=== PATIENT | male | born 1950 | race Caucasian/White ===

== ENCOUNTER → 2018-08-26 13:45 | Outpatient (CLI) | payer MEDICARE, OTHER, SELFPAY ==
[2017-11-18 12:42] VITALS: BMI 28.5
[2018-08-26 14:16] LABS: Absolute Lymphocyte Count 2.31 X10^3/ul (0.83-4.51); Absolute Neutrophil Count 3.8 X10^3/uL (2.0-7.7); Basophil# 0.02 X10^3/uL; Basophil% 0.3 % (0-1); Eosinophil# 0.13 X10^3/uL; Eosinophils% 1.9 % (0-5); Hematocrit 46.5 % (40-54); Hemoglobin 15.9 g/dl (13.0-16.5); Lymphocyte # 2.31 X10^3/ul (4.0); Lymphocyte % 33.6 % (19-41); Mean Corp Hgb Conc 34.2 g/gl (32-36); Mean Corpuscular Hgb 31.2 pg (27.0-32.0); Mean Corpuscular Volume 91.4 fL (80-94); Mean Platelet Vol. 9.7 fl (6.2-12.0); Monocyte# 0.57 X10^3/uL; Monocyte% 8.3 % (0-10); Neutrophil # 3.84 X10^3/uL (2.7-7.7); Neutrophil % 55.8 % (47-70); Platelet Count 331 K/mm3 (150-450); RBC Distribution Width CV 12.5 % (11.6-14.6); RBC Distribution Width SD 41.2 fl (35.1-43.9); Red Blood Count 5.09 M/mm3 (4.6-6.2); White Blood Count 6.9 K/mm3 (4.4-11.0)
[2018-08-26 14:20] LABS: POSITIVE COUNT NO; POSITIVE DIFFERENTIAL NO; POSITIVE MORPHOLOGY NO
[2018-08-26 14:42] LABS: Vitamin D,25 Hydroxy 27.4 ng/mL (29.95-100.01)
[2018-08-26 14:49] LABS: ALB/GLOB Ratio 0.8 RATIO (0.9-2.4); AST(SGOT) 35 U/L (15-37); Alanine Aminotransfer ALT/SGPT 56 U/L (16-61); Albumin, Serum 3.7 g/dL (3.2-5.0); Alkaline Phosphatase 81 U/L (45-117); Anion Gap 10 (5-15); BUN 31 mg/dL (7-18); BUN/Creat Ratio 23.8 RATIO (10-20); Chloride 101 mmol/L (98-107); EST Glomerular Filtration Rate 59 mL/min (>60); Est Glom Filt Rate - Afr Amer 71 mL/min (>60); Globulin 4.4 g/dL (2.2-4.2); Glucose 219 mg/dL (74-106); Potassium 4.3 mmol/L (3.5-5.1); Protein, Total 8.1 g/dL (6.4-8.2); Sodium Level 136 mmol/L (136-145)
[2018-08-26 15:36] LABS: PSA,Total - Annual Screen 1.43 ng/mL (0.00-4.00)
== END ==
PROVIDERS: Family Provider Family Medicine Geriatric Medicine; PCP Family Medicine Geriatric Medicine; Visit Provider Family Medicine Geriatric Medicine
DX: E55.9 Vitamin D deficiency, unspecified (principal); E11.9 Type 2 diabetes mellitus without complications; I10 Essential (primary) hypertension
CPT/HCPCS: 36415; 80053; 82306; 84153; 84443; 85025; G0103

== ENCOUNTER → 2018-11-25 13:37 | Outpatient (CLI) | payer MEDICARE, OTHER, SELFPAY ==
[2017-11-18 12:42] VITALS: BMI 28.5
[2018-11-25 16:58] LABS: Absolute Lymphocyte Count 2.54 X10^3/ul (0.83-4.51); Absolute Neutrophil Count 4.8 X10^3/uL (2.0-7.7); Basophil# 0.02 X10^3/uL; Basophil% 0.2 % (0-1); Eosinophil# 0.14 X10^3/uL; Eosinophils% 1.7 % (0-5); Hemoglobin 15.7 g/dl (13.0-16.5); Lymphocyte # 2.54 X10^3/ul (4.0); Lymphocyte % 31.4 % (19-41); Mean Corp Hgb Conc 32.7 g/gl (32-36); Mean Corpuscular Hgb 30.8 pg (27.0-32.0); Mean Corpuscular Volume 94.1 fL (80-94); Mean Platelet Vol. 9.7 fl (6.2-12.0); Monocyte# 0.63 X10^3/uL; Monocyte% 7.8 % (0-10); Neutrophil # 4.76 X10^3/uL (2.7-7.7); Neutrophil % 58.8 % (47-70); Platelet Count 337 K/mm3 (150-450); RBC Distribution Width CV 13.1 % (11.6-14.6); White Blood Count 8.1 K/mm3 (4.4-11.0)
[2018-11-25 16:59] LABS: POSITIVE COUNT NO; POSITIVE DIFFERENTIAL NO; POSITIVE MORPHOLOGY NO
[2018-11-25 17:14] LABS: Vitamin D,25 Hydroxy 18.2 ng/mL (29.95-100.01)
[2018-11-25 17:22] LABS: ALB/GLOB Ratio 0.9 RATIO (0.9-2.4); AST(SGOT) 24 U/L (15-37); Alanine Aminotransfer ALT/SGPT 44 U/L (16-61); Alkaline Phosphatase 70 U/L (45-117); Anion Gap 10 (5-15); BUN 26 mg/dL (7-18); BUN/Creat Ratio 21.1 RATIO (10-20); Calcium,Total 9.6 mg/dL (8.5-10.1); Chloride 103 mmol/L (98-107); Creatinine, Serum 1.23 mg/dL (0.70-1.30); EST Glomerular Filtration Rate 63 mL/min (>60); Est Glom Filt Rate - Afr Amer 76 mL/min (>60); Globulin 4.4 g/dL (2.2-4.2); Glucose 95 mg/dL (74-106); Potassium 4.7 mmol/L (3.5-5.1); Protein, Total 8.4 g/dL (6.4-8.2); Sodium Level 138 mmol/L (136-145); Thyroid Stim Hormone (TSH) 1.05 uIU/mL (0.358-3.74)
== END ==
PROVIDERS: Family Provider Family Medicine Geriatric Medicine; PCP Family Medicine Geriatric Medicine; Visit Provider Family Medicine Geriatric Medicine
DX: E11.9 Type 2 diabetes mellitus without complications (principal); E55.9 Vitamin D deficiency, unspecified; I10 Essential (primary) hypertension
CPT/HCPCS: 36415; 80053; 82306; 84443; 85025

== ENCOUNTER → 2020-02-20 11:03 | Outpatient (CLI) | payer MEDICARE, OTHER, SELFPAY ==
[2017-11-18 12:42] VITALS: BMI 28.5
[2020-02-20 12:18] LABS: Basophil# 0.02 X10^3/uL; Basophil% 0.4 % (0-1); Eosinophil# 0.03 X10^3/uL; Eosinophils% 0.5 % (0-5); Hemoglobin 16.5 g/dL (13.0-16.5); Lymphocyte % 37.3 % (19-41); Mean Corp Hgb Conc 34.4 g/dL (32-36); Mean Corpuscular Hgb 31.1 pg (27.0-32.0); Mean Corpuscular Volume 90.4 fL (80-94); Mean Platelet Vol. 10.1 fl (6.2-12.0); Monocyte# 0.45 X10^3/uL; NRBC Flagged by Analyzer 0 % (0-5); Neutrophil # 3.03 X10^3/uL (2.7-7.7); Neutrophil % 53.8 % (47-70); Platelet Count 286 K/mm3 (150-450); RBC Distribution Width CV 12.3 % (11.6-14.6); RBC Distribution Width SD 40.6 fl (35.1-43.9); Red Blood Count 5.31 M/mm3 (4.6-6.2); White Blood Count 5.6 K/mm3 (4.4-11.0)
[2020-02-20 12:34] LABS: Vitamin D,25 Hydroxy 38.3 ng/mL
[2020-02-20 12:50] LABS: ALB/GLOB Ratio 0.9 RATIO (0.9-2.4); AST(SGOT) 17 U/L (15-37); Alanine Aminotransfer ALT/SGPT 33 U/L (16-61); Albumin, Serum 3.9 g/dL (3.2-5.0); Alkaline Phosphatase 93 U/L (45-117); Anion Gap 7 (5-15); BUN 21 mg/dL (7-18); BUN/Creat Ratio 20.4 RATIO (10-20); Calcium,Total 9.4 mg/dL (8.5-10.1); Chloride 104 mmol/L (98-107); Creatinine, Serum 1.03 mg/dL (0.70-1.30); EST Glomerular Filtration Rate 77 mL/min (>60); Est Glom Filt Rate - Afr Amer 93 mL/min (>60); Globulin 4.5 g/dL (2.2-4.2); Glucose 213 mg/dL (74-106); PSA,Total - Annual Screen 1.37 ng/mL (0.00-4.00); Potassium 3.9 mmol/L (3.5-5.1); Protein, Total 8.4 g/dL (6.4-8.2); Sodium Level 137 mmol/L (136-145); Thyroid Stim Hormone (TSH) 1.13 uIU/mL (0.358-3.74)
== END ==
PROVIDERS: PCP Family Medicine Geriatric Medicine; Visit Provider Family Medicine Geriatric Medicine
DX: E11.9 Type 2 diabetes mellitus without complications (principal); E55.9 Vitamin D deficiency, unspecified; I10 Essential (primary) hypertension; Z12.5 Encounter for screening for malignant neoplasm of prostate
CPT/HCPCS: 36415; 80053; 82306; 84153; 84443; 85025; G0103

== ENCOUNTER → 2020-05-21 10:23 | Outpatient (CLI) | payer MEDICARE, OTHER, SELFPAY ==
[2017-11-18 12:42] VITALS: BMI 28.5
[2020-05-21 11:12] LABS: Absolute Lymphocyte Count 1.63 X10^3/uL (0.83-4.51); Absolute Neutrophil Count 3.3 X10^3/uL (2.0-7.7); Basophil# 0.02 X10^3/uL; Basophil% 0.4 % (0-1); Eosinophil# 0.06 X10^3/uL; Eosinophils% 1.1 % (0-5); Hemoglobin 14.4 g/dL (13.0-16.5); Lymphocyte # 1.63 X10^3/ul (4.0); Lymphocyte % 29.8 % (19-41); Mean Corp Hgb Conc 32.7 g/dL (32-36); Mean Corpuscular Hgb 30.7 pg (27.0-32.0); Mean Corpuscular Volume 93.8 fL (80-94); Mean Platelet Vol. 9.4 fl (6.2-12.0); Monocyte# 0.42 X10^3/uL; Monocyte% 7.7 % (0-10); NRBC Flagged by Analyzer 0 % (0-5); Neutrophil # 3.33 X10^3/uL (2.7-7.7); Neutrophil % 60.8 % (47-70); Platelet Count 351 K/mm3 (150-450); RBC Distribution Width CV 13.5 % (11.6-14.6); Red Blood Count 4.69 M/mm3 (4.6-6.2); White Blood Count 5.5 K/mm3 (4.4-11.0)
[2020-05-21 11:38] LABS: ALB/GLOB Ratio 0.9 RATIO (0.9-2.4); AST(SGOT) 10 U/L (15-37); Alanine Aminotransfer ALT/SGPT 21 U/L (16-61); Albumin, Serum 3.8 g/dL (3.2-5.0); Alkaline Phosphatase 71 U/L (45-117); Anion Gap 8 (5-15); BUN 29 mg/dL (7-18); BUN/Creat Ratio 27.1 RATIO (10-20); Calcium,Total 9.2 mg/dL (8.5-10.1); Chloride 100 mmol/L (98-107); Creatinine, Serum 1.07 mg/dL (0.70-1.30); EST Glomerular Filtration Rate 73 mL/min (>60); Est Glom Filt Rate - Afr Amer 89 mL/min (>60); Globulin 4.1 g/dL (2.2-4.2); Glucose 165 mg/dL (74-106); Protein, Total 7.9 g/dL (6.4-8.2); Sodium Level 137 mmol/L (136-145); Thyroid Stim Hormone (TSH) 0.89 uIU/mL (0.358-3.74)
[2020-05-21 11:46] LABS: Vitamin D,25 Hydroxy 41.2 ng/mL
== END ==
PROVIDERS: PCP Family Medicine Geriatric Medicine; Visit Provider Family Medicine Geriatric Medicine
DX: E11.9 Type 2 diabetes mellitus without complications (principal); E55.9 Vitamin D deficiency, unspecified; I10 Essential (primary) hypertension
CPT/HCPCS: 36415; 80053; 82306; 84443; 85025

== ENCOUNTER → 2020-08-23 10:57 | Outpatient (CLI) | payer MEDICARE, OTHER, SELFPAY ==
[2017-11-18 12:42] VITALS: BMI 28.5
[2020-08-23 12:32] LABS: Absolute Lymphocyte Count 1.94 X10^3/uL (0.83-4.51); Absolute Neutrophil Count 3.8 X10^3/uL (2.0-7.7); Basophil# 0.02 X10^3/uL; Basophil% 0.3 % (0-1); Eosinophil# 0.09 X10^3/uL; Eosinophils% 1.4 % (0-5); Hematocrit 44.9 % (40-54); Hemoglobin 14.6 g/dL (13.0-16.5); Lymphocyte # 1.94 X10^3/ul (4.0); Lymphocyte % 30.2 % (19-41); Mean Corp Hgb Conc 32.5 g/dL (32-36); Mean Corpuscular Hgb 30.3 pg (27.0-32.0); Mean Corpuscular Volume 93.2 fL (80-94); Mean Platelet Vol. 9.2 fl (6.2-12.0); Monocyte# 0.55 X10^3/uL; Monocyte% 8.6 % (0-10); NRBC Flagged by Analyzer 0 % (0-5); Platelet Count 295 K/mm3 (150-450); RBC Distribution Width CV 11.9 % (11.6-14.6); RBC Distribution Width SD 41.2 fl (35.1-43.9); Red Blood Count 4.82 M/mm3 (4.6-6.2); White Blood Count 6.4 K/mm3 (4.4-11.0)
[2020-08-23 12:46] LABS: Vitamin D,25 Hydroxy 39.4 ng/mL
[2020-08-23 12:57] LABS: ALB/GLOB Ratio 0.8 RATIO (0.9-2.4); AST(SGOT) 21 U/L (15-37); Alanine Aminotransfer ALT/SGPT 38 U/L (16-61); Albumin, Serum 3.8 g/dL (3.2-5.0); Alkaline Phosphatase 83 U/L (45-117); Anion Gap 6 (5-15); BUN 35 mg/dL (7-18); BUN/Creat Ratio 30.7 RATIO (10-20); Calcium,Total 9.5 mg/dL (8.5-10.1); Chloride 105 mmol/L (98-107); Creatinine, Serum 1.14 mg/dL (0.70-1.30); EST Glomerular Filtration Rate 68 mL/min (>60); Est Glom Filt Rate - Afr Amer 82 mL/min (>60); Globulin 4.5 g/dL (2.2-4.2); Glucose 163 mg/dL (74-106); Potassium 4.3 mmol/L (3.5-5.1); Protein, Total 8.3 g/dL (6.4-8.2); Sodium Level 135 mmol/L (136-145); Thyroid Stim Hormone (TSH) 1.04 uIU/mL (0.358-3.74)
== END ==
PROVIDERS: PCP Family Medicine Geriatric Medicine; Visit Provider Family Medicine Geriatric Medicine
DX: E11.9 Type 2 diabetes mellitus without complications (principal); E55.9 Vitamin D deficiency, unspecified; I10 Essential (primary) hypertension
CPT/HCPCS: 36415; 80053; 82306; 84443; 85025

== ENCOUNTER → 2020-12-06 10:17 | Outpatient (CLI) | payer MEDICARE, OTHER, SELFPAY ==
[2017-11-18 12:42] VITALS: BMI 28.5
[2020-12-06 12:31] LABS: Absolute Lymphocyte Count 2.33 X10^3/uL (0.83-4.51); Absolute Neutrophil Count 3.7 X10^3/uL (2.0-7.7); Basophil# 0.03 X10^3/uL; Basophil% 0.5 % (0-1); Eosinophil# 0.15 X10^3/uL; Eosinophils% 2.3 % (0-5); Hematocrit 45.7 % (40-54); Lymphocyte # 2.33 X10^3/ul (4.0); Mean Corp Hgb Conc 32.8 g/dL (32-36); Mean Corpuscular Hgb 31.3 pg (27.0-32.0); Mean Corpuscular Volume 95.4 fL (80-94); Mean Platelet Vol. 9.6 fl (6.2-12.0); Monocyte# 0.46 X10^3/uL; Monocyte% 6.9 % (0-10); NRBC Flagged by Analyzer 0 % (0-5); Neutrophil # 3.67 X10^3/uL (2.7-7.7); Platelet Count 332 K/mm3 (150-450); RBC Distribution Width CV 12.5 % (11.6-14.6); RBC Distribution Width SD 43.8 fl (35.1-43.9); Red Blood Count 4.79 M/mm3 (4.6-6.2); White Blood Count 6.7 K/mm3 (4.4-11.0)
[2020-12-06 13:10] LABS: Vitamin D,25 Hydroxy 36.8 ng/mL
[2020-12-06 13:13] LABS: ALB/GLOB Ratio 0.9 RATIO (0.9-2.4); AST(SGOT) 14 U/L (15-37); Alanine Aminotransfer ALT/SGPT 32 U/L (16-61); Albumin, Serum 3.9 g/dL (3.2-5.0); Alkaline Phosphatase 69 U/L (45-117); Anion Gap 6 (5-15); BUN 33 mg/dL (7-18); Calcium,Total 9.4 mg/dL (8.5-10.1); Chloride 101 mmol/L (98-107); Creatinine, Serum 1.27 mg/dL (0.70-1.30); EST Glomerular Filtration Rate 60 mL/min (>60); Est Glom Filt Rate - Afr Amer 73 mL/min (>60); Globulin 4.2 g/dL (2.2-4.2); Glucose 296 mg/dL (74-106); Potassium 4.3 mmol/L (3.5-5.1); Protein, Total 8.1 g/dL (6.4-8.2); Sodium Level 135 mmol/L (136-145); Thyroid Stim Hormone (TSH) 1.04 uIU/mL (0.358-3.74)
== END ==
PROVIDERS: PCP Family Medicine Geriatric Medicine; Visit Provider Family Medicine Geriatric Medicine
DX: E11.9 Type 2 diabetes mellitus without complications (principal); E55.9 Vitamin D deficiency, unspecified; I10 Essential (primary) hypertension
CPT/HCPCS: 36415; 80053; 82306; 84443; 85025

== ENCOUNTER → 2021-03-25 13:46 | Outpatient (CLI) | payer MEDICARE, SELFPAY ==
[2017-11-18 12:42] VITALS: BMI 28.5
[2021-03-25 17:00] LABS: Absolute Lymphocyte Count 3.19 X10^3/uL (0.83-4.51); Absolute Neutrophil Count 5.4 X10^3/uL (2.0-7.7); Basophil# 0.05 X10^3/uL; Basophil% 0.5 % (0-1); Eosinophil# 0.12 X10^3/uL; Eosinophils% 1.3 % (0-5); Hematocrit 46.2 % (40-54); Hemoglobin 15.2 g/dL (13.0-16.5); Lymphocyte # 3.19 X10^3/ul (0.83-4.51); Lymphocyte % 33.3 % (19-41); Mean Corp Hgb Conc 32.9 g/dL (32-36); Mean Corpuscular Hgb 31.2 pg (27.0-32.0); Mean Corpuscular Volume 94.9 fL (80-94); Mean Platelet Vol. 9.6 fl (6.2-12.0); Monocyte# 0.74 X10^3/uL; Monocyte% 7.7 % (0-10); NRBC Flagged by Analyzer 0 % (0-5); Neutrophil # 5.43 X10^3/uL (2.7-7.7); Neutrophil % 56.7 % (47-70); Platelet Count 370 K/mm3 (150-450); RBC Distribution Width CV 12.7 % (11.6-14.6); RBC Distribution Width SD 44.3 fl (35.1-43.9); Red Blood Count 4.87 M/mm3 (4.6-6.2); White Blood Count 9.6 K/mm3 (4.4-11.0)
[2021-03-25 17:17] LABS: Vitamin D,25 Hydroxy 44.7 ng/mL
[2021-03-25 17:25] LABS: ALB/GLOB Ratio 0.9 RATIO (0.9-2.4); AST(SGOT) 18 U/L (15-37); Alanine Aminotransfer ALT/SGPT 26 U/L (16-61); Alkaline Phosphatase 76 U/L (45-117); Anion Gap 10 (5-15); BUN 32 mg/dL (7-18); BUN/Creat Ratio 27.6 RATIO (10-20); Calcium,Total 9.7 mg/dL (8.5-10.1); Chloride 104 mmol/L (98-107); Creatinine, Serum 1.16 mg/dL (0.70-1.30); EST Glomerular Filtration Rate 67 mL/min (>60); Est Glom Filt Rate - Afr Amer 80 mL/min (>60); Globulin 4.4 g/dL (2.2-4.2); Glucose 59 mg/dL (74-106); PSA,Total - Annual Screen 2.22 ng/mL (0.00-4.00); Potassium 4.2 mmol/L (3.5-5.1); Protein, Total 8.4 g/dL (6.4-8.2); Sodium Level 140 mmol/L (136-145); Thyroid Stim Hormone (TSH) 1.39 uIU/mL (0.358-3.74)
== END ==
PROVIDERS: PCP Family Medicine Geriatric Medicine; Visit Provider Family Medicine Geriatric Medicine
DX: I10 Essential (primary) hypertension (principal); E11.9 Type 2 diabetes mellitus without complications; E55.9 Vitamin D deficiency, unspecified; Z12.5 Encounter for screening for malignant neoplasm of prostate
CPT/HCPCS: 36415; 80053; 82306; 84153; 84443; 85025; G0103

== ENCOUNTER → 2021-07-18 15:38 | Outpatient (CLI) | payer MEDICARE, OTHER, SELFPAY ==
--- NOTE | 2021-07-18 16:03 | CT_ITS ---
STUDY: CT ABDOMEN AND PELVIS WITHOUT CONTRAST REASON FOR EXAM: Male, 70 years old. ABD PAIN RADIATION DOSAGE (If Supplied By Facility): CTDIvol = ( 14.32 ) mGy, DLP = ( 819.18 ) mGycm TECHNIQUE: Transaxial images were obtained from the dome of the diaphragm to the symphysis pubis without oral contrast, and without intravenous contrast. Sagittal and coronal images were reconstructed. Individualized dose optimization techniques were used for this CT. COMPARISON: November 28 2016 FINDINGS: There is minor subsegmental atelectasis or interstitial thickening at both lung bases.. The visualized portions of the heart are within normal limits. Normal liver. Normal gallbladder and extrahepatic biliary system. Normal spleen. Normal pancreas. Normal bilateral adrenal glands. No evidence for renal obstruction or mass. Nonspecific stranding in perinephric fat bilaterally. Normal visualized stomach. Mild nonspecific ileus with diffuse fecal retention in the colon.. Diverticular changes of the descending and sigmoid colon without evidence for acute diverticulitis.. No evidence for acute appendicitis.. Mild extrahepatic changes of the aorta without evidence for aneurysm. Normal inferior vena cava. Normal retroperitoneum. There is nonspecific thickening of the perez of the bladder of uncertain clinical significance. There are bilateral fat-containing inguinal hernias slightly larger on the left. Lumbar spine demonstrates moderate spondylosis CT/Abdomen/Pelvis without Cont IMPRESSION: Mild nonspecific ileus with diffuse fecal retention in the colon. Diverticular disease of colon without evidence for acute diverticulitis Other findings as above Electronically Signed: Chris Casarez MD at 16:57 EDT , Service support ,
[2021-07-18 17:38] LABS: Absolute Lymphocyte Count 1.82 X10^3/uL (0.83-4.51); Absolute Neutrophil Count 4.9 X10^3/uL (2.0-7.7); Basophil# 0.03 X10^3/uL; Basophil% 0.4 % (0-1); Eosinophils% 1.3 % (0-5); Hematocrit 45.1 % (40-54); Lymphocyte # 1.82 X10^3/ul (0.83-4.51); Lymphocyte % 24.1 % (19-41); Mean Corp Hgb Conc 33.3 g/dL (32-36); Mean Corpuscular Hgb 30.7 pg (27.0-32.0); Mean Corpuscular Volume 92.4 fL (80-94); Mean Platelet Vol. 9.5 fl (6.2-12.0); Monocyte# 0.64 X10^3/uL; Monocyte% 8.5 % (0-10); NRBC Flagged by Analyzer 0 % (0-5); Neutrophil # 4.94 X10^3/uL (2.7-7.7); Neutrophil % 65.3 % (47-70); Platelet Count 361 K/mm3 (150-450); RBC Distribution Width CV 12.6 % (11.6-14.6); RBC Distribution Width SD 42.6 fl (35.1-43.9); Red Blood Count 4.88 M/mm3 (4.6-6.2); White Blood Count 7.6 K/mm3 (4.4-11.0)
[2021-07-18 17:52] LABS: Anion Gap 7 (5-15); BUN 27 mg/dL (7-18); BUN/Creat Ratio 22.7 RATIO (10-20); Calcium,Total 9.9 mg/dL (8.5-10.1); Chloride 100 mmol/L (98-107); Creatinine, Serum 1.19 mg/dL (0.70-1.30); EST Glomerular Filtration Rate 65 mL/min (>60); Est Glom Filt Rate - Afr Amer 78 mL/min (>60); Glucose 225 mg/dL (74-106); Potassium 4.3 mmol/L (3.5-5.1); Sodium Level 135 mmol/L (136-145)
== END ==
PROVIDERS: PCP Family Medicine Geriatric Medicine; Referring Provider Family Medicine Geriatric Medicine; Visit Provider Family Medicine Geriatric Medicine
DX: R10.9 Unspecified abdominal pain (principal); N39.0 Urinary tract infection, site not specified
CPT/HCPCS: 36415; 74176; 80048; 85025; 87077; 87086; 87088; 87186

== ENCOUNTER → 2021-08-05 12:29 | Outpatient (CLI) | payer MEDICARE, OTHER, SELFPAY ==
--- NOTE | 2021-08-05 12:36 | RAD_ITS ---
STUDY: X-RAY - ABDOMEN/PELVIS REASON FOR EXAM: Male, 70 years old. FECAL IMPACTION TECHNIQUE: AP supine and upright views of the abdomen and pelvis. COMPARISON: None. FINDINGS: Normal visualized lung bases. There is an unremarkable bowel gas pattern. There is no demonstrated free abdominal air. The visualized liver, spleen and kidneys are grossly normal in size and morphology. Normal soft tissue structures. Normal visualized osseous structures. RAD/Abd Inc Decub and/or Erect IMPRESSION: Normal x-ray examination of the abdomen and pelvis. Electronically Signed: Miquel Strong MD at 8:11 EDT Tel , Service support ,
[2021-08-05 13:00] LABS: Absolute Lymphocyte Count 2.47 X10^3/uL (0.83-4.51); Absolute Neutrophil Count 7.5 X10^3/uL (2.0-7.7); Basophil# 0.04 X10^3/uL; Basophil% 0.4 % (0-1); Eosinophil# 0.28 X10^3/uL; Eosinophils% 2.5 % (0-5); Hematocrit 47.7 % (40-54); Hemoglobin 15.8 g/dL (13.0-16.5); Lymphocyte # 2.47 X10^3/ul (0.83-4.51); Lymphocyte % 22.1 % (19-41); Mean Corp Hgb Conc 33.1 g/dL (32-36); Mean Corpuscular Hgb 30.7 pg (27.0-32.0); Mean Corpuscular Volume 92.6 fL (80-94); Mean Platelet Vol. 8.9 fl (6.2-12.0); Monocyte# 0.81 X10^3/uL; Monocyte% 7.2 % (0-10); NRBC Flagged by Analyzer 0 % (0-5); Neutrophil # 7.54 X10^3/uL (2.7-7.7); Neutrophil % 67.4 % (47-70); Platelet Count 339 K/mm3 (150-450); RBC Distribution Width CV 12.6 % (11.6-14.6); RBC Distribution Width SD 43.2 fl (35.1-43.9); Red Blood Count 5.15 M/mm3 (4.6-6.2); White Blood Count 11.2 K/mm3 (4.4-11.0)
[2021-08-05 13:15] LABS: D-Dimer Quantitative (DVT/PE) 1.52 FEU/ug/m (0.27-0.49)
[2021-08-05 13:27] LABS: Anion Gap 5 (5-15); BUN 35 mg/dL (7-18); BUN/Creat Ratio 28.7 RATIO (10-20); Calcium,Total 10.2 mg/dL (8.5-10.1); Chloride 102 mmol/L (98-107); Creatinine, Serum 1.22 mg/dL (0.70-1.30); EST Glomerular Filtration Rate 63 mL/min (>60); Est Glom Filt Rate - Afr Amer 76 mL/min (>60); Glucose 113 mg/dL (74-106); Potassium 4.8 mmol/L (3.5-5.1); Sodium Level 136 mmol/L (136-145); Troponin-I HS 5 pg/mL (3.0-78.0)
[2021-08-06 11:00] LABS: Myoglobin, Serum 46 ng/mL (28-72)
== END ==
PROVIDERS: PCP Family Medicine Geriatric Medicine; Referring Provider Family Medicine Geriatric Medicine; Visit Provider Family Medicine Geriatric Medicine
DX: R07.9 Chest pain, unspecified (principal); K56.41 Fecal impaction
CPT/HCPCS: 36415; 74019; 80048; 83874; 84484; 85025; 85379

== ENCOUNTER → 2021-08-05 15:54 | Outpatient (CLI) | payer MEDICARE, OTHER, SELFPAY ==
--- NOTE | 2021-08-05 16:37 | CT_ITS ---
STUDY: CTA CHEST REASON FOR EXAM: Male, 70 years old. ABN COAGULATION PROFILE RADIATION DOSAGE (If Supplied By Facility): CTDIvol = ( 10.97 ) mGy, DLP = ( 464.79 ) mGycm TECHNIQUE: The examination was performed with the intravenous administration of IV 100mL Isovue-370. Post-processing of the angiographic images was performed, with multiplanar reformation and 3D reconstruction. Individualized dose optimization techniques were used for this CT. COMPARISON: None. FINDINGS: Normal enhancement of the main pulmonary artery and right and left pulmonary arteries. Normal enhancement of the bilateral peripheral pulmonary arteries. There is no demonstrated pulmonary embolism. Normal thoracic aorta and visualized great vessels. There is no demonstrated aortic dissection. Normal heart and pericardium. Normal mediastinum. Normal hilar regions. Normal visualized trachea and bronchi. The lungs are well expanded. Bilateral small granulomas. Normal pleura. Normal chest wall structures. Normal osseous structures. Normal visualized upper abdomen. CT/CTA Chest W/WO Contrast IMPRESSION: No demonstrated pulmonary embolism or arterial dissection. Electronically Signed: Colton Rain DO at 18:39 EDT Tel [phone], Service support ,
== END ==
PROVIDERS: PCP Family Medicine Geriatric Medicine; Referring Provider Family Medicine Geriatric Medicine; Visit Provider Family Medicine Geriatric Medicine
DX: R79.1 Abnormal coagulation profile (principal); R07.9 Chest pain, unspecified; K56.41 Fecal impaction
CPT/HCPCS: 36415; 71275; 74019; 80048; 83874; 84484; 85025; 85379; Q9967

== ENCOUNTER → 2021-08-06 15:20 | Outpatient (CLI) | payer MEDICARE, OTHER, SELFPAY ==
[2021-08-06 17:05] LABS: Absolute Lymphocyte Count 1.94 X10^3/uL (0.83-4.51); Absolute Neutrophil Count 7.4 X10^3/uL (2.0-7.7); Basophil# 0.04 X10^3/uL; Basophil% 0.4 % (0-1); Eosinophil# 0.26 X10^3/uL; Eosinophils% 2.5 % (0-5); Hematocrit 46.9 % (40-54); Hemoglobin 15.8 g/dL (13.0-16.5); Lymphocyte # 1.94 X10^3/ul (0.83-4.51); Lymphocyte % 18.6 % (19-41); Mean Corp Hgb Conc 33.7 g/dL (32-36); Mean Corpuscular Hgb 31.3 pg (27.0-32.0); Mean Corpuscular Volume 93.1 fL (80-94); Mean Platelet Vol. 9.4 fl (6.2-12.0); Monocyte# 0.74 X10^3/uL; Monocyte% 7.1 % (0-10); NRBC Flagged by Analyzer 0 % (0-5); Neutrophil # 7.39 X10^3/uL (2.7-7.7); Platelet Count 340 K/mm3 (150-450); RBC Distribution Width CV 12.7 % (11.6-14.6); RBC Distribution Width SD 43.6 fl (35.1-43.9); Red Blood Count 5.04 M/mm3 (4.6-6.2); White Blood Count 10.4 K/mm3 (4.4-11.0)
[2021-08-06 18:08] LABS: Anion Gap 8 (5-15); BUN 41 mg/dL (7-18); BUN/Creat Ratio 30.8 RATIO (10-20); CPK Total, Creatine Kinase 73 U/L (39-308); Calcium,Total 9.1 mg/dL (8.5-10.1); Chloride 101 mmol/L (98-107); Creatinine, Serum 1.33 mg/dL (0.70-1.30); EST Glomerular Filtration Rate 57 mL/min (>60); Est Glom Filt Rate - Afr Amer 69 mL/min (>60); Glucose 123 mg/dL (74-106); Potassium 4.2 mmol/L (3.5-5.1); Sodium Level 137 mmol/L (136-145); Troponin-I HS 6 pg/mL (3.0-78.0)
[2021-08-08 10:49] LABS: Myoglobin, Serum 64 ng/mL (28-72)
== END ==
PROVIDERS: PCP Family Medicine Geriatric Medicine; Referring Provider Family Medicine Geriatric Medicine; Visit Provider Family Medicine Geriatric Medicine
DX: R07.9 Chest pain, unspecified (principal)
CPT/HCPCS: 36415; 80048; 82550; 83874; 84484; 85025; 85379

== ENCOUNTER → 2021-08-13 13:17 | Outpatient (CLI) | payer MEDICARE, OTHER, SELFPAY ==
--- NOTE | 2021-08-13 13:45 | MRI_ITS ---
History: LBP Technique: T1 and T2 MR imaging of the lumbar spine performed without contrast enhancement in axial and sagittal planes. Findings: Alignment of the lumbar vertebral bodies is normal. No bone marrow edema. Multilevel disc space narrowing most notable at L4-5 where there is Modic type III endplate change. Conus medullaris and cauda equina are normal. Paraspinal soft tissues are normal. L1-2: No disc protrusion. Normal caliber spinal canal and neural foramina. L2-3: Diffuse disc bulging causing mild impression on the thecal sac. Intact neural foramina. L3-4: Mild disc bulging and facet arthropathy. Minor impression on the thecal sac. Mild narrowing of the neural foramina. L4-5: Central disc protrusion, ligamentous redundancy and facet arthropathy results in moderate spinal stenosis and moderate to severe neural foraminal stenosis. L5-S1: Mild disc bulging without significant impingement on the spinal canal. Facet arthropathy and disc bulging result in bilateral neural foraminal narrowing. MRI/Spine Lumbar (Routine) IMPRESSION: Moderate L4-5 spinal stenosis. Prominent neural foraminal narrowing at the L4-5 and L5-S1 levels. at 1427 Reported and signed by: Sahil Chen MD Electronically Signed: Sahil Chen MD at 14:26 EDT Tel , Service support ,
== END ==
PROVIDERS: PCP Family Medicine Geriatric Medicine; Visit Provider Family Medicine Geriatric Medicine
DX: M54.50 Low back pain, unspecified (principal)
CPT/HCPCS: 72148

== ENCOUNTER → 2021-08-15 06:37 | Outpatient (CLI) | payer MEDICARE, OTHER, SELFPAY ==
--- NOTE | 2021-08-16 13:47 | STRESSREP ---
Stress Test Report Date: 08/15/2021 Procedure: Exercise tolerance test/imaging study Indications: Chest pain Consent: Per the patient Procedure: The patient exercised on a Tobin protocol for 5 minutes and 59 seconds achieving a peak heart rate of 150 bpm (98% predicted maximal heart rate) with a peak blood pressure 168/90 mmHg and a peak MET capacity of 7 METs. The baseline ECG demonstrated normal sinus rhythm, possible prior anteroseptal AR. The peak exercise ECG demonstrated sinus tachycardia with upsloping ST depressions in the inferior and lateral leads. EKG during recovery revealed return of ST segments to baseline [There were no cardiac dysrhythmias pretest, during exercise, or recovery]. The functional capacity was considered average for age. Patient had 2/10 chest pressure at peak exercise which resolved during recovery. The examination was discontinued secondary to achieving target heart rate. Impression: 1. Technically adequate (percent predicted maximal heart rate greater than 85%) exercise tolerance test 2. Stress test is negative for exercise-induced EKG changes of ischemia 3. The test test is positive for exercise-induced chest pain 4. Functional capacity is average for age 5. Nuclear images pending Myocardial perfusion imaging study: Technique: The patient was injected with 12 mCi of technetium 99m Cardiolite and subsequently rest SPECT Cardiolite nuclear imaging was obtained in the horizontal long, vertical long, and short axis views. The patient exercised on a Tobin protocol. Please see above for details. The patient was injected with 34.1 mCi of technetium 99m Cardiolite and subsequently stress SPECT Cardiolite nuclear imaging was obtained in the horizontal long, vertical long, and short axis views. A gated Cardiolite study at peak stress was obtained. Interpretation: Rest and stress SPECT Cardiolite nuclear imaging status post realignment, normalization, and attenuation correction, demonstrates overall normal myocardial radioisotope uptake. The gated Cardiolite study demonstrates no significant regional wall motion abnormalities. The reported LVEF is 67%. Impression: 1. There is no evidence of significant ischemia or infarction. 2. The gated Cardiolite study reports an LVEF of 67%. This note was generated with [employer] software. It may contain incorrect words, spelling, and punctuation that were not noted in checking the note before signing.
== END ==
PROVIDERS: PCP Family Medicine Geriatric Medicine; Referring Provider Family Medicine Geriatric Medicine; Visit Provider Family Medicine Geriatric Medicine
DX: R06.02 Shortness of breath (principal); R07.9 Chest pain, unspecified
CPT/HCPCS: 78452; 93017; A9500; A4216

== ENCOUNTER 2021-09-02 09:18 | Day surgery (SDC) | payer MEDICARE, OTHER, SELFPAY ==
[2021-09-02] VITALS (7 sets, daily range): BP systolic 84–112; BP diastolic 61–72; PULSE 16–92; RESP 16; TEMP 36.4–36.8; O2SAT 93–97; BMI 28.0
--- NOTE | 2021-09-02 | COLBX_PTH ---
PATIENT: JOSE HATHAWAY LOC: EN U#:[id number] AGE/SX: 70/M ROOM: RE09/02/[address]: Dr. Robert Flores DO : 1950 BED: DIS: 09/02/2021 SPEC #: [id number] RECD: 09/02/21 14:58 STATUS: EVERARDO CHAVEZ #: [id number] LORRAINE: 09/02/21 00:[address]: Robert Flores DEPT: SURGICAL PATHOLOGY RECD BY: José Miguel Gill ENTERED: 09/03/21 09:14 SP TYPE: COLON BX OTHR DR: Dr. Adam Alex MD Tissues: Sigmoid colon biopsy Procedures: Surgery Specimen Level IV HEADER OPERATION: Colonoscopy (MAC) PRE-OP DIAGNOSIS: Screening TISSUE SUBMITTED: Sigmoid polyp biopsy MICROSCOPIC DIAGNOSIS Sigmoid colon polyp, biopsy: Fragments of tubular adenoma. AM:am 09/04/21 MICROSCOPIC DESCRIPTION Slides are reviewed. GROSS DESCRIPTION Received in fixative is one container labeled with the patient's name and designated biopsy sigmoid polyp. The specimen consists of multiple irregular fragments of light pitt soft tissue that in aggregate measure 1.2 x 0.3 x 0.1 cm. The specimen is totally submitted in one cassette. / SJ:misael 09/03/2021 TC:5 CPT: 64398
[2021-09-02] MEDS: Lactated Ringers 1,000 ML 15 ML IV (09:55)
[2021-09-02 10:06] LABS: Bedside Glucose 209 mg/dL (70-110)
--- NOTE | 2021-09-02 10:44 | HP.PCM_ITS ---
History and Physical Date of Admission: 09/02/21 Visit Reasons: BOWEL BLOCKAGE/DR [facility]AG[facility] REFERRAL Chief Complaint: Cough Allergies amoxicillin Allergy (Verified 08/08/21 13:47) Swelling nitroglycerin Allergy (Verified 08/08/21 13:47) SEVERE HYPOTENSION hydrocodone [From Vicodin] Adverse Reaction (Verified 08/08/21 13:47) Other Medications glimepiride 4 mg PO BID 11/28/16 [History Confirmed 08/08/21] lisinopril 20 mg PO DAILY 11/28/16 [History Confirmed 08/08/21] metformin 1,000 mg PO BIDCM 11/28/16 [History Confirmed 08/08/21] simvastatin 40 mg PO QHS 11/28/16 [History Confirmed 08/08/21] aspirin 325 mg tablet 325 mg PO QDAY 11/18/17 [History Confirmed 08/08/21] azithromycin 250 mg tablet 250 mg PO QDAY #6 tab 11/18/17 [Rx Confirmed 08/08/21] sodium,potassium,mag sulfates 17.5 gram-3.13 gram-1.6 gram oral soln 480 ml PO Q10-20M #354 ml 08/08/21 [Rx Confirmed 08/08/21] [facility] Medical History (Updated 08/08/21 @ 14:[address] Jones Friend, DO) Appendicitis Diabetes HTN (hypertension) Ileus radial shortening Surgical History H/O arthroscopic knee surgery H/O hernia repair History of carpal tunnel surgery History of knee replacement Social History Smoking Status: Never smoker alcohol intake: never HPI HPI Chief Complaint: Cough Details: JOSE HATHAWAY, is a 70 M who presents to the office today for abdominal pain. He has been having RLQ abdominal pain for the last 3-4 weeks. Negative for kidney stones. There is workup did find an ileus in his colon. He does have a history of diabetes mellitus and has been on Metformin grams twice a day. He was given Golytley prep performed with no effect. He was given magnesium citrate performed with no effect. Imaging repeated a KUB showed that the ileus was still present. He typically does not have difficulty with bowel movements. The couple week prior to onset of symptoms he had been having a little more difficulty with constipation. He had a colonoscopy approximately 8 months ago and there were no abnormalities found. He does not know if he has a history of diverticular disease. He said that he did not have any polyps that were found. He has no family history of colon cancer. He has no family history or personal history of any rheumatologic disease or inflammatory bowel disease. His weight has been stable. He has been having some back pain and is scheduled to get a ride. ROS Cardio Cardiology: Positive for chest pain at rest and shortness of breath Gastro GI: Positive for abdominal pain, bloating, change in bowel habits, constipation, diarrhea and heartburn Musc Musculoskeletal: Positive for back pain Exam Const General: cooperative and comfortable Nutritional Appearance: average body habitus and well nourished HENMT Head: normal to inspection Ears: hearing grossly normal bilaterally Nose: external nose normal Face and sinus: normal facial exam Mouth: oral mucosae normal Throat: posterior oropharynx normal Eyes General: appearance normal, both eyes and all related structures Neck Neck: normal visual inspection Chest Chest palpation & inspection: normal inspection of the chest and normal palpation of entire chest wall Resp Effort & Inspection: normal respiratory effort Auscultation: Bilateral: Clear to Auscultation Cardio Palpation: normal PMI Rate: regular rate Rhythm: regular rhythm GI Inspection: normal to inspection Auscultation: normal bowel sounds Percussion: normal to percussion Palpation: no hepatosplenomegaly Skin General: no rashes or lesions noted Neuro General: patient alert Extrem General: normal to inspection Psych Affect: normal affect Quality Reporting Tobacco Screening ([facility] 138) Smoking Status: Never smoker Assessment and Plan Assessment and Plan (1) Ileus: Status: Acute Plan - Dr. Jones Friend, DO: Ileus is a temporary lack of the normal muscle contractions of the intestines. Abdominal surgery and drugs that interfere with the intestine's movements are a common cause. Bloating, vomiting, constipation, cramps, and loss of appetite occur. Risk factor for this diagnosis would be diabetes mellitus, hypoalbuminemia in the setting of nephrotic syndrome, infiltrative disease, such as myeloma, amyloidosis, sarcoidosis or hemochromatosis. We will get a colonoscopy so we can evaluate his colon and perform biopsies. He may also need blood work. Plan Details Other Medications: New: sodium,potassium,mag sulfates 17.5-3.13-1.6 gram (Suprep Bowel Prep Kit) 480 mL PO Q10-20M 354 mL 0RF I have re-examined the patient. There are no clinical changes since date of exam.
--- NOTE | 2021-09-02 10:48 | OP.COLON_ITS ---
Patient Name: Darrel Sandoval Procedure Date: 09/02/2021 10:07 AM Date of : 1950 Age: 70 Procedure: Colonoscopy Indications: Screening for colorectal malignant neoplasm Providers: Robert Flores DO Medicines: See the Anesthesia note for documentation of the administered medications Patient Profile: Last Colonoscopy: 10 years ago. Complications: No immediate complications. Procedure: Pre-Anesthesia Assessment: - Prior to the procedure, a History and Physical was performed, and patient medications and allergies were reviewed. The patient is competent. The risks and benefits of the procedure and the sedation options and risks were discussed with the patient. All questions were answered and informed consent was obtained. Patient identification and proposed procedure were verified by the physician in the pre-procedure area. Mental Status Examination: alert and oriented. Airway Examination: normal oropharyngeal airway and neck mobility. Respiratory Examination: clear to auscultation. CV Examination: normal. Prophylactic Antibiotics: The patient does not require prophylactic antibiotics. Prior Anticoagulants: The patient has taken no previous anticoagulant or antiplatelet agents. After reviewing the risks and benefits, the patient was deemed in satisfactory condition to undergo the procedure. The anesthesia plan was to use moderate sedation / analgesia (conscious sedation). Immediately prior to administration of medications, the patient was re-assessed for adequacy to receive sedatives. The heart rate, respiratory rate, oxygen saturations, blood pressure, adequacy of pulmonary ventilation, and response to care were monitored throughout the procedure. The physical status of the patient was re-assessed after the procedure. After I obtained informed consent, the scope was passed under direct vision. Throughout the procedure, the patient's blood pressure, pulse, and oxygen saturations were monitored continuously. The pediatric colonoscope was introduced through the anus and advanced to the terminal ileum, with identification of the appendiceal orifice and IC valve. The terminal ileum, ileocecal valve, appendiceal orifice, and rectum were photographed. Moderate Sedation: Moderate (conscious) sedation was administered by the endoscopy nurse and supervised by the endoscopist. The patient's oxygen saturation, heart rate, blood pressure and response to care were monitored. Total physician intraservice time was 15 minutes. Scope In: 10:23:57 AM Scope Withdrawal Time 0 hours 11 minutes 3 seconds Scope Out: 10:41:09 AM Total Procedure Duration Time 0 hours 17 minutes 12 seconds Findings: The perianal and digital rectal examinations were normal. Multiple small and large-mouthed diverticula were found in the sigmoid colon, descending colon and splenic flexure. There was no evidence of diverticular bleeding. Two sessile polyps were found in the sigmoid colon. The polyps were 1 to 2 mm in size. These polyps were removed with a hot snare. Resection and retrieval were complete. Verification of patient identification for the specimen was done. Estimated blood loss was minimal. The terminal ileum appeared normal. Impression: - Moderate diverticulosis in the sigmoid colon, in the descending colon and at the splenic flexure. There was no evidence of diverticular bleeding. - Two 1 to 2 mm polyps in the sigmoid colon, removed with a hot snare. Resected and retrieved. - The examined portion of the ileum was normal. Recommendation: - Discharge patient to home. - Resume previous diet. - Continue present medications. - Await pathology results. - Repeat colonoscopy in 5 years for surveillance. - Return to GI office in 2 weeks. Procedure Code(s): --- Professional --- 01322, Colonoscopy, flexible; with removal of tumor(s), polyp(s), or other lesion(s) by snare technique G0500, Moderate sedation services provided by the same physician or other qualified health health care facility administrator performing a gastrointestinal endoscopic service that sedation supports, requiring the presence of an independent trained observer to assist in the monitoring of the patient's level of consciousness and physiological status; initial 15 minutes of intra-service time; patient age 5 years or older (additional time may be reported with 51402, as appropriate) Diagnosis Code(s): --- Professional --- Z12.11, Encounter for screening for malignant neoplasm of colon D12.5, Benign neoplasm of sigmoid colon K57.30, Diverticulosis of large intestine without perforation or abscess without bleeding CPT copyright 2017 [employer]. All rights reserved. The codes documented in this report are preliminary and upon hcc coders review may be revised to meet current compliance requirements. Robert Flores DO 09/02/2021 10:48:14 AM This report has been signed electronically. Number of Addenda: 1 Note Initiated On: 09/02/2021 10:07 AM Addendum Number: 1 Addendum Date: 06/13/2022 6:32:29 AM MAC was used instead of moderate sedation for this patient. Robert Flores DO 06/13/2022 6:32:37 AM This report has been signed electronically.
--- NOTE | 2021-09-02 10:49 | OP.CCLET_ITS ---
06/13/2022 Adam Alex MD [address] [place] [address] Re : [facility] Alex This procedure was performed on Thursday, September 02, 2021. My impressions and recommendations are as follows: Impressions : - Moderate diverticulosis in the sigmoid colon, in the descending colon and at the splenic flexure. There was no evidence of diverticular bleeding. - Two 1 to 2 mm polyps in the sigmoid colon, removed with a hot snare. Resected and retrieved. - The examined portion of the ileum was normal. Recommendations : - Discharge patient to home. - Resume previous diet. - Continue present medications. - Await pathology results. - Repeat colonoscopy in 5 years for surveillance. - Return to GI office in 2 weeks. My findings are described in the full procedure note, which is enclosed. If I can be of further assistance, please feel free to contact me at . Sincerely, Robert Flores, 09/02/2021 10:48:14 AM This report has been signed electronically.
== END 2021-09-02 12:37 ==
LOC: EN 09:20 → AC 09:20
PROVIDERS: PCP Family Medicine Geriatric Medicine; Referring Provider Family Medicine Geriatric Medicine; Visit Provider Internal Medicine Gastroenterology
PROC: 0DJD8ZZ Inspection of Lower Intestinal Tract, Via Natural or Artificial Opening Endoscopic (ICD-10-PCS; CPT 45378; principal; 2021-09-02 10:10)
DX: Z12.11 Encounter for screening for malignant neoplasm of colon (principal); D12.5 Benign neoplasm of sigmoid colon; K56.7 Ileus, unspecified; K57.30 Diverticulosis of large intestine without perforation or abscess without bleeding; E11.9 Type 2 diabetes mellitus without complications; I10 Essential (primary) hypertension
CPT/HCPCS: 45385; 82962; 88305; J7120; J2405

== ENCOUNTER → 2021-09-23 13:37 | Outpatient (CLI) | payer MEDICARE, OTHER, SELFPAY ==
[2021-09-23 18:39] LABS: Absolute Lymphocyte Count 2.42 X10^3/uL (0.83-4.51); Absolute Neutrophil Count 5.9 X10^3/uL (2.0-7.7); Basophil# 0.04 X10^3/uL; Basophil% 0.4 % (0-1); Eosinophils% 1.1 % (0-5); Hematocrit 42.3 % (40-54); Hemoglobin 14.3 g/dL (13.0-16.5); Lymphocyte # 2.42 X10^3/ul (0.83-4.51); Lymphocyte % 26.2 % (19-41); Mean Corp Hgb Conc 33.8 g/dL (32-36); Mean Corpuscular Hgb 31.7 pg (27.0-32.0); Mean Corpuscular Volume 93.8 fL (80-94); Mean Platelet Vol. 9.3 fl (6.2-12.0); Monocyte# 0.73 X10^3/uL; Monocyte% 7.9 % (0-10); NRBC Flagged by Analyzer 0 % (0-5); Neutrophil # 5.87 X10^3/uL (2.7-7.7); Neutrophil % 63.7 % (47-70); Platelet Count 398 K/mm3 (150-450); RBC Distribution Width CV 12.9 % (11.6-14.6); Red Blood Count 4.51 M/mm3 (4.6-6.2); White Blood Count 9.2 K/mm3 (4.4-11.0)
[2021-09-23 18:51] LABS: Vitamin D,25 Hydroxy 34.2 ng/mL
[2021-09-23 19:07] LABS: ALB/GLOB Ratio 0.7 RATIO (0.9-2.4); AST(SGOT) 19 U/L (15-37); Alanine Aminotransfer ALT/SGPT 41 U/L (16-61); Albumin, Serum 3.4 g/dL (3.2-5.0); Alkaline Phosphatase 80 U/L (45-117); Anion Gap 8 (5-15); BUN 32 mg/dL (7-18); BUN/Creat Ratio 27.4 RATIO (10-20); Calcium,Total 9.7 mg/dL (8.5-10.1); Chloride 105 mmol/L (98-107); Creatinine, Serum 1.17 mg/dL (0.70-1.30); EST Glomerular Filtration Rate 66 mL/min (>60); Est Glom Filt Rate - Afr Amer 80 mL/min (>60); Globulin 4.6 g/dL (2.2-4.2); Glucose 156 mg/dL (74-106); Potassium 4.6 mmol/L (3.5-5.1); Sodium Level 137 mmol/L (136-145); Thyroid Stim Hormone (TSH) 1.08 uIU/mL (0.358-3.74)
== END ==
PROVIDERS: PCP Family Medicine Geriatric Medicine; Visit Provider Family Medicine Geriatric Medicine
DX: E11.9 Type 2 diabetes mellitus without complications (principal); E55.9 Vitamin D deficiency, unspecified; I10 Essential (primary) hypertension
CPT/HCPCS: 36415; 80053; 82306; 84443; 85025

== ENCOUNTER 2021-10-02 14:51 | Emergency (ER) | payer MEDICARE, OTHER, SELFPAY ==
[2021-10-02 14:52] VITALS: BP 147/76; PULSE 100; RESP 12; TEMP 36.9; O2SAT 95; BMI 29.5
--- NOTE | 2021-10-02 15:02 | EKG12_ITS ---
Test Reason : CP Blood Pressure : / mmHG Vent. Rate : 101 BPM Atrial Rate : 101 BPM P-R Int : 166 ms QRS Dur : 084 ms QT Int : 338 ms P-R-T Axes : 055 015 031 degrees QTc Int : 438 ms Sinus tachycardia Low voltage QRS Borderline ECG Confirmed by DRU CHAVEZ MD ([id number]), primer expeditor and drier BAN JOVEL ([id number]) on 10/08/2021 9:26:14 AM Referred By: NATE Confirmed By:DRU CHAVEZ MD
--- NOTE | 2021-10-02 15:09 | EKG12_ITS ---
Test Reason : CP Blood Pressure : / mmHG Vent. Rate : 094 BPM Atrial Rate : 094 BPM P-R Int : 162 ms QRS Dur : 090 ms QT Int : 346 ms P-R-T Axes : 050 009 024 degrees QTc Int : 432 ms Normal sinus rhythm Normal ECG Confirmed by DRU CHAVEZ MD ([id number]), communications editor BAN JOVEL ([id number]) on 10/08/2021 9:24:37 AM Referred By: NATE Confirmed By:DRU CHAVEZ MD
--- NOTE | 2021-10-02 15:09 | ED.VIS.CHEST ---
HPI History of Present Illness Chief Complaint: Chest Pain Informant: patient Onset/Context/Timing Onset: Hours (3) Activity at onset: sudden Timing: Continuous Quality: Positive for Pressure Location: Left Parasternal Worsened By: Nothing Relieved By: Nothing Associated Symptoms: Positive for Lightheadedness and Palpitations; Negative for Nausea, Vomiting, Diaphoresis, Dyspnea, Cough, Fever and Acid Reflux Narrative Narrative: Patient presents with chest pain that began today. Patient states it began approximately 3 hours prior to arrival. Patient states it is a pressure type sensation. Patient states it is over the left parasternal area. Patient states nothing makes it better nothing makes it worse. Patient states he gets lightheaded whenever he bends forward. Patient also states he feels like his heart is racing at times. Patient denies any nausea or vomiting. Patient denies any diuresis or fevers. Patient denies any shortness of breath or cough. CVD Risk Factors: Positive for Hypertension, Diabetes and Hypercholesterolemia; Negative for Family History 1' </=55 and Smoking PE Risk Factors: Negative for Recent Travel/Surgery, Recent Immobilization, Prior DVT or PE, Cancer and OCP + Smoking + >/=35 [facility] Medical History Appendicitis Back pain Chest pain Constipated Diabetes Dizziness High cholesterol History of diverticulitis History of steroid therapy History of stress test HTN (hypertension) Ileus Kidney stones Leg cramps Leg cramps Non-smoker radial shortening Wears glasses Home Medications glimepiride 2 mg PO BID 11/28/16 [History Last Taken 11/28/16 08:00] lisinopril 20 mg PO DAILY 11/28/16 [History Last Taken 09/02/21] metformin 1,000 mg PO BIDCM 11/28/16 [History Last Taken 11/28/16 08:00] simvastatin 40 mg PO QHS 11/28/16 [History Last Taken 11/27/16] aspirin 325 mg tablet 325 mg PO QDAY 11/18/17 [History Last Taken Unknown] cholecalciferol (vitamin D3) [Vitamin D3] 25 mcg PO DAILY 08/13/21 [History Last Taken Unknown] multivitamin 1 tab PO DAILY 08/13/21 [History Last Taken Unknown] pioglitazone 30 mg PO DAILY 08/13/21 [History Last Taken Unknown] bisacodyl 5 mg tablet,delayed release 5 mg PO ONCE #8 tab 08/28/21 [Rx Last Taken Unknown] polyethylene glycol 3350 17 gram/dose oral powder 17 g PO DAILY #238 g 08/28/21 [Rx Last Taken Unknown] linaclotide 72 mcg capsule 72 mcg PO DAILY #30 cap 09/02/21 [Rx Last Taken Unknown] lactulose 20 gram/30 mL oral solution 20 g PO BID #1200 ml 09/18/21 [Rx Last Taken Unknown] magnesium oxide 400 mg (241.3 mg magnesium) tablet 400 mg PO DAILY #14 tab 09/18/21 [Rx Last Taken Unknown] mesalamine 1.2 gram tablet,delayed release 2.4 g PO DAILY 56 Days #112 tab 09/20/21 [Rx Last Taken Unknown] Allergy/AdvReac Type Severity Reaction Status Date / Time amoxicillin Allergy Swelling Verified 10/02/21 14:54 nitroglycerin Allergy SEVERE Verified 10/02/21 14:54 HYPOTENSION hydrocodone [From Vicodin] AdvReac Other Verified 10/02/21 14:54 Surgical History H/O arthroscopic knee surgery H/O hernia repair History of carpal tunnel surgery History of knee replacement Hx of appendectomy Social History Smoking Status: Never smoker alcohol intake: never ROS ROS ED Constitutional Constitutional ED: Denies chills or fever(s) Eyes Eyes: Denies blurry vision or change in vision ENT ENT ED: Denies rhinorrhea or sore throat Cardiovascular Cardiovascular: Reports chest pain and palpitations Respiratory/Chest Respiratory/Chest: Denies cough or dyspnea Gastrointestinal Gastrointestinal: Reports abdominal pain and diarrhea; Denies nausea or vomiting Genitourinary Genitourinary ED: Denies dysuria or hematuria Musculoskeletal Musculoskeletal: Denies back pain or neck pain Integumentary Denies abscess or rash Neurologic Neurologic: Denies headache(s) or weakness Allergic/Immunologic Allergic/Immunologic ED: Denies mouth swelling or urticaria EXAM Physical Exam Const Vital Signs: 10/02/21 14:52 10/02/21 14:55 10/02/21 15:12 Temperature 98.5 F Temperature Source Oral Pulse Rate 100 Respiratory Rate 12 Respiratory Effort Normal Non-Labored Blood Pressure 147/76 H Blood Pressure Mean 99 Pulse Ox 95 96 Oxygen Delivery Method Room Air Room Air 10/02/21 15:51 10/02/21 17:11 10/02/21 18:00 Temperature Temperature Source Pulse Rate 91 88 92 Respiratory Rate 15 18 18 Respiratory Effort Blood Pressure 127/74 H 127/74 H 124/68 H Blood Pressure Mean 91 91 86 Pulse Ox 97 97 98 Oxygen Delivery Method Room Air Room Air Room Air Positive well nourished and well developed General Appearance ED: well developed HEENT normocephalic and atraumatic Eyes PERRL and EOMs intact bilaterally Neck supple and no JVD Chest Wall palpation of chest normal Resp normal respiratory effort and clear to auscultation bilaterally Effort and Inspection: Negative for respiratory distress Cardio regular rate, regular rhythm and no murmurs GI normal to inspection, nondistended, normoactive bowel sounds, soft to palpation, non-tender and non-distended Extremity normal to inspection General Extremety ED: Negative for edema or tenderness General Extremity: Negative for edema Neuro oriented x3, CN's II-XII intact bilaterally and no sensory deficits noted Sensorium / Orientation: awake and alert Motor Exam: strength 5/5 throughout Psych mental status grossly normal Heart Score History: Slightly/Non-Suspicious ECG: Normal Age: >/= 65 years Risk Factors: >/= 3 Risk Factors or History of CAD Troponin: </= Normal Limit Score: 4 MDM MDM MDM Narrative Medical decision making narrative: Patient took aspirin at home. Patient is unable to take nitroglycerin. EKG was obtained. On my interpretation, it showed a normal sinus rhythm with a rate of 101. GA interval, QRS interval, and QTc intervals were all normal. Frederic was normal. There are no acute ST or T wave changes. CBC and basic metabolic profile were obtained and were essentially within normal limits. Creatinine was slightly elevated at 1.35. Initial high-sensitivity troponin was normal at 4. Patient had a episode where his chest pain increased. Because of this, repeat EKG was obtained. On my interpretation, there is a normal sinus rhythm with a rate of 94. There are no acute ST or T wave changes. This is unchanged compared to previous EKG. Portable chest x-ray was obtained. There is 1 view. On my interpretation, there is a questionable infiltrate in the lingular segment of the left upper lobe. There is no cardiomegaly. Bony thorax is normal. Radiologist also interpreted the x-ray and agrees. CTA of the chest was obtained. There is no evidence of pulmonary embolism. There is no acute cardiopulmonary process. This was interpreted by the radiologist and reviewed by myself. COVID-19 rapid antigen was obtained and was negative. Patient was still having some pain on reevaluation. Because of this, a delta troponin was obtained and was normal. Patient was given a GI cocktail. Patient states this improved his pain. Patient was instructed to follow-up with his primary care physician in 5 to 7 days. Patient understands and is agreeable with the plan. All questions were answered. Lab Data Attestation: I reviewed the patient's lab results. Labs: Laboratory Results - last 24 hr 10/02/21 10/02/21 10/02/21 15:03 15:03 18:05 WBC 9.0 RBC 4.49 L Hgb 14.2 Hct 41.9 MCV 93.3 MCH 31.6 MCHC 33.9 RDW Std Deviation 44.9 H RDW Coeff of Claudette 13.2 Plt Count 387 MPV 8.9 Immature Gran % (Auto) 0.300 Neut % (Auto) 76.1 H Lymph % (Auto) 12.9 L [place] % (Auto) 9.2 Eos % (Auto) 1.2 Baso % (Auto) 0.3 Absolute Neuts (auto) 6.9 Absolute Lymphs (auto) 1.16 Nucleated RBC % 0 Sodium 137 Potassium 4.3 Chloride 100 Carbon Dioxide 26.0 Anion Gap 11 BUN 34 H Creatinine 1.35 H Estim Creat Clear Calc 52.37 Est GFR (MDRD) Af Amer 67 Est GFR (MDRD) Non-Af 56 L BUN/Creatinine Ratio 25.2 H Glucose 223 H Calcium 9.3 Troponin I High Sens 4 7 Radiography Chest X-Ray - ED: 1 View, Read by ED Physician and Read by Radiologist Diagnostic Testing: Clinical Impression(s) from Imaging Studies Chest X-Ray 10/02/21 15:15 IMPRESSION: Mild increased markings are seen in the lingular segment of the left upper lobe. Electronically Signed: Angel Torres MD at 15:36 EST , Service support , Chest CTA 10/02/21 16:26 IMPRESSION: No demonstrated PE, or thoracic aortic aneurysm or dissection No acute pulmonary process No suspicious adenopathy Degenerative bony changes Electronically Signed: Nolberto Recinos MD at 17:12 EST , Service support , EKG Initial EKG: Attestation: I personally reviewed and interpreted this EKG as follows: Interpretation: No Acute Injury Pattern and Sinus Tachycardia (101) Follow-up EKG: Interpretation: Sinus Rhythm (94) and No Acute Injury Pattern Prior: Unchanged Discharge Plan Triage Chief Complaint: Chest Pain ED Provider: Adam Chen Dx/Rx/DC Orders Clinical Impression: Chest pain Instructions: ED Chest Pain, Uncertain Cause Prescriptions: No Action aspirin 325 mg tablet 325 mg PO QDAY RF: 0 magnesium oxide 400 mg (241.3 mg magnesium) tablet 400 mg PO DAILY Qty: 14 RF: 0 lactulose 20 gram/30 mL solution 20 g PO BID Qty: 1200 RF: 0 lisinopril 20 MG tablet 20 mg PO DAILY RF: 0 metformin 1,000 MG tablet 1,000 mg PO BIDCM RF: 0 glimepiride 4 MG tablet 2 mg PO BID RF: 0 simvastatin 40 MG tablet 40 mg PO QHS RF: 0 multivitamin Tablet 1 tab PO DAILY RF: 0 pioglitazone 30 mg tablet 30 mg PO DAILY RF: 0 cholecalciferol (vitamin D3) [Vitamin D3] 25 mcg (1,000 unit) Tablet 25 mcg PO DAILY RF: 0 bisacodyl 5 mg tablet,delayed release (DR/EC) 5 mg PO ONCE Qty: 8 RF: 0 polyethylene glycol 3350 [Miralax] 17 gram/dose powder 17 g PO DAILY Qty: 238 RF: 0 Linzess 72 mcg capsule 72 mcg PO DAILY Qty: 30 RF: 2 mesalamine 1.2 gram tablet,delayed release (DR/EC) 2.4 g PO DAILY 56 Days Qty: 112 RF: 0 Primary Care Provider: Adam Alex Chi Referrals: Adam Alex Chi, MD [Primary Care Provider] - 3-5 Days Disposition Disposition: Home, Self Care
[2021-10-02 15:12] VITALS: O2SAT 96
--- NOTE | 2021-10-02 15:15 | RAD_ITS ---
STUDY: X-RAY CHEST REASON FOR EXAM: Male, 70 years old. Chest pain TECHNIQUE: Single AP portable view of the chest. COMPARISON: Comparison is made with prior study dated 11/28/2016. FINDINGS: EKG electrodes are seen. Mild increased markings in the lingular segment of the left upper lobe. There is no demonstrated pleural abnormality. Normal size heart. Normal mediastinum and [place]. Normal visualized pulmonary arteries. Normal visualized aortic arch and descending thoracic aorta. There are diffuse degenerative changes of the visualized thoracic spine. Normal visualized ribs, clavicles, and shoulders. There is no demonstrated abnormality of the visualized soft tissue structures of the upper abdomen. RAD/Chest 1 View (Portable) IMPRESSION: Mild increased markings are seen in the lingular segment of the left upper lobe. Electronically Signed: Angel Torres MD at 15:36 EST , Service support ,
[2021-10-02 15:22] LABS: Absolute Lymphocyte Count 1.16 X10^3/uL (0.83-4.51); Absolute Neutrophil Count 6.9 X10^3/uL (2.0-7.7); Basophil# 0.03 X10^3/uL; Basophil% 0.3 % (0-1); Eosinophil# 0.11 X10^3/uL; Eosinophils% 1.2 % (0-5); Hematocrit 41.9 % (40-54); Hemoglobin 14.2 g/dL (13.0-16.5); Lymphocyte # 1.16 X10^3/ul (0.83-4.51); Lymphocyte % 12.9 % (19-41); Mean Corp Hgb Conc 33.9 g/dL (32-36); Mean Corpuscular Hgb 31.6 pg (27.0-32.0); Mean Corpuscular Volume 93.3 fL (80-94); Mean Platelet Vol. 8.9 fl (6.2-12.0); Monocyte# 0.83 X10^3/uL; Monocyte% 9.2 % (0-10); NRBC Flagged by Analyzer 0 % (0-5); Neutrophil # 6.85 X10^3/uL (2.7-7.7); Neutrophil % 76.1 % (47-70); Platelet Count 387 K/mm3 (150-450); RBC Distribution Width CV 13.2 % (11.6-14.6); RBC Distribution Width SD 44.9 fl (35.1-43.9); Red Blood Count 4.49 M/mm3 (4.6-6.2)
[2021-10-02 15:36] LABS: Anion Gap 11 (5-15); BUN 34 mg/dL (7-18); BUN/Creat Ratio 25.2 RATIO (10-20); Calcium,Total 9.3 mg/dL (8.5-10.1); Chloride 100 mmol/L (98-107); Creatinine, Serum 1.35 mg/dL (0.70-1.30); EST Glomerular Filtration Rate 56 mL/min (>60); Est Glom Filt Rate - Afr Amer 67 mL/min (>60); Estimated Creatinine Clearance 52.37 ml/min; Glucose 223 mg/dL (74-106); Potassium 4.3 mmol/L (3.5-5.1); Sodium Level 137 mmol/L (136-145); Troponin-I HS 4 pg/mL (3.0-78.0)
[2021-10-02 15:51] VITALS: BP 127/74; PULSE 91; RESP 15; O2SAT 97
--- NOTE | 2021-10-02 16:26 | CT_ITS ---
STUDY: CTA CHEST REASON FOR EXAM: Male, 70 years old. Chest pain and shortness of breath RADIATION DOSAGE (If Supplied By Facility): CTDIvol = ( 10.07 ) mGy, DLP = ( 461.18 ) mGycm TECHNIQUE: The examination was performed with the intravenous administration of IV 100mL [id number]-[id number]. Post-processing of the angiographic images was performed, with multiplanar reformation and 3D reconstruction. Individualized dose optimization techniques were used for this CT. COMPARISON: None. FINDINGS: Normal enhancement of the main pulmonary artery and right and left pulmonary arteries. Normal enhancement of the bilateral peripheral pulmonary arteries. There is no demonstrated pulmonary embolism. Normal thoracic aorta and visualized great vessels. There is no demonstrated aortic dissection. Normal heart and pericardium. Normal mediastinum. Normal hilar regions. Normal visualized trachea and bronchi. The lungs are well expanded. No acute pulmonary process, no suspicious noncalcified mass or nodule, there is dependent atelectasis in both lung bases. Nonspecific pleural thickening in both hemithoraces. Normal chest wall structures. There are degenerative changes of thoracic spine. Normal visualized upper abdomen. CT/CTA Chest W/WO Contrast IMPRESSION: No demonstrated PE, or thoracic aortic aneurysm or dissection No acute pulmonary process No suspicious adenopathy Degenerative bony changes Electronically Signed: Nolberto Recinos MD at 17:12 EST , Service support ,
[2021-10-02] MEDS: 0.9% Normal Saline 1,000 ML 1000 ML IV (16:38)
[2021-10-02 17:11] VITALS: BP 127/74; PULSE 88; RESP 18; O2SAT 97
[2021-10-02 18:00] VITALS: BP 124/68; PULSE 92; RESP 18; O2SAT 98
[2021-10-02] MEDS: Mag Hydrox/Al Hydrox/Simeth 30 ML UDC PO (18:02)
[2021-10-02 18:40] LABS: Troponin-I HS 7 pg/mL (3.0-78.0)
[2021-10-02 19:37] VITALS: BP 119/72; PULSE 89; PULSE 93; RESP 19; RESP 20; O2SAT 95
== END 2021-10-02 20:01 | disposition home or self-care (01) ==
PROVIDERS: Emergency Provider Emergency Medicine; PCP Family Medicine Geriatric Medicine
DX: R07.9 Chest pain, unspecified (principal); I10 Essential (primary) hypertension; E11.9 Type 2 diabetes mellitus without complications; E78.00 Pure hypercholesterolemia, unspecified; Z79.84 Long term (current) use of oral hypoglycemic drugs; Z79.82 Long term (current) use of aspirin; Z82.49 Family history of ischemic heart disease and other diseases of the circulatory system
CPT/HCPCS: 71045; 71275; 80048; 84484; 85025; 87426; 93005; 99285; J7030; Q9967; A4216

== ENCOUNTER 2022-01-02 16:42 | Outpatient (CLI) | payer MEDICARE, OTHER, SELFPAY ==
[2022-01-02 17:25] LABS: Absolute Lymphocyte Count 2.23 X10^3/uL (0.83-4.51); Absolute Neutrophil Count 4.3 X10^3/uL (2.0-7.7); Basophil# 0.03 X10^3/uL; Basophil% 0.4 % (0-1); Eosinophil# 0.13 X10^3/uL; Eosinophils% 1.8 % (0-5); Hemoglobin 13.7 g/dL (13.0-16.5); Lymphocyte # 2.23 X10^3/ul (0.83-4.51); Lymphocyte % 30.5 % (19-41); Mean Corp Hgb Conc 34.3 g/dL (32-36); Mean Corpuscular Volume 93.5 fL (80-94); Mean Platelet Vol. 9.3 fl (6.2-12.0); Monocyte# 0.61 X10^3/uL; Monocyte% 8.4 % (0-10); NRBC Flagged by Analyzer 0 % (0-5); Neutrophil # 4.28 X10^3/uL (2.7-7.7); Neutrophil % 58.6 % (47-70); Platelet Count 330 K/mm3 (150-450); RBC Distribution Width CV 12.4 % (11.6-14.6); RBC Distribution Width SD 42.8 fl (35.1-43.9); Red Blood Count 4.28 M/mm3 (4.6-6.2); White Blood Count 7.3 K/mm3 (4.4-11.0)
[2022-01-02 17:36] LABS: International Normalized Ratio 1.1; Partial Thromboplast Time 27.1 Seconds (24.1-36.2); Prothrombin Time (Protime)PT. 13.1 SECONDS (11.7-14.9)
[2022-01-02 18:12] LABS: Anion Gap 6 (5-15); BUN 32 mg/dL (7-18); BUN/Creat Ratio 27.6 RATIO (10-20); Calcium,Total 9.3 mg/dL (8.5-10.1); Chloride 105 mmol/L (98-107); Creatinine, Serum 1.16 mg/dL (0.70-1.30); EST Glomerular Filtration Rate 66 mL/min (>60); Est Glom Filt Rate - Afr Amer 80 mL/min (>60); Glucose 185 mg/dL (74-106); Potassium 4.3 mmol/L (3.5-5.1); Sodium Level 137 mmol/L (136-145)
== END 2022-01-02 23:59 | disposition home or self-care (01) ==
LOC: LAB 16:43
PROVIDERS: PCP Family Medicine Geriatric Medicine; Referring Provider Internal Medicine Cardiovascular Disease; Visit Provider Internal Medicine Cardiovascular Disease
DX: R07.9 Chest pain, unspecified (principal); I20.9 Angina pectoris, unspecified; I10 Essential (primary) hypertension; E78.2 Mixed hyperlipidemia; R00.2 Palpitations; R42 Dizziness and giddiness
CPT/HCPCS: 36415; 80048; 85025; 85610; 85730

== ENCOUNTER 2022-01-10 07:58 | Outpatient (CLI) | payer MEDICARE, OTHER, SELFPAY | END 2022-01-10 23:59 | disposition home or self-care (01) | LOC: PSN 08:00 | PROVIDERS: PCP Family Medicine Geriatric Medicine; Referring Provider Internal Medicine Cardiovascular Disease; Visit Provider Internal Medicine Cardiovascular Disease | DX: E78.2 Mixed hyperlipidemia (principal); I20.9 Angina pectoris, unspecified; R00.2 Palpitations; R42 Dizziness and giddiness; R07.9 Chest pain, unspecified | CPT/HCPCS: 93225; 93226 ==

== ENCOUNTER 2022-01-16 06:42 | Day surgery (SDC) | payer MEDICARE, OTHER, SELFPAY ==
--- NOTE | 2022-01-11 10:30 | PCM.HP.BLA ---
History and Physical Date of Admission: 01/16/22 [facility] [address] [facility] [address] [facility] [place] [address] [phone] OFFICE VISITDate of Service: 01/02/22 MR#:[id number]: JOSE HATHAWAYRep #:[id number] Provider:Dr. Sarmad Muñoz MDAge/Sex: 71/M Location:[facility] [place]:Signed HPI HPI History of Present Illness Surgical H&P: Yes Details: This is a 71-year-old white male who presents today for outpatient cardiovascular consultation based upon concerns of exertional chest discomfort concerning for stable exertional angina pectoris as well as palpitations. He states that he does have episodes which are becoming more and more prominent with exertion where he describes a chest discomfort/pressure sensation, as he holds a clenched fist over his sternal area, that is relieved with rest. He states he did have one episode where he became nauseated and diaphoretic. He notes his , a nurse, has told him that when this happens he has to sit and rest. When he is resting his symptoms dissipate. He does not appear to have this at rest. He has had no nocturnal symptoms. He denies orthopnea or PND or peripheral pitting edema. There has been no loss of consciousness. He states he does have episodes of palpitations and at times has felt dizzy. He has been undergoing noninvasive cardiac evaluation as well as being evaluated by gastroenterology. From a cardiac standpoint he had an ECG on 10-02-2021 at [facility]. He was noted to be in sinus rhythm with no acute changes. This was repeated today and he did have sinus rhythm with no acute ECG changes. He also had an exercise tolerance test/stress nuclear imaging study performed on 08-15-2021. At that time he exercised for 5 minutes and 59 seconds achieving 98% predicted maximal heart rate. There was a comment that he had upsloping ST segment depression in the inferior and lateral leads. He had 2 out of 10 chest discomfort at peak exercise which resolved in recovery. His myocardial perfusion study suggested no evidence of significant ischemia or infarction. He states he is also scheduled for an upper GI/endoscopy procedure in February of this year. It appears that through his PCP group he had lipid labs performed on 09-23-2021. At that time his total cholesterol was 162 with an LDL of 66 and an HDL of 48. His triglycerides were 235. Intake Vital Signs 01/02/22 11:37 Height 5 ft 9 in Weight: 200 lb 7 oz BMI 29.5 BP 120/62 Blood Pressure Location Lt brachial Position Sitting Respiration 18 Pulse 82 Pulse Source Auscultation Intake Visit Reasons: CP/REF. DR. FRIEND Data Sme Required: No Accompanied by: Self Allergies amoxicillin Allergy (Verified 01/02/22 11:37) Swelling nitroglycerin Allergy (Verified 01/02/22 11:37) SEVERE HYPOTENSION hydrocodone [From Vicodin] Adverse Reaction (Verified 01/02/22 11:37) Other Medications glimepiride 2 mg PO BID 11/28/16 [History Confirmed 01/02/22] lisinopril 20 mg PO DAILY 11/28/16 [History Confirmed 01/02/22] metformin 1,000 mg PO BIDCM 11/28/16 [History Confirmed 01/02/22] simvastatin 40 mg PO QHS 11/28/16 [History Confirmed 01/02/22] aspirin 325 mg tablet 325 mg PO QDAY 11/18/17 [History Confirmed 01/02/22] cholecalciferol (vitamin D3) [Vitamin D3] 25 mcg PO DAILY 08/13/21 [History Confirmed 01/02/22] multivitamin 1 tab PO DAILY 08/13/21 [History Confirmed 01/02/22] pioglitazone 30 mg PO DAILY 08/13/21 [History Confirmed 01/02/22] metoprolol tartrate 25 mg tablet 25 mg PO BID #60 tab 01/02/22 [Rx Confirmed 01/02/22] ranolazine 500 mg tablet,extended release,12 hr 500 mg PO BID #60 tab 01/02/22 [Rx Confirmed 01/02/22] [facility] Medical History (Updated 01/02/22 @ 12:[address] Sarmad Muñoz MD) Angina pectoris Appendicitis Back pain BPH (benign prostatic hyperplasia) Chest pain Constipated Diabetes Dizziness Essential hypertension GERD (gastroesophageal reflux disease) History of diverticulitis History of steroid therapy History of stress test Ileus Kidney stones Leg cramps Leg cramps Mixed hyperlipidemia Non-smoker radial shortening Type 2 diabetes mellitus Wears glasses Surgical History H/O arthroscopic knee surgery H/O hernia repair History of carpal tunnel surgery History of knee replacement History of transurethral resection of prostate Hx of appendectomy Family History Grandfather Heart disease Grandfather Heart disease Grandmother Heart disease Social History Smoking Status: Never smoker alcohol intake: never substance use type: does not use caffeine: Yes Type: carbonated beverages ROS Const Const: Positive for fatigue (no stamina); Negative for weakness, frequent falls, excessive sweating, weight gain or weight loss Eyes Eyes: Negative for transient loss of vision, blurry vision or change in vision ENT ENT: Negative for dizziness or balance problems Cardio Chest Pain: Yes Character: squeezing and other (pressure) Onset: exercise Location: mid sternal Relieving: rest Palpitations: Yes (mostly at night) feels like its: pounding Edema: None Muscle aches with walking: None Resp Respiratory: Positive for SOB with activity (new over the last few months), Cough (dry) and wheezing (occasional last month); Negative for SOB at rest GI GI: Negative vomiting or vomiting blood/hematemesis : Negative for hematuria Musc Musc: Positive for joint pain (bilat shoulders); Negative for muscle aches/ myalgia, muscle weakness or balance problems Skin Skin: Negative non-healing lesions or rash Neuro Neuro: Positive for lightheadedness (bending over); Negative for dizziness, orthostatic symptoms, frequent falls, weakness or blurry vision Colby Hematologic/Lymphatic: Negative for easy bleeding Endo Endo: Positive for fatigue (no stamina); Negative for excessive sweating Psych Psych: Negative for anxiety or depression Allergy Allergy/Immunology: Negative for hives and Negative for rash Cardiology Exam Const Appearance: cooperative, healthy appearing, comfortable, no acute distress, well developed and well groomed Nutritional Appearance: overweight Orientation: alert, awake and oriented x3 Head Head: normal to inspection, normocephalic and atraumatic Ears: hearing grossly normal bilaterally Nose: external nose normal Face and Sinus: face symmetric Eyes Eyelids: eyelids normal Conjunctivae: conjunctivae normal Pupils: PERRL EOM: EOM intact bilaterally Neck Neck: normal visual inspection and full ROM Carotids: normal carotid upstroke Chest Chest inspection: normal inspection of the chest, symmetric chest movement and normal respiratory effort Auscultation: Bilateral: Clear to Auscultation Cardio Palpation: normal PMI Rate: regular rate Rhythm: regular rhythm Heart sounds: S1 normal and S2 normal GI GI: normal to inspection, soft and bowel sounds present Neuro General: patient alert, patient awake, patient oriented x3 and moves all extremities Skin Skin: no rashes or lesions noted Extremities Pulses: Normal: Right Radial Pulse and Left Radial Pulse Supplemental Info Supplemental Information Stress Test Report Date: 08/15/2021 Procedure: Exercise tolerance test/imaging study Indications: Chest pain Consent: Per the patient Procedure: The patient exercised on a Tobin protocol for 5 minutes and 59 seconds achieving a peak heart rate of 150 bpm (98% predicted maximal heart rate) with a peak blood pressure 168/90 mmHg and a peak MET capacity of 7 METs. The baseline ECG demonstrated normal sinus rhythm, possible prior anteroseptal UT. The peak exercise ECG demonstrated sinus tachycardia with upsloping ST depressions in the inferior and lateral leads. EKG during recovery revealed return of ST segments to baseline [There were no cardiac dysrhythmias pretest, during exercise, or recovery]. The functional capacity was considered average for age. Patient had 2/10 chest pressure at peak exercise which resolved during recovery. The examination was discontinued secondary to achieving target heart rate. Impression: 1. Technically adequate (percent predicted maximal heart rate greater than 85%) exercise tolerance test 2. Stress test is negative for exercise-induced EKG changes of ischemia 3. The test test is positive for exercise-induced chest pain 4. Functional capacity is average for age 5. Nuclear images pending Myocardial perfusion imaging study: Technique: The patient was injected with 12 mCi of technetium 99m Cardiolite and subsequently rest SPECT Cardiolite nuclear imaging was obtained in the horizontal long, vertical long, and short axis views. The patient exercised on a Tobin protocol. Please see above for details. The patient was injected with 34.1 mCi of technetium 99m Cardiolite and subsequently stress SPECT Cardiolite nuclear imaging was obtained in the horizontal long, vertical long, and short axis views. A gated Cardiolite study at peak stress was obtained. Interpretation: Rest and stress SPECT Cardiolite nuclear imaging status post realignment, normalization, and attenuation correction, demonstrates overall normal myocardial radioisotope uptake. The gated Cardiolite study demonstrates no significant regional wall motion abnormalities. The reported LVEF is 67%. Impression: 1. There is no evidence of significant ischemia or infarction. 2. The gated Cardiolite study reports an LVEF of 67%. Labs: LDL Cholesterol 48 mg/dL (0-130) HDL Cholesterol 51 mg/dL (40-) Triglycerides 138 mg/dL (-199) VLDL Cholesterol 28 mg/dL (5-40) Diagnostics: Electrocardiogram Stress Test NM Stress Test Chest X-Ray Pulmonary: No Data to Display Assessment and Plan Assessment and Plan (1) Angina pectoris: Status: Acute Orders: Orders: Left Heart Cath/COR/LV Percut Today Basic Metabolic Profile (BMP) Today Partial Thromboplast Time Today Prothrombin Time w/INR Today Cardiac Holter Monitor, 24 Hrs Today Echo Complete Today CBC W/Diff, Automated Today Plan - Dr. Sarmad Muñoz MD: The patient describes symptoms concerning for stable exertional angina pectoris. However he states it is progressing over time which is concerning for worsening angina pectoris. At the present time he is going to continue medical therapy. This will include increasing his beta-george dose. Also an attempt would be made to add a nitrate to his regimen, however, he states that he did receive nitroglycerin sublingual once in the past in the emergency department and he had significant hypotension and went out . Thus as an alternative he will be placed on additional antianginal therapy with ranolazine/Ranexa at 500 mg p.o. twice daily taking into consideration that he is not on simvastatin/Zocor greater than 40 mg a day. This may, or may not depending upon his future findings, be temporary and/or warrant a future change in his statin therapy. He will also be asked to have further evaluation of his left ventricular wall motion and systolic function with a transthoracic echocardiogram. Based upon his ongoing issues it was felt reasonable that he be considered for further definitive evaluation with diagnostic cardiac catheterization. The procedure and risk were discussed with him. He was agreeable to this approach. (2) Palpitations: Status: Acute Orders: Orders: Left Heart Cath/COR/LV Percut Today Basic Metabolic Profile (BMP) Today Partial Thromboplast Time Today Prothrombin Time w/INR Today Cardiac Holter Monitor, 24 Hrs Today Echo Complete Today CBC W/Diff, Automated Today Plan - Dr. Sarmad Muñoz MD: He does have palpitations. He states he feels better on his beta-blockers. He will undergo a 24-hour Holter monitor to evaluate his average rate and rhythm. He will have an echocardiogram to evaluate his left ventricular wall motion and systolic function which would be important to know with respect any underlying cardiac ectopy, etc. (3) Dizziness: Status: Acute Orders: Orders: Left Heart Cath/COR/LV Percut Today Basic Metabolic Profile (BMP) Today Partial Thromboplast Time Today Prothrombin Time w/INR Today Cardiac Holter Monitor, 24 Hrs Today Echo Complete Today CBC W/Diff, Automated Today Plan - Dr. Sarmad Muñoz MD: His dizziness that he states he has had in the past is unclear whether it is truly related to a cardiovascular condition or not. He will proceed with his noninvasive and invasive valuation as noted. (4) Mixed hyperlipidemia: Status: Acute Orders: Orders: 12 Lead EKG performed by BMS Today Left Heart Cath/COR/LV Percut Today Basic Metabolic Profile (BMP) Today Partial Thromboplast Time Today Prothrombin Time w/INR Today Cardiac Holter Monitor, 24 Hrs Today Echo Complete Today CBC W/Diff, Automated Today Plan - Dr. Sarmad Muñoz MD: His lipid labs were reviewed. He will continue medical therapy. Again if he does need to stay on agents such as Ranexa for any prolonged period of time then he may need to be considered to be changed from simvastatin/Zocor to an alternative statin to avoid any potential concerning interactions. (5) Essential hypertension: Status: Acute Orders: Orders: 12 Lead EKG performed by BMS Today Left Heart Cath/COR/LV Percut Today Basic Metabolic Profile (BMP) Today Partial Thromboplast Time Today Prothrombin Time w/INR Today Cardiac Holter Monitor, 24 Hrs Today Echo Complete Today CBC W/Diff, Automated Today Plan - Dr. Sarmad Muñoz MD: His blood pressure appears to be reasonably well controlled. He will continue medical therapy. Plan Details Other Medications: New: ranolazine ER (Ranexa) 500 mg PO BID 60 tabs 3RF Changed: From: metoprolol tartrate 12.5 mg PO BID To: metoprolol tartrate 25 mg PO BID 60 tabs 3RF Other Orders: Orders: 12 Lead EKG performed by BMS Today R07.9 Left Heart Cath/COR/LV Percut Today R07.9 Basic Metabolic Profile (BMP) Today R07.9 Partial Thromboplast Time Today R07.9 Prothrombin Time w/INR Today R07.9 Cardiac Holter Monitor, 24 Hrs Today R07.9 Echo Complete Today R07.9 CBC W/Diff, Automated Today J40, R07.9 Additional Comments: Thank you for allowing me to participate in the care of your patient. Please don't hesitate to call if any issues arise. This note was generated using a voice recognition system and there may be incorrect words, spelling or punctuation that were not noted when reviewing the office note prior to saving. Follow Up: 3 Months (PFM ) COVID (Procedure Consent) Procedure Criteria Procedure Criteria: Yes Elective The surgeon/proceduralist and patient have discussed in detail the risk of exposure to and/or potential harm posed by the COVID-19 virus with having a surgery/procedure at this time versus the risk of delaying the surgery/procedure. It is not possible to know either the risk of delaying the surgery or procedure or chance of getting an infection with perfect accuracy, but a joint decision was made between the patient and the surgeon/proceduralist to proceed at this time with the scheduled surgery/procedure as indicated on the consent form. Coding Level of Care Code Off vis,new,level 5 Diagnoses Angina pectoris I20.9 Palpitations R00.2 Dizziness R42 Mixed hyperlipidemia E78.2 Essential hypertension I10 Coding Level of Care Code Off vis,new,level 5 Diagnoses Angina pectoris I20.9 Palpitations R00.2 Dizziness R42 Mixed hyperlipidemia E78.2 Essential hypertension I10 01/02/22 1234<Electronically signed by Sarmad Muñoz MD>Date Sarmad Muñoz MD Cosigner Signature:Date (if applicable) CC: Dr. Adam Alex MD; Robert Friend, DO ~ Assessment & Plan Addt'l Comments I have re-examined the patient. There are no clinical changes since date of exam
[2022-01-15 08:16] VITALS: BMI 29.5
--- NOTE | 2022-01-16 08:49 | CL.D_ITS ---
Patient Name: JOSE HATHAWAY Study Date: 01/16/2022 Performing: Sarmad Muñoz MD Ht: 68.89 inches 175 cm : 1950 Wt: 200.62 lbs 91 kg Age: 71 Gender: male BSA: 2.07 PROCEDURE(S) PERFORMED DC02-([id number])[facility] CLINICAL PROFILE AND INDICATIONS Indications: Worsening Angina, Suspected CAD Heart Failure: None Stress/Imaging Date: 08/15/2022tress Test with SPECT MPI: Indeterminant (abnormal ECG portion / negative myocardial perfusion portion) Angina Classification Anginal Classification w/in 2 Weeks: CCS III CAD Presentations: Other: worsening angina CONCLUSIONS [place] Multivessel CAD (non angiographically significant) RECOMMENDATIONS Risk factor modification Medical therapy DESCRIPTION OF PROCEDURE The patient arrived to the procedure lab. The risks and benefits of the procedure as well as a full d escription of our services here and current unavailability of surgical backup were fully explained to the patient and/or their significant other prior to the catheterization. The Timeout was completed, verifying the correct patient and procedure. The patient's procedural site was prepped and draped in the usual fashion. Local anesthetic was given subcutaneously to right radial region with Lidocaine 2% . Using a modified Seldinger technique, arterial access was obtained via the right radial artery, a 6 Fr sheath was inserted. Left Coronary Artery selective angiography was performed in multiple views u sing a 5 Fr. 4.0 [place] catheter. Right Coronary Artery selective angiography was then performed in mu ltiple views using a 5 Fr. 4.0 [place] catheter.The arterial sheath was pulled while aspirating and a T R Band was applied for hemostasis w/ 10ml air CORONARY ANGIOGRAPHY DOMINANCE: Left Dominant LEFT HEART ASSESSMENT Left Ventricular Ejection Fraction: Not assessed LEFT MAIN: Angiographically normal LEFT ANTERIOR DESCENDING ARTERY: PROX LAD: Mild calcification, Mild luminal irregularities DIAGONAL 1: Proximal - Mild luminal irregularities CIRCUMFLEX ARTERY: PROX CIRC: Mild luminal irregularities MID CIRC: Mild calcification, Mild luminal irregularities RIGHT CORONARY ARTERY: Angiographically normal COMPLICATIONS No Complications PROCEDURE MEDICATIONS Versed 1 mg IV Fentanyl 50 mcg IV Oxygen: 2 L/min via nasal cannula Benadryl 50 mg IV @ 01/16/2022 08:22:24 Heparin given IA 01/16/2022 08:03:40 Verapamil 2.5mg, 3000 units of Heparin given IA 01/16/2022 08:03:40 SUMMARY OF HEMODYNAMIC DATA Time AIR REST ECG 07:00:33 AO 116/58 (83) SA 08:05:39 Signed By Sarmad Muñoz MD On 01/16/2022 08:48:19 Sarmad Muñoz MD
== END 2022-01-16 23:59 | disposition home or self-care (01) ==
LOC: CLSP 06:43
PROVIDERS: PCP Family Medicine Geriatric Medicine; Visit Provider Internal Medicine Cardiovascular Disease
DX: I25.110 Atherosclerotic heart disease of native coronary artery with unstable angina pectoris (principal); R42 Dizziness and giddiness; E78.2 Mixed hyperlipidemia; R00.2 Palpitations; I10 Essential (primary) hypertension
CPT/HCPCS: 93458; 99152; 99153; J7040; C1769; C1894; Q9967

== ENCOUNTER 2022-01-20 13:08 | Outpatient (CLI) | payer MEDICARE, OTHER, SELFPAY ==
[2022-01-20 14:05] LABS: Anion Gap 3 (5-15); BUN 40 mg/dL (7-18); BUN/Creat Ratio 27.4 RATIO (10-20); Calcium,Total 9.6 mg/dL (8.5-10.1); Chloride 103 mmol/L (98-107); Creatinine, Serum 1.46 mg/dL (0.70-1.30); EST Glomerular Filtration Rate 51 mL/min (>60); Est Glom Filt Rate - Afr Amer 62 mL/min (>60); Glucose 140 mg/dL (74-106); Potassium 4.6 mmol/L (3.5-5.1); Sodium Level 136 mmol/L (136-145)
== END 2022-01-20 23:59 | disposition home or self-care (01) ==
LOC: LAB 13:10
PROVIDERS: PCP Family Medicine Geriatric Medicine; Referring Provider Internal Medicine Cardiovascular Disease; Visit Provider Internal Medicine Cardiovascular Disease
DX: R00.2 Palpitations (principal); I20.9 Angina pectoris, unspecified; I10 Essential (primary) hypertension; E78.2 Mixed hyperlipidemia
CPT/HCPCS: 36415; 80048

== ENCOUNTER 2022-01-24 07:43 | Outpatient (CLI) | payer MEDICARE, OTHER, SELFPAY ==
--- NOTE | 2022-01-24 07:52 | ECHOD_ITS ---
Reason For Study: Chest pain Procedure This was a 2D Doppler, Color Flow transthoracic echocardiogram. The exam was of adequate technical quality. Exam performed in department. Left Ventricle Normal LV size. Left ventricular systolic function is normal. The estimated ejection fraction is 55 %. Diastolic function is indeterminate. No regional wall motion abnormalities noted. Right Ventricle Normal RV size. Normal systolic function. Atria Normal left atrium. Normal right atrium. No doppler evidence for ASD. Mitral Valve There is no mitral annular calcification. Normal mitral valve. Trivial mitral valve insufficiency. Tricuspid Valve Normal tricuspid valve. Trivial tricuspid valve insufficiency. Unable to estimate RV systolic pressure due to insufficient tricuspid regurgitant envelope. Aortic Valve Trisinus/trileaflet aortic valve. Normal aortic valve. Trivial eccentric aortic valve insufficiency. Pulmonic Valve The pulmonic valve is not well visualized. Trivial pulmonic valve insufficiency. Great Vessels Normal sized aortic root. Pericardium/Pleural No pericardial effusion. MMode/2D Measurements & Calculations LVIDd: 4.3 cm IVSd: 1.2 cm Ao root diam: 3.0 cm LVIDs: 2.2 cm LVPWd: 0.94 cm RVDd: 3.3 cm FS: 48.5 % LAV(MOD-bp): 41.9 ml LVAd ap4: 27.4 cm2 LVAd ap2: 27.2 cm2 LAV(MOD-bp) Indexed: 20.3 ml/m2 LVLd ap4: 8.5 cm LVLd ap2: 8.4 cm LAV(MOD-sp2): 29.7 ml EDV(MOD-sp4): 74.0 ml EDV(MOD-sp2): 76.1 ml LAV(MOD-sp4): 53.4 ml EDV(sp4-el): 75.4 ml EDV(sp2-el): 75.0 ml LVAs ap4: 16.1 cm2 LVAs ap2: 15.8 cm2 LVLs ap4: 7.7 cm LVLs ap2: 7.5 cm ESV(MOD-sp4): 29.7 ml ESV(MOD-sp2): 28.7 ml ESV(sp4-el): 28.7 ml ESV(sp2-el): 28.3 ml EF(MOD-sp4): 59.9 % EF(MOD-sp2): 62.3 % EF(sp4-el): 62.0 % SV(MOD-sp4): 44.3 ml SV(MOD-sp2): 47.4 ml SV(sp4-el): 46.7 ml LA dimension(2D): 3.9 cm LA A4 area: 19.1 cm2 RA A4 area: 12.9 cm2 Doppler Measurements & Calculations MV E max carlos: 71.8 cm/sec Lat Peak E' Carlos: 8.9 cm/sec Med Peak E' Carlos: 6.3 cm/sec MV A max carlos: 82.0 cm/sec E/E' lat: 8.0 E/E' med: 11.4 MV E/A: 0.88 Ao V2 max: 118.1 cm/sec LV V1 max: 95.8 cm/sec PA V2 max: 82.9 cm/sec Ao max P.6 mmHg LV V1 max P.7 mmHg ECHO/Echo Complete Interpretation Summary Left ventricular systolic function is normal. The estimated ejection fraction is 55 %. Trivial mitral valve insufficiency. Trivial tricuspid valve insufficiency. Trivial eccentric aortic valve insufficiency. Trivial pulmonic valve insufficiency. Unable to estimate RV systolic pressure due to insufficient tricuspid regurgita nt envelope. Diastolic function is indeterminate. Ordering Physician: Sarmad Muñoz Referring Physician: Adam Alex Chi Performed By: Laura Underwood RDCS
== END 2022-01-24 23:59 | disposition home or self-care (01) ==
LOC: CVS 07:45
PROVIDERS: PCP Family Medicine Geriatric Medicine; Referring Provider Internal Medicine Cardiovascular Disease; Visit Provider Internal Medicine Cardiovascular Disease
DX: R07.9 Chest pain, unspecified (principal); I20.9 Angina pectoris, unspecified; I10 Essential (primary) hypertension; E78.2 Mixed hyperlipidemia; R00.2 Palpitations; R42 Dizziness and giddiness
CPT/HCPCS: 93306

== ENCOUNTER → 2022-01-30 | Outpatient (CLI) | payer MEDICARE, OTHER, SELFPAY ==
--- NOTE | 2022-01-30 13:32 | PFT ---
INTRODUCTION: The patient is a 71-year-old male that presents for pulmonary function studies secondary to a diagnosis of shortness of breath. Respiratory therapy reported good patient effort. Bronchodilators were used during testing. INTERPRETATION: Forced expiration spirometry demonstrates no evidence of a large airways obstructive ventilatory defect. There was no significant response to aerosolized bronchodilators. Spirograms are of fair quality and plateau gradually indicating slow emptying of the lungs. Body plethysmography was performed and reveals lung volumes to be within normal limits. Diffusing capacity by single breath CO is also within normal limits. IMPRESSION: Grossly normal pulmonary function studies.
== END | disposition home or self-care (01) ==
LOC: PSN 09:47
PROVIDERS: PCP Family Medicine Geriatric Medicine; Referring Provider Internal Medicine Critical Care Medicine; Visit Provider Internal Medicine Critical Care Medicine
DX: R06.02 Shortness of breath (principal)
CPT/HCPCS: 94060; 94726; 94729

== ENCOUNTER → 2022-02-06 | Outpatient (CLI) | payer MEDICARE, OTHER, SELFPAY ==
[2022-02-06 13:43] VITALS: PULSE 100; PULSE 101; PULSE 82; PULSE 83; PULSE 88; PULSE 92; PULSE 95; O2SAT 94; O2SAT 95; O2SAT 96; O2SAT 97; O2SAT 98
--- NOTE | 2022-02-07 05:44 | PCM.PSN.6M ---
PSN 6 Minute Walk Test 6 Minute Walk Test 6 Minute Walk Test: 6 Minute Walk Test PSN:6-Minute Walk Test Start: 02/06/22 13:42 Freq: Status: Active Protocol: RESP.6MINW Document 02/06/22 13:43 [facility] (Rec: 02/06/22 13:45 [facility] [id number]) 6 Minute Walk Test Date Performed 02/06/22 Time Performed 12:30 Height 5 ft 9 in Weight: 90.718 kg Weight in Pounds 200.[address]: French Buchanan Assistive device used: None Pre-test Oxygen Delivery Method Room Air Pulse Ox (%) 98 Pulse Rate (60-100 beats/min) 82 Dyspnea Milagro Scale (0-10) 1 1st minute Oxygen Delivery Method Room Air Pulse Ox (%) 94 Pulse Rate (60-100 beats/min) 82 Dyspnea Milagro Scale (0-10) 1 Number of Rests Taken 0 2nd minute Oxygen Delivery Method Room Air Pulse Ox (%) 95 Pulse Rate (60-100 beats/min) 88 Dyspnea Milagro Scale (0-10) 2 Number of Rests Taken 0 3rd minute Oxygen Delivery Method Room Air Pulse Ox (%) 97 Pulse Rate (60-100 beats/min) 92 Dyspnea Milagro Scale (0-10) 2 Number of Rests Taken 0 4th minute Oxygen Delivery Method Room Air Pulse Ox (%) 95 Pulse Rate (60-100 beats/min) 95 Dyspnea Milagro Scale (0-10) 2 Number of Rests Taken 0 5th minute Oxygen Delivery Method Room Air Pulse Ox (%) 95 Pulse Rate (60-100 beats/min) 100 Dyspnea Milagro Scale (0-10) 2 Number of Rests Taken 0 6th minute Oxygen Delivery Method Room Air Pulse Ox (%) 96 Pulse Rate (60-100 beats/min) 101 H Dyspnea Milagro Scale (0-10) 3 Number of Rests Taken 0 Reported Symptoms Increased Work of Breathing Post-test Oxygen Delivery Method Room Air Pulse Ox (%) 98 Pulse Rate (60-100 beats/min) 83 Dyspnea Milagro Scale (0-10) 1 Full Laps Walked 24 Partial Lap, Number of Tiles Walked 7 Total Distance Walked (ft) 1423 Interpretation Interpretation: The patient was able to ambulate 1423 feet over the course of 6 minutes on room air with no assistive devices or breaks. There was no significant desaturation or tachycardia during testing. These findings are consistent with a normal walking oximetry. Recommendations Recommendations: No supplemental oxygen significant with this time.
== END | disposition home or self-care (01) ==
LOC: PSN 12:25
PROVIDERS: PCP Family Medicine Geriatric Medicine; Referring Provider Internal Medicine Critical Care Medicine; Visit Provider Internal Medicine Critical Care Medicine
DX: R06.02 Shortness of breath (principal)
CPT/HCPCS: 94618

== ENCOUNTER 2022-02-26 06:14 | Day surgery (SDC) | payer MEDICARE, OTHER, SELFPAY ==
--- NOTE | 2022-02-26 | GASB_PTH ---
PATIENT: JOSE HATHAWAY LOC: EN U#:[id number] AGE/SX: 71/M ROOM: RE02/26/[address]: Dr. Robert Flores DO : 1950 BED: DIS: 02/26/2022 SPEC #: [id number] RECD: 02/26/22 12:58 STATUS: EVERARDO SCOTT #: [id number] LORRAINE: 02/26/22 00:[address]: Robert Flores DEPT: SURGICAL PATHOLOGY RECD BY: José Miguel Gill ENTERED: 02/26/22 12:58 SP TYPE: Gastric Bx OTHR DR: Dr. Adam Alex MD Tissues: A - Gastric mucous membrane B - Duodenum, NOS C - Esophageal mucous membrane Procedures: Special Stain Group II Surgery Specimen Level IV Alcian Blue/PAS (control) HEADER OPERATION: [place] ([facility] [place] with biopsies and dilatation PRE-OP DIAGNOSIS: Constipated, segmental colitis associated with diverticulosis, dysphagia TISSUE SUBMITTED: A ? Gastric body biopsy, B ? Duodenal biopsy, C ? Distal esophagus biopsy MICROSCOPIC DIAGNOSIS A. Gastric body, biopsy: Minimal chronic inflammation. B. Duodenum, biopsy: No pathologic change. C. Distal esophagus, biopsy: Gastroesophageal junction with mild chronic inflammation. No evidence of goblet cell metaplasia. See comment. AM:misael 02/27/2022 COMMENT A. The results of immunohistochemistry for Helicobacter pylori will be reported separately ([id number]). C. Alcian blue/PAS stain with matched control supports the above diagnosis. MICROSCOPIC DESCRIPTION Slides are reviewed. GROSS DESCRIPTION A - Received in fixative is one container labeled with the patient's name and designated gastric body biopsy. The specimen consists of multiple irregular fragments of light pitt soft tissue that in aggregate measure 0.8 x 0.5 x 0.1 cm. The specimen is totally submitted in one cassette. B - Received in fixative is one container labeled with the patient's name and designated duodenum biopsy. The specimen consists of two irregular fragments of light pitt soft tissue that in aggregate measure 0.8 x 0.3 x 0.1 cm. The specimen is totally submitted in one cassette. C - Received in fixative is one container labeled with the patient's name and designated distal esophagus biopsy. The specimen consists of two irregular fragments of light pitt soft tissue that in aggregate measure 0.8 x 0.3 x 0.1 cm. The specimen is totally submitted in one cassette. / SJ:rg 02/26/2022 TC:3 CPT: 66453 x3, 32006
[2022-02-26 06:43] VITALS: BP 123/68; PULSE 72; RESP 14; TEMP 36.5; O2SAT 94; BMI 30.2
[2022-02-26] MEDS: Lactated Ringers 1,000 ML 15 ML IV (06:47)
[2022-02-26 06:55] LABS: Bedside Glucose 112 mg/dL (74-106)
--- NOTE | 2022-02-26 07:10 | HP.PCM_ITS ---
History and Physical Date of Admission: 02/26/22 JOSE HATHAWAY, is a 71 M who presents to the office today for slow transit constipation associated with segmental colitis associated with diverticulosis. He had an ileus last year. Golytely and mag citrate then were ineffective. A colonoscopy approx 8 mos prior has been normal. No hx bowel disease. No constipation until just prior to ileus. He does have DM. Since finishing 10 weeks of mesalamine 2.4 g daily for SCAD (completed that approx 3 wks ago) his bowels have been the same. Having daily BM but does sometimes have to strain. He stopped lactulose since it was causing runny diarrhea. Attempted 290mcg Linzess prior to lactulose however this caused him to have liquid movement. Filling Linzess 72mcg would have been too expensive.Can have discomfort across lower abd when he needs a BM. Appetite still not back to normal. Weight has been stable. notes he burps more. No acid reflux but he notes chest discomfort when he lies down. Food not getting stuck but occas notes a bit of difficulty swallowing food, very minor. No prior EGD. No nausea or vomiting. Colonoscopy performed 09/02/21. Colonoscopy ? moderate diverticulosis in sigmoid colon, descending colon, splenic flexure without evidence of bleed. Two polyps removed from sigmoid colon. Biopsy - sigmoid colon polyp, tubular adenoma. ROS Const Constitutional: Positive for fatigue; No fever(s), headache(s), weight change, sleep problems, abnormal sleep pattern or change in appetite ENT ENT: No headache(s), difficulty swallowing, hoarseness or sore throat Resp Respiratory: Positive for cough and wheezing; No hemoptysis or shortness of breath Cardio Cardiology: Positive for dyspnea on exertion; No chest pain at rest or generalized swelling Gastro GI: Positive for abdominal pain, belching and constipation; No bloating, change in bowel habits, change in stool character, coffee ground emesis, cramping, diarrhea, heartburn, difficulty swallowing, feeling full early, excessive flatus, incontinent of stools, Vomiting blood/hematemesis, Blood in stool, loose stools, Black,tarry stools, nausea/dyspepsia, pain with swallowing or vomiting Musc Musculoskeletal: Positive for stiffness and Arthritis; No joint pain, back pain, joint swelling, numbness or tingling Skin Skin: No itchy eyes or rash Neuro Neurology: No behavioral changes, confusion, headache(s), numbness or tingling Psych Psychiatric: No abnormal sleep pattern, No anxiety, No behavioral changes, No change in appetite, No confusion and No depression Endo Endocrine: Positive for fatigue; No cold intolerance, heat intolerance, increased thirst/drinking or weight change Aller/Imm Allergy/Immunologic: Positive for wheezing; No food intolerance or itchy eyes Colby/Lymp Hematologic/Lymphatic: No easy bleeding, easy bruising or enlarged lymph nodes Exam Const General: cooperative, healthy appearing, no acute distress, well developed and well groomed Resp Effort & Inspection: normal respiratory effort GI Inspection: normal to inspection Palpation: soft and nontender Quality Reporting Tobacco Screening ([facility] 138) Smoking Status: Never smoker Assessment and Plan Assessment and Plan (1) Constipated: Status: Acute (2) Segmental colitis associated with diverticulosis: Status: Acute (3) Dysphagia: Status: Acute Plan: 71-year-old male with constipation, segmental colitis associated with diverticulosis, mild dysphagia and chest pain with lying down. This chest pain is different from what he has experienced in the past with exertion. Because of that pain plus mild dysphagia we will go ahead and get an EGD. He did well with 10 weeks of mesalamine for SCAD. Bowels he can try a fiber supplement or MiraLAX. Follow-up 2 weeks after EGD. I have re-examined the patient. There are no clinical changes since date of exam.
--- NOTE | 2022-02-26 07:15 | IMM_PTH ---
PATIENT: JOSE HATHAWAY LOC: EN U#:[id number] AGE/SX: 71/M ROOM: RE02/26/[address]: Dr. Robert Flores DO : 1950 BED: DIS: 02/26/2022 SPEC #: [id number] RECD: 02/26/22 12:42 STATUS: EVERARDO RENyasia #: [id number] LORRAINE: 02/26/22 07:[address]: Robert Flores DEPT: IMMUNOHISTOCHEMISTRY RECD BY: Mala Vega ENTERED: 02/26/22 12:43 SP TYPE: IMMUNO OTHR DR: Dr. Adam Alex MD Tissues: A - Stomach, NOS Procedures: H Pylori (initial) PHYSICIAN & INSTITUTION [place] [id number] SPECIMEN INFORMATION: Tissue Source: A ? Gastric body biopsy Clinical Info: Constipation, segmental colitis associated with diverticulosis, dysphagia Specimen Number: [id number] CPT code: 97631 METHODOLOGY: Deparaffinized sections of prefer/formalin-fixed tissue or PAP/DQ stained slides are incubated with monoclonal/polyclonal antibodies/oligonucleotide probes. Localization is made via biotin free immunoperoxidase method. Appropriate controls are performed and reacted as expected. Results on target cell population are indicated in the following table: RESULTS: ANTIBODY / CLONE RESULT Block A H Pylori (polyclonal) negative These tests were developed and their performance characteristics determined by [facility]. They may not have been cleared or approved by the U.S. Food and Drug Administration. The FDA has determined that such clearance or approval is not necessary. The above immunohistochemical/dualISH markers are ordered and reviewed by the Pathologist. INTERPRETATION: A. Gastric body, biopsy: Negative for Helicobacter pylori organisms. AM:misael 02/27/2022
[2022-02-26 07:35] VITALS: BP 123/68; BP 131/116; PULSE 75; RESP 14; TEMP 36.3; O2SAT 96
[2022-02-26 07:40] VITALS: BP 123/68; BP 141/127; PULSE 71; RESP 14; O2SAT 96
--- NOTE | 2022-02-26 07:41 | OP.EGD_ITS ---
Patient Name: Darrel Sandoval Procedure Date: 02/26/2022 7:12 AM Date of : 1950 Age: 71 Procedure: Upper GI endoscopy Indications: Epigastric abdominal pain, Functional Dyspepsia, Dysphagia Providers: Robert Flores DO Medicines: Monitored Anesthesia Care Patient Profile: This is a 71 year old male. Refer to note in patient chart for documentation of history and physical. Patient has symptoms. Complications: No immediate complications. Procedure: Pre-Anesthesia Assessment: - Prior to the procedure, a History and Physical was performed, and patient medications and allergies were reviewed. The risks and benefits of the procedure and the sedation options and risks were discussed with the patient. All questions were answered and informed consent was obtained. Patient identification and proposed procedure were verified by the physician in the pre-procedure area. Mental Status Examination: alert and oriented. Airway Examination: normal oropharyngeal airway and neck mobility. Respiratory Examination: clear to auscultation. CV Examination: normal. Prophylactic Antibiotics: The patient does not require prophylactic antibiotics. Prior Anticoagulants: The patient has taken no previous anticoagulant or antiplatelet agents. After reviewing the risks and benefits, the patient was deemed in satisfactory condition to undergo the procedure. The anesthesia plan was to use moderate sedation / analgesia (conscious sedation). Immediately prior to administration of medications, the patient was re-assessed for adequacy to receive sedatives. The heart rate, respiratory rate, oxygen saturations, blood pressure, adequacy of pulmonary ventilation, and response to care were monitored throughout the procedure. The physical status of the patient was re-assessed after the procedure. After obtaining informed consent, the endoscope was passed under direct vision. Throughout the procedure, the patient's blood pressure, pulse, and oxygen saturations were monitored continuously. The Endoscope was introduced through the mouth, and advanced to the second part of duodenum. The upper GI endoscopy was accomplished without difficulty. The patient tolerated the procedure well. Scope In: 7:21:39 AM Scope Out: 7:30:23 AM Total Procedure Duration Time 0 hours 8 minutes 44 seconds Findings: LA Grade B (one or more mucosal breaks greater than 5 mm, not extending between the tops of two mucosal folds) esophagitis with no bleeding was found 37 to 40 cm from the incisors. Biopsies were taken with a cold forceps for histology. Verification of patient identification for the specimen was done. Estimated blood loss was minimal. A moderate Schatzki ring was found in the lower third of the esophagus. A guidewire was placed and the scope was withdrawn. Dilation was performed with a Savary dilator with no resistance at 51 Fr. The dilation site was examined following endoscope reinsertion and showed moderate improvement in luminal narrowing. Estimated blood loss was minimal. Localized moderate inflammation characterized by congestion (edema), erosions and erythema was found in the gastric body. Biopsies were taken with a cold forceps for histology. Verification of patient identification for the specimen was done. Estimated blood loss was minimal. Localized mild inflammation characterized by erosions and erythema was found in the duodenal bulb. Biopsies were taken with a cold forceps for histology. Verification of patient identification for the specimen was done. Estimated blood loss was minimal. Impression: - LA Grade B reflux esophagitis. Rule out Haley's esophagus. Biopsied. - Moderate Schatzki ring. Dilated. - Gastritis. Biopsied. - Duodenitis. Biopsied. Recommendation: - Discharge patient to home. - Resume previous diet. - Continue present medications. - Await pathology results. Procedure Code(s): --- Professional --- 55297, Esophagogastroduodenoscopy, flexible, transoral; with insertion of guide wire followed by passage of dilator(s) through esophagus over guide wire 65702, 59, Esophagogastroduodenoscopy, flexible, transoral; with biopsy, single or multiple CPT copyright 2017 [employer]. All rights reserved. The codes documented in this report are preliminary and upon plant etiologist review may be revised to meet current compliance requirements. Robert Flores DO 02/26/2022 7:40:37 AM This report has been signed electronically. Number of Addenda: 1 Note Initiated On: 02/26/2022 7:12 AM Addendum Number: 1 Addendum Date: 07/11/2022 6:19:39 AM MAC was used as sedation for this procedure. Robert Flores DO 07/11/2022 6:19:43 AM This report has been signed electronically.
--- NOTE | 2022-02-26 07:42 | OP.CCLET_ITS ---
07/11/2022 dAam Alex MD [address] [place] [address] Re : Upper GI endoscopy procedure for [facility] Dear Dr. Alex This procedure was performed on Saturday, February 26, 2022. My impressions and recommendations are as follows: Impressions : - LA Grade B reflux esophagitis. Rule out Haley's esophagus. Biopsied. - Moderate Schatzki ring. Dilated. - Gastritis. Biopsied. - Duodenitis. Biopsied. Recommendations : - Discharge patient to home. - Resume previous diet. - Continue present medications. - Await pathology results. My findings are described in the full procedure note, which is enclosed. If I can be of further assistance, please feel free to contact me at . Sincerely, Robert Friend, 02/26/2022 7:40:37 AM This report has been signed electronically.
[2022-02-26 07:45] VITALS: BP 100/60; BP 123/68; PULSE 63; RESP 14; O2SAT 97
[2022-02-26 07:50] VITALS: BP 100/63; BP 123/68; PULSE 67; RESP 14; TEMP 36.2; O2SAT 95
[2022-02-26 08:06] VITALS: BP 123/68
== END 2022-02-26 08:20 | disposition home or self-care (01) ==
LOC: EN 06:15 → AC 06:16
PROVIDERS: PCP Family Medicine Geriatric Medicine; Referring Provider Family Medicine Geriatric Medicine; Visit Provider Internal Medicine Gastroenterology
PROC: 0DJ08ZZ Inspection of Upper Intestinal Tract, Via Natural or Artificial Opening Endoscopic (ICD-10-PCS; CPT 43235; principal; 2022-02-26 07:10)
DX: R13.10 Dysphagia, unspecified (principal); K21.00 Gastro-esophageal reflux disease with esophagitis, without bleeding; K59.00 Constipation, unspecified; K29.70 Gastritis, unspecified, without bleeding; K29.80 Duodenitis without bleeding; R07.9 Chest pain, unspecified; K57.30 Diverticulosis of large intestine without perforation or abscess without bleeding
CPT/HCPCS: 43248; 43239; 82962; 88305; 88313; 88342; J7120; C1769; J2405

== ENCOUNTER 2022-03-30 20:46 | Observation (INO) | payer MEDICARE, OTHER, SELFPAY ==
[2022-03-30 20:47] VITALS: BP 166/71; PULSE 74; RESP 13; TEMP 36.5; O2SAT 97; BMI 30.9
--- NOTE | 2022-03-30 21:04 | EKG12_ITS ---
Test Reason : DYSRHYTHMIA Blood Pressure : / mmHG Vent. Rate : 069 BPM Atrial Rate : 069 BPM P-R Int : 168 ms QRS Dur : 090 ms QT Int : 410 ms P-R-T Axes : 052 024 048 degrees QTc Int : 439 ms Normal sinus rhythm Normal ECG Confirmed by KATHY BULL, DRU ([id number]), food editor ANGE GARCIA ([id number]) on 03/31/2022 10:19:25 AM Referred By: DC Confirmed By:DRU CHAVEZ MD
--- NOTE | 2022-03-30 21:04 | CT_ITS ---
EXAM: CT HEAD WITHOUT INTRAVENOUS CONTRAST CLINICAL INDICATION: vertigo TECHNIQUE: Multiple axial images were obtained of the head without intravenous contrast. CTDIvol = ( 44.99 ) mGy, DLP = ( 846.73 ) mGycm This CT exam was performed using one or more of the following dose reduction techniques: automated exposure control, adjustment of the mA and/or kV according to patient size, and/or use of iterative reconstruction technique. This report was created using [employer] report generation technology. COMPARISON: None. FINDINGS: BRAIN AND EXTRA-AXIAL SPACES: Unremarkable. No intra- or extra-axial hemorrhage. No evidence of acute infarct. No intracranial mass or mass effect. There is preservation of the alvarado/white matter interface. Posterior fossa structures are unremarkable. Ventricles are appropriate for age. No hydrocephalus. Basal cisterns are patent. BONES/JOINTS: Unremarkable. No discrete lytic or blastic abnormalities. SINUSES: Air-fluid level within the right maxillary sinus on a background of mucosal thickening. MASTOID AIR CELLS: Unremarkable. Clear. ORBITS: Visualized globes, extraocular muscles, optic nerves and retrobulbar fat appear unremarkable. CT/Brain/Head without Contrast IMPRESSION: No acute intracranial pathology. Acute on chronic right maxillary sinusitis. Electronically Signed: Luis Duvall MD at 21:58 EDT ,
[2022-03-30] MEDS: Meclizine HCl 25 MG Tablet PO (21:16)
[2022-03-30] MEDS: 0.9% Normal Saline 1,000 ML 1000 ML IV (21:16)
[2022-03-30 21:27] VITALS: O2SAT 95
[2022-03-30 21:31] LABS: Absolute Lymphocyte Count 1.27 X10^3/uL (0.83-4.51); Absolute Neutrophil Count 4.4 X10^3/uL (2.0-7.7); Basophil# 0.05 X10^3/uL; Basophil% 0.8 % (0-1); Eosinophil# 0.18 X10^3/uL; Eosinophils% 2.7 % (0-5); Hematocrit 39.1 % (40-54); Hemoglobin 13.2 g/dL (13.0-16.5); Lymphocyte # 1.27 X10^3/ul (0.83-4.51); Lymphocyte % 19.3 % (19-41); Mean Corp Hgb Conc 33.8 g/dL (32-36); Mean Corpuscular Hgb 31.5 pg (27.0-32.0); Mean Corpuscular Volume 93.3 fL (80-94); Mean Platelet Vol. 9.3 fl (6.2-12.0); Monocyte# 0.63 X10^3/uL; Monocyte% 9.6 % (0-10); NRBC Flagged by Analyzer 0 % (0-5); Neutrophil # 4.43 X10^3/uL (2.7-7.7); Neutrophil % 67.1 % (47-70); Platelet Count 300 K/mm3 (150-450); RBC Distribution Width CV 12.4 % (11.6-14.6); RBC Distribution Width SD 42.5 fl (35.1-43.9); Red Blood Count 4.19 M/mm3 (4.6-6.2); White Blood Count 6.6 K/mm3 (4.4-11.0)
--- NOTE | 2022-03-30 21:34 | RAD_ITS ---
INDICATION: chest pain EXAMINATION: Frontal view of the chest COMPARISON: None. FINDINGS: Frontal view of the chest was obtained. The cardiac silhouette is not enlarged. Mild elevation of the right hemidiaphragm. Mild atelectasis in the lung bases bilaterally. No pneumothorax. No acute fracture identified. RAD/Chest 1 View (Portable) IMPRESSION: Mild bibasilar atelectasis. Electronically Signed: Jose Carlos Nayak MD at 22:53 EDT ,
[2022-03-30 21:58] LABS: Anion Gap 7 (5-15); BUN 31 mg/dL (7-18); BUN/Creat Ratio 21.7 RATIO (10-20); Calcium,Total 9.1 mg/dL (8.5-10.1); Chloride 106 mmol/L (98-107); Creatinine, Serum 1.43 mg/dL (0.70-1.30); EST Glomerular Filtration Rate 52 mL/min (>60); Est Glom Filt Rate - Afr Amer 63 mL/min (>60); Estimated Creatinine Clearance 48.75 ml/min; Glucose 238 mg/dL (74-106); Potassium 4.4 mmol/L (3.5-5.1); Sodium Level 138 mmol/L (136-145); Troponin-I HS (w/2H Reflex) < 3 pg/mL (3.0-78.0)
--- NOTE | 2022-03-30 23:16 | EDS_ITS ---
HPI History of Present Illness Chief Complaint: Chest Pain Informant: patient Onset/Context/Timing Onset: Today Current Severity: Mild Maximum Severity: Severe Worsened by: head movement Associated Symptoms Associated Symptoms: unsteady on his feet Narrative Narrative: [place] the beach [place] He was not on a boat. Around 6:15 PM, he had chest pain. The pain lasted for minutes. He also had vertigo. Everything was spinning. His gait was unsteady. It is worse with moving his head. No other neurologic symptoms. Nothing seems to make it better. Prior similar symptoms: No Recent Illness/Hospitalization: No [facility] Medical History Angina pectoris Appendicitis Back pain BPH (benign prostatic hyperplasia) Bruising Cardiology follow-up encounter Chest pain Constipated Diabetes Diverticulosis Dizziness Easy bruising Essential hypertension History of diverticulitis History of echocardiogram History of left heart catheterization (LHC) (~01/16/22) History of steroid therapy History of stress test Ileus Kidney stones Leg cramps Leg cramps Mixed hyperlipidemia Non-smoker radial shortening SOB (shortness of breath) on exertion Type 2 diabetes mellitus Wears glasses Home Medications glimepiride 4 mg tablet 2 mg PO BID 11/28/16 [History Last Taken 11/28/16 08:00] lisinopril 20 mg tablet 20 mg PO DAILY 11/28/16 [History Last Taken 02/26/22] metformin 1,000 mg tablet 1,000 mg PO BIDCM 11/28/16 [History Last Taken 01/15/22] simvastatin 40 mg tablet 40 mg PO QHS 11/28/16 [History Last Taken 11/27/16] aspirin 325 mg tablet 325 mg PO QDAY 11/18/17 [History Last Taken 01/16/22] cholecalciferol (vitamin D3) 25 mcg (1,000 unit) tablet (Vitamin D3) 25 mcg PO DAILY 08/13/21 [History Last Taken Unknown] multivitamin 1 tab PO DAILY 08/13/21 [History Last Taken Unknown] pioglitazone 30 mg tablet 30 mg PO DAILY blood sugar 08/13/21 [History Last Taken Unknown] metoprolol tartrate 25 mg tablet 25 mg PO BID #180 tabs 01/16/22 [Rx Last Taken 02/26/22] albuterol sulfate 90 mcg/actuation aerosol inhaler 2 puff inhalation Q4H PRN shortness of breath or wheezing #8.5 grams 01/20/22 [Rx Last Taken Unknown] sucralfate 1 gram tablet (Carafate) 1 g PO QAC #90 tabs 03/07/22 [Rx Last Taken Unknown] magnesium oxide 400 mg PO DAILY 03/30/22 [History Last Taken Unknown] mesalamine 1.2 gram tablet,delayed release 2.4 g PO DAILY 03/30/22 [History Last Taken Unknown] pantoprazole 40 mg tablet,delayed release (Protonix) 40 mg PO BID 03/30/22 [History Last Taken Unknown] polyethylene glycol 3350 17 gram oral powder packet (Miralax) 17 g PO DAILY PRN Constipation 03/30/22 [History Last Taken Unknown] Allergy/AdvReac Type Severity Reaction Status Date / Time amoxicillin Allergy Swelling Verified 03/26/22 08:01 nitroglycerin Allergy SEVERE Verified 03/26/22 08:01 HYPOTENSION hydrocodone [From Vicodin] AdvReac Other Verified 03/26/22 08:01 Family History Grandfather Heart disease Grandfather Heart disease Grandmother Heart disease Surgical History H/O arthroscopic knee surgery H/O hernia repair History of carpal tunnel surgery History of colonoscopy History of knee replacement History of surgery on arm History of transurethral resection of prostate Hx of appendectomy Social History Smoking Status: Never smoker alcohol intake: never substance use type: does not use caffeine: Yes Type: carbonated beverages ROS ROS ED Constitutional Constitutional ED: Denies chills or fever(s) Eyes Eyes: Denies blurry vision, change in vision or diplopia ENT ENT ED: Denies ear pain Cardiovascular Cardiovascular: Reports chest pain; Denies palpitations or racing heartbeat Respiratory/Chest Respiratory/Chest: Denies cough, dyspnea or dyspnea on exertion Gastrointestinal Gastrointestinal: Denies abdominal pain, nausea or vomiting Genitourinary Genitourinary ED: Denies dysuria Musculoskeletal Musculoskeletal: Denies arthralgias, back pain, myalgias or neck pain Integumentary Denies abscess Neurologic Neurologic: Denies headache(s), paresthesias or weakness Psychiatric Psychiatric: Denies anxiety Endocrine Endocrinology: Denies cold intolerance Allergic/Immunologic Allergic/Immunologic ED: Denies mouth swelling EXAM Physical Exam Const Vital Signs: 03/30/22 20:47 03/30/22 21:27 Temperature 97.7 F L Temperature Source Temporal Pulse Rate 74 Respiratory Rate 13 Blood Pressure 166/71 H Blood Pressure Mean 102 Pulse Ox 97 95 Oxygen Delivery Method Room Air Room Air Positive well nourished and well developed General Appearance ED: well developed HEENT Reports moist mucous membranes Negative for trauma Eyes EOMs intact bilaterally Eyes Narrative: No nystagmus Neck no lymphadenopathy Resp normal respiratory effort and clear to auscultation bilaterally Cardio regular rate and regular rhythm GI normal to inspection, nondistended, normoactive bowel sounds Extremity normal to inspection Neuro oriented x3, CN's II-XII intact bilaterally and no sensory deficits noted Neuro Narrative: Wide-based gait and unsteady Sensorium / Orientation: alert; Negative for orientation impaired Motor Exam: strength 5/5 throughout; Negative for general weakness or strength abnormal Psych mental status grossly normal MDM MDM MDM Narrative Medical decision making narrative: EKG was interpreted by me and showed sinus rhythm with no sign of ischemia or infarction. Patient was placed on the monitor. I do not believe this is ACS. He had a heart cath about 2 months ago. He only had about 10 minutes of chest pain. Chest x-ray was reviewed by the radiologist and myself and showed no acute abnormalities. His vertigo symptoms all sounded peripheral. He was treated with meclizine and had no improvement. I attempted to ambulate him and he was having an unsteady gait with a wide-based gait and I am concerned for ataxia. Even if this is all peripheral, I am concerned for a fall risk believe he could possibly benefit from physical therapy if available. I spoke with the hospitalist who will evaluate. Stroke was also considered, but his CT was unremarkable for anything acute. He did not have any other stroke symptoms or findings on exam. Hospitalist is consulted and patient is awaiting disposition at this time. Impression #1 vertigo Impression #2 ataxia Lab Data Attestation: I reviewed the patient's lab results. Labs: Laboratory Results - last 24 hr 03/30/22 03/30/22 21:16 21:16 WBC 6.6 RBC 4.19 L Hgb 13.2 Hct 39.1 L MCV 93.3 MCH 31.5 MCHC 33.8 RDW Std Deviation 42.5 RDW Coeff of Claudette 12.4 Plt Count 300 MPV 9.3 Immature Gran % (Auto) 0.500 Neut % (Auto) 67.1 Lymph % (Auto) 19.3 [place] % (Auto) 9.6 Eos % (Auto) 2.7 Baso % (Auto) 0.8 Absolute Neuts (auto) 4.4 Absolute Lymphs (auto) 1.27 Nucleated RBC % 0 Sodium 138 Potassium 4.4 Chloride 106 Carbon Dioxide 25.0 Anion Gap 7 BUN 31 H Creatinine 1.43 H Estim Creat Clear Calc 48.75 Est GFR (MDRD) Af Amer 63 Est GFR (MDRD) Non-Af 52 L BUN/Creatinine Ratio 21.7 H Glucose 238 H Calcium 9.1 Troponin I High Sens < 3 L Radiography Chest X-Ray - ED: Read by ED Physician and Read by Radiologist Diagnostic Testing: Clinical Impression(s) from Imaging Studies Brain CT 03/30/22 21:04 IMPRESSION: No acute intracranial pathology. Acute on chronic right maxillary sinusitis. Electronically Signed: Luis Duvall MD at 21:58 EDT , Chest X-Ray 03/30/22 21:34 IMPRESSION: Mild bibasilar atelectasis. Electronically Signed: Jose Carlos Nayak MD at 22:53 EDT , Discharge Plan Triage Chief Complaint: Chest Pain Other Complaint: Dizziness Nausea/Vomiting ED Provider: Reynaldo Schmitt Dx/Rx/DC Orders Prescriptions: No Action aspirin 325 mg tablet 325 mg PO QDAY albuterol sulfate 90 mcg/actuation HFA aerosol inhaler 2 puff inhalation Q4H PRN (Reason: shortness of breath or wheezing) Qty: 8.5 3RF Rx Instructions: administer with spacer lisinopril 20 MG tablet 20 mg PO DAILY Label Comments: BLOOD PRESSURE metformin 1,000 MG tablet 1,000 mg PO BIDCM Label Comments: DIABETES glimepiride 4 MG tablet 2 mg PO BID Label Comments: DIABETES simvastatin 40 MG tablet 40 mg PO QHS Label Comments: CHOLESTEROL LOWERING multivitamin Tablet 1 tab PO DAILY pioglitazone 30 mg tablet 30 mg PO DAILY cholecalciferol (vitamin D3) [Vitamin D3] 25 mcg (1,000 unit) Tablet 25 mcg PO DAILY polyethylene glycol 3350 [Miralax] 17 gram Powder In Packet 17 g PO DAILY PRN (Reason: Constipation) mesalamine 1.2 gram Tablet,Delayed Release (Dr/Ec) 2.4 g PO DAILY magnesium oxide 400 mg magnesium Tablet 400 mg PO DAILY pantoprazole [Protonix] 40 mg tablet,delayed release (DR/EC) 40 mg PO BID Rx Instructions: take two times a day for eight weeks then once a day metoprolol tartrate 25 mg tablet 25 mg PO BID Qty: 180 3RF sucralfate [Carafate] 1 gram tablet 1 g PO QAC Qty: 90 0RF Primary Care Provider: Adam Alex Chi Referrals: Adam Alex Chi, MD [Primary Care Provider] -
[2022-03-30 23:19] LABS: Reflex Troponin-HS? (from REC) Y
[2022-03-30] MEDS: LORazepam 2 MG/ML Syringe 0.5 MG IV (23:29)
[2022-03-30 23:50] VITALS: BP 135/72; PULSE 70; RESP 16; TEMP 36.7; O2SAT 97
[2022-03-30 23:50] LABS: Troponin-I HS 5 pg/mL (3.0-78.0)
--- NOTE | 2022-03-30 23:55 | HP.PCM.HOS_ITS ---
HPI - General General Date of Admission: 03/30/22 Date of Service: 03/30/22 Chief Complaint: dizziness HPI Narrative JOSE HATHAWAY, is a 71 M who presents with dizziness. Symptoms began around 1800. Worse with movement such as standing up and turning his head. Never had the symptoms before. Had a head CT in the emergency room that was unremarkable. Patient was still feeling dizzy upon standing up and hospitalist was contacted for admission. Patient did have some chest pain before all this the did resolve. Patient did receive meclizine in the emergency room which did not alleviate his symptoms. [facility] Medical History Angina pectoris Appendicitis Back pain BPH (benign prostatic hyperplasia) Bruising Cardiology follow-up encounter Chest pain Constipated Diabetes Diverticulosis Dizziness Easy bruising Essential hypertension History of diverticulitis History of echocardiogram History of left heart catheterization (LHC) (~01/16/22) History of steroid therapy History of stress test Ileus Kidney stones Leg cramps Leg cramps Mixed hyperlipidemia Non-smoker radial shortening SOB (shortness of breath) on exertion Type 2 diabetes mellitus Wears glasses Home Medications glimepiride 4 mg tablet 2 mg PO BID 11/28/16 [History Last Taken 11/28/16 08:00] lisinopril 20 mg tablet 20 mg PO DAILY 11/28/16 [History Last Taken 02/26/22] metformin 1,000 mg tablet 1,000 mg PO BIDCM 11/28/16 [History Last Taken 01/15/22] simvastatin 40 mg tablet 40 mg PO QHS 11/28/16 [History Last Taken 11/27/16] aspirin 325 mg tablet 325 mg PO QDAY 11/18/17 [History Last Taken 01/16/22] cholecalciferol (vitamin D3) 25 mcg (1,000 unit) tablet (Vitamin D3) 25 mcg PO DAILY 08/13/21 [History Last Taken Unknown] multivitamin 1 tab PO DAILY 08/13/21 [History Last Taken Unknown] pioglitazone 30 mg tablet 30 mg PO DAILY blood sugar 08/13/21 [History Last Taken Unknown] metoprolol tartrate 25 mg tablet 25 mg PO BID #180 tabs 01/16/22 [Rx Last Taken 02/26/22] albuterol sulfate 90 mcg/actuation aerosol inhaler 2 puff inhalation Q4H PRN shortness of breath or wheezing #8.5 grams 01/20/22 [Rx Last Taken Unknown] sucralfate 1 gram tablet (Carafate) 1 g PO QAC #90 tabs 03/07/22 [Rx Last Taken Unknown] magnesium oxide 400 mg PO DAILY 03/30/22 [History Last Taken Unknown] mesalamine 1.2 gram tablet,delayed release 2.4 g PO DAILY 03/30/22 [History Last Taken Unknown] pantoprazole 40 mg tablet,delayed release (Protonix) 40 mg PO BID 03/30/22 [History Last Taken Unknown] polyethylene glycol 3350 17 gram oral powder packet (Miralax) 17 g PO DAILY PRN Constipation 03/30/22 [History Last Taken Unknown] Allergy/AdvReac Type Severity Reaction Status Date / Time amoxicillin Allergy Swelling Verified 03/26/22 08:01 nitroglycerin Allergy SEVERE Verified 03/26/22 08:01 HYPOTENSION hydrocodone [From Vicodin] AdvReac Other Verified 03/26/22 08:01 Family History Grandfather Heart disease Grandfather Heart disease Grandmother Heart disease Surgical History H/O arthroscopic knee surgery H/O hernia repair History of carpal tunnel surgery History of colonoscopy History of knee replacement History of surgery on arm History of transurethral resection of prostate Hx of appendectomy Social History Smoking Status: Never smoker alcohol intake: never substance use type: does not use caffeine: Yes Type: carbonated beverages ROS ROS Narrative Nausea and vomiting. Chronic shortness of breath. All review of systems were negative except as mentioned above in the history of present illness and the oth er review of systems. Vital Signs Vital Signs Vital Signs: 03/30/22 20:47 03/30/22 21:27 03/30/22 23:50 Temperature 36.5 C L Temperature Source Temporal Pulse Rate 74 70 Respiratory Rate 13 16 Blood Pressure 166/71 H 135/72 H Blood Pressure Mean 102 93 Pulse Ox 97 95 97 Oxygen Delivery Method Room Air Room Air Room Air 03/30/22 23:50 Temperature 36.7 C Temperature Source Oral Pulse Rate 70 Respiratory Rate 16 Blood Pressure 135/72 H Blood Pressure Mean 93 Pulse Ox 97 Oxygen Delivery Method Room Air Weight Weight: 95 kg Body Mass Index (BMI) 30.9 Physical Exam Const alert, no apparent distress, average body habitus and healthy appearing General Appearance: cooperative HEENT normocephalic, head/scalp atraumatic and moist oral mucous membranes Eyes PERRL Eyes Narrative: Left-sided nystagmus that did fatigue Neck no lymphadenopathy Resp normal respiratory effort, no retractions, no use of accessory muscles and clear to auscultation bilaterally Cardio regular rate, regular rhythm, S1 normal heart sound and S2 normal heart sound GI normal to inspection, nondistended, normoactive bowel sounds, soft to palpation, non-tender and non-distended Extremity normal to inspection and full ROM Neuro oriented x3, CN's II-XII intact bilaterally, moves all extremities and no focal motor deficits Neuro Narrative: [place] performed bilaterally and showed no reproducible nystagmus. Patient was stood up at side of the bed and he remained stable but was symptomatic with his dizziness. Sensorium / Orientation: awake and alert Coordination / Balance: [id number] test normal and [id number] test normal Speech: speech normal Motor Exam: strength 5/5 throughout Psych affect normal Results Lab / Micro Data Attestation: I reviewed the patient's lab results. Result Diagrams: 03/30/22 21:16 03/30/22 21:16 Labs: Laboratory Results - last 24 hr 03/30/22 21:16: WBC 6.6, RBC 4.19 L, Hgb 13.2, Hct 39.1 L, MCV 93.3, MCH 31.5, MCHC 33.8, RDW Std Deviation 42.5, RDW Coeff of Claudette 12.4, Plt Count 300, MPV 9.3, Immature Gran % (Auto) 0.500, Neut % (Auto) 67.1, Lymph % (Auto) 19.3, [place] % (Auto) 9.6, Eos % (Auto) 2.7, Baso % (Auto) 0.8, Absolute Neuts (auto) 4.4, A bsolute Lymphs (auto) 1.27, Nucleated RBC % 0 03/30/22 21:16: Sodium 138, Potassium 4.4, Chloride 106, Carbon Dioxide 25.0, Anion Gap 7, BUN 31 H, Creatinine 1.43 H, Estim Creat Clear Calc 48.75, Est GFR (MDRD) Af Amer 63, Est GFR (MDRD) Non-Af 52 L, BUN/Creatinine Ratio 21.7 H, Glucose 238 H, Calcium 9.1, Troponin I High Sens < 3 L 03/30/22 23:30: Troponin I High Sens 5 EKG Initial EKG: Attestation: I personally reviewed and interpreted this EKG as follows: Prior EKG tracings: available for review EKG Rhythm Intrepretation: Sinus Rhythm Radiology Impression Brain CT 03/30/22 21:04 IMPRESSION: No acute intracranial pathology. Acute on chronic right maxillary sinusitis. Electronically Signed: Luis Duvall MD at 21:58 EDT , Chest X-Ray 03/30/22 21:34 IMPRESSION: Mild bibasilar atelectasis. Electronically Signed: Jose Carlos Nayak MD at 22:53 EDT , Assessment & Plan Assessment/Plan (1) Vertigo: PLAN: Clinically, I suspect that this is benign paroxysmal positional vertigo. Discussed with the patient and his family. Patient overall feels better but still unsteady on his feet. Did give patient option to stay or go home. He feels too unsteady to go home at this time. Meclizine as needed Physical therapy for vestibular therapy (2) Chest pain: PLAN: Atypical Noncardiac Patient underwent left heart catheterization in January of this year that was negative for any cardiac etiology of the chest pain. Patient does have esophagitis which could be contributing but could also be related with musculoskeletal or anxiety. PLAN: Plan VTE prophylaxis: Not indicated given observation status. Charges/Coding Visit Charges OBSV E&M: 82337 Initial observation care L2
[2022-03-31 00:24] VITALS: BP 147/68; PULSE 60; RESP 18; TEMP 36.6; O2SAT 95
[2022-03-31 00:26] VITALS: BMI 30.7
[2022-03-31 05:38] VITALS: BP 138/70; PULSE 67; RESP 18; TEMP 36.6; O2SAT 98
[2022-03-31 08:38] VITALS: BP 116/64; PULSE 66; RESP 18; TEMP 36.4; O2SAT 96
[2022-03-31 08:39] VITALS: BP 116/64; BP 136/73; BP 141/73; PULSE 66; PULSE 69; PULSE 74
[2022-03-31] MEDS: Pantoprazole Sodium 40 MG Tablet PO (08:59)
[2022-03-31] MEDS: Meclizine HCl 25 MG Tablet PO ×2 (08:59→15:23)
[2022-03-31] MEDS: Glimepiride 2 MG Tablet PO (08:59)
[2022-03-31] MEDS: metFORMIN HCl 1,000 MG Tablet 1000 MG PO (08:59)
[2022-03-31] MEDS: 0.9% Saline Lock 10 ML Syringe IV (09:00)
[2022-03-31] MEDS: 0.9% Normal Saline 1,000 ML 500 ML IV (09:00)
[2022-03-31] MEDS: 0.9% Normal Saline 1,000 ML 1 ML IV (09:02)
--- NOTE | 2022-03-31 09:25 | DCINST_ITS ---
Discharge Instructions Diet Discharge Diet: Carb Control Diet Activity Discharge Activity: Return to Normal Activity Dressing / Incision Call your doctor if you observe: Fever of 101 or Higher, Shortness of breath, Dizziness, Fainting spells, Swelling in the ankles, Chest pain and Increased palpitations (irregular heartbeat) Follow Up Care Test Results: Test results from this visit will be discussed in further detail at your follow- up appointment, if applicable. Discharge Plan Admission Admit Date/Time: 03/30/22 23:51 Attending Provider: Sebastian Keith Primary Care Provider: Adam Alex Chi Consulting Providers: Adam Lerma Discharge Orders/Prescriptions Prescriptions: Continued aspirin 325 mg tablet 325 mg PO QDAY albuterol sulfate 90 mcg/actuation HFA aerosol inhaler 2 puff inhalation Q4H PRN (Reason: shortness of breath or wheezing) Qty: 8.5 3RF Rx Instructions: administer with spacer lisinopril 20 MG tablet 20 mg PO DAILY Label Comments: BLOOD PRESSURE metformin 1,000 MG tablet 1,000 mg PO BIDCM Label Comments: DIABETES glimepiride 4 MG tablet 2 mg PO BID Label Comments: DIABETES simvastatin 40 MG tablet 40 mg PO QHS Label Comments: CHOLESTEROL LOWERING multivitamin Tablet 1 tab PO DAILY pioglitazone 30 mg tablet 30 mg PO DAILY cholecalciferol (vitamin D3) [Vitamin D3] 25 mcg (1,000 unit) Tablet 25 mcg PO DAILY polyethylene glycol 3350 [Miralax] 17 gram Powder In Packet 17 g PO DAILY PRN (Reason: Constipation) pantoprazole [Protonix] 40 mg tablet,delayed release (DR/EC) 40 mg PO BID Rx Instructions: take two times a day for eight weeks then once a day metoprolol tartrate 25 mg tablet 25 mg PO BID Qty: 180 3RF sucralfate [Carafate] 1 gram tablet 1 g PO QAC Qty: 90 0RF Referrals / Follow Up: Adam Alex Chi, MD [Primary Care Provider] - Within 1 Week Disposition Disposition (needs filled in before D/C Order can be placed): Home, Self Care
[2022-03-31 09:36] VITALS: PULSE 66
[2022-03-31] MEDS: Metoprolol Tartrate 25 MG Tablet PO (09:36)
[2022-03-31] MEDS: Lisinopril 20 MG Tablet PO (09:36)
[2022-03-31] MEDS: Pioglitazone Hydrochloride 30 MG Tablet PO (09:36)
[2022-03-31] MEDS: Aspirin 325 MG Tablet PO (09:36)
[2022-03-31] MEDS: Sucralfate 1 GM Tablet PO (11:01)
--- NOTE | 2022-03-31 12:24 | DS.PCM_ITS ---
Providers Date of Admission: 03/30/22 Primary Care Physician: Dr. Adam Alex MD Reason For Visit: VERTIGO Diagnosis Discharge Diagnosis (1) Vertigo: Status: Acute Code(s): R42 - Dizziness and giddiness (2) Chest pain: Status: Acute Code(s): R07.9 - Chest pain, unspecified Medications at Discharge Home Medications glimepiride 4 mg tablet 2 mg PO BID diabetes 11/28/16 lisinopril 20 mg tablet 20 mg PO DAILY hypertension 11/28/16 metformin 1,000 mg tablet 1,000 mg PO BIDCM diabetes 11/28/16 simvastatin 40 mg tablet 40 mg PO QHS cholesterol 11/28/16 aspirin 325 mg tablet 325 mg PO QDAY [facility] 11/18/17 cholecalciferol (vitamin D3) 25 mcg (1,000 unit) tablet (Vitamin D3) 25 mcg PO DAILY supplement 08/13/21 multivitamin 1 tab PO DAILY supplement 08/13/21 pioglitazone 30 mg tablet 30 mg PO DAILY blood sugar 08/13/21 metoprolol tartrate 25 mg tablet 25 mg PO BID #180 tabs 01/16/22 albuterol sulfate 90 mcg/actuation aerosol inhaler 2 puff inhalation Q4H PRN shortness of breath or wheezing #8.5 grams 01/20/22 sucralfate 1 gram tablet (Carafate) 1 g PO QAC #90 tabs 03/07/22 pantoprazole 40 mg tablet,delayed release (Protonix) 40 mg PO BID GERD 03/30/22 polyethylene glycol 3350 17 gram oral powder packet (Miralax) 17 g PO DAILY PRN Constipation 03/30/22 Hospital Course Operations None Procedures None Summary of Care Provided Minutes Spent on Discharge: 40 Hospital Course: Per HPI: JOSE HATHAWAY, is a 71 M who presents with dizziness.? Symptoms began around 1800.? Worse with movement such as standing up and turning his head.? Never had the symptoms before.? Had a head CT in the emergency room that was u nremarkable.? Patient was still feeling dizzy upon standing up and hospitalist was contacted for admission.? Patient did have some chest pain before all this the did resolve.? Patient did receive meclizine in the emergency room which did not alleviate his symptoms. Hospital Course: 1. Benign paroxysmal positional vertigo?71-year-old male recently back from [place] presented to the hospital with dizziness. He said it mostly occurred with change in position, he is feeling much better now that he has gotten several liters of fluid. He is able to ambulate much easier today and according to his this is much better than what it was yesterday. Chest pain is completely resolved and his troponins were unremarkable. I discussed with him the need to stay hydrated as he says that his urine has been fairly dark recently. I discussed with him and his the plan for possible discharge today, he expressed understanding of the risk benefits of going home and would like to go home today. Will need to follow-up with his PCP as an outpatient in 3 to 5 days. 2. Type 2 diabetes, hypertension, hyperlipidemia, GERD, are all chronic medical conditions which complicate his care. His home medications were continued where appropriate Physical Exam Const alert, oriented x3 and no apparent distress General Appearance: cooperative HEENT normocephalic and moist oral mucous membranes Eyes PERRL, EOMs intact bilaterally and conjunctivae normal Neck supple and no JVD Resp normal respiratory effort, no retractions, no use of accessory muscles and clear to auscultation bilaterally Auscultation: Negative for crackles, rales, rhonchi or wheezes Cardio regular rate, regular rhythm, S1 normal heart sound, S2 normal heart sound and no murmurs GI soft to palpation, non-tender and non-distended; Negative for hepatosplenomegaly Extremity no clubbing, cyanosis or edema Skin no rashes or lesions noted Neuro no focal motor deficits and no sensory deficits noted Psych affect normal Appearance: appropriate Weight / BMI Weight Weight: 208 lb 5.389 oz Body Mass Index (BMI) 30.7 ABG / Lab / Microbiology Data Result Diagrams: 03/30/22 21:16 03/30/22 21:16 Laboratory: Laboratory Results - last 24 hr 03/30/22 21:16: WBC 6.6, RBC 4.19 L, Hgb 13.2, Hct 39.1 L, MCV 93.3, MCH 31.5, MCHC 33.8, RDW Std Deviation 42.5, RDW Coeff of Claudette 12.4, Plt Count 300, MPV 9.3, Immature Gran % (Auto) 0.500, Neut % (Auto) 67.1, Lymph % (Auto) 19.3, [place] % (Auto) 9.6, Eos % (Auto) 2.7, Baso % (Auto) 0.8, Absolute Neuts (auto) 4.4, Absolute Lymphs (auto) 1.27, Nucleated RBC % 0 03/30/22 21:16: Sodium 138, Potassium 4.4, Chloride 106, Carbon Dioxide 25.0, Anion Gap 7, BUN 31 H, Creatinine 1.43 H, Estim Creat Clear Calc 48.75, Est GFR (MDRD) Af Amer 63, Est GFR (MDRD) Non-Af 52 L, BUN/Creatinine Ratio 21.7 H, Glucose 238 H, Calcium 9.1, Troponin I High Sens < 3 L 03/30/22 23:30: Troponin I High Sens 5 Radiography Diagnostic Testing: Radiology Impression Brain CT 03/30/22 21:04 IMPRESSION: No acute intracranial pathology. Acute on chronic right maxillary sinusitis. Electronically Signed: Luis Duvall MD at 21:58 EDT , Chest X-Ray 03/30/22 21:34 IMPRESSION: Mild bibasilar atelectasis. Electronically Signed: Jose Carlos Nayak MD at 22:53 EDT , D/C Instructions Discharge Diet: Carb Control Diet Call your doctor if you observe: Fever of 101 or Higher, Shortness of breath, Dizziness, Fainting spells, Swelling in the ankles, Chest pain and Increased palpitations (irregular heartbeat) Meaningful Use Info Meaningful Use Diagnoses (Choose all that apply): None applicable Discharge Plan Admission Admit Date/Time: 03/30/22 23:51 Attending Provider: Sebastian Keith Primary Care Provider: Adam Alex Chi Consulting Providers: Adam Lerma Discharge Orders/Prescriptions Prescriptions: Continued aspirin 325 mg tablet 325 mg PO QDAY albuterol sulfate 90 mcg/actuation HFA aerosol inhaler 2 puff inhalation Q4H PRN (Reason: shortness of breath or wheezing) Qty: 8.5 3RF Rx Instructions: administer with spacer lisinopril 20 MG tablet 20 mg PO DAILY Label Comments: BLOOD PRESSURE metformin 1,000 MG tablet 1,000 mg PO BIDCM Label Comments: DIABETES glimepiride 4 MG tablet 2 mg PO BID Label Comments: DIABETES simvastatin 40 MG tablet 40 mg PO QHS Label Comments: CHOLESTEROL LOWERING multivitamin Tablet 1 tab PO DAILY pioglitazone 30 mg tablet 30 mg PO DAILY cholecalciferol (vitamin D3) [Vitamin D3] 25 mcg (1,000 unit) Tablet 25 mcg PO DAILY polyethylene glycol 3350 [Miralax] 17 gram Powder In Packet 17 g PO DAILY PRN (Reason: Constipation) pantoprazole [Protonix] 40 mg tablet,delayed release (DR/EC) 40 mg PO BID Rx Instructions: take two times a day for eight weeks then once a day metoprolol tartrate 25 mg tablet 25 mg PO BID Qty: 180 3RF sucralfate [Carafate] 1 gram tablet 1 g PO QAC Qty: 90 0RF Referrals / Follow Up: Adam Alex Chi, MD [Primary Care Provider] - Within 1 Week Disposition Disposition (needs filled in before D/C Order can be placed): Home, Self Care Charges/Coding Visit Charges OBSV E&M: 38973 Observation care discharge
--- NOTE | 2022-03-31 13:33 | CHAPLAIN ---
Type of Pastoral Visit _x__ Initial Visit ___ Follow-up Visit ___ On-call Visit ___ General Patient Visit ___ Spiritual Assessment ___ Family Conference ___ Bereavement ___ Rapid Response ___ Code Blue ___ Other (describe below) Pastoral Care Referral From ___ Patient _x__ Family ___ Nurse ___ Physician ___ Admissions Advisor ___ Crib Attendant ___ Other (describe below) Sacrament/Intervention _x__ Active listening ___ Anointing ___ Anabaptism ___ Bereavement ___ Communion ___ Sonia exploration ___ _x__ Life review _x__ Prayer ___ Reconciliation ___ Sacrament of Sick ___ Supportive presence ___ Wedding ___ Other (describe below) Pastoral Comments patient and spouse in room; pt and spouse report the situation and health concern; pt has made improvements since yesterday already; pt expects to go home today; pt welcomes spiritual care, time for review, and prayer
[2022-03-31 13:46] VITALS: BP 126/60; PULSE 63; RESP 18; TEMP 36.7; O2SAT 98
--- NOTE | 2022-03-31 14:35 | CASEMGMT ---
Addendum entered by Savannah Rose 03/31/22 15:00: Provided pt with signed rx for verstibular therapy. Original Note: RENAE BECERRIL notified by therapist that pt would like script for vestibular therapy.RENAE BECERRIL in to pt room, he states he would like a script in case he gets home and feels it is necessary. He does not want RN JONE to set up at this time. He will do so if needed. Notified hospitalist.
--- NOTE | 2022-03-31 14:40 | PHA.DC.MR ---
Pharmacy Service has performed discharge medication reconciliation for this patient. The patient's discharge medication list was reviewed for discrepancies and discrepancies were resolved. Home Medications glimepiride 4 mg tablet 2 mg PO BID diabetes 11/28/16 lisinopril 20 mg tablet 20 mg PO DAILY hypertension 11/28/16 metformin 1,000 mg tablet 1,000 mg PO BIDCM diabetes 11/28/16 simvastatin 40 mg tablet 40 mg PO QHS cholesterol 11/28/16 aspirin 325 mg tablet 325 mg PO QDAY [facility] 11/18/17 cholecalciferol (vitamin D3) 25 mcg (1,000 unit) tablet (Vitamin D3) 25 mcg PO DAILY supplement 08/13/21 multivitamin 1 tab PO DAILY supplement 08/13/21 pioglitazone 30 mg tablet 30 mg PO DAILY blood sugar 08/13/21 metoprolol tartrate 25 mg tablet 25 mg PO BID #180 tabs 01/16/22 albuterol sulfate 90 mcg/actuation aerosol inhaler 2 puff inhalation Q4H PRN shortness of breath or wheezing #8.5 grams 01/20/22 sucralfate 1 gram tablet (Carafate) 1 g PO QAC #90 tabs 03/07/22 pantoprazole 40 mg tablet,delayed release (Protonix) 40 mg PO BID GERD 03/30/22 polyethylene glycol 3350 17 gram oral powder packet (Miralax) 17 g PO DAILY PRN Constipation 03/30/22
== END 2022-03-31 15:47 | disposition home or self-care (01) ==
LOC: ED 22:15 → MS3 23:40
PROVIDERS: Emergency Provider Emergency Medicine; PCP Family Medicine Geriatric Medicine; Visit Provider Family Medicine
DX: H81.10 Benign paroxysmal vertigo, unspecified ear (principal); E11.9 Type 2 diabetes mellitus without complications; R07.89 Other chest pain; I10 Essential (primary) hypertension; E78.2 Mixed hyperlipidemia; R26.81 Unsteadiness on feet; K21.9 Gastro-esophageal reflux disease without esophagitis; Z79.899 Other long term (current) drug therapy; Z79.84 Long term (current) use of oral hypoglycemic drugs; Z79.82 Long term (current) use of aspirin; N40.0 Benign prostatic hyperplasia without lower urinary tract symptoms
CPT/HCPCS: 70450; 71045; 80048; 84484; 85025; 93005; 96361; 96374; 97162; 99218; 99285; J7030; A4216; G0378

== ENCOUNTER → 2022-04-01 | Outpatient (CLI) | payer MEDICARE, OTHER, SELFPAY ==
[2022-04-01 12:48] LABS: Absolute Lymphocyte Count 1.94 X10^3/uL (0.83-4.51); Absolute Neutrophil Count 3.3 X10^3/uL (2.0-7.7); Basophil# 0.05 X10^3/uL; Basophil% 0.8 % (0-1); Eosinophil# 0.24 X10^3/uL; Hematocrit 40.4 % (40-54); Hemoglobin 13.4 g/dL (13.0-16.5); Lymphocyte # 1.94 X10^3/ul (0.83-4.51); Mean Corp Hgb Conc 33.2 g/dL (32-36); Mean Corpuscular Hgb 30.7 pg (27.0-32.0); Mean Corpuscular Volume 92.7 fL (80-94); Mean Platelet Vol. 9.6 fl (6.2-12.0); Monocyte# 0.47 X10^3/uL; Monocyte% 7.7 % (0-10); NRBC Flagged by Analyzer 0 % (0-5); Neutrophil # 3.33 X10^3/uL (2.7-7.7); Neutrophil % 54.8 % (47-70); Platelet Count 319 K/mm3 (150-450); RBC Distribution Width CV 12.6 % (11.6-14.6); RBC Distribution Width SD 42.8 fl (35.1-43.9); Red Blood Count 4.36 M/mm3 (4.6-6.2); White Blood Count 6.1 K/mm3 (4.4-11.0)
[2022-04-01 13:10] LABS: Vitamin D,25 Hydroxy 47.2 ng/mL
[2022-04-01 13:22] LABS: ALB/GLOB Ratio 0.9 RATIO (0.9-2.4); AST(SGOT) 17 U/L (15-37); Alanine Aminotransfer ALT/SGPT 32 U/L (16-61); Albumin, Serum 3.4 g/dL (3.2-5.0); Alkaline Phosphatase 63 U/L (45-117); Anion Gap 8 (5-15); BUN 21 mg/dL (7-18); BUN/Creat Ratio 18.3 RATIO (10-20); Calcium,Total 8.9 mg/dL (8.5-10.1); Chloride 104 mmol/L (98-107); Creatinine, Serum 1.15 mg/dL (0.70-1.30); EST Glomerular Filtration Rate 67 mL/min (>60); Est Glom Filt Rate - Afr Amer 81 mL/min (>60); Globulin 3.8 g/dL (2.2-4.2); Glucose 197 mg/dL (74-106); PSA,Total - Annual Screen 1.38 ng/mL (0.00-4.00); Potassium 4.1 mmol/L (3.5-5.1); Protein, Total 7.2 g/dL (6.4-8.2); Sodium Level 136 mmol/L (136-145); Thyroid Stim Hormone (TSH) 1.01 uIU/mL (0.358-3.74)
== END | disposition home or self-care (01) ==
LOC: POLAB3 11:39
PROVIDERS: PCP Family Medicine Geriatric Medicine; Visit Provider Family Medicine Geriatric Medicine
DX: I10 Essential (primary) hypertension (principal); E11.9 Type 2 diabetes mellitus without complications; E55.9 Vitamin D deficiency, unspecified; Z12.5 Encounter for screening for malignant neoplasm of prostate
CPT/HCPCS: 36415; 80053; 82306; 84153; 84443; 85025; G0103

== ENCOUNTER → 2022-05-15 | Outpatient (CLI) | payer MEDICARE, OTHER, SELFPAY ==
[2022-05-20 11:09] LABS: Alternaria tenuis 0.11 kU/L (Class 0/I); Ash, White 1.68 kU/L (Class III); Aspergillus fumigatus <0.10 kU/L (Class 0); Birch 1.66 kU/L (Class III); Black Walnut 1.58 kU/L (Class III); Cat Hair / Dander,Stand 0.12 kU/L (Class 0/I); Cedar, Mountain 1.33 kU/L (Class II); Cladosporium herbarum <0.10 kU/L (Class 0); Cockroach, American 1.12 kU/L (Class II); Cottonwood 1.54 kU/L (Class III); D farinae Mite 0.64 kU/L (Class II); D pteronyssinus 0.13 kU/L (Class 0/I); Dog Epithelia 0.46 kU/L (Class I); Elm, American White 1.46 kU/L (Class III); Immunoglobulin E 49 IU/mL (6-495); Maple/Box Elder 1.49 kU/L (Class III); Mulberry, White 1.37 kU/L (Class II); Oak, White 1.43 kU/L (Class III); Pecan 1.55 kU/L (Class III); Penicillium Notatum <0.10 kU/L (Class 0); Pigweed, Rough 1.46 kU/L (Class III); Ragweed, Short/Common 1.54 kU/L (Class III); Russian Thistle 1.18 kU/L (Class II); Sheep Sorrel 1.62 kU/L (Class III); Sycamore, American 1.51 kU/L (Class III)
[2022-05-20 16:41] LABS: Mouse Urine <0.10 kU/L (Class 0)
== END | disposition home or self-care (01) ==
LOC: PAVLAB 08:46
PROVIDERS: PCP Family Medicine Geriatric Medicine; Referring Provider Internal Medicine Critical Care Medicine; Visit Provider Internal Medicine Critical Care Medicine
DX: J30.9 Allergic rhinitis, unspecified (principal)
CPT/HCPCS: 36415; 82785; 86003

== ENCOUNTER 2023-04-24 21:32 | Emergency (ER) | payer MEDICARE, OTHER, SELFPAY ==
[2023-04-24 21:33] VITALS: BP 155/86; PULSE 96; RESP 18; TEMP 36.4; O2SAT 95; BMI 29.5
[2023-04-24] MEDS: Tetracaine 0.5% Ophthalmic Bottle 1 DRP EACH EYE (22:36)
[2023-04-24] MEDS: Fluorescein 1 MG STRIP 1 STRIP EACH EYE (22:36)
--- NOTE | 2023-04-24 22:51 | EDS_ITS ---
HPI History of Present Illness Chief Complaint: Eye Problem Informant: patient and spouse/S.O. Narrative Narrative: Patient is a 72-year-old male with past medical history GERD hypertension hyperlipidemia and type 2 diabetes. He wears glasses but denies any use of contact lenses. He states that this afternoon he was helping his daughter move and during this time folic something got in his eye. He states that he does not have change in vision and he denies any direct trauma to his eye or any recent high risk activities such as grinding metal or chipping wood or exposure to UV light. He states he tried to flush his eyes at home without symptom improvement and therefore comes in for evaluation. [facility] Medical History Angina pectoris Appendicitis Back pain BPH (benign prostatic hyperplasia) Bruising Cardiology follow-up encounter Chest pain Constipated Diabetes Diverticulosis Dizziness Easy bruising Essential hypertension History of diverticulitis History of echocardiogram History of steroid therapy History of stress test Ileus Kidney stones Leg cramps Leg cramps Mixed hyperlipidemia Non-smoker radial shortening SOB (shortness of breath) on exertion Type 2 diabetes mellitus Wears glasses Home Medications lisinopril 20 mg tablet 20 mg PO DAILY hypertension 11/28/16 [History Last Taken 03/30/22] metformin 1,000 mg tablet 1,000 mg PO BIDCM diabetes 11/28/16 [History Last Taken 03/30/22] simvastatin 40 mg tablet 40 mg PO QHS cholesterol 11/28/16 [History Last Taken 03/29/22] cholecalciferol (vitamin D3) 25 mcg (1,000 unit) tablet (Vitamin D3) 25 mcg PO DAILY supplement 08/13/21 [History Last Taken 03/30/22] multivitamin 1 tab PO DAILY supplement 08/13/21 [History Last Taken 03/30/22] metoprolol tartrate 25 mg tablet 25 mg PO BID #180 tabs 01/16/22 [Rx Last Taken 03/30/22] polyethylene glycol 3350 17 gram oral powder packet (Miralax) 17 g PO DAILY PRN Constipation 03/30/22 [History Last Taken Unknown] aspirin 81 mg tablet,delayed release (Adult Aspirin Regimen) 81 mg PO QDAY #90 tabs 04/03/22 [Rx Last Taken Unknown] glimepiride 2 mg tablet 2 mg PO BID 04/03/22 [History Last Taken Unknown] fluticasone propionate 50 mcg/actuation nasal spray,suspension (Flonase Allergy Relief) 2 spray intranasal QDAY #16 grams 05/15/22 [Rx Last Taken Unknown] pantoprazole 40 mg tablet,delayed release (Protonix) 40 mg PO QAM GERD #90 tabs 07/16/22 [Rx Last Taken Unknown] cetirizine 10 mg tablet (All Day Allergy (cetirizine)) 10 mg PO DAILY #30 tabs 12/23/22 [Rx Last Taken Unknown] albuterol sulfate 90 mcg/actuation aerosol inhaler 2 puff inhalation Q4H PRN shortness of breath or wheezing #8.5 grams 03/23/23 [Rx Last Taken Unknown] mometasone-formoterol HFA 200 mcg-5 mcg/actuation aerosol inhaler (Dulera) 2 puff inhalation BID #13 grams 03/23/23 [Rx Last Taken Unknown] ayjqkluc-gabazeslo-xueiwbfp 3.5 mg/mL-10,000 unit/mL-0.1% eye drops (Maxitrol) 2 drp EACH EYE 4X/DAY 7 days #5 mL 04/24/23 [Rx Last Taken Unknown] Allergy/AdvReac Type Severity Reaction Status Date / Time amoxicillin Allergy Swelling Verified 04/24/23 21:35 nitroglycerin Allergy SEVERE Verified 04/24/23 21:35 HYPOTENSION hydrocodone [From Vicodin] AdvReac Other Verified 04/24/23 21:35 Family History Grandfather Heart disease Grandfather Heart disease Grandmother Heart disease Surgical History H/O arthroscopic knee surgery H/O hernia repair History of carpal tunnel surgery History of colonoscopy History of knee replacement History of left heart catheterization (LHC) (~01/16/22) History of surgery on arm History of transurethral resection of prostate Hx of appendectomy Social History Smoking Status: Never smoker alcohol intake: never substance use type: does not use caffeine: Yes Type: carbonated beverages ROS ROS ED Constitutional Constitutional ED: Denies chills or fever(s) Eyes Eyes: Reports other Details: Positive eye redness and increased tearing as well as pain ; Denies change in vision ENT ENT ED: Denies rhinorrhea or sore throat Cardiovascular Cardiovascular: Denies chest pain Respiratory/Chest Respiratory/Chest: Denies cough or dyspnea Gastrointestinal Gastrointestinal: Denies abdominal pain, diarrhea, nausea or vomiting Genitourinary Genitourinary ED: Denies dysuria Musculoskeletal Musculoskeletal: Denies myalgias Integumentary Denies rash Neurologic Neurologic: Denies headache(s) Hematologic/Lymphatic Hematologic/Lymphatic: Denies easy bleeding or easy bruising EXAM Physical Exam Const Vital Signs: 04/24/23 21:33 Temperature 97.6 F L Temperature Source Temporal Pulse Rate 96 Respiratory Rate 18 Blood Pressure 155/86 H Blood Pressure Mean 109 Pulse Ox 95 Oxygen Delivery Method Room Air Positive well nourished and well developed General Appearance ED: well developed HEENT HEENT Narrative: Normocephalic atraumatic Eyes PERRL and EOMs intact bilaterally Eyes Narrative: There is scleral injection present bilaterally with increased tearing but no active discharge noted. Mild conjunctival fullness is noted bilaterally as well. Upper lid was everted there is no foreign body. Fluorescein exam reveals no uptake of dye going against a corneal abrasion. Negative Yaya sign. No pain on palpation along the temporal artery bilaterally Neck supple Resp normal respiratory effort and clear to auscultation bilaterally Cardio regular rate and regular rhythm Extremity normal to inspection Neuro oriented x3 and CN's II-XII intact bilaterally Sensorium / Orientation: alert Psych mental status grossly normal Skin no rashes or lesions noted Skin Narrative: No surrounding erythema or warmth or swelling to suggest periorbital cellulitis MDM MDM MDM Narrative Medical decision making narrative: Patient denied any recent trauma or high risk activity but had sensation of some things in his eyes. Despite this vision has not changed. Testing showed no retained foreign body underneath the upper eyelid or signs of corneal abrasion. Further history was elicited and patient did use a chemical spray for insects earlier in the day. Secondary to this the pH of both eyes was checked and is normal at a value of 7-8. At this time patient has scleral injection with increased tearing and normal pH. And no physical exam findings for retained foreign body or corneal abrasion. I do feel that his persistent eye irritation is related to chemical conjunctivitis but as he is not having any type of persistent burning or derangement to his pH he does not need emergent ophthalmology evaluation. As he has no pain along the temporal arteries I do not feel there is need for basic blood work to delineate any potential temporal arteritis. Patient will be placed on a steroidal antibiotic drop to reduce inflammation and prevent infection otherwise safe for discharge History & Record Review Discussion w/independent historian: Patient and Significant other Discharge Plan Triage Chief Complaint: Eye Problem ED Provider: Luis Lizarraga Dx/Rx/DC Orders Clinical Impression: Acute chemical conjunctivitis of both eyes, Type 2 diabetes mellitus, Essential hypertension Instructions: Conjunctivitis Caused by Irritation, ED Eye Exposure, Chemical Prescriptions: New neomycin-polymyxin B-dexameth [Maxitrol] 3.5mg/mL-10,000 unit/mL-0.1 % drops,suspension 2 drp EACH EYE 4X/DAY 7 Days Qty: 5 0RF No Action glimepiride 2 mg tablet 2 mg PO BID aspirin [Adult Aspirin Regimen] 81 mg tablet,delayed release (DR/EC) 81 mg PO QDAY Qty: 90 3RF fluticasone propionate [Flonase Allergy Relief] 50 mcg/actuation spray,suspension 2 spray intranasal QDAY Qty: 16 3RF Rx Instructions: administer into each nostril pantoprazole [Protonix] 40 mg tablet,delayed release (DR/EC) 40 mg PO QAM Qty: 90 3RF cetirizine [All Day Allergy (cetirizine)] 10 mg tablet 10 mg PO DAILY Qty: 30 3RF lisinopril 20 MG tablet 20 mg PO DAILY Patient Comments: BLOOD PRESSURE metformin 1,000 MG tablet 1,000 mg PO BIDCM Patient Comments: DIABETES simvastatin 40 MG tablet 40 mg PO QHS Patient Comments: CHOLESTEROL LOWERING multivitamin Tablet 1 tab PO DAILY cholecalciferol (vitamin D3) [Vitamin D3] 25 mcg (1,000 unit) Tablet 25 mcg PO DAILY polyethylene glycol 3350 [Miralax] 17 gram Powder In Packet 17 g PO DAILY PRN (Reason: Constipation) metoprolol tartrate 25 mg tablet 25 mg PO BID Qty: 180 3RF albuterol sulfate 90 mcg/actuation HFA aerosol inhaler 2 puff inhalation Q4H PRN (Reason: shortness of breath or wheezing) Qty: 8.5 3RF Rx Instructions: administer with spacer Dulera 200-5 mcg/actuation HFA aerosol inhaler 2 puff inhalation BID Qty: 13 11RF Primary Care Provider: Adam Alex Chi Referrals: Adam Alex Chi, MD [Primary Care Provider] - Disposition Disposition: Home, Self Care Discharge Date/Time: 04/24/23 23:45
== END 2023-04-24 23:45 | disposition home or self-care (01) ==
PROVIDERS: Emergency Provider Emergency Medicine; PCP Family Medicine Geriatric Medicine; Visit Provider Emergency Medicine
DX: H10.33 Unspecified acute conjunctivitis, bilateral (principal); E11.9 Type 2 diabetes mellitus without complications; I10 Essential (primary) hypertension; E78.2 Mixed hyperlipidemia; Z79.899 Other long term (current) drug therapy; Z79.84 Long term (current) use of oral hypoglycemic drugs; Z79.82 Long term (current) use of aspirin; K21.9 Gastro-esophageal reflux disease without esophagitis; Z96.659 Presence of unspecified artificial knee joint; Z90.49 Acquired absence of other specified parts of digestive tract
CPT/HCPCS: 99282

== ENCOUNTER → 2023-05-11 | Outpatient (CLI) | payer MEDICARE, OTHER, SELFPAY ==
[2023-05-11 12:26] LABS: Absolute Lymphocyte Count 1.71 X10^3/uL (0.83-4.51); Absolute Neutrophil Count 3.8 X10^3/uL (2.0-7.7); Basophil# 0.05 X10^3/uL; Basophil% 0.8 % (0-1); Eosinophil# 0.26 X10^3/uL; Eosinophils% 4.1 % (0-5); Hematocrit 43.1 % (40-54); Hemoglobin 14.1 g/dL (13.0-16.5); Lymphocyte # 1.71 X10^3/ul (0.83-4.51); Lymphocyte % 26.8 % (19-41); Mean Corp Hgb Conc 32.7 g/dL (32-36); Mean Corpuscular Hgb 31.5 pg (27.0-32.0); Mean Corpuscular Volume 96.2 fL (80-94); Mean Platelet Vol. 9.8 fl (6.2-12.0); Monocyte# 0.47 X10^3/uL; Monocyte% 7.4 % (0-10); NRBC Flagged by Analyzer 0 % (0-5); Neutrophil # 3.84 X10^3/uL (2.7-7.7); Neutrophil % 60.3 % (47-70); Platelet Count 365 K/mm3 (150-450); RBC Distribution Width CV 12.1 % (11.6-14.6); RBC Distribution Width SD 42.7 fl (35.1-43.9); Red Blood Count 4.48 M/mm3 (4.6-6.2); White Blood Count 6.4 K/mm3 (4.4-11.0)
[2023-05-11 13:39] LABS: ALB/GLOB Ratio 0.8 RATIO (0.9-2.4); AST(SGOT) 22 U/L (15-37); Alanine Aminotransfer ALT/SGPT 35 U/L (16-61); Albumin, Serum 3.4 g/dL (3.2-5.0); Alkaline Phosphatase 83 U/L (45-117); Anion Gap 7 (5-15); BUN 35 mg/dL (7-18); BUN/Creat Ratio 26.1 RATIO (10-20); Calcium,Total 9.2 mg/dL (8.5-10.1); Chloride 105 mmol/L (98-107); Cholesterol 144 mg/dL (200); Creatinine, Serum 1.34 mg/dL (0.70-1.30); EST Glomerular Filtration Rate 56 mL/min (>60); Est Glom Filt Rate - Afr Amer 68 mL/min (>60); Globulin 4.5 g/dL (2.2-4.2); Glucose 233 mg/dL (74-106); High Density Lipoprotein 48 mg/dL; PSA,Total - Annual Screen 1.54 ng/mL (0.00-4.00); Potassium 4.7 mmol/L (3.5-5.1); Protein, Total 7.9 g/dL (6.4-8.2); Sodium Level 137 mmol/L (136-145); Triglycerides 198 mg/dL; Very Low Density Lipoprotein 40 mg/dL (5-40)
[2023-05-11 13:41] LABS: Microalbumin,Random Urine 91.7 mg/L (NO RANGE EST.)
[2023-05-11 14:22] LABS: Hemoglobin A1c 8.5 % (3.8-5.6)
== END | disposition home or self-care (01) ==
LOC: BIMLAB 08:23
PROVIDERS: PCP Internal Medicine; Referring Provider Internal Medicine; Visit Provider Internal Medicine
DX: E11.9 Type 2 diabetes mellitus without complications (principal); I10 Essential (primary) hypertension; N40.0 Benign prostatic hyperplasia without lower urinary tract symptoms
CPT/HCPCS: 36415; 80053; 80061; 82043; 82570; 83036; 84153; 85025; G0103

== ENCOUNTER → 2023-12-03 | Outpatient (CLI) | payer MEDICARE, OTHER, SELFPAY ==
[2023-12-03 17:04] LABS: AST(SGOT) 17 U/L (15-37); Alanine Aminotransfer ALT/SGPT 23 U/L (16-61); Albumin, Serum 3.8 g/dL (3.2-5.0); Alkaline Phosphatase 67 U/L (45-117); Anion Gap 5 (5-15); BUN 42 mg/dL (7-18); BUN/Creat Ratio 35.3 RATIO (10-20); Calcium,Total 9.7 mg/dL (8.5-10.1); Chloride 104 mmol/L (98-107); Creatinine, Serum 1.19 mg/dL (0.70-1.30); EST Glomerular Filtration Rate 64 mL/min (>60); Est Glom Filt Rate - Afr Amer 78 mL/min (>60); Globulin 3.7 g/dL (2.2-4.2); Glucose 103 mg/dL (74-106); Potassium 4.4 mmol/L (3.5-5.1); Protein, Total 7.5 g/dL (6.4-8.2); Sodium Level 137 mmol/L (136-145)
[2023-12-03 17:22] LABS: Microalbumin,Random Urine 17.9 mg/L (NO RANGE EST.); Microalbumin:Creatinine Ratio 16.9 mg/g CRE (<30 mg/g CRE)
== END | disposition home or self-care (01) ==
LOC: BIMLAB 15:02
PROVIDERS: PCP Internal Medicine; Visit Provider Internal Medicine
DX: E11.69 Type 2 diabetes mellitus with other specified complication (principal); I10 Essential (primary) hypertension
CPT/HCPCS: 36415; 80053; 82043; 82570

== ENCOUNTER → 2024-06-10 | Outpatient (CLI) | payer MEDICARE, OTHER, SELFPAY ==
[2024-06-10 12:32] LABS: Absolute Lymphocyte Count 1.52 X10^3/uL (0.83-4.51); Absolute Neutrophil Count 2.4 X10^3/uL (2.0-7.7); Basophil# 0.04 X10^3/uL; Basophil% 0.9 % (0-1); Eosinophils% 2.3 % (0-5); Hematocrit 38.4 % (40-54); Hemoglobin 12.4 g/dL (13.0-16.5); Lymphocyte # 1.52 X10^3/ul (0.83-4.51); Lymphocyte % 34.2 % (19-41); Mean Corp Hgb Conc 32.3 g/dL (32-36); Mean Platelet Vol. 9.6 fl (6.2-12.0); Monocyte# 0.37 X10^3/uL; Monocyte% 8.3 % (0-10); NRBC Flagged by Analyzer 0 % (0-5); Neutrophil % 54.1 % (47-70); Platelet Count 340 K/mm3 (150-450); RBC Distribution Width CV 12.9 % (11.6-14.6); RBC Distribution Width SD 43.8 fl (35.1-43.9); Red Blood Count 4.13 M/mm3 (4.6-6.2); White Blood Count 4.4 K/mm3 (4.4-11.0)
[2024-06-10 12:56] LABS: ALB/GLOB Ratio 0.9 RATIO (0.9-2.4); AST(SGOT) 14 U/L (15-37); Alanine Aminotransfer ALT/SGPT 17 U/L (16-61); Albumin, Serum 3.6 g/dL (3.2-5.0); Alkaline Phosphatase 72 U/L (45-117); Anion Gap 5 (5-15); BUN 30 mg/dL (7-18); BUN/Creat Ratio 21.7 RATIO (10-20); Calcium,Total 9.6 mg/dL (8.5-10.1); Chloride 103 mmol/L (98-107); Cholesterol 130 mg/dL (200); Creatinine, Serum 1.38 mg/dL (0.70-1.30); EST Glomerular Filtration Rate 54 mL/min (>60); Est Glom Filt Rate - Afr Amer 65 mL/min (>60); Globulin 3.8 g/dL (2.2-4.2); Glucose 117 mg/dL (74-106); High Density Lipoprotein 69 mg/dL; PSA,Total - Annual Screen 1.14 ng/mL (0.00-4.00); Potassium 3.9 mmol/L (3.5-5.1); Protein, Total 7.4 g/dL (6.4-8.2); Sodium Level 136 mmol/L (136-145); Triglycerides 43 mg/dL; Very Low Density Lipoprotein 9 mg/dL (5-40)
[2024-06-10 15:16] LABS: Ferritin 68 ng/mL (26-388); Iron 92 ug/dL (65-175); Iron Binding Capacity,Total 298 ug/dL (250-450)
== END | disposition home or self-care (01) ==
LOC: BIMLAB 09:26
PROVIDERS: PCP Internal Medicine; Visit Provider Internal Medicine
DX: E11.69 Type 2 diabetes mellitus with other specified complication (principal); N40.0 Benign prostatic hyperplasia without lower urinary tract symptoms; D64.9 Anemia, unspecified; Z12.5 Encounter for screening for malignant neoplasm of prostate
CPT/HCPCS: 36415; 80053; 80061; 82728; 83540; 83550; 84153; 85025; G0103

== ENCOUNTER → 2024-06-28 | Outpatient (CLI) | payer MEDICARE, OTHER, SELFPAY ==
--- NOTE | 2024-06-28 12:12 | STRESSREP_ITS ---
Stress Test Report Date: 06/28/2024 Procedure: Exercise tolerance test/imaging study Indications: Chest pain Consent: Per the patient Procedure: The patient exercised on a Tobin protocol for 7 minutes achieving a peak heart rate of 141 bpm (94% predicted maximal heart rate) with a peak blood pressure 170/68 mmHg and a peak MET capacity of 10.1 METs. The baseline ECG demonstrated sinus rhythm. The peak exercise ECG demonstrated downsloping ST changes in inferior and lateral leads. There were no cardiac dysrhythmias pretest, during exercise, or recovery. The functional capacity was considered good. There was complaints of chest discomfort with exercise, resolved in recovery. The examination was discontinued secondary to target heart rate being achieved and chest discomfort. The patient was injected with 11.6 mCi of technetium 99m Cardiolite and subsequently rest SPECT Cardiolite nuclear imaging was obtained in the horizontal long, vertical long, and short axis views. Post-exercise, the patient was injected with 33.9 mCi of technetium 99m Cardiolite and subsequently stress SPECT Cardiolite nuclear imaging was obtained in the horizontal long, vertical long, and short axis views. A gated Cardiolite study at peak stress was obtained. Rest and stress SPECT Cardiolite nuclear imaging status post realignment demonstrates reversible perfusion defect of the inferior wall. There is end systolic thickening and brightening. The gated Cardiolite study demonstrates myocardial thickening and inward wall motion. The reported LVEF is 69%. Impression: 1. Technically adequate (percent predicted maximal heart rate greater than 85%) exercise tolerance test 2. Peak exercise ECG with ischemic ECG changes. The ECG changes correlated with onset of his chest tightness symptoms 3. There were no cardiac dysrhythmias pretest, during exercise, or recovery 4. Rest and stress SPECT Cardiolite nuclear imaging demonstrate reversible perfusion defect of the inferior wall suggestive of ischemia. 5. The gated Cardiolite study reports an LVEF of %. This note was generated with iHealthation software. It may contain incorrect words, spelling, and punctuation that were not noted in checking the note before signing.
== END | disposition home or self-care (01) ==
LOC: CVS 05:47
PROVIDERS: PCP Internal Medicine; Referring Provider Internal Medicine; Visit Provider Internal Medicine
DX: R07.9 Chest pain, unspecified (principal); I20.9 Angina pectoris, unspecified
CPT/HCPCS: 78452; 93017; A9500; A4216

== ENCOUNTER → 2024-06-29 | Outpatient (CLI) | payer MEDICARE, OTHER, SELFPAY ==
--- NOTE | 2024-06-29 10:38 | RAD_ITS ---
STUDY: X-RAY CHEST REASON FOR EXAM: Male, 73 years old. Chest pain. TECHNIQUE: Frontal and lateral views of the chest. COMPARISON: March 30, 2022 FINDINGS: Low volume inspiration. There is no demonstrated pleural abnormality. Stable borderline cardiomegaly. Normal mediastinum and [place]. Normal visualized pulmonary arteries. Normal visualized aortic arch and descending thoracic aorta. Mild thoracic dextroscoliosis with minimal spondylosis Normal visualized ribs, clavicles, and shoulders. No abnormality of the visualized soft tissue structures of the upper abdomen. RAD/Chest PA and Lateral IMPRESSION: Stable borderline cardiomegaly with no acute finding. Electronically Signed: Nelson Evans MD at 10:56 EDT ,
[2024-06-29 11:25] LABS: Absolute Lymphocyte Count 1.59 X10^3/uL (0.83-4.51); Absolute Neutrophil Count 3.2 X10^3/uL (2.0-7.7); Basophil# 0.02 X10^3/uL; Basophil% 0.4 % (0-1); Eosinophils% 1.9 % (0-5); Hemoglobin 11.9 g/dL (13.0-16.5); Lymphocyte # 1.59 X10^3/ul (0.83-4.51); Lymphocyte % 29.8 % (19-41); Mean Corp Hgb Conc 33.1 g/dL (32-36); Mean Corpuscular Hgb 31.1 pg (27.0-32.0); Mean Platelet Vol. 9.2 fl (6.2-12.0); Monocyte# 0.41 X10^3/uL; Monocyte% 7.7 % (0-10); NRBC Flagged by Analyzer 0 % (0-5); Neutrophil % 59.8 % (47-70); Platelet Count 318 K/mm3 (150-450); RBC Distribution Width CV 13.1 % (11.6-14.6); RBC Distribution Width SD 44.8 fl (35.1-43.9); Red Blood Count 3.83 M/mm3 (4.6-6.2); White Blood Count 5.3 K/mm3 (4.4-11.0)
[2024-06-29 11:32] LABS: International Normalized Ratio 1.1; Prothrombin Time (Protime)PT. 13.9 SECONDS (11.7-14.9)
[2024-06-29 11:51] LABS: Anion Gap 7 (5-15); BUN 30 mg/dL (7-18); BUN/Creat Ratio 23.3 RATIO (10-20); Calcium,Total 9.7 mg/dL (8.5-10.1); Chloride 104 mmol/L (98-107); Creatinine, Serum 1.29 mg/dL (0.70-1.30); EST Glomerular Filtration Rate 58 mL/min (>60); Est Glom Filt Rate - Afr Amer 71 mL/min (>60); Glucose 115 mg/dL (74-106); Potassium 4.4 mmol/L (3.5-5.1); Sodium Level 138 mmol/L (136-145)
== END | disposition home or self-care (01) ==
LOC: RAD 10:35
PROVIDERS: PCP Internal Medicine; Referring Provider Physician Assistant Medical; Visit Provider Physician Assistant Medical
DX: R94.39 Abnormal result of other cardiovascular function study (principal); I20.9 Angina pectoris, unspecified
CPT/HCPCS: 36415; 71046; 80048; 85025; 85610

== ENCOUNTER 2024-07-13 06:55 | Day surgery (SDC) | payer MEDICARE, OTHER, SELFPAY ==
[2024-07-12 08:13] VITALS: BMI 27.6
--- NOTE | 2024-07-15 10:11 | CL.D_ITS ---
Patient Name: JOSE HATHAWAY Study Date: 07/13/2024 Performing: Kelby Seth MD Ht: 69 inches 175.26 cm : 1950 Wt: 187.2 lbs 84.82 kg Age: 73 Gender: male BSA: 2.01 PROCEDURE(S) PERFORMED DC01-(20080)LHC/COR/LV CLINICAL PROFILE AND INDICATIONS Indications: Worsening Angina Heart Failure: None Stress/Imaging Date: 06/17/24 CAD Presentations: Stable angina. CONCLUSIONS Normal coronary arteries Normal LV size, wall motion,and systolic function RECOMMENDATIONS Medical therapy DESCRIPTION OF PROCEDURE The patient arrived to the procedure lab. The risks and benefits of the procedure as well as a full description of our services here and current unavailability of surgical backup were fully explained to the patient and/or their significant other prior to the catheterization. The Timeout was completed, verifying the correct patient and procedure. The patient's procedural site was prepped and draped in the usual fashion. Local anesthetic was given subcutaneously to right radial region with Lidocaine 2%. Using a modified Seldinger technique, arterial access was obtained via the right radial artery, a 6Fr sheath was inserted. Left Coronary Artery selective angiography was performed in multiple views using a 5 Fr. 4.0 Berks[place] catheter. Right Coronary Artery selective angiography was then performed in multiple views using a 5 Fr. 4.0 [place] catheter. Left Ventriculography was performed in MCC[place]OUGH projection using a 5 Fr. Pigtail catheter. LV to AO pullback pressures were then recorded.The arterial sheath was pulled and a TR Band was applied for hemostasis CORONARY ANGIOGRAPHY DOMINANCE: Left Dominant LEFT HEART ASSESSMENT Left Ventricular Ejection Fraction: by LV Gram 60 % Normal LV wall motion Normal Left Ventricular systolic function LEFT MAIN: Angiographically normal LEFT ANTERIOR DESCENDING ARTERY: Mild luminal irregularities CIRCUMFLEX ARTERY: Mild luminal irregularities RIGHT CORONARY ARTERY: No significant disease noted COMPLICATIONS No Complications PROCEDURE MEDICATIONS Versed 1 mg IV Fentanyl 50 mcg IV Benadryl 25 mg IV @ 07/13/2024 13:05:37 Heparin given IA 07/13/2024 12:51:58 Verapamil 2.5mg, 3000 units of Heparin given IA 07/13/2024 12:51:58 SUMMARY OF HEMODYNAMIC DATA Time AIR REST ECG 11:49:49 ECG 12:31:42 AO 159/80 (113) SA 12:55:34 LV 146/14, 25 12:59:40 LV 131/15, 19 12:59:48 LV 150/42, 0 13:00:12 LV 144/15, 25 13:00:20 LVp 140/14, 24 13:00:24 AOp 149/69 (102) 13:00:31 AIR REST 13:13:18 Signed By Kelby Seth MD On 07/15/2024 10:10:38 Signed By Kelby Seth MD On 07/13/2024 13:15:42 Kelby Seth MD
== END 2024-07-13 14:59 | disposition home or self-care (01) ==
PROVIDERS: PCP Internal Medicine; Referring Provider Internal Medicine Cardiovascular Disease; Visit Provider Internal Medicine Cardiovascular Disease
DX: I20.9 Angina pectoris, unspecified (principal); R94.39 Abnormal result of other cardiovascular function study; R07.9 Chest pain, unspecified; I10 Essential (primary) hypertension; E78.2 Mixed hyperlipidemia; Z82.49 Family history of ischemic heart disease and other diseases of the circulatory system
CPT/HCPCS: 93458; 99152; J7040; Q9967; C1769; C1894

== ENCOUNTER → 2024-08-18 | Outpatient (CLI) | payer MEDICARE, OTHER, SELFPAY | END | disposition home or self-care (01) | LOC: CVS 08-19 10:08 | PROVIDERS: PCP Internal Medicine; Referring Provider Nurse Practitioner Gerontology; Visit Provider Nurse Practitioner Gerontology | DX: R00.2 Palpitations (principal) ==

== ENCOUNTER → 2024-12-16 | Outpatient (CLI) | payer MEDICARE, OTHER, SELFPAY ==
[2024-12-16 11:44] LABS: Absolute Lymphocyte Count 1.84 X10^3/uL (0.83-4.51); Basophil# 0.05 X10^3/uL; Basophil% 0.7 % (0-1); Eosinophil# 0.41 X10^3/uL; Hematocrit 41.2 % (40-54); Hemoglobin 13.7 g/dL (13.0-16.5); Lymphocyte # 1.84 X10^3/ul (0.83-4.51); Lymphocyte % 26.8 % (19-41); Mean Corp Hgb Conc 33.3 g/dL (32-36); Mean Corpuscular Hgb 31.1 pg (27.0-32.0); Mean Corpuscular Volume 93.4 fL (80-94); Mean Platelet Vol. 9.3 fl (6.2-12.0); Monocyte# 0.53 X10^3/uL; Monocyte% 7.7 % (0-10); NRBC Flagged by Analyzer 0 % (0-5); Neutrophil # 4.01 X10^3/uL (2.7-7.7); Neutrophil % 58.5 % (47-70); Platelet Count 406 K/mm3 (150-450); RBC Distribution Width CV 12.9 % (11.6-14.6); RBC Distribution Width SD 44.2 fl (35.1-43.9); RET-HE 35.4 pg (30-35); Red Blood Count 4.41 M/mm3 (4.6-6.2); Reticulocyte Count 1.04 % (0.5-1.5); White Blood Count 6.9 K/mm3 (4.4-11.0)
[2024-12-16 12:12] LABS: Ferritin 124 ng/mL (37-417); Iron 92 ug/dL (65-175); LDH 135 U/L (87-241)
[2024-12-21 13:08] LABS: Alpha-1-Globulins 0.2 g/dL (0.0-0.4); Alpha-2-Globulins 0.8 g/dL (0.4-1.0); Endomysial Antibody IgA Negative (Negative); Gamma Globulin 1.6 g/dL (0.4-1.8); Immunoglobulin A 68 mg/dL (61-437); Immunoglobulin G 1748 mg/dL (603-1613); Immunoglobulin M 38 mg/dL (15-143); PROEL- TOTAL PROTEIN 7.6 g/dL (6.0-8.5); t-Transglutaminase IgA <2 U/mL (0-3)
== END | disposition home or self-care (01) ==
LOC: LAB 11:00
PROVIDERS: PCP Internal Medicine; Referring Provider Internal Medicine Gastroenterology; Visit Provider Internal Medicine Gastroenterology
DX: D64.9 Anemia, unspecified (principal)
CPT/HCPCS: 36415; 82728; 82784; 83516; 83540; 83615; 84165; 85025; 85045; 86255; 86334

== ENCOUNTER → 2024-12-29 | Outpatient (CLI) | payer MEDICARE, OTHER, SELFPAY ==
--- NOTE | 2024-12-29 08:30 | BD_ITS ---
PROCEDURE: DEXA BONE DENSITY STUDY 12/29/2024 REASON FOR EXAM: OSTEOPENIA M, age 74 y/o . Postmenopausal. TECHNIQUE: DXA scan of the lumbar spine and left hip, using make and model. REFERENCE LINKS: ISCD Adult Positions FINDINGS: Lumbar Spine (L1-L4): g/cm2 (1.280)/T-score (1.9)/Z-score (2.8) findings are suggestive of normal with a low fracture risk. Left Femur Total: g/cm2 (1.021)/T-score (-0.1)/Z-score (0.6) Left Femoral Neck: g/cm2 (0.804)/T-score (-0.9)/Z-score (0.3) Right Femur Total: g/cm2 (0.998)/T-score (-0.2)/Z-score (0.5) Right Femoral Neck: g/cm2 (0.814)/T-score (-0.9)/Z-score (0.4) BD/Dexa Bone Density Study IMPRESSION: The patient is considered normal as outlined below according to [employer] an[employer] (WHO) criteria with a low fracture risk. Reading Location: [place] [id number]
== END | disposition home or self-care (01) ==
LOC: OPBD 08:22
PROVIDERS: PCP Internal Medicine; Referring Provider Physician Assistant; Visit Provider Physician Assistant
DX: M85.88 Other specified disorders of bone density and structure, other site (principal)
CPT/HCPCS: 77080

== ENCOUNTER → 2025-02-09 | Outpatient (CLI) | payer MEDICARE, OTHER, SELFPAY ==
--- NOTE | 2025-02-09 09:15 | RAD_ITS ---
PROCEDURE: BONE SURVEY COMP(AXIAL APPEND) 02/09/2025 REASON FOR EXAM: MGUS FINDINGS: Skull: No lytic or blastic bone lesion. C-T-L Spine: No evidence of compression fracture. No lytic or blastic bone lesion. Degenerative disc disease. Ribs: Unremarkable. AP Pelvis: Unremarkable. AP Humeri: No lytic or blastic bone lesion. AP Femurs: No lytic or blastic bone lesion. RAD/Bone Survey Comp(Axial&Append) IMPRESSION: NEGATIVE BONE SURVEY. Reading Location: [id number]
== END | disposition home or self-care (01) ==
LOC: RAD 08:43
PROVIDERS: PCP Internal Medicine; Referring Provider Internal Medicine Medical Oncology; Visit Provider Internal Medicine Medical Oncology
DX: D47.2 Monoclonal gammopathy (principal)
CPT/HCPCS: 77075

== ENCOUNTER → 2025-03-20 | Outpatient (CLI) | payer MEDICARE, OTHER, SELFPAY ==
--- OUTSIDE RECORDS SUMMARY | 2025-03-20 07:25 | XMS RPT_ITS | CCD ---
Author Organization [facility] Care Team Providers Care Rug Dry Room Attendant Name Role Phone Dr. Adam Alex Chi Primary Care Provider Dr. Adam Alex Chi Referring Provider Friend, Dr. Jones Attending Provider [phone] Joe [employer] NURSE, [employer] NURSE-C Elaine Blank Attending Provider Dr. Sarmad Muñoz Attending Provider [phone] Sarmad Muñoz Other Provider Dr. Adam Alex Chi Primary Care Provider Dr. Adam Alex Chi Referring Provider Dr. Sarmad Muñoz Referring Provider Dr. French Buchanan Attending Provider Dr. French Buchanan Referring Provider Dr. French Buchanan Other Provider Dr. Tobin Castellon Attending Provider Blanche [employer] NURSE, [employer] NURSE-C Raysa Attending Provider FriendDr. Jones Attending Provider [phone] FriendDr. Jones Other Provider Dr. Reynaldo Schmitt Emergency Provider Dr. Adam Lerma Admit Provider Dr. Adam Lerma Attending Provider Dr. Adam Lerma Other Provider Dr. Sebastian Keith Attending Provider Dr. Sebastian Keith Other Provider Jason [employer] NURSE, [employer] NURSE-C Max Narayan Attending Provider Isai, Dr. Adam Loomis Primary Care Provider Isai, Dr. Adam Loomis Referring Provider Dr. Sarmad Muñoz Attending Provider Joe [employer] NURSE, [employer] NURSE-C Elaine Blank Attending Provider Isai, Dr. Adam Loomis Primary Care Provider Isai, Dr. Adam Loomis Referring Provider Dr. French Buchanan Attending Provider Dr. Timmy Floyd Attending Provider Mariel, Dr. Warner Primary Care Provider [phone] Mariel, Dr. Warner Attending Provider [phone] Mariel, Dr. Warner Referring Provider [phone] Isai, Dr. Adam Loomis Referring Provider Dr. Robert Flores Attending Provider [phone] Mariel BULL, Dr. Warner Primary Care Provider Mariel BULL, Dr. Warner Referring Provider [phone] Sarita Damian Attending Provider Quirino Hamlin Attending Provider Sean Armas Attending Provider Dorinda BULL, Dr. Lama Attending Provider [phone] Dr. Robert Flores DO Attending Provider Dr. Robert Flores DO Referring Provider Sean Armas Referring Provider Mariel BULL, Dr. Warner Attending Provider [phone] Dr. Miles Armendariz MD Attending Provider Dr. Miles Armendariz MD Referring Provider Mariel BULL, Dr. Warner Primary Care Provider Mariel BULL, Dr. Warner Referring Provider Brown [employer] NURSEStephon[employer]una Attending Provider [phone] Oleghe, Efewongbe Referring Unavailable Oleghe, Efewongbe Primary Care Unavailable Sarita Damian Attending Unavail able Oleghe, Efewongbe Referring Unavailable Oleghe, Efewongbe Primary Care Unavailable Quirino Jerez Attending Unavailable Oleghe, Efewongbe Primary Care Unavailable Oleghe, Efewongbe Referring Unavailable Luna Dasilva Attending Unavailable Oleghe, Efewongbe Referring Unavailable Sarita Damian Attending Unavail able Oleghe, Efewongbe Primary Care Unavailable Oleghe, Efewongbe Primary Care Unavailable Miles Armendariz Referring Unavailable Miles Armendariz Attending Unavailable Oleghe, Efewongbe Primary Care Unavailable Kathleen Grande NP Referring Unavailable Kathleen Grande NP Attending Unavailable Oleghe, Efewongbe Primary Care Unavailable Friend, Robert Attending Unavailable Friend, Robert Referring Unavailable Oleghe, Efewongbe Primary Care Unavailable Sean Armas Attending Unavailable Sean Armas Referring Unavailable Sarita Damian Attending Unavail able Sarita Damian Referring Unavail able Oleghe, Efewongbe Primary Care Unavailable Oleghe, Efewongbe Primary Care Unavailable Oleghe, Efewongbe Attending Unavailable Oleghe, Efewongbe Referring Unavailable Oleghe, Efewongbe Primary Care Unavailable Kathleen Grande NP Attending Unavailable Oleghe, Efewongbe Primary Care Unavailable Oleghe, Efewongbe Referring Unavailable Friend, Robert Attending Unavailable Oleghe, Efewongbe Primary Care Unavailable Ayad Sethril Attending Unavailable Kathleen Grande NP Referring Unavailable Oleghe, Efewongbe Primary Care Unavailable DorindaAyadKelby Attending Unavailable Dorinda, Hammond Referring Unavailable Oleghe, Efewongbe Referring Unavailable Oleghe, Efewongbe Consulting Unavailable Oleghe, Efewongbe Primary Care Unavailable Berny, Keiko Attending Unavailable Oleghe, Efewongbe Referring Unavailable Oleghe, Efewongbe Primary Care Unavailable Sean Armas Attending Unavailable Oleghe, Efewongbe Referring Unavailable Oleghe, Efewongbe Primary Care Unavailable Sean Armas Attending Unavailable Oleghe, Efewongbe Primary Care Unavailable Kelby Seth Attending Unavailable Oleghe, Efewongbe Primary Care Unavailable Oleghe, Efewongbe Referring Unavailable Oleghe, Efewongbe Attending Unavailable Oleghe, Efewongbe Referring Unavailable Oleghe, Efewongbe Primary Care Unavailable Era Mason Attending Unavailable Oleghe, Efewongbe Referring Unavailable Oleghe, Efewongbe Primary Care Unavailable Oleghe, Efewongbe Attending Unavailable Oleghe, Efewongbe Referring Unavailable Oleghe, Efewongbe Attending Unavailable Oleghe, Efewongbe Primary Care Unavailable Oleghe, Efewongbe Primary Care Unavailable Ra Shivanihsaan Referring Unavailable Miles Armendariz Attending Unavailable Allergies Allergy Classification Reported Allergen(s) Allergy Type Date of Onset Reaction(s) Facility (17 sources) Amoxicillin Drug Allergy 2 Swelling [facility] (17 sources) HYDROcodone Drug Allergy 2 Other [facility] (17 sources) Nitroglycerin Drug Allergy 2 SEVERE HYPOTENSION [facility] (1 source) Amoxicillin Drug Allergy 5 [facility] (1 source) HYDROcodone Drug Allergy 5 [facility] (1 source) Nitroglycerin Drug Allergy 5 [facility] Medications Current Medications Medication Drug Class(es) Dates Sig (Normalized) Sig (Original) amLODIPine 5 mg oral tablet (4 sources) Dihydropyridine Calcium Channel Rafy Start: 07-13-2024 take 1 tablet by mouth once daily Amlodipine 5 mg tablet Active 5 mg PO daily July 13, 2024 12:00am aspirin 81 mg delayed release oral tablet (20 sources) Platelet Aggregation Inhibitor, Nonsteroidal Anti-inflammatory Drug Start: 04-03-2022 take 1 tablet by mouth once daily Aspirin (Adult Aspirin Regimen) 81 mg tablet,delayed release (DR/EC) Active 81 mg PO daily April 03, 2022 12:00am Start: 11-18-2017 End: 04-03-2022 take 1 tablet by mouth once daily Aspirin 325 mg tablet Discontinued 325 mg PO daily November 18, 2017 1:00am April 03, 2022 11:35am Start: 11-28-2016 End: 12-20-2016 take 1 tablet by mouth once daily Aspirin 325 MG tablet Discontinued 325 mg PO DAILY@0800 November 28, 2016 1:00am December 20, 2016 12:24pm atorvastatin 40 mg oral tablet (7 sources) HMG-CoA Reductase Inhibitor Start: 11-29-2024 End: 01-02-2025 take 1 tablet by mouth once daily in the evening Atorvastatin 40 mg tablet Active 40 mg PO EVERY EVENING January 02, 2025 3:43pm cholecalciferol 0.025 mg oral tablet (17 sources) Vitamin D Start: 08-13-2021 take 1 tablet by mouth once daily Cholecalciferol (Vitamin D3) (Vitamin D3) 25 mcg (1,000 unit) Tablet Active 25 ug PO DAILY August 13, 2021 12:00am Compress.Melanie Pendleton,Reg,Lrg misc (4 sources) Start: 03-03-2024 Compress.James Pendletone,Reg,Lrg misc Active 0 .MEDSUPPLY 2 March 03, 2024 12:00am wear daily for venous insufficiency 20-30 mmHg 30 actuat fluticasone furoate 0.1 mg/actuat dry powder inhaler (13 sources) Corticosteroid Start: 12-02-2024 End: 03-13-2025 take 100 ug by inhalation once daily as needed Fluticasone Furoate (Arnuity Ellipta) 100 mcg/actuation blister with device Active 1 NMA INHALATION daily as needed March 13, 2025 1:42pm Start: 05-15-2022 End: 12-03-2023 take 50 ug nasal route once daily Fluticasone Propionate (Flonase Allergy Relief) 50 mcg/actuation spray,suspension Discontinued 2 NMA INTRANASAL daily May 15, 2022 12:00am December 03, 2023 3:10pm administer into each nostril Start: 05-15-2022 End: 12-03-2023 take 1 spray(s) nasal route once daily Fluticasone Propionate (Flonase Allergy Relief) 50 mcg/actuation spray,suspension Discontinued 2 SPRAY INTRANASAL daily May 14, 2022 11:00pm December 03, 2023 2:10pm administer into each nostril MDI spacer (4 sources) Start: 12-01-2024 MDI spacer Act phil 0 .Route .MEDSUPPLY 1 December 01, 2024 1:00am To be used with inhaler Multivitamin preparation (13 sources) Start: 08-13-2021 take 1 tablet by mouth once daily Multivitamin Active 1 TABLET PO DAILY August 13, 2021 8:19am Start: 08-13-2021 take 1 tablet by gracie th once daily Multivitamin Active 1 TABLET PO DAILY August 12, 2021 11:00pm Start: 08-13-2021 take 1 tablet by gracie th once daily Multivitamin Active 1 TABLET PO DAILY August 13, 2021 12:00am Multivitamin Tablet (4 sources) Start: 08-13-2021 Multivitamin T ablet Active 1 {tbl} PO DAILY August 13, 2021 12:00am Completed/Discontinued Medications Medication Drug Class(es) Dates Sig (Normalized) Sig (Original) [id number] 200 actuat albuterol 0.09 mg/actuat metered dose inhaler (20 sources) beta2-Adrenergic Agonist Start: 01-20-2022 take 1 puff(s) by inhalation every four hours Albuterol Sulfate Active 2 PUFF INHALATION Q4H 8.5 January 20, 2022 2:38pm administer with spacer Start: 01-20-2022 End: 12-03-2023 Albuterol Sulfate 90 mcg/act uation HFA aerosol inhaler Discontinued 2 NMA INHALATION Q4H as needed for shortness of breath or wheezing 8.5 March 23, 2023 10:22am December 03, 2023 3:10pm administer with spacer Start: 01-20-2022 End: 12-03-2023 take 1 puff(s) by inhalation every four hours Albuterol Sulfate Discontinued 2 PUFF INHALATION Q4H 8.5 March 23, 2023 9:22am December 03, 2023 2:10pm administer with spacer azithromycin 250 mg oral tablet (9 sources) Macrolide Antimicrobial Start: 11-21-2024 End: 12-01-2024 Azithromycin 250 mg tablet Discontinued 0 PO .COMPLEX 6 November 21, 2024 1:00am December 01, 2024 2:26pm For 250 mg dose pack: take 500 mg today (day 1), then 250 mg for 4 days (days 2-5) PO Start: 07-20-2023 End: 08-04-2023 take 2-5 tablets by mouth once daily Azithromycin 250 mg tablet Discontinued 0 PO .COMPLEX July 20, 2023 12:00am August 04, 2023 8:30am take 500 mg today (day 1), then 250 mg for 4 days (days 2-5) PO benzonatate 200 mg oral capsule (4 sources) Non-narcotic Antitussive Start: 11-21-2024 End: 12-21-2024 take 1 capsule by mouth three times daily as needed for cough Benzonatate 200 mg capsule Discontinued 200 mg PO THREE TIMES A DAY as needed for cough November 21, 2024 1:00am December 21, 2024 3:43pm bisacodyl 5 mg delayed release oral tablet (17 sources) Stimulant Laxative Start: 08-28-2021 End: 12-18-2021 take 1 tablet by mouth once Bisacodyl 5 mg tablet,delayed release (DR/EC) Discontinued 5 mg PO ONCE 8 August 28, 2021 1:00am December 18, 2021 10:46am take as directed for bowel prep Budesonide-Glycopy r-Formoterol (11 sources) Corticosteroid, beta2-Adrenergic Agonist Start: 06-10-2024 End: 08-09-2024 Budesonide-Glycopy r-Formoterol (Breztri Aerosphere) 160-9-4.8 mcg/actuation HFA aerosol inhaler Discontinued NMA INHALATION June 10, 2024 12:00am August 09, 2024 8:33am Start: 12-24-2022 End: 03-23-2023 Oivarfwqom-Rsvimqvu-Npvinclq ol (Breztri Aerosphere) 160-9-4.8 mcg/actuation HFA aerosol inhaler Discontinued 2 NMA INHALATION TWICE A DAY 10.7 December 24, 2022 12:00am March 23, 2023 10:23am Start: 12-24-2022 End: 03-23-2023 Dlpznvffhf-Qrhtcknx-Zaogjyyy ol (Breztri Aerosphere) 160-9-4.8 mcg/actuation HFA aerosol inhaler Discontinued 2 INH INHALATION TWICE A DAY 10.7 December 23, 2022 11:00pm March 23, 2023 9:23am Start: 12-24-2022 End: 03-23-2023 Eiuaghdcio-Mlojumee-Esuwekqe ol (Breztri Aerosphere) 160-9-4.8 mcg/actuation HFA aerosol inhaler Discontinued 2 INH INHALATION TWICE A DAY 10.7 December 24, 2022 12:00am March 23, 2023 10:23am cetirizine hydrochloride 10 mg oral tablet (20 sources) Histamine-1 Receptor Antagonist Start: 05-15-2022 End: 11-06-2023 take 1 tablet by mouth once daily Cetirizine (All Day Allergy (Cetirizine)) 10 mg tablet Discontinued 10 mg PO DAILY July 20, 2023 8:11am November 06, 2023 9:56am ciprofloxacin 500 mg oral tablet (17 sources) Quinolone Antimicrobial Start: 12-20-2016 End: 11-18-2017 take 1 tablet by mouth twice daily Ciprofloxacin Hcl 500 MG tablet Discontinued 500 mg PO TWICE A DAY 14 December 20, 2016 1:00am November 18, 2017 1:43pm dexamethasone 1 mg/ml / neomycin 3.5 mg/ml / polymyxin b [id number] unt/ml ophthalmic suspension (7 sources) Aminoglycoside Antibacterial, Polymyxin-class Antibacterial, Corticosteroid Start: 04-24-2023 End: 08-04-2023 Neomycin-Polymyxin B-Dexameth (Maxitrol) 3.5mg/mL-10,000 unit/mL-0.1 % drops,suspension Discontinued 2 NMA EACH EYE 4 TIMES DAILY 5 April 24, 2023 12:00am August 04, 2023 8:29am Start: 04-24-2023 End: 08-04-2023 Neomycin-Polymyxin B-Dexamet h (Maxitrol) 3.5mg/mL-10,000 unit/mL-0.1 % drops,suspension Discontinued 2 DRP EACH EYE 4 TIMES DAILY 5 April 23, 2023 11:00pm August 04, 2023 7:29am Fluticasone Propionate 110 mcg/actuation HFA aerosol inhaler (4 sources) Start: 12-01-2024 End: 12-02-2024 Fluticasone Propionate 110 mcg/actuation HFA aerosol inhaler Discontinued 2 NMA INHALATION TWICE A DAY December 01, 2024 1:00am December 02, 2024 10:00am administer with spacer: Rinse mouth after each use glimepiride 2 mg oral tablet (20 sources) Sulfonylurea Start: 05-11-2023 End: 01-02-2025 take 1 tablet by mouth once daily Glimepiride 2 mg tablet Discontinued 2 mg PO DAILY 30 November 29, 2024 11:38am January 02, 2025 3:43pm Start: 05-11-2023 End: 12-03-2023 take 4 mg by mouth once daily in the morning, then take 2 mg by mouth in the evening Glimepiride Discontinued 6 MG PO DAILY 270 90 May 12, 2023 10:50am December 03, 2023 2:10pm Take 4 mg in a.m. and 2 mg p.m. Start: 04-03-2022 End: 05-11-2023 take 1 tablet by mouth twice daily Glimepiride 2 mg tablet Discontinued 2 mg PO TWICE A DAY April 03, 2022 12:00am May 11, 2023 5:17pm Start: 11-28-2016 End: 04-03-2022 take 2 mg by mouth twice daily Glimepiride 4 MG tablet Discontinued 2 mg PO TWICE A DAY November 28, 2016 1:00am April 03, 2022 10:41am Start: 11-28-2016 End: 04-03-2022 take 2 mg by mouth twice daily Glimepiride Discontinue d 2 MG PO TWICE A DAY November 28, 2016 12:00am April 03, 2022 9:41am lactulose 667 mg/ml oral solution (17 sources) Osmotic Laxative Start: 09-18-2021 End: 12-18-2021 take 20 g by mouth twice daily for diarrhea Lactulose 20 gram/30 mL solution Discontinued 20 g PO TWICE A DAY 1199September 18, 2021 1:00am December 18, 2021 10:50am hold for diarrhea linaclotide 0.072 mg oral capsule (17 sources) Guanylate Cyclase-C Agonist Start: 09-02-2021 End: 12-18-2021 take 1 capsule by mouth once daily Linaclotide (Linzess) 72 mcg capsule Discontinued 72 ug PO DAILY September 02, 2021 1:00am December 18, 2021 10:46am lisinopril 20 mg oral tablet (20 sources) Angiotensin Converting Enzyme Inhibitor Start: 11-28-2016 End: 08-09-2024 take 1 tablet by mouth once daily Lisinopril 20 mg tablet Discontinued 20 mg PO DAILY April 26, 2024 10:37am August 09, 2024 8:51am magnesium oxide 400 mg oral tablet (17 sources) Start: 09-18-2021 End: 12-18-2021 take 1 tablet by mouth once daily Magnesium Oxide 400 mg (241.3 mg magnesium) tablet Discontinued 400 mg PO DAILY September 18, 2021 1:00am December 18, 2021 10:46am Sodium,Potassium,M ag Sulfates (20 sources) Start: 08-28-2021 End: 08-28-2021 Sodium,Potassium,M ag Sulfates (Suprep Bowel Prep Kit) 17.5-3.13-1.6 gram recon soln Discontinued 480 mL PO every 10 to 20 minutes 354 August 28, 2021 7:49am August 28, 2021 4:48pm Start: 08-28-2021 End: 08-28-2021 Sodium,Potassium,Mag Sulfate s (Suprep Bowel Prep Kit) 17.5-3.13-1.6 gram recon soln Discontinued 480 ML PO every 10 to 20 minutes 354 August 28, 2021 6:49am August 28, 2021 3:48pm Start: 08-28-2021 End: 08-28-2021 Sodium,Potassium,Mag Sulfate s (Suprep Bowel Prep Kit) 17.5-3.13-1.6 gram recon soln Discontinued 480 ML PO every 10 to 20 minutes 354 August 28, 2021 7:49am August 28, 2021 4:48pm Start: 08-08-2021 End: 08-28-2021 Sodium,Potassium,Mag Sulfate s (Suprep Bowel Prep Kit) 17.5-3.13-1.6 gram recon soln Discontinued 480 ML PO every 10 to 20 minutes 354 August 08, 2021 2:30pm August 28, 2021 7:50am Start: 08-08-2021 End: 08-28-2021 Sodium,Potassium,Mag Sulfate s (Suprep Bowel Prep Kit) 17.5-3.13-1.6 gram recon soln Discontinued 480 mL PO every 10 to 20 minutes 354 August 08, 2021 12:00am August 28, 2021 7:50am Start: 08-08-2021 End: 08-28-2021 Sodium,Potassium,Mag Sulfate s (Suprep Bowel Prep Kit) 17.5-3.13-1.6 gram recon soln Discontinued 480 ML PO every 10 to 20 minutes 354 August 07, 2021 11:00pm August 28, 2021 6:50am Start: 08-08-2021 End: 08-28-2021 Sodium,Potassium,Mag Sulfate s (Suprep Bowel Prep Kit) 17.5-3.13-1.6 gram recon soln Discontinued 480 ML PO every 10 to 20 minutes 354 August 08, 2021 12:00am August 28, 2021 7:50am mesalamine 1200 mg delayed release oral tablet (20 sources) Aminosalicylate Start: 09-18-2021 End: 11-15-2021 take 2 tablets by mouth once daily Mesalamine 1.2 gram tablet,delayed release (DR/EC) Discontinued 2.4 g PO DAILY 112 September 20, 2021 11:09am November 14, 2021 1:00am November 15, 2021 1:03am Start: 09-18-2021 End: 11-15-2021 take 2.4 g by mouth once daily Mesalamine Discontinued 2.4 GM PO DAILY 112 September 20, 2021 10:09am November 15, 2021 12:03am metFORMIN hydrochloride 1000 mg oral tablet (20 sources) Biguanide Start: 11-28-2016 End: 01-04-2025 take 1 tablet by mouth twice daily at mealtime Metformin 1,000 mg tablet Discontinued 1000 mg PO TWICE DAILY WITH MEALS 60 November 29, 2024 11:38am January 04, 2025 10:20am metoprolol tartrate 25 mg oral tablet (20 sources) beta-Adrenergic Rafy Start: 01-02-2022 End: 08-04-2023 take 1 tablet by mouth twice daily Metoprolol Tartrate 25 mg tablet Discontinued 25 mg PO TWICE A DAY 180 January 16, 2022 3:36pm August 04, 2023 8:29am Start: 12-16-2021 End: 01-02-2022 Metoprolol Tartrate 25 mg ta blet Discontinued 12.5 mg PO TWICE A DAY December 16, 2021 1:00am January 02, 2022 12:17pm Start: 12-16-2021 End: 01-02-2022 take 12.5 mg by mouth twice daily Metoprolol Tartrate Discontinued 12.5 MG PO TWICE A DAY December 16, 2021 12:00am January 02, 2022 11:17am Mometasone-Formoterol (Duler a) 200-5 mcg/actuation HFA aerosol inhaler (14 sources) Start: 03-23-2023 End: 08-04-2023 Mometasone-Formoterol (Duler a) 200-5 mcg/actuation HFA aerosol inhaler Discontinued 2 NMA INHALATION TWICE A DAY March 23, 2023 12:00am August 04, 2023 8:29am Start: 03-23-2023 End: 08-04-2023 take 1 puff(s) by inhalation twice daily Mometasone-Formoterol (Dulera) 200-5 mcg/actuation HFA aerosol inhaler Discontinued 2 PUFF INHALATION TWICE A DAY March 22, 2023 11:00pm August 04, 2023 7:29am Start: 03-23-2023 take 1 puff(s) by in halation twice daily Mometasone-Formoterol (Dulera) 200-5 mcg/actuation HFA aerosol inhaler Active 2 PUFF INHALATION TWICE A DAY March 23, 2023 12:00am Start: 12-23-2022 End: 12-24-2022 Mometasone-Formoterol (Duler a) 200-5 mcg/actuation HFA aerosol inhaler Discontinued 2 NMA INHALATION TWICE A DAY December 23, 2022 12:00am December 24, 2022 10:21am Start: 12-23-2022 End: 12-24-2022 take 1 puff(s) by inhalation twice daily Mometasone-Formoterol (Dulera) 200-5 mcg/actuation HFA aerosol inhaler Discontinued 2 PUFF INHALATION TWICE A DAY December 22, 2022 11:00pm December 24, 2022 9:21am Start: 12-23-2022 End: 12-24-2022 take 1 puff(s) by inhalation twice daily Mometasone-Formoterol (Dulera) 200-5 mcg/actuation HFA aerosol inhaler Discontinued 2 PUFF INHALATION TWICE A DAY December 23, 2022 12:00am December 24, 2022 10:21am montelukast 10 mg oral tablet (17 sources) Leukotriene Receptor Antagonist Start: 07-20-2023 End: 01-04-2025 take 1 tablet by mouth once daily in the evening Montelukast 10 mg tablet Discontinued 10 mg PO EVERY EVENING November 29, 2024 11:38am January 04, 2025 10:20am pantoprazole 40 mg delayed release oral tablet (20 sources) Proton Pump Inhibitor Start: 07-16-2022 End: 01-02-2025 take 1 tablet by mouth once daily in the morning Pantoprazole (Protonix) 40 mg tablet,delayed release (DR/EC) Discontinued 40 mg PO EVERY MORNING November 29, 2024 11:38am January 02, 2025 3:43pm Start: 03-05-2022 End: 07-16-2022 Pantoprazole (Protonix) 40 m g tablet,delayed release (DR/EC) Discontinued 40 mg PO TWICE A DAY March 30, 2022 10:42pm July 16, 2022 8:22am take two times a day for eight weeks then once a day pioglitazone 30 mg oral tablet (20 sources) Peroxisome Proliferator Receptor alpha Agonist, Peroxisome Proliferator Receptor gamma Agonist, Thiazolidinedione Start: 05-12-2023 End: 01-02-2025 take 1 tablet by mouth once daily Pioglitazone 30 mg tablet Discontinued 30 mg PO DAILY July 22, 2024 12:46pm January 02, 2025 3:43pm Start: 05-12-2023 End: 05-12-2023 Pioglitazone Discontinued MG PO May 11, 2023 11:00pm May 12, 2023 10:10am Start: 08-13-2021 End: 09-25-2022 take 1 tablet by mouth once daily Pioglitazone 30 mg tablet Discontinued 30 mg PO DAILY August 13, 2021 12:00am September 25, 2022 3:01pm polyethylene glycol 3350 15061 mg powder for oral solution (20 sources) Osmotic Laxative Start: 03-30-2022 End: 08-09-2024 Polyethylene Glycol 3350 (Miralax) 17 gram Powder In Packet Discontinued 17 g PO DAILY as needed for Constipation March 30, 2022 12:00am August 09, 2024 8:33am Start: 08-28-2021 End: 12-18-2021 Polyethylene Glycol 3350 (Mi ralax) 17 gram/dose powder Discontinued 17 g PO DAILY August 28, 2021 1:00am December 18, 2021 10:46am take as directed for bowel prep predniSONE 20 mg oral tablet (5 sources) Start: 07-20-2023 End: 08-04-2023 take 3 tablets by mouth once daily at mealtime Prednisone 20 mg tablet Discontinued 60 mg PO daily July 20, 2023 12:00am August 04, 2023 8:29am administer with food or milk Start: 07-20-2023 End: 08-04-2023 take 60 mg by mouth once daily at mealtime Prednisone Discontinued 60 MG PO daily July 19, 2023 11:00pm August 04, 2023 7:29am administer with food or milk 12 hr ranolazine 500 mg extended release oral tablet (17 sources) Anti-anginal Start: 01-02-2022 End: 01-16-2022 take 1 tablet by mouth twice daily Ranolazine (Ranexa) 500 mg tablet extended release 12 hr Discontinued 500 mg PO TWICE A DAY 60 January 02, 2022 12:00am January 16, 2022 9:13am 72 hr scopolamine 0.0139 mg/hr transdermal system (4 sources) Anticholinergic Start: 03-03-2024 End: 08-09-2024 Scopolamine Base 1 mg over 3 days patch 3 day Discontinued 1 NMA TD Every 3 Days as needed for motion sickness March 03, 2024 12:00am August 09, 2024 8:32am simvastatin 40 mg oral tablet (20 sources) HMG-CoA Reductase Inhibitor Start: 11-28-2016 End: 11-29-2024 take 1 tablet by mouth at bedtime Simvastatin 40 mg tablet Discontinued 40 mg PO AT BEDTIME June 30, 2024 4:28pm November 29, 2024 11:39am sucralfate 1000 mg oral tablet (20 sources) Aluminum Complex Start: 03-07-2022 End: 07-16-2022 take 1 tablet by mouth before mealtime Sucralfate (Carafate) 1 gram tablet Discontinued 1 g PO before meals March 07, 2022 12:00am July 16, 2022 8:22am Start: 03-05-2022 End: 03-07-2022 Sucralfate (Carafate) 100 mg /mL suspension Discontinued 10 mL PO before meals 999March 05, 2022 12:00am March 07, 2022 10:34am take three times a day, one hour before meals and two hours away from other medications for thirty days. 60 actuat tiotropium 0.22347 mg/actuat inhalation spray (5 sources) Anticholinergic Start: 07-20-2023 End: 07-20-2023 take 1.25 ug by inhalation once daily Tiotropium [place] (Spiriva Respimat) 1.25 mcg/actuation mist Discontinued 2 NMA INHALATION DAILY July 20, 2023 12:00am July 20, 2023 8:11am Start: 07-20-2023 End: 07-20-2023 take 1 puff(s) by inhalation once daily Tiotropium [place] (Spiriva Respimat) 1.25 mcg/actuation mist Discontinued 2 PUFF INHALATION DAILY July 19, 2023 11:00pm July 20, 2023 7:11am Problems Active Problems Problem Classification Problem Date Documented Da te Episodic/Chronic Abdominal pain (10 sources) Abdominal pain; Translations: [Unspecified abdominal pain] 12-03-2023 Episodic Asthma (16 sources) Allergic asthma; Translations: [Unspecified asthma, uncomplicated] 06-18-2022 Chronic Chronic obstructive pulmonary disease and bronchiectasis (20 sources) Bronchitis; Translations: [Bronchitis, not specified as acute or chronic] 11-18-2017 Episodic Conditions associated with dizziness or vertigo (20 sources) Dizziness; Translations: [Dizziness and giddiness] Episodic Coronary atherosclerosis and other heart disease (20 sources) Angina pectoris; Translations: [Angina pectoris, unspecified] Onset: Chronic Deficiency and other anemia (8 sources) Anemia; Translations: [Anemia, unspecified] 06-10-2024 Episodic Deficiency and other anemia (1 source) Anemia, unspecified; Translations: [Anemia, unspecified] Onset: 5 Episodic Diabetes mellitus with complications (1 source) Type 2 diabetes mellitus with other specified complication; Translations: [Type 2 diabetes mellitus with other specified complication] Onset: 5 Chronic Diabetes mellitus without complication (20 sources) Type 2 diabetes mellitus; Translations: [Type 2 diabetes mellitus without complications] 12-16-2021 Chronic Disorders of lipid metabolism (20 sources) Mixed hyperlipidemia; Translations: [Mixed hyperlipidemia] Onset: 4 Chronic Esophageal disorders (20 sources) Gastroesophageal reflux disease; Translations: [Gastro-esophageal reflux disease without esophagitis] Chronic Essential hypertension (20 sources) Essential hypertension; Translations: [Essential (primary) hypertension] Onset: 4 Chronic Inflammation; infection of eye (except that caused by tuberculosis or sexually transmitteddisease) (7 sources) Acute conjunctivitis of bilateral eyes caused by chemical substance; Translations: [Acute toxic conjunctivitis, bilateral] 04-24-2023 Episodic Intestinal obstruction without hernia (17 sources) Intestinal obstruction co-occurrent and due to decreased peristalsis; Translations: [Ileus, unspecified] 08-08-2021 Episodic Neoplasms of unspecified nature or uncertain behavior (11 sources) Monoclonal gammopathy (clinical); Translations: [Monoclonal gammopathy] Onset: 5 12-21-2024 Chronic Comment on above: M-spike 1.3, IgG Starkey bda light chain.Asymptomatic.Discussed abnormal serum proteins and evaluation.At this time he needs to repeat labs in a few months.Patient agreed. Other bone disease and musculoskeletal deformities (11 sources) Osteopenia; Translations: [Other specified disorders of bone density and structure, unspecified site] 12-21-2024 Episodic Other bone disease and musculoskeletal deformities (1 source) Other specified disorders of bone density and structure, unspecified site; Translations: [Other specified disorders of bone density and structure, unspecified site] Onset: 5 Episodic Other bone disease and musculoskeletal deformities (1 source) Other specified disorders of bone density and structure, other site; Translations: [Other specified disorders of bone density and structure, other site] Onset: 5 Episodic Other connective tissue disease (17 sources) Cramp in lower limb; Translations: [Cramp and spasm] 09-18-2021 Episodic Other connective tissue disease (2 sources) Cramp and spasm; Translations: [Cramp of limb] Episodic Other disorders of stomach and duodenum (5 sources) Delayed gastric emptying; Translations: [Functional dyspepsia] 11-03-2023 Episodic Other disorders of stomach and duodenum (1 source) Functional dyspepsia; Translations: [Dyspepsia and other specified disorders of function of stomach] 11-03-2023 Episodic Other gastrointestinal disorders (17 sources) Dysphagia; Translations: [Dysphagia, unspecified] 12-18-2021 Episodic Other gastrointestinal disorders (17 sources) History of diverticulitis; Translations: [Personal history of other diseases of the digestive system] 09-18-2021 Episodic Other gastrointestinal disorders (17 sources) Constipation; Translations: [Constipation, unspecified] 09-18-2021 Episodic Other gastrointestinal disorders (11 sources) Constipation, unspecified; Translations: [Constipation, unspecified] Episodic Other gastrointestinal disorders (9 sources) Dysphagia, unspecified; Translations: [Dysphagia, unspecified] Episodic Other gastrointestinal disorders (10 sources) Slow transit constipation; Translations: [Slow transit constipation] 07-16-2022 Episodic Other gastrointestinal disorders (4 sources) Slow transit constipation; Translations: [Slow transit constipation] Episodic Other lower respiratory disease (16 sources) Dyspnea on exertion; Translations: [Shortness of breath] 05-15-2022 Episodic Other lower respiratory disease (12 sources) Shortness of breath; Translations: [Shortness of breath] Episodic Other nutritional; endocrine; and metabolic disorders (5 sources) Obesity; Translations: [Obesity, unspecified] 08-28-2023 Chronic Other nutritional; endocrine; and metabolic disorders (1 source) Obesity, unspecified; Translations: [Obesity, unspecified] 08-28-2023 Chronic Regional enteritis and ulcerative colitis (20 sources) Colitis; Translations: [Crohn's disease of large intestine without complications] Chronic Residual codes; unclassified (4 sources) Bilateral lower limb edema; Translations: [Localized edema] 03-03-2024 Episodic Past or Other Problems Problem Classification Problem Date Documented Date Episodic/Chronic Acute bronchitis (13 sources) Acute bronchitis; Translations: [Acute bronchitis, unspecified] Onset: 12-01-2024 12-01-2024 Episodic Cardiac dysrhythmias (20 sources) Palpitations; Translations: [Palpitations] Onset: 09-21-2024 Episodic Nonspecific chest pain (20 sources) Chest pain; Translations: [Chest pain, unspecified] Onset: 07-20-2024 Episodic Other screening for suspected conditions (not mental disorders or infectious disease) (8 sources) Cardiovascular stress test abnormal; Translations: [Abnormal result of other cardiovascular function study] Onset: 09-21-2024 06-29-2024 Episodic Residual codes; unclassified (15 sources) History of cardiac catheterization; Translations: [Other specified postprocedural states] Onset: 01-10-2022 04-03-2022 Episodic Comment on above: LEFT MAIN: Angiograp hically normal; LEFT ANTERIOR DESCENDING ARTERY:PROX LAD: Mild calcification, Mild luminal irregularities; DIAGONAL 1: Proximal - Mild luminal irregularities; CIRCUMFLEX ARTERY:PROX CIRC: Mild luminal irregularitiesMID CIRC: Mild calcification, Mild luminal irregularities; RIGHT CORONARY ARTERY: Angiographically normal; per cardiac cath 01/16/22 Unclassified (8 sources) radial shortening 05-01-2022 Results Test Name Value Interpretation Reference Range Facility Internal Medicine Office Vis ito 03-13-2025 Internal Medicine Office Visit [facility] [address] [place] [address] [place] [address] OFFICE VISIT Date of Service: 03/13/25 MR#: [id number] Acct: [id number] Name: JOSE SANDOVAL Rep #: [id number] : 1950 Provider: TYSON cardenas Age/Sex: 74/M Location: [facility] [place] Status: Signed Intake Vital Signs 01/09/25 15:05 03/13/25 13:43 Height 5 ft 9 in 5 ft 9 in Weight: 190 lb 191 lb BMI 28.0 28.2 BP 120/66 Blood Pressure Location Lt brachial Position Sitting Respiration 18 Pulse 86 Pulse Source Monitor Temp 97.6 F L Temp Source Temporal Pulse Oximetry (%) 95 Oxygen Delivery Method room air Intake Visit Reasons: ACUTE-DEEP COUGH, Cough Element Burner Required: No Is patient in pain?: No Allergies amoxicillin Allergy (Verified 03/13/25 13:29) Swelling nitroglycerin Allergy (Verified 03/13/25 13:29) SEVERE HYPOTENSION hydrocodone (From Vicodin) Adverse Reaction (Verified 03/13/25 13:29) Other Medications ???Medication ???Instructions ???Recorded ???Confirmed ???Type cholecalciferol (vitamin D3) 25 25 mcg PO DAILY supplement 1 03/13/25 History mcg (1,000 unit) tablet (Vitamin D3) multivitamin 1 tab PO DAILY supplement 08/13/21 03/13/25 History aspirin 81 mg tablet,delayed 81 mg PO QDAY #90 tabs 04/03/22 Rx release (Adult Aspirin Regimen) cetirizine 10 mg tablet (All Day 10 mg PO DAILY #90 tabs 11/06/23 0 03/13/25 Rx Allergy (cetirizine)) compress.helder,amanda e,reg,lrg #2 ea 03/03/24 03/13/25 Rx amlodipine 5 mg tablet 5 mg PO QDAY #90 tabs 07/13/2412/06 Rx lisinopril 20 mg tablet 20 mg PO DAILY hypertension #90 03/13/25 Rx tabs MDI spacer #1 ea 12/01/24 03/13/25 Rx atorvastatin 40 mg tablet 40 mg PO QPM #90 tabs 01/02/2512/06 Rx glimepiride 2 mg tablet 2 mg PO DAILY 3 months #90 tabs 03/13/25 Rx pantoprazole 40 mg tablet,delayed 40 mg PO QAM GERD #90 tabs 03/13/25 Rx release (Protonix) pioglitazone 30 mg tablet 30 mg PO DAILY #90 tabs 01/02/25 0 03/13/25 Rx metformin 1,000 mg tablet 1,000 mg PO BIDCM diabetes #180 03/13/25 Rx tabs montelukast 10 mg tablet 10 mg PO QPM #90 tabs 01/04/2512/06 Rx fluticasone furoate 100 1 inh inhalation QDAY #30 ea 03/13 Rx mcg/actuation blister powder for inhalation (Arnuity Ellipta) Have you fallen in the past year?: No Nurse's Note: Pt states that 11/2024 he was having a lot of coughing, which would take his breath away pneumonia was ruled out dx'd w/ bronchitis finished atb and used rescue inhaler. Pt states sx's resolved . About 2 weeks ago he started coughing and it is deep, he is getting a lot of SOB and supine position makes it worse. Pt states he occasionally gets yellow phlegm. Denies rattling or chest congestion. Pt denies any body aches,fevers,chills,h eadache,sore throat, nasal congestion or drainage. Pt states he is unable to sleep due to the coughing. Has not been treating w/ anything otc, he still has rescue inhaler which sometimes helps. Pt coughs so hard he almost pukes. He states that he gets palptations when he is coughing so hard. Denies pain on inspiration. [facility] Medical History Acute bronchitis, unspecified Anemia Constipation Bilateral lower extremity edema Abdominal pain Obesity Health care maintenance Bruising Easy bruising Diverticulosis History of echocardiogram Cardiology follow-up encounter SOB (shortness of breath) on exertion Angina pectoris BPH (benign prostatic hyperplasia) Essential hypertension Mixed hyperlipidemia Type 2 diabetes mellitus Leg cramps Dizziness Wears glasses History of steroid therapy Kidney stones Back pain History of diverticulitis Non-smoker Leg cramps History of stress test Chest pain Ileus Appendicitis radial shortening Diabetes Surgical History History of surgery on arm History of colonoscopy History of left heart catheterization (LHC) ( 01/16/22) History of transurethral resection of prostate Hx of appendectomy H/O arthroscopic knee surgery H/O hernia repair History of carpal tunnel surgery History of knee replacement Family History Grandfather Heart disease Grandfather Heart disease Grandmother Heart disease Esophageal cancer Mother Multiple myeloma Social History Smoking Status: Never smoker alcohol intake: never substance use type: does not use caffeine: Yes Type: carbonated beverages HPI HPI Details: JOSE SANDOVAL, is a 74 M who presents to the office today for complaints (more content not included)... Normal [facility] Bone Survey Comp(Axial Appen d)on 02-09-2025 Bone Survey Comp(Axial Append) [facility] Imaging Services [address] [place] [address] Bone Survey Comp(Axial Append) MR#: [id number] Acct: [id number] Name: JOSE SANDOVAL Rep #: [id number] : 1950 M 74 From: Miquel Strong MD PCP: Dr. Timmy Floyd MD Status: REG CLI Study: Bone Survey Comp(Axial Append) Date of Exam: 0 02/09/25 Exam# [id number] Ordering Dr: Miles Armendariz MD PROCEDURE: BONE SURVEY COMP(AXIAL APPEND) 02/09/2025 REASON FOR EXAM: MGUS FINDINGS: Skull: No lytic or blastic bone lesion. C-T-L Spine: No evidence of compression fracture. No lytic or blastic bone lesion. Degenerative disc disease. Ribs: Unremarkable. AP Pelvis: Unremarkable. AP Humeri: No lytic or blastic bone lesion. AP Femurs: No lytic or blastic bone lesion. RAD/Bone Survey Comp(Axial Append) IMPRESSION: NEGATIVE BONE SURVEY. Reading Location: [facility] CC: Dr. Timmy Floyd MD; Dr. Miles Armendariz MD Architectural Draftsperson: Signed Normal [facility] Oncology Visit Reporton 12-12 Oncology Visit Report [facility] [address] [place] [address] OFFICE VISIT Date of Service: 01/09/25 1459 MR#: [id number] Acct: [id number] Name: JOSE SANDOVAL Rep #: [id number] : 1950 From: Miles Armendariz MD Age/Sex: 74/M [place] [facility] [place]: Signed HPI Subjective Date of Service 01/09/25 Chief Complaint Referred for abnormal serum protein. History of Present Illness 74-year-old man was found to have high Ig G level of 1748 on 12/16/2024, M spike was 1.3 IgG lambda light chain specificity, also had IgA. He is now referred for further evaluation and management. He denies weight loss, fever, night sweats or pain. [facility] Medical History (Updated 01/09/25 @ 17:[address] Miles Armendariz MD) Acute bronchitis, unspecified Anemia Constipation Bilateral lower extremity edema Abdominal pain Obesity Health care maintenance Bruising Easy bruising Diverticulosis History of echocardiogram Cardiology follow-up encounter SOB (shortness of breath) on exertion Angina pectoris BPH (benign prostatic hyperplasia) Essential hypertension Mixed hyperlipidemia Type 2 diabetes mellitus Leg cramps Dizziness Wears glasses History of steroid therapy Kidney stones Back pain History of diverticulitis Non-smoker Leg cramps History of stress test Chest pain Ileus Appendicitis radial shortening Diabetes Surgical History History of surgery on arm History of colonoscopy History of left heart catheterization (LHC) ( 01/16/22) History of transurethral resection of prostate Hx of appendectomy H/O arthroscopic knee surgery H/O hernia repair History of carpal tunnel surgery History of knee replacement Family History Grandfather Heart disease Grandfather Heart disease Grandmother Heart disease Esophageal cancer Mother Multiple myeloma Social History Smoking Status: Never smoker alcohol intake: never substance use type: does not use caffeine: Yes Type: carbonated beverages ROS Constitutional Constitutional: Reports systems reviewed and no addt'l complaints, except as documented Eyes Eyes: Reports systems reviewed and no addt'l complaints, except as documented ENT HEENT: Reports systems reviewed and no addt'l complaints, except as documented Cardiovascular Cardiovascular: Reports systems reviewed and no addt'l complaints, except as documented Respiratory/Chest Respiratory/Chest: Reports systems reviewed and no addt'l complaints, except as documented Gastrointestinal Gastrointestinal: Reports systems reviewed and no addt'l complaints, except as documented Genitourinary Genitourinary: Reports systems reviewed and no addt'l complaints, except as documented Musculoskeletal Musculoskeletal: Reports systems reviewed and no addt'l complaints, except as documented Integumentary Integumentary: Reports systems reviewed and no addt'l complaints, except as documented Neurologic Neurologic: Reports systems reviewed and no addt'l complaints, except as documented Psychiatric Psychiatric: Reports systems reviewed and no addt'l complaints, except as documented Endocrine Endocrinology: Reports systems reviewed and no addt'l complaints, except as documented Hematologic/Lymphatic Hematologic/Lymphatic : Reports systems reviewed and no addt'l complaints, except as documented Allergic/Immunologic Allergic/Immunologic: Reports systems reviewed and no addt'l complaints, except as documented Intake Vital Signs 12/21/24 15:44 01/02/25 15:17 01/09/25 15:03 01/09/25 15:04 01/09/25 15:05 Height 5 ft 9 in 5 ft 9 in 5 ft 9 in 5 ft 9 in 5 ft 9 in Weight: 86.183 kg 86.183 kg BMI 28.0 28.0 BP 109/65 Blood Pressure Location Lt brachial Position Sitting Respiration 18 Pulse 95 Pulse Source Monitor Temp 98.4 F Temperature Source Temporal Artery Pulse Oximetry (%) 94 Oxygen Delivery Method room air Intake Is patient in pain?: No Allergies amoxicillin Allergy (Verified 01/09/25 14:59) Swelling nitroglycerin Allergy (Verified 01/09/25 14:59) SEVERE HYPOTENSION hydrocodone (From Vicodin) Adverse Reaction (Verified 01/09/25 14:59) Other Medications ???Medication ???Instructions ???Recorded ???Confirmed ???Type cholecalciferol (vitamin D3) 25 25 mcg PO DAILY supplement 1 01/09/25 History mcg (1,000 unit) tablet (Vitamin D3) multivitamin 1 tab PO DAILY supplement 08/13/21 01/09/25 History aspirin 81 mg tablet,delayed 81 mg PO QDAY #90 tabs 04/03/22 Rx release (Adult Aspirin Regimen) cetirizine 10 mg tablet (All Day 10 mg PO DAILY #90 tabs 11/06/23 0 01/09/25 Rx Allergy (ce (more content not included)... Normal [facility] Internal Medicine Office Vis cris 01-02-2025 Internal Medicine Office Visit [facility] [address] [place] [address] [address] [place], [place] [address] OFFICE VISIT Date of Service: 01/02/25 MR#: [id number] Acct: [id number] Name: JOSE SANDOVAL Rep #: [id number] : 1950 Provider: Dr. Timmy welch MD Age/Sex: 74/M Location: [facility] [place] Status: Signed Intake Vital Signs 11/11/24 09:50 12/21/24 15:44 01/02/25 15:17 Height 5 ft 9 in 5 ft 9 in 5 ft 9 in Weight: 188 lb BMI 27.7 BP 118/60 Blood Pressure Location Lt brachial Position Sitting Respiration 14 Pulse 80 Pulse Source Monitor Temp 97.3 F L Temp Source Temporal Pulse Oximetry (%) 96 Oxygen Delivery Method room air Intake Visit Reasons: chk up Chief Complaint: fu chronic conditions Element Burner Required: No Is patient in pain?: No Allergies amoxicillin Allergy (Verified 01/02/25 15:07) Swelling nitroglycerin Allergy (Verified 01/02/25 15:07) SEVERE HYPOTENSION hydrocodone (From Vicodin) Adverse Reaction (Verified 01/02/25 15:07) Other Medications ???Medication ???Instructions ???Recorded ???Confirmed ???Type cholecalciferol (vitamin D3) 25 25 mcg PO DAILY supplement 1 01/02/25 History mcg (1,000 unit) tablet (Vitamin D3) multivitamin 1 tab PO DAILY supplement 08/13/21 01/02/25 History aspirin 81 mg tablet,delayed 81 mg PO QDAY #90 tabs 04/03/22 Rx release (Adult Aspirin Regimen) cetirizine 10 mg tablet (All Day 10 mg PO DAILY #90 tabs 11/06/23 0 01/02/25 Rx Allergy (cetirizine)) compress.helder,amanda e,reg,lrg #2 ea 03/03/24 01/02/25 Rx amlodipine 5 mg tablet 5 mg PO QDAY #90 tabs 07/13/24 Rx lisinopril 20 mg tablet 20 mg PO DAILY hypertension #90 01/02/25 Rx tabs metformin 1,000 mg tablet 1,000 mg PO BIDCM diabetes #60 tab s 11/29/24 01/02/25 Rx montelukast 10 mg tablet 10 mg PO QPM #30 tabs 11/29/24 Rx MDI spacer #1 ea 12/01/24 01/02/25 Rx fluticasone furoate 100 1 inh inhalation QDAY #30 ea 12/0201/02/25 Rx mcg/actuation blister powder for inhalation (Arnuity Ellipta) atorvastatin 40 mg tablet 40 mg PO QPM #90 tabs 01/02/25 Rx glimepiride 2 mg tablet 2 mg PO DAILY 3 months #90 tabs 01/02/25 Rx pantoprazole 40 mg tablet,delayed 40 mg PO QAM GERD #90 tabs 01/02/25 Rx release (Protonix) pioglitazone 30 mg tablet 30 mg PO DAILY #90 tabs 01/02/25 0 01/02/25 Rx Have you fallen in the past year?: No PFSH Medical History Acute bronchitis, unspecified Anemia Constipation Bilateral lower extremity edema Abdominal pain Obesity Health care maintenance Bruising Easy bruising Diverticulosis History of echocardiogram Cardiology follow-up encounter SOB (shortness of breath) on exertion Angina pectoris BPH (benign prostatic hyperplasia) Essential hypertension Mixed hyperlipidemia Type 2 diabetes mellitus Leg cramps Dizziness Wears glasses History of steroid therapy Kidney stones Back pain History of diverticulitis Non-smoker Leg cramps History of stress test Chest pain Ileus Appendicitis radial shortening Diabetes Surgical History History of surgery on arm History of colonoscopy History of left heart catheterization (LHC) ( 01/16/22) History of transurethral resection of prostate Hx of appendectomy H/O arthroscopic knee surgery H/O hernia repair History of carpal tunnel surgery History of knee replacement Family History Grandfather Heart disease Grandfather Heart disease Grandmother Heart disease Social History Smoking Status: Never smoker alcohol intake: never substance use type: does not use caffeine: Yes Type: carbonated beverages HPI HPI Chief Complaint: fu chronic conditions Details: JOSE AMSTUTZ, is a 74 M who presents to the office today for follow-up of his chronic conditions. No acute concerns at this time. Due to osteopenia on imaging he had a bone density scan which was reported as normal. No recent fractures. Stays active. States that he has been taking a vitamin D supplement. A1c today is at 6.7 up from 6.2. Currently on pioglitazone, metformin and glimepiride which he is taking as prescribed. No concerns for hypoglycemia. Other chronic medical conditions are stable. ROS Const Constitutional: No body ache, chills, excessive sweating, fatigue, fever(s), frequent falls, headache(s), snoring, weakness, sleep problems or change in appetite Eyes Eyes: No blurry vision, change in vision, floaters, visual disturbances, eye pain or Light sensitivity E (more content not included)... Normal [facility] - Hematology and Cell countsOrdered By: Timmy Floyd on 01-02-2025 HbA1c (Bld) [Mass fraction] 6.7 % High 4.2-6.3 [facility] Bone density reportOrdered B y: Angel Torres on 12-29-2024 Study report Skeletal system DXA [facility] Imaging Services [address] [place], [place] [id number] Dexa Bone Density Study MR#: [id number] Acct: [id number] Name: JOSE SANDOVAL Rep #: [id number] : 1950 M 74 From: Azam Torres MD PCP: Dr. Timmy Floyd MD Status: Lauryn LEZAMA CLI Study:Dexa Bone Density Study Date of Exam: 12/29/24 Exam# [id number] Ordering Dr: Nathanael Jackson PA PROCEDURE: DEXA BONE DENSITY STUDY 12/29/2024 REASON FOR EXAM: OSTEOPENIA M, age 74 y/o . Postmenopausal. TECHNIQUE: DXA scan of the lumbar spine and left hip, using make and model. REFERENCE LINKS: ISCD Adult Positions FINDINGS: Lumbar Spine (L1-L4): g/cm2 (1.280)/T-score (1.9)/Z-score (2.8) findings are suggestive of normal with a low fracture risk. Left Femur Total: g/cm2 (1.021)/T-score (-0.1)/Z-score (0.6) Left Femoral Neck: g/cm2 (0.804)/T-score (-0.9)/Z-score (0.3) Right Femur Total: g/cm2 (0.998)/T-score (-0.2)/Z-score (0.5) Right Femoral Neck: g/cm2 (0.814)/T-score (-0.9)/Z-score (0.4) BD/Dexa Bone Density Study IMPRESSION: The patient is considered normal as outlined below according to World [employer] (WHO) criteria with a low fracture risk. Reading Location: [place] [address] CC: Dr. Timmy Floyd MD; SUJATA Alvarenga ~ Architectural Draftsperson: Signed [facility] Dexa Bone Density Studyon Dexa Bone Density Study [facility] Imaging Services [address] [place] [id number] Dexa Bone Density Study MR#: [id number] Acct: [id number] Name: JOSE SANDOVAL Rep #: [id number] : 1950 M 74 From: Angel greene MD PCP: Dr. Timmy Floyd MD Status: REG CLI Study: Dexa Bone Density Study Date of Exam: 12/29/24 Exam# [id number] Ordering Dr: Sean Jackson PA PROCEDURE: DEXA BONE DENSITY STUDY 12/29/2024 REASON FOR EXAM: OSTEOPENIA M, age 74 y/o . Postmenopausal. TECHNIQUE: DXA scan of the lumbar spine and left hip, using make and model. REFERENCE LINKS: ISCD Adult Positions FINDINGS: Lumbar Spine (L1-L4): g/cm2 (1.280)/T-score (1.9)/Z-score (2.8) findings are suggestive of normal with a low fracture risk. Left Femur Total: g/cm2 (1.021)/T-score (-0.1)/Z-score (0.6) Left Femoral Neck: g/cm2 (0.804)/T-score (-0.9)/Z-score (0.3) Right Femur Total: g/cm2 (0.998)/T-score (-0.2)/Z-score (0.5) Right Femoral Neck: g/cm2 (0.814)/T-score (-0.9)/Z-score (0.4) BD/Dexa Bone Density Study IMPRESSION: The patient is considered normal as outlined below according to World [employer] (WHO) criteria with a low fracture risk. Reading Location: [place] [address] CC: Dr. Timmy Floyd MD; SUJATA Alvarenga Architectural Draftsperson: Signed Normal [facility] Celiac Disease Profileon ENDOMYSIAL IGA Negative Normal Negative [facility] Comment on above: Performed By: #### L 503.6150, L504.2610, L100.9950, L100.0100, L3410.2400, L3100.3425, L503.6550 ####[facility] [id number] [place], [place], [id number] tTG IGA <2 Normal 0-3 [facility] Comment on above: Result Comment: Nega tive 0 - 3 Weak Positive 4 - 10 Positive >10 Tissue Transglutaminase (tTG) has been identified as the endomysial antigen. Studies have demonstr- ated that endomysial IgA antibodies have over 99% specificity for gluten sensitive enteropathy. Performed By: #### L 503.6150, L504.2610, L100.9950, L100.0100, L3410.2400, L3100.3425, L503.6550 ####[facility] [address] [place], [place], [id number] PENNY + Protein Elect, Serumon 12-21-2024 Albumin [Mass/Vol] 4.0 g/dL Normal 2.9-4.4 [facility] Comment on above: Order Comment: N Performed By: #### L 503.6150, L504.2610, L100.9950, L100.0100, L3410.2400, L3100.3425, L503.6550 ####[facility] [address] [place], [address] Albumin/Globulin [Mass ratio] 1.2 {ratio} Normal 0.7-1.7 [facility] Comment on above: Order Comment: N Performed By: #### L 503.6150, L504.2610, L100.9950, L100.0100, L3410.2400, L3100.3425, L503.6550 ####[facility] [address] [place], [address] FPSZY-8-GKRU 0.2 g/dL Normal 0.0-0.4 [facility] Comment on above: Order Comment: N Performed By: #### L 503.6150, L504.2610, L100.9950, L100.0100, L3410.2400, L3100.3425, L503.6550 ####[facility] [address] [place], [address] FVLPG-8-VYIJ 0.8 g/dL Normal 0.4-1.0 [facility] Comment on above: Order Comment: N Performed By: #### L 503.6150, L504.2610, L100.9950, L100.0100, L3410.2400, L3100.3425, L503.6550 ####[facility] [address] [place], [address] BETA GLOBULIN 0.9 g/dL Normal 0.7-1.3 [facility] Comment on above: Order Comment: N Performed By: #### L 503.6150, L504.2610, L100.9950, L100.0100, L3410.2400, L3100.3425, L503.6550 ####[facility] [address] [place], [address] GAMMA GLOBULIN 1.6 g/dL Normal 0.4-1.8 [facility] Comment on above: Order Comment: N Performed By: #### L 503.6150, L504.2610, L100.9950, L100.0100, L3410.2400, L3100.3425, L503.6550 ####[facility] [address] [place], [address] Globulin (S) [Mass/Vol] 3.6 g/dL Normal 2.2-3.9 [facility] Comment on above: Order Comment: N Performed By: #### L 503.6150, L504.2610, L100.9950, L100.0100, L3410.2400, L3100.3425, L503.6550 ####[facility] [address] [place], [address] PENNY RESULT,S Comment Abnormal . [facility] Comment on above: Order Comment: N Result Comment: Immu nofixation shows IgG monoclonal protein with lambda light chain specificity. PENNY also shows an asymmetrical IgA suggestive of a monoclonal protein. Performed By: #### L 503.6150, L504.2610, L100.9950, L100.0100, L3410.2400, L3100.3425, L503.6550 ####[facility] [address] [place], [address] IMMUNOGLOB A QN 68 mg/dL Normal 61-437 [facility] Comment on above: Order Comment: N Performed By: #### L 503.6150, L504.2610, L100.9950, L100.0100, L3410.2400, L3100.3425, L503.6550 ####[facility] [address] [place], [place], [address] IMMUNOGLOB G QN 1748 mg/dL High 603-1613 [facility] Comment on above: Order Comment: N Performed By: #### L 503.6150, L504.2610, L100.9950, L100.0100, L3410.2400, L3100.3425, L503.6550 ####[facility] [address] [place], [place], [id number] IMMUNOGLOB M QN 38 mg/dL Normal 15-143 [facility] Comment on above: Order Comment: N Performed By: #### L 503.6150, L504.2610, L100.9950, L100.0100, L3410.2400, L3100.3425, L503.6550 ####[facility] [address] [place], [address] M-Rudolph 1.3 g/dL Abnormal Not Observed [facility] Comment on above: Order Comment: N Performed By: #### L 503.6150, L504.2610, L100.9950, L100.0100, L3410.2400, L3100.3425, L503.6550 ####[facility] [address] [place], [place], [id number] NOTE: Comment Normal . [facility] Comment on above: Order Comment: N Result Comment: Prot ein electrophoresis scan will follow via computer, mail, or internet marketing manager delivery. Performed at: [address] [id number] School Commissioner: Minh Maradiaga PhD, Phone: [phone] Performed By: #### L 503.6150, L504.2610, L100.9950, L100.0100, L3410.2400, L3100.3425, L503.6550 ####[facility] [address] [place], [address] Protein [Mass/Vol] 7.6 g/dL Normal 6.0-8.5 [facility] Comment on above: Order Comment: N Performed By: #### L 503.6150, L504.2610, L100.9950, L100.0100, L3410.2400, L3100.3425, L503.6550 ####[facility] [address] [place], [address] Internal Medicine Office Vis iton 12-21-2024 Internal Medicine Office Visit [facility] [address] [place] [address] [place] [address] OFFICE VISIT Date of Service: 12/21/24 MR#: [id number] Acct: [id number] Name: JOSE SANDOVAL Rep #: [id number] : 1950 Provider: SUJATA Alvarenga Age/Sex: 74/M Location: [facility] [place] Status: Signed Intake Vital Signs 12/01/24 14:15 12/21/24 15:44 Height 5 ft 9 in 5 ft 9 in Weight: 191 lb BMI 28.2 BP 124/78 H Blood Pressure Location Lt brachial Position Sitting Respiration 14 Pulse 84 Pulse Source Monitor Temp 98 F Temp Source Temporal Pulse Oximetry (%) 98 Oxygen Delivery Method room air Intake Visit Reasons: FU ON INHALER Element Burner Required: No Is patient in pain?: No Allergies amoxicillin Allergy (Verified 12/21/24 15:23) Swelling nitroglycerin Allergy (Verified 12/21/24 15:23) SEVERE HYPOTENSION hydrocodone (From Vicodin) Adverse Reaction (Verified 12/21/24 15:23) Other Medications ???Medication ???Instructions ???Recorded ???Confirmed ???Type cholecalciferol (vitamin D3) 25 25 mcg PO DAILY supplement 1 12/21/24 History mcg (1,000 unit) tablet (Vitamin D3) multivitamin 1 tab PO DAILY supplement 08/13/21 12/21/24 History aspirin 81 mg tablet,delayed 81 mg PO QDAY #90 tabs 04/03/22 Rx release (Adult Aspirin Regimen) cetirizine 10 mg tablet (All Day 10 mg PO DAILY #90 tabs 11/06/23 0 12/21/24 Rx Allergy (cetirizine)) compress.amanda pendleton,reg,lrg #2 ea 03/03/24 12/21/24 Rx amlodipine 5 mg tablet 5 mg PO QDAY #90 tabs 07/13/2410/05 Rx pioglitazone 30 mg tablet 30 mg PO DAILY #90 tabs 07/22/24 0 12/21/24 Rx lisinopril 20 mg tablet 20 mg PO DAILY hypertension #90 12/21/24 Rx tabs atorvastatin 40 mg tablet 40 mg PO QPM #30 tabs 11/29/2410/05 Rx glimepiride 2 mg tablet 2 mg PO DAILY 3 months #30 tabs 12/21/24 Rx metformin 1,000 mg tablet 1,000 mg PO BIDCM diabetes #60 tab s 11/29/24 12/21/24 Rx montelukast 10 mg tablet 10 mg PO QPM #30 tabs 11/29/2410/05 Rx pantoprazole 40 mg tablet,delayed 40 mg PO QAM GERD #30 tabs 12/21/24 Rx release (Protonix) MDI spacer #1 ea 12/01/24 12/21/24 Rx fluticasone furoate 100 1 inh inhalation QDAY #30 ea 12/0212/21/24 Rx mcg/actuation blister powder for inhalation (Arnuity Ellipta) Have you fallen in the past year?: No Nurse's Note: States he is feeling much better, no longer has a cough no wheezing or SOB. Finished atb's still using inhaler occasionally has missed a couple of days but has not seen a difference on if he takes it or not. [facility] Medical History Acute bronchitis, unspecified Anemia Constipation Bilateral lower extremity edema Abdominal pain Obesity Health care maintenance Bruising Easy bruising Diverticulosis History of echocardiogram Cardiology follow-up encounter SOB (shortness of breath) on exertion Angina pectoris BPH (benign prostatic hyperplasia) Essential hypertension Mixed hyperlipidemia Type 2 diabetes mellitus Leg cramps Dizziness Wears glasses History of steroid therapy Kidney stones Back pain History of diverticulitis Non-smoker Leg cramps History of stress test Chest pain Ileus Appendicitis radial shortening Diabetes Surgical History History of surgery on arm History of colonoscopy History of left heart catheterization (LHC) ( 01/16/22) History of transurethral resection of prostate Hx of appendectomy H/O arthroscopic knee surgery H/O hernia repair History of carpal tunnel surgery History of knee replacement Family History Grandfather Heart disease Grandfather Heart disease Grandmother Heart disease Social History Smoking Status: Never smoker alcohol intake: never substance use type: does not use caffeine: Yes Type: carbonated beverages HPI HPI Details: JOSE SANDOVAL, is a 74 M who presents to the office today for repeat check of his cough which she had been having for for approximately 2 months. Patient had a cough for about a month and then was seen at the [facility] and treated for bronchitis. He presented to our office with continued cough. At that time the chest showed some minor wheezes at the same time there was no fevers or signs of infection and therefore patient was given inhaler for possible reactive airway disease. Patient has been using the inhaler and states that this time he is feeling a whole lot better. He states that he is hardly coughing at all anymore and that it is pretty much gone at this point. He is not h (more content not included)... Normal [facility] Absolute lymphocyte countOrd ered By: Robert Flores on 12-16-2024 Lymphocytes Auto (Unsp spec) [#/Vol] 1.84 10*3/uL 0.83-4.51 [facility] Absolute neutrophil countOrd ered By: Robert Flores on 12-16-2024 Neutrophils (Bld) [#/Vol] 4.0 10*3/uL 2.0-7.7 [facility] Addendum DocumentOrdered By: Robert Flores on 12-16-2024 Serum Immunofixation Comments Comment . [facility] Comment on above: Protein electrophore sis scan will follow via computer,mail, or internet marketing manager delivery.Performed at: [address] [id number] Director: Minh Maradiaga PhD, Phone: [phone] Albumin Elph [Mass/Vol]Order ed By: Robert Flores on 12-16-2024 Albumin [Mass/Vol] 4.0 g/dL 2.9-4.4 [facility] Alpha 1 globulin Elph [Mass/ Vol]Ordered By: Robertadla Flores on 12-16-2024 Mbfcn-3-Ijsmmzmbj (PENNY) 0.2 g/dL 0.0-0.4 [facility] Jclpd-0-Evnentamw (PENNY) 0.8 g/dL 0.4-1.0 [facility] Automated lymphocyte count a s percentage of total leukocytesOrdered By: Robert Shivani on 12-16-2024 Lymphocytes/100 WBC Auto (Unsp spec) 26.8 % 19-41 [facility] Basophil percentageOrdered B y: Robertalda Flores on 12-16-2024 Basophils/100 WBC (Bld) 0.7 % 0-1 [facility] Beta globulin Elph [Mass/Vol ]Ordered By: Robertalda Flores on 12-16-2024 Beta-Globulins (PENNY) 0.9 g/dL 0.7-1.3 [facility] CBC W/Diff, Automatedon Absolute Lymph 1.84 X10 3/uL Normal 0.83-4.51 [facility] Comment on above: Performed By: #### L 503.6150, L504.2610, L100.9950, L100.0100, L3410.2400, L3100.3425, L503.6550 ####[facility] [address] [place], [address] Absolute Neut 4.0 X10 3/uL Normal 2.0-7.7 [facility] Comment on above: Performed By: #### L 503.6150, L504.2610, L100.9950, L100.0100, L3410.2400, L3100.3425, L503.6550 ####[facility] [address] [place], [address] Basophils/100 WBC (Bld) 0.7 % Normal 0-1 [facility] Comment on above: Performed By: #### L 503.6150, L504.2610, L100.9950, L100.0100, L3410.2400, L3100.3425, L503.6550 ####[facility] [address] [place], [address] Eosinophils/100 WBC (Bld) 6.0 % High 0-5 [facility] Comment on above: Performed By: #### L 503.6150, L504.2610, L100.9950, L100.0100, L3410.2400, L3100.3425, L503.6550 ####[facility] [address] [place], [address] Erythrocyte distribution width (RBC) [Ratio] 12.9 % Normal 11.6-14.6 [facility] Comment on above: Performed By: #### L 503.6150, L504.2610, L100.9950, L100.0100, L3410.2400, L3100.3425, L503.6550 ####[facility] [address] [place], [address] Hematocrit (Bld) [Volume fraction] 41.2 % Normal 40-54 [facility] Comment on above: Performed By: #### L 503.6150, L504.2610, L100.9950, L100.0100, L3410.2400, L3100.3425, L503.6550 ####[facility] [address] [place], [address] Hemoglobin (Bld) [Mass/Vol] 13.7 g/dL Normal 13.0-16.5 [facility] Comment on above: Performed By: #### L 503.6150, L504.2610, L100.9950, L100.0100, L3410.2400, L3100.3425, L503.6550 ####[facility] [address] [place], [address] IG% 0.300 Normal 0.0-0.9 [facility] Comment on above: Result Comment: IG% - Immature Granulocytes (promyelocytes, myelocytes and metamyelocytes) > 1% indicates that a LEFT SHIFT is Present. Performed By: #### L 503.6150, L504.2610, L100.9950, L100.0100, L3410.2400, L3100.3425, L503.6550 ####[facility] [address] [place], [address] Lymphocytes/100 WBC (Bld) 26.8 % Normal 19-41 [facility] Comment on above: Performed By: #### L 503.6150, L504.2610, L100.9950, L100.0100, L3410.2400, L3100.3425, L503.6550 ####[facility] [address] [place], [address] MCH (RBC) [Entitic mass] 31.1 pg Normal 27.0-32.0 [facility] Comment on above: Performed By: #### L 503.6150, L504.2610, L100.9950, L100.0100, L3410.2400, L3100.3425, L503.6550 ####[facility] [address] [place], [address] MCHC (RBC) [Mass/Vol] 33.3 g/dL Normal 32-[address] [facility] Comment on above: Performed By: #### L 503.6150, L504.2610, L100.9950, L100.0100, L3410.2400, L3100.3425, L503.6550 ####[facility] [address] [place], [address] MCV (RBC) [Entitic vol] 93.4 fL Normal 80-94 [facility] Comment on above: Performed By: #### L 503.6150, L504.2610, L100.9950, L100.0100, L3410.2400, L3100.3425, L503.6550 ####[facility] [address] [place], [address] Monocytes/100 WBC (Bld) 7.7 % Normal 0-10 [facility] Comment on above: Performed By: #### L 503.6150, L504.2610, L100.9950, L100.0100, L3410.2400, L3100.3425, L503.6550 ####[facility] [address] [place], [address] Neutrophils/100 WBC (Bld) 58.5 % Normal 47-70 [facility] Comment on above: Performed By: #### L 503.6150, L504.2610, L100.9950, L100.0100, L3410.2400, L3100.3425, L503.6550 ####[facility] [address] [place], [address] Nucleated RBC (Bld) [#/Vol] 0 10*3/uL Normal 0-5 [facility] Comment on above: Performed By: #### L 503.6150, L504.2610, L100.9950, L100.0100, L3410.2400, L3100.3425, L503.6550 ####[facility] [address] [place], [address] Platelet mean volume (Bld) [Entitic vol] 9.3 fL Normal 6.2-12.0 [facility] Comment on above: Performed By: #### L 503.6150, L504.2610, L100.9950, L100.0100, L3410.2400, L3100.3425, L503.6550 ####[facility] [address] [place], [address] Platelets (Bld) [#/Vol] 406 10*3/uL Normal 150-450 [facility] Comment on above: Performed By: #### L 503.6150, L504.2610, L100.9950, L100.0100, L3410.2400, L3100.3425, L503.6550 ####[facility] [address] [place], [address] RBC (Bld) [#/Vol] 4.41 10*6/uL Low 4.6-6.2 [facility] Comment on above: Performed By: #### L 503.6150, L504.2610, L100.9950, L100.0100, L3410.2400, L3100.3425, L503.6550 ####[facility] [address] [place], [address] RDW SD 44.2 fl High 35.1-43.9 [facility] Comment on above: Performed By: #### L 503.6150, L504.2610, L100.9950, L100.0100, L3410.2400, L3100.3425, L503.6550 ####[facility] [address] [place], [address] WBC (Bld) [#/Vol] 6.9 10*3/uL Normal 4.4-11.0 [facility] Comment on above: Performed By: #### L 503.6150, L504.2610, L100.9950, L100.0100, L3410.2400, L3100.3425, L503.6550 ####[facility] [address] [place], [address] Endomysial IgA antibody светлана Larkinered By: Robert Flores on 12-16-2024 Endomysial IgA Antibody Negative Negative [facility] Eosinophil percentageOrdered By: Robert Flores on 12-16-2024 Eosinophils/100 WBC (Bld) 6.0 % High 0-5 [facility] Erythrocyte distribution wid th ratioOrdered By: Robert Flores on 12-16-2024 Erythrocyte distribution width (RBC) [Ratio] 12.9 % 11.6-14.6 [facility] Erythrocyte distribution wid th standard deviationOrdered By: Robert Flores on 12-16-2024 Erythrocyte distribution width (RBC) [Entitic vol] 44.2 fL High 35.1-43.9 [facility] Erythrocyte distribution width (RBC) [Ratio] 44.2 fl High 35.1-43.9 [facility] Ferritinon 12-16-2024 Ferritin [Mass/Vol] 124 ng/mL Normal 37-417 [facility] Comment on above: Performed By: #### L 503.6150, L504.2610, L100.9950, L100.0100, L3410.2400, L3100.3425, L503.6550 ####[facility] [address] [place], [address] Gamma globulin Elph [Mass/Vo l]Ordered By: Robert Flores on 12-16-2024 Gamma Globulins (PENNY) 1.6 g/dL 0.4-1.[address] [facility] Gastroenterology Visit Repor ton 12-16-2024 Gastroenterology Visit Report [facility] [address] [place] [address] OFFICE VISIT Date of Service: 12/16/24 MR#: [id number] Acct: [id number] Name: JOSE SANDOVAL Rep #: [id number] : 1950 Provider: Robert Flores DO Age/Sex: 74/M Location: [facility] [place] Status: Signed Intake Vital Signs 06/10/24 08:57 12/01/24 14:15 Height 5 ft 9 in 5 ft 9 in Intake Visit Reasons: 6 M FU Allergies amoxicillin Allergy (Verified 12/01/24 13:23) Swelling nitroglycerin Allergy (Verified 12/01/24 13:23) SEVERE HYPOTENSION hydrocodone (From Vicodin) Adverse Reaction (Verified 12/01/24 13:23) Other Medications ???Medication ???Instructions ???Recorded ???Confirmed ???Type cholecalciferol (vitamin D3) 25 25 mcg PO DAILY supplement 1 12/16/24 History mcg (1,000 unit) tablet (Vitamin D3) multivitamin 1 tab PO DAILY supplement 08/13/21 12/16/24 History aspirin 81 mg tablet,delayed 81 mg PO QDAY #90 tabs 04/03/22 Rx release (Adult Aspirin Regimen) cetirizine 10 mg tablet (All Day 10 mg PO DAILY #90 tabs 11/06/23 0 12/16/24 Rx Allergy (cetirizine)) compress.amanda pendleton e,reg,lrg #2 ea 03/03/24 12/16/24 Rx amlodipine 5 mg tablet 5 mg PO QDAY #90 tabs 07/13/2405/05 Rx pioglitazone 30 mg tablet 30 mg PO DAILY #90 tabs 07/22/24 0 12/16/24 Rx lisinopril 20 mg tablet 20 mg PO DAILY hypertension #90 12/16/24 Rx tabs benzonatate 200 mg capsule 200 mg PO TID PRN cough #20 caps 0 11/21/24 12/16/24 Rx atorvastatin 40 mg tablet 40 mg PO QPM #30 tabs 11/29/2405/05 Rx glimepiride 2 mg tablet 2 mg PO DAILY 3 months #30 tabs 12/16/24 Rx metformin 1,000 mg tablet 1,000 mg PO BIDCM diabetes #60 tab s 11/29/24 12/16/24 Rx montelukast 10 mg tablet 10 mg PO QPM #30 tabs 11/29/2405/05 Rx pantoprazole 40 mg tablet,delayed 40 mg PO QAM GERD #30 tabs 12/16/24 Rx release (Protonix) MDI spacer #1 ea 12/01/24 12/16/24 Rx fluticasone furoate 100 1 inh inhalation QDAY #30 ea 12/0212/16/24 Rx mcg/actuation blister powder for inhalation (Arnuity Ellipta) Have you fallen in the past year?: No PFSH Medical History Acute bronchitis, unspecified Anemia Constipation Bilateral lower extremity edema Abdominal pain Obesity Health care maintenance Bruising Easy bruising Diverticulosis History of echocardiogram Cardiology follow-up encounter SOB (shortness of breath) on exertion Angina pectoris BPH (benign prostatic hyperplasia) Essential hypertension Mixed hyperlipidemia Type 2 diabetes mellitus Leg cramps Dizziness Wears glasses History of steroid therapy Kidney stones Back pain History of diverticulitis Non-smoker Leg cramps History of stress test Chest pain Ileus Appendicitis radial shortening Diabetes Surgical History History of surgery on arm History of colonoscopy History of left heart catheterization (LHC) ( 01/16/22) History of transurethral resection of prostate Hx of appendectomy H/O arthroscopic knee surgery H/O hernia repair History of carpal tunnel surgery History of knee replacement Family History Grandfather Heart disease Grandfather Heart disease Grandmother Heart disease Social History Smoking Status: Never smoker alcohol intake: never substance use type: does not use caffeine: Yes Type: carbonated beverages HPI HPI Details: JOSE SANDOVAL, is a 74 M who presents to the office today for follow up. Last office visit was on 03/26/2022; plan at that time was to treat gastritis and esophagitis with 1 month course of sucralfate, 2 months of twice daily dosing of pantoprazole 40 mg, then once daily pantoprazole. EGD had been performed due to atypical chest pain and dysphagia. No dysphagia since dilation of Schatzki ring. At his last visit we also discussed slow transit constipation and SCAD, recommended continued use of MiraLAX to treat the constipation as well as SCAD. He hasn't been using miralax regularly, and notes a recurrence of occas pain across lower abd that resolves with BM. This was what he had reported in the past when he didn't use Miralax. Hx of ileus. We treated SCAD with mesalamine. Denies nausea, vomiting, dysphagia, chest pain, early satiety, diarrhea, melena, hematochezia OV 9.6.24 Patient has been doing well. He has no heartburn symptoms at this time and continues taking pantoprazole daily. He is no longer having abdominal pain after losing some weight. He will have abdominal pain on occasional but is relieved with a bowel movement. He denies heartburn, (more content not included)... Normal [facility] Hematocrit Auto (Bld) [Volum e fraction]Ordered By: Robert Flores on 12-16-2024 Hematocrit (Bld) [Volume fraction] 41.2 % 40-54 [facility] Hemoglobin (Reticulocytes) [ Entitic mass]Ordered By: Robert Flores on 12-16-2024 Reticulocyte Hemoglobin Equivalent 35.4 pg High 30-35 [facility] Hemoglobin measurementOrdere d By: Robert Flores on 12-16-2024 Hemoglobin (Bld) [Mass/Vol] 13.7 g/dL 13.0-16.5 [facility] IgA [Mass/Vol]Ordered By: Ra katey Flores on 12-16-2024 Immunoglobulin A 68 mg/dL 61-437 [facility] IgG [Mass/Vol]Ordered By: Ra katey Flores on 12-16-2024 Immunoglobulin G 1748 mg/dL High 603-1613 [facility] Immature granulocytes/100 WB C Auto (Bld)Ordered By: Robert Flores on 12-16-2024 Immature granulocytes/100 WBC (Bld) 0.300 % 0.0-0.9 [facility] Comment on above: IG% - Immature Granu locytes (promyelocytes, myelocytes and metamyelocytes) > 1% indicates that a LEFT SHIFT is Present. Immature reticulocyte fracti onOrdered By: Robert Flores on 12-16-2024 Immature Reticulocyte Fraction 8.00 % 3.00-15.90 [facility] Immunoglobulin M measurement Ordered By: Robert Flores on 12-16-2024 Immunoglobulin M 38 mg/dL 15-143 [facility] Interpretation IEP [Interp]O rdered By: Robert Flores on 12-16-2024 Immunofixation Screen Comment High . [facility] Comment on above: Immunofixation shows IgG monoclonal protein with lambdalight chain specificity.PENNY also shows an asymmetrical IgA suggestive of a monoclonalprotein. Interpretation of serum or p lasma protein pattern by immunofixation (narrative resultOrdered By: Robert Flores on 12-16-2024 Protein Fractions Immunofixation Yony [Interp] 1.3 g/dL High Not Observed [facility] Ironon 12-16-2024 Iron [Mass/Vol] 92 ug/dL Normal 65-175 [facility] Comment on above: Performed By: #### L 503.6150, L504.2610, L100.9950, L100.0100, L3410.2400, L3100.3425, L503.6550 ####[facility] [address] [place], [address] Iron (Unsp spec) [Mass/Mass] Ordered By: Robert Flores on 12-16-2024 Iron [Mass/Vol] 92 ug/dL 65-175 [facility] Iron measurement (mass/mass) Ordered By: Robert Flores on 12-16-2024 Iron (Unsp spec) [Mass/Mass] 92 ug/dL 65-175 [facility] LDHon 12-16-2024 LDH 135 U/L Normal 87-241 [facility] Comment on above: Order Comment: 1 Performed By: #### L 503.6150, L504.2610, L100.9950, L100.0100, L3410.2400, L3100.3425, L503.6550 ####[facility] [address], [address] Lactate dehydrogenase (LDH) measurementOrdered By: Robert Flores on 12-16-2024 LDH [Catalytic activity/Vol] 135 U/L 87-241 [facility] Lymphocytes Auto (Unsp spec) [#/Vol]Ordered By: Robert Flores on 12-16-2024 Lymphocytes (Bld) [#/Vol] 1.84 10*3/uL 0.83-4.5 1 [facility] Lymphocytes/100 WBC Auto (Un sp spec)Ordered By: Robert Flores on 12-16-2024 Lymphocytes/100 WBC (Bld) 26.8 % 19-41 [facility] MCV (mean corpuscular volume ) determinationOrdered By: Robert Flores on 12-16-2024 MCV (RBC) [Entitic vol] 93.4 fL 80-94 [facility] Mean corpuscular hemoglobin (MCH) determinationOrdered By: Robert Flores on 12-16-2024 MCH (RBC) [Entitic mass] 31.1 pg 27.0-32.0 [facility] Mean corpuscular hemoglobin concentration (MCHC) determinationOrdered By: Robert Flores on 12-16-2024 MCHC (RBC) [Mass/Vol] 33.3 g/dL 32-[address] [facility] Mean platelet volume determi nationOrdered By: Robert Flores on 12-16-2024 Platelet mean volume (Bld) [Entitic vol] 9.3 fL 6.2-12.0 [facility] Monocyte percentageOrdered B y: Robert Flores on 12-16-2024 Monocytes/100 WBC (Bld) 7.7 % 0-10 [facility] Neutrophil percentageOrdered By: Robert Flores on 12-16-2024 Neutrophils/100 WBC (Bld) 58.5 % 47-70 [facility] No Panel InformationOrdered By: Robert Flores on 12-16-2024 Addendum Document Comment . [facility] Comment on above: Protein electrophore sis scan will follow via computer,mail, or internet marketing manager delivery.Performed at: [address] [id number] Director: Minh Maradiaga PhD, Phone: [phone] Nucleated red blood cell per centageOrdered By: Robert Flores on 12-16-2024 Nucleated RBC/100 WBC (Bld) [Ratio] 0 % 0-5 [facility] Platelet countOrdered By: Ra katey Flores on 12-16-2024 Platelets (Bld) [#/Vol] 406 10*3/uL 150-450 [facility] Protein Fractions Immunofixa tion Yony [Interp]Ordered By: Robert Flores on 12-16-2024 M-Rudolph (PENNY) 1.3 g/dL High Not Observed [facility] RBC Auto (Bld) [#/Vol]Ordere d By: Robert Flores on 12-16-2024 RBC (Bld) [#/Vol] 4.41 10*6/uL Low 4.6-6.2 [facility] Retic Panelon 12-16-2024 IM RET FRACTION 8.00 Normal 3.00-15.90 [facility] Comment on above: Performed By: #### L 503.6150, L504.2610, L100.9950, L100.0100, L3410.2400, L3100.3425, L503.6550 ####[facility] [address] [place], [place], [phone](912) RET-HE 35.4 pg High 30-35 [facility] Comment on above: Performed By: #### L 503.6150, L504.2610, L100.9950, L100.0100, L3410.2400, L3100.3425, L503.6550 ####[facility] [address] [place], [place], [phone]) Retic Count 1.04 Normal 0.5-1.5 [facility] Comment on above: Performed By: #### L 503.6150, L504.2610, L100.9950, L100.0100, L3410.2400, L3100.3425, L503.6550 ####[facility] [address] [place], [place], [id number] Reticulocyte hemoglobin equi valent (RET-He) measurementOrdered By: Robert Flores on 12-16-2024 Hemoglobin (Reticulocytes) [Entitic mass] 35.4 pg High 30-35 [facility] Reticulocytes Auto (Bld) [#/ Vol]Ordered By: Robert Flores on 12-16-2024 Reticulocyte Count 1.04 % 0.5-1.5 [facility] Reticulocytes/100 RBC (Bld) 1.04 % 0.5-1.5 [facility] Serum albumin/globulin ratio Ordered By: Robert Flores on 12-16-2024 Albumin/Globulin (PENNY) 1.2 0.7-1.7 [facility] Serum globulin measurement ( mass/volume)Ordered By: Robert Flores on 12-16-2024 Globulin (S) [Mass/Vol] 3.6 g/dL 2.2-3.9 [facility] Serum or plasma IgA measurem ent (mass/volume)Ordered By: Robert Flores on 12-16-2024 IgA [Mass/Vol] 68 mg/dL 61-437 [facility] Serum or plasma IgG measurem ent (mass/volume)Ordered By: Robert Flores on 12-16-2024 IgG [Mass/Vol] 1748 mg/dL High 603-1613 [facility] Serum or plasma alpha 1 glob ulin measurement by electrophoresis (mass/volume)Ordered By: Robert Flores on 12-16-2024 Alpha 1 globulin Elph [Mass/Vol] 0.2 g/dL 0.0-0.4 [facility] Alpha 1 globulin Elph [Mass/Vol] 0.8 g/dL 0.4-1.0 [facility] Serum or plasma beta globuli n measurement by electrophoresis (mass/volume)Ordered By: Robert Flores on 12-16-2024 Beta globulin Elph [Mass/Vol] 0.9 g/dL 0.7-1.3 [facility] Serum or plasma ferritin darrell surement (mass/volume)Ordered By: Robert Flores on 12-16-2024 Ferritin [Mass/Vol] 124 ng/mL 37-417 [facility] Serum or plasma gamma globul in measurement by electrophoresis (mass/volume)Ordered By: Robert Flores on 12-16-2024 Gamma globulin Elph [Mass/Vol] 1.6 g/dL 0.4-1.8 [facility] Serum or plasma immunoelectr ophoresis interpretation (nominal result)Ordered By: Robert Flores on 12-16-2024 Interpretation IEP [Interp] Comment High . [facility] Comment on above: Immunofixation shows IgG monoclonal protein with lambdalight chain specificity.PENNY also shows an asymmetrical IgA suggestive of a monoclonalprotein. Serum or plasma protein jhon urement (mass/volume)Ordered By: Robert Flores on 12-16-2024 Protein [Mass/Vol] 7.6 g/dL 6.0-8.5 [facility] Serum tissue transglutaminas e (tTG) IgA antibody assay (units/volume)Ordered By: Robert Flores on 12-16-2024 tTG IgA Qn (S) <2 U/mL 0-3 [facility] Comment on above: Negative 0 - 3 Weak Positive 4 - 10 Positive >10 Tissue Transglutaminase (tTG) has been identified as the endomysial antigen. Studies have demonstr- ated that endomysial IgA antibodies have over 99% specificity for gluten sensitive enteropathy. White blood cell (WBC) count Ordered By: Robert Flores on 12-16-2024 WBC (Bld) [#/Vol] 6.9 10*3/uL 4.4-11.0 [facility] tTG IgA Qn (S)Ordered By: Ra katey Flores on 12-16-2024 Tissue Transglutaminase IgA Ab <2 U/mL 0-3 [facility] Comment on above: Negative 0 - 3 Weak Positive 4 - 10 Positive >10 Tissue Transglutaminase (tTG) has been identified as the endomysial antigen. Studies have demonstr- ated that endomysial IgA antibodies have over 99% specificity for gluten sensitive enteropathy. Chest PA and Lateralon 12-01 Chest PA and Lateral [facility] Imaging Services [address] [place], [place] [id number] Chest PA and Lateral MR#: [id number] Acct: [id number] Name: JOSE SANDOVAL Rep #: [id number] : 1950 M 74 From: Troy Davila i, DO PCP: Dr. Timmy Floyd MD Status: DEP AMB Study: Chest PA and Lateral Date of Exam: 12/01/24 Exam# [id number] Ordering Dr: Sean Jackson PA PROCEDURE: PA and lateral chest radiographs, two views REASON FOR EXAM: Cough TECHNIQUE: PA and lateral chest radiographs were obtained. COMPARISON: 06/29/2024 FINDINGS: The cardiomediastinal silhouette is stable. Similar mild elevation right hemidiaphragm. Bones are osteopenic with degenerative changes in the spine. Some mild scarring or subsegmental atelectasis at the lung bases is similar. No focal airspace consolidation or pleural effusion. RAD/Chest PA and Lateral IMPRESSION: Similar mild scarring or subsegmental atelectasis at the lung bases. No focal pneumonia or sizable pleural effusion. If there are persistent symptoms or clinical concern, short-term follow-up CT evaluation may be considered. [facility] CC: Dr. Timmy Floyd MD; SUJATA Alvarenga Architectural Draftsperson: Signed Normal [facility] Internal Medicine Office Vis iton 12-01-2024 Internal Medicine Office Visit [facility] [place] [address] [place] [address] OFFICE VISIT Date of Service: 12/01/24 MR#: [id number] Acct: [id number] Name: JOSE SANDOVAL Rep #: [id number] : 1950 Provider: SUJATA Alvarenga Age/Sex: 74/M Location: [facility] Status: Signed Intake Vital Signs 11/11/24 09:50 12/01/24 13:28 Height 5 ft 9 in 5 ft 9 in Weight: 195 lb 197 lb BMI 28.8 29.0 BP 125/74 H 132/78 H Blood Pressure Location Lt brachial Lt brachial Position Sitting Sitting Respiration 18 16 Pulse 70 86 Pulse Source Monitor Monitor Temp 97.4 F L Temp Source Temporal Pulse Oximetry (%) 94 95 Oxygen Delivery Method room air Intake Visit Reasons: BRONCHITIS FU Chief Complaint: fu Element Burner Required: No Accompanied by: Self Is patient in pain?: No Allergies amoxicillin Allergy (Verified 12/01/24 13:23) Swelling nitroglycerin Allergy (Verified 12/01/24 13:23) SEVERE HYPOTENSION hydrocodone (From Vicodin) Adverse Reaction (Verified 12/01/24 13:23) Other Medications ???Medication ???Instructions ???Recorded ???Confirmed ???Type cholecalciferol (vitamin D3) 25 25 mcg PO DAILY supplement 1 12/01/24 History mcg (1,000 unit) tablet (Vitamin D3) multivitamin 1 tab PO DAILY supplement 08/13/21 12/01/24 History aspirin 81 mg tablet,delayed 81 mg PO QDAY #90 tabs 04/03/22 Rx release (Adult Aspirin Regimen) cetirizine 10 mg tablet (All Day 10 mg PO DAILY #90 tabs 11/06/23 0 12/01/24 Rx Allergy (cetirizine)) compress.helder,amanda e,reg,lrg #2 ea 03/03/24 12/01/24 Rx amlodipine 5 mg tablet 5 mg PO QDAY #90 tabs 07/13/24 Rx pioglitazone 30 mg tablet 30 mg PO DAILY #90 tabs 07/22/24 0 12/01/24 Rx lisinopril 20 mg tablet 20 mg PO DAILY hypertension #90 12/01/24 Rx tabs benzonatate 200 mg capsule 200 mg PO TID PRN cough #20 caps 0 11/21/24 12/01/24 Rx atorvastatin 40 mg tablet 40 mg PO QPM #30 tabs 11/29/24 Rx glimepiride 2 mg tablet 2 mg PO DAILY 3 months #30 tabs 12/01/24 Rx metformin 1,000 mg tablet 1,000 mg PO BIDCM diabetes #60 tab s 11/29/24 12/01/24 Rx montelukast 10 mg tablet 10 mg PO QPM #30 tabs 11/29/24 Rx pantoprazole 40 mg tablet,delayed 40 mg PO QAM GERD #30 tabs 12/01/24 Rx release (Protonix) MDI spacer #1 ea 12/01/24 12/01/24 Rx fluticasone propionate 110 2 puff inhalation BID #12 grams 12/01/24 Rx mcg/actuation HFA aerosol inhaler Have you fallen in the past year?: No Nurse's Note: patient is still coughing and has completed the antibiotic questions concerning need for cxr [facility] Medical History Acute bronchitis, unspecified Anemia Constipation Bilateral lower extremity edema Abdominal pain Obesity Health care maintenance Bruising Easy bruising Diverticulosis History of echocardiogram Cardiology follow-up encounter SOB (shortness of breath) on exertion Angina pectoris BPH (benign prostatic hyperplasia) Essential hypertension Mixed hyperlipidemia Type 2 diabetes mellitus Leg cramps Dizziness Wears glasses History of steroid therapy Kidney stones Back pain History of diverticulitis Non-smoker Leg cramps History of stress test Chest pain Ileus Appendicitis radial shortening Diabetes Surgical History History of surgery on arm History of colonoscopy History of left heart catheterization (LHC) ( 01/16/22) History of transurethral resection of prostate Hx of appendectomy H/O arthroscopic knee surgery H/O hernia repair History of carpal tunnel surgery History of knee replacement Family History Grandfather Heart disease Grandfather Heart disease Grandmother Heart disease Social History Smoking Status: Never smoker alcohol intake: never substance use type: does not use caffeine: Yes Type: carbonated beverages HPI HPI Chief Complaint: fu Details: JOSE SANDOVAL, is a 74 M who presents to the office today for f/u on his bronchitis. [facility] and placed on antibiotics. He initially presented due to a bad cough as well as some headache. He had been coughing at that point for an entire month. He states that the cough is worse in the evenings and and first thing AM. ROS Const Constitutional: No body ache, excessive sweating, fatigue, fever(s), frequent falls, headache(s), snoring, weakness, weight change, sleep problems or change in appetite Eyes Eyes: No blurry vision, change in vision, eye pain or Light sensitivity ENT ENT: No abnormal hearing, ear or mastoid palmira (more content not included)... Normal [facility] Urgent Care Visit Reporton 0 11-21-2024 Urgent Care Visit Report [facility] [address], [address] [place] [address] OFFICE VISIT Date of Service: 11/21/24 MR#: [id number] Acct: [id number] Name: JOSE SANDOVAL Rep #: [id number] : 1950 Provider: SUJATA Fernandez Age/Sex: 74/M Location: [facility] Status: Signed Intake Vital Signs 11/11/24 09:50 11/21/24 15:42 11/21/24 15:52 Height 5 ft 9 in Weight: 195 lb BMI 28.8 BP 125/74 H 130/78 H Blood Pressure Location Lt brachial Rt brachial Position Sitting Sitting Respiration 18 12 Pulse 70 93 Pulse Source Monitor NIBP Temp 98.2 F Temp Source Oral Pulse Oximetry (%) 94 94 98 Oxygen Delivery Method room air room air Comment after encouraging cough Intake Visit Reasons: COUGH X 1 MONTH Chief Complaint: cough x1 month Allergies amoxicillin Allergy (Verified 11/21/24 15:30) Swelling nitroglycerin Allergy (Verified 11/21/24 15:30) SEVERE HYPOTENSION hydrocodone (From Vicodin) Adverse Reaction (Verified 11/21/24 15:30) Other Medications ???Medication ???Instructions ???Recorded ???Confirmed ???Type cholecalciferol (vitamin D3) 25 25 mcg PO DAILY supplement 1 11/21/24 History mcg (1,000 unit) tablet (Vitamin D3) multivitamin 1 tab PO DAILY supplement 08/13/21 11/21/24 History aspirin 81 mg tablet,delayed 81 mg PO QDAY #90 tabs 04/03/22 Rx release (Adult Aspirin Regimen) cetirizine 10 mg tablet (All Day 10 mg PO DAILY #90 tabs 11/06/23 0 11/21/24 Rx Allergy (cetirizine)) montelukast 10 mg tablet 10 mg PO QPM #90 tabs 12/03/2308/05 Rx compress.helder,amanda e,reg,lrg #2 ea 03/03/24 11/21/24 Rx pantoprazole 40 mg tablet,delayed 40 mg PO QAM GERD #90 tabs 11/21/24 Rx release (Protonix) simvastatin 40 mg tablet 40 mg PO QHS cholesterol #90 tabs 06/30/24 11/21/24 Rx amlodipine 5 mg tablet 5 mg PO QDAY #90 tabs 07/13/2408/05 Rx pioglitazone 30 mg tablet 30 mg PO DAILY #90 tabs 07/22/24 0 11/21/24 Rx lisinopril 20 mg tablet 20 mg PO DAILY hypertension #90 11/21/24 Rx tabs glimepiride 2 mg tablet 2 mg PO DAILY 3 months #90 tabs 11/21/24 Rx metformin 1,000 mg tablet 1,000 mg PO BIDCM diabetes #180 11/21/24 Rx tabs azithromycin 250 mg tablet See Rx Instructions PO .COMPLEX #6 11/21/24 11/21/24 Rx tabs benzonatate 200 mg capsule 200 mg PO TID PRN cough #20 caps 0 11/21/24 11/21/24 Rx Have you fallen in the past year?: No Nurse's Note: patient here for cough for a month. [facility] Medical History (Updated 11/21/24 @ 16:31 by Quirino ERNST, PA) Acute bronchitis, unspecified Anemia Constipation Bilateral lower extremity edema Abdominal pain Obesity Health care maintenance Bruising Easy bruising Diverticulosis History of echocardiogram Cardiology follow-up encounter SOB (shortness of breath) on exertion Angina pectoris BPH (benign prostatic hyperplasia) Essential hypertension Mixed hyperlipidemia Type 2 diabetes mellitus Leg cramps Dizziness Wears glasses History of steroid therapy Kidney stones Back pain History of diverticulitis Non-smoker Leg cramps History of stress test Chest pain Ileus Appendicitis radial shortening Diabetes Surgical History History of surgery on arm History of colonoscopy History of left heart catheterization (LHC) ( 01/16/22) History of transurethral resection of prostate Hx of appendectomy H/O arthroscopic knee surgery H/O hernia repair History of carpal tunnel surgery History of knee replacement Family History Grandfather Heart disease Grandfather Heart disease Grandmother Heart disease Social History Smoking Status: Never smoker alcohol intake: never substance use type: does not use caffeine: Yes Type: carbonated beverages HPI HPI Chief Complaint: cough x1 month Details: JOSE SANDOVAL, is a 74 M who presents to the office today for initial evaluation approximately 1 month history of persistent cough which is intermittently moist and productive purulent, noting cough is worse when supine. No complaints of fever, chills, sweats, lightheadedness/dizzi ness, nausea/vomiting, or chest pressure with shortness of breath or dyspnea on exertion. Non-smoker. No ktkc-flg-zakkxga products taken to assist. No other associated symptoms and no other alleviating/aggravati ng factors. zpack benzon ROS Const Constitutional: No other (As above) Exam Const General: cooperative, healthy appearing and no acute distress Nutritional Appearance: average body habitus Orientation: alert an (more content not included)... Normal [facility] Cardiology Visit Reporton Cardiology Visit Report [facility] [address] [place], [place] [address]. [address] [place] [address] OFFICE VISIT Date of Service: 11/11/24 MR#: [id number] Acct: [id number] Name: JOSE SANDOVAL Rep #: [id number] : 1950 Provider: SUJATA Mcneil Age/Sex: 74/M Location: [facility] Status: Signed HPI HPI History of Present Illness Details: Jose Sandoval is a 74-year-old white male who presents today for outpatient cardiovascular follow- up visit. He initially established with us based upon concerns of exertional chest discomfort concerning for stable exertional angina pectoris as well as palpitations. Patient underwent a heart catheterization on 01/16/2022 that showed non-angiographically significant multivessel coronary artery disease. He underwent a stress test in June of this year, which was abnormal. He underwent a coronary catheterization on 07/15/2024 which demonstrated normal coronary arteries. From a cardiac standpoint, patient is doing well. He does not have any chest discomfort/heaviness/ tightness. His exercise tolerance is stable for his age. He does not have any worsening symptoms of shortness of breath. He denies any PND. He does not have any orthopnea. He does not have any symptoms of congestive heart failure. He does not have any palpitations that he is aware of. He does not have any lightheadedness or dizziness. He does not have any near-syncope or syncope. He does not have any lower extremity edema. He does not have any symptoms of claudication. Intake Vital Signs 08/09/24 08:30 11/11/24 09:50 Height 5 ft 9 in 5 ft 9 in Weight: 195 lb BMI 28.8 BP 125/74 H Blood Pressure Location Lt brachial Position Sitting Respiration 18 Pulse 70 Pulse Source Monitor Pulse Oximetry (%) 94 Intake Visit Reasons: 3 M FU Element Burner Required: No Is patient in pain?: No Allergies amoxicillin Allergy (Verified 12/01/24 13:23) Swelling nitroglycerin Allergy (Verified 12/01/24 13:23) SEVERE HYPOTENSION hydrocodone (From Vicodin) Adverse Reaction (Verified 12/01/24 13:23) Other Medications ???Medication ???Instructions ???Recorded ???Confirmed ???Type cholecalciferol (vitamin D3) 25 25 mcg PO DAILY supplement 1 12/01/24 History mcg (1,000 unit) tablet (Vitamin D3) multivitamin 1 tab PO DAILY supplement 08/13/21 12/01/24 History aspirin 81 mg tablet,delayed 81 mg PO QDAY #90 tabs 04/03/22 Rx release (Adult Aspirin Regimen) cetirizine 10 mg tablet (All Day 10 mg PO DAILY #90 tabs 11/06/23 0 12/01/24 Rx Allergy (cetirizine)) compress.helder,amanda e,reg,lrg #2 ea 03/03/24 12/01/24 Rx amlodipine 5 mg tablet 5 mg PO QDAY #90 tabs 07/13/24 Rx pioglitazone 30 mg tablet 30 mg PO DAILY #90 tabs 07/22/24 0 12/01/24 Rx lisinopril 20 mg tablet 20 mg PO DAILY hypertension #90 12/01/24 Rx tabs benzonatate 200 mg capsule 200 mg PO TID PRN cough #20 caps 0 11/21/24 12/01/24 Rx atorvastatin 40 mg tablet 40 mg PO QPM #30 tabs 11/29/24 Rx glimepiride 2 mg tablet 2 mg PO DAILY 3 months #30 tabs 12/01/24 Rx metformin 1,000 mg tablet 1,000 mg PO BIDCM diabetes #60 tab s 11/29/24 12/01/24 Rx montelukast 10 mg tablet 10 mg PO QPM #30 tabs 11/29/24 Rx pantoprazole 40 mg tablet,delayed 40 mg PO QAM GERD #30 tabs 12/01/24 Rx release (Protonix) MDI spacer #1 ea 12/01/24 12/01/24 Rx fluticasone furoate 100 1 inh inhalation QDAY #30 ea 12/02 Rx mcg/actuation blister powder for inhalation (Arnuity Ellipta) Have you fallen in the past year?: No PFSH Medical History Acute bronchitis, unspecified Anemia Constipation Bilateral lower extremity edema Abdominal pain Obesity Health care maintenance Bruising Easy bruising Diverticulosis History of echocardiogram Cardiology follow-up encounter SOB (shortness of breath) on exertion Angina pectoris BPH (benign prostatic hyperplasia) Essential hypertension Mixed hyperlipidemia Type 2 diabetes mellitus Leg cramps Dizziness Wears glasses History of steroid therapy Kidney stones Back pain History of diverticulitis Non-smoker Leg cramps History of stress test Chest pain Ileus Appendicitis radial shortening Diabetes Surgical History History of surgery on arm History of colonoscopy History of left heart catheterization (LHC) ( 01/16/22) History of transurethral resection of prostate Hx of appendectomy H/O arthroscopic knee surgery H/O hernia repair History of carpal tunnel surgery History of knee replacement Family History Grandfather Heart diseas (more content not included)... Normal [facility] Cardiology Visit Reporton Cardiology Visit Report [facility] [address] [place], [place] [address] OFFICE VISIT Date of Service: 08/09/24 MR#: [id number] Acct: [id number] Name: JOSE SANDOVAL Rep #: [id number] : 1950 Provider: TYSON Duval rts Age/Sex: 73/M Location: [facility] Status: Signed HPI [facility] History of Present Illness Details: Jose Sandoval is a 73-year-old white male who presents today for outpatient cardiovascular follow- up visit. He initially established with us based upon concerns of exertional chest discomfort concerning for stable exertional angina pectoris as well as palpitations. Patient underwent a heart catheterization on 01/16/2022 that showed non-angiographically significant multivessel coronary artery disease. He underwent a stress test in June of this year, which was abnormal. He underwent a coronary catheterization on 07/15/2024 which demonstrated normal coronary arteries. From a cardiac standpoint, the patient is doing well. He does acknowledge occasional palpitations-he describes this as a fluttering /racing sensation. He does get short of breath along with this. He denies chest pain, pressure or heaviness. He does have occasional SOB with exertion. He denies Orthopnea, and PND. He does not have bleeding issues; no blood in urine, stool or nosebleeds. He denies any decrease in energy level, myalgias, or claudication. He does not have edema, or sudden weight gain. He denies dizziness, lightheadedness, syncopal or near syncopal episodes, and headaches. He states that he was in [place] about one week ago, [place] on the [place], and he then was sitting on the beach afterwards and blacked out. Intake Vital Signs 06/10/24 08:57 07/13/24 11:45 08/09/24 08:30 Height 5 ft 9 in 5 ft 9 in 5 ft 9 in Weight: 189 lb BMI 27.8 BP 121/71 H Blood Pressure Location Lt brachial Position Sitting Respiration 18 Pulse 71 Pulse Source Monitor Pulse Oximetry (%) 97 Intake Visit Reasons: 1 Y FU/PREV PFM Element Burner Required: No Is patient in pain?: No Allergies amoxicillin Allergy (Verified 08/09/24 08:51) Swelling nitroglycerin Allergy (Verified 08/09/24 08:51) SEVERE HYPOTENSION hydrocodone (From Vicodin) Adverse Reaction (Verified 08/09/24 08:51) Other Medications ???Medication ???Instructions ???Recorded ???Confirmed ???Type cholecalciferol (vitamin D3) 25 25 mcg PO DAILY supplement 08/13/21 08/09/24 History mcg (1,000 unit) tablet (Vitamin D3) multivitamin 1 tab PO DAILY supplement 08/13/21 08/09/24 History aspirin 81 mg tablet,delayed 81 mg PO QDAY #90 tabs 04/03/22 08/09/24 Rx release (Adult Aspirin Regimen) cetirizine 10 mg tablet (All Day 10 mg PO DAILY #90 tabs 11/06/23 08/09/24 Rx Allergy (cetirizine)) montelukast 10 mg tablet 10 mg PO QPM #90 tabs 12/03/23 08/09/24 Rx compress.amanda pendleton e,reg,lrg #2 ea 03/03/24 08/09/24 Rx pantoprazole 40 mg tablet,delayed 40 mg PO QAM GERD #90 tabs 04/26/24 08/09/24 Rx release (Protonix) glimepiride 2 mg tablet 2 mg PO DAILY 3 months #90 tabs 05/23/24 08/09/24 Rx metformin 1,000 mg tablet 1,000 mg PO BIDCM diabetes #180 05/23/24 08/09/24 Rx tabs simvastatin 40 mg tablet 40 mg PO QHS cholesterol #90 tabs 06/30/24 08/09/24 Rx amlodipine 5 mg tablet 5 mg PO QDAY #90 tabs 07/13/24 08/09/24 Rx pioglitazone 30 mg tablet 30 mg PO DAILY #90 tabs 07/22/24 08/09/24 Rx lisinopril 20 mg tablet 20 mg PO DAILY hypertension #90 08/09/24 08/09/24 Rx tabs Have you fallen in the past year?: Yes [facility] Medical History (Reviewed 08/09/24 @ 09:40 by Kathleen Grande [employer], [employer] NURSE-C) Anemia Constipation Bilateral lower extremity edema Abdominal pain Obesity Health care maintenance Bruising Easy bruising Diverticulosis History of echocardiogram Cardiology follow-up encounter SOB (shortness of breath) on exertion Angina pectoris BPH (benign prostatic hyperplasia) Essential hypertension Mixed hyperlipidemia Type 2 diabetes mellitus Leg cramps Dizziness Wears glasses History of steroid therapy Kidney stones Back pain History of diverticulitis Non-smoker Leg cramps History of stress test Chest pain Ileus Appendicitis radial shortening Diabetes Surgical History History of surgery on arm History of colonoscopy History of left heart catheterization (LHC) ( 01/16/22) History of transurethral resection of prostate Hx of appendectomy H/O arthroscopic knee surgery H/O hernia repair History of carpal tunnel surgery History of knee replacement Family History (Reviewed 08/09/24 @ 09:40 by Kathleen Grande [employer]SE, [employer] NURSE-C) Grandfather Heart disease Grandfather Heart disease Grandmother Heart disease Social History ... Normal [facility] Cardiac Cath Diagnosticon Cardiac Cath Diagnostic [facility] Imaging Services [address] [place] [address] Cardiac Cath Diagnostic MR#: [id number] Acct: [id number] Name: JOSE SANDOVAL Rep #: [id number] : 1950 73 From: Kelby Seth MD PCP: Dr. Timmy Floyd MD Status:[facility] Patient Name: JOSE SANDOVAL [facility] Study Date: 07/13/2024 Performing: Kelby Seth MD Ht: 69 inches 175.26 cm : 1950 Wt: 187.2 lbs 84.82 kg Age: 73 Gender: male BSA: 2.01 PROCEDURE(S) PERFORMED DC01-(10784)LHC/COR/L V CLINICAL PROFILE AND INDICATIONS Indications: Worsening Angina Heart Failure: None Stress/Imaging Date: 06/17/24 CAD Presentations: Stable angina. CONCLUSIONS Normal coronary arteries Normal LV size, wall motion,and systolic function RECOMMENDATIONS Medical therapy DESCRIPTION OF PROCEDURE The patient arrived to the procedure lab. The risks and benefits of the procedure as well as a full description of our services here and current unavailability of surgical backup were fully explained to the patient and/or their significant other prior to the catheterization. The Timeout was completed, verifying the correct patient and procedure. The patient's procedural site was prepped and draped in the usual fashion. Local anesthetic was given subcutaneously to right radial region with Lidocaine 2%. Using a modified Seldinger technique, arterial access was obtained via the right radial artery, a 6Fr sheath was inserted. Left Coronary Artery selective angiography was performed in multiple views using a 5 Fr. 4.0 [place] catheter. Right Coronary Artery selective angiography was then performed in multiple views using a 5 Fr. 4.0 [place] catheter. Left Ventriculography was performed in MCCULLOUGH projection using a 5 Fr. Pigtail catheter. LV to AO pullback pressures were then recorded.The arterial sheath was pulled and a TR Band was applied for hemostasis CORONARY ANGIOGRAPHY DOMINANCE: Left Dominant LEFT HEART ASSESSMENT Left Ventricular Ejection Fraction: by LV Gram 60 % Normal LV wall motion Normal Left Ventricular systolic function LEFT MAIN: Angiographically normal LEFT ANTERIOR DESCENDING ARTERY: Mild luminal irregularities CIRCUMFLEX ARTERY: Mild luminal irregularities RIGHT CORONARY ARTERY: No significant disease noted COMPLICATIONS No Complications PROCEDURE MEDICATIONS Versed 1 mg IV Fentanyl 50 mcg IV Benadryl 25 mg IV @ 07/13/2024 13:05:37 Heparin given IA 07/13/2024 12:51:58 Verapamil 2.5mg, 3000 units of Heparin given IA 07/13/2024 12:51:58 SUMMARY OF HEMODYNAMIC DATA Time AIR REST ECG 11:49:49 ECG 12:31:42 AO 159/80 (113) SA 12:55:34 LV 146/14, 25 12:59:40 LV 131/15, 19 12:59:48 LV 150/42, 0 13:00:12 LV 144/15, 25 13:00:20 LVp 140/14, 24 13:00:24 AOp 149/69 (102) 13:00:31 AIR REST 13:13:18 Signed By Kelby Seth MD On 07/15/2024 10:10:38 Signed By Kelby Seth MD On 07/13/2024 13:15:42 Kelby Seth MD 07/15/24 1011 Date Kelby Youngignkatelyn Signature: Date (if indicated) CC: Dr. Kelby Seth MD; Dr. Timmy Floyd MD Date Dictated: 07/13/24 1243 Date Transcribed: 07/15/24 1010 Architectural Draftsperson: [place] Signed Normal [facility] Basic Metabolic Profile (BMP )on 06-29-2024 BUN/CRE 23.3 RATIO High 10-20 [facility] Comment on above: Performed By: #### L 500.2500, L100.0100, L300.3900 ####[facility] [address] [place], [address] CA,Total 9.7 mg/dL Normal 8.5-10.1 [facility] Comment on above: Performed By: #### L 500.2500, L100.0100, L300.3900 ####[facility] [address] [place], [address] Chloride [Moles/Vol] 104 mmol/L Normal 98-107 [facility] Comment on above: Performed By: #### L 500.2500, L100.0100, L300.3900 ####[facility] [address] [place], [address] CO2 [Moles/Vol] 27.0 mmol/L Normal 21.0-32.0 [facility] Comment on above: Performed By: #### L 500.2500, L100.0100, L300.3900 ####[facility] [address] [place], [address] Creatinine [Mass/Vol] 1.29 mg/dL Normal 0.70-1.[address] [facility] Comment on above: Result Comment: The validity of the calculated GFR GFRAA in patients over 70 years has not been determined. Clinical correlation is essential. Performed By: #### L 500.2500, L100.0100, L300.3900 ####[facility] [address] [place], [address] EST GFR - AA 71 mL/min Normal >60 [facility] Comment on above: Result Comment: Afri can Lao GFR Calc Performed By: #### L 500.2500, L100.0100, L300.3900 ####[facility] [address] [place], [address] GAP 7 Normal 5-15 [facility] Comment on above: Performed By: #### L 500.2500, L100.0100, L300.3900 ####[facility] [address] [place], [address] GFR/1.73 sq M.predicted among non-blacks MDRD (S/P/Bld) [Vol rate/Area] 58 mL/min/{1.73_m2} Low >60 [facility] Comment on above: Result Comment: Non- GFR Calc Performed By: #### L 500.2500, L100.0100, L300.3900 ####[facility] [address] [place], [address] Glucose [Mass/Vol] 115 mg/dL High 74-106 [facility] Comment on above: Result Comment: Fast ing Glucose result from 100 to 125 mg/dL suggests IMPAIRED HOMEOSTASIS per A.D.A. criteria. Performed By: #### L 500.2500, L100.0100, L300.3900 ####[facility] [address] [place], [address] Potassium [Moles/Vol] 4.4 mmol/L Normal 3.5-5.[address] [facility] Comment on above: Performed By: #### L 500.2500, L100.0100, L300.3900 ####[facility] [address] [place], [address] Sodium [Moles/Vol] 138 mmol/L Normal 136-145 [facility] Comment on above: Performed By: #### L 500.2500, L100.0100, L300.3900 ####[facility] [address] [place], [address] Urea nitrogen [Mass/Vol] 30 mg/dL High 7-18 [facility] Comment on above: Performed By: #### L 500.2500, L100.0100, L300.3900 ####[facility] [address] [place], [address] CBC W/Diff, Automatedon 06-12 Absolute Lymph 1.59 X10 3/uL Normal 0.83-4.51 [facility] Comment on above: Performed By: #### L 500.2500, L100.0100, L300.3900 ####[facility] [address] [place], [address] Absolute Neut 3.2 X10 3/uL Normal 2.0-7.7 [facility] Comment on above: Performed By: #### L 500.2500, L100.0100, L300.3900 ####[facility] [address] [place], [address] Basophils/100 WBC (Bld) 0.4 % Normal 0-1 [facility] Comment on above: Performed By: #### L 500.2500, L100.0100, L300.3900 ####[facility] [address] [place], [address] Eosinophils/100 WBC (Bld) 1.9 % Normal 0-5 [facility] Comment on above: Performed By: #### L 500.2500, L100.0100, L300.3900 ####[facility] [address] [place], [address] Erythrocyte distribution width (RBC) [Ratio] 13.1 % Normal 11.6-14.6 [facility] Comment on above: Performed By: #### L 500.2500, L100.0100, L300.3900 ####[facility] [address] [place], [address] Hematocrit (Bld) [Volume fraction] 36.0 % Low 40-54 [facility] Comment on above: Performed By: #### L 500.2500, L100.0100, L300.3900 ####[facility] [address] [place], [address] Hemoglobin (Bld) [Mass/Vol] 11.9 g/dL Low 13.0-16.5 [facility] Comment on above: Performed By: #### L 500.2500, L100.0100, L300.3900 ####[facility] [address] [place], [address] IG% 0.400 Normal 0.0-0.9 [facility] Comment on above: Result Comment: IG% - Immature Granulocytes (promyelocytes, myelocytes and metamyelocytes) > 1% indicates that a LEFT SHIFT is Present. Performed By: #### L 500.2500, L100.0100, L300.3900 ####[facility] [address] [place], [address] Lymphocytes/100 WBC (Bld) 29.8 % Normal 19-41 [facility] Comment on above: Performed By: #### L 500.2500, L100.0100, L300.3900 ####[facility] [address] [place], [address] MCH (RBC) [Entitic mass] 31.1 pg Normal 27.0-32.0 [facility] Comment on above: Performed By: #### L 500.2500, L100.0100, L300.3900 ####[facility] [address] [place], [address] MCHC (RBC) [Mass/Vol] 33.1 g/dL Normal 32-[address] [facility] Comment on above: Performed By: #### L 500.2500, L100.0100, L300.3900 ####[facility] [address] [place], [address] MCV (RBC) [Entitic vol] 94.0 fL Normal 80-94 [facility] Comment on above: Performed By: #### L 500.2500, L100.0100, L300.3900 ####[facility] [address] [place], [address] Monocytes/100 WBC (Bld) 7.7 % Normal 0-10 [facility] Comment on above: Performed By: #### L 500.2500, L100.0100, L300.3900 ####[facility] [address] [place], [address] Neutrophils/100 WBC (Bld) 59.8 % Normal 47-70 [facility] Comment on above: Performed By: #### L 500.2500, L100.0100, L300.3900 ####[facility] [address] [place], [address] Nucleated RBC (Bld) [#/Vol] 0 10*3/uL Normal 0-5 [facility] Comment on above: Performed By: #### L 500.2500, L100.0100, L300.3900 ####[facility] [address] [place], [address] Platelet mean volume (Bld) [Entitic vol] 9.2 fL Normal 6.2-12.0 [facility] Comment on above: Performed By: #### L 500.2500, L100.0100, L300.3900 ####[facility] [address] [place], [address] Platelets (Bld) [#/Vol] 318 10*3/uL Normal 150-450 [facility] Comment on above: Performed By: #### L 500.2500, L100.0100, L300.3900 ####[facility] [address] [place], [address] RBC (Bld) [#/Vol] 3.83 10*6/uL Low 4.6-6.2 [facility] Comment on above: Performed By: #### L 500.2500, L100.0100, L300.3900 ####[facility] [address] [place], [address] RDW SD 44.8 fl High 35.1-43.9 [facility] Comment on above: Performed By: #### L 500.2500, L100.0100, L300.3900 ####[facility] [address] [place], [address] WBC (Bld) [#/Vol] 5.3 10*3/uL Normal 4.4-11.0 [facility] Comment on above: Performed By: #### L 500.2500, L100.0100, L300.3900 ####[facility] [address] [place], [address] Cardiology Visit Reporton Cardiology Visit Report [facility] [address] [place] [address] OFFICE VISIT Date of Service: 06/29/24 MR#: [id number] Acct: [id number] Name: JOSE SANDOVAL Rep #: [id number] : 1950 Provider: SUJATA Mcneil Age/Sex: 73/M [place] [facility] [place]: [place]igned HPI HPI History of Present Illness Surgical H P: Yes Details: Jose Sandvoal is a 73-year-old white male who presents today for outpatient cardiovascular follow- up with concerns of an abnormal stress test that was ordered by his PCP. . He initially established with us based upon concerns of exertional chest discomfort concerning for stable exertional angina pectoris as well as palpitations. Patient underwent a heart catheterization on 01/16/2022 that showed non-angiographically significant multivessel coronary artery disease. Medical therapy was recommended. Pt notes that over the last few months he has noted chest tightness when he walks. He is more SOB only when he has the chest tightness. He does not have any palpitations. He does occasionally have positional dizziness. He does not have any edema. He does not have any claudication. Intake Vital Signs 06/10/24 08:57 06/29/24 09:50 Height 5 ft 9 in 5 ft 9 in Weight: 187 lb BMI 27.6 BP 136/78 H Blood Pressure Location Lt brachial Position Sitting Respiration 18 Pulse 56 L Pulse Source Monitor Pulse Oximetry (%) 98 Intake Visit Reasons: ABN STRESS (PER MARIEL)(SEE NOTES) Element Burner Required: No Is patient in pain?: No Allergies amoxicillin Allergy (Verified 06/29/24 09:52) Swelling nitroglycerin Allergy (Verified 06/29/24 09:52) SEVERE HYPOTENSION hydrocodone (From Vicodin) Adverse Reaction (Verified 06/29/24 09:52) Other Medications ???Medication ???Instructions ???Recorded ???Confirmed ???Type cholecalciferol (vitamin D3) 25 25 mcg PO DAILY supplement 08/13/21 06/17/24 History mcg (1,000 unit) tablet (Vitamin D3) multivitamin 1 tab PO DAILY supplement 08/13/21 06/17/24 History polyethylene glycol 3350 17 gram 17 g PO DAILY PRN Constipation 03/30/22 06/17/24 History oral powder packet (Miralax) aspirin 81 mg tablet,delayed 81 mg PO QDAY #90 tabs 04/03/22 06/29/24 Rx release (Adult Aspirin Regimen) cetirizine 10 mg tablet (All Day 10 mg PO DAILY #90 tabs 11/06/23 06/17/24 Rx Allergy (cetirizine)) montelukast 10 mg tablet 10 mg PO QPM #90 tabs 12/03/23 06/17/24 Rx simvastatin 40 mg tablet 40 mg PO QHS cholesterol #90 tabs 12/08/23 06/29/24 Rx compress.amanda pendleton e,reg,lrg #2 ea 03/03/24 06/17/24 Rx scopolamine base 1 mg over 3 days 1 patch transdermal Q3D PRN motion 03/03/24 06/17/24 Rx transdermal patch sickness #4 ea lisinopril 20 mg tablet 20 mg PO DAILY hypertension #90 04/26/24 06/29/24 Rx tabs pantoprazole 40 mg tablet,delayed 40 mg PO QAM GERD #90 tabs 04/26/24 06/29/24 Rx release (Protonix) pioglitazone 30 mg tablet 30 mg PO DAILY #90 tabs 04/26/24 06/17/24 Rx glimepiride 2 mg tablet 2 mg PO DAILY 3 months #90 tabs 05/23/24 06/29/24 Rx metformin 1,000 mg tablet 1,000 mg PO BIDCM diabetes #180 05/23/24 06/29/24 Rx tabs budesonide 160 mcg-glycopyr 9 inh inhalation 06/10/24 06/17/24 History mcg-formot 4.8 mcg/actuation HFA inhaler (Breztri [employer]) Have you fallen in the past year?: No Nurse's Note: no medication list, does not know names of all medications [facility] Medical History Anemia Constipation Bilateral lower extremity edema Abdominal pain Obesity Health care maintenance Bruising Easy bruising Diverticulosis History of echocardiogram Cardiology follow-up encounter SOB (shortness of breath) on exertion Angina pectoris BPH (benign prostatic hyperplasia) Essential hypertension Mixed hyperlipidemia Type 2 diabetes mellitus Leg cramps Dizziness Wears glasses History of steroid therapy Kidney stones Back pain History of diverticulitis Non-smoker Leg cramps History of stress test Chest pain Ileus Appendicitis radial shortening Diabetes Surgical History History of surgery on arm History of colonoscopy History of left heart catheterization (LHC) ( 01/16/22) History of transurethral resection of prostate Hx of appendectomy H/O arthroscopic knee surgery H/O hernia repair History of carpal tunnel surgery History of knee replacement Family History Grandfather Heart disease Grandfather Heart disease Grandmother Heart disease Social History Smoking Status: Never smoker alcohol intake: never substance use (more content not included)... Normal [facility] Chest PA and Lateralon 06-29 Chest PA and Lateral [facility] Imaging Services [address] [place], [place] [address] Chest PA and Lateral MR#: [id number] Acct: [id number] Name: JOSE SANDOVAL Rep #: [id number] : 1950 M 73 From: Nelson Evans MD PCP: Dr. Timmy Floyd MD Status: REG CLI Study: Chest PA and Lateral Date of Exam: 06/29/24 Exam# [id number] Ordering Dr: Sarita Murillo [place] [id number] STUDY: X-RAY CHEST REASON FOR EXAM: Male, 73 years old. Chest pain. TECHNIQUE: Frontal and lateral views of the chest. COMPARISON: March 30, 2022 FINDINGS: Low volume inspiration. There is no demonstrated pleural abnormality. Stable borderline cardiomegaly. Normal mediastinum and [place]. Normal visualized pulmonary arteries. Normal visualized aortic arch and descending thoracic aorta. Mild thoracic dextroscoliosis with minimal spondylosis Normal visualized ribs, clavicles, and shoulders. No abnormality of the visualized soft tissue structures of the upper abdomen. RAD/Chest PA and Lateral IMPRESSION: Stable borderline cardiomegaly with no acute finding. Electronically Signed: Nelson Evans MD at 10:56 EDT , CC: Dr. Timmy Floyd MD; SUJATA Masters Architectural Draftsperson: Signed Normal [facility] Prothrombin Time w/INRon INR Coag (PPP) [Relative time] 1.1 {INR} Normal [facility] Comment on above: Performed By: #### L 500.2500, L100.0100, L300.3900 ####[facility] [address] [place], [address] PT Coag (PPP) [Time] 13.9 s Normal 11.7-14.9 [facility] Comment on above: Performed By: #### L 500.2500, L100.0100, L300.3900 ####[facility] [address] [place], [address] Stress Reporton 06-28-2024 Stress Report [facility] [address] [place] [address] MR#: [id number] Acct: [id number] Name: JOSE SANDOVAL Rep #: [id number] : 1950 73 From: Keiko Arrieta MD Primary Care: Dr. Timmy Floyd MD Status: REG I Referring Dr: Timmy Floyd MD Sex: M C Stress Test Report Date: 06/28/2024 Procedure: Exercise tolerance test/imaging study Indications: Chest pain Consent: Per the patient Procedure: The patient exercised on a Tobin protocol for 7 minutes achieving a peak heart rate of 141 bpm (94% predicted maximal heart rate) with a peak blood pressure 170/68 mmHg and a peak MET capacity of 10.1 METs. The baseline ECG demonstrated sinus rhythm. The peak exercise ECG demonstrated downsloping ST changes in inferior and lateral leads. There were no cardiac dysrhythmias pretest, during exercise, or recovery. The functional capacity was considered good. There was complaints of chest discomfort with exercise, resolved in recovery. The examination was discontinued secondary to target heart rate being achieved and chest discomfort. The patient was injected with 11.6 mCi of technetium 99m Cardiolite and subsequently rest SPECT Cardiolite nuclear imaging was obtained in the horizontal long, vertical long, and short axis views. Post-exercise, the patient was injected with 33.9 mCi of technetium 99m Cardiolite and subsequently stress SPECT Cardiolite nuclear imaging was obtained in the horizontal long, vertical long, and short axis views. A gated Cardiolite study at peak stress was obtained. Rest and stress SPECT Cardiolite nuclear imaging status post realignment demonstrates reversible perfusion defect of the inferior wall. There is end systolic thickening and brightening. The gated Cardiolite study demonstrates myocardial thickening and inward wall motion. The reported LVEF is 69%. Impression: 1. Technically adequate (percent predicted maximal heart rate greater than 85%) exercise tolerance test 2. Peak exercise ECG with ischemic ECG changes. The ECG changes correlated with onset of his chest tightness symptoms 3. There were no cardiac dysrhythmias pretest, during exercise, or recovery 4. Rest and stress SPECT Cardiolite nuclear imaging demonstrate reversible perfusion defect of the inferior wall suggestive of ischemia. 5. The gated Cardiolite study reports an LVEF of %. This note was generated with [employer] software. It may contain incorrect words, spelling, and punctuation that were not noted in checking the note before signing. 06/28/24 1215 Date Keiko Arrieta MD CC: Dr. Timmy Floyd MD Date Dictated: 06/28/24 1212 Date Transcribed: 06/28/241211 Architectural Draftsperson: DAVID Signed Normal [facility] Gastroenterology Visit Repor ton 06-17-2024 Gastroenterology Visit Report [facility]astroenterology [address] [facility] [place] [address] OFFICE VISIT Date of Service: 06/17/24 MR#: [id number] Acct: [id number] Name: JOSE SANDOVAL Rep #: [id number] : 1950 Provider: SUJATA Tay Age/Sex: 73/M Location: [facility] [place] Status: Signed Intake Vital Signs 08/28/23 10:16 03/03/24 15:49 06/10/24 08:57 Height 5 ft 9 in 5 ft 9 in 5 ft 9 in Intake Visit Reasons: 6 MO FU Chief Complaint: 3 m f/u Allergies amoxicillin Allergy (Verified 06/10/24 08:51) Swelling nitroglycerin Allergy (Verified 06/10/24 08:51) SEVERE HYPOTENSION hydrocodone (From Vicodin) Adverse Reaction (Verified 06/10/24 08:51) Other Medications ???Medication ???Instructions ???Recorded ???Confirmed ???Type cholecalciferol (vitamin D3) 25 25 mcg PO DAILY supplement 08/13/21 06/17/24 History mcg (1,000 unit) tablet (Vitamin D3) multivitamin 1 tab PO DAILY supplement 08/13/21 06/17/24 History polyethylene glycol 3350 17 gram 17 g PO DAILY PRN Constipation 03/30/22 06/17/24 History oral powder packet (Miralax) aspirin 81 mg tablet,delayed 81 mg PO QDAY #90 tabs 04/03/22 06/17/24 Rx release (Adult Aspirin Regimen) cetirizine 10 mg tablet (All Day 10 mg PO DAILY #90 tabs 11/06/23 06/17/24 Rx Allergy (cetirizine)) montelukast 10 mg tablet 10 mg PO QPM #90 tabs 12/03/23 06/17/24 Rx simvastatin 40 mg tablet 40 mg PO QHS cholesterol #90 tabs 12/08/23 06/17/24 Rx compress.helder,amanda e,reg,lrg #2 ea 03/03/24 06/17/24 Rx scopolamine base 1 mg over 3 days 1 patch transdermal Q3D PRN motion 03/03/24 06/17/24 Rx transdermal patch sickness #4 ea lisinopril 20 mg tablet 20 mg PO DAILY hypertension #90 04/26/24 06/17/24 Rx tabs pantoprazole 40 mg tablet,delayed 40 mg PO QAM GERD #90 tabs 04/26/24 06/17/24 Rx release (Protonix) pioglitazone 30 mg tablet 30 mg PO DAILY #90 tabs 04/26/24 06/17/24 Rx glimepiride 2 mg tablet 2 mg PO DAILY 3 months #90 tabs 05/23/24 06/17/24 Rx metformin 1,000 mg tablet 1,000 mg PO BIDCM diabetes #180 05/23/24 06/17/24 Rx tabs budesonide 160 mcg-glycopyr 9 inh inhalation 06/10/24 06/17/24 History mcg-formot 4.8 mcg/actuation HFA inhaler ([employer]) Have you fallen in the past year?: No [facility] Medical History (Updated 06/10/24 @ 13:[address] Timmy Floyd MD) Anemia Constipation Bilateral lower extremity edema Abdominal pain Obesity Health care maintenance Bruising Easy bruising Diverticulosis History of echocardiogram Cardiology follow-up encounter SOB (shortness of breath) on exertion Angina pectoris BPH (benign prostatic hyperplasia) Essential hypertension Mixed hyperlipidemia Type 2 diabetes mellitus Leg cramps Dizziness Wears glasses History of steroid therapy Kidney stones Back pain History of diverticulitis Non-smoker Leg cramps History of stress test Chest pain Ileus Appendicitis radial shortening Diabetes Surgical History History of surgery on arm History of colonoscopy History of left heart catheterization (LHC) ( 01/16/22) History of transurethral resection of prostate Hx of appendectomy H/O arthroscopic knee surgery H/O hernia repair History of carpal tunnel surgery History of knee replacement Family History Grandfather Heart disease Grandfather Heart disease Grandmother Heart disease Social History Smoking Status: Never smoker alcohol intake: never substance use type: does not use caffeine: Yes Type: carbonated beverages HPI HPI Chief Complaint: 3 m f/u Details: JOSE SANDOVAL, is a 73 M who presents to the office today for f/u for GERD, constipation, SCAD Last office visit was on 03/26/2022; plan at that time was to treat gastritis and esophagitis with 1 month course of sucralfate, 2 months of twice daily dosing of pantoprazole 40 mg, then once daily pantoprazole. EGD had been performed due to atypical chest pain and dysphagia. No dysphagia since dilation of Schatzki ring. At his last visit we also discussed slow transit constipation and SCAD, recommended continued use of MiraLAX to treat the constipation as well as SCAD. He hasn't been using miralax regularly, and notes a recurrence of occas pain across lower abd that resolves with BM. This was what he had reported in the past when he didn't use Miralax. Hx of ileus. We treated SCAD with mesalamine. Denies nausea, vomiting, dysphagia, chest pain, early satiety, diarrhea, melena, hematochezia OV 9.6.24 Patient has been doing well. He has no heartburn symptoms at this time and continues taking pantoprazole daily. He is no longer having abdominal pain after losing some w (more content not included)... Normal [facility] CBC W/Diff, Automatedon 08-3 0-2023 Absolute Lymph 1.52 X10 3/uL Normal 0.83-4.51 [facility] Comment on above: Performed By: #### L 501.9910, L500.4100, L100.0100, L500.4050 #### [facility] [address] [place], [address] Absolute Neut 2.4 X10 3/uL Normal 2.0-7.7 [facility] Comment on above: Performed By: #### L 501.9910, L500.4100, L100.0100, L500.4050 #### [facility] [address] [place], [address] Basophils/100 WBC (Bld) 0.9 % Normal 0-1 [facility] Comment on above: Performed By: #### L 501.9910, L500.4100, L100.0100, L500.4050 #### [facility] [address] [place], [address] Eosinophils/100 WBC (Bld) 2.3 % Normal 0-5 [facility] Comment on above: Performed By: #### L 501.9910, L500.4100, L100.0100, L500.4050 #### [facility] [address] [place], [address] Erythrocyte distribution width (RBC) [Ratio] 12.9 % Normal 11.6-14.6 [facility] Comment on above: Performed By: #### L 501.9910, L500.4100, L100.0100, L500.4050 #### [facility] [address] [place], [address] Hematocrit (Bld) [Volume fraction] 38.4 % Low 40-54 [facility] Comment on above: Performed By: #### L 501.9910, L500.4100, L100.0100, L500.4050 #### [facility] [address] [place], [address] Hemoglobin (Bld) [Mass/Vol] 12.4 g/dL Low 13.0-16.5 [facility] Comment on above: Performed By: #### L 501.9910, L500.4100, L100.0100, L500.4050 #### [facility] [address] [place], [address] IG% 0.200 Normal 0.0-0.9 [facility] Comment on above: Result Comment: IG% - Immature Granulocytes (promyelocytes, myelocytes and metamyelocytes) > 1% indicates that a LEFT SHIFT is Present. Performed By: #### L 501.9910, L500.4100, L100.0100, L500.4050 #### [facility] [address] [place], [address] Lymphocytes/100 WBC (Bld) 34.2 % Normal 19-41 [facility] Comment on above: Performed By: #### L 501.9910, L500.4100, L100.0100, L500.4050 #### [facility] [address] [place], [address] MCH (RBC) [Entitic mass] 30.0 pg Normal 27.0-32.0 [facility] Comment on above: Performed By: #### L 501.9910, L500.4100, L100.0100, L500.4050 #### [facility] [address] [place], [address] MCHC (RBC) [Mass/Vol] 32.3 g/dL Normal 32-[address] [facility] Comment on above: Performed By: #### L 501.9910, L500.4100, L100.0100, L500.4050 #### [facility] [address] [place], [address] MCV (RBC) [Entitic vol] 93.0 fL Normal 80-94 [facility] Comment on above: Performed By: #### L 501.9910, L500.4100, L100.0100, L500.4050 #### [facility] [address] [place], [address] Monocytes/100 WBC (Bld) 8.3 % Normal 0-10 [facility] Comment on above: Performed By: #### L 501.9910, L500.4100, L100.0100, L500.4050 #### [facility] [address] [place], [address] Neutrophils/100 WBC (Bld) 54.1 % Normal 47-70 [facility] Comment on above: Performed By: #### L 501.9910, L500.4100, L100.0100, L500.4050 #### [facility] [address] [place], [address] Nucleated RBC (Bld) [#/Vol] 0 10*3/uL Normal 0-5 [facility] Comment on above: Performed By: #### L 501.9910, L500.4100, L100.0100, L500.4050 #### [facility] [address] [place], [address] Platelet mean volume (Bld) [Entitic vol] 9.6 fL Normal 6.2-12.0 [facility] Comment on above: Performed By: #### L 501.9910, L500.4100, L100.0100, L500.4050 #### [facility] [address] [place], [address] Platelets (Bld) [#/Vol] 340 10*3/uL Normal 150-450 [facility] Comment on above: Performed By: #### L 501.9910, L500.4100, L100.0100, L500.4050 #### [facility] [address] [place], [address] RBC (Bld) [#/Vol] 4.13 10*6/uL Low 4.6-6.2 [facility] Comment on above: Performed By: #### L 501.9910, L500.4100, L100.0100, L500.4050 #### [facility] [address] [place], [address] RDW SD 43.8 fl Normal 35.1-43.9 [facility] Comment on above: Performed By: #### L 501.9910, L500.4100, L100.0100, L500.4050 #### [facility] [address] [place], [address] WBC (Bld) [#/Vol] 4.4 10*3/uL Normal 4.4-11.0 [facility] Comment on above: Performed By: #### L 501.9910, L500.4100, L100.0100, L500.4050 #### [facility] [address] [place], [address] Comprehensive Metabolic Prof [facility] 06-10-2024 Albumin [Mass/Vol] 3.6 g/dL Normal 3.2-5.0 [facility] Comment on above: Performed By: #### L 501.9910, L500.4100, L100.0100, L500.4050 #### [facility] [address] [place], [address] Albumin/Globulin [Mass ratio] 0.9 {ratio} Normal 0.9-2.4 [facility] Comment on above: Performed By: #### L 501.9910, L500.4100, L100.0100, L500.4050 #### [facility] [address] [place], [address] ALK P 72 U/L Normal 45-117 [facility] Comment on above: Performed By: #### L 501.9910, L500.4100, L100.0100, L500.4050 #### [facility] [address] [place], [address] ALT [Catalytic activity/Vol] 17 U/L Normal 16-61 [facility] Comment on above: Performed By: #### L 501.9910, L500.4100, L100.0100, L500.4050 #### [facility] [address] [place], [address] AST [Catalytic activity/Vol] 14 U/L Low 15-37 [facility] Comment on above: Performed By: #### L 501.9910, L500.4100, L100.0100, L500.4050 #### [facility] [address] [place], [address] Bilirubin [Mass/Vol] 0.50 mg/dL Normal 0.20-1.00 [facility] Comment on above: Result Comment: For patients on eltrombopag therapy, use of Dimension [place] TBIL is not recommended. Performed By: #### L 501.9910, L500.4100, L100.0100, L500.4050 #### [facility] [address] [place], [address] BUN/CRE 21.7 RATIO High 10-20 [facility] Comment on above: Performed By: #### L 501.9910, L500.4100, L100.0100, L500.4050 #### [facility] [address] [place], [address] CA,Total 9.6 mg/dL Normal 8.5-10.1 [facility] Comment on above: Performed By: #### L 501.9910, L500.4100, L100.0100, L500.4050 #### [facility] [address] [place], [address] Chloride [Moles/Vol] 103 mmol/L Normal 98-107 [facility] Comment on above: Performed By: #### L 501.9910, L500.4100, L100.0100, L500.4050 #### [facility] [address] [place], [address] CO2 [Moles/Vol] 28.0 mmol/L Normal 21.0-32.0 [facility] Comment on above: Performed By: #### L 501.9910, L500.4100, L100.0100, L500.4050 #### [facility] [address] [place], [address] Creatinine [Mass/Vol] 1.38 mg/dL High 0.70-1.[address] [facility] Comment on above: Result Comment: The validity of the calculated GFR GFRAA in patients over 70 years has not been determined. Clinical correlation is essential. Performed By: #### L 501.9910, L500.4100, L100.0100, L500.4050 #### [facility] [address] [place], [address] EST GFR - AA 65 mL/min Normal >60 [facility] Comment on above: Result Comment: Afri can Lao GFR Calc Performed By: #### L 501.9910, L500.4100, L100.0100, L500.4050 #### [facility] [address] [place], [address] GAP 5 Normal 5-15 [facility] Comment on above: Performed By: #### L 501.9910, L500.4100, L100.0100, L500.4050 #### [facility] [address] [place], [address] GFR/1.73 sq M.predicted among non-blacks MDRD (S/P/Bld) [Vol rate/Area] 54 mL/min/{1.73_m2} Low >60 [facility] Comment on above: Result Comment: Non- GFR Calc Performed By: #### L 501.9910, L500.4100, L100.0100, L500.4050 #### [facility] [address] [place], [address] Globulin (S) [Mass/Vol] 3.8 g/dL Normal 2.2-4.2 [facility] Comment on above: Performed By: #### L 501.9910, L500.4100, L100.0100, L500.4050 #### [facility] [address] [place], [address] Glucose [Mass/Vol] 117 mg/dL High 74-106 [facility] Comment on above: Result Comment: Fast ing Glucose result from 100 to 125 mg/dL suggests IMPAIRED HOMEOSTASIS per A.D.A. criteria. Performed By: #### L 501.9910, L500.4100, L100.0100, L500.4050 #### [facility] [address] [place], [address] Potassium [Moles/Vol] 3.9 mmol/L Normal 3.5-5.[address] [facility] Comment on above: Performed By: #### L 501.9910, L500.4100, L100.0100, L500.4050 #### [facility] [address] [place], [address] Sodium [Moles/Vol] 136 mmol/L Normal 136-145 [facility] Comment on above: Performed By: #### L 501.9910, L500.4100, L100.0100, L500.4050 #### [facility] [address] [place], [address] T PROT 7.4 g/dL Normal 6.4-8.2 [facility] Comment on above: Performed By: #### L 501.9910, L500.4100, L100.0100, L500.4050 #### [facility] [address] [place], [address] Urea nitrogen [Mass/Vol] 30 mg/dL High 7-18 [facility] Comment on above: Performed By: #### L 501.9910, L500.4100, L100.0100, L500.4050 #### [facility] [address] [place], [address] Ferritinon 06-10-2024 Ferritin [Mass/Vol] 68 ng/mL Normal 26-388 [facility] Comment on above: Performed By: #### L 503.6550, L503.6150, L503.6075 ####[facility] [address] [place], [address] Internal Medicine Office Vis iton 06-10-2024 Internal Medicine Office Visit [facility] [address] [place], [place] [address] OFFICE VISIT Date of Service: 06/10/24 MR#: [id number] Acct: [id number] Name: JOSE SANDOVAL Rep #: [id number] : 1950 Provider: Dr. Timmy welch MD Age/Sex: 73/M Location: [facility] Status: Signed Intake Vital Signs 03/03/24 15:49 06/10/24 08:57 Height 5 ft 9 in 5 ft 9 in Weight: 182 lb 2 oz BMI 26.9 BP 118/66 Blood Pressure Location Lt brachial Position Sitting Respiration 16 Pulse 70 Pulse Source Monitor Temp 97.8 F Temp Source Temporal Pulse Oximetry (%) 98 Oxygen Delivery Method room air Intake Visit Reasons: 3 M FU Chief Complaint: 3 m f/u Element Burner Required: No Accompanied by: Self Is patient in pain?: No Allergies amoxicillin Allergy (Verified 06/10/24 08:51) Swelling nitroglycerin Allergy (Verified 06/10/24 08:51) SEVERE HYPOTENSION hydrocodone (From Vicodin) Adverse Reaction (Verified 06/10/24 08:51) Other Medications ???Medication ???Instructions ???Recorded ???Confirmed ???Type cholecalciferol (vitamin D3) 25 25 mcg PO DAILY supplement 08/13/21 06/10/24 History mcg (1,000 unit) tablet (Vitamin D3) multivitamin 1 tab PO DAILY supplement 08/13/21 06/10/24 History polyethylene glycol 3350 17 gram 17 g PO DAILY PRN Constipation 03/30/22 06/10/24 History oral powder packet (Miralax) aspirin 81 mg tablet,delayed 81 mg PO QDAY #90 tabs 04/03/22 06/10/24 Rx release (Adult Aspirin Regimen) cetirizine 10 mg tablet (All Day 10 mg PO DAILY #90 tabs 11/06/23 06/10/24 Rx Allergy (cetirizine)) montelukast 10 mg tablet 10 mg PO QPM #90 tabs 12/03/23 06/10/24 Rx simvastatin 40 mg tablet 40 mg PO QHS cholesterol #90 tabs 12/08/23 06/10/24 Rx compress.amanda pendleton e,reg,lrg #2 ea 03/03/24 06/10/24 Rx scopolamine base 1 mg over 3 days 1 patch transdermal Q3D PRN motion 03/03/24 06/10/24 Rx transdermal patch sickness #4 ea lisinopril 20 mg tablet 20 mg PO DAILY hypertension #90 04/26/24 06/10/24 Rx tabs pantoprazole 40 mg tablet,delayed 40 mg PO QAM GERD #90 tabs 04/26/24 06/10/24 Rx release (Protonix) pioglitazone 30 mg tablet 30 mg PO DAILY #90 tabs 04/26/24 06/10/24 Rx glimepiride 2 mg tablet 2 mg PO DAILY 3 months #90 tabs 05/23/24 06/10/24 Rx metformin 1,000 mg tablet 1,000 mg PO BIDCM diabetes #180 05/23/24 06/10/24 Rx tabs budesonide 160 mcg-glycopyr 9 inh inhalation 06/10/24 06/10/24 History mcg-formot 4.8 mcg/actuation HFA inhaler ([email or web address]) Have you fallen in the past year?: No PFSH Medical History Constipation Bilateral lower extremity edema Abdominal pain Obesity Health care maintenance Bruising Easy bruising Diverticulosis History of echocardiogram Cardiology follow-up encounter SOB (shortness of breath) on exertion Angina pectoris BPH (benign prostatic hyperplasia) Essential hypertension Mixed hyperlipidemia Type 2 diabetes mellitus Leg cramps Dizziness Wears glasses History of steroid therapy Kidney stones Back pain History of diverticulitis Non-smoker Leg cramps History of stress test Chest pain Ileus Appendicitis radial shortening Diabetes Surgical History History of surgery on arm History of colonoscopy History of left heart catheterization (LHC) ( 01/16/22) History of transurethral resection of prostate Hx of appendectomy H/O arthroscopic knee surgery H/O hernia repair History of carpal tunnel surgery History of knee replacement Family History Grandfather Heart disease Grandfather Heart disease Grandmother Heart disease Social History Smoking Status: Never smoker alcohol intake: never substance use type: does not use caffeine: Yes Type: carbonated beverages HPI HPI Chief Complaint: 3 m f/u Details: JOSE SANDOVAL, is a 73 M who presents to the office today for follow-up of his chronic medical conditions. Also has some concerns. He reports intermittent shortness of breath and chest tightness. Typically with significant exertion/activity. No concerns at rest. Had a stress test 2 years ago due to similar symptoms wh ich did not reveal any concerns for ischemia. History of diabetes mellitus type 2 and hypertension. A1c today is at 6.2 up slightly from 5.9. He states that he has been on vacation and not been as compliant with his diet. No concerns for hypoglycemia. Blood pressure is also stable at 118/66mmHg. No syncopal or near syncopal episodes. Other chronic medical conditions are stable. ROS Const Constitutional: No body ache, chills, excessive sweating, fatigue, feve (more content not included)... Normal [facility] Ironon 06-10-2024 Iron [Mass/Vol] 92 ug/dL Normal 65-175 [facility] Comment on above: Performed By: #### L 503.6550, L503.6150, L503.6075 ####[facility] [address] [place], [address] Iron Binding Capacity,Totalo n 06-10-2024 TIBC 298 ug/dL Normal 250-450 [facility] Comment on above: Performed By: #### L 503.6550, L503.6150, L503.6075 ####[facility] [address] [place], [address] Lipid Profileon 06-10-2024 Cholesterol [Mass/Vol] 130 mg/dL Normal 200 [facility] Comment on above: Result Comment: <200 mg/dL Desirable 200-240 mg/dL Borderline >240 mg/dL High Risk Performed By: #### L 501.9910, L500.4100, L100.0100, L500.4050 ####[facility] [address] [place], [address] Cholesterol in HDL [Mass/Vol] 69 mg/dL Normal [facility] Comment on above: Result Comment: The drugs N-Acetylcysteine and Metamizole may falsely depress this assay. Reference Range HDL <40 mg/dL Low HDL Cholesterol HDL >or= 60 mg/dL High HDL Cholesterol Performed By: #### L 501.9910, L500.4100, L100.0100, L500.4050 ####[facility] [address] [place], [address] Cholesterol in LDL [Mass/Vol] 52 mg/dL Normal 0-130 [facility] Comment on above: Performed By: #### L 501.9910, L500.4100, L100.0100, L500.4050 ####[facility] [address] [place], [address] Cholesterol in VLDL [Mass/Vol] 9 mg/dL Normal 5-40 [facility] Comment on above: Performed By: #### L 501.9910, L500.4100, L100.0100, L500.4050 ####[facility] [address] [place], [address] Triglyceride [Mass/Vol] 43 mg/dL Normal [facility] Comment on above: Result Comment: The drugs N-Acetylcysteine and Metamizole may falsely depress this assay. Serum Triglycerides Reference Interval Normal <150 mg/dL Borderline high 150 - 199 mg/dL High 200 - 499 mg/dL Very High > or = 500 mg/dL Performed By: #### L 501.9910, L500.4100, L100.0100, L500.4050 ####[facility] [address] [place], [address] PSA,Total - Annual Screenon 06-10-2024 PSA,TOT SCREEN 1.14 ng/mL Normal 0.00-4.00 [facility] Comment on above: Result Comment: This test was performed using the TPSA assay method for the [employer] chemistry system. Values obtained with different assay methods cannot be used interchangably. When changing PSA assays in the course of monitoring a patient, additional sequential testing should be carried out to confirm baseline values. Performed By: #### L 501.9910, L500.4100, L100.0100, L500.4050 ####[facility] [address] [place], [address] Basophil percentageOrdered B y: Timmy Floyd on 12-03-2023 Bilirubin [Mass/Vol] 0.70 mg/dL 0.20-1.00 [facility] Comment on above: For patients on eltr ombopag therapy, use of Dimension [place] TBIL is not recommended. Chloride [Moles/Vol] 104 mmol/L 98-107 [facility] Glucose [Mass/Vol] 103 mg/dL 74-106 [facility] Comment on above: Fasting Glucose resu lt from 100 to 125 mg/dL suggests IMPAIRED HOMEOSTASIS per A.D.A. criteria. Potassium [Moles/Vol] 4.4 mmol/L 3.5-5.[address] [facility] Protein [Mass/Vol] 7.5 g/dL 6.4-8.2 [facility] Sodium [Moles/Vol] 137 mmol/L 136-145 [facility] - Chemistry and C hemistry - challengeOrdered By: Timmy Floyd on 12-03-2023 Albumin/Globulin [Mass ratio] 1.0 {ratio} 0.9-2.4 [facility] ALP [Catalytic activity/Vol] 67 U/L 45-117 [facility] ALT [Catalytic activity/Vol] 23 U/L 16-61 [facility] CO2 [Moles/Vol] 28.0 mmol/L 21.0-32.0 [facility] Globulin (S) [Mass/Vol] 3.7 g/dL 2.2-4.2 [facility] Urea nitrogen/Creatinine [Mass ratio] 35.3 mg/mg 10-20 [facility] - Hematology and Cell countson 12-03-2023 HbA1c (Bld) [Mass fraction] 8.2 % 4.2-6.3 [facility] No Panel InformationOrdered By: Timmy Floyd on 12-03-2023 Estimated GFR (MDRD) Amer 78 mL/min >60 [facility] Comment on above: GFR Calc Estimated GFR (MDRD) Non-Af Amer 64 mL/min >60 [facility] Comment on above: Non- GFR Calc Urine Microalbumin/Creatinine Ratio 16.9 mg/g CRE <30 [facility] Serum or plasma calcium jhon urement (mass/volume)Ordered By: Timmy Floyd on 12-03-2023 Calcium [Mass/Vol] 9.7 mg/dL 8.5-10.1 [facility] Serum or plasma creatinine m easurement (mass/volume)Ordered By: Timmy Floyd on 12-03-2023 Creatinine [Mass/Vol] 1.19 mg/dL 0.70-1.[address] [facility] Comment on above: The validity of the calculated GFR & GFRAA in patients over 70 years has not been determined. Clinical correlation is essential. Serum or plasma urea nitroge n measurement (mass/volume)Ordered By: Timmy Floyd on 12-03-2023 Urea nitrogen [Mass/Vol] 42 mg/dL 7-18 [facility] Thin prep Papanicolaou smear with manual screeningOrdered By: Timmy Floyd on 12-03-2023 Thin prep Papanicolaou smear with manual screening 3.8 g/dL 3.2-5.0 [facility] Thin prep Papanicolaou smear with manual screening 17 U/L 15-37 [facility] Thin prep Papanicolaou smear with manual screening 5 5-15 [facility] Thin prep Papanicolaou smear with manual screening 17.9 mg/L NO RANGE EST. [facility] Urine creatinine measurement (mass/volume)Ordered By: Timmy Floyd on 12-03-2023 Creatinine (U) [Mass/Vol] 106.00 mg/dL NO RANGE EST. [facility] - Hematology and Cell countson 08-28-2023 HbA1c (Bld) [Mass fraction] 9.4 % 4.2-6.3 [facility] Absolute lymphocyte countOrd ered By: Timmy Floyd on 05-11-2023 Lymphocytes Auto (Unsp spec) [#/Vol] 1.71 10*3/uL 0.83-4.51 [facility] Basophil percentageOrdered B y: Timmy Floyd on 05-11-2023 Basophils/100 WBC (Bld) 0.8 % 0-1 [facility] Bilirubin [Mass/Vol] 0.30 mg/dL 0.20-1.00 [facility] Comment on above: For patients on eltr ombopag therapy, use of Dimension [place] TBIL is not recommended. Chloride [Moles/Vol] 105 mmol/L 98-107 [facility] Cholesterol [Mass/Vol] 144 mg/dL <200 [facility] Comment on above: <200 mg/dL Desirable 200-240 mg/dL Borderline >240 mg/dL High Risk Eosinophils/100 WBC (Bld) 4.1 % 0-5 [facility] Glucose [Mass/Vol] 233 mg/dL 74-106 [facility] Comment on above: Glucose result great er than or equal to 200 mg/dLsuggests DIABETES MELLITUS per A.D.A. criteria. Neutrophils (Bld) [#/Vol] 3.8 10*3/uL 2.0-7.7 [facility] [facility] Neut[facility]/100 WBC (Bld) 60.3 % 47-70 [facility] Potassium [Moles/Vol] 4.7 mmol/L 3.5-5.[address] [facility] Protein [Mass/Vol] 7.9 g/dL 6.4-8.2 [facility] Sodium [Moles/Vol] 137 mmol/L 136-145 [facility] Triglyceride [Mass/Vol] 198 mg/dL <199 [facility] Comment on above: The drugs N-Acetylcy steine and Metamizole may falsely depress this assay.Serum Triglycerides Reference Interval Normal <150 mg/dL Borderline high 150 - 199 mg/dL High 200 - 499 mg/dL Very High > or = 500 mg/dL WBC (Bld) [#/Vol] 6.4 10*3/uL 4.4-11.0 [facility] Blood erythrocytes count (nu mber/volume)Ordered By: Timmy Floyd on 05-11-2023 RBC (Bld) [#/Vol] 4.48 10*6/uL 4.6-6.2 [facility] Blood hemoglobin measurement (mass/volume)Ordered By: Timmy Floyd on 05-11-2023 Hemoglobin (Bld) [Mass/Vol] 14.1 g/dL 13.0-16.5 [facility] Blood lymphocytes/100 leukoc ytesOrdered By: Timmy Floyd on 05-11-2023 Lymphocytes/100 WBC (Bld) 26.8 % 19-41 [facility] Blood monocytes/100 leukocyt esOrdered By: Timmy Floyd on 05-11-2023 Monocytes/100 WBC (Bld) 7.4 % 0-10 [facility] Blood platelet mean volumeOr dered By: Timmy Floyd on 05-11-2023 Platelet mean volume (Bld) [Entitic vol] 9.8 fL 6.2-12.0 [facility] Determination of erythrocyte mean corpuscular volume (MCV)Ordered By: Timmy Floyd on 05-11-2023 MCV (RBC) [Entitic vol] 96.2 fL 80-94 [facility] Hematocrit Auto (Bld) [Volum e fraction][facility] 05-11-[facility]23 Hematocrit (Bld) [Volume fraction] 43.1 % 40-54 [facility] Laboratory - Chemistry and C hemistry - challengeOrdered By: [facility] Marionalfonso on 05-11-2023 ALP [Catalytic activity/Vol] 83 U/L 45-117 [facility] ALT [Catalytic activity/Vol] 35 U/L 16-61 [facility] CO2 [Moles/Vol] 25.0 mmol/L 21.0-32.0 [facility] Globulin (S) [Mass/Vol] 4.5 g/dL 2.2-4.2 [facility] Urea nitrogen/Creatinine [Mass ratio] 26.1 mg/mg 10-20 [facility] Laboratory - Hematology and Cell countsOrdered By: russellcaledoniarey Floyd on 05-11-2023 Erythrocyte distribution width (RBC) [Entitic vol] 42.7 fL 35.1-43.9 [facility] Erythrocyte distribution width (RBC) [Ratio] 12.1 % 11.6-14.6 [facility] Immature granulocytes/100 WBC (Bld) 0.600 % 0.0-0.9 [facility] Comment on above: IG% - Immature Granu locytes (promyelocytes, myelocytes and metamyelocytes) > 1% indicates that a LEFT SHIFT is Present. MCH (RBC) [Entitic mass] 31.5 pg 27.0-32.0 [facility] Nucleated RBC/100 WBC (Bld) [Ratio] 0 % 0-5 [facility] MCHC Auto (RBC) [Mass/Vol]Or dered By: Timmy Floyd on 05-11-2023 MCHC (RBC) [Mass/Vol] 32.7 g/dL 32-[address] [facility] No Panel InformationOrdered By: Timmy Floyd on 05-11-2023 Urine Microalbumin/Creatinine Ratio 70.0 mg/g CRE <30 [facility] Estimated GFR (MDRD) Amer 68 mL/min >60 [facility] Comment on above: GFR Calc Estimated GFR (MDRD) Non-Af Amer 56 mL/min >60 [facility] Comment on above: Non- GFR Calc Prostate Specific Antigen Screen 1.54 ng/mL 0.00-4.00 [facility] Comment on above: This test was perfor med using the TPSA assay method for [employer] Access chemistry system. Values obtained with differentassay methods cannot be used interchangably.When changing PSA assays in the course of monitoring apatient, additional sequential testing should be carriedout to confirm baseline values. Platelets bldOrdered By: Chevy Floyd on 05-11-2023 Platelets (Bld) [#/Vol] 365 10*3/uL 150-450 [facility] Serum or plasma albumin jhon urement (mass/volume)Ordered By: Timmy Floyd on 05-11-2023 Albumin [Mass/Vol] 3.4 g/dL 3.2-5.0 [facility] Serum or plasma albumin/glob ulin mass ratioOrdered By: Timmy Floyd on 05-11-2023 Albumin/Globulin [Mass ratio] 0.8 {ratio} 0.9-2.4 [facility] Serum or plasma calcium jhon urement (mass/volume)Ordered By: Timmy Floyd on 05-11-2023 Calcium [Mass/Vol] 9.2 mg/dL 8.5-10.1 [facility] Serum or plasma cholesterol in HDL measurement (mass/volume)Ordered By: Timmy Floyd on 05-11-2023 Cholesterol in HDL [Mass/Vol] 48 mg/dL >40 [facility] Comment on above: The drugs N-Acetylcy steine and Metamizole may falsely depress this assay. Reference Range HDL <40 mg/dL Low HDL Cholesterol HDL >or= 60 mg/dL High HDL Cholesterol Serum or plasma cholesterol in VLDL measurement (mass/volume)Ordered By: Timmy Floyd on 05-11-2023 Cholesterol in VLDL [Mass/Vol] 40 mg/dL 5-40 [facility] Serum or plasma creatinine m easurement (mass/volume)Ordered By: Timmy Floyd on 05-11-2023 Creatinine [Mass/Vol] 1.34 mg/dL 0.70-1.[address] [facility] Comment on above: The validity of the calculated GFR & GFRAA in patients over 70 years has not been determined. Clinical correlation is essential. Serum or plasma low density lipoprotein (LDL) cholesterol measurement (mass/volume)Or[facility] By: [facility] on 05-11-2023 Cholesterol in LDL [Mass/Vol] 56 mg/dL 0-130 [facility] Serum or plasma urea nitroge n measurement (mass/volume)Ordered By: sharon Floyd on 05-11-2023 Urea nitrogen [Mass/Vol] 35 mg/dL 7-18 [facility] Thin prep Papanicolaou smear with manual screeningOrdered By: russellcaledoniarey Floyd on 05-11-2023 Thin prep Papanicolaou smear with manual screening 91.7 mg/L NO RANGE EST. [facility] Thin prep Papanicolaou smear with manual screening 22 U/L 15-37 [facility] Thin prep Papanicolaou smear with manual screening 7 5-15 [facility] Urine creatinine measurement (mass/volume)Ordered By: Timmy Floyd on 05-11-2023 Creatinine (U) [Mass/Vol] 131.00 mg/dL NO RANGE EST. [facility] Whole blood hemoglobin A1c/t otal hemoglobin ratio (mass fraction)Ordered By: Geoffcaledoniarey Floyd on 05-11-2023 HbA1c (Bld) [Mass fraction] 8.5 % 3.8-5.6 [facility] Comment on above: Normal < 5.7 % Predi abetic 5.7 - 6.4 % Diabetic >or= 6.5 % Please note range changes. Absolute lymphocyte counton 04-01-2022 Lymphocytes Auto (Unsp spec) [#/Vol] 1.94 10*3/uL 0.83-4.51 [facility] Work Phone: Basophil percentageon 2021 Basophils/100 WBC (Bld) 0.8 % 0-1 [facility] Work Phone: Bilirubin [Mass/Vol] 0.30 mg/dL 0.20-1.00 [facility] Work Phone: Comment on above: For patients on eltr ombopag therapy, use of Dimension [place] TBIL is not recommended. Chloride [Moles/Vol] 104 mmol/L 98-107 [facility] Work Phone: Eosinophils/100 WBC (Bld) 4.0 % 0-5 [facility] Work Phone: Glucose [Mass/Vol] 197 mg/dL 74-106 [facility] Work Phone: Comment on above: Fasting Glucose resu lt greater than or equal to 126 mg/dL suggests DIABETES MELLITUS per A.D.A. criteria. Neutrophils (Bld) [#/Vol] 3.3 10*3/uL 2.0-7.7 [facility] Work Phone: Neutrophils/100 WBC (Bld) 54.8 % 47-70 [facility] Work Phone: Potassium [Moles/Vol] 4.1 mmol/L 3.5-5.[address] [facility] Work Phone: Protein [Mass/Vol] 7.2 g/dL 6.4-8.2 [facility] Work Phone: Sodium [Moles/Vol] 136 mmol/L 136-145 [facility] Work Phone: WBC (Bld) [#/Vol] 6.1 10*3/uL 4.4-11.0 [facility] Work Phone: Blood erythrocytes count (nu mber/volume)on 04-01-2022 RBC (Bld) [#/Vol] 4.36 10*6/uL 4.6-6.2 [facility] Work Phone: Blood hemoglobin measurement (mass/volume)on 04-01-2022 Hemoglobin (Bld) [Mass/Vol] 13.4 g/dL 13.0-16.5 [facility] Work Phone: Blood lymphocytes/100 leukoc yteson 04-01-2022 Lymphocytes/100 WBC (Bld) 32.0 % 19-41 [facility] Work Phone: Blood monocytes/100 leukocyt eson 04-01-2022 Monocytes/100 WBC (Bld) 7.7 % 0-10 [facility] Work Phone: Blood platelet mean volumeon 04-01-2022 Platelet mean volume (Bld) [Entitic vol] 9.6 fL 6.2-12.0 [facility] Work Phone: Determination of erythrocyte mean corpuscular volume (MCV)on 04-01-2022 MCV (RBC) [Entitic vol] 92.7 fL 80-94 [facility] Work Phone: Hematocrit Auto (Bld) [Volum e fraction]on 04-01-2022 Hematocrit (Bld) [Volume fraction] 40.4 % 40-54 [facility] Work Phone: Laboratory - Chemistry and C hemistry - challengeon 04-01-2022 ALP [Catalytic activity/Vol] 63 U/L 45-117 [facility] Work Phone: ALT [Catalytic activity/Vol] 32 U/L 16-61 [facility] Work Phone: [phone] CO2 [Moles/Vol] 24.0 mmol/L 21.0-32.0 [facility] Work Phone: Globulin (S) [Mass/Vol] 3.8 g/dL 2.2-4.2 [facility] Work Phone: Urea nitrogen/Creatinine [Mass ratio] 18.3 mg/mg 10-20 [facility] Work Phone: Laboratory - Hematology and Cell countson 04-01-2022 Erythrocyte distribution width (RBC) [Entitic vol] 42.8 fL 35.1-43.9 [facility] Work Phone: Erythrocyte distribution width (RBC) [Ratio] 12.6 % 11.6-14.6 [facility] Work Phone: [phone] Immature granulocytes/100 WBC (Bld) 0.700 % 0.0-0.9 [facility] Work Phone: [phone] Comment on above: IG% - Immature Granu locytes (promyelocytes, myelocytes and metamyelocytes) > 1% indicates that a LEFT SHIFT is Present. MCH (RBC) [Entitic mass] 30.7 pg 27.0-32.0 [facility] Work Phone: Nucleated RBC/100 WBC (Bld) [Ratio] 0 % 0-5 [facility] Work Phone: [phone] MCHC Auto (RBC) [Mass/Vol]on 04-01-2022 MCHC (RBC) [Mass/Vol] 33.2 g/dL 32-[address] [facility] Work Phone: No Panel Informationon 04-01 Estimated GFR (MDRD) Amer 81 mL/min >60 [facility] Work Phone: Comment on above: GFR Calc Estimated GFR (MDRD) Non-Af Amer 67 mL/min >60 [facility] Work Phone: Comment on above: Non- GFR Calc Prostate Specific Antigen Screen 1.38 ng/mL 0.00-4.00 [facility] Work Phone: [phone] Comment on above: This test was perfor med using the TPSA assay method for theTHERAVECTYSinsight surgical [facility] chemistry system. Values obtained with differentassay methods cannot be used interchangably.When changing PSA assays in the course of monitoring apatient, additional sequential testing should be carriedout to confirm baseline values. Thyroid Stimulating Hormone (TSH) 1.01 uIU/mL 0.358-3.74 [facility] Work Phone: [phone] Vitamin D 25-Hydroxy 47.2 ng/mL [facility] Work Phone: [phone] Comment on above: Vitamin D 25(OH) Sta tus Range Deficiency <20 ng/mL (50nmol/L) Insufficiency 20 - 30 ng/mL (50 - 75 nmol/L) Sufficiency 30 - 100 ng/mL (75 - 250 nmol/L) Toxicity >100 ng/mL (>250 nmol/L) Platelets bldon 04-01-2022 Platelets (Bld) [#/Vol] 319 10*3/uL 150-450 [facility] Work Phone: [phone] Serum or plasma albumin jhon urement (mass/volume)on 04-01-2022 Albumin [Mass/Vol] 3.4 g/dL 3.2-5.0 [facility] Work Phone: [phone] Serum or plasma albumin/glob ulin mass ratioon 04-01-2022 Albumin/Globulin [Mass ratio] 0.9 {ratio} 0.9-2.4 [facility] Work Phone: [phone] Serum or plasma calcium jhon urement (mass/volume)on 04-01-2022 Calcium [Mass/Vol] 8.9 mg/dL 8.5-10.1 [facility] Work Phone: Serum or plasma creatinine m easurement (mass/volume)on 04-01-2022 Creatinine [Mass/Vol] 1.15 mg/dL 0.70-1.[address] [facility] Work Phone: Comment on above: The validity of the calculated GFR & GFRAA in patients over 70 years has not been determined. Clinical correlation is essential. Serum or plasma urea nitroge n measurement (mass/volume)on 04-01-2022 Urea nitrogen [Mass/Vol] 21 mg/dL 7-18 [facility] Work Phone: [phone] Thin prep Papanicolaou smear with manual screeningon 04-01-2022 Thin prep Papanicolaou smear with manual screening 17 U/L 15-37 [facility] Work Phone: [phone] Thin prep Papanicolaou smear with manual screening 8 5-15 [facility] Work Phone: [phone] Absolute lymphocyte counton 03-30-2022 Lymphocytes Auto (Unsp spec) [#/Vol] 1.27 10*3/uL 0.83-4.51 [facility] Work Phone: Basophil percentageon 2021 Basophils/100 WBC (Bld) 0.8 % 0-1 [facility] Work Phone: Chloride [Moles/Vol] 106 mmol/L 98-107 [facility]: Eosinophils/100 WBC (Bld) 2.7 % 0-5 [facility] Work Phone: Glucose [Mass/Vol] 238 mg/dL 74-106 [facility] Work Phone: Comment on above: Glucose result great er than or equal to 200 mg/dLsuggests DIABETES MELLITUS per A.D.A. criteria. Neutrophils (Bld) [#/Vol] 4.4 10*3/uL 2.0-7.7 [facility] Work Phone: Neutrophils/100 WBC (Bld) 67.1 % 47-70 [facility] Work Phone: Potassium [Moles/Vol] 4.4 mmol/L 3.5-5.[address] [facility] Work Phone: Comment on above: Moderate Hemolysis, Result may be falsely increased. Sodium [Moles/Vol] 138 mmol/L 136-145 [facility] Work Phone: WBC (Bld) [#/Vol] 6.6 10*3/uL 4.4-11.0 [facility] Work Phone: Blood erythrocytes count (nu mber/volume)on 03-30-2022 RBC (Bld) [#/Vol] 4.19 10*6/uL 4.6-6.2 [facility] Work Phone: Blood hemoglobin measurement (mass/volume)on 03-30-2022 Hemoglobin (Bld) [Mass/Vol] 13.2 g/dL 13.0-16.5 [facility] Work Phone: Blood lymphocytes/100 leukoc yteson 03-30-2022 Lymphocytes/100 WBC (Bld) 19.3 % 19-41 [facility] Work Phone: Blood monocytes/100 leukocyt eson 03-30-2022 Monocytes/100 WBC (Bld) 9.6 % 0-10 [facility] Work Phone: Blood platelet mean volumeon 03-30-2022 Platelet mean volume (Bld) [Entitic vol] 9.3 fL 6.2-12.0 [facility] Work Phone: Determination of erythrocyte mean corpuscular volume (MCV)on 03-30-2022 MCV (RBC) [Entitic vol] 93.3 fL 80-94 [facility] Work Phone: Hematocrit Auto (Bld) [Volum e fraction]on 03-30-2022 Hematocrit (Bld) [Volume fraction] 39.1 % 40-54 [facility] Work Phone: Laboratory - Chemistry and C hemistry - challengeon 03-30-2022 CO2 [Moles/Vol] 25.0 mmol/L 21.0-32.0 [facility] Work Phone: Urea nitrogen/Creatinine [Mass ratio] 21.7 mg/mg 10-20 [facility] Work Phone: Laboratory - Hematology and Cell countson 03-30-2022 Erythrocyte distribution width (RBC) [Entitic vol] 42.5 fL 35.1-43.9 [facility] Work Phone: [phone] Erythrocyte distribution width (RBC) [Ratio] 12.4 % 11.6-14.6 [facility] Work Phone: Immature granulocytes/100 WBC (Bld) 0.500 % 0.0-0.9 [facility] Work Phone: Comment on above: IG% - Immature Granu locytes (promyelocytes, myelocytes and metamyelocytes) > 1% indicates that a LEFT SHIFT is Present. MCH (RBC) [Entitic mass] 31.5 pg 27.0-32.0 [facility] Work Phone: [phone] Nucleated RBC/100 WBC (Bld) [Ratio] 0 % 0-5 [facility] Work Phone: [phone] MCHC Auto (RBC) [Mass/Vol]on 03-30-2022 MCHC (RBC) [Mass/Vol] 33.8 g/dL 32-[address] [facility] Work Phone: No Panel Informationon 03-30 Troponin I High Sensitivity 5 pg/mL 3.0-78.0 [facility] Work Phone: Comment on above: Please Note: New Angela t Units and Gender Specific Reference Ranges. For more information see Policy Stat Procedure [place] High Sensitivity Troponin (TNIH) and attachments. Estimated Creatinine Clearance Calc 48.75 ml/min [facility] Work Phone: Estimated GFR (MDRD) Amer 63 mL/min >60 [facility] Work Phone: Comment on above: GFR Calc Estimated GFR (MDRD) Non-Af Amer 52 mL/min >60 [facility] Work Phone: Comment on above: Non- GFR Calc Platelets bldon 03-30-2022 Platelets (Bld) [#/Vol] 300 10*3/uL 150-450 [facility] Work Phone: [phone] Serum or plasma calcium jhon urement (mass/volume)on 03-30-2022 Calcium [Mass/Vol] 9.1 mg/dL 8.5-10.1 [facility] Work Phone: [phone] Serum or plasma creatinine m easurement (mass/volume)on 03-30-2022 Creatinine [Mass/Vol] 1.43 mg/dL 0.70-1.[address] [facility] Work Phone: Comment on above: The validity of the calculated GFR & GFRAA in patients over 70 years has not been determined. Clinical correlation is essential. Serum or plasma urea nitroge n measurement (mass/volume)on 03-30-2022 Urea nitrogen [Mass/Vol] 31 mg/dL 7-18 [facility] Work Phone: Thin prep Papanicolaou smear with manual screeningon 03-30-2022 Thin prep Papanicolaou smear with manual screening 7 5-15 [facility] Work Phone: Glucose Glucometer (BldC) [M ass/Vol]on 02-26-2022 Glucose [Mass/Vol] 112 mg/dL 74-106 [facility] Work Phone: Comment on above: MANAGEMENT OF PATIEN T CARE PER NURSING PROTOCOL Basophil percentageon 2021 Chloride [Moles/Vol] 103 mmol/L 98-107 [facility] Work Phone: Glucose [Mass/Vol] 140 mg/dL 74-106 [facility] Work Phone: Comment on above: Fasting Glucose resu lt greater than or equal to 126 mg/dL suggests DIABETES MELLITUS per A.D.A. criteria. Potassium [Moles/Vol] 4.6 mmol/L 3.5-5.[address] [facility] Work Phone: Sodium [Moles/Vol] 136 mmol/L 136-145 [facility] Work Phone: Laboratory - Chemistry and C hemistry - challengeon 01-20-2022 CO2 [Moles/Vol] 30.0 mmol/L 21.0-32.0 [facility] Work Phone: Urea nitrogen/Creatinine [Mass ratio] 27.4 mg/mg 10-20 [facility] Work Phone: No Panel Informationon 01-20 Estimated GFR (MDRD) Amer 62 mL/min >60 [facility] Work Phone: Comment on above: GFR Calc Estimated GFR (MDRD) Non-Af Amer 51 mL/min >60 [facility] Work Phone: Comment on above: Non- GFR Calc Serum or plasma calcium jhon urement (mass/volume)on 01-20-2022 Calcium [Mass/Vol] 9.6 mg/dL 8.5-10.1 [facility] Work Phone: Serum or plasma creatinine m easurement (mass/volume)on 01-20-2022 Creatinine [Mass/Vol] 1.46 mg/dL 0.70-1.[address] [facility] Work Phone: Comment on above: The validity of the calculated GFR & GFRAA in patients over 70 years has not been determined. Clinical correlation is essential. Serum or plasma urea nitroge n measurement (mass/volume)on 01-20-2022 Urea nitrogen [Mass/Vol] 40 mg/dL 7-18 [facility] Work Phone: Thin prep Papanicolaou smear with manual screeningon 01-20-2022 Thin prep Papanicolaou smear with manual screening 3 5-15 [facility] Work Phone: Absolute lymphocyte counton 01-02-2022 Lymphocytes Auto (Unsp spec) [#/Vol] 2.23 10*3/uL 0.83-4.51 [facility] Work Phone: Basophil percentageon 2021 Basophils/100 WBC (Bld) 0.4 % 0-1 [facility] Work Phone: Chloride [Moles/Vol] 105 mmol/L 98-107 [facility] Work Phone: Eosinophils/100 WBC (Bld) 1.8 % 0-5 [facility] Work Phone: Glucose [Mass/Vol] 185 mg/dL 74-106 [facility] Work Phone: Comment on above: Fasting Glucose resu lt greater than or equal to 126 mg/dL suggests DIABETES MELLITUS per A.D.A. criteria. Neutrophils (Bld) [#/Vol] 4.3 10*3/uL 2.0-7.7 [facility] Work Phone: Neutrophils/100 WBC (Bld) 58.6 % 47-70 [facility] Work Phone: Potassium [Moles/Vol] 4.3 mmol/L 3.5-5.[address] [facility] Work Phone: [phone] Sodium [Moles/Vol] 137 mmol/L 136-145 [facility] Work Phone: WBC (Bld) [#/Vol] 7.3 10*3/uL 4.4-11.0 [facility] Work Phone: Blood erythrocytes count (nu mber/volume)on 01-02-2022 RBC (Bld) [#/Vol] 4.28 10*6/uL 4.6-6.2 [facility] Work [facility]: Blood hemoglobin measurement (mass/volume)on 01-02-2022 Hemoglobin (Bld) [Mass/Vol] 13.7 g/dL 13.0-16.5 [facility] Work Phone: Blood lymphocytes/100 leukoc yteson 01-02-2022 Lymphocytes/100 WBC (Bld) 30.5 % 19-41 [facility] Work Phone: Blood monocytes/100 leukocyt eson 01-02-2022 Monocytes/100 WBC (Bld) 8.4 % 0-10 [facility] Work Phone: Blood platelet mean volumeon 01-02-2022 Platelet mean volume (Bld) [Entitic vol] 9.3 fL 6.2-12.0 [facility] Work Phone: Determination of erythrocyte mean corpuscular volume (MCV)on 01-02-2022 MCV (RBC) [Entitic vol] 93.5 fL 80-94 [facility] Work Phone: Hematocrit Auto (Bld) [Volum e fraction]on 01-02-2022 Hematocrit (Bld) [Volume fraction] 40.0 % 40-54 [facility] Work Phone: INR in Blood by Coagulation assayon 01-02-2022 INR Coag (Bld) [Relative time] 1.1 {INR} [facility] Work Phone: Laboratory - Chemistry and C hemistry - challengeon 01-02-2022 CO2 [Moles/Vol] 26.0 mmol/L 21.0-32.0 [facility] Work Phone: Urea nitrogen/Creatinine [Mass ratio] 27.6 mg/mg 10-20 [facility] Work Phone: Laboratory - Coagulationon 0 01-02-2022 aPTT Coag (Bld) [Time] 27.1 s 24.1-36.2 [facility] Work Phone: [phone] PT Coag (PPP) [Time] 13.1 s 11.7-14.[address] [facility] Work Phone: Laboratory - Hematology and Cell countson 01-02-2022 Erythrocyte distribution width (RBC) [Entitic vol] 42.8 fL 35.1-43.9 [facility] Work Phone: [phone] Erythrocyte distribution width (RBC) [Ratio] 12.4 % 11.6-14.6 [facility] Work Phone: Immature granulocytes/100 WBC (Bld) 0.300 % 0.0-0.9 [facility] Work Phone: [phone] Comment on above: IG% - Immature Granu locytes (promyelocytes, myelocytes and metamyelocytes) > 1% indicates that a LEFT SHIFT is Present. MCH (RBC) [Entitic mass] 32.0 pg 27.0-32.0 [facility] Work Phone: Nucleated RBC/100 WBC (Bld) [Ratio] 0 % 0-5 [facility] Work Phone: MCHC Auto (RBC) [Mass/Vol]on 01-02-2022 MCHC (RBC) [Mass/Vol] 34.3 g/dL 32-36 [facility] Work Phone: No Panel Informationon 01-02 Estimated GFR (MDRD) Amer 80 mL/min >60 [facility] Work Phone: Comment on above: GFR Calc Estimated GFR (MDRD) Non-Af Amer 66 mL/min >60 [facility] Work Phone: [phone] Comment on above: Non- GFR Calc Platelets bldon 01-02-2022 Platelets (Bld) [#/Vol] 330 10*3/uL 150-450 [facility] Work Phone: Serum or plasma calcium jhon urement (mass/volume)on 01-02-2022 Calcium [Mass/Vol] 9.3 mg/dL 8.5-10.1 [facility] Work Phone: [phone] Serum or plasma creatinine m easurement (mass/volume)on 01-02-2022 Creatinine [Mass/Vol] 1.16 mg/dL 0.70-1.[address] [facility] Work Phone: Comment on above: The validity of the calculated GFR & GFRAA in patients over 70 years has not been determined. Clinical correlation is essential. Serum or plasma urea nitroge n measurement (mass/volume)on 01-02-2022 Urea nitrogen [Mass/Vol] 32 mg/dL 7-18 [facility] Work Phone: Thin prep Papanicolaou smear with manual screeningon 01-02-2022 Thin prep Papanicolaou smear with manual screening 6 5-15 [facility] Work Phone: Absolute lymphocyte counton 10-02-2021 Lymphocytes Auto (Unsp spec) [#/Vol] 1.16 10*3/uL 0.83-4.51 [facility] Work Phone: Basophil percentageon 2020 Chloride [Moles/Vol] 100 mmol/L 98-107 [facility] Work Phone: Eosinophils/100 WBC (Bld) 1.2 % 0-5 [facility] Work Phone: Glucose [Mass/Vol] 223 mg/dL 74-106 [facility] Work Phone: Comment on above: Glucose result great er than or equal to 200 mg/dLsuggests DIABETES MELLITUS per A.D.A. criteria.Please note revised GLUCOSE reference range effective 2017. Neutrophils (Bld) [#/Vol] 6.9 10*3/uL 2.0-7.7 [facility] Work Phone: Potassium [Moles/Vol] 4.3 mmol/L 3.5-5.1 [facility] Work Phone: [phone] Sodium [Moles/Vol] 137 mmol/L 136-145 [facility] Work Phone: [phone] WBC (Bld) [#/Vol] 9.0 10*3/uL 4.4-11.0 [facility] Work Phone: [phone] Blood erythrocytes count (nu mber/volume)on 10-02-2021 RBC (Bld) [#/Vol] 4.49 10*6/uL 4.6-6.2 [facility] Work [facility]: Blood hemoglobin measurement (mass/volume)on 10-02-2021 Hemoglobin (Bld) [Mass/Vol] 14.2 g/dL 13.0-16.5 [facility] Work Phone: [phone] Blood lymphocytes/100 leukoc yteson 10-02-2021 Lymphocytes/100 WBC (Bld) 12.9 % 19-41 [facility] Work Phone: [phone] Blood monocytes/100 leukocyt eson 10-02-2021 Monocytes/100 WBC (Bld) 9.2 % 0-10 [facility] Work Phone: [phone] Blood platelet mean volumeon 10-02-2021 Platelet mean volume (Bld) [Entitic vol] 8.9 fL 6.2-12.0 [facility] Work Phone: [phone] Determination of erythrocyte mean corpuscular volume (MCV)on 10-02-2021 MCV (RBC) [Entitic vol] 93.3 fL 80-94 [facility] Work Phone: Hematocrit Auto (Bld) [Volum e fraction]on 10-02-2021 Hematocrit (Bld) [Volume fraction] 41.9 % 40-54 [facility] Work Phone: Laboratory - Chemistry and C hemistry - challengeon 10-02-2021 CO2 [Moles/Vol] 26.0 mmol/L 21.0-32.0 [facility] Work Phone: [phone] Urea nitrogen/Creatinine [Mass ratio] 25.2 mg/mg 10-20 [facility] Work Phone: [phone] Laboratory - Hematology and Cell countson 10-02-2021 Basophils/100 WBC (Unsp spec) 0.3 % 0-1 [facility] Work Phone: [phone] Erythrocyte distribution width (RBC) [Entitic vol] 44.9 fL 35.1-43.9 [facility] Work Phone: [phone] Erythrocyte distribution width (RBC) [Ratio] 13.2 % 11.6-14.6 [facility] Work Phone: [phone] Immature granulocytes/100 WBC (Bld) 0.300 % 0.0-0.9 [facility] Work Phone: [phone] Comment on above: IG% - Immature Granu locytes (promyelocytes, myelocytes and metamyelocytes) > 1% indicates that a LEFT SHIFT is Present. MCH (RBC) [Entitic mass] 31.6 pg 27.0-32.0 [facility] Work Phone: [phone] Neutrophils/100 WBC (Bld) 76.1 % 47-70 [facility] Work Phone: [phone] Nucleated RBC/100 WBC (Bld) [Ratio] 0 % 0-5 [facility] Work Phone: [phone] MCHC Auto (RBC) [Mass/Vol]on 10-02-2021 MCHC (RBC) [Mass/Vol] 33.9 g/dL 32-[address] [facility] Work Phone: [phone] Panel Informationon 10-02 Troponin I High Sensitivity 7 pg/mL 3.0-78.0 [facility] Work Phone: [phone] Comment on above: Please Note: New Angela t Units and Gender Specific Reference Ranges. For more information see Policy Stat Procedure [place] High Sensitivity Troponin (TNIH) and attachments. SARS-CoV-2 Antigen (Rapid) [facility] Work Phone: [phone] Estimated Creatinine Clearance Calc 52.37 ml/min [facility] Work Phone: Estimated GFR (MDRD) Amer 67 mL/min >60 [facility] Work Phone: Comment on above: GFR Calc Estimated GFR (MDRD) Non-Af Amer 56 mL/min >60 [facility] Work Phone: Comment on above: Non- GFR Calc Platelets bldon 10-02-2021 Platelets (Bld) [#/Vol] 387 10*3/uL 150-450 [facility] Work Phone: Serum or plasma calcium jhon urement (mass/volume)on 10-02-2021 Calcium [Mass/Vol] 9.3 mg/dL 8.5-10.1 [facility] Work Phone: Serum or plasma creatinine m easurement (mass/volume)on 10-02-2021 Creatinine [Mass/Vol] 1.35 mg/dL 0.70-1.[address] [facility] Work Phone: Comment on above: The validity of the calculated GFR & GFRAA in patients over 70 years has not been determined. Clinical correlation is essential. Serum or plasma urea nitroge n measurement (mass/volume)on 10-02-2021 Urea nitrogen [Mass/Vol] 34 mg/dL 7-18 [facility] Work Phone: Thin prep Papanicolaou smear with manual screeningon 10-02-2021 Thin prep Papanicolaou smear with manual screening 11 5-15 [facility] Work Phone: [phone] Absolute lymphocyte counton 09-23-2021 Lymphocytes Auto (Unsp spec) [#/Vol] 2.42 10*3/uL 0.83-4.51 [facility] Work Phone: Basophil percentageon 2020 Bilirubin [Mass/Vol] 0.30 mg/dL 0.20-1.00 [facility] Work Phone: Comment on above: For patients on eltr ombopag therapy, use of Dimension [place] TBIL is not recommended. Chloride [Moles/Vol] 105 mmol/L 98-107 [facility] Work Phone: Eosinophils/100 WBC (Bld) 1.1 % 0-5 [facility] Work Phone: Glucose [Mass/Vol] 156 mg/dL 74-106 [facility] Work Phone: Comment on above: Fasting Glucose resu lt greater than or equal to 126 mg/dL suggests DIABETES MELLITUS per A.D.A. criteria.Please note revised GLUCOSE reference range effective 2017. Neutrophils (Bld) [#/Vol] 5.9 10*3/uL 2.0-7.7 [facility] Work Phone: Potassium [Moles/Vol] 4.6 mmol/L 3.5-5.[address] [facility] Work Phone: Protein [Mass/Vol] 8.0 g/dL 6.4-8.2 [facility] Work Phone: Sodium [Moles/Vol] 137 mmol/L 136-145 [facility] Work Phone: WBC (Bld) [#/Vol] 9.2 10*3/uL 4.4-11.0 [facility] Work Phone: Blood erythrocytes count (nu mber/volume)on 09-23-2021 RBC (Bld) [#/Vol] 4.51 10*6/uL 4.6-6.2 [facility] Work Phone: Blood hemoglobin measurement (mass/volume)on 09-23-2021 Hemoglobin (Bld) [Mass/Vol] 14.3 g/dL 13.0-16.5 [facility] Work Phone: Blood lymphocytes/100 leukoc yteson 09-23-2021 Lymphocytes/100 WBC (Bld) 26.2 % 19-41 [facility] Work Phone: Blood monocytes/100 leukocyt eson 09-23-2021 Monocytes/100 WBC (Bld) 7.9 % 0-10 [facility] Work Phone: Blood platelet mean volumeon 09-23-2021 Platelet mean volume (Bld) [Entitic vol] 9.3 fL 6.2-12.0 [facility] Work Phone: Determination of erythrocyte mean corpuscular volume (MCV)on 09-23-2021 MCV (RBC) [Entitic vol] 93.8 fL 80-94 [facility] Work Phone: [phone] Hematocrit Auto (Bld) [Volum e fraction]on 09-23-2021 Hematocrit (Bld) [Volume fraction] 42.3 % 40-54 [facility] Work Phone: Laboratory - Chemistry and C hemistry - challengeon 09-23-2021 ALP [Catalytic activity/Vol] 80 U/L 45-117 [facility] Work Phone: [phone] ALT [Catalytic activity/Vol] 41 U/L 16-61 [facility] Work Phone: [phone] CO2 [Moles/Vol] 24.0 mmol/L 21.0-32.0 [facility] Work Phone: [phone] Globulin (S) [Mass/Vol] 4.6 g/dL 2.2-4.2 [facility] Work Phone: [phone] Urea nitrogen/Creatinine [Mass ratio] 27.4 mg/mg 10-20 [facility] Work Phone: [phone] Laboratory - Hematology and Cell countson 09-23-2021 Basophils/100 WBC (Unsp spec) 0.4 % 0-1 [facility] Work Phone: [phone] Erythrocyte distribution width (RBC) [Entitic vol] 44.0 fL 35.1-43.9 [facility] Work Phone: [phone] Erythrocyte distribution width (RBC) [Ratio] 12.9 % 11.6-14.6 [facility] Work Phone: [phone] Immature granulocytes/100 WBC (Bld) 0.700 % 0.0-0.9 [facility] Work Phone: [phone] Comment on above: IG% - Immature Granu locytes (promyelocytes, myelocytes and metamyelocytes) > 1% indicates that a LEFT SHIFT is Present. MCH (RBC) [Entitic mass] 31.7 pg 27.0-32.0 [facility] Work Phone: Neutrophils/100 WBC (Bld) 63.7 % 47-70 [facility] Work Phone: [phone] Nucleated RBC/100 WBC (Bld) [Ratio] 0 % 0-5 [facility] Work Phone: [phone] MCHC Auto (RBC) [Mass/Vol]on 09-23-2021 MCHC (RBC) [Mass/Vol] 33.8 g/dL 32-[address] [facility] Work Phone: No Panel Informationon 09-23 Estimated GFR (MDRD) Amer 80 mL/min >60 [facility] Work Phone: Comment on above: GFR Calc Estimated GFR (MDRD) Non-Af Amer 66 mL/min >60 [facility] Work Phone: Comment on above: Non- GFR Calc Thyroid Stimulating Hormone (TSH) 1.08 uIU/mL 0.358-3.74 [facility] Work Phone: Vitamin D 25-Hydroxy 34.2 ng/mL [facility] Work Phone: Comment on above: Vitamin D 25(OH) Sta tus Range Deficiency <20 ng/mL (50nmol/L) Insufficiency 20 - 30 ng/mL (50 - 75 nmol/L) Sufficiency 30 - 100 ng/mL (75 - 250 nmol/L) Toxicity >100 ng/mL (>250 nmol/L) Platelets bldon 09-23-2021 Platelets (Bld) [#/Vol] 398 10*3/uL 150-450 [facility] Work Phone: [phone] Serum or plasma albumin jhon urement (mass/volume)on 09-23-2021 Albumin [Mass/Vol] 3.4 g/dL 3.2-5.0 [facility] Work Phone: [phone] Serum or plasma albumin/glob ulin mass ratioon 09-23-2021 Albumin/Globulin [Mass ratio] 0.7 {ratio} 0.9-2.4 [facility] Work Phone: Serum or plasma calcium jhon urement (mass/volume)on 09-23-2021 Calcium [Mass/Vol] 9.7 mg/dL 8.5-10.1 [facility] Work Phone: Serum or plasma creatinine m easurement (mass/volume)on 09-23-2021 Creatinine [Mass/Vol] 1.17 mg/dL 0.70-1.[address] [facility] Work Phone: Comment on above: The validity of the calculated GFR & GFRAA in patients over 70 years has not been determined. Clinical correlation is essential. Serum or plasma urea nitroge n measurement (mass/volume)on 09-23-2021 Urea nitrogen [Mass/Vol] 32 mg/dL 7-18 [facility] Work Phone: Thin prep Papanicolaou smear with manual screeningon 09-23-2021 Thin prep Papanicolaou smear with manual screening 19 U/L 15-37 [facility] Work Phone: Thin prep Papanicolaou smear with manual screening 8 5-15 [facility] Work Phone: Vital Signs Date Time Vital Sign Value Performing Clinician Kenny segura 03-13-2025 13:43-0400 Body height 175.[address] Timmy Floyd MD Work Phone: [facility] 03-13-2025 13:43-0400 Body mass index (BMI) [Ratio] 28.2 kg/m2 Dr. Timmy Floyd MD Work Phone: [facility] 03-13-2025 13:43-0400 Body temperature 97.6 [degF] Dr. Timmy Folyd MD Work Phone: [facility] 03-13-2025 13:43-0400 Body weight 86.[address] Timmy Floyd MD Work Phone: [facility] 03-13-2025 13:43-0400 Diastolic blood pressure 66 mm[Hg] Dr. Timmy Floyd MD Work Phone: [facility] 03-13-2025 13:43-0400 Heart rate 86 /min Dr. Timmy Floyd MD Work Phone: [facility] 03-13-2025 13:43-0400 Respiratory rate 18 /min Dr. Timmy Floyd MD Work Phone: [facility] 03-13-2025 13:43-0400 SaO2% (BldA) [Mass fraction] 95 % Dr. Timmy Floyd MD Work Phone: [facility] 03-13-2025 13:43-0400 Systolic blood pressure 120 mm[Hg] Dr. Timmy Floyd MD Work Phone: [facility] 01-09-2025 15:05-0400 Body height 175.[address] Timmy Floyd MD Work Phone: [facility] 01-09-2025 15:05-0400 Body mass index (BMI) [Ratio] 28 kg/m2 Dr. Timmy Floyd MD Work Phone: [facility] 01-09-2025 15:05-0400 Body weight 86.[address] Timmy Floyd MD Work Phone: [facility] 01-09-2025 15:03-0400 Body temperature 98.4 [degF] Dr. Timmy Floyd MD Work Phone: [facility] 01-09-2025 15:03-0400 Diastolic blood pressure 65 mm[Hg] Dr. Timmy Floyd MD Work Phone: [facility] 01-09-2025 15:03-0400 Heart rate 95 /min Dr. Timmy Floyd MD Work Phone: [facility] 01-09-2025 15:03-0400 Respiratory rate 18 /min Dr. Timmy Floyd MD Work Phone: [facility] 01-09-2025 15:03-0400 SaO2% (BldA) [Mass fraction] 94 % Dr. Timmy Floyd MD Work Phone: [facility] 01-09-2025 15:03-0400 Systolic blood pressure 109 mm[Hg] Dr. Timmy Floyd MD Work Phone: [facility] 01-02-2025 15:17-0400 Body height 175.[address] Timmy Floyd MD Work Phone: [facility] 01-02-2025 15:17-0400 Body mass index (BMI) [Ratio] 27.7 kg/m2 Dr. Timmy Floyd MD Work Phone: [facility] 01-02-2025 15:17-0400 Body temperature 97.3 [degF] Dr. Timmy Floyd MD Work Phone: [facility] 01-02-2025 15:17-0400 Body weight 85.[address] Timmy Floyd MD Work Phone: [facility] 01-02-2025 15:17-0400 Diastolic blood pressure 60 mm[Hg] Dr. Timmy Floyd MD Work Phone: [facility] 01-02-2025 15:17-0400 Heart rate 80 /min Dr. Timmy Floyd MD Work Phone: [facility] 01-02-2025 15:17-0400 Respiratory rate 14 /min Dr. Timmy Floyd MD Work Phone: [facility] 01-02-2025 15:17-0400 SaO2% (BldA) [Mass fraction] 96 % Dr. Timmy Floyd MD Work Phone: [facility] 01-02-2025 15:17-0400 Systolic blood pressure 118 mm[Hg] Dr. Timmy Floyd MD Work Phone: [facility] 12-21-2024 15:44-0400 Body height 175.[address] Timmy Floyd MD Work Phone: [facility] 12-21-2024 15:44-0400 Body mass index (BMI) [Ratio] 28.2 kg/m2 Dr. Timmy Floyd MD Work Phone: [facility] 12-21-2024 15:44-0400 Body temperature 98 [degF] Dr. Timmy Floyd MD Work Phone: [facility] 12-21-2024 15:44-0400 Body weight 86.[address] Timmy Floyd MD Work Phone: [facility] 12-21-2024 15:44-0400 Diastolic blood pressure 78 mm[Hg] Dr. Timmy Floyd MD Work Phone: [facility] 12-21-2024 15:44-0400 Heart rate 84 /min Dr. Timmy Floyd MD Work Phone: [facility] 12-21-2024 15:44-0400 Respiratory rate 14 /min Dr. Timmy Floyd MD Work Phone: [facility] 12-21-2024 15:44-0400 SaO2% (BldA) [Mass fraction] 98 % Dr. Timmy Floyd MD Work Phone: [facility] 12-21-2024 15:44-0400 Systolic blood pressure 124 mm[Hg] Dr. Timmy Floyd MD Work Phone: [facility] 12-01-2024 13:28-0500 Body mass index (BMI) [Ratio] 29 kg/m2 Dr. Timmy Floyd MD Work Phone: [facility] 12-01-2024 13:28-0500 Body temperature 97.4 [degF] Dr. Timmy Floyd MD Work Phone: [facility] 12-01-2024 13:28-0500 Body weight 89.[address] Timmy Floyd MD Work Phone: [facility] 12-01-2024 13:28-0500 Diastolic blood pressure 78 mm[Hg] Dr. Timmy Floyd MD Work Phone: [facility] 12-01-2024 13:28-0500 Heart rate 86 /min Dr. Timmy Floyd MD Work Phone: [facility] 12-01-2024 13:28-0500 Respiratory rate 16 /min Dr. Timmy Floyd MD Work Phone: [facility] 12-01-2024 13:28-0500 SaO2% (BldA) [Mass fraction] 95 % Dr. Timmy Floyd MD Work Phone: [facility] 12-01-2024 13:28-0500 Systolic blood pressure 132 mm[Hg] Dr. Timmy Floyd MD Work Phone: [facility] 11-21-2024 15:52-0500 SaO2% (BldA) [Mass fraction] 98 % Dr. Timmy Floyd MD Work Phone: [facility] 11-21-2024 15:42-0500 Body temperature 98.2 [degF] Dr. Timmy Floyd MD Work Phone: [facility] 11-21-2024 15:42-0500 Diastolic blood pressure 78 mm[Hg] Dr. Timmy Floyd MD Work Phone: [facility] 11-21-2024 15:42-0500 Heart rate 93 /min Dr. Timmy Floyd MD Work Phone: [facility] 11-21-2024 15:42-0500 Respiratory rate 12 /min Dr. Timmy Floyd MD Work Phone: [facility] 11-21-2024 15:42-0500 Systolic blood pressure 130 mm[Hg] Dr. Timmy Floyd MD Work Phone: [facility] 11-11-2024 09:50-0500 Body mass index (BMI) [Ratio] 28.8 kg/m2 Dr. Timmy Floyd MD Work Phone: [facility] 11-11-2024 09:50-0500 Body weight 88.[address] Timmy Floyd MD Work Phone: [facility] 11-11-2024 09:50-0500 Diastolic blood pressure 74 mm[Hg] Dr. Timmy Floyd MD Work Phone: [facility] 11-11-2024 09:50-0500 Heart rate 70 /min Dr. Timmy Flody MD Work Phone: [facility] 11-11-2024 09:50-0500 Respiratory rate 18 /min Dr. Timmy Floyd MD Work Phone: [facility] 11-11-2024 09:50-0500 SaO2% (BldA) [Mass fraction] 94 % Dr. Timmy Floyd MD Work Phone: [facility] 11-11-2024 09:50-0500 Systolic blood pressure 125 mm[Hg] Dr. Timmy Floyd MD Work Phone: [facility] 12-03-2023 14:08-0500 Body height 175.[address] Timmy Floyd Work Phone: [facility] 12-03-2023 14:08-0500 Body mass index (BMI) [Ratio] 28 kg/m2 Dr. Timmy Floyd Work Phone: [facility] 12-03-2023 14:08-0500 Body temperature 97.2 [degF] Dr. Timmy Floyd Work Phone: [facility] 12-03-2023 14:08-0500 Body weight 86.[address] Timmy Floyd Work Phone: [facility] 12-03-2023 14:08-0500 Diastolic blood pressure 62 mm[Hg] Dr. Timmy Floyd Work Phone: [facility] 12-03-2023 14:08-0500 Heart rate 61 /min Dr. Timmy Floyd Work Phone: [facility] 12-03-2023 14:08-0500 Respiratory rate 16 /min Dr. Timmy Floyd Work Phone: [facility] 12-03-2023 14:08-0500 SaO2% (BldA) [Mass fraction] 95 % Dr. Timmy Floyd Work Phone: [facility] 12-03-2023 14:08-0500 Systolic blood pressure 120 mm[Hg] Dr. Timmy Floyd Work Phone: [facility] 08-28-2023 10:16-0500 Body mass index (BMI) [Ratio] 30.7 kg/m2 Dr. Timmy Floyd Work Phone: [facility] 08-28-2023 10:16-0500 Body temperature 97 [degF] Dr. Timmy Floyd Work Phone: [facility] 08-28-2023 10:16-0500 Body weight 94.[address] Timmy Floyd Work Phone: [facility] 08-28-2023 10:16-0500 Diastolic blood pressure 76 mm[Hg] Dr. Timmy Floyd Work Phone: [facility] 08-28-2023 10:16-0500 Heart rate 83 /min Dr. Timmy Floyd Work Phone: [facility] 08-28-2023 10:16-0500 Respiratory rate 16 /min Dr. Timmy Floyd Work Phone: [facility] 08-28-2023 10:16-0500 SaO2% (BldA) [Mass fraction] 96 % Dr. Timmy Floyd Work Phone: [facility] 08-28-2023 10:16-0500 Systolic blood pressure 122 mm[Hg] Dr. Timmy Floyd Work Phone: [facility] 05-11-2023 07:51-0400 Body height 175.[address] Adam Alex Work Phone: [facility] 05-11-2023 07:51-0400 Body mass index (BMI) [Ratio] 30 kg/m2 Dr. Adam Alex Work Phone: [facility] 05-11-2023 07:51-0400 Body temperature 97.3 [degF] Dr. Adam Alex Work Phone: [facility] 05-11-2023 07:51-0400 Body weight 92.[address] Adam Alex Work Phone: [facility] 05-11-2023 07:51-0400 Diastolic blood pressure 72 mm[Hg] Dr. Adam Alex Work Phone: [facility] 05-11-2023 07:51-0400 Heart rate 75 /min Dr. Adam Alex Work Phone: [facility] 05-11-2023 07:51-0400 Respiratory rate 18 /min Dr. Adam Alex Work Phone: [facility] 05-11-2023 07:51-0400 SaO2% (BldA) [Mass fraction] 95 % Dr. Adam Alex Work Phone: [facility] 05-11-2023 07:51-0400 Systolic blood pressure 124 mm[Hg] Dr. Adam Alex Work Phone: 4(847)896-909057 [place] [address] 04-24-2023 21:33-0400 Body height 175.[address] Adam Alex Work Phone: 6(981)785-755857 [place] [address] 04-24-2023 21:33-0400 Body mass index (BMI) [Ratio] 29.5 kg/m2 Dr. Adam Alex Work Phone: 5(418)767-723757 [place] [address] 04-24-2023 21:33-0400 Body temperature 97.6 [degF] Dr. Adam Alex Work Phone: 3(358)044-410694 [place] [address] 04-24-2023 21:33-0400 Body weight 90.[address] Adam Alex Work Phone: 4(887)490-321494 [place] [address] 04-24-2023 21:33-0400 Diastolic blood pressure 86 mm[Hg] Dr. Adam Alex Work Phone: 1(059)428-812594 [place] [address] 04-24-2023 21:33-0400 Heart rate 96 /min Dr. Adam Alex Work Phone: 4(749)045-159394 [place] [address] 04-24-2023 21:33-0400 Respiratory rate 18 /min Dr. Adam Alex Work Phone: 5(877)442-521994 [place] [address] 04-24-2023 21:33-0400 SaO2% (BldA) [Mass fraction] 95 % Dr. Adam Alex Work Phone: 2(438)264-651894 [place] [address] 04-24-2023 21:33-0400 Systolic blood pressure 155 mm[Hg] Dr. Adam Alex Work Phone: 4(768)311-665319 [address] 02-03-2023 06:45-0400 Body mass index (BMI) [Ratio] 30.1 kg/m2 Dr. Adam Alex Work Phone: 5(466)898-272157 [place] [address] 02-03-2023 06:45-0400 Body temperature 97.1 [degF] Dr. Adam Alex Work Phone: 8(573)368-627657 [place] [address] 02-03-2023 06:45-0400 Body weight 92.[address] Adam Alex Work Phone: 8(735)418-993557 [place] [address] 02-03-2023 06:45-0400 Diastolic blood pressure 68 mm[Hg] Dr. Adam Alex Work Phone: [facility] 02-03-2023 06:45-0400 Heart rate 77 /min Dr. Adam Alex Work Phone: [facility] 02-03-2023 06:45-0400 Respiratory rate 18 /min Dr. Adam Alex Work Phone: [facility] 02-03-2023 06:45-0400 SaO2% (BldA) [Mass fraction] 94 % Dr. Adam Alex Work Phone: [facility] 02-03-2023 06:45-0400 Systolic blood pressure 116 mm[Hg] Dr. Adam Alex Work Phone: [facility] 05-15-2022 08:15-0400 Body height 175.[address] Adam Alex Work Phone: [facility] Work Phone: 05-15-2022 08:15-0400 Body mass index (BMI) [Ratio] 28 kg/m2 Dr. Adam Alex Work Phone: [facility] Work Phone: 05-15-2022 08:15-0400 Body temperature 97.4 [degF] Dr. Adam Alex Work Phone: [facility] Work Phone: 05-15-2022 08:15-0400 Body weight 86.[address] Adam Alex Work Phone: [facility] Work Phone: 05-15-2022 08:15-0400 Diastolic blood pressure 71 mm[Hg] Dr. Adam Alex Work Phone: [facility] Work Phone: 05-15-2022 08:15-0400 Heart rate 89 /min Dr. Adam Alex Work Phone: [facility] Work Phone: 05-15-2022 08:15-0400 Respiratory rate 16 /min Dr. Adam Alex Work Phone: [facility] Work Phone: 05-15-2022 08:15-0400 SaO2% (BldA) [Mass fraction] 96 % Dr. Adam Alex Work Phone: [facility] Work Phone: 05-15-2022 08:15-0400 Systolic blood pressure 126 mm[Hg] Dr. Adam Alex Work Phone: [facility] Work Phone: 04-03-2022 10:34-0400 Body height 175.[address] Adam Alex Work Phone: [facility] Work Phone: 04-03-2022 10:34-0400 Body mass index (BMI) [Ratio] 30.4 kg/m2 Dr. Adam Alex Work Phone: [facility] Work Phone: 04-03-2022 10:34-0400 Body weight 93.[address] Adam Alex Work Phone: [facility] Work Phone: 04-03-2022 10:34-0400 Diastolic blood pressure 61 mm[Hg] Dr. Adam Alex Work Phone: [facility] Work Phone: 04-03-2022 10:34-0400 Heart rate 72 /min Dr. Adam Alex Work Phone: [facility] Work Phone: 04-03-2022 10:34-0400 Respiratory rate 16 /min Dr. Adam Alex Work Phone: [facility] Work Phone: 04-03-2022 10:34-0400 Systolic blood pressure 115 mm[Hg] Dr. Adam Alex Work Phone: [facility] Work Phone: 03-31-2022 13:46-0400 Body temperature 98.1 [degF] Dr. Adam Alex Work Phone: [facility] Work Phone: 03-31-2022 13:46-0400 Diastolic blood pressure 60 mm[Hg] Dr. Adam Alex Work Phone: [facility] Work Phone: 03-31-2022 13:46-0400 Heart rate 63 /min Dr. Adam Alex Work Phone: [facility] Work Phone: 03-31-2022 13:46-0400 Respiratory rate 18 /min Dr. Adam Alex Work Phone: [facility] Work Phone: 03-31-2022 13:46-0400 SaO2% (BldA) [Mass fraction] 98 % Dr. Aadm Alex Work Phone: [facility] Work Phone: 03-31-2022 13:46-0400 Systolic blood pressure 126 mm[Hg] Dr. Adam Alex Work Phone: [facility] Work Phone: 03-31-2022 00:26-0400 Body height 175.[address] Adam Alex Work Phone: [facility] Work Phone: 03-31-2022 00:26-0400 Body mass index (BMI) [Ratio] 30.7 kg/m2 Dr. Adam Alex Work Phone: [facility] Work Phone: 03-31-2022 00:26-0400 Body weight 94.[address] Adam Alex Work Phone: [facility] Work Phone: 03-26-2022 08:05-0400 Body mass index (BMI) [Ratio] 30.1 kg/m2 Dr. Adam Alex Work Phone: [facility] Work Phone: 03-26-2022 08:05-0400 Body weight 92.[address] Adam Alex Work Phone: [facility] Work Phone: 03-26-2022 08:05-0400 Diastolic blood pressure 71 mm[Hg] Dr. Adam Alex Work Phone: [facility] Work Phone: 03-26-2022 08:05-0400 Heart rate 74 /min Dr. Adam Alex Work Phone: [facility] Work Phone: 03-26-2022 08:05-0400 SaO2% (BldA) [Mass fraction] 95 % Dr. Adam Alex Work Phone: [facility] Work Phone: 03-26-2022 08:05-0400 Systolic blood pressure 117 mm[Hg] Dr. Adam Alex Work Phone: [facility] Work Phone: 02-26-2022 07:50-0400 Body temperature 97.1 [degF] Dr. Adam Alxe Work Phone: [facility] Work Phone: 02-26-2022 07:50-0400 Diastolic blood pressure 63 mm[Hg] Dr. Adam Alex Work Phone: [facility] Work Phone: 02-26-2022 07:50-0400 Heart rate 67 /min Dr. Adam Alex Work Phone: [facility] Work Phone: 02-26-2022 07:50-0400 Respiratory rate 14 /min Dr. Adam Alex Work Phone: [facility] Work Phone: 02-26-2022 07:50-0400 SaO2% (BldA) [Mass fraction] 95 % Dr. Adam Alex Work Phone: [facility] Work Phone: 02-26-2022 07:50-0400 Systolic blood pressure 100 mm[Hg] Dr. Adam Alex Work Phone: [facility] Work Phone: 02-26-2022 06:43-0400 Body height 175.[address] Adam Alex Work Phone: [facility] Work Phone: 02-26-2022 06:43-0400 Body mass index (BMI) [Ratio] 30.2 kg/m2 Dr. Adam Alex Work Phone: [facility] Work Phone: 02-26-2022 06:43-0400 Body weight 92.[address] Adam Alex Work Phone: [facility] Work Phone: 02-20-2022 14:18-0400 Body mass index (BMI) [Ratio] 30.2 kg/m2 Dr. Adam Alex Work Phone: [facility] Work Phone: 02-20-2022 14:18-0400 Body temperature 97.7 [degF] Dr. Adam Alex Work Phone: [facility] Work Phone: 02-20-2022 14:18-0400 Body weight 92.[address] Adam Alex Work Phone: [facility] Work Phone: 02-20-2022 14:18-0400 Diastolic blood pressure 74 mm[Hg] Dr. Adam Alex Work Phone: [facility] Work Phone: 02-20-2022 14:18-0400 Heart rate 77 /min Dr. Adam Alex Work Phone: [facility] Work Phone: 02-20-2022 14:18-0400 Respiratory rate 17 /min Dr. Adam Alex Work Phone: [facility] Work Phone: 02-20-2022 14:18-0400 SaO2% (BldA) [Mass fraction] 95 % Dr. Adam Alex Work Phone: [facility] Work Phone: 02-20-2022 14:18-0400 Systolic blood pressure 116 mm[Hg] Dr. Adam Alex Work Phone: [facility] Work Phone: 02-20-2022 14:18-0400 Body mass index (BMI) [Ratio] 30.2 kg/m2 Dr. Adam Alex Work Phone: [facility] Work Phone: 02-20-2022 14:18-0400 Body temperature 97.7 [degF] Dr. Adam Alex Work Phone: [facility] Work Phone: 02-20-2022 14:18-0400 Body weight 92.[address] Adam Alex Work Phone: [facility] Work Phone: 02-20-2022 14:18-0400 Diastolic blood pressure 74 mm[Hg] Dr. Adam Alex Work Phone: [facility] Work Phone: 02-20-2022 14:18-0400 Heart rate 77 /min Dr. Adam Alex Work Phone: [facility] Work Phone: 02-20-2022 14:18-0400 Respiratory rate 17 /min Dr. Adam Alex Work Phone: [facility] Work Phone: 02-20-2022 14:18-0400 SaO2% (BldA) [Mass fraction] 95 % Dr. Adam Alex Work Phone: [facility] Work Phone: 02-20-2022 14:18-0400 Systolic blood pressure 116 mm[Hg] Dr. Adam Alex Work Phone: [facility] Work Phone: 02-06-2022 13:43-0400 Body height 175.[address] Adam Alex Work Phone: [facility] Work Phone: 02-06-2022 13:43-0400 Body weight 90.[address] Adam Alex Work Phone: [facility] Work Phone: 02-06-2022 13:43-0400 Heart rate 82 /min Dr. Adam Alex Work Phone: [facility] Work Phone: 02-06-2022 13:43-0400 SaO2% (BldA) [Mass fraction] 98 % Dr. Adam Alex Work Phone: [facility] Work Phone: 01-20-2022 14:02-0400 Body mass index (BMI) [Ratio] 29.5 kg/m2 Dr. Adam Alex Work Phone: [facility] Work Phone: 01-20-2022 14:02-0400 Body temperature 98.9 [degF] Dr. Adam Alex Work Phone: [facility] Work Phone: 01-20-2022 14:02-0400 Body weight 90.[address] Adam Alex Work Phone: [facility] Work Phone: 01-20-2022 14:02-0400 Diastolic blood pressure 70 mm[Hg] Dr. Adam Alex Work Phone: [facility] Work Phone: 01-20-2022 14:02-0400 Heart rate 88 /min Dr. Adam Alex Work Phone: [facility] Work Phone: 01-20-2022 14:02-0400 Respiratory rate 17 /min Dr. Adam Alex Work Phone: [facility] Work Phone: 01-20-2022 14:02-0400 SaO2% (BldA) [Mass fraction] 95 % Dr. Adam Alex Work Phone: [facility] Work Phone: 01-20-2022 14:02-0400 Systolic blood pressure 106 mm[Hg] Dr. Adam Alex Work Phone: [facility] Work Phone: 01-20-2022 14:02-0400 Body height 175.[address] Adam Alex Work Phone: [facility] Work Phone: 01-20-2022 14:02-0400 Body mass index (BMI) [Ratio] 29.5 kg/m2 Dr. Adam Alex Work Phone: [facility] Work Phone: 01-20-2022 14:02-0400 Body temperature 98.9 [degF] Dr. Adam Alex Work Phone: [facility] Work Phone: 01-20-2022 14:02-0400 Body weight 90.[address] Adam Alex Work Phone: [facility] Work Phone: 01-20-2022 14:02-0400 Diastolic blood pressure 70 mm[Hg] Dr. Adam Alex Work Phone: [facility] Work Phone: 01-20-2022 14:02-0400 Heart rate 88 /min Dr. Adam Alex Work Phone: [facility] Work Phone: 01-20-2022 14:02-0400 Respiratory rate 17 /min Dr. Adam Alex Work Phone: [facility] Work Phone: 01-20-2022 14:02-0400 SaO2% (BldA) [Mass fraction] 95 % Dr. Adam Alex Work Phone: [facility] Work Phone: 01-20-2022 14:02-0400 Systolic blood pressure 106 mm[Hg] Dr. Adam Alex Work Phone: [facility] Work Phone: 01-16-2022 07:03-0400 Body height 175.[address] Adam Alex Work Phone: [facility] Work Phone: 01-16-2022 07:03-0400 Body weight 90.[address] Adam Alex Work Phone: [facility] Work Phone: 01-15-2022 08:16-0400 Body mass index (BMI) [Ratio] 29.5 kg/m2 Dr. Adam Alex Work Phone: [facility] Work Phone: 01-02-2022 11:37-0400 Body mass index (BMI) [Ratio] 29.5 kg/m2 Dr. Adam Alex Work Phone: [facility] Work Phone: 01-02-2022 11:37-0400 Body weight 90.[address] Adam Alex Work Phone: [facility] Work Phone: 01-02-2022 11:37-0400 Diastolic blood pressure 62 mm[Hg] Dr. Adam Alex Work Phone: [facility] Work Phone: 01-02-2022 11:37-0400 Heart rate 82 /min Dr. Adam Alex Work Phone: [facility] Work Phone: 01-02-2022 11:37-0400 Respiratory rate 18 /min Dr. Adam Alex Work Phone: [facility] Work Phone: 01-02-2022 11:37-0400 Systolic blood pressure 120 mm[Hg] Dr. Adam Alex Work Phone: [facility] Work Phone: 01-02-2022 11:37-0400 Body mass index (BMI) [Ratio] 29.5 kg/m2 Dr. Adam Alex Work Phone: [facility] Work Phone: 01-02-2022 11:37-0400 Body weight 90.[address] Adam Alex Work Phone: [facility] Work Phone: 01-02-2022 11:37-0400 Diastolic blood pressure 62 mm[Hg] Dr. Adam Alex Work Phone: [facility] Work Phone: 01-02-2022 11:37-0400 Heart rate 82 /min Dr. Adam Alex Work Phone: [facility] Work Phone: 01-02-2022 11:37-0400 Respiratory rate 18 /min Dr. Adam Alex Work Phone: [facility] Work Phone: 01-02-2022 11:37-0400 Systolic blood pressure 120 mm[Hg] Dr. Adam Alex Work Phone: [facility] Work Phone: 10-02-2021 18:37-0500 Diastolic blood pressure 72 mm[Hg] Dr. Adam Alex Work Phone: [facility] Work Phone: 10-02-2021 18:37-0500 Heart rate 93 /min Dr. Adam Alex Work Phone: [facility] Work Phone: 10-02-2021 18:37-0500 Respiratory rate 20 /min Dr. Adam Alex Work Phone: [facility] Work Phone: 10-02-2021 18:37-0500 SaO2% (BldA) [Mass fraction] 95 % Dr. Adam Alex Work Phone: [facility] Work Phone: 10-02-2021 18:37-0500 Systolic blood pressure 119 mm[Hg] Dr. Adam Alex Work Phone: [facility] Work Phone: 10-02-2021 13:52-0500 Body mass index (BMI) [Ratio] 29.5 kg/m2 Dr. Adam Alex Work Phone: [facility] Work Phone: 10-02-2021 13:52-0500 Body temperature 98.5 [degF] Dr. Adam Alex Work Phone: [facility] Work Phone: 10-02-2021 13:52-0500 Body weight 90.[address] Adam Alex Work Phone: [facility] Work Phone: Encounters Encounter Date Encounter Type Care Provider Facility Start: 03-13-2025 End: 03-13-2025 Patient encounter procedure Luna Dasilva [employer] -[facility] Work Phone: Start: 03-13-2025 End: 03-13-[address] Timmy Floyd MD Work Phone: [facility] Work Phone: Start: 02-09-2025 End: 02-09-[address] Timmy Floyd MD Work Phone: [facility] Work Phone: Start: 02-09-2025 End: 02-09-[address] Miles Armendariz MD -Radiology, [facility] Work Phone: Start: 02-09-2025 End: 02-09-2025 [facility]ulatory [facility] Start: 01-09-2025 End: 01-09-[address] Miles Armendariz MD -[facility] Work Phone: Start: 01-09-2025 End: 01-09-2025 ambulatory [facility] Facility:[facility] Start: 01-02-2025 End: 01-02-[address] Timmy Floyd MD -[facility] Work Phone: Start: 01-02-2025 End: 01-02-2025 [facility]ulatory [facility] Start: 12-29-2024 End: 12-29-[address] Timmy Floyd MD Work Phone: [facility] Work Phone: Start: 12-29-2024 End: 12-29-2024 Patient encounter procedure Sean ERNST -[facility] Work Phone: Start: 12-29-2024 End: 12-29-2024 ambulatory [facility] Facility:[facility] Start: 12-21-2024 End: 12-21-2024 Patient encounter procedure Sean ERNST -[facility] Work Phone: Start: 12-21-2024 End: 12-21-2024 ambulatory [facility] Facility:[facility] Start: 12-16-2024 End: 12-16-[address] Timmy Floyd MD Work Phone: [facility] Work Phone: Start: 12-16-2024 End: 12-16-2024 Patient encounter procedure Robert Flores DO -Laboratory Work Phone: Start: 12-16-2024 End: 12-16-2024 Patient encounter procedure Robert Flores DO -[facility] Work Phone: Start: 12-16-2024 End: 12-16-2024 ambulatory Efewongbe Oleghe Facility:[facility] Start: 12-16-2024 End: 12-16-2024 ambulatory Efewongbe Oleghe Facility:[facility] Start: 12-01-2024 End: 12-01-[address] Kelby Seth MD -[facility] Start: 12-01-2024 End: 12-01-2024 ambulatory Efewongbe Oleghe Facility:[facility] Start: 11-21-2024 End: 11-21-2024 Patient encounter procedure Quirino ERNST -[facility] Work Phone: Start: 11-21-2024 End: 11-21-2024 ambulatory Efewongbe Oleghe Facility:[facility] Start: 11-11-2024 End: 11-11-2024 Patient encounter procedure Sarita ERNST -[facility] Work Phone: Start: 11-11-2024 End: 11-11-2024 ambulatory Efewongbe Oleghe Facility:[facility] Start: 08-18-2024 ambulatory Efewongbe Oleghe Facili ty:[facility] Start: 08-18-2024 End: 08-18-2024 ambulatory Efewongbe Oleghe Facility:[facility] Start: 08-09-2024 End: 08-09-2024 ambulatory Efewongbe Oleghe Facility:[facility] Start: 07-13-2024 End: 07-13-2024 ambulatory Efewongbe Oleghe Facility:[facility] Start: 06-29-2024 End: 06-29-2024 ambulatory Efewongbe Oleghe Facility:[facility] Start: 06-28-2024 End: 06-29-2024 ambulatory Sarita ERNST Facility:[facility] Start: 06-28-2024 End: 06-28-2024 ambulatory Efewongbe Oleghe Facility:[facility] Start: 06-17-2024 End: 06-17-2024 ambulatory Efewongbe Oleghe Facility:[facility] Start: 06-10-2024 End: 06-10-2024 ambulatory Nadyarussellhuanrey Soloalfonso Facility:[facility] Start: 06-10-2024 End: 06-10-2024 ambulatory Timmy Floyd Facility:[facility] Start: 12-03-2023 End: 12-03-[address] Timmy Floyd Work Phone: [facility] Work Phone: Start: 12-03-2023 End: 12-03-[address] Timmy Floyd Work Phone: [facility] Start: 12-03-2023 End: 12-03-[address] Timmy Floyd Work Phone: [facility] Work Phone: Start: 11-03-2023 End: 11-03-[address] Timmy Floyd Work Phone: [facility] Work Phone: Start: 08-28-2023 End: 08-28-[address] Timmy Floyd Work Phone: [facility] Work Phone: Start: 05-11-[address] Adam Alex Work Phone: [facility] Start: 05-11-2023 End: 05-11-[address] Adam Alex Work Phone: [facility] Work Phone: Start: 05-11-2023 End: 05-11-2023 Encounter for general adult medical examination without abnormal findings Dr. Adam Alex Work Phone: [facility] Start: 05-11-2023 End: 05-11-[address] Adam Alex Work Phone: [facility] Work Phone: Start: 04-24-2023 End: 04-24-2023 Emergency department patient visit Dr. Adam Alex Work Phone: [facility]-Emergency Department Work Phone: Start: 02-03-2023 End: 02-03-[address] Adam Alex Work Phone: [facility]-P[facility] Work Phone: Start: 05-15-2022 End: 05-15-[address] [facility] Start: 04-03-2022 End: 04-03-[address] Adam Alex Work Phone: [facility] Start: 04-01-2022 End: 04-01-[address] Adam Alex Work Phone: [facility]-Laboratory, Phy Office 3rd Flr Start: 03-31-2022 Non-patient / Non-visit Dr. Adam Alex Work Phone: [facility] Start: 03-30-2022 Non-patient / Non-visit Dr. Adam Alex Work Phone: [facility] Start: 03-30-2022 End: 03-31-2022 Evaluation and management of inpatient Dr. Adam [facility] Start: 03-26-2022 End: 03-26-[address] Adam Alex Work Phone: [facility] Start: 02-26-2022 Non-patient / Non-visit Dr. Adam Alex Work Phone: [facility] Start: 02-26-2022 End: 02-26-2022 Admission to same day surgery center Dr. Adam Alex Work Phone: [facility]-Endoscopy Start: 02-20-2022 End: 02-20-[address] [facility] Start: 02-07-2022 Non-patient / Non-visit Dr. Adam Alex Work Phone: [facility] Start: 02-06-2022 End: 02-06-[address] [facility] Start: 01-30-2022 Non-patient / Non-visit Dr. Adam Alex Work Phone: [facility] Start: 01-30-2022 End: 01-30-[address] [facility] Start: 01-24-2022 Non-patient / Non-visit Dr. Adam Alex Work Phone: [facility] Start: 01-24-2022 End: 01-24-[address] Adam Alex Work Phone: [facility]-Cardiovascular Services Start: 01-20-2022 End: 01-20-[address] dAam Alex Work Phone: [facility]-Laboratory Start: 01-16-2022 End: 01-16-2022 Admission to same day surgery center Dr. Adam Alex Work Phone: [facility]-Garment Cutter/Special Procedures Start: 01-11-2022 Non-patient / Non-visit Dr. Adam Alex Work Phone: [facility] Start: 01-10-2022 End: 01-10-[address] [facility] Start: 01-10-2022 Non-patient / Non-visit Dr. Adam Alex Work Phone: [facility] Start: 01-02-2022 End: 01-02-[address] Adam Alex Work Phone: [facility]-Laboratory Start: 01-02-2022 End: 01-02-[address] Adam Alex Work Phone: [facility] Start: 12-18-2021 End: 12-18-[address] Adam Alex Work Phone: [facility] Gastroenter[facility] Start: 10-02-2021 End: 10-02-2021 Emergency department patient [facility]. Adam [facility] Start: 09-23-[address] [facility] 3[facility] Flr Start: 09-18-2021 End: 09-18-[address] Adam Alex Work Phone: [facility] G[facility] Procedures Date Procedure Procedure Detail Performing Clinician Start: 02-09-2025 Complete x-ray skeletal survey Dr. Nomi Floyd MD Work Phone: Start: 12-29-2024 Dual energy X-ray absorptiometry Dr. Chevy Floyd MD Work Phone: Start: 12-16-2024 Albumin/Globulin ratio Dr. Timmy Floyd MD Work Phone: Start: 12-16-2024 Endomysial antibody IgA level Dr. Gal Floyd MD Work Phone: Start: 12-16-[address] Nomi Floyd MD Work Phone: Start: 12-16-[address] Mary Lou Floyd MD Work Phone: Start: 12-01-2024 X-ray of chest, PA and lateral views Dr. Timmy Floyd MD Work Phone: Start: 03-30-2022 Plain chest X-ray Dr. Adam Alex Work Phone: Start: 03-30-2022 CT of head without contrast Dr. Adam Alex Work Phone: Start: 02-26-[address] Adam Alex Work Phone: Start: 10-02-2021 CT angiography of chest with contrast Dr. Adam Alex Work Phone: Start: 10-02-2021 Plain chest X-ray Dr. Adam Alex Work Phone: Start: 10-02-2021 SARS-CoV-2 Antigen (Rapid) Dr. Adam Alex Work Phone: Plan of Treatment Date Care Activity Detail Author Start: 05-15-2022 [facility] Work Phone: Start: 03-31-2022 Patient discharge [facility] Work Phone: Start: 03-31-2022 Following clinical pathway protocol [facility] Work Phone: Start: 03-31-2022 Assessment of risk of venous thromboembolism [facility] Work Phone: Start: 03-31-2022 Insertion of catheter into peripheral vein [facility] Work Phone: Start: 03-31-2022 Providing care according to standard [facility] Work Phone: Start: 03-31-2022 Provision of activity privileges [facility] Work Phone: Start: 03-31-2022 Referral to service [facility] Work Phone: Start: 03-31-2022 End: 03-31-2022 [facility] Work Phone: Start: 03-30-2022 Admission procedure [facility] Work Phone: Start: 02-26-2022 Egd insert guide wire dilator passage esophagus EGD GUIDE WIRE INSERTION [facility] Work Phone: Start: 02-26-2022 Egd transoral biopsy single/multiple EGD BIOPSY SINGLE/MULTIPLE [facility] Work Phone: Start: 02-26-2022 Patient discharge [facility] Work Phone: Start: 09-18-2021 Patient referral [facility] Work Phone: Alternaria alternata IgE Ab [Units/volume] in Serum [facility] Work Phone: Lao Cockroach I gE Ab [Units/volume] in Serum [facility] Work Phone: Lao house dust mite IgE Ab [Units/volume] in Serum [facility] Work Phone: Aspergillus fumigatus [facility] Work Phone: Basic metabolic 2008 panel with ionized calcium - Serum or Plasma [facility] Bermuda grass IgE Ab [Units/volume] in Serum [facility] Work Phone: Box elder [facility] Work Phone: C reactive protein [Mass/volume] in Serum or Plasma [facility] Cat dander [facility] Work Phone: Catheterization of l eft heart [facility] Work Phone: CBC W Auto Different ial panel - Blood [facility] Cladosporium herbaru m IgE Ab [Units/volume] in Serum [facility] Work Phone: Cobalamin (Vitamin B 12) [Mass/volume] in Serum or Plasma [facility] Common Ragweed IgE A b [Units/volume] in Serum [facility] Work Phone: Complement C3 [Mass/ volume] in Serum or Plasma [facility] Complement C4 [Mass/ volume] in Serum or Plasma [facility] Complement total hem olytic CH50 [Units/volume] in Serum or Plasma [facility] Comprehensive metabo lic 2000 panel - Serum or Plasma [facility] [place] [facility] Work Phone: Dog epithelium IgE A b [Units/volume] in Serum [facility] Work Phone: Erythrocyte sediment ation rate [facility] house dust mite IgE Ab [Units/volume] in Serum [facility] Work Phone: Immunoglobulin E measurement [facility] Work Phone: Immunoglobulin measurement [facility] Lactate dehydrogenas e measurement [facility] Mouse urine proteins [facility] Work Phone: Patient Education [facility] Work Phone: Patient referral [facility] Work Phone: Pecan or [place] Nut IgE Ab [Units/volume] in Serum [facility] Work Phone: Rough Pigweed IgE Ab [Units/volume] in Serum [facility] Work Phone: Serum immunofixation [facility] Sheep Brooker IgE Ab [Units/volume] in Serum [facility] Work Phone: Silver Birch IgE Ab [Units/volume] in Serum [facility] Work Phone: Sebastián IgE Ab [Units/volume] in Serum [facility] Work Phone: Tree pollen [facility] Work Phone: Urate [Mass/volume] in Serum or Plasma [facility] Vitamin D, 25-hydrox y measurement [facility] [place] [facility] Work Phone: White Mandeep IgE Ab [Units/volume] in Serum [facility] Work Phone: White Elm IgE Ab [Units/volume] in Serum [facility] Work Phone: White mulberry IgE A b [Units/volume] in Serum [facility] Work Phone: [facility] Immunizations Immunization Date Immunization Notes Care Provider Lupe garza 10-08-2021 Covid (Moderna) Dr. Adam Alex Work Phone: [facility] 02-09-2021 Covid (Moderna) Dr. Adam Alex Work Phone: [facility] 01-10-2021 Covid (Moderna) Dr. Adam Alex Work Phone: [facility] 07-14-[address] Adam Alex Work Phone: [facility] Payers Date Payer Category Payer Self-pay [id number] 2023 Medicare [id number] 2015 Unknown [id number] Unknown [facility] [id number] Unknown [id number] Unknown [id number] Unknown [id number] Unknown [id number] [id number] Unknown [id number] [id number] Unknown [id number] [id number]2 Unknown [id number] [id number]2 Unknown [id number] 2.16.840.1.980011.3.579.2.462 Unknown [id number] 2.840.1.225424.3.579.2.462 Unknown [id number] 2.16.840.1.857695.3.579.2.462 Unknown [id number] 2.16.840.1.663572.3.579.2.462 Unknown [id number] 2.16.840.1.709054.3.579.2.462 Unknown [id number] 2.16.840.1.871860.3.579.2.462 Unknown [id number] 2.16.840.1.337176.3.579.2.462 Unknown [id number] 2.16.840.1.265014.3.579.2.462 Unknown [id number] 2.16.840.1.340682.3.579.2.462 Unknown [id number] 2.16.840.1.922703.3.579.2.462 Unknown [id number] 2.16840.1.675172.3.579.2.462 Unknown [id number] 2.16840.1.206798.3.579.2.462 Unknown [id number] 2.16.840.1.460128.3.579.2.462 Unknown [id number] 2.16.840.1.785951.3.579.2.462 Unknown [id number] 2.16.840.1.879171.3.579.2.462 Unknown [id number] 2.16840.1.019113.3.579.2.462 Unknown [id number] Social History Date Type Detail Facility Start: 01-15-2022 End: 12-03-2023 Tobacco smoking status NHIS Unknown if ever smoked [facility] Start: 1950 Sex Assigned At Male W [facility] Start: 12-01-2024 Tobacco smoking stat us IAIS Never smoked tobacco (finding) [facility] Start: 12-29-2024 End: 01-06-2025 Sex Male (finding) [facility] Goals Date Patient Goal Desired Activity /State Functional Status Date Assessment Result Facility 03-31-2022 Functional status Activity Abili ty Unable to Assess [facility] Work Phone: Mental Status Date Assessment Result Facility 03-31-2022 Cognitive function Voice/Name [facility] Work Phone: 02-26-2022 Cognitive function Voice/Name [facility] Work Phone: 10-02-2021 Cognitive function Level Of Cons ciousness Awake;Alert;Appropriate [facility] Work Phone: Clinical Notes 11-11-2024 to 02-12-2025 Note Date & Type Note Facility 02-12-2025 Radiology Diagnostic study note [facility] Imaging Services [address] [place], [place] [id number] Bone Survey Comp(Axial&Append) MR#: [id number] Acct: [id number] Name: JOSE SANDOVAL Rep #: [id number] : 1950 M 74 From: López Strong MD PCP: Dr. Timmy Floyd MD Status: R EG CLI Study:Bone Survey Comp(Axial&Append) Date of Exam: 02/09/25 Exam# [id number] Ordering Dr: To Armendariz MD PROCEDURE: BONE SURVEY COMP(AXIAL APPEND) 02/09/2025 REASON FOR EXAM: MGUS FINDINGS: Skull: No lytic or blastic bone lesion. C-T-L Spine: No evidence of compression fracture. No lytic or blastic bone lesion. Degenerative disc disease. Ribs: Unremarkable. AP Pelvis: Unremarkable. AP Humeri: No lytic or blastic bone lesion. AP Femurs: No lytic or blastic bone lesion. RAD/Bone Survey Comp(Axial&Append) IMPRESSION: NEGATIVE BONE SURVEY. Reading Location: [id number] CC: Dr. Timmy Floyd MD; Dr. Miles Armendariz MD ~ Architectural Draftsperson: Signed [facility] 11-21-2024 Evaluation note Diagnosis Onset Date Resolution Acute bronchitis, unspecified acute November 21, 2 025 3:25pm Acute bronchitis, unspecified acute December 01, 025 1:23pm Abdominal pain acute December 16, 2024 9:56am Anemia acute December 16 9:56am GERD (gastroesophageal reflux disease) chronic December 16, 2024 9:56am Bronchitis acute December 21 3:24pm Osteopenia determined by x-ray December 21, 2024 3:24pm Gammopathy, monoclonal chronic [facility] 2024 3:24pm Osteopenia determined by x-ray acute January 02, 2025 3:04pm Essential hypertension chronic [facility] 2024 3:04pm Mixed hyperlipidemia chronic [facility] 2024 3:04pm Type 2 diabetes mellitus chronic January 02, 2025 3:04pm Gammopathy, monoclonal chronic [facility] 2024 2:52pm [facility] Work Phone: 1(290) 241-593201-31-2025 Evaluation note* Diagnosis Onset Date Resolution Status Admit Date Abnormal stress test acute [facility] 2024 9:46am Essential hypertension chronic Ja nuary 2024 9:46am Mixed hyperlipidemia chronic [facility] 2024 9:46am Acute bronchitis, unspecified acute November 21, 2024 3:25pm Acute bronchitis, unspecified acute December 01, 2024 1:23pm Abdominal pain acute December 16, 2024 9:56am Anemia acute December 16 9:56am GERD (gastroesophageal reflu x disease) chronic December 16, 2024 9:56am Bronchitis acute December 21 3:24pm Gammopathy, monoclonal acute [facility] 2024 3:24pm Osteopenia determined by x-ray acute December 21, 2024 3:24pm [facility] Work Phone: 1(124) 954-940401-31-2025 Evaluation note* Diagnosis Onset Date Resolution Status Admit Date Abnormal stress test acute [facility] vik 2024 9:46am Essential hypertension chronic Ja nuary 2024 9:46am Mixed hyperlipidemia chronic [facility] 2024 9:46am Acute bronchitis, unspecified acute November 21, 2024 3:25pm Acute bronchitis, unspecified acute December 01, 2024 1:23pm Abdominal pain acute December 16, 2024 9:56am Anemia acute December 16 9:56am GERD (gastroesophageal reflu x disease) chronic December 16, 2024 9:56am Bronchitis acute December 21 3:24pm Gammopathy, monoclonal acute [facility] 2024 3:24pm Osteopenia determined by x-ray acute December 21, 2024 3:24pm Osteopenia determined by x-ray acute January 02, 2025 3:04pm Essential hypertension chronic [facility] 2024 3:04pm Mixed hyperlipidemia chronic Enrique h 2024 3:04pm Type 2 diabetes mellitus chronic January 02, 2025 3:04pm [facility] Work Phone: 1(276) 301-749901-31-2025 Evaluation note* Diagnosis Onset Date Resolution Status Admit Date Abnormal stress test acute Garrison vik 2024 9:46am Essential hypertension chronic Ja nuary 2024 9:46am Mixed hyperlipidemia chronic [facility] vik 2024 9:46am Acute bronchitis, unspecified acute November 21, 2024 3:25pm Acute bronchitis, unspecified acute December 01, 2024 1:23pm Abdominal pain acute December 16, 2024 9:56am Anemia acute December 16 9:56am GERD (gastroesophageal reflu x disease) chronic December 16, 2024 9:56am Bronchitis acute December 21 3:24pm Osteopenia determined by x-ray acute December 21, 2024 3:24pm Gammopathy, monoclonal chronic [facility] 2024 3:24pm Osteopenia determined by x-ray acute January 02, 2025 3:04pm Essential hypertension chronic [facility] 2024 3:04pm Mixed hyperlipidemia chronic Enrique h 2024 3:04pm Type 2 diabetes mellitus chronic January 02, 2025 3:04pm Gammopathy, monoclonal chronic [facility] 2024 2:52pm [facility] Work Phone: Evaluation note* Diagnosis Onset Date Resolution Status Constipated acute Dizziness acute Leg cramps acute Constipated acute Dysphagia acute Segmental colitis associated with diverticulosis acute Angina pectoris acute Dizziness acute Essential hypertension acute Mixed hyperlipidemia acute Palpitations acute [facility] Work Phone: Evaluation note* Diagnosis Onset Date Resolution Status Constipated acute Dysphagia acute Segmental colitis associated with diverticulosis acute Angina pectoris acute Dizziness acute Essential hypertension acute Mixed hyperlipidemia acute Palpitations acute [facility] Work Phone: Evaluation note* Diagnosis Onset Date Resolution Status Constipated acute Dysphagia acute Segmental colitis associated with diverticulosis acute Angina pectoris acute Dizziness acute Essential hypertension acute Mixed hyperlipidemia acute Palpitations acute SOB (shortness of breath) on exertion acute [facility] Work Phone: Evaluation note* Diagnosis Onset Date Resolution Status Constipated acute Dysphagia acute Segmental colitis associated with diverticulosis acute Angina pectoris acute Dizziness acute Essential hypertension acute Mixed hyperlipidemia acute Palpitations acute SOB (shortness of breath) on exertion acute SOB (shortness of breath) on exertion acute [facility] Work Phone: Evaluation note* Diagnosis Onset Date Resolution Status Constipated acute Dysphagia acute Segmental colitis associated with diverticulosis acute Angina pectoris acute Dizziness acute Essential hypertension acute Mixed hyperlipidemia acute Palpitations acute SOB (shortness of breath) on exertion acute SOB (shortness of breath) on exertion acute GERD (gastroesophageal reflux disease) acute Segmental colitis associated with diverticulosis acute Slow transit constipation ac [place] Chest pain acute Vertigo acute [facility] Work Phone: Evaluation note* Diagnosis Onset Date Resolution Status Constipated acute Dysphagia acute Segmental colitis associated with diverticulosis acute Angina pectoris acute Essential hypertension acute Mixed hyperlipidemia acute Palpitations chronic Dizziness resolved SOB (shortness of breath) on exertion acute SOB (shortness of breath) on exertion acute GERD (gastroesophageal reflux disease) acute Segmental colitis associated with diverticulosis acute Slow transit constipation ac [place] Chest pain resolved Vertigo resolved Angina pectoris acute Essential hypertension acute Mixed hyperlipidemia acute Palpitations chronic Dizziness resolved [facility] Work Phone: Evaluation note* Diagnosis Onset Date Resolution Status SOB (shortness of breath) on exertion acute SOB (shortness of breath) on exertion acute GERD (gastroesophageal reflux disease) acute Segmental colitis associated with diverticulosis acute Slow transit constipation ac [place] Chest pain resolved Vertigo resolved Angina pectoris acute Essential hypertension acute Mixed hyperlipidemia acute Palpitations chronic Dizziness resolved SOB (shortness of breath) on exertion acute [facility] Work Phone: Evaluation note* Diagnosis Onset Date Resolution Status Asthma acute [facility] Work Phone: Evaluation note* Diagnosis Onset Date Resolution Status Asthma acute Health care maintenance acut e Essential hypertension chron ic Type 2 diabetes mellitus [facility] Work Phone: Evaluation note* Diagnosis Onset Date Resolution Status Essential hypertension chron ic GERD (gastroesophageal reflux disease) chronic Mixed hyperlipidemia chronic Obesity chronic Type 2 diabetes mellitus chr onic Delayed gastric emptying acu te GERD (gastroesophageal reflux disease) chronic Slow transit constipation ch ronic Abdominal pain acute Essential hypertension chron ic Type 2 diabetes mellitus [facility] Work Phone: Reason for referral (narrative)No reason for referral information availableWSamaritan North Health Center Work Phone: Chief Complaint and Reason for Visit Chief Complaint 2 WK FU AFTER SURGER Y CHEST PAIN FU CP/REF. DR. SHIVANI ZIEGLER HYPERTENSION Reason for Visit Constipated Dizziness Leg cramps Constipated Dysphagia Segmental colitis associated with diverticulosis Angina pectoris Dizziness Essential hypertension Mixed hyperlipidemia Palpitations Chief Complaint 2 WK FU AFTER SURGER Y CHEST PAIN FU CP/REF. DR. SHIVANI ZIEGLER HYPERTENSION CP CP Reason for Visit Constipated Dizziness Leg cramps Constipated Dysphagia Segmental colitis associated with diverticulosis Angina pectoris Dizziness Essential hypertension Mixed hyperlipidemia Palpitations Chief Complaint CHEST PAIN FU CP/REF. DR. SHIVANI ZIEGLER HYPERTENSION CP CP Reason for Visit Constipated Dysphagia Segmental colitis associated with diverticulosis Angina pectoris Dizziness Essential hypertension Mixed hyperlipidemia Palpitations Chief Complaint CHEST PAIN FU CP/REF. DR. SHIVANI ZIEGLER HYPERTENSION HYPERTENSION CP CP EORDER Shortness of breath CHEST PAIN Reason for Visit Constipated Dysphagia Segmental colitis associated with diverticulosis Angina pectoris Dizziness Essential hypertension Mixed hyperlipidemia Palpitations SOB (shortness of breath) on exertion Chief Complaint FU CP/REF. DR. SHIVANI ZIEGLER HYPERTENSION HYPERTENSION CP CP EORDER Shortness of breath CHEST PAIN SOB Shortness of breath SOB Shortness of breath Reason for Visit Constipated Dysphagia Segmental colitis associated with diverticulosis Angina pectoris Dizziness Essential hypertension Mixed hyperlipidemia Palpitations SOB (shortness of breath) on exertion Chief Complaint FU CP/REF. DR. FLORES E-ORDER HYPERTENSION HYPERTENSION CP CP EORDER Shortness of breath CHEST PAIN SOB Shortness of breath SOB Shortness of breath 1 M FU Reason for Visit Constipated Dysphagia Segmental colitis associated with diverticulosis Angina pectoris Dizziness Essential hypertension Mixed hyperlipidemia Palpitations SOB (shortness of breath) on exertion SOB (shortness of breath) on exertion Chief Complaint FU CP/REF. DR. FLORES E-ORDER HYPERTENSION HYPERTENSION CP CP EORDER Shortness of breath CHEST PAIN SOB Shortness of breath SOB Shortness of breath 1 M FU 2 WK FU VERTIGO Vertigo Vertigo Reason for Visit Constipated Dysphagia Segmental colitis associated with diverticulosis Angina pectoris Dizziness Essential hypertension Mixed hyperlipidemia Palpitations SOB (shortness of breath) on exertion SOB (shortness of breath) on exertion GERD (gastroesophageal reflux disease) Segmental colitis associated with diverticulosis Slow transit constipation Chest pain Vertigo Chief Complaint FU CP/REF. DR. FLORES E-ORDER HYPERTENSION HYPERTENSION CP CP EORDER Shortness of breath CHEST PAIN SOB Shortness of breath SOB Shortness of breath 1 M FU 2 WK FU VERTIGO Vertigo Vertigo 3 m fu Reason for Visit Constipated Dysphagia Segmental colitis associated with diverticulosis Angina pectoris Essential hypertension Mixed hyperlipidemia Palpitations Dizziness SOB (shortness of breath) on exertion SOB (shortness of breath) on exertion GERD (gastroesophageal reflux disease) Segmental colitis associated with diverticulosis Slow transit constipation Chest pain Vertigo Angina pectoris Essential hypertension Mixed hyperlipidemia Palpitations Dizziness Chief Complaint EORDER Shortness of breath CHEST PAIN SOB Shortness of breath SOB Shortness of breath 1 M FU 2 WK FU VERTIGO Vertigo Vertigo 3 m fu 3 M FU Reason for Visit SOB (shortness of br eath) on exertion SOB (shortness of breath) on exertion GERD (gastroesophageal reflux disease) Segmental colitis associated with diverticulosis Slow transit constipation Chest pain Vertigo Angina pectoris Essential hypertension Mixed hyperlipidemia Palpitations Dizziness SOB (shortness of breath) on exertion Chief Complaint 6-8 week fu eye problem Reason for Visit Asthma Chief Complaint 6-8 week fu eye problem [employer] [facility] - PPW SENT Reason for Visit Asthma Health care maintenance Essential hypertension Type 2 diabetes mellitus Chief Complaint 3 m fu 1 YR FU 3 M FU Reason for Visit Essential hypertensi on GERD (gastroesophageal reflux disease) Mixed hyperlipidemia Obesity Type 2 diabetes mellitus Delayed gastric emptying GERD (gastroesophageal reflux disease) Slow transit constipation Abdominal pain Essential hypertension Type 2 diabetes mellitus Chief Complaint Admit Date 3 M FU November 11, 2024 9 :46am COUGH X 1 MONTH November 21, 2024 3:25pm BRONCHITIS FU December 01, 2024 1:23pm XRAY December 01, 2024 2:16pm 6 M FU December 16, 2024 9:56 am INT LABS December 16, 2024 10:5 8am FU ON INHALER December 21, 2024 3:2 4pm osteopenia December 29, 2024 7:5 1am Reason for Visit Admit Date Abnormal stress test November 11, 2024 9:46am Essential hypertension November 11 9:46am Mixed hyperlipidemia November 11, 2024 9:46am Acute bronchitis, unspecified November 122024 3:25pm Acute bronchitis, unspecified November 132024 1:23pm Abdominal pain December 16, 2024 9:56 am Anemia December 16, 2024 9:56 am GERD (gastroesophageal reflux disease) [facility] 2024 9:56am Bronchitis December 21, 2024 3:2 4pm Gammopathy, monoclonal December 21, 2024 3:24pm Osteopenia determined by x-ray December 3:24pm Chief Complaint Admit Date 3 M FU November 11, 2024 9 :46am COUGH X 1 MONTH November 21, 2024 3:25pm BRONCHITIS FU December 01, 2024 1:23pm XRAY December 01, 2024 2:16pm 6 M FU December 16, 2024 9:56 am INT LABS December 16, 2024 10:5 8am FU ON INHALER December 21, 2024 3:2 4pm osteopenia December 29, 2024 7:5 1am chk up January 02, 2025 3:0 4pm Reason for Visit Admit Date Abnormal stress test November 11, 2024 9:46am Essential hypertension November 11 9:46am Mixed hyperlipidemia November 11, 2024 9:46am Acute bronchitis, unspecified November 122024 3:25pm Acute bronchitis, unspecified November 132024 1:23pm Abdominal pain December 16, 2024 9:56 am Anemia December 16, 2024 9:56 am GERD (gastroesophageal reflux disease) [facility] 2024 9:56am Bronchitis December 21, 2024 3:2 4pm Gammopathy, monoclonal December 21, 2024 3:24pm Osteopenia determined by x-ray December 3:24pm Osteopenia determined by x-ray December 3:04pm Essential hypertension January 02, 2025 3:04pm Mixed hyperlipidemia January 02, 2025 3: 04pm Type 2 diabetes mellitus January 02 3:04pm Chief Complaint Admit Date 3 M FU November 11, 2024 9 :46am COUGH X 1 MONTH November 21, 2024 3:25pm BRONCHITIS December 01, 2024 1:23pm XRAY December 01, 2024 2:16pm 6 M FU December 16, 2024 9:56 am INT LABS December 16, 2024 10:5 8am FU ON INHALER December 21, 2024 3:2 4pm osteopenia December 29, 2024 7:5 1am chk up January 02, 2025 3:0 4pm ELEVATED IGG, M-SPIKE January 09, 2025 2 :52pm 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, 2025 8:41am Reason for Visit Admit Date Abnormal stress test November 11, 2024 9:46am Essential hypertension November 11 9:46am Mixed hyperlipidemia November 11, 2024 9:46am Acute bronchitis, unspecified November 122024 3:25pm Acute bronchitis, unspecified November 132024 1:23pm Abdominal pain December 16, 2024 9:56 am Anemia December 16, 2024 9:56 am GERD (gastroesophageal reflux disease) 2024 9:56am Bronchitis December 21, 2024 3:2 4pm Osteopenia determined by x-ray December 3:24pm Gammopathy, monoclonal December 21, 2024 3:24pm Osteopenia determined by x-ray December 3:04pm Essential hypertension January 02, 2025 3:04pm Mixed hyperlipidemia January 02, 2025 3: 04pm Type 2 diabetes mellitus January 02 3:04pm Gammopathy, monoclonal January 09, 2025 2:52pm Chief Complaint Admit Date COUGH X 1 MONTH November 21, 2024 3:25pm BRONCHITIS FU December 01, 2024 1:23pm XRAY December 01, 2024 2:16pm 6 M FU December 16, 2024 9:56 am INT LABS December 16, 2024 10:5 8am FU ON INHALER December 21, 2024 3:2 4pm osteopenia December 29, 2024 7:5 1am chk up January 02, 2025 3:0 4pm ELEVATED IGG, M-SPIKE January 09, 2025 2 :52pm 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, 2025 8:41am ACUTE-DEEP COUGH March 13, 2025 1:25p m Reason for Visit Admit Date Acute bronchitis, unspecified November 122024 3:25pm Acute bronchitis, unspecified November 132024 1:23pm Abdominal pain December 16, 2024 9:56 am Anemia December 16, 2024 9:56 am GERD (gastroesophageal reflux disease) M 2024 9:56am Bronchitis December 21, 2024 3:2 4pm Osteopenia determined by x-ray December 3:24pm Gammopathy, monoclonal December 21, 2024 3:24pm Osteopenia determined by x-ray December 3:04pm Essential hypertension January 02, 2025 3:04pm Mixed hyperlipidemia January 02, 2025 3: 04pm Type 2 diabetes mellitus January 02 3:04pm Gammopathy, monoclonal January 09, 2025 2:52pm Family History No Family History Records Found Relationship Condition Age at Onset Recorded Date/T kinjal grandfather Cardiac disease Unknown grandmother Cardiac disease Unknown Relationship Condition Age at Onset Recorded Date/T kinjal grandfather Cardiac disease Unknown grandmother Cardiac disease Unknown Malignant neoplasm of esophagus Unknown mother Multiple myeloma Unknown Advance Directives No Advanced Directives Records Found Advance Directive Response Recorded Date/ Time Advance Directives No January 15 8:24am Living Will No January 15, 2022 8:24am Power of Telecommunications Line Mechanic No January 15 8:24am Advance Directive Response Recorded Date/ Time Advance Directives No January 16 7:03am Living Will No January 16, 2022 7:03am Power of Telecommunications Line Mechanic No January 16 7:03am Advance Directive Response Recorded Date/ Time Advance Directives No January 16 7:03am Living Will No February 25, 2022 1 0:26am Power of Telecommunications Line Mechanic No February 25, 2022 10:26am Advance Directives on File No January 16, 2022 7:03am Advance Directive Response Recorded Date/ Time Advance Directives on File No January 16, 2022 7:03am Advance Directives No January 16 7:03am Living Will Yes March 31, 2022 12:37am Power of Telecommunications Line Mechanic No March 31 12:37am Advance Directive Response Recorded Date/ Time Advance Directives No January 16 7:03am Living Will Yes March 31, 2022 12:37am Power of Telecommunications Line Mechanic No March 31 12:37am Advance Directive Response Recorded Date/ Time Advance Directives No January 16 7:03am Living Will No April 24, 2023 11:19pm Power of Telecommunications Line Mechanic No April 24 11:19pm Advance Directive Response Recorded Date/ Time Advance Directives No January 16 6:03am Living Will No April 24, 2023 10:19pm Power of Telecommunications Line Mechanic No April 24 10:19pm Advance Directive Response Recorded Date/ Time Living Will No April 24, 2023 11:19pm Do you have a Healthcare Power of Telecommunications Line Mechanic? No April 24, 2023 11:19pm Living Will Yes July 13 11:45am Do you have a Healthcare Power of Telecommunications Line Mechanic? Yes July 13, 2024 11:45am Advance Directives Yes November 3:15pm Advance Directive Response Recorded Date/ Time Living Will No April 24, 2023 11:19pm Do you have a Healthcare Power of Telecommunications Line Mechanic? No April 24, 2023 11:19pm Advance Directives Yes November 3:15pm Summary Purpose Additional Source Comments Goals (unrecognized section and content) Goals may be documented in a n alternate sectionGoals may be documented in an alternate sectionGoals may be documented in an alternate sectionGoals may be documented in an alternate sectionGoals may be documented in an alternate sectionGoals may be documented in an alternate sectionGoals may be documented in an alternate sectionGoals may be documented in an alternate sectionGoals may be documented in an alternate sectionGoals may be documented in an alternate sectionGoals may be documented in an alternate sectionGoals may be documented in an alternate sectionGoals may be documented in an alternate sectionGoals may be documented in an alternate section Care Teams (unrecognized sec tion and content) Team Status: Active Member Role Status Dates Dr. Adam Alex MD Family Provider Active Dr. Adam Alex MD Primary Care Provider Active Team Status: Inactive Member Role Status Dates Dr. Adam Alex MD Primary Care Provider, Referring Provider Active Dr. French Buchanan DO Attending Provider Active Team Status: Inactive Member Role Status Dates Dr. Adam Alex MD Primary Care Provider Active Dr. Luis Lizarraga DO Emergency Provider Active Team Status: Active Member Role Status Dates Dr. Adam Alex MD Family Provider Active Dr. Timmy Floyd MD Primary Care Provider Active Team Status: Inactive Member Role Status Dates Dr. Adam Alex MD Primary Care Provider, Referring Provider Active Dr. Timmy Floyd MD Attending Provider Active Team Status: Inactive Member Role Status Dates Dr. Adam Alex MD Primary Care Provider Active Dr. Luis Lizarraga DO Attending Provider, Emergency Pr ovider Active Team Status: Inactive Member Role Status Dates Dr. Timmy Floyd MD Primary Care P rovider, Attending Provider, Referring Provider Active Team Status: Inactive Member Role Status Dates Dr. Adam Alex MD Referring Provider Active Dr. Robert Flores DO Attending Provider Active Dr. Timmy Floyd MD Primary Care Provider Active Team Status: Inactive Member Role Status Dates Dr. Timmy Floyd MD Primary Care Provider, Atten ding Provider Active Team Status: Active Member Role Status Dates Dr. Timmy Floyd MD Primary Care Provider Active Team Status: Inactive Member Role Status Dates Dr. Timmy Floyd MD Primary Care Provider Active Start: November 11, 2024 End: November 11, 2024 Dr. Timmy Floyd MD Referring Provider Active Start: November 11, 2024 End: November 11, 2024 Sarita Murillo PA, PA Attending Provider Active Start: November 11, 2024 End: November 11, 2024 Team Status: Inactive Member Role Status Dates Dr. Timmy Floyd MD Primary Care Provider Active Start: November 21, 2024 End: November 21, 2024 Dr. Timmy Floyd MD Referring Provider Active Start: November 21, 2024 End: November 21, 2024 SUJATA Verduzco Attending Provider Active Start: November 21, 2024 End: November 21, 2024 Team Status: Inactive Member Role Status Dates Dr. Timmy Floyd MD Primary Care Provider Active Start: December 01, 2024 End: December 01, 2024 Dr. Timmy Floyd MD Referring Provider Active Start: December 01, 2024 End: December 01, 2024 SUJATA Majano Attending Provider Active St art: December 01, 2024 End: December 01, 2024 Team Status: Inactive Member Role Status Dates Dr. Timmy Floyd MD Primary Care Provider Active Start: December 01, 2024 End: December 01, 2024 Dr. Kelby Seth MD Attending Provider Active S tart: December 01, 2024 End: December 01, 2024 Team Status: Inactive Member Role Status Dates Dr. Timmy Floyd MD Primary Care Provider Active Start: December 16, 2024 End: December 16, 2024 Dr. Timmy Floyd MD Referring Provider Active Start: December 16, 2024 End: December 16, 2024 Dr. Robert Flores DO Attending Provider Active Start: December 16, 2024 End: December 16, 2024 Team Status: Inactive Member Role Status Dates Dr. Timmy Floyd MD Primary Care Provider Active Start: December 16, 2024 End: December 16, 2024 Dr. Robert Flores DO Attending Provider Active Start: December 16, 2024 End: December 16, 2024 Dr. Robert Flores DO Referring Provider Active Start: December 16, 2024 End: December 16, 2024 Team Status: Inactive Member Role Status Dates Dr. Timmy Floyd MD Primary Care Provider Active Start: December 21, 2024 End: December 21, 2024 Dr. Timmy Floyd MD Referring Provider Active Start: December 21, 2024 End: December 21, 2024 SUJATA Majano Attending Provider Active St art: December 21, 2024 End: December 21, 2024 Team Status: Active Member Role Status Dates Dr. Timmy Floyd MD Primary Care Provider Active Start: December 29, 2024 SUJATA Majano Attending Provider Active St art: December 29, 2024 SUJATA Majano Referring Provider Active St art: December 29, 2024 Team Status: Inactive Member Role Status Dates Dr. Timmy Floyd MD Primary Care Provider Active Start: December 29, 2024 End: December 29, 2024 SUJATA Majano Attending Provider Active St art: December 29, 2024 End: December 29, 2024 SUJATA Majano Referring Provider Active St art: December 29, 2024 End: December 29, 2024 Team Status: Inactive Member Role Status Dates Dr. Timmy Floyd MD Primary Care Provider Active Start: January 02, 2025 End: January 02, 2025 Dr. Timmy Floyd MD Attending Provider Active Start: January 02, 2025 End: January 02, 2025 Dr. Timmy Floyd MD Referring Provider Active Start: January 02, 2025 End: January 02, 2025 Team Status: Inactive Member Role Status Dates Dr. Timmy Floyd MD Primary Care Provider Active Start: January 09, 2025 End: January 09, 2025 Dr. Miles Armendariz MD Attending Provider Active S tart: January 09, 2025 End: January 09, 2025 Dr. Robert Flores DO Referring Provider Active Start: January 09, 2025 End: January 09, 2025 Team Status: Inactive Member Role Status Dates Dr. Timmy Floyd MD Primary Care Provider Active Start: February 09, 2025 End: February 09, 2025 Dr. Miles Armendariz MD Attending Provider Active S tart: February 09, 2025 End: February 09, 2025 Dr. Miles Armendariz MD Referring Provider Active S tart: February 09, 2025 End: February 09, 2025 Team Status: Inactive Member Role Status Dates Dr. Timmy Floyd MD Primary Care Provider Active Start: March 13, 2025 End: March 13, 2025 Dr. Timmy Floyd MD Referring Provider Active Start: March 13, 2025 End: March 13, 2025 TYSON John Attending Provider Active Start: March 13, 2025 End: March 13, 2025 (unrecognized sect ion and content) No Status Records Found INFORMATION SOURCE (unrecogn ized section and content) DATE CREATED AUTHOR 03/14/2025 [facility] FOR RECORDS PERTAINING TO PATIENTS WHO ARE OR HAVE BEEN ENROLLED IN A CHEMICAL DEPENDENCY/SUBSTANCEABUSE PROGRAM, SOME INFORMATION MAY BE OMITTED. This clinical summary was aggregated from multiple sources. Caution should be exercised in using it in the provision of clinical care. This summary normalizes information from multiple sources, and as a consequence, information in this document may materially change the coding, format and clinical context of patient data. In addition, data may be omitted in some cases. CLINICAL DECISIONS SHOULD BE BASED ON THE PRIMARY CLINICAL RECORDS. [employer] [facility]. provides no warranty or guarantee of the accuracy or completeness of information in this document.
[2025-03-20 08:21] LABS: Erythrocyte Sedimentation Rate 15 mm/hr (0-20)
[2025-03-20 08:22] LABS: Absolute Lymphocyte Count 2.69 X10^3/uL (0.83-4.51); Absolute Neutrophil Count 4.1 X10^3/uL (2.0-7.7); Basophil# 0.08 X10^3/uL; Basophil% 0.9 % (0-1); Eosinophil# 0.88 X10^3/uL; Eosinophils% 10.3 % (0-5); Hematocrit 37.6 % (40-54); Hemoglobin 12.7 g/dL (13.0-16.5); Lymphocyte # 2.69 X10^3/ul (0.83-4.51); Lymphocyte % 31.6 % (19-41); Mean Corp Hgb Conc 33.8 g/dL (32-36); Mean Corpuscular Hgb 31.4 pg (27.0-32.0); Mean Corpuscular Volume 93.1 fL (80-94); Mean Platelet Vol. 9.3 fl (6.2-12.0); Monocyte% 8.2 % (0-10); NRBC Flagged by Analyzer 0 % (0-5); Neutrophil # 4.13 X10^3/uL (2.7-7.7); Neutrophil % 48.5 % (47-70); Platelet Count 449 K/mm3 (150-450); RBC Distribution Width CV 12.8 % (11.6-14.6); RBC Distribution Width SD 43.7 fl (35.1-43.9); Red Blood Count 4.04 M/mm3 (4.6-6.2); White Blood Count 8.5 K/mm3 (4.4-11.0)
[2025-03-20 08:52] LABS: CRP 3.09 mg/L (0.0-3.0); EST Glomerular Filtration Rate 59 (>60)
[2025-03-20 09:09] LABS: ALB/GLOB Ratio 1.2 RATIO (0.9-2.4); AST(SGOT) 21 U/L (<=37); Alanine Aminotransfer ALT/SGPT 16 U/L (<=46); Albumin, Serum 4.2 g/dL (3.4-4.8); Alkaline Phosphatase 88 U/L (40-129); Anion Gap 13 (5-15); BUN 35 mg/dL (4-19); BUN/Creat Ratio 27.6 RATIO (10-20); Calcium,Total 9.8 mg/dL (7.6-11.0); Chloride 102 mmol/L (98-108); Creatinine, Serum 1.26 mg/dL (0.70-1.20); Globulin 3.5 g/dL (2.2-4.2); Glucose 157 mg/dL (70-99); Potassium 4.7 mmol/L (3.3-5.1); Protein, Total 7.8 g/dL (5.9-8.4); Sodium Level 138 mmol/L (133-145); Total Bilirubin 0.59 mg/dL (0.00-1.30); Vitamin B12 388 pg/mL (180-914)
[2025-03-20 09:36] LABS: LDH 152 U/L (87-241)
[2025-03-24 15:08] LABS: Albumin 3.6 g/dL (2.9-4.4); Alpha-1-Globulins 0.2 g/dL (0.0-0.4); Alpha-2-Globulins 0.9 g/dL (0.4-1.0); Complement C3 155 mg/dL (82-167); Complement CH50 > 60 U/mL (>41); Free Kappa Light Chains 18.5 mg/L (3.3-19.4); Free Lambda Light Chains 348.4 mg/L (5.7-26.3); Gamma Globulin 1.6 g/dL (0.4-1.8); Immunoglobulin A 69 mg/dL (61-437); Immunoglobulin G 1857 mg/dL (603-1613); Immunoglobulin M 36 mg/dL (15-143); PROEL- TOTAL PROTEIN 7.3 g/dL (6.0-8.5)
== END | disposition home or self-care (01) ==
LOC: LAB 07:21
PROVIDERS: PCP Internal Medicine; Referring Provider Internal Medicine Medical Oncology; Visit Provider Internal Medicine Medical Oncology
DX: D47.2 Monoclonal gammopathy (principal)
CPT/HCPCS: 36415; 80053; 82607; 82784; 83615; 83883; 84165; 84550; 85025; 85652; 86140; 86160; 86162; 86334

== ENCOUNTER → 2025-03-27 | Outpatient (CLI) | payer MEDICARE, OTHER, SELFPAY ==
[2025-03-27 14:30] LABS: CREATININE FINGERSTICK 1.2 mg/dL (0.70-1.30); EGFR FINGERSTICK > 60.0000 mL/min (>60)
--- NOTE | 2025-03-27 14:35 | CT_ITS ---
PROCEDURE: SOFT TISSUE NECK WITH CONTRAST 03/27/2025 REASON FOR EXAM: MGUS R/O LYMPHOMA TECHNIQUE: SOFT TISSUE NECK WITH CONTRAST CONTRAST: Isovue-300 VOLUME: 100 mL One or more dose reduction techniques were used (e.g., Automated exposure control, adjustment of the mA and/or kV according to patient size, use of iterative reconstruction technique). RADIATION DOSE SUMMARY: CTDlvol: 18.64 mGy DLP: 554.25 mGycm COMPARISON: None FINDINGS: Airway: Midline and patent. Salivary glands: Unremarkable. Lymph nodes: No cervical lymphadenopathy. Thyroid: Unremarkable. Vasculature: Carotid arteries and internal jugular veins are unremarkable. Orbits: Unremarkable at visualized levels. Paranasal sinuses and mastoids: Mild degree of mucosal thickening along the inferior aspect of the right maxillary sinus. Lung apices: Unremarkable Upper mediastinum: Unremarkable Bones: Multilevel degenerative changes of the spine. 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 Other: CT/Soft Tissue Neck WITH Contrast IMPRESSION: No acute abnormality is seen. Reading Location: [place] [id number]
--- NOTE | 2025-03-27 14:35 | CT_ITS ---
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 Coronal and Sagittal reconstruction series were provided. One or more dose reduction techniques were used (e.g., Automated exposure control, adjustment of the mA and/or kV according to patient size, use of iterative reconstruction technique. PATIENT PREPARATION: Per protocol ORAL CONTRAST TYPE: None. CONTRAST: Isovue 370 VOLUME: 100mL RADIATION DOSE SUMMARY: CTDlvol: 17.68 mGy DLP: 1003.52 mGycm COMPARISON: None FINDINGS: CT CHEST: Hardware: None Lymph nodes: No hilar or mediastinal lymphadenopathy is seen. Heart and Vasculature: Coronary artery calcifications are noted. Lungs and Airways: No pulmonary mass is seen. Mild increased markings at the lung bases suggestive of linear scarring and/or atelectasis. Pleura: No pleural effusion. Bones: Degenerative changes of the thoracic spine. CT ABDOMEN/PELVIS: Liver: Normal size. No mass. Gallbladder: Unremarkable Spleen: Normal size. Pancreas: Diffuse fatty atrophy. Adrenals: Unremarkable Kidneys: Normal renal sizes. No hydronephrosis. Bladder: Unremarkable. Prior TURP. Bowel: Colonic diverticulosis without diverticulitis. Appendix: Unremarkable Lymph nodes: Unremarkable. Vasculature: Mild diffuse atherosclerotic calcifications are noted. Peritoneum / Retroperitoneum: No retroperitoneal lymph nodes are seen. Bones: Degenerative changes of the spine. CT/CT Chest, Abd, Pel w/Contrast IMPRESSION: No evidence of mediastinal, hilar or retroperitoneal lymphadenopathy. Reading Location: [place] [id number]
--- OUTSIDE RECORDS SUMMARY | 2025-03-27 23:24 | XMS RPT_ITS | CCD ---
Author Organization [facility] Care Team Providers Care Human Performance Technologist Name Role Phone Dr. Adam Alex Chi Primary Care Provider Dr. Adam Alex Chi Referring Provider 1([facility])[phone] Robert Flores Attending Provider 1([facility])[phone] Joe EXECUTIVE SECRETARY SOCIAL WELFARE, EXECUTIVE SECRETARY SOCIAL WELFARE-C Elaine Blank Attending Provider Dr. Sarmad Muñoz Attending Provider 1([facility])[phone] Dr. Sarmad Muñoz Other Provider 1([facility])[phone] Adam Alex Chi Primary Care Provider Dr. Adam Alex Chi Referring Provider Dr. Sarmad Muñoz Referring Provider Dr. French Buchanan Attending Provider Dr. French Buchanan Referring Provider Dr. French Buchanan Other Provider Dr. Tobin Castellon Attending Provider 1([facility])[phone] Blanche EXECUTIVE SECRETARY SOCIAL WELFARE, EXECUTIVE SECRETARY SOCIAL WELFARE-C Raysa Attending Provider Dr. Robert Flores Attending Provider [phone] Jones Other Provider Dr. Reynaldo Schmitt Emergency Provider Dr. Adam Lerma Admit Provider Dr. Adam Lerma Attending Provider Dr. Adam Lerma Other Provider Dr. Sebastian Keith Attending Provider Dr. Sebastian Keith Other Provider Jason EXECUTIVE SECRETARY SOCIAL WELFARE, EXECUTIVE SECRETARY SOCIAL WELFARE-C Max Narayan Attending Provider Isai, Dr. Adam Loomis Primary Care Provider Isai, Dr. Adam Loomis Referring Provider Dr. Sarmad Muñoz Attending Provider Joe EXECUTIVE SECRETARY SOCIAL WELFARE, EXECUTIVE SECRETARY SOCIAL WELFARE-C Elaine Blank Attending Provider Isai, Dr. Adam Loomis Primary Care Provider Isai, Dr. Adam Loomis Referring Provider Dr. French Buchanan Attending Provider Mariel, Dr. Warner Attending Provider [phone] Mariel, Dr. Warner Primary Care Provider [phone] Dr. Timmy Floyd Attending Provider [phone] Mariel, Dr. Warner Referring Provider Isai, Dr. Adam Loomis Referring Provider Dr. Robert Flores Attending Provider [phone] Dr. Timmy Floyd MD Primary Care Provider Mariel BULL, Dr. Warner Referring Provider [phone] Sarita Damian Attending Provider [phone] Quirino Hamlin Attending Provider Sean Armas Attending Provider Dr. Kelby Seth MD Attending Provider [phone] Dr. Robert Flores DO Attending Provider Dr. Robert Flores DO Referring Provider Sean Armas Referring Provider Dr. Timmy Floyd MD Attending Provider [phone] Dr. Miles Armendariz MD Attending Provider Kala BULL, Dr. Aquino Referring Provider [phone] Mariel BULL, Dr. Warner Primary Care Provider Mraiel BULL, Dr. Warner Referring Provider [phone] Luna Nunez Attending Provider [phone] Mariel BULL, Dr. Warner Primary Care Provider Mariel BULL, Dr. Warner Referring Provider [phone] Oleghe, Efewongbe Primary Care Unavailable Oleghe, Efewongbe Referring Unavailable Quirino Hamlin Attending Unavailable Oleghe, Efewongbe Primary Care Unavailable Kathleen Grande NP Referring Unavailable Dorinda, [place] Attending Unavailable Oleghe, Efewongbe Primary Care Unavailable Oleghe, Efewongbe Referring Unavailable Sean Armas Attending Unavailable Oleghe, Efewongbe Primary Care Unavailable Dorinda, Kelby Attending Unavailable Oleghe, Efewongbe Primary Care Unavailable Sarita Damian Referring Unavail able Sarita Damian Attending Unavail able Dorinda, [place] Referring Unavailable Oleghe, Efewongbe Primary Care Unavailable Dorinda, Kelby Attending Unavailable Oleghe, Efewongbe Primary Care Unavailable Kathleen Grande NP Referring Unavailable Harjinder JAMES, Kathleen Attending Unavailable Oleghe, Efewongbe Consulting Unavailable Oleghe, Efewongbe Primary Care Unavailable Oleghe, Efewongbe Referring Unavailable Keiko Arrieta Attending Unavailable Oleghe, Efewongbe Primary Care Unavailable Oleghe, Efewongbe Referring Unavailable Oleghe, Efewongbe Attending Unavailable Era Mason Attending Unavailable Oleghe, Efewongbe Primary Care Unavailable Oleghe, Efewongbe Referring Unavailable Oleghe, Efewongbe Primary Care Unavailable Oleghe, Efewongbe Referring Unavailable Oleghe, Efewongbe Attending Unavailable Oleghe, Efewongbe Primary Care Unavailable Shivani, Robert Referring Unavailable Miles Armendariz Attending Unavailable Oleghe, Efewongbe Referring Unavailable Oleghe, Efewongbe Primary Care Unavailable Harjinder JAMES, Kathleen Attending Unavailable Oleghe, Efewongbe Primary Care Unavailable Oleghe, Efewongbe Referring Unavailable Luna Dasilva Attending Unavailable Oleghe, Efewongbe Primary Care Unavailable Friend, Robert Referring Unavailable Friend, Robert Attending Unavailable Oleghe, Efewongbe Primary Care Unavailable Oleghe, Efewongbe Attending Unavailable Oleghe, Efewongbe Primary Care Unavailable Oleghe, Efewongbe Referring Unavailable Oleghe, Efewongbe Attending Unavailable Miles Armendariz Referring Unavailable Oleghe, Efewongbe Primary Care Unavailable Miles Armendariz Attending Unavailable Oleghe, Efewongbe Primary Care Unavailable Oleghe, Efewongbe Referring Unavailable Miles Armendariz Attending Unavailable Oleghe, Efewongbe Primary Care Unavailable Sean Armas Referring Unavailable Sean Armas Attending Unavailable Oleghe, Efewongbe Primary Care Unavailable Miles Armendariz Referring Unavailable Miles Armendariz Attending Unavailable Oleghe, Efewongbe Primary Care Unavailable Oleghe, Efewongbe Referring Unavailable Sarita Damian Attending Unavail able Oleghe, Efewongbe Primary Care Unavailable Oleghe, Efewongbe Referring Unavailable Friend, Robert Attending Unavailable Oleghe, Efewongbe Primary Care Unavailable Oleghe, Efewongbe Referring Unavailable Sean Armas Attending Unavailable Oleghe, Efewongbe Primary Care Unavailable Oleghe, Efewongbe Referring Unavailable Sarita Damian Attending Unavail able Allergies Allergy Classification Reported Allergen(s) Allergy Type Date of Onset Reaction(s) Facility (19 sources) Amoxicillin Drug Allergy 2 Swelling [facility] (19 sources) HYDROcodone Drug Allergy 2 Other [facility] (19 sources) Nitroglycerin Drug Allergy 2 SEVERE HYPOTENSION [facility] (1 source) Amoxicillin Drug Allergy 5 [facility] Repository (1 source) HYDROcodone Drug Allergy 5 [facility] Rep[facility] (1 source) Nitroglycerin Drug Allergy 5 [facility] Medications Current Medications Medication Drug Class(es) Dates Sig (Normalized) Sig (Original) amLODIPine 5 mg oral tablet (6 sources) Dihydropyridine Calcium Channel Rafy Start: 07-13-2024 [...] 2016 12:24pm atorvastatin 40 mg oral tablet (11 sources) HMG-CoA Reductase Inhibitor Start: 11-29-2024 End: 01-02-2025 take 1 tablet by mouth once daily in the evening Atorvastatin 40 mg tablet Active 40 mg PO EVERY EVENING January 02, 2025 3:43pm cholecalciferol 0.025 mg oral tablet (19 sources) Vitamin D Start: 08-13-2021 take 1 tablet by mouth once daily Cholecalciferol (Vitamin D3) (Vitamin D3) 25 mcg (1,000 unit) Tablet Active 25 ug PO DAILY August 13, 2021 12:00am Compress.Amanda Pendleton e,Reg,Lrg misc (6 sources) Start: 03-03-2024 Compress.Melanie Pendleton,Reg,Lrg misc Active 0 .MEDSUPPLY March 03, 2024 12:00am wear daily for venous insufficiency 20-30 mmHg MDI spacer (6 sources) Start: 12-01-2024 MDI spacer Active 0 .Route .MEDSUPPLY December 01, 2024 1:00am To be used with inhaler Multivitamin preparation (13 sources) Start: 08-13-2021 take 1 tablet by mouth once daily Multivitamin Active 1 TABLET PO DAILY August 13, 2021 8:19am Start: 08-13-2021 take 1 tablet by gracie once daily Multivitamin Active 1 TABLET PO DAILY August 12, 2021 11:00pm Start: 08-13-2021 take 1 tablet by gracie th once daily Multivitamin Active 1 TABLET PO DAILY August 13, 2021 12:00am Multivitamin Tablet (6 sources) Start: 08-13-2021 Multivitamin T ablet Active 1 {tbl} PO DAILY August 13, 2021 12:00am Completed/Discontinued Medications Medication Drug Class(es) Dates Sig (Normalized) Sig (Original) [id number] 200 actuat albuterol 0.09 mg/actuat metered dose [...] with spacer azithromycin 250 mg oral tablet (13 sources) Macrolide Antimicrobial Start: 11-21-2024 End: 12-01-2024 Azithromycin 250 mg tablet Discontinued 0 PO .COMPLEX November 21, 2024 1:00am December 01, 2024 [...] 2-5) PO benzonatate 200 mg oral capsule (6 sources) Non-narcotic Antitussive Start: 11-21-2024 End: 12-21-2024 take 1 capsule by mouth three times daily as needed for cough Benzonatate 200 mg capsule Discontinued 200 mg PO THREE TIMES A DAY as needed for cough November 21, 2024 1:00am December 21, 2024 3:43pm bisacodyl 5 mg delayed release oral tablet (19 sources) Stimulant Laxative Start: 08-28-2021 End: 12-18-2021 take 1 tablet by mouth once Bisacodyl 5 mg tablet,delayed release (DR/EC) Discontinued 5 mg PO ONCE August 28, 2021 1:00am December 18, 2021 10:46am take as directed for bowel prep Budesonide-Glycopy r-Formoterol (15 sources) Corticosteroid, beta2-Adrenergic Agonist Start: 06-10-2024 End: 08-09-2024 Budesonide-Glycopy r-Formoterol (Breztri Aerosphere) 160-9-4.8 mcg/actuation HFA aerosol inhaler Discontinued NMA INHALATION June 10, 2024 12:00am August 09, 2024 8:33am Start: 12-24-2022 End: 03-23-2023 Ccccwkwlmk-Gjvponhj-Qhtdbmim ol (Breztri Aerosphere) 160-9-4.8 mcg/actuation HFA aerosol inhaler Discontinued 2 NMA INHALATION TWICE A DAY 10.7 December 24, 2022 12:00am March 23, 2023 10:23am Start: 12-24-2022 End: 03-23-2023 Svuetkbrqh-Lofpvnsl-Eauwmxod ol (Breztri Aerosphere) 160-9-4.8 mcg/actuation HFA aerosol inhaler Discontinued 2 INH INHALATION TWICE A DAY 10.7 December 23, 2022 11:00pm March 23, 2023 9:23am Start: 12-24-2022 End: 03-23-2023 Ugkxxrugjx-Oseawdvp-Wwqowyfb ol (Breztri Aerosphere) 160-9-4.8 mcg/actuation HFA aerosol [...] 2023 9:56am ciprofloxacin 500 mg oral tablet (19 sources) Quinolone Antimicrobial Start: 12-20-2016 End: 11-18-2017 take 1 tablet by mouth twice daily Ciprofloxacin Hcl 500 MG tablet Discontinued 500 mg PO TWICE A DAY December 20, 2016 1:00am November 18, 2017 1:43pm dexamethasone 1 mg/ml / neomycin 3.5 mg/ml / polymyxin b 67675 unt/ml ophthalmic suspension (9 sources) Aminoglycoside Antibacterial, Polymyxin-class Antibacterial, Corticosteroid Start: 04-24-2023 End: 08-04-2023 Neomycin-Polymyxin B-Dexameth (Maxitrol) 3.5mg/mL-10,000 unit/mL-0.1 % drops,suspension Discontinued 2 NMA EACH EYE 4 TIMES DAILY 5 April 24, 2023 12:00am August 04, 2023 8:29am Start: 04-24-2023 End: 08-04-2023 Neomycin-Polymyxin B-Dexamet h (Maxitrol) 3.5mg/mL-10,000 unit/mL-0.1 % drops,suspension Discontinued 2 DRP EACH EYE 4 TIMES DAILY 5 April 23, 2023 11:00pm August 04, 2023 7:29am 30 actuat fluticasone furoate 0.1 mg/actuat dry powder inhaler (20 sources) Corticosteroid Start: 12-02-2024 End: 03-13-2025 take 100 ug by inhalation once daily as needed Fluticasone Furoate (Arnuity Ellipta) 100 mcg/actuation blister with device Discontinued 1 NMA INHALATION daily as needed March 13, 2025 1:42pm March 13, 2025 2:06pm Start: 05-15-2022 End: 12-03-2023 take 50 ug [...] 03, 2023 2:10pm administer into each nostril Fluticasone Propionate 110 mcg/actuation HFA aerosol inhaler (6 sources) Start: 12-01-2024 End: 12-02-2024 Fluticasone Propionate [...] Glimepiride Discontinued 6 MG PO DAILY 270 May 12, 2023 10:50am December 03, 2023 [...] 2022 9:41am lactulose 667 mg/ml oral solution (19 sources) Osmotic Laxative Start: 09-18-2021 End: 12-18-2021 take 20 g by mouth twice daily for diarrhea Lactulose 20 gram/30 mL solution Discontinued 20 g PO TWICE A DAY 1200 September 18, 2021 1:00am December 18, 2021 10:50am hold for diarrhea linaclotide 0.072 mg oral capsule (19 sources) Guanylate Cyclase-C Agonist Start: 09-02-2021 End: [...] 8:51am magnesium oxide 400 mg oral tablet (19 sources) Start: 09-18-2021 End: 12-18-2021 take 1 [...] (Duler a) 200-5 mcg/actuation HFA aerosol inhaler (18 sources) Start: 03-23-2023 End: 08-04-2023 Mometasone-Formoterol (Duler [...] 2022 10:21am montelukast 10 mg oral tablet (20 sources) Leukotriene Receptor Antagonist Start: 07-20-2023 End: [...] September 25, 2022 3:01pm polyethylene glycol 3350 16577 mg powder for oral solution (20 sources) [...] bowel prep predniSONE 20 mg oral tablet (7 sources) Start: 07-20-2023 End: 08-04-2023 take 3 [...] ranolazine 500 mg extended release oral tablet (19 sources) Anti-anginal Start: 01-02-2022 End: 01-16-2022 take 1 tablet by mouth twice daily Ranolazine (Ranexa) 500 mg tablet extended release 12 hr Discontinued 500 mg PO TWICE A DAY 60 January 02, 2022 12:00am January 16, 2022 9:13am 72 hr scopolamine 0.0139 mg/hr transdermal system (6 sources) Anticholinergic Start: 03-03-2024 End: 08-09-2024 Scopolamine [...] medications for thirty days. 60 actuat tiotropium 0.17017 mg/actuat inhalation spray (7 sources) Anticholinergic Start: 07-20-2023 End: 07-20-2023 take 1.25 ug by inhalation once daily Tiotropium [place] (Spiriva Respimat) 1.25 mcg/actuation mist Discontinued 2 NMA INHALATION DAILY July 20, 2023 12:00am July 20, 2023 8:11am Start: 07-20-2023 End: 07-20-2023 take 1 puff(s) by inhalation once daily Tiotropium [place] (Spiriva Respimat) 1.25 mcg/actuation mist Discontinued 2 PUFF INHALATION DAILY July 19, 2023 11:00pm July 20, 2023 7:11am Problems Active Problems Problem Classification Problem Date Documented Da te Episodic/Chronic Abdominal pain (14 sources) Abdominal pain; Translations: [Unspecified abdominal pain] 12-03-2023 Episodic Asthma (20 sources) Allergic asthma; Translations: [Unspecified asthma, uncomplicated] 06-18-2022 Chronic Comment on above: Allergic Asthma Exac erbation Chronic obstructive pulmonary disease and bronchiectasis (20 sources) Bronchitis; Translations: [Bronchitis, not specified as acute or chronic] 11-18-2017 Episodic Conditions associated with dizziness or vertigo (20 sources) Dizziness; Translations: [Dizziness and giddiness] Episodic Coronary atherosclerosis and other heart disease (20 sources) Angina pectoris; Translations: [Angina pectoris, unspecified] Onset: 4 Chronic Deficiency and other anemia (12 sources) Anemia; Translations: [Anemia, unspecified] 06-10-2024 Episodic [...] Translations: [Essential (primary) hypertension] Onset: 4 Chronic Immunity disorders (1 source) Hypergammaglobulinemia , unspecified; Translations: [Hypergammaglobulinemi a, unspecified] Onset: 5 Chronic Inflammation; infection of eye (except that caused by tuberculosis or sexually transmitteddisease) (9 sources) Acute conjunctivitis of bilateral eyes caused by chemical substance; Translations: [Acute toxic conjunctivitis, bilateral] 04-24-2023 Episodic Intestinal obstruction without hernia (19 sources) Intestinal obstruction co-occurrent and due to decreased peristalsis; Translations: [Ileus, unspecified] 08-08-2021 Episodic Neoplasms of unspecified nature or uncertain behavior (18 sources) Monoclonal gammopathy (clinical); Translations: [Monoclonal gammopathy] Onset: 5 12-21-2024 Chronic Comment on above: M-spike 1.3, IgG Starkey bda light chain.Asymptomatic.Discussed abnormal serum proteins and evaluation.At this time he needs to repeat labs in a few months.Patient agreed. M-spike 1.3, IgG Starkey bda light chain.Asymptomatic.Skeletal survey on 02/09/2025 is negative.R/O Lymphoma. Other bone disease and musculoskeletal deformities (17 sources) Osteopenia; Translations: [Other specified disorders of [...] Onset: 5 Episodic Other connective tissue disease (19 sources) Cramp in lower limb; Translations: [Cramp and spasm] 09-18-2021 Episodic Other connective tissue disease (2 sources) Cramp and spasm; Translations: [Cramp of limb] Episodic Other disorders of stomach and duodenum (7 sources) Delayed gastric emptying; Translations: [Functional dyspepsia] 11-03-2023 Episodic Other disorders of stomach and duodenum (1 source) Functional dyspepsia; Translations: [Dyspepsia and other specified disorders of function of stomach] 11-03-2023 Episodic Other gastrointestinal disorders (19 sources) Dysphagia; Translations: [Dysphagia, unspecified] 12-18-2021 Episodic Other gastrointestinal disorders (19 sources) History of diverticulitis; Translations: [Personal history of other diseases of the digestive system] 09-18-2021 Episodic Other gastrointestinal disorders (19 sources) Constipation; Translations: [Constipation, unspecified] 09-18-2021 Episodic Other gastrointestinal disorders (11 sources) Constipation, unspecified; Translations: [Constipation, unspecified] Episodic Other gastrointestinal disorders (9 sources) Dysphagia, unspecified; Translations: [Dysphagia, unspecified] Episodic Other gastrointestinal disorders (12 sources) Slow transit constipation; Translations: [Slow transit constipation] 07-16-2022 Episodic Other gastrointestinal disorders (4 sources) Slow transit constipation; Translations: [Slow transit constipation] Episodic Other lower respiratory disease (18 sources) Dyspnea on exertion; Translations: [Shortness of breath] 05-15-2022 Episodic Other lower respiratory disease (12 sources) Shortness of breath; Translations: [Shortness of breath] Episodic Other nutritional; endocrine; and metabolic disorders (7 sources) Obesity; Translations: [Obesity, unspecified] 08-28-2023 Chronic Other nutritional; endocrine; and metabolic disorders (1 source) Obesity, unspecified; Translations: [Obesity, unspecified] 08-28-2023 Chronic Regional enteritis and ulcerative colitis (20 sources) Colitis; Translations: [Crohn's disease of large intestine without complications] Chronic Residual codes; unclassified (6 sources) Bilateral lower limb edema; Translations: [Localized edema] 03-03-2024 Episodic Past or Other Problems Problem Classification Problem Date Documented Date Episodic/Chronic Acute bronchitis (17 sources) Acute bronchitis; Translations: [Acute bronchitis, unspecified] Onset: 12-01-2024 12-01-2024 Episodic Cardiac dysrhythmias (20 sources) Palpitations; Translations: [Palpitations] Onset: 09-21-2024 Episodic Nonspecific chest pain (20 sources) Chest pain; Translations: [Chest pain, unspecified] Onset: 07-20-2024 Episodic Other screening for suspected conditions (not mental disorders or infectious disease) (10 sources) Cardiovascular stress test abnormal; Translations: [Abnormal result of other cardiovascular function study] Onset: 09-21-2024 06-29-2024 Episodic Residual codes; unclassified (17 sources) History of cardiac catheterization; Translations: [Other specified postprocedural states] Onset: 01-10-2022 04-03-2022 Episodic Comment on above: LEFT MAIN: Angiograp hically normal; LEFT ANTERIOR DESCENDING ARTERY:PROX LAD: Mild calcification, Mild luminal irregularities; DIAGONAL 1: Proximal - Mild luminal irregularities; CIRCUMFLEX ARTERY:PROX CIRC: Mild luminal irregularitiesMID CIRC: Mild calcification, Mild luminal irregularities; RIGHT CORONARY ARTERY: Angiographically normal; per cardiac cath 01/16/22 Unclassified (10 sources) radial shortening 05-01-2022 Results Test Name Value Interpretation Reference Range Facility Oncology Visit Reporton 03-12 Oncology Visit Report [facility] [place] [address] OFFICE VISIT Date of Service: 03/27/25 1142 MR#: [id number] Acct: [id number] Name: JOSE SANDOVAL Rep #: [id number] : 1950 From: Miles Armendariz MD Age/Sex: 74/M Location: [facility] Status: Signed HPI Subjective Date of Service 03/27/25 Chief Complaint F/u for abnormal serum protein. History of Present Illness 74-year-old man was found to have high Ig G level of 1748 on 12/16/2024, M spike was 1.3 IgG lambda light chain specificity, also had IgA. He was referred for further evaluation and management. Had blood work and skeletal survey. Comes for follow up. He denies weight loss, fever, night sweats or pain. [facility] Medical History Acute bronchitis, unspecified Anemia [...] complaints, except as documented Intake Vital Signs 01/09/25 15:05 03/13/25 13:43 03/27/25 11:45 Height 5 ft 9 in 5 ft 9 in 5 ft 9 in Weight: 86.778 kg BMI 28.2 BP 115/71 Blood Pressure Location Lt brachial Position Sitting Respiration 18 Pulse 90 Pulse Source Monitor Temp 98.9 F Temperature Source Temporal Artery Pulse Oximetry (%) 94 Oxygen Delivery Method room air Intake Accompanied by: Is patient in pain?: No Allergies amoxicillin Allergy (Verified 03/27/25 11:46) Swelling nitroglycerin Allergy (Verified 03/27/25 11:46) SEVERE HYPOTENSION hydrocodone (From Vicodin) Adverse Reaction (Verified 03/27/25 11:46) Other Medications ???Medication ???Instructions ???Recorded ???Confirmed ???Type cholecalciferol (vitamin D3) 25 25 mcg PO DAILY supplement 1 03/27/25 History mcg (1,000 unit) tablet (Vitamin D3) multivitamin 1 tab PO DAILY supplement 08/13/21 03/27/25 History aspirin 81 mg tablet,delayed 81 mg PO QDAY #90 tabs 04/03/22 Rx release (Adult Aspirin Regimen) cetirizine 10 mg tablet (All Day 10 mg PO DAILY #90 tabs 11/06/23 0 03/27/25 Rx Aller (more content not included)... Normal [facility] Complement C3on 03-24-2025 COMP C3 155 mg/dL Normal 82-167 [facility] Comment on above: Performed By: #### L 3100.5600, L3100.5700, L101.9900, L3100.5800, L3130.0010, L501.1400, L100.0100, L504.2610, L3100.3425 ####[facility] [address] [place], [place], [address] Complement C4on 03-24-2025 COMPLEMENT, C4 21 mg/dL Normal 12-38 [facility] Comment on above: Performed By: #### L 3100.5600, L3100.5700, L101.9900, L3100.5800, L3130.0010, L501.1400, L100.0100, L504.2610, L3100.3425 ####[facility] [address] [place], [place], [id number] Complement CH50on 03-24-2025 COMPLEMENT,CH50 > 60 Normal >41 [facility] Comment on above: Result Comment: Age Male Female 1 - 30 days Not Estab. Not Estab. 31 days - 6 months >32 >20 7 months - 17 years >39 >39 >17 years >41 >41 NOTE: The adult (>17 years) reference interval range is used to flag abnormals on this report. If the patient is 17 years old or younger, use the table above to determine out of range values. Performed at: - [facility] [id number] [place] Cableman: Minh Maradiaga PhD, Phone: [phone] Performed By: #### L 3100.5600, L3100.5700, L101.9900, L3100.5800, L3130.0010, L501.1400, L100.0100, L504.2610, L3100.3425 ####[facility] [address] [place], [place], [phone] PENNY + Protein Elect, Serumon 03-24-2025 Albumin [Mass/Vol] 3.6 g/dL Normal 2.9-4.4 [facility] Comment on above: Order Comment: Y Performed By: #### L 3100.5600, L3100.5700, L101.9900, L3100.5800, L3130.0010, L501.1400, L100.0100, L504.2610, L3100.3425 ####[facility] [address] [place], [place], [phone] Albumin/Globulin [Mass ratio] 1.0 {ratio} Normal 0.7-1.7 [facility] Comment on above: Order Comment: Y Performed By: #### L 3100.5600, L3100.5700, L101.9900, L3100.5800, L3130.0010, L501.1400, L100.0100, L504.2610, L3100.3425 ####[facility] [address] [place], [address] [id number]-9-BHAT 0.2 g/dL Normal 0.0-0.4 [facility] Comment on above: Order Comment: Y Performed By: #### L 3100.5600, L3100.5700, L101.9900, L3100.5800, L3130.0010, L501.1400, L100.0100, L504.2610, L3100.3425 ####[facility] [address] [place], [place], [phone] YKYOT-6-KAOV 0.9 g/dL Normal 0.4-1.0 [facility] Comment on above: Order Comment: Y Performed By: #### L 3100.5600, L3100.5700, L101.9900, L3100.5800, L3130.0010, L501.1400, L100.0100, L504.2610, L3100.3425 ####[facility] [address] [place], [place], [id number] BETA GLOBULIN 0.9 g/dL Normal 0.7-1.3 [facility] Comment on above: Order Comment: Y Performed By: #### L 3100.5600, L3100.5700, L101.9900, L3100.5800, L3130.0010, L501.1400, L100.0100, L504.2610, L3100.3425 ####[facility] [address] [place], [place], [phone] GAMMA GLOBULIN 1.6 g/dL Normal 0.4-1.8 [facility] Comment on above: Order Comment: Y Performed By: #### L 3100.5600, L3100.5700, L101.9900, L3100.5800, L3130.0010, L501.1400, L100.0100, L504.2610, L3100.3425 ####[facility] [address] [place], [place], [phone] Globulin (S) [Mass/Vol] 3.7 g/dL Normal 2.2-3.9 [facility] Comment on above: Order Comment: Y Performed By: #### L 3100.5600, L3100.5700, L101.9900, L3100.5800, L3130.0010, L501.1400, L100.0100, L504.2610, L3100.3425 ####[facility] [address] [place], [place], [phone] PENNY RESULT,S Comment Abnormal . [facility] Comment on above: Order Comment: Y Result Comment: Immu nofixation shows IgG monoclonal protein with lambda light chain specificity. IGA APPEARS ASYMMETRICAL Performed By: #### L 3100.5600, L3100.5700, L101.9900, L3100.5800, L3130.0010, L501.1400, L100.0100, L504.2610, L3100.3425 ####[facility] [address] [place], [place], [address] IMMUNOGLOB A QN 69 mg/dL Normal 61-437 [facility] Comment on above: Order Comment: Y Performed By: #### L 3100.5600, L3100.5700, L101.9900, L3100.5800, L3130.0010, L501.1400, L100.0100, L504.2610, L3100.3425 ####[facility] [address] [place], [place], [phone] IMMUNOGLOB G QN 1857 mg/dL High 603-1613 [facility] Comment on above: Order Comment: Y Performed By: #### L 3100.5600, L3100.5700, L101.9900, L3100.5800, L3130.0010, L501.1400, L100.0100, L504.2610, L3100.3425 ####[facility] [address] [place], [place], [phone] IMMUNOGLOB M QN 36 mg/dL Normal 15-143 [facility] Comment on above: Order Comment: Y Performed By: #### L 3100.5600, L3100.5700, L101.9900, L3100.5800, L3130.0010, L501.1400, L100.0100, L504.2610, L3100.3425 ####[facility] [address] [place], [place], [phone] M-Rudolph 1.3 g/dL Abnormal Not Observed [facility] Comment on above: Order Comment: Y Performed By: #### L 3100.5600, L3100.5700, L101.9900, L3100.5800, L3130.0010, L501.1400, L100.0100, L504.2610, L3100.3425 ####[facility] [address] [place], [place], [phone] NOTE: Comment Normal . [facility] Comment on above: Order Comment: Y Result Comment: Prot ein electrophoresis scan will follow via computer, mail, or wool hanker delivery. Performed By: #### L 3100.5600, L3100.5700, L101.9900, L3100.5800, L3130.0010, L501.1400, L100.0100, L504.2610, L3100.3425 ####[facility] [address] [place], [address] Protein [Mass/Vol] 7.3 g/dL Normal 6.0-8.5 [facility] Comment on above: Order Comment: Y Performed By: #### L 3100.5600, L3100.5700, L101.9900, L3100.5800, L3130.0010, L501.1400, L100.0100, L504.2610, L3100.3425 ####[facility] [address] [place], [address] [place] Lambda Light Chainson 03-24-2025 FR KAPPA LT CHN 18.5 mg/L Normal 3.3-19.4 [facility] Comment on above: Performed By: #### L 3100.5600, L3100.5700, L101.9900, L3100.5800, L3130.0010, L501.1400, L100.0100, L504.2610, L3100.3425 ####[facility] [address] [place], [address] FR LAMBDA LT CH 348.4 mg/L Abnormal 5.7-26.3 [facility] Comment on above: Performed By: #### L 3100.5600, L3100.5700, L101.9900, L3100.5800, L3130.0010, L501.1400, L100.0100, L504.2610, L3100.3425 ####[facility] [address] [place], [address] KAPPA/LAMBDA % 0.05 Abnormal 0.26-1.65 [facility] Comment on above: Performed By: #### L 3100.5600, L3100.5700, L101.9900, L3100.5800, L3130.0010, L501.1400, L100.0100, L504.2610, L3100.3425 ####[facility] [address] [place], [address] Absolute lymphocyte countOrd ered By: Miles Armendariz on 03-20-2025 Lymphocytes Auto (Unsp spec) [#/Vol] 2.69 10*3/uL 0.83-4.51 [facility] Absolute neutrophil countOrd ered By: Miles Armendariz on 03-20-2025 Neutrophils (Bld) [#/Vol] 4.1 10*3/uL 2.0-7.7 [facility] Albumin Elph [Mass/Vol]Order ed By: Miles Armendariz on 03-20-2025 Albumin [Mass/Vol] 3.6 g/dL 2.9-4.4 [facility] Anion gap in Serum or Plasma Ordered By: Miles Armendariz on 03-20-2025 Anion gap [Moles/Vol] 13 mmol/L 5-15 [facility] Automated lymphocyte count a s percentage of total leukocytesOrdered By: Miles Armendariz on 03-20-2025 Lymphocytes/100 WBC Auto (Unsp spec) 31.6 % 19-41 [facility] BUN/creatinine ratioOrdered By: Miles Armendariz on 03-20-2025 Urea nitrogen/Creatinine [Mass ratio] 27.6 mg/mg High 10-20 [facility] Comment on above: Previous reported re sult: 27.7 RATIOEdited by: STEPH on 03/20/25:0909 AMENDED REPORT 03/20/25 0909 BUN/CRE previously reported as: 27.7 H RATIO Basophil percentageOrdered B y: Miles Armendariz on 03-20-2025 Basophils/100 WBC (Bld) 0.9 % 0-1 [facility] Bilirubin, totalOrdered By: Miles Armendariz on 03-20-2025 Bilirubin [Mass/Vol] 0.59 mg/dL 0.00-1.30 [facility] Comment on above: Previous reported re sult: 0.56 mg/dLEdited by: STEPH on 03/20/25:0909 AMENDED REPORT 03/20/25908 T BILI previously reported as: 0.56 mg/dL CBC W/Diff, Automatedon 06-0 -2024 Absolute Lymph 2.69 X10 3/uL Normal 0.83-4.51 [facility] Comment on above: Performed By: #### L 3100.5600, L3100.5700, L101.9900, L3100.5800, L3130.0010, L501.1400, L100.0100, L504.2610, L3100.3425 ####[facility] [address] [place], [place], [phone] Absolute Neut 4.1 X10 3/uL Normal 2.0-7.7 [facility] Comment on above: Performed By: #### L 3100.5600, L3100.5700, L101.9900, L3100.5800, L3130.0010, L501.1400, L100.0100, L504.2610, L3100.3425 ####[facility] [address] [place], [address] Basophils/100 WBC (Bld) 0.9 % Normal 0-1 [facility] Comment on above: Performed By: #### L 3100.5600, L3100.5700, L101.9900, L3100.5800, L3130.0010, L501.1400, L100.0100, L504.2610, L3100.3425 ####[facility] [address] [place], [address] Eosinophils/100 WBC (Bld) 10.3 % High 0-5 [facility] Comment on above: Performed By: #### L 3100.5600, L3100.5700, L101.9900, L3100.5800, L3130.0010, L501.1400, L100.0100, L504.2610, L3100.3425 ####[facility] [address] [place], [address] Erythrocyte distribution width (RBC) [Ratio] 12.8 % Normal 11.6-14.6 [facility] Comment on above: Performed By: #### L 3100.5600, L3100.5700, L101.9900, L3100.5800, L3130.0010, L501.1400, L100.0100, L504.2610, L3100.3425 ####[facility] [address] [place], [place], [phone] Hematocrit (Bld) [Volume fraction] 37.6 % Low 40-54 [facility] Comment on above: Performed By: #### L 3100.5600, L3100.5700, L101.9900, L3100.5800, L3130.0010, L501.1400, L100.0100, L504.2610, L3100.3425 ####[facility] [address] [facility] [place], [address] Hemoglobin (Bld) [Mass/Vol] 12.7 g/dL Low 13.0-16.5 [facility] Comment on above: Performed By: #### L 3100.5600, L3100.5700, L101.9900, L3100.5800, L3130.0010, L501.1400, L100.0100, L504.2610, L3100.3425 ####[facility] [address] [place], [place], [phone] IG% 0.500 Normal 0.0-0.9 [facility] Comment on above: Result Comment: IG% - Immature Granulocytes (promyelocytes, myelocytes and metamyelocytes) > 1% indicates that a LEFT SHIFT is Present. Performed By: #### L 3100.5600, L3100.5700, L101.9900, L3100.5800, L3130.0010, L501.1400, L100.0100, L504.2610, L3100.3425 ####[facility] [address] [place], [address] Lymphocytes/100 WBC (Bld) 31.6 % Normal 19-41 [facility] Comment on above: Performed By: #### L 3100.5600, L3100.5700, L101.9900, L3100.5800, L3130.0010, L501.1400, L100.0100, L504.2610, L3100.3425 ####[facility] [address] [place], [address] MCH (RBC) [Entitic mass] 31.4 pg Normal 27.0-32.0 [facility] Comment on above: Performed By: #### L 3100.5600, L3100.5700, L101.9900, L3100.5800, L3130.0010, L501.1400, L100.0100, L504.2610, L3100.3425 ####[facility] [address] [place], [address] MCHC (RBC) [Mass/Vol] 33.8 g/dL Normal 32-36 [facility] Comment on above: Performed By: #### L 3100.5600, L3100.5700, L101.9900, L3100.5800, L3130.0010, L501.1400, L100.0100, L504.2610, L3100.3425 ####[facility] [address] [place], [address] MCV (RBC) [Entitic vol] 93.1 fL Normal 80-94 [facility] Comment on above: Performed By: #### L 3100.5600, L3100.5700, L101.9900, L3100.5800, L3130.0010, L501.1400, L100.0100, L504.2610, L3100.3425 ####[facility] [address] [place], [address] Monocytes/100 WBC (Bld) 8.2 % Normal 0-10 [facility] Comment on above: Performed By: #### L 3100.5600, L3100.5700, L101.9900, L3100.5800, L3130.0010, L501.1400, L100.0100, L504.2610, L3100.3425 ####[facility] [address] [place], [address] Neutrophils/100 WBC (Bld) 48.5 % Normal 47-70 [facility] Comment on above: Performed By: #### L 3100.5600, L3100.5700, L101.9900, L3100.5800, L3130.0010, L501.1400, L100.0100, L504.2610, L3100.3425 ####[facility] [address] [place], [place], [phone]) Nucleated RBC (Bld) [#/Vol] 0 10*3/uL Normal 0-5 [facility] Comment on above: Performed By: #### L 3100.5600, L3100.5700, L101.9900, L3100.5800, L3130.0010, L501.1400, L100.0100, L504.2610, L3100.3425 ####[facility] [address] [place], [place], [phone]) Platelet mean volume (Bld) [Entitic vol] 9.3 fL Normal 6.2-12.0 [facility] Comment on above: Performed By: #### L 3100.5600, L3100.5700, L101.9900, L3100.5800, L3130.0010, L501.1400, L100.0100, L504.2610, L3100.3425 ####[facility] [address] [place], [address] Platelets (Bld) [#/Vol] 449 10*3/uL Normal 150-450 [facility] Comment on above: Performed By: #### L 3100.5600, L3100.5700, L101.9900, L3100.5800, L3130.0010, L501.1400, L100.0100, L504.2610, L3100.3425 ####[facility] [address] [place], [place], [phone]) RBC (Bld) [#/Vol] 4.04 10*6/uL Low 4.6-6.2 [facility] Comment on above: Performed By: #### L 3100.5600, L3100.5700, L101.9900, L3100.5800, L3130.0010, L501.1400, L100.0100, L504.2610, L3100.3425 ####[facility] [address] [place], [place], [phone]) RDW SD 43.7 fl Normal 35.1-43.9 [facility] Comment on above: Performed By: #### L 3100.5600, L3100.5700, L101.9900, L3100.5800, L3130.0010, L501.1400, L100.0100, L504.2610, L3100.3425 ####[facility] [address] [place], [place], [phone](270) WBC (Bld) [#/Vol] 8.5 10*3/uL Normal 4.4-11.0 [facility] Comment on above: Performed By: #### L 3100.5600, L3100.5700, L101.9900, L3100.5800, L3130.0010, L501.1400, L100.0100, L504.2610, L3100.3425 ####[facility] [address] [place], [address] CRPon 03-20-2025 C-REACTIVE PROT 3.09 mg/L High 0.0-3.0 [facility] Comment on above: Performed By: #### L 500.4050, L503.0106, L501.6710 ####[facility] [address] [place], [address] Carbon dioxide, total [Moles /volume] in Central venous bloodOrdered By: Miles Armendariz on 03-20-2025 CO2 [Moles/Vol] 23.0 mmol/L 21.0-32.0 [facility] Comment on above: Previous reported re sult: 23.7 mmol/LEdited by: STEPH on 03/20/25:0909 AMENDED REPORT 03/20/25908 CO2 previously reported as: 23.7 mmol/L Chloride assayOrdered By: Maude Armendariz on 03-20-2025 Chloride [Moles/Vol] 102 mmol/L 98-108 [facility] Comprehensive Metabolic Prof ilon 03-20-2025 Albumin [Mass/Vol] 4.2 g/dL Normal 3.4-4.8 [facility] Comment on above: Result Comment: AMENDED REPORT 03/20/25908 ALB previously reported as: 4.3 g/dL Performed By: #### L 500.4050, L503.0106, L501.6710 ####[facility] [address] [place], [address] Albumin/Globulin [Mass ratio] 1.2 {ratio} Normal 0.9-2.4 [facility] Comment on above: Performed By: #### L 500.4050, L503.0106, L501.6710 ####[facility] [address] [place], [address] ALK PHOS 88 U/L Normal 40-129 [facility] Comment on above: Performed By: #### L 500.4050, L503.0106, L501.6710 ####[facility] [address] [place], [address] ALT [Catalytic activity/Vol] 16 U/L Normal <=46 [facility] Comment on above: Performed By: #### L 500.4050, L503.0106, L501.6710 ####[facility] [address] [place], [address] AST [Catalytic activity/Vol] 21 U/L Normal <=37 [facility] Comment on above: Result Comment: AMENDED REPORT 03/20/25908 AST previously reported as: 19 U/L Performed By: #### L 500.4050, L503.0106, L501.6710 ####[facility] [address] [place], [address] Bilirubin [Mass/Vol] 0.59 mg/dL Normal 0.00-1.30 [facility] Comment on above: Result Comment: AMENDED REPORT 03/20/25908 T BILI previously reported as: 0.56 mg/dL Performed By: #### L 500.4050, L503.0106, L501.6710 ####[facility] [address] [place], [address] BUN/CRE 27.6 RATIO High 10-20 [facility] Comment on above: Result Comment: AMENDED REPORT 03/20/25908 BUN/CRE previously reported as: 27.7 H RATIO Performed By: #### L 500.4050, L503.0106, L501.6710 ####[facility] [address] [place], [address] Calcium [Mass/Vol] 9.8 mg/dL Normal 7.6-11.0 [facility] Comment on above: Result Comment: AMENDED REPORT 03/20/25908 CA previously reported as: 9.7 mg/dL Performed By: #### L 500.4050, L503.0106, L501.6710 ####[facility] [address] [place], [address] Chloride [Moles/Vol] 102 mmol/L Normal 98-108 [facility] Comment on above: Performed By: #### L 500.4050, L503.0106, L501.6710 ####[facility] [address] [place], [address] CO2 [Moles/Vol] 23.0 mmol/L Normal 21.0-32.0 [facility] Comment on above: Result Comment: AMENDED REPORT 03/20/25908 CO2 previously reported as: 23.7 mmol/L Performed By: #### L 500.4050, L503.0106, L501.6710 ####[facility] [address] [place], [address] Creatinine [Mass/Vol] 1.26 mg/dL High 0.70-1.20 [facility] Comment on above: Result Comment: AMENDED REPORT 03/20/25908 CREAT,SERUM previously reported as: 1.29 H mg/dL Performed By: #### L 500.4050, L503.0106, L501.6710 ####[facility] [address] [place], [address] GAP 13 Normal 5-15 [facility] Comment on above: Performed By: #### L 500.4050, L503.0106, L501.6710 ####[facility] [address] [place], [address] Globulin (S) [Mass/Vol] 3.5 g/dL Normal 2.2-4.2 [facility] Comment on above: Result Comment: AMENDED REPORT 03/20/25908 GLOB previously reported as: 3.6 g/dL Performed By: #### L 500.4050, L503.0106, L501.6710 ####[facility] [address] [place], [address] Glucose [Mass/Vol] 157 mg/dL High 70-99 [facility] Comment on above: Result Comment: AMENDED REPORT 03/20/25908 GLU previously reported as: 161 H mg/dL Performed By: #### L 500.4050, L503.0106, L501.6710 ####[facility] [address] [place], [address] Potassium [Moles/Vol] 4.7 mmol/L Normal 3.3-5.1 [facility] Comment on above: Performed By: #### L 500.4050, L503.0106, L501.6710 ####[facility] [address] [place], [address] Sodium [Moles/Vol] 138 mmol/L Normal 133-145 [facility] Comment on above: Result Comment: AMENDED REPORT 03/20/25908 NA previously reported as: 137 mmol/L Performed By: #### L 500.4050, L503.0106, L501.6710 ####[facility] [address] [place], [address] T PROT 7.8 g/dL Normal 5.9-8.4 [facility] Comment on above: Result Comment: AMENDED REPORT 03/20/25908 T PROT previously reported as: 7.9 g/dL Performed By: #### L 500.4050, L503.0106, L501.6710 ####[facility] [address] [place], [address] Urea nitrogen [Mass/Vol] 35 mg/dL High 4-19 [facility] Comment on above: Result Comment: AMENDED REPORT 03/20/25908 BUN previously reported as: 36 H mg/dL Performed By: #### L 500.4050, L503.0106, L501.6710 ####[facility] [address] [place], [address] Eosinophil percentageOrdered By: Miles Armendariz on 03-20-2025 Eosinophils/100 WBC (Bld) 10.3 % High 0-5 [facility] Erythrocyte Sed Rateon 03-20 SED RATE 15 mm/hr Normal 0-20 [facility] Comment on above: Performed By: #### L 3100.5600, L3100.5700, L101.9900, L3100.5800, L3130.0010, L501.1400, L100.0100, L504.2610, L3100.3425 ####[facility] [address] [place], [address] Erythrocyte distribution wid th ratioOrdered By: Miles Armendariz on 03-20-2025 Erythrocyte distribution width (RBC) [Ratio] 12.8 % 11.6-14.6 [facility] Erythrocyte distribution wid th standard deviationOrdered By: [place] Kala on 03-20-2025 Erythrocyte distribution width (RBC) [Ratio] 43.7 fl 35.1-43.9 [facility] Erythrocyte sedimentation ra teOrdered By: Miles Armendariz on 03-20-2025 ESR (Bld) [Velocity] 15 mm/h 0-20 [facility] Glomerular filtration rate ( GFR) estimation/1.73 sq m using serum, plasma, or whole bOrdered By: Miles Armendariz on 03-20-2025 GFR/1.73 sq M.predicted among non-blacks MDRD (S/P/Bld) [Vol rate/Area] 59 mL/min/{1.73_m2} Low >60 [facility] Comment on above: mL/min/1.73m2 CKD-EP I Creatinine Equation (2020) Hematocrit Auto (Bld) [Volum e fraction]Ordered By: Miles Armendariz on 03-20-2025 Hematocrit (Bld) [Volume fraction] 37.6 % Low 40-54 [facility] Hemoglobin measurementOrdere d By: Miles Armendraiz on 03-20-2025 Hemoglobin (Bld) [Mass/Vol] 12.7 g/dL Low 13.0-16.5 [facility] Immature granulocytes/100 WB C Auto (Bld)Ordered By: Miles Armendariz on 06-09-2025 Immature granulocytes/100 WBC (Bld) 0.500 % 0.0-0.9 [facility] Comment on above: IG% - Immature Granu locytes (promyelocytes, myelocytes and metamyelocytes) > 1% indicates that a LEFT SHIFT is Present. Interpretation of serum or p lasma protein pattern by immunofixation (narrative resultOrdered By: Miles Armendariz on 03-20-2025 Protein Fractions Immunofixation Yony [Interp] 1.3 g/dL High Not Observed [facility] LDHon 03-20-2025 LDH 152 U/L Normal 87-241 [facility] Comment on above: Order Comment: 1 Performed By: #### L 3100.5600, L3100.5700, L101.9900, L3100.5800, L3130.0010, L501.1400, L100.0100, L504.2610, L3100.3425 ####[facility] [address] [place], [address] Laboratory - Chemistry and C hemistry - challengeOrdered By: Miles Armendariz on 03-20-2025 AST [Catalytic activity/Vol] 21 U/L <38 [facility] Comment on above: Previous reported re sult: 19 U/LEdited by: STEPH on 03/20/25:0909 AMENDED REPORT 03/20/25 0909 AST previously reported as: 19 U/L Lactate dehydrogenase (LDH) measurementOrdered By: Miles Armendariz on 03-20-2025 LDH [Catalytic activity/Vol] 152 U/L 87-241 [facility] MCV (mean corpuscular volume ) determinationOrdered By: Miles Armendariz on 03-20-2025 MCV (RBC) [Entitic vol] 93.1 fL 80-94 [facility] Mean corpuscular hemoglobin (MCH) determinationOrdered By: Miles Armendariz on 03-20-2025 MCH (RBC) [Entitic mass] 31.4 pg 27.0-32.0 [facility] Mean corpuscular hemoglobin concentration (MCHC) determinationOrdered By: Miles Armendariz on 03-20-2025 MCHC (RBC) [Mass/Vol] 33.8 g/dL 32-36 [facility] Mean platelet volume determi nationOrdered By: Miles Armendariz on 03-20-2025 Platelet mean volume (Bld) [Entitic vol] 9.3 fL 6.2-12.0 [facility] Monocyte percentageOrdered B y: Miles Armendariz on 03-20-2025 Monocytes/100 WBC (Bld) 8.2 % 0-10 [facility] Neutrophil percentageOrdered By: Miles Armendariz on 03-20-2025 Neutrophils/100 WBC (Bld) 48.5 % 47-70 [facility] No Panel InformationOrdered By: Miles Armendariz on 03-20-2025 Addendum Document Comment . [facility] Comment on above: Protein electrophore sis scan will follow via computer,mail, or wool hanker delivery. Nucleated red blood cell per centageOrdered By: Miles Armendariz on 03-20-2025 Nucleated RBC/100 WBC (Bld) [Ratio] 0 % 0-5 [facility] Platelet countOrdered By: Maude Armendariz on 03-20-2025 Platelets (Bld) [#/Vol] 449 10*3/uL 150-450 [facility] Potassium measurement (mass/ volume)Ordered By: Miles Armendariz on 03-20-2025 Potassium (Unsp spec) [Mass/Vol] 4.7 mmol/L 3.3-5.1 [facility] RBC Auto (Bld) [#/Vol]Ordere d By: Miles Armendariz on 03-20-2025 RBC (Bld) [#/Vol] 4.04 10*6/uL Low 4.6-6.2 [facility] Serum creatinine measurement (mass/volume)Ordered By: Miles Armendariz on 03-20-2025 Creatinine [Mass/Vol] 1.26 mg/dL High 0.70-1.20 [facility] Comment on above: Previous reported re sult: 1.29 mg/dLEdited by: STEPH on 03/20/25:908 AMENDED REPORT 03/20/25908 CREAT,SERUM previously reported as: 1.29 H mg/dL Serum globulin measurement ( mass/volume)Ordered By: Miles Armendariz on 03-20-2025 Globulin (S) [Mass/Vol] 3.7 g/dL 2.2-3.9 [facility] Serum glucose measurement (m ass/volume)Ordered By: Miles Armendariz on 03-20-2025 Glucose [Mass/Vol] 157 mg/dL High 70-99 [facility] Comment on above: Previous reported re sult: 161 mg/dLEdited by: Portal ProfesS on 03/20/25:0909 AMENDED REPORT 03/20/25908 GLU previously reported as: 161 H mg/dL Serum immunoglobulin kappa l ight chains/immunoglobulin lambda light chains mass ratioOrdered By: Miles Armendariz on 03-20-2025 Immunoglobulin light chains.kappa/Immunoglobul in light chains.lambda (S) [Mass ratio] 0.05 Low 0.26-1.65 [facility] Serum or plasma C reactive p rotein measurement (mass/volume)Ordered By: Miles Armendariz on 03-20-2025 CRP [Mass/Vol] 3.09 mg/L High 0.0-3.0 [facility] Serum or plasma IgA measurem ent (mass/volume)Ordered By: Miles Armendariz on 03-20-2025 IgA [Mass/Vol] 69 mg/dL 61-437 [facility] Serum or plasma IgG measurem ent (mass/volume)Ordered By: Miles Armendariz on 03-20-2025 IgG [Mass/Vol] 1857 mg/dL High 603-1613 [facility] Serum or plasma alanine delgado otransferase (ALT) measurementOrdered By: Miles Armendariz on 03-20-2025 ALT [Catalytic activity/Vol] 16 U/L <47 [facility] Serum or plasma albumin jhon urement (mass/volume)Ordered By: Miles Armendariz on 03-20-2025 Albumin [Mass/Vol] 4.2 g/dL 3.4-4.8 [facility] Comment on above: Previous reported re sult: 4.3 g/dLEdited by: Portal ProfesS on 03/20/25:0909 AMENDED REPORT 03/20/25908 ALB previously reported as: 4.3 g/dL Serum or plasma albumin/glob ulin mass ratioOrdered By: Miles Armendariz on 03-20-2025 Albumin/Globulin [Mass ratio] 1.2 {ratio} 0.9-2.4 [facility] Serum or plasma alkaline joe sphatase measurementOrdered By: Miles Aremndariz on 03-20-2025 ALP [Catalytic activity/Vol] 88 U/L 40-129 [facility] Serum or plasma alpha 1 glob ulin measurement by electrophoresis (mass/volume)Ordered By: Miles Armendariz on 03-20-2025 Alpha 1 globulin Elph [Mass/Vol] 0.2 g/dL 0.0-0.4 [facility] Alpha 1 globulin Elph [Mass/Vol] 0.9 g/dL 0.4-1.0 [facility] Serum or plasma beta globuli n measurement by electrophoresis (mass/volume)Ordered By: Miles Armendariz on 03-20-2025 Beta globulin Elph [Mass/Vol] 0.9 g/dL 0.7-1.3 [facility] Serum or plasma calcium jhon urement (mass/volume)Ordered By: Miles Armendariz on 03-20-2025 Calcium [Mass/Vol] 9.8 mg/dL 7.6-11.0 [facility] Comment on above: Previous reported re sult: 9.7 mg/dLEdited by: STEPH on 03/20/25:0909 AMENDED REPORT 03/20/25 0909 CA previously reported as: 9.7 mg/dL Serum or plasma complement C 4 measurement (mass/volume)Ordered By: Miles Armendariz on 03-20-2025 Complement C4 [Mass/Vol] 21 mg/dL 12-38 [facility] Serum or plasma gamma globul in measurement by electrophoresis (mass/volume)Ordered By: Miles Armendariz on 03-20-2025 Gamma globulin Elph [Mass/Vol] 1.6 g/dL 0.4-1.8 [facility] Serum or plasma immunoelectr ophoresis interpretation (nominal result)Ordered By: Miles Armendariz on 03-20-2025 Interpretation IEP [Interp] Comment High . [facility] Comment on above: Immunofixation shows IgG monoclonal protein with lambdalight chain specificity.IGA APPEARS ASYMMETRICAL Serum or plasma immunoglobul in kappa light chains measurement (mass/volume)Ordered By: Miles Armendariz on 03-20-2025 Immunoglobulin light chains.kappa [Mass/Vol] 18.5 mg/L 3.3-19.4 [facility] Serum or plasma protein jhon urement (mass/volume)Ordered By: Miles Armendariz on 03-20-2025 Protein [Mass/Vol] 7.3 g/dL 6.0-8.5 [facility] Serum or plasma urea nitroge n measurement (mass/volume)Ordered By: Miles Armendariz on 03-20-2025 Urea nitrogen [Mass/Vol] 35 mg/dL High 4-19 [facility] Comment on above: Previous reported re sult: 36 mg/dLEdited by: STEPH on 03/20/25:0909 AMENDED REPORT 03/20/25908 BUN previously reported as: 36 H mg/dL Serum or plasma uric acid me asurement (mass/volume)Ordered By: Miles Armendariz on 03-20-2025 Urate [Mass/Vol] 6.0 mg/dL 3.5-7.2 [facility] Comment on above: The drugs N-Acetylcy steine and Metamizole may falsely depress this assay. Sodium levelOrdered By: Robel Armendariz on 03-20-2025 Sodium [Moles/Vol] 138 mmol/L 133-145 [facility] Comment on above: Previous reported re sult: 137 mmol/LEdited by: STEPH on 03/20/25:0909 AMENDED REPORT 03/20/25908 NA previously reported as: 137 mmol/L Total proteinOrdered By: To Armendariz on 03-20-2025 Protein [Mass/Vol] 7.8 g/dL 5.9-8.4 [facility] Comment on above: Previous reported re sult: 7.9 g/dLEdited by: STEPH on 03/20/25:0909 AMENDED REPORT 03/20/25908 T PROT previously reported as: 7.9 g/dL Uric Acidon 03-20-2025 URIC 6.0 mg/dL Normal 3.5-7.2 [facility] Comment on above: Result Comment: The drugs N-Acetylcysteine and Metamizole may falsely depress this assay. Performed By: #### L 3100.5600, L3100.5700, L101.9900, L3100.5800, L3130.0010, L501.1400, L100.0100, L504.2610, L3100.3425 ####[facility] [address] [place], [address] Vitamin B12on 03-20-2025 Cobalamin (Vitamin B12) [Mass/Vol] 388 pg/mL Normal 180-914 [facility] Comment on above: Performed By: #### L 500.4050, L503.0106, L501.6710 ####[facility] [address] [place], [address] Vitamin B12 ser/plasOrdered By: Miles Armendariz on 03-20-2025 Cobalamin (Vitamin B12) [Mass/Vol] 388 pg/mL 180-914 [facility] White blood cell (WBC) count Ordered By: Miles Armendariz on 03-20-2025 WBC (Bld) [#/Vol] 8.5 10*3/uL 4.4-11.0 [facility] Internal Medicine Office Vis iton 03-13-2025 Internal Medicine Office Visit [facility] [address] [place] [address] [place] [address] OFFICE VISIT Date of Service: 03/13/25 MR#: [id number] Acct: [id number] Name: JOSE SANDOVAL Rep #: [id number] : 1950 Provider: TYSON cardenas Age/Sex: 74/M Location: [facility] Status: Signed Intake Vital Signs 01/09/25 15:05 [...] air Intake Visit Reasons: ACUTE-DEEP COUGH, Cough Manager Systems Required: No Is patient in pain?: No [...] coughing so hard. Denies pain on inspiration. [facility] Medical History Acute bronchitis, unspecified Anemia [...] for complaints (more content not included)... Normal [facility] Bone Survey Comp(Axial Appen d)on 02-09-2025 Bone Survey Comp(Axial Append) [facility] Imaging Services [address] [place] [address] Bone Survey Comp(Axial Append) MR#: [id number] Acct: [id number] Name: JOSE SANDOVAL Rep #: [id number] : 1950 M 74 From: Miquel Strong MD PCP: Dr. Timmy Floyd MD Status: REG CLI Study: Bone Survey Comp(Axial Append) Date of Exam: 0 02/09/25 Exam# [id number] Ordering Dr: Miles Armendariz MD PROCEDURE: BONE [...] Append) IMPRESSION: NEGATIVE BONE SURVEY. Reading Location: [facility] CC: Dr. Timmy Floyd MD; Dr. Miles Armendariz MD Firer Kiln: Signed Normal [facility] Oncology Visit Reporton 12-12 Oncology Visit Report [facility] [address] [place] [address] OFFICE VISIT Date of Service: 01/09/25 1459 MR#: [id number] Acct: [id number] Name: JOSE SANDOVAL Rep #: [id number] : 1950 From: Miles Armendariz MD Age/Sex: 74/M [place] [facility] [place]: Signed [...] weight loss, fever, night sweats or pain. [facility] Medical History (Updated 01/09/25 @ 17:10 [...] Allergy (ce (more content not included)... Normal [facility] Internal Medicine Office Vis cris 01-02-2025 Internal Medicine Office Visit [facility] [address] [place] [address] [place] [address] OFFICE VISIT Date of Service: 01/02/25 MR#: [id number] Acct: [id number] Name: JOSE SANDOVAL Rep #: [id number] : 1950 Provider: Dr. Timmy welch MD Age/Sex: 74/M Location: [facility] Status: Signed Intake Vital Signs 11/11/24 09:50 [...] chk up Chief Complaint: fu chronic conditions Manager Systems Required: No Is patient in pain?: No [...] tabs 11/06/23 0 01/02/25 Rx Allergy (cetirizine)) compress.amanda pendleton e,reg,lrg #2 ea 03/03/24 01/02/25 Rx amlodipine [...] Chief Complaint: fu chronic conditions Details: JOSE SANDOVAL, is a 74 M [...] sensitivity E (more content not included)... Normal [facility] Laboratory - Hematology and Cell countsOrdered By: Timmy Floyd on 01-02-2025 HbA1c (Bld) [Mass fraction] 6.7 % High 4.2-6.3 [facility] Bone density reportOrdered B y: Angel Torres on 12-29-2024 Study report Skeletal system DXA [facility] Imaging Services [address] [place], [place] [address] Dexa Bone Density Study MR#: [id number] Acct: [id number] Name: JOSE SANDOVAL Rep #: [id number] : 1950 M 74 From: Azam Torres MD PCP: Dr. Timmy Floyd MD Status: R EG CLI Study:Dexa Bone Density Study Date of Exam: 12/29/24 Exam# [id number] Ordering Dr: Nathanael Jackson PA PROCEDURE: DEXA [...] with a low fracture risk. Reading Location: [place] [address] CC: Dr. Timmy Floyd MD; SUJATA Alvarenga ~ Firer Kiln: Signed [facility] Dexa Bone Density Studyon Dexa Bone Density Study [facility] Imaging Services [address] [place], [place] [address] Dexa Bone Density Study MR#: [id number] Acct: [id number] Name: JOSE SANDOVAL Rep #: [id number] : 1950 74 From: Angel greene MD PCP: Dr. Timmy Floyd MD Status: REG CLI Study: Dexa Bone Density Study Date of Exam: 12/29/24 Exam# [id number] Ordering Dr: Sean Jackson PROCEDURE: DEXA BONE DENSITY STUDY 12/29/2024 REASON [...] with a low fracture risk. Reading Location: [place] [address] CC: Dr. Timmy Floyd MD; SUJATA Alvarenga Firer Kiln: Signed Normal [facility] Celiac Disease Profileon ENDOMYSIAL IGA Negative Normal Negative [facility] Comment on above: Performed By: #### L 503.6150, L504.2610, L100.9950, L100.0100, L3410.2400, L3100.3425, L503.6550 ####[facility] [address] [place], [address] tTG IGA <2 Normal 0-3 [facility] Comment on above: Result Comment: Nega tive 0 - 3 Weak Positive 4 - 10 Positive >10 Tissue Transglutaminase (tTG) has been identified as the endomysial antigen. Studies have demonstr- ated that endomysial IgA antibodies have over 99% specificity for gluten sensitive enteropathy. Performed By: #### L 503.6150, L504.2610, L100.9950, L100.0100, L3410.2400, L3100.3425, L503.6550 ####[facility] [address] [place], [address] PENNY + Protein Elect, Serumon 12-21-2024 Albumin [Mass/Vol] 4.0 g/dL Normal 2.9-4.4 [facility] Comment on above: Order Comment: N Performed By: #### L 503.6150, L504.2610, L100.9950, L100.0100, L3410.2400, L3100.3425, L503.6550 ####[facility] [address] [place], [address] Albumin/Globulin [Mass ratio] 1.2 {ratio} Normal 0.7-1.7 [facility] Comment on above: Order Comment: N Performed By: #### L 503.6150, L504.2610, L100.9950, L100.0100, L3410.2400, L3100.3425, L503.6550 ####[facility] [address] [place], [address] NUCYI-2-NNTE 0.2 g/dL Normal 0.0-0.4 [facility] Comment on above: Order Comment: N Performed By: #### L 503.6150, L504.2610, L100.9950, L100.0100, L3410.2400, L3100.3425, L503.6550 ####[facility] [address] [place], [address] ULQNH-1-HZWN 0.8 g/dL Normal 0.4-1.0 [facility] Comment on above: Order Comment: N Performed By: #### L 503.6150, L504.2610, L100.9950, L100.0100, L3410.2400, L3100.3425, L503.6550 ####[facility] [address] [place], [address] BETA GLOBULIN 0.9 g/dL Normal 0.7-1.3 [facility] Comment on above: Order Comment: N Performed By: #### L 503.6150, L504.2610, L100.9950, L100.0100, L3410.2400, L3100.3425, L503.6550 ####[facility] [address] [place], [address] GAMMA GLOBULIN 1.6 g/dL Normal 0.4-1.8 [facility] Comment on above: Order Comment: N Performed By: #### L 503.6150, L504.2610, L100.9950, L100.0100, L3410.2400, L3100.3425, L503.6550 ####[facility] [address] [place], [address] Globulin (S) [Mass/Vol] 3.6 g/dL Normal 2.2-3.9 [facility] Comment on above: Order Comment: N Performed By: #### L 503.6150, L504.2610, L100.9950, L100.0100, L3410.2400, L3100.3425, L503.6550 ####[facility] [address] [place], [address] PENNY RESULT,S Comment Abnormal . [facility] Comment on above: Order Comment: N Result Comment: Immu nofixation shows IgG monoclonal protein with lambda light chain specificity. PENNY also shows an asymmetrical IgA suggestive of a monoclonal protein. Performed By: #### L 503.6150, L504.2610, L100.9950, L100.0100, L3410.2400, L3100.3425, L503.6550 ####[facility] [address] [place], [address] IMMUNOGLOB A QN 68 mg/dL Normal 61-437 [facility] Comment on above: Order Comment: N Performed By: #### L 503.6150, L504.2610, L100.9950, L100.0100, L3410.2400, L3100.3425, L503.6550 ####[facility] [address] [place], [address] IMMUNOGLOB G QN 1748 mg/dL High 603-1613 [facility] Comment on above: Order Comment: N Performed By: #### L 503.6150, L504.2610, L100.9950, L100.0100, L3410.2400, L3100.3425, L503.6550 ####[facility] [address] [place], [place], [address] IMMUNOGLOB M QN 38 mg/dL Normal 15-143 [facility] Comment on above: Order Comment: N Performed By: #### L 503.6150, L504.2610, L100.9950, L100.0100, L3410.2400, L3100.3425, L503.6550 ####[facility] [address] [place], [place], [address] M-Rudolph 1.3 g/dL Abnormal Not Observed [facility] Comment on above: Order Comment: N Performed By: #### L 503.6150, L504.2610, L100.9950, L100.0100, L3410.2400, L3100.3425, L503.6550 ####[facility] [address] [place], [place], [address] NOTE: Comment Normal . [facility] Comment on above: Order Comment: N Result Comment: Prot ein electrophoresis scan will follow via computer, mail, or wool hanker delivery. Performed at: [address] [id number] [employer] Cableman: Minh Maradiaga PhD, Phone: [phone] Performed By: #### L 503.6150, L504.2610, L100.9950, L100.0100, L3410.2400, L3100.3425, L503.6550 ####[facility] [address] [place], [place], [address] Protein [Mass/Vol] 7.6 g/dL Normal 6.0-8.5 [facility] Comment on above: Order Comment: N Performed By: #### L 503.6150, L504.2610, L100.9950, L100.0100, L3410.2400, L3100.3425, L503.6550 ####[facility] [address] [place], [address] Internal Medicine Office Vis iton 12-21-2024 Internal Medicine Office Visit [facility] [address] [place] [address] OFFICE VISIT Date of Service: 12/21/24 MR#: [id number] Acct: [id number] Name: JOSE SANDOVAL Rep #: [id number] : 1950 Provider: SUJATA Alvarenga Age/Sex: 74/M Location: [facility] Status: Signed Intake Vital Signs 12/01/24 14:15 12/21/24 15:44 Height 5 ft 9 in 5 ft 9 in Weight: 191 lb BMI 28.2 BP 124/78 H Blood Pressure Location Lt brachial Position Sitting Respiration 14 Pulse 84 Pulse Source Monitor Temp 98 F Temp Source Temporal Pulse Oximetry (%) 98 Oxygen Delivery Method room air Intake Visit Reasons: FU ON INHALER Manager Systems Required: No Is patient in pain?: No [...] tabs 11/06/23 0 12/21/24 Rx Allergy (cetirizine)) compress.helder,amanda e,reg,lrg #2 ea 03/03/24 12/21/24 Rx amlodipine 5 [...] on if he takes it or not. [facility] Medical History Acute bronchitis, unspecified Anemia [...] not h (more content not included)... Normal [facility] Absolute lymphocyte countOrd ered By: Robert Flores on 12-16-2024 Lymphocytes Auto (Unsp spec) [#/Vol] 1.84 10*3/uL 0.83-4.51 [facility] Absolute neutrophil countOrd ered By: Robert Flores on 12-16-2024 Neutrophils (Bld) [#/Vol] 4.0 10*3/uL 2.0-7.7 [facility] Addendum DocumentOrdered By: Robert Flores on 12-16-2024 Serum Immunofixation Comments Comment . [facility] Comment on above: Protein electrophore sis scan will follow via computer,mail, or wool hanker delivery.Performed at: [facility] [address] [id number] Director: Minh Maradiaga PhD, Phone: [phone] Albumin Elph [Mass/Vol]Order ed By: Robert Flores on 12-16-2024 Albumin [Mass/Vol] 4.0 g/dL 2.9-4.4 [facility] Alpha 1 globulin Elph [Mass/ Vol]Ordered By: Robertalda Flores on 12-16-2024 Btngd-8-Bmaxsxsig (PENNY) 0.2 g/dL 0.0-0.4 [facility] Nmjxu-5-Pmqdzgmot (PENNY) 0.8 g/dL 0.4-1.0 [facility] Automated lymphocyte count a s percentage of total leukocytesOrdered By: Robertalda Flores on 12-16-2024 Lymphocytes/100 WBC Auto (Unsp spec) 26.8 % 19-41 [facility] Basophil percentageOrdered B y: Robertalda Flores on 12-16-2024 Basophils/100 WBC (Bld) 0.7 % 0-1 [facility] Beta globulin Elph [Mass/Vol ]Ordered By: Robertkathleen Flores on 12-16-2024 Beta-Globulins (PENNY) 0.9 g/dL 0.7-1.3 [facility] CBC W/Diff, Automatedon Absolute Lymph 1.84 X10 3/uL Normal 0.83-4.51 [facility] Comment on above: Performed By: #### L 503.6150, L504.2610, L100.9950, L100.0100, L3410.2400, L3100.3425, L503.6550 #### [facility] [address] [place], [address] Absolute Neut 4.0 X10 3/uL Normal 2.0-7.7 [facility] Comment on above: Performed By: #### L 503.6150, L504.2610, L100.9950, L100.0100, L3410.2400, L3100.3425, L503.6550 #### [facility] [address] [place], [address] Basophils/100 WBC (Bld) 0.7 % Normal 0-1 [facility] Comment on above: Performed By: #### L 503.6150, L504.2610, L100.9950, L100.0100, L3410.2400, L3100.3425, L503.6550 #### [facility] [address] [place], [address] Eosinophils/100 WBC (Bld) 6.0 % High 0-5 [facility] Comment on above: Performed By: #### L 503.6150, L504.2610, L100.9950, L100.0100, L3410.2400, L3100.3425, L503.6550 #### [facility] [address] [place], [address] Erythrocyte distribution width (RBC) [Ratio] 12.9 % Normal 11.6-14.6 [facility] Comment on above: Performed By: #### L 503.6150, L504.2610, L100.9950, L100.0100, L3410.2400, L3100.3425, L503.6550 #### [facility] [address] [place], [address] Hematocrit (Bld) [Volume fraction] 41.2 % Normal 40-54 [facility] Comment on above: Performed By: #### L 503.6150, L504.2610, L100.9950, L100.0100, L3410.2400, L3100.3425, L503.6550 #### [facility] [address] [place], [address] Hemoglobin (Bld) [Mass/Vol] 13.7 g/dL Normal 13.0-16.5 [facility] Comment on above: Performed By: #### L 503.6150, L504.2610, L100.9950, L100.0100, L3410.2400, L3100.3425, L503.6550 #### [facility] [address] [place], [address] IG% 0.300 Normal 0.0-0.9 [facility] Comment on above: Result Comment: IG% - Immature Granulocytes (promyelocytes, myelocytes and metamyelocytes) > 1% indicates that a LEFT SHIFT is Present. Performed By: #### L 503.6150, L504.2610, L100.9950, L100.0100, L3410.2400, L3100.3425, L503.6550 #### [facility] [address] [place], [address] Lymphocytes/100 WBC (Bld) 26.8 % Normal 19-41 [facility] Comment on above: Performed By: #### L 503.6150, L504.2610, L100.9950, L100.0100, L3410.2400, L3100.3425, L503.6550 #### [facility] [address] [place], [address] MCH (RBC) [Entitic mass] 31.1 pg Normal 27.0-32.0 [facility] Comment on above: Performed By: #### L 503.6150, L504.2610, L100.9950, L100.0100, L3410.2400, L3100.3425, L503.6550 #### [facility] [address] [place], [address] MCHC (RBC) [Mass/Vol] 33.3 g/dL Normal 32-36 [facility] Comment on above: Performed By: #### L 503.6150, L504.2610, L100.9950, L100.0100, L3410.2400, L3100.3425, L503.6550 #### [facility] [address] [place], [address] MCV (RBC) [Entitic vol] 93.4 fL Normal 80-94 [facility] Comment on above: Performed By: #### L 503.6150, L504.2610, L100.9950, L100.0100, L3410.2400, L3100.3425, L503.6550 #### [facility] [address] [place], [address] Monocytes/100 WBC (Bld) 7.7 % Normal 0-10 [facility] Comment on above: Performed By: #### L 503.6150, L504.2610, L100.9950, L100.0100, L3410.2400, L3100.3425, L503.6550 #### [facility] [address] [place], [address] Neutrophils/100 WBC (Bld) 58.5 % Normal 47-70 [facility] Comment on above: Performed By: #### L 503.6150, L504.2610, L100.9950, L100.0100, L3410.2400, L3100.3425, L503.6550 #### [facility] [address] [place], [address] Nucleated RBC (Bld) [#/Vol] 0 10*3/uL Normal 0-5 [facility] Comment on above: Performed By: #### L 503.6150, L504.2610, L100.9950, L100.0100, L3410.2400, L3100.3425, L503.6550 #### [facility] [address] [place], [address] Platelet mean volume (Bld) [Entitic vol] 9.3 fL Normal 6.2-12.0 [facility] Comment on above: Performed By: #### L 503.6150, L504.2610, L100.9950, L100.0100, L3410.2400, L3100.3425, L503.6550 #### [facility] [address] [place], [address] Platelets (Bld) [#/Vol] 406 10*3/uL Normal 150-450 [facility] Comment on above: Performed By: #### L 503.6150, L504.2610, L100.9950, L100.0100, L3410.2400, L3100.3425, L503.6550 #### [facility] [address] [place], [address] RBC (Bld) [#/Vol] 4.41 10*6/uL Low 4.6-6.2 [facility] Comment on above: Performed By: #### L 503.6150, L504.2610, L100.9950, L100.0100, L3410.2400, L3100.3425, L503.6550 #### [facility] [address] [place], [address] RDW SD 44.2 fl High 35.1-43.9 [facility] Comment on above: Performed By: #### L 503.6150, L504.2610, L100.9950, L100.0100, L3410.2400, L3100.3425, L503.6550 #### [facility] [address] [place], [address] WBC (Bld) [#/Vol] 6.9 10*3/uL Normal 4.4-11.0 [facility] Comment on above: Performed By: #### L 503.6150, L504.2610, L100.9950, L100.0100, L3410.2400, L3100.3425, L503.6550 #### [facility] [address] [place], [address] Endomysial IgA antibody assa yOrdered By: Robert Friend on 12-16-2024 Endomysial IgA Antibody Negative Negative [facility] Eosinophil percentageOrdered By: Robert Flores on 12-16-2024 Eosinophils/100 WBC (Bld) 6.0 % High 0-5 [facility] Erythrocyte distribution wid th ratioOrdered By: Robert Flores on 12-16-2024 Erythrocyte distribution width (RBC) [Ratio] 12.9 % 11.6-14.6 [facility] Erythrocyte distribution wid th standard deviationOrdered By: Robert Flores on 12-16-2024 Erythrocyte distribution width (RBC) [Entitic vol] 44.2 fL High 35.1-43.9 [facility] Erythrocyte distribution width (RBC) [Ratio] 44.2 fl High 35.1-43.9 [facility] Ferritinon 12-16-2024 Ferritin [Mass/Vol] 124 ng/mL Normal 37-417 [facility] Comment on above: Performed By: #### L 503.6150, L504.2610, L100.9950, L100.0100, L3410.2400, L3100.3425, L503.6550 #### [facility] [address] [place], [address] Gamma globulin Elph [Mass/Vo l]Ordered By: Robert Flores on 12-16-2024 Gamma Globulins (PENNY) 1.6 g/dL 0.4-1.8 [facility] Gastroenterology Visit Repor ton 12-16-2024 Gastroenterology Visit Report [facility] [address] [place] [address] OFFICE VISIT Date of Service: 12/16/24 MR#: [id number] Acct: [id number] Name: JOSE SANDOVAL Rep #: [id number] : 1950 Provider: Robert Flores DO Age/Sex: 74/M Location[facility] Status: Signed Intake Vital Signs 06/10/24 08:57 [...] tabs 11/06/23 0 12/16/24 Rx Allergy (cetirizine)) compress.helder,amanda e,reg,lrg #2 ea 03/03/24 12/16/24 Rx amlodipine [...] denies heartburn, (more content not included)... Normal [facility] Hematocrit Auto (Bld) [Volum e fraction]Ordered By: Robert Flores on 12-16-2024 Hematocrit (Bld) [Volume fraction] 41.2 % 40-54 [facility] Hemoglobin (Reticulocytes) [ Entitic mass]Ordered By: Robert Flores on 12-16-2024 Reticulocyte Hemoglobin Equivalent 35.4 pg High 30-35 [facility] Hemoglobin measurementOrdere d By: Robert Flores on 12-16-2024 Hemoglobin (Bld) [Mass/Vol] 13.7 g/dL 13.0-16.5 [facility] IgA [Mass/Vol]Ordered By: Ra katey Flores on 12-16-2024 Immunoglobulin A 68 mg/dL 61-437 [facility] IgG [Mass/Vol]Ordered By: Ra katey Flores on 12-16-2024 Immunoglobulin G 1748 mg/dL High 603-1613 [facility] Immature granulocytes/100 WB C Auto (Bld)Ordered By: Robert Flores on 12-16-2024 Immature granulocytes/100 WBC (Bld) 0.300 % 0.0-0.9 [facility] Comment on above: IG% - Immature Granu locytes (promyelocytes, myelocytes and metamyelocytes) > 1% indicates that a LEFT SHIFT is Present. Immature reticulocyte fracti onOrdered By: Robert Flores on 12-16-2024 Immature Reticulocyte Fraction 8.00 % 3.00-15.90 [facility] Immunoglobulin M measurement Ordered By: Robert Flores on 12-16-2024 Immunoglobulin M 38 mg/dL 15-143 [facility] Interpretation IEP [Interp]O rdered By: Robert Flores on 12-16-2024 Immunofixation Screen Comment High . [facility] Comment on above: Immunofixation shows IgG monoclonal protein with lambdalight chain specificity.PENNY also shows an asymmetrical IgA suggestive of a monoclonalprotein. Interpretation of serum or p lasma protein pattern by immunofixation (narrative resultOrdered By: Robert Flores on 12-16-2024 Protein Fractions Immunofixation Yony [Interp] 1.3 g/dL High Not Observed [facility] Ironon 12-16-2024 Iron [Mass/Vol] 92 ug/dL Normal 65-175 [facility] Comment on above: Performed By: #### L 503.6150, L504.2610, L100.9950, L100.0100, L3410.2400, L3100.3425, L503.6550 #### [facility] [address] [place], [address] (579) Iron (Unsp spec) [Mass/Mass] Ordered By: Robert Flores on 12-16-2024 Iron [Mass/Vol] 92 ug/dL 65-175 [facility] Iron measurement (mass/mass) Ordered By: Robert Flores on 12-16-2024 Iron (Unsp spec) [Mass/Mass] 92 ug/dL 65-175 [facility] LDHon 12-16-2024 LDH 135 U/L Normal 87-241 [facility] Comment on above: Order Comment: 1 Performed By: #### L 503.6150, L504.2610, L100.9950, L100.0100, L3410.2400, L3100.3425, L503.6550 ####[facility] [address] [place], [address] Lactate dehydrogenase (LDH) measurementOrdered By: Robert Flores on 12-16-2024 LDH [Catalytic activity/Vol] 135 U/L 87-241 [facility] Lymphocytes Auto (Unsp spec) [#/Vol]Ordered By: Robert Flores on 12-16-2024 Lymphocytes (Bld) [#/Vol] 1.84 10*3/uL 0.83-4.5 1 [facility] Lymphocytes/100 WBC Auto (Un sp spec)Ordered By: Robert Flores on 12-16-2024 Lymphocytes/100 WBC (Bld) 26.8 % 19-41 [facility] MCV (mean corpuscular volume ) determinationOrdered By: Robert Flores on 12-16-2024 MCV (RBC) [Entitic vol] 93.4 fL 80-94 [facility] Mean corpuscular hemoglobin (MCH) determinationOrdered By: Robert Flores on 12-16-2024 MCH (RBC) [Entitic mass] 31.1 pg 27.0-32.0 [facility] Mean corpuscular hemoglobin concentration (MCHC) determinationOrdered By: Robert Flores on 12-16-2024 MCHC (RBC) [Mass/Vol] 33.3 g/dL 32-36 [facility] Mean platelet volume determi nationOrdered By: Robert Flores on 12-16-2024 Platelet mean volume (Bld) [Entitic vol] 9.3 fL 6.2-12.0 [facility] Monocyte percentageOrdered B y: Robert Flores on 12-16-2024 Monocytes/100 WBC (Bld) 7.7 % 0-10 [facility] Neutrophil percentageOrdered By: Robert Flores on 12-16-2024 Neutrophils/100 WBC (Bld) 58.5 % 47-70 [facility] No Panel InformationOrdered By: Robert Flores on 12-16-2024 Addendum Document Comment . [facility] Comment on above: Protein electrophore sis scan will follow via computer,mail, or wool hanker delivery.Performed at: [address] [id number] Director: Minh Maradiaga PhD, Phone: [phone] Nucleated red blood cell per centageOrdered By: Robert Flores on 12-16-2024 Nucleated RBC/100 WBC (Bld) [Ratio] 0 % 0-5 [facility] Platelet countOrdered By: Ra katey Flores on 12-16-2024 Platelets (Bld) [#/Vol] 406 10*3/uL 150-450 [facility] Protein Fractions Immunofixa tion Yony [Interp]Ordered By: Robert Flores on 12-16-2024 M-Rudolph (PENNY) 1.3 g/dL High Not Observed [facility] RBC Auto (Bld) [#/Vol]Ordere d By: Robert Flores on 12-16-2024 RBC (Bld) [#/Vol] 4.41 10*6/uL Low 4.6-6.2 [facility] Retic Panelon 12-16-2024 IM RET FRACTION 8.00 Normal 3.00-15.90 [facility] Comment on above: Performed By: #### L 503.6150, L504.2610, L100.9950, L100.0100, L3410.2400, L3100.3425, L503.6550 #### [facility] [address] [place], [place], [id number] (341) RET-HE 35.4 pg High 30-35 [facility] Comment on above: Performed By: #### L 503.6150, L504.2610, L100.9950, L100.0100, L3410.2400, L3100.3425, L503.6550 #### [facility] [address] [place], [place], [id number] Retic Count 1.04 Normal 0.5-1.5 [facility] Comment on above: Performed By: #### L 503.6150, L504.2610, L100.9950, L100.0100, L3410.2400, L3100.3425, L503.6550 #### [facility] [address] [place], [place], [id number] Reticulocyte hemoglobin equi valent (RET-He) measurementOrdered By: Robert Flores on 12-16-2024 Hemoglobin (Reticulocytes) [Entitic mass] 35.4 pg High 30-35 [facility] Reticulocytes Auto (Bld) [#/ Vol]Ordered By: Robert Flores on 12-16-2024 Reticulocyte Count 1.04 % 0.5-1.5 [facility] Reticulocytes/100 RBC (Bld) 1.04 % 0.5-1.5 [facility] Serum albumin/globulin ratio Ordered By: Robert Flores on 12-16-2024 Albumin/Globulin (PENNY) 1.2 0.7-1.7 [facility] Serum globulin measurement ( mass/volume)Ordered By: Robert Flores on 12-16-2024 Globulin (S) [Mass/Vol] 3.6 g/dL 2.2-3.9 [facility] Serum or plasma IgA measurem ent (mass/volume)Ordered By: Robert Flores on 12-16-2024 IgA [Mass/Vol] 68 mg/dL 61-437 [facility] Serum or plasma IgG measurem ent (mass/volume)Ordered By: Robert Flores on 12-16-2024 IgG [Mass/Vol] 1748 mg/dL High 603-1613 [facility] Serum or plasma alpha 1 glob ulin measurement by electrophoresis (mass/volume)Ordered By: Robert Flores on 12-16-2024 Alpha 1 globulin Elph [Mass/Vol] 0.2 g/dL 0.0-0.4 [facility] Alpha 1 globulin Elph [Mass/Vol] 0.8 g/dL 0.4-1.0 [facility] Serum or plasma beta globuli n measurement by electrophoresis (mass/volume)Ordered By: Robert Flores on 12-16-2024 Beta globulin Elph [Mass/Vol] 0.9 g/dL 0.7-1.3 [facility] Serum or plasma ferritin darrell surement (mass/volume)Ordered By: Robert Flores on 12-16-2024 Ferritin [Mass/Vol] 124 ng/mL 37-417 [facility] Serum or plasma gamma globul in measurement by electrophoresis (mass/volume)Ordered By: Robert Flores on 12-16-2024 Gamma globulin Elph [Mass/Vol] 1.6 g/dL 0.4-1.8 [facility] Serum or plasma immunoelectr ophoresis interpretation (nominal result)Ordered By: Robert Flores on 12-16-2024 Interpretation IEP [Interp] Comment High . [facility] Comment on above: Immunofixation shows IgG monoclonal protein with lambdalight chain specificity.PENNY also shows an asymmetrical IgA suggestive of a monoclonalprotein. Serum or plasma protein jhon urement (mass/volume)Ordered By: Robert Flores on 12-16-2024 Protein [Mass/Vol] 7.6 g/dL 6.0-8.5 [facility] Serum tissue transglutaminas e (tTG) IgA antibody assay (units/volume)Ordered By: Robertkathleen Flores on 12-16-2024 tTG IgA Qn (S) <2 U/mL 0-3 [facility] Comment on above: Negative 0 - 3 Weak Positive 4 - 10 Positive >10 Tissue Transglutaminase (tTG) has been identified as the endomysial antigen. Studies have demonstr- ated that endomysial IgA antibodies have over 99% specificity for gluten sensitive enteropathy. White blood cell (WBC) count Ordered By: Robert Flores on 12-16-2024 WBC (Bld) [#/Vol] 6.9 10*3/uL 4.4-11.0 [facility] tTG IgA Qn (S)Ordered By: Ra katey Flores on 12-16-2024 Tissue Transglutaminase IgA Ab <2 U/mL 0-3 [facility] Comment on above: Negative 0 - 3 Weak Positive 4 - 10 Positive >10 Tissue Transglutaminase (tTG) has been identified as the endomysial antigen. Studies have demonstr- ated that endomysial IgA antibodies have over 99% specificity for gluten sensitive enteropathy. Chest PA and Lateralon 12-01 Chest PA and Lateral [facility] Imaging Services [address] [place], [place] [address] Chest PA and Lateral MR#: [id number] Acct: [id number] Name: JOSE SANDOVAL Rep #: [id number] : 1950 M 74 From: Troy Davila i DO PCP: Dr. Timmy Floyd MD Status: DEP AMB Study: Chest PA and Lateral Date of Exam: 12/01/24 Exam# [id number] Ordering Dr: Sean Jackson PROCEDURE: PA and lateral chest radiographs, two [...] CT evaluation may be considered. Reading Location: [facility] CC: Dr. Timmy Floyd MD; SUJATA Alvarenga Firer Kiln: Signed Normal [facility] Internal Medicine Office Vis itoalda 12-01-2024 Internal Medicine Office Visit [facility] [address] [place] [address] [place] [address] OFFICE VISIT Date of Service: 12/01/24 MR#: [id number] Acct: [id number] Name: JOSE SANDOVAL Rep #: [id number] : 1950 Provider: SUJATA Alvarenga Age/Sex: 74/M Location: [facility] Status: Signed Intake Vital Signs 11/11/24 09:50 [...] Visit Reasons: BRONCHITIS FU Chief Complaint: fu Manager Systems Required: No Accompanied by: Self Is patient [...] the antibiotic questions concerning need for cxr [facility] Medical History Acute bronchitis, unspecified Anemia [...] mastoid palmira (more content not included)... Normal [facility] Urgent Care Visit Reporton 0 11-21-2024 Urgent Care Visit Report [facility] [address], [address] [place] [address] OFFICE VISIT Date of Service: 11/21/24 MR#: [id number] Acct: [id number] Name: JOSE SANDOVAL Rep #: [id number] : 1950 Provider: SUJATA Fernandez Age/Sex: 74/M Location: [facility] Status: Signed Intake Vital Signs 11/11/24 09:50 [...] mg PO QPM #90 tabs 12/03/2308/05 Rx compress.amanda pendleton e,reg,lrg #2 ea 03/03/24 11/21/24 Rx pantoprazole [...] patient here for cough for a month. [facility] Medical History (Updated 11/21/24 @ 16:31 [...] breath or dyspnea on exertion. Non-smoker. No geoz-vvk-hetbnla products taken to assist. No other associated symptoms and no other alleviating/aggravati ng factors. zpack benzon ROS Const Constitutional: No other (As above) Exam Const General: cooperative, healthy appearing and no acute distress Nutritional Appearance: average body habitus Orientation: alert an (more content not included)... Normal [facility] Cardiology Visit Reporton Cardiology Visit Report [facility] [address] [place] [address] OFFICE VISIT Date of Service: 11/11/24 MR#: [id number] Acct: [id number] Name: JOSE SANDOVAL Rep #: [id number] : 1950 Provider: SUJATA Mcneil Age/Sex: 74/M Location: [facility] Status: Signed HPI HPI History of Present [...] 94 Intake Visit Reasons: 3 M FU Manager Systems Required: No Is patient in pain?: No [...] Heart diseas (more content not included)... Normal [facility] Cardiology Visit Reporton Cardiology Visit Report [facility] [address] [place] [address] OFFICE VISIT Date of Service: 08/09/24 MR#: [id number] Acct: [id number] Name: JOSE SANDOVAL Rep #: [id number] : 1950 Provider: TYSON gilmore Age/Sex: 73/M Location: [facility] Status: Signed [facility] History of Present Illness Details: Jose Sandoval [...] Intake Visit Reasons: 1 Y FU/PREV PFM Manager Systems Required: No Is patient in pain?: No [...] you fallen in the past year?: [facility] History (Reviewed 08/09/24 @ 09:40 by Kathleen Grande [employer], [employer]-C) Anemia Constipation Bilateral lower extremity edema Abdominal [...] Grandmother Heart disease Social History ... Normal [facility] Cardiac Cath Diagnosticon Cardiac Cath Diagnostic [facility] Imaging Services [address] [place] [address] Cardiac Cath Diagnostic MR#: [id number] Acct: [id number] Name: JOSE SANDOVAL Rep #: [id number] : 1950 73 From: Kelby Seth MD PCP: Dr. Timmy Floyd MD Status:DEP [facility] Patient Name: JOSE SANDOVAL Study Date: 07/13/2024 Performing: Kelby Seth MD Ht: 69 inches 175.26 cm : 1950 Wt: 187.2 lbs 84.82 kg Age: 73 Gender: male BSA: 2.01 PROCEDURE(S) PERFORMED DC01-(41553)LHC/COR/L V CLINICAL PROFILE AND INDICATIONS Indications: Worsening [...] multiple views using a 5 Fr. 4.0 [place] catheter. Right Coronary Artery selective angiography was then performed in multiple views using a 5 Fr. 4.0 [place] catheter. Left Ventriculography was performed in [place] [...] Kelby Seth MD 07/15/24 1011 Date Kelby Rasheed Signature: Date (if indicated) CC: Dr. Kelby Seth MD; Dr. Timmy Floyd MD Date Dictated: 07/13/24 1243 Date Transcribed: 07/15/24 1010 Firer Kiln: CO Signed Normal [facility] Basic Metabolic Profile (BMP )on 06-29-2024 BUN/CRE 23.3 RATIO High 10-20 [facility] Comment on above: Performed By: #### L 100.0100, L500.2500, L300.3900 ####[facility] [address] [place], [address] CA,Total 9.7 mg/dL Normal 8.5-10.1 [facility] Comment on above: Performed By: #### L 100.0100, L500.2500, L300.3900 ####[facility] [address] [place], [address] Chloride [Moles/Vol] 104 mmol/L Normal 98-107 [facility] Comment on above: Performed By: #### L 100.0100, L500.2500, L300.3900 ####[facility] [address] [place], [address] CO2 [Moles/Vol] 27.0 mmol/L Normal 21.0-32.0 [facility] Comment on above: Performed By: #### L 100.0100, L500.2500, L300.3900 ####[facility] [address] [place], [address] Creatinine [Mass/Vol] 1.29 mg/dL Normal 0.70-1.30 [facility] Comment on above: Result Comment: The validity of the calculated GFR GFRAA in patients over 70 years has not been determined. Clinical correlation is essential. Performed By: #### L 100.0100, L500.2500, L300.3900 ####[facility] [address] [place], [address] EST GFR - AA 71 mL/min Normal >60 [facility] Comment on above: Result Comment: Afri can Citizen Of [place] GFR Calc Performed By: #### L 100.0100, L500.2500, L300.3900 ####[facility] [address] [place], [address] GAP 7 Normal 5-15 [facility] Comment on above: Performed By: #### L 100.0100, L500.2500, L300.3900 ####[facility] [address] [place], [address] GFR/1.73 sq M.predicted among non-blacks MDRD (S/P/Bld) [Vol rate/Area] 58 mL/min/{1.73_m2} Low >60 [facility] Comment on above: Result Comment: Non- GFR Calc Performed By: #### L 100.0100, L500.2500, L300.3900 ####[facility] [address] [place], [address] Glucose [Mass/Vol] 115 mg/dL High 74-106 [facility] Comment on above: Result Comment: Fast ing Glucose result from 100 to 125 mg/dL suggests IMPAIRED HOMEOSTASIS per A.D.A. criteria. Performed By: #### L 100.0100, L500.2500, L300.3900 ####[facility] [address] [place], [address] Potassium [Moles/Vol] 4.4 mmol/L Normal 3.5-5.1 [facility] Comment on above: Performed By: #### L 100.0100, L500.2500, L300.3900 ####[facility] [address] [place], [address] Sodium [Moles/Vol] 138 mmol/L Normal 136-145 [facility] Comment on above: Performed By: #### L 100.0100, L500.2500, L300.3900 ####[facility] [address] [place], [address] Urea nitrogen [Mass/Vol] 30 mg/dL High 7-18 [facility] Comment on above: Performed By: #### L 100.0100, L500.2500, L300.3900 ####[facility] [address] [place], [address] CBC W/Diff, Automatedon 06-12 Absolute Lymph 1.59 X10 3/uL Normal 0.83-4.51 [facility] Comment on above: Performed By: #### L 100.0100, L500.2500, L300.3900 ####[facility] [address] [place], [address] Absolute Neut 3.2 X10 3/uL Normal 2.0-7.7 [facility] Comment on above: Performed By: #### L 100.0100, L500.2500, L300.3900 ####[facility] [address] [place], [address] Basophils/100 WBC (Bld) 0.4 % Normal 0-1 [facility] Comment on above: Performed By: #### L 100.0100, L500.2500, L300.3900 ####[facility] [address] [place], [address] Eosinophils/100 WBC (Bld) 1.9 % Normal 0-5 [facility] Comment on above: Performed By: #### L 100.0100, L500.2500, L300.3900 ####[facility] [address] [place], [address] Erythrocyte distribution width (RBC) [Ratio] 13.1 % Normal 11.6-14.6 [facility] Comment on above: Performed By: #### L 100.0100, L500.2500, L300.3900 ####[facility] [address] [place], [address] Hematocrit (Bld) [Volume fraction] 36.0 % Low 40-54 [facility] Comment on above: Performed By: #### L 100.0100, L500.2500, L300.3900 ####[facility] [address] [place], [address] Hemoglobin (Bld) [Mass/Vol] 11.9 g/dL Low 13.0-16.5 [facility] Comment on above: Performed By: #### L 100.0100, L500.2500, L300.3900 ####[facility] [address] [place], [address] IG% 0.400 Normal 0.0-0.9 [facility] Comment on above: Result Comment: IG% - Immature Granulocytes (promyelocytes, myelocytes and metamyelocytes) > 1% indicates that a LEFT SHIFT is Present. Performed By: #### L 100.0100, L500.2500, L300.3900 ####[facility] [address] [place], [address] Lymphocytes/100 WBC (Bld) 29.8 % Normal 19-41 [facility] [facility] Comment on above: Performed By: #### L 100.0100, L500.2500, L300.3900 ####[facility] [address] [place], [address] MCH (RBC) [Entitic mass] 31.1 pg Normal 27.0-32.0 [facility] Comment on above: Performed By: #### L 100.0100, L500.2500, L300.3900 ####[facility] [address] [place], [address] MCHC (RBC) [Mass/Vol] 33.1 g/dL Normal 32-36 [facility] Comment on above: Performed By: #### L 100.0100, L500.2500, L300.3900 ####[facility] [address] [place], [address] MCV (RBC) [Entitic vol] 94.0 fL Normal 80-94 [facility] Comment on above: Performed By: #### L 100.0100, L500.2500, L300.3900 ####[facility] [address] [place], [address] Monocytes/100 WBC (Bld) 7.7 % Normal 0-10 [facility] Comment on above: Performed By: #### L 100.0100, L500.2500, L300.3900 ####[facility] [address] [place], [address] Neutrophils/100 WBC (Bld) 59.8 % Normal 47-70 [facility] Comment on above: Performed By: #### L 100.0100, L500.2500, L300.3900 ####[facility] [address] [place], [address] Nucleated RBC (Bld) [#/Vol] 0 10*3/uL Normal 0-5 [facility] Comment on above: Performed By: #### L 100.0100, L500.2500, L300.3900 ####[facility] [address] [place], [address] Platelet mean volume (Bld) [Entitic vol] 9.2 fL Normal 6.2-12.0 [facility] Comment on above: Performed By: #### L 100.0100, L500.2500, L300.3900 ####[facility] [address] [place], [address] Platelets (Bld) [#/Vol] 318 10*3/uL Normal 150-450 [facility] Comment on above: Performed By: #### L 100.0100, L500.2500, L300.3900 ####[facility] [address] [place], [address] RBC (Bld) [#/Vol] 3.83 10*6/uL Low 4.6-6.2 [facility] Comment on above: Performed By: #### L 100.0100, L500.2500, L300.3900 ####[facility] [address] [place], [address] RDW SD 44.8 fl High 35.1-43.9 [facility] Comment on above: Performed By: #### L 100.0100, L500.2500, L300.3900 ####[facility] [address] [place], [address] WBC (Bld) [#/Vol] 5.3 10*3/uL Normal 4.4-11.0 [facility] Comment on above: Performed By: #### L 100.0100, L500.2500, L300.3900 ####[facility] [address] [place], [address] Cardiology Visit Reporton Cardiology Visit Report [facility] [address] [place] [address] OFFICE VISIT Date of Service: 06/29/24 MR#: [id number] Acct: [id number] Name: JOSE SANDOVAL Rep #: [id number] : 1950 Provider: SUJATA Mcneil Age/Sex: 73/M Location: [facility] [place] Status: Signed HPI [facility] History of Present Illness Surgical H P: Yes Details: Jose Sandoval is a 73-year-old white [...] Visit Reasons: ABN STRESS (PER MARIEL)(SEE NOTES) Manager Systems Required: No Is patient in pain?: No [...] QHS cholesterol #90 tabs 12/08/23 06/29/24 Rx compress.helder,amanda e,reg,lrg #2 ea 03/03/24 06/17/24 [...] 06/17/24 History mcg-formot 4.8 mcg/actuation HFA inhaler ([employer]) Have you fallen in the past year?: No Nurse's Note: no medication list, does not know names of all medications [facility] Medical History Anemia Constipation Bilateral lower [...] substance use (more content not included)... Normal [facility] Chest PA and Lateralon 06-29 Chest PA and Lateral [facility] Imaging Services [address] [place] [address] Chest PA and Lateral MR#: [id number] Acct: [id number] Name: JOSE SANDOVAL Rep #: [id number] : 1950 M 73 From: Nelson Evans MD PCP: Dr. Timmy Floyd MD Status: REG CLI Study: Chest PA and Lateral Date of Exam: 06/29/24 Exam# [id number] Ordering Dr: Sarita Murillo [place] [id number] STUDY: X-RAY CHEST REASON FOR EXAM: Male, [...] CC: Dr. Timmy Floyd MD; SUJATA Masters Firer Kiln: Signed Normal [facility] Prothrombin Time w/INRon INR Coag (PPP) [Relative time] 1.1 {INR} Normal [facility] Comment on above: Performed By: #### L 100.0100, L500.2500, L300.3900 ####[facility] [address] [place], [address] PT Coag (PPP) [Time] 13.9 s Normal 11.7-14.9 [facility] Comment on above: Performed By: #### L 100.0100, L500.2500, L300.3900 ####[facility] [address] [place], [address] Stress Reporton 06-28-2024 Stress Report [facility] Cardiovascular Services [address] [place] [address] MR#: [id number] Acct: [id number] Name: JOSE SANDOVAL Rep #: [id number] : 1950 73 From: Keiko Arrieta MD Primary Care: Dr. Timmy Floyd MD Status: REG CLI Referring Dr: Timmy Floyd MD Sex: M [...] of %. This note was generated with Paradineation software. It may contain incorrect words, spelling, and punctuation that were not noted in checking the note before signing. 06/28/24 1215 Date Keiko Arrieta MD CC: Dr. Timmy Floyd MD Date Dictated: 06/28/24 1212 Date Transcribed: 06/28/241211 Firer Kiln: DAVID Signed Normal [facility] Gastroenterology Visit Repor ton 06-17-2024 Gastroenterology Visit Report [facility] [address] [facility] [place] [address] OFFICE VISIT Date of Service: 06/17/24 MR#: [id number] Acct: [id number] Name: JOSE SANDOVAL Rep #: [id number] : 1950 Provider: SUJATA Tay Age/Sex: 73/M Location: [facility] [place] Status: Signed Intake Vital Signs 08/28/23 10:16 [...] you fallen in the past year?: No [facility] Medical History (Updated 06/10/24 @ 13:24 [...] some w (more content not included)... Normal [facility] CBC W/Diff, Automatedon - 0-2023 Absolute Lymph 1.52 X10 3/uL Normal 0.83-4.51 [facility] Comment on above: Performed By: #### L 501.9910, L500.4100, L100.0100, L500.4050 ####[facility] [address] [place], [address] Absolute Neut 2.4 X10 3/uL Normal 2.0-7.7 [facility] Comment on above: Performed By: #### L 501.9910, L500.4100, L100.0100, L500.4050 ####[facility] [address] [place], [address] Basophils/100 WBC (Bld) 0.9 % Normal 0-1 [facility] Comment on above: Performed By: #### L 501.9910, L500.4100, L100.0100, L500.4050 ####[facility] [address] [place], [address] Eosinophils/100 WBC (Bld) 2.3 % Normal 0-5 [facility] Comment on above: Performed By: #### L 501.9910, L500.4100, L100.0100, L500.4050 ####[facility] [address] [place], [address] Erythrocyte distribution width (RBC) [Ratio] 12.9 % Normal 11.6-14.6 [facility] Comment on above: Performed By: #### L 501.9910, L500.4100, L100.0100, L500.4050 ####[facility] [address] [place], [address] Hematocrit (Bld) [Volume fraction] 38.4 % Low 40-54 [facility] Comment on above: Performed By: #### L 501.9910, L500.4100, L100.0100, L500.4050 ####[facility] [address] [place], [address] Hemoglobin (Bld) [Mass/Vol] 12.4 g/dL Low 13.0-16.5 [facility] Comment on above: Performed By: #### L 501.9910, L500.4100, L100.0100, L500.4050 ####[facility] [address] [place], [address] IG% 0.200 Normal 0.0-0.9 [facility] Comment on above: Result Comment: IG% - Immature Granulocytes (promyelocytes, myelocytes and metamyelocytes) > 1% indicates that a LEFT SHIFT is Present. Performed By: #### L 501.9910, L500.4100, L100.0100, L500.4050 ####[facility] [address] [place], [address] Lymphocytes/100 WBC (Bld) 34.2 % Normal 19-41 [facility] Comment on above: Performed By: #### L 501.9910, L500.4100, L100.0100, L500.4050 ####[facility] [address] [place], [address] MCH (RBC) [Entitic mass] 30.0 pg Normal 27.0-32.0 [facility] Comment on above: Performed By: #### L 501.9910, L500.4100, L100.0100, L500.4050 ####[facility] [address] [place], [address] MCHC (RBC) [Mass/Vol] 32.3 g/dL Normal 32-36 [facility] Comment on above: Performed By: #### L 501.9910, L500.4100, L100.0100, L500.4050 ####[facility] [address] [place], [address] MCV (RBC) [Entitic vol] 93.0 fL Normal 80-94 [facility] Comment on above: Performed By: #### L 501.9910, L500.4100, L100.0100, L500.4050 ####[facility] [address] [place], [address] Monocytes/100 WBC (Bld) 8.3 % Normal 0-10 [facility] Comment on above: Performed By: #### L 501.9910, L500.4100, L100.0100, L500.4050 ####[facility] [address] [place], [address] Neutrophils/100 WBC (Bld) 54.1 % Normal 47-70 [facility] Comment on above: Performed By: #### L 501.9910, L500.4100, L100.0100, L500.4050 ####[facility] [address] [place], [address] Nucleated RBC (Bld) [#/Vol] 0 10*3/uL Normal 0-5 [facility] Comment on above: Performed By: #### L 501.9910, L500.4100, L100.0100, L500.4050 ####[facility] [address] [place], [address] Platelet mean volume (Bld) [Entitic vol] 9.6 fL Normal 6.2-12.0 [facility] Comment on above: Performed By: #### L 501.9910, L500.4100, L100.0100, L500.4050 ####[facility] [address] [place], [address] Platelets (Bld) [#/Vol] 340 10*3/uL Normal 150-450 [facility] Comment on above: Performed By: #### L 501.9910, L500.4100, L100.0100, L500.4050 ####[facility] [address] [place], [address] RBC (Bld) [#/Vol] 4.13 10*6/uL Low 4.6-6.2 [facility] Comment on above: Performed By: #### L 501.9910, L500.4100, L100.0100, L500.4050 ####[facility] [address] [place], [address] RDW SD 43.8 fl Normal 35.1-43.9 [facility] Comment on above: Performed By: #### L 501.9910, L500.4100, L100.0100, L500.4050 ####[facility] [address] [place], [address] WBC (Bld) [#/Vol] 4.4 10*3/uL Normal 4.4-11.0 [facility] Comment on above: Performed By: #### L 501.9910, L500.4100, L100.0100, L500.4050 ####[facility] [address] [place], [address] Comprehensive Metabolic Prof [facility] 06-10-2024 Albumin [Mass/Vol] 3.6 g/dL Normal 3.2-5.0 [facility] Comment on above: Performed By: #### L 501.9910, L500.4100, L100.0100, L500.4050 ####[facility] [address] [place], [address] Albumin/Globulin [Mass ratio] 0.9 {ratio} Normal 0.9-2.4 [facility] Comment on above: Performed By: #### L 501.9910, L500.4100, L100.0100, L500.4050 ####[facility] [address] [place], [address] ALK P 72 U/L Normal 45-117 [facility] Comment on above: Performed By: #### L 501.9910, L500.4100, L100.0100, L500.4050 ####[facility] [address] [place], [address] ALT [Catalytic activity/Vol] 17 U/L Normal 16-61 [facility] Comment on above: Performed By: #### L 501.9910, L500.4100, L100.0100, L500.4050 ####[facility] [address] [place], [address] AST [Catalytic activity/Vol] 14 U/L Low 15-37 [facility] Comment on above: Performed By: #### L 501.9910, L500.4100, L100.0100, L500.4050 ####[facility] [address] [place], [address] Bilirubin [Mass/Vol] 0.50 mg/dL Normal 0.20-1.00 [facility] Comment on above: Result Comment: For patients on eltrombopag therapy, use of Dimension [place] TBIL is not recommended. Performed By: #### L 501.9910, L500.4100, L100.0100, L500.4050 ####[facility] [address] [place], [address] BUN/CRE 21.7 RATIO High 10-20 [facility] Comment on above: Performed By: #### L 501.9910, L500.4100, L100.0100, L500.4050 ####[facility] [address] [place], [address] CA,Total 9.6 mg/dL Normal 8.5-10.1 [facility] Comment on above: Performed By: #### L 501.9910, L500.4100, L100.0100, L500.4050 ####[facility] [address] [place], [address] Chloride [Moles/Vol] 103 mmol/L Normal 98-107 [facility] Comment on above: Performed By: #### L 501.9910, L500.4100, L100.0100, L500.4050 ####[facility] [address] [place], [address] CO2 [Moles/Vol] 28.0 mmol/L Normal 21.0-32.0 [facility] Comment on above: Performed By: #### L 501.9910, L500.4100, L100.0100, L500.4050 ####[facility] [address] [place], [address] Creatinine [Mass/Vol] 1.38 mg/dL High 0.70-1.30 [facility] Comment on above: Result Comment: The validity of the calculated GFR GFRAA in patients over 70 years has not been determined. Clinical correlation is essential. Performed By: #### L 501.9910, L500.4100, L100.0100, L500.4050 ####[facility] [address] [place], [address] EST GFR - AA 65 mL/min Normal >60 [facility] Comment on above: Result Comment: Afri can Citizen [place] GFR Calc Performed By: #### L 501.9910, L500.4100, L100.0100, L500.4050 ####[facility] [address] [place], [address] GAP 5 Normal 5-15 [facility] Comment on above: Performed By: #### L 501.9910, L500.4100, L100.0100, L500.4050 ####[facility] [address] [place], [address] GFR/1.73 sq M.predicted among non-blacks MDRD (S/P/Bld) [Vol rate/Area] 54 mL/min/{1.73_m2} Low >60 [facility] Comment on above: Result Comment: Non- GFR Calc Performed By: #### L 501.9910, L500.4100, L100.0100, L500.4050 ####[facility] [address] [place], [address] Globulin (S) [Mass/Vol] 3.8 g/dL Normal 2.2-4.2 [facility] Comment on above: Performed By: #### L 501.9910, L500.4100, L100.0100, L500.4050 ####[facility] [address] [place], [address] Glucose [Mass/Vol] 117 mg/dL High 74-106 [facility] Comment on above: Result Comment: Fast ing Glucose result from 100 to 125 mg/dL suggests IMPAIRED HOMEOSTASIS per A.D.A. criteria. Performed By: #### L 501.9910, L500.4100, L100.0100, L500.4050 ####[facility] [address] [place], [address] Potassium [Moles/Vol] 3.9 mmol/L Normal 3.5-5.1 [facility] Comment on above: Performed By: #### L 501.9910, L500.4100, L100.0100, L500.4050 ####[facility] [address] [place], [address] Sodium [Moles/Vol] 136 mmol/L Normal 136-145 [facility] Comment on above: Performed By: #### L 501.9910, L500.4100, L100.0100, L500.4050 ####[facility] [address] [place], [address] T PROT 7.4 g/dL Normal 6.4-8.2 [facility] Comment on above: Performed By: #### L 501.9910, L500.4100, L100.0100, L500.4050 ####[facility] [address] [place], [address] Urea nitrogen [Mass/Vol] 30 mg/dL High 7-18 [facility] Comment on above: Performed By: #### L 501.9910, L500.4100, L100.0100, L500.4050 ####[facility] [address] [place], [address] Ferritinon 06-10-2024 Ferritin [Mass/Vol] 68 ng/mL Normal 26-388 [facility] Comment on above: Performed By: #### L 503.6075, L503.6550, L503.6150 ####[facility] [address] [place], [address] Internal Medicine Office Vis itoalda 06-10-2024 Internal Medicine Office Visit [facility] [address] [place], [place] [address] OFFICE VISIT Date of Service: 06/10/24 MR#: [id number] Acct: [id number] Name: JOSE SANDOVAL Rep #: [id number] : 1950 Provider: Dr. Timmy welch MD Age/Sex: 73/M Location: [facility] Status: Signed Intake Vital Signs 03/03/24 15:49 [...] M FU Chief Complaint: 3 m f/u Manager Systems Required: No Accompanied by: Self Is patient [...] QHS cholesterol #90 tabs 12/08/23 06/10/24 Rx compress.helder,amanda e,reg,lrg #2 ea 03/03/24 06/10/24 Rx scopolamine [...] 06/10/24 History mcg-formot 4.8 mcg/actuation HFA inhaler ([employer]) Have you fallen in the past year?: [...] fatigue, feve (more content not included)... Normal [facility] Ironon 06-10-2024 Iron [Mass/Vol] 92 ug/dL Normal 65-175 [facility] Comment on above: Performed By: #### L 503.6075, L503.6550, L503.6150 ####[facility] [address] [place], [address] Iron Binding Capacity,Totalo n 06-10-2024 TIBC 298 ug/dL Normal 250-450 [facility] Comment on above: Performed By: #### L 503.6075, L503.6550, L503.6150 ####[facility] [address] [place], [address] Lipid Profileon 06-10-2024 Cholesterol [Mass/Vol] 130 mg/dL Normal 200 [facility] Comment on above: Result Comment: <200 mg/dL Desirable 200-240 mg/dL Borderline >240 mg/dL High Risk Performed By: #### L 501.9910, L500.4100, L100.0100, L500.4050 ####[facility] [address] [place], [address] Cholesterol in HDL [Mass/Vol] 69 mg/dL Normal [facility] Comment on above: Result Comment: The drugs N-Acetylcysteine and Metamizole may falsely depress this assay. Reference Range HDL <40 mg/dL Low HDL Cholesterol HDL >or= 60 mg/dL High HDL Cholesterol Performed By: #### L 501.9910, L500.4100, L100.0100, L500.4050 ####[facility] [address] [place], [address] Cholesterol in LDL [Mass/Vol] 52 mg/dL Normal 0-130 [facility] Comment on above: Performed By: #### L 501.9910, L500.4100, L100.0100, L500.4050 ####[facility] [address] [place], [address] Cholesterol in VLDL [Mass/Vol] 9 mg/dL Normal 5-40 [facility] Comment on above: Performed By: #### L 501.9910, L500.4100, L100.0100, L500.4050 ####[facility] [address] [place], [address] Triglyceride [Mass/Vol] 43 mg/dL Normal [facility] Comment on above: Result Comment: The drugs N-Acetylcysteine and Metamizole may falsely depress this assay. Serum Triglycerides Reference Interval Normal <150 mg/dL Borderline high 150 - 199 mg/dL High 200 - 499 mg/dL Very High > or = 500 mg/dL Performed By: #### L 501.9910, L500.4100, L100.0100, L500.4050 ####[facility] [address] [place], [address] PSA,Total - Annual Screenon 06-10-2024 PSA,TOT SCREEN 1.14 ng/mL Normal 0.00-4.00 [facility] Comment on above: Result Comment: This test was performed using the TPSA assay method for the [employer] chemistry system. Values obtained with different assay methods cannot be used interchangably. When changing PSA assays in the course of monitoring a patient, additional sequential testing should be carried out to confirm baseline values. Performed By: #### L 501.9910, L500.4100, L100.0100, L500.4050 ####[facility] [address] [place], [address] Basophil percentageOrdered B y: Timmy Floyd on 12-03-2023 Bilirubin [Mass/Vol] 0.70 mg/dL 0.20-1.00 [facility] Comment on above: For patients on eltr ombopag therapy, use of Dimension [place] TBIL is not recommended. Chloride [Moles/Vol] 104 mmol/L 98-107 [facility] Glucose [Mass/Vol] 103 mg/dL 74-106 [facility] Comment on above: Fasting Glucose resu lt from 100 to 125 mg/dL suggests IMPAIRED HOMEOSTASIS per A.D.A. criteria. Potassium [Moles/Vol] 4.4 mmol/L 3.5-5.1 [facility] Protein [Mass/Vol] 7.5 g/dL 6.4-8.2 [facility] Sodium [Moles/Vol] 137 mmol/L 136-145 [facility] Laboratory - Chemistry and C hemistry - challengeOrdered By: Timmy Floyd on 12-03-2023 Albumin/Globulin [Mass ratio] 1.0 {ratio} 0.9-2.4 [facility] ALP [Catalytic activity/Vol] 67 U/L 45-117 [facility] ALT [Catalytic activity/Vol] 23 U/L 16-61 [facility] CO2 [Moles/Vol] 28.0 mmol/L 21.0-32.0 [facility] Globulin (S) [Mass/Vol] 3.7 g/dL 2.2-4.2 [facility] Urea nitrogen/Creatinine [Mass ratio] 35.3 mg/mg 10-20 [facility] Laboratory - Hematology and Cell countson 12-03-2023 HbA1c (Bld) [Mass fraction] 8.2 % 4.2-6.3 [facility] No Panel InformationOrdered By: Timmy Floyd on 12-03-2023 Estimated GFR (MDRD) Amer 78 mL/min >60 [facility] Comment on above: GFR Calc Estimated GFR (MDRD) Non-Af Amer 64 mL/min >60 [facility] Comment on above: Non- GFR Calc Urine Microalbumin/Creatinine Ratio 16.9 mg/g CRE <30 [facility] Serum or plasma calcium jhon urement (mass/volume)Ordered By: Timmy Floyd on 12-03-2023 Calcium [Mass/Vol] 9.7 mg/dL 8.5-10.1 [facility] Serum or plasma creatinine m easurement (mass/volume)Ordered By: Timmy Floyd on 12-03-2023 Creatinine [Mass/Vol] 1.19 mg/dL 0.70-1.30 [facility] Comment on above: The validity of the calculated GFR & GFRAA in patients over 70 years has not been determined. Clinical correlation is essential. Serum or plasma urea nitroge n measurement (mass/volume)Ordered By: Timmy Floyd on 12-03-2023 Urea nitrogen [Mass/Vol] 42 mg/dL 7-18 [facility] Thin prep Papanicolaou smear with manual screeningOrdered By: Timmy Floyd on 12-03-2023 Thin prep Papanicolaou smear with manual screening 3.8 g/dL 3.2-5.0 [facility] Thin prep Papanicolaou smear with manual screening 17 U/L 15-37 [facility] Thin prep Papanicolaou smear with manual screening 5 5-15 [facility] Thin prep Papanicolaou smear with manual screening 17.9 mg/L NO RANGE EST. [facility] Urine creatinine measurement (mass/volume)Ordered By: Timmy Floyd on 12-03-2023 Creatinine (U) [Mass/Vol] 106.00 mg/dL NO RANGE EST. [facility] Laboratory - Hematology and Cell countson 08-28-2023 HbA1c (Bld) [Mass fraction] 9.4 % 4.2-6.3 [facility] Absolute lymphocyte countOrd ered By: Timmy Floyd on 05-11-2023 Lymphocytes Auto (Unsp spec) [#/Vol] 1.71 10*3/uL 0.83-4.51 [facility] Basophil percentageOrdered B y: Timmy Floyd on 05-11-2023 Basophils/100 WBC (Bld) 0.8 % 0-1 [facility] Bilirubin [Mass/Vol] 0.30 mg/dL 0.20-1.00 [facility] Comment on above: For patients on eltr ombopag therapy, use of Dimension [place] TBIL is not recommended. Chloride [Moles/Vol] 105 mmol/L 98-107 [facility] Cholesterol [Mass/Vol] 144 mg/dL <200 [facility] Comment on above: <200 mg/dL Desirable 200-240 mg/dL Borderline >240 mg/dL High Risk Eosinophils/100 WBC (Bld) 4.1 % 0-5 [facility] Glucose [Mass/Vol] 233 mg/dL 74-106 [facility] Comment on above: Glucose result great er than or equal to 200 mg/dLsuggests DIABETES MELLITUS per A.D.A. criteria. Neutrophils (Bld) [#/Vol] 3.8 10*3/uL 2.0-7.7 [facility] Neutrophils/100 WBC (Bld) 60.3 % 47-70 [facility] Potassium [Moles/Vol] 4.7 mmol/L 3.5-5.1 [facility] Protein [Mass/Vol] 7.9 g/dL 6.4-8.2 [facility] Sodium [Moles/Vol] 137 mmol/L 136-145 [facility] Triglyceride [Mass/Vol] 198 mg/dL <199 [facility] Comment on above: The drugs N-Acetylcy steine and Metamizole may falsely depress this assay.Serum Triglycerides Reference Interval Normal <150 mg/dL Borderline high 150 - 199 mg/dL High 200 - 499 mg/dL Very High > or = 500 mg/dL WBC (Bld) [#/Vol] 6.4 10*3/uL 4.4-11.0 [facility] Blood erythrocytes count (nu mber/volume)Ordered By: Timmy Floyd on 05-11-2023 RBC (Bld) [#/Vol] 4.48 10*6/uL 4.6-6.2 [facility] Blood hemoglobin measurement (mass/volume)Ordered By: Timmy Floyd on 05-11-2023 Hemoglobin (Bld) [Mass/Vol] 14.1 g/dL 13.0-16.5 [facility] Blood lymphocytes/100 leukoc ytesOrdered By: Timmy Floyd on 05-11-2023 Lymphocytes/100 WBC (Bld) 26.8 % 19-41 [facility] Blood monocytes/100 leukocyt esOrdered By: Timmy Floyd on 05-11-2023 Monocytes/100 WBC (Bld) 7.4 % 0-10 [facility] Blood platelet mean volumeOr dered By: Timmy Floyd on 05-11-2023 Platelet mean volume (Bld) [Entitic vol] 9.8 fL 6.2-12.0 [facility] Determination of erythrocyte mean corpuscular volume (MCV)Ordered By: Timmy Floyd on 05-11-2023 MCV (RBC) [Entitic vol] 96.2 fL 80-94 [facility] Hematocrit Auto (Bld) [Volum e fraction]Ordered By: [facility] Donialfonso on 05-11-2023 Hematocrit (Bld) [Volume fraction] 43.1 % 40-54 [facility] Laboratory - Chemistry and C hemistry - challengeOrdered By: [facility] on 05-11-2023 ALP [Catalytic activity/Vol] 83 U/L 45-117 [facility] ALT [Catalytic activity/Vol] 35 U/L 16-61 [facility] CO2 [Moles/Vol] 25.0 mmol/L 21.0-32.0 [facility] Globulin (S) [Mass/Vol] 4.5 g/dL 2.2-4.2 [facility] Urea nitrogen/Creatinine [Mass ratio] 26.1 mg/mg 10-20 [facility] Laboratory - Hematology and Cell countsOrdered By: [facility] Marionalfonso on 05-11-2023 Erythrocyte distribution width (RBC) [Entitic vol] 42.7 fL 35.1-43.9 [facility] Erythrocyte distribution width (RBC) [Ratio] 12.1 % 11.6-14.6 [facility] Immature granulocytes/100 WBC (Bld) 0.600 % 0.0-0.9 [facility] Comment on above: IG% - Immature Granu locytes (promyelocytes, myelocytes and metamyelocytes) > 1% indicates that a LEFT SHIFT is Present. MCH (RBC) [Entitic mass] 31.5 pg 27.0-32.0 [facility] Nucleated RBC/100 WBC (Bld) [Ratio] 0 % 0-5 [facility] MCHC Auto (RBC) [Mass/Vol]Or dered By: [facility] Floyd on 05-11-2023 MCHC (RBC) [Mass/Vol] 32.7 g/dL 32-36 [facility] No Panel InformationOrdered By: Timmy Floyd on 05-11-2023 Urine Microalbumin/Creatinine Ratio 70.0 mg/g CRE <30 [facility] Estimated GFR (MDRD) Amer 68 mL/min >60 [facility] Comment on above: GFR Calc Estimated GFR (MDRD) Non-Af Amer 56 mL/min >60 [facility] Comment on above: Non- GFR Calc Prostate Specific Antigen Screen 1.54 ng/mL 0.00-4.00 [facility] Comment on above: This test was perfor med using the TPSA assay method for [email or web address] chemistry system. Values obtained with differentassay methods cannot be used interchangably.When changing PSA assays in the course of monitoring apatient, additional sequential testing should be carriedout to confirm baseline values. Platelets bldOrdered By: Chevy Floyd on 05-11-2023 Platelets (Bld) [#/Vol] 365 10*3/uL 150-450 [facility] Serum or plasma albumin jhon urement (mass/volume)Ordered By: Timmy Floyd on 05-11-2023 Albumin [Mass/Vol] 3.4 g/dL 3.2-5.0 [facility] Serum or plasma albumin/glob ulin mass ratioOrdered By: Timmy Floyd on 05-11-2023 Albumin/Globulin [Mass ratio] 0.8 {ratio} 0.9-2.4 [facility] Serum or plasma calcium jhon urement (mass/volume)Ordered By: Timmy Floyd on 05-11-2023 Calcium [Mass/Vol] 9.2 mg/dL 8.5-10.1 [facility] Serum or plasma cholesterol in HDL measurement (mass/volume)Ordered By: Timmy Floyd on 05-11-2023 Cholesterol in HDL [Mass/Vol] 48 mg/dL >40 [facility] Comment on above: The drugs N-Acetylcy steine and Metamizole may falsely depress this assay. Reference Range HDL <40 mg/dL Low HDL Cholesterol HDL >or= 60 mg/dL High HDL Cholesterol Serum or plasma cholesterol in VLDL measurement (mass/volume)Ordered By: Timmy Floyd on 05-11-2023 Cholesterol in VLDL [Mass/Vol] 40 mg/dL 5-40 [facility] Serum or plasma creatinine m easurement (mass/volume)Ordered By: Timmy Floyd on 05-11-2023 Creatinine [Mass/Vol] 1.34 mg/dL 0.70-1.30 [facility] Comment on above: The validity of the calculated GFR & GFRAA in patients over 70 years has not been determined. Clinical correlation is essential. Serum or plasma low density lipoprotein (LDL) cholesterol measurement (mass/volume)Ordered By: sharon Floyd on 05-11-2023 Cholesterol in LDL [Mass/Vol] 56 mg/dL 0-130 [facility] Serum or plasma urea nitroge n measurement (mass/volume)Ordered By: Timmy Floyd on 05-11-2023 Urea nitrogen [Mass/Vol] 35 mg/dL 7-18 [facility] Thin prep Papanicolaou smear with manual screeningOrdered By: Timmy Floyd on 05-11-2023 Thin prep Papanicolaou smear with manual screening 91.7 mg/L NO RANGE EST. [facility] Thin prep Papanicolaou smear with manual screening 22 U/L 15-37 [facility] Thin prep Papanicolaou smear with manual screening 7 5-15 [facility] Urine creatinine measurement (mass/volume)Ordered By: Timmy Floyd on 05-11-2023 Creatinine (U) [Mass/Vol] 131.00 mg/dL NO RANGE EST. [facility] Whole blood hemoglobin A1c/t otal hemoglobin ratio (mass fraction)Ordered By: Timmy Floyd on 05-11-2023 HbA1c (Bld) [Mass fraction] 8.5 % 3.8-5.6 [facility] Comment on above: Normal < 5.7 % Predi abetic 5.7 - 6.4 % Diabetic >or= 6.5 % Please note range changes. Absolute lymphocyte counton 04-01-2022 Lymphocytes Auto (Unsp spec) [#/Vol] 1.94 10*3/uL 0.83-4.51 [facility] Work Phone: Basophil percentageon 2021 Basophils/100 WBC (Bld) 0.8 % 0-1 [facility] Work Phone: Bilirubin [Mass/Vol] 0.30 mg/dL 0.20-1.00 [facility] Work Phone: Comment on above: For patients on eltr ombopag therapy, use of Dimension [place] TBIL is not recommended. Chloride [Moles/Vol] 104 mmol/L 98-107 [facility] Work Phone: Eosinophils/100 WBC (Bld) 4.0 % 0-5 [facility] Work Phone: Glucose [Mass/Vol] 197 mg/dL 74-106 [facility] Work Phone: Comment on above: Fasting Glucose resu lt greater than or equal to 126 mg/dL suggests DIABETES MELLITUS per A.D.A. criteria. Neutrophils (Bld) [#/Vol] 3.3 10*3/uL 2.0-7.7 [facility] Work Phone: Neutrophils/100 WBC (Bld) 54.8 % 47-70 [facility] Work Phone: [phone] Potassium [Moles/Vol] 4.1 mmol/L 3.5-5.1 [facility] Work Phone: [phone] Protein [Mass/Vol] 7.2 g/dL 6.4-8.2 [facility] Work Phone: [phone] Sodium [Moles/Vol] 136 mmol/L 136-145 [facility] Work Phone: [phone] WBC (Bld) [#/Vol] 6.1 10*3/uL 4.4-11.0 [facility] Work Phone: [phone] Blood erythrocytes count (nu mber/volume)on 04-01-2022 RBC (Bld) [#/Vol] 4.36 10*6/uL 4.6-6.2 [facility] Work Phone: [phone] Blood hemoglobin measurement (mass/volume)on 04-01-2022 Hemoglobin (Bld) [Mass/Vol] 13.4 g/dL 13.0-16.5 [facility] Work Phone: Blood lymphocytes/100 leukoc yteson 04-01-2022 Lymphocytes/100 WBC (Bld) 32.0 % 19-41 [facility] Work Phone: Blood monocytes/100 leukocyt eson 04-01-2022 Monocytes/100 WBC (Bld) 7.7 % 0-10 [facility] Work Phone: Blood platelet mean volumeon 04-01-2022 Platelet mean volume (Bld) [Entitic vol] 9.6 fL 6.2-12.0 [facility] Work Phone: Determination of erythrocyte mean corpuscular volume (MCV)on 04-01-2022 MCV (RBC) [Entitic vol] 92.7 fL 80-94 [facility] Work Phone: Hematocrit Auto (Bld) [Volum e fraction]on 04-01-2022 Hematocrit (Bld) [Volume fraction] 40.4 % 40-54 [facility] Work Phone: [phone] Laboratory - Chemistry and C hemistry - challengeon 04-01-2022 ALP [Catalytic activity/Vol] 63 U/L 45-117 [facility] Work Phone: ALT [Catalytic activity/Vol] 32 U/L 16-61 [facility] Work Phone: CO2 [Moles/Vol] 24.0 mmol/L 21.0-32.0 [facility] Work Phone: Globulin (S) [Mass/Vol] 3.8 g/dL 2.2-4.2 [facility] Work Phone: Urea nitrogen/Creatinine [Mass ratio] 18.3 mg/mg 10-20 [facility] Work Phone: Laboratory - Hematology and Cell countson 04-01-2022 Erythrocyte distribution width (RBC) [Entitic vol] 42.8 fL 35.1-43.9 [facility]: [phone] Erythrocyte distribution width (RBC) [Ratio] 12.6 % 11.6-14.6 [facility] Work Phone: [phone] Immature granulocytes/100 WBC (Bld) 0.700 % 0.0-0.9 [facility] Work Phone: [phone] Comment on above: IG% - Immature Granu locytes (promyelocytes, myelocytes and metamyelocytes) > 1% indicates that a LEFT SHIFT is Present. MCH (RBC) [Entitic mass] 30.7 pg 27.0-32.0 [facility] Work Phone: Nucleated RBC/100 WBC (Bld) [Ratio] 0 % 0-5 [facility] Work Phone: [phone] MCHC Auto (RBC) [Mass/Vol]on 04-01-2022 MCHC (RBC) [Mass/Vol] 33.2 g/dL 32-36 [facility] Work Phone: No Panel Informationon 04-01 Estimated GFR (MDRD) Amer 81 mL/min >60 [facility] Work Phone: [phone] Comment on above: GFR Calc Estimated GFR (MDRD) Non-Af Amer 67 mL/min >60 [facility] Work Phone: [phone] Comment on above: Non- GFR Calc Prostate Specific Antigen Screen 1.38 ng/mL 0.00-4.00 [facility] Work Phone: [phone] Comment on above: This test was perfor med using the TPSA assay method for [facility]. Values obtained with differentassay methods cannot be used interchangably.When changing PSA assays in the course of monitoring apatient, additional sequential testing should be carriedout to confirm baseline values. Thyroid Stimulating Hormone (TSH) 1.01 uIU/mL 0.358-3.74 [facility] Work Phone: [phone] Vitamin D 25-Hydroxy 47.2 ng/mL [facility] Work Phone: [phone] Comment on above: Vitamin D 25(OH) Sta tus Range Deficiency <20 ng/mL (50nmol/L) Insufficiency 20 - 30 ng/mL (50 - 75 nmol/L) Sufficiency 30 - 100 ng/mL (75 - 250 nmol/L) Toxicity >100 ng/mL (>250 nmol/L) Platelets bldon 04-01-2022 Platelets (Bld) [#/Vol] 319 10*3/uL 150-450 [facility] Work Phone: Serum or plasma albumin jhon urement (mass/volume)on 04-01-2022 Albumin [Mass/Vol] 3.4 g/dL 3.2-5.0 [facility] Work Phone: Serum or plasma albumin/glob ulin mass ratioon 04-01-2022 Albumin/Globulin [Mass ratio] 0.9 {ratio} 0.9-2.4 [facility] Work Phone: Serum or plasma calcium jhon urement (mass/volume)on 04-01-2022 Calcium [Mass/Vol] 8.9 mg/dL 8.5-10.1 [facility] Work Phone: Serum or plasma creatinine m easurement (mass/volume)on 04-01-2022 Creatinine [Mass/Vol] 1.15 mg/dL 0.70-1.30 [facility] Work Phone: Comment on above: The validity of the calculated GFR & GFRAA in patients over 70 years has not been determined. Clinical correlation is essential. Serum or plasma urea nitroge n measurement (mass/volume)on 04-01-2022 Urea nitrogen [Mass/Vol] 21 mg/dL 7-18 [facility] Work Phone: Thin prep Papanicolaou smear with manual screeningon 04-01-2022 Thin prep Papanicolaou smear with manual screening 17 U/L 15-37 [facility] Work Phone: Thin prep Papanicolaou smear with manual screening 8 5-15 [facility] Work Phone: Absolute lymphocyte counton 03-30-2022 Lymphocytes Auto (Unsp spec) [#/Vol] 1.27 10*3/uL 0.83-4.51 [facility] Work Phone: Basophil percentageon 2021 Basophils/100 WBC (Bld) 0.8 % 0-1 [facility] Work Phone: Chloride [Moles/Vol] 106 mmol/L 98-[address] [facility] Work Phone: Eosinophils/100 WBC (Bld) 2.7 % 0-5 [facility] Work Phone: Glucose [Mass/Vol] 238 mg/dL 74-106 [facility] Work Phone: Comment on above: Glucose result great er than or equal to 200 mg/dLsuggests DIABETES MELLITUS per A.D.A. criteria. Neutrophils (Bld) [#/Vol] 4.4 10*3/uL 2.0-7.7 [facility] Work Phone: Neutrophils/100 WBC (Bld) 67.1 % 47-70 [facility] Work Phone: Potassium [Moles/Vol] 4.4 mmol/L 3.5-5.1 [facility] Work Phone: Comment on above: Moderate Hemolysis, Result may be falsely increased. Sodium [Moles/Vol] 138 mmol/L 136-145 [facility] Work Phone: WBC (Bld) [#/Vol] 6.6 10*3/uL 4.4-11.0 [facility] Work Phone: Blood erythrocytes count (nu mber/volume)on 03-30-2022 RBC (Bld) [#/Vol] 4.19 10*6/uL 4.6-6.2 [facility] Work Phone: Blood hemoglobin measurement (mass/volume)on 03-30-2022 Hemoglobin (Bld) [Mass/Vol] 13.2 g/dL 13.0-16.5 [facility] Work Phone: Blood lymphocytes/100 leukoc yteson 03-30-2022 Lymphocytes/100 WBC (Bld) 19.3 % 19-41 [facility] Work Phone: Blood monocytes/100 leukocyt eson 03-30-2022 Monocytes/100 WBC (Bld) 9.6 % 0-10 [facility] Work Phone: Blood platelet mean volumeon 03-30-2022 Platelet mean volume (Bld) [Entitic vol] 9.3 fL 6.2-12.0 [facility] Work Phone: Determination of erythrocyte mean corpuscular volume (MCV)on 03-30-2022 MCV (RBC) [Entitic vol] 93.3 fL 80-94 [facility] Work Phone: Hematocrit Auto (Bld) [Volum e fraction]on 03-30-2022 Hematocrit (Bld) [Volume fraction] 39.1 % 40-54 [facility] Work Phone: Laboratory - Chemistry and C hemistry - challengeon 03-30-2022 CO2 [Moles/Vol] 25.0 mmol/L 21.0-32.0 [facility] Work Phone: Urea nitrogen/Creatinine [Mass ratio] 21.7 mg/mg 10-20 [facility] Work Phone: Laboratory - Hematology and Cell countson 03-30-2022 Erythrocyte distribution width (RBC) [Entitic vol] 42.5 fL 35.1-43.9 [facility] Work Phone: [phone] Erythrocyte distribution width (RBC) [Ratio] 12.4 % 11.6-14.6 [facility] Work Phone: [phone] Immature granulocytes/100 WBC (Bld) 0.500 % 0.0-0.9 [facility] Work Phone: Comment on above: IG% - Immature Granu locytes (promyelocytes, myelocytes and metamyelocytes) > 1% indicates that a LEFT SHIFT is Present. MCH (RBC) [Entitic mass] 31.5 pg 27.0-32.0 [facility] Work Phone: Nucleated RBC/100 WBC (Bld) [Ratio] 0 % 0-5 [facility] Work Phone: MCHC Auto (RBC) [Mass/Vol]on 03-30-2022 MCHC (RBC) [Mass/Vol] 33.8 g/dL 32-36 [facility] Work Phone: No Panel Informationon 03-30 Troponin I High Sensitivity 5 pg/mL 3.0-78.0 [facility] Work Phone: Comment on above: Please Note: New Angela t Units and Gender Specific Reference Ranges. For more information see Policy Stat Procedure [place] High Sensitivity Troponin (TNIH) and attachments. Estimated Creatinine Clearance Calc 48.75 ml/min [facility] Work Phone: Estimated GFR (MDRD) Amer 63 mL/min >60 [facility] Work Phone: Comment on above: GFR Calc Estimated GFR (MDRD) Non-Af Amer 52 mL/min >60 [facility] Work Phone: Comment on above: Non- GFR Calc Platelets bldon 03-30-2022 Platelets (Bld) [#/Vol] 300 10*3/uL 150-450 [facility] Work Phone: Serum or plasma calcium jhon urement (mass/volume)on 03-30-2022 Calcium [Mass/Vol] 9.1 mg/dL 8.5-10.1 [facility] Work Phone: Serum or plasma creatinine m easurement (mass/volume)on 03-30-2022 Creatinine [Mass/Vol] 1.43 mg/dL 0.70-1.30 [facility] Work Phone: Comment on above: The validity of the calculated GFR & GFRAA in patients over 70 years has not been determined. Clinical correlation is essential. Serum or plasma urea nitroge n measurement (mass/volume)on 03-30-2022 Urea nitrogen [Mass/Vol] 31 mg/dL 7-18 [facility] Work Phone: [phone] Thin prep Papanicolaou smear with manual screeningon 06-19-2022 Thin prep Papanicolaou smear with manual screening 7 5-15 [facility] Work Phone: Glucose Glucometer (BldC) [M ass/Vol]on 02-26-2022 Glucose [Mass/Vol] 112 mg/dL 74-106 [facility] Work Phone: Comment on above: MANAGEMENT OF PATIEN T CARE PER NURSING PROTOCOL Basophil percentageon 2021 Chloride [Moles/Vol] 103 mmol/L 98-107 [facility] Work Phone: Glucose [Mass/Vol] 140 mg/dL 74-106 [facility] Work Phone: Comment on above: Fasting Glucose resu lt greater than or equal to 126 mg/dL suggests DIABETES MELLITUS per A.D.A. criteria. Potassium [Moles/Vol] 4.6 mmol/L 3.5-5.1 [facility] Work Phone: Sodium [Moles/Vol] 136 mmol/L 136-145 [facility] Work Phone: Laboratory - Chemistry and C hemistry - challengeon 01-20-2022 CO2 [Moles/Vol] 30.0 mmol/L 21.0-32.0 [facility] Work Phone: Urea nitrogen/Creatinine [Mass ratio] 27.4 mg/mg 10-20 [facility] Work Phone: No Panel Informationon 01-20 Estimated GFR (MDRD) Amer 62 mL/min >60 [facility] Work Phone: Comment on above: GFR Calc Estimated GFR (MDRD) Non-Af Amer 51 mL/min >60 [facility] Work Phone: Comment on above: Non- GFR Calc Serum or plasma calcium jhon urement (mass/volume)on 01-20-2022 Calcium [Mass/Vol] 9.6 mg/dL 8.5-10.1 [facility] Work Phone: [phone] Serum or plasma creatinine m easurement (mass/volume)on 01-20-2022 Creatinine [Mass/Vol] 1.46 mg/dL 0.70-1.30 [facility] Work Phone: Comment on above: The validity of the calculated GFR & GFRAA in patients over 70 years has not been determined. Clinical correlation is essential. Serum or plasma urea nitroge n measurement (mass/volume)on 01-20-2022 Urea nitrogen [Mass/Vol] 40 mg/dL 7-18 [facility] Work Phone: Thin prep Papanicolaou smear with manual screeningon 01-20-2022 Thin prep Papanicolaou smear with manual screening 3 5-15 [facility] Work Phone: Absolute lymphocyte counton 01-02-2022 Lymphocytes Auto (Unsp spec) [#/Vol] 2.23 10*3/uL 0.83-4.51 [facility] Work Phone: Basophil percentageon 2021 Basophils/100 WBC (Bld) 0.4 % 0-1 [facility] Work Phone: Chloride [Moles/Vol] 105 mmol/L 98-107 [facility] Work Phone: Eosinophils/100 WBC (Bld) 1.8 % 0-5 [facility] Work Phone: Glucose [Mass/Vol] 185 mg/dL 74-106 [facility] Work Phone: Comment on above: Fasting Glucose resu lt greater than or equal to 126 mg/dL suggests DIABETES MELLITUS per A.D.A. criteria. Neutrophils (Bld) [#/Vol] 4.3 10*3/uL 2.0-7.7 [facility] Work Phone: Neutrophils/100 WBC (Bld) 58.6 % 47-70 [facility] Work Phone: Potassium [Moles/Vol] 4.3 mmol/L 3.5-5.1 [facility] Work Phone: Sodium [Moles/Vol] 137 mmol/L 136-145 [facility] Work Phone: WBC (Bld) [#/Vol] 7.3 10*3/uL 4.4-11.0 [facility] Work Phone: Blood erythrocytes count (nu mber/volume)on 01-02-2022 RBC (Bld) [#/Vol] 4.28 10*6/uL 4.6-6.2 [facility]: Blood hemoglobin measurement (mass/volume)on 01-02-2022 Hemoglobin (Bld) [Mass/Vol] 13.7 g/dL 13.0-16.5 [facility] Work Phone: Blood lymphocytes/100 leukoc yteson 01-02-2022 Lymphocytes/100 WBC (Bld) 30.5 % 19-41 [facility] Work Phone: Blood monocytes/100 leukocyt eson 01-02-2022 Monocytes/100 WBC (Bld) 8.4 % 0-10 [facility] Work Phone: Blood platelet mean volumeon 01-02-2022 Platelet mean volume (Bld) [Entitic vol] 9.3 fL 6.2-12.0 [facility] Work Phone: Determination of erythrocyte mean corpuscular volume (MCV)on 01-02-2022 MCV (RBC) [Entitic vol] 93.5 fL 80-94 [facility] Work Phone: Hematocrit Auto (Bld) [Volum e fraction]on 01-02-2022 Hematocrit (Bld) [Volume fraction] 40.0 % 40-54 [facility] Work Phone: INR in Blood by Coagulation assayon 01-02-2022 INR Coag (Bld) [Relative time] 1.1 {INR} [facility] Work Phone: Laboratory - Chemistry and C hemistry - challengeon 01-02-2022 CO2 [Moles/Vol] 26.0 mmol/L 21.0-32.0 [facility] Work Phone: Urea nitrogen/Creatinine [Mass ratio] 27.6 mg/mg 10-20 [facility] Work Phone: Laboratory - Coagulationon 0 01-02-2022 aPTT Coag (Bld) [Time] 27.1 s 24.1-36.[address] [facility] Work Phone: PT Coag (PPP) [Time] 13.1 s 11.7-14.[address] [facility] Work Phone: [phone] Laboratory - Hematology and Cell countson 01-02-2022 Erythrocyte distribution width (RBC) [Entitic vol] 42.8 fL 35.1-43.[address] [facility] Work Phone: [phone] Erythrocyte distribution width (RBC) [Ratio] 12.4 % 11.6-14.6 [facility] Work Phone: [phone] Immature granulocytes/100 WBC (Bld) 0.300 % 0.0-0.9 [facility] Work Phone: [phone] Comment on above: IG% - Immature Granu locytes (promyelocytes, myelocytes and metamyelocytes) > 1% indicates that a LEFT SHIFT is Present. MCH (RBC) [Entitic mass] 32.0 pg 27.0-32.0 [facility] Work Phone: Nucleated RBC/100 WBC (Bld) [Ratio] 0 % 0-5 [facility] Work Phone: [phone] MCHC Auto (RBC) [Mass/Vol]on 01-02-2022 MCHC (RBC) [Mass/Vol] 34.3 g/dL 32-36 [facility] Work Phone: No Panel Informationon 01-02 Estimated GFR (MDRD) Amer 80 mL/min >60 [facility] Work Phone: Comment on above: GFR Calc Estimated GFR (MDRD) Non-Af Amer 66 mL/min >60 [facility] Work Phone: Comment on above: Non- GFR Calc Platelets bldon 01-02-2022 Platelets (Bld) [#/Vol] 330 10*3/uL 150-450 [facility] Work Phone: Serum or plasma calcium jhon urement (mass/volume)on 01-02-2022 Calcium [Mass/Vol] 9.3 mg/dL 8.5-10.1 [facility] Work Phone: Serum or plasma creatinine m easurement (mass/volume)on 01-02-2022 Creatinine [Mass/Vol] 1.16 mg/dL 0.70-1.30 [facility] Work Phone: Comment on above: The validity of the calculated GFR & GFRAA in patients over 70 years has not been determined. Clinical correlation is essential. Serum or plasma urea nitroge n measurement (mass/volume)on 01-02-2022 Urea nitrogen [Mass/Vol] 32 mg/dL 7-18 [facility] Work Phone: Thin prep Papanicolaou smear with manual screeningon 01-02-2022 Thin prep Papanicolaou smear with manual screening 6 5-15 [facility] Work Phone: Absolute lymphocyte counton 10-02-2021 Lymphocytes Auto (Unsp spec) [#/Vol] 1.16 10*3/uL 0.83-4.51 [facility] Work Phone: Basophil percentageon 2020 Chloride [Moles/Vol] 100 mmol/L 98-107 [facility] Work Phone: Eosinophils/100 WBC (Bld) 1.2 % 0-5 [facility] Work Phone: Glucose [Mass/Vol] 223 mg/dL 74-106 [facility] Work Phone: Comment on above: Glucose result great er than or equal to 200 mg/dLsuggests DIABETES MELLITUS per A.D.A. criteria.Please note revised GLUCOSE reference range effective 2017. Neutrophils (Bld) [#/Vol] 6.9 10*3/uL 2.0-7.7 [facility] Work Phone: Potassium [Moles/Vol] 4.3 mmol/L 3.5-5.1 [facility] Work Phone: Sodium [Moles/Vol] 137 mmol/L 136-145 [facility] Work Phone: WBC (Bld) [#/Vol] 9.0 10*3/uL 4.4-11.0 [facility] Work Phone: Blood erythrocytes count (nu mber/volume)on 10-02-2021 RBC (Bld) [#/Vol] 4.49 10*6/uL 4.6[facility] Blood hemoglobin measurement (mass/volume)on 10-02-2021 Hemoglobin (Bld) [Mass/Vol] 14.2 g/dL 13.0-16.5 [facility] Work Phone: Blood lymphocytes/100 leukoc yteson 10-02-2021 Lymphocytes/100 WBC (Bld) 12.9 % 19-41 [facility] Work Phone: [phone] Blood monocytes/100 leukocyt eson 10-02-2021 Monocytes/100 WBC (Bld) 9.2 % 0-10 [facility] Work Phone: Blood platelet mean volumeon 10-02-2021 Platelet mean volume (Bld) [Entitic vol] 8.9 fL 6.2-12.0 [facility] Work Phone: Determination of erythrocyte mean corpuscular volume (MCV)on 10-02-2021 MCV (RBC) [Entitic vol] 93.3 fL 80-94 [facility] Work Phone: Hematocrit Auto (Bld) [Volum e fraction]on 10-02-2021 Hematocrit (Bld) [Volume fraction] 41.9 % 40-54 [facility] Work Phone: Laboratory - Chemistry and C hemistry - challengeon 10-02-2021 CO2 [Moles/Vol] 26.0 mmol/L 21.0-32.0 [facility] Work Phone: Urea nitrogen/Creatinine [Mass ratio] 25.2 mg/mg 10-20 [facility] Work Phone: Laboratory - Hematology and Cell countson 10-02-2021 Basophils/100 WBC (Unsp spec) 0.3 % 0-1 [facility] Work Phone: [phone] Erythrocyte distribution width (RBC) [Entitic vol] 44.9 fL 35.1-43.9 [facility] Work Phone: [phone] Erythrocyte distribution width (RBC) [Ratio] 13.2 % 11.6-14.6 [facility] Work Phone: [phone] Immature granulocytes/100 WBC (Bld) 0.300 % 0.0-0.9 [facility] Work Phone: [phone] Comment on above: IG% - Immature Granu locytes (promyelocytes, myelocytes and metamyelocytes) > 1% indicates that a LEFT SHIFT is Present. MCH (RBC) [Entitic mass] 31.6 pg 27.0-32.0 [facility] Work Phone: [phone] Neutrophils/100 WBC (Bld) 76.1 % 47-70 [facility] Work Phone: [phone] Nucleated RBC/100 WBC (Bld) [Ratio] 0 % 0-5 [facility] Work Phone: [phone] MCHC Auto (RBC) [Mass/Vol]on 10-02-2021 MCHC (RBC) [Mass/Vol] 33.9 g/dL 32-36 [facility]: [phone] Panel Informationon 10-02 Troponin I High Sensitivity 7 pg/mL 3.0-78.0 [facility] Work Phone: [phone] Comment on above: Please Note: New Angela t Units and Gender Specific Reference Ranges. For more information see Policy Stat Procedure [place] High Sensitivity Troponin (TNIH) and attachments. SARS-CoV-2 Antigen (Rapid) [facility] Work Phone: [phone] Estimated Creatinine Clearance Calc 52.37 ml/min [facility] Work Phone: [phone] Estimated GFR (MDRD) Amer 67 mL/min >60 [facility] Work Phone: Comment on above: GFR Calc Estimated GFR (MDRD) Non-Af Amer 56 mL/min >60 [facility] Work Phone: Comment on above: Non- GFR Calc Platelets bldon 10-02-2021 Platelets (Bld) [#/Vol] 387 10*3/uL 150-450 [facility] Work Phone: Serum or plasma calcium jhon urement (mass/volume)on 10-02-2021 Calcium [Mass/Vol] 9.3 mg/dL 8.5-10.1 [facility] Work Phone: Serum or plasma creatinine m easurement (mass/volume)on 10-02-2021 Creatinine [Mass/Vol] 1.35 mg/dL 0.70-1.30 [facility] Work Phone: Comment on above: The validity of the calculated GFR & GFRAA in patients over 70 years has not been determined. Clinical correlation is essential. Serum or plasma urea nitroge n measurement (mass/volume)on 10-02-2021 Urea nitrogen [Mass/Vol] 34 mg/dL 7-18 [facility] Work Phone: Thin prep Papanicolaou smear with manual screeningon 10-02-2021 Thin prep Papanicolaou smear with manual screening 11 5-15 [facility] Work Phone: Absolute lymphocyte counton 09-23-2021 Lymphocytes Auto (Unsp spec) [#/Vol] 2.42 10*3/uL 0.83-4.51 [facility] Work Phone: Basophil percentageon 2020 Bilirubin [Mass/Vol] 0.30 mg/dL 0.20-1.00 [facility] Work Phone: Comment on above: For patients on eltr ombopag therapy, use of Dimension [place] TBIL is not recommended. Chloride [Moles/Vol] 105 mmol/L 98-107 [facility] Work Phone: Eosinophils/100 WBC (Bld) 1.1 % 0-5 [facility] Work Phone: Glucose [Mass/Vol] 156 mg/dL 74-106 [facility] Work Phone: Comment on above: Fasting Glucose resu lt greater than or equal to 126 mg/dL suggests DIABETES MELLITUS per A.D.A. criteria.Please note revised GLUCOSE reference range effective 2017. Neutrophils (Bld) [#/Vol] 5.9 10*3/uL 2.0-7.7 [facility] Work Phone: Potassium [Moles/Vol] 4.6 mmol/L 3.5-5.1 [facility] Work Phone: Protein [Mass/Vol] 8.0 g/dL 6.4-8.2 [facility] Work Phone: Sodium [Moles/Vol] 137 mmol/L 136-145 [facility] Work Phone: WBC (Bld) [#/Vol] 9.2 10*3/uL 4.4-11.0 [facility] Work Phone: Blood erythrocytes count (nu mber/volume)on 09-23-2021 RBC (Bld) [#/Vol] 4.51 10*6/uL 4.6-6.2 [facility] Work Phone: Blood hemoglobin measurement (mass/volume)on 09-23-2021 Hemoglobin (Bld) [Mass/Vol] 14.3 g/dL 13.0-16.5 [facility] Work Phone: Blood lymphocytes/100 leukoc yteson 09-23-2021 Lymphocytes/100 WBC (Bld) 26.2 % 19-41 [facility] Work Phone: Blood monocytes/100 leukocyt eson 09-23-2021 Monocytes/100 WBC (Bld) 7.9 % 0-10 [facility] Work Phone: Blood platelet mean volumeon 09-23-2021 Platelet mean volume (Bld) [Entitic vol] 9.3 fL 6.2-12.0 [facility] Work Phone: [phone] Determination of erythrocyte mean corpuscular volume (MCV)on 09-23-2021 MCV (RBC) [Entitic vol] 93.8 fL 80-94 [facility] Work Phone: [phone] Hematocrit Auto (Bld) [Volum e fraction]on 09-23-2021 Hematocrit (Bld) [Volume fraction] 42.3 % 40-54 [facility] Work Phone: [phone] Laboratory - Chemistry and C hemistry - challengeon 09-23-2021 ALP [Catalytic activity/Vol] 80 U/L 45-117 [facility] Work Phone: [phone] ALT [Catalytic activity/Vol] 41 U/L 16-61 [facility] Work Phone: [phone] CO2 [Moles/Vol] 24.0 mmol/L 21.0-32.0 [facility] Work Phone: [phone] Globulin (S) [Mass/Vol] 4.6 g/dL 2.2-4.2 [facility] Work Phone: [phone] Urea nitrogen/Creatinine [Mass ratio] 27.4 mg/mg 10-20 [facility] Work Phone: [phone] Laboratory - Hematology and Cell countson 09-23-2021 Basophils/100 WBC (Unsp spec) 0.4 % 0-1 [facility] Work Phone: [phone] Erythrocyte distribution width (RBC) [Entitic vol] 44.0 fL 35.1-43.9 [facility]: [phone] Erythrocyte distribution width (RBC) [Ratio] 12.9 % 11.6-14.6 [facility] Work Phone: [phone] Immature granulocytes/100 WBC (Bld) 0.700 % 0.0-0.9 [facility] Work Phone: [phone] Comment on above: IG% - Immature Granu locytes (promyelocytes, myelocytes and metamyelocytes) > 1% indicates that a LEFT SHIFT is Present. MCH (RBC) [Entitic mass] 31.7 pg 27.0-32.0 [facility] Work Phone: Neutrophils/100 WBC (Bld) 63.7 % 47-70 [facility] Work Phone: Nucleated RBC/100 WBC (Bld) [Ratio] 0 % 0-5 [facility] Work Phone: MCHC Auto (RBC) [Mass/Vol]on 09-23-2021 MCHC (RBC) [Mass/Vol] 33.8 g/dL 32-36 [facility] Work Phone: No Panel Informationon 09-23 Estimated GFR (MDRD) Amer 80 mL/min >60 [facility] Work Phone: Comment on above: GFR Calc Estimated GFR (MDRD) Non-Af Amer 66 mL/min >60 [facility] Work Phone: Comment on above: Non- GFR Calc Thyroid Stimulating Hormone (TSH) 1.08 uIU/mL 0.358-3.74 [facility] Work Phone: Vitamin D 25-Hydroxy 34.2 ng/mL [facility] Work Phone: Comment on above: Vitamin D 25(OH) Sta tus Range Deficiency <20 ng/mL (50nmol/L) Insufficiency 20 - 30 ng/mL (50 - 75 nmol/L) Sufficiency 30 - 100 ng/mL (75 - 250 nmol/L) Toxicity >100 ng/mL (>250 nmol/L) Platelets bldon 09-23-2021 Platelets (Bld) [#/Vol] 398 10*3/uL 150-450 [facility] Work Phone: Serum or plasma albumin jhon urement (mass/volume)on 09-23-2021 Albumin [Mass/Vol] 3.4 g/dL 3.2-5.0 [facility] Work Phone: Serum or plasma albumin/glob ulin mass ratioon 09-23-2021 Albumin/Globulin [Mass ratio] 0.7 {ratio} 0.9-2.4 [facility] Work Phone: Serum or plasma calcium jhon urement (mass/volume)on 09-23-2021 Calcium [Mass/Vol] 9.7 mg/dL 8.5-10.1 [facility] Work Phone: Serum or plasma creatinine m easurement (mass/volume)on 09-23-2021 Creatinine [Mass/Vol] 1.17 mg/dL 0.70-1.30 [facility] Work Phone: Comment on above: The validity of the calculated GFR & GFRAA in patients over 70 years has not been determined. Clinical correlation is essential. Serum or plasma urea nitroge n measurement (mass/volume)on 09-23-2021 Urea nitrogen [Mass/Vol] 32 mg/dL 7-18 [facility] Work Phone: Thin prep Papanicolaou smear with manual screeningon 09-23-2021 Thin prep Papanicolaou smear with manual screening 19 U/L 15-37 [facility] Work Phone: Thin prep Papanicolaou smear with manual screening 8 5-15 [facility] Work Phone: Vital Signs Date Time Vital Sign Value Performing Clinician Kenny segura 03-27-2025 11:45-0400 Body height 175.[address] Timmy Floyd MD Work Phone: [facility] 03-27-2025 11:45-0400 Body mass index (BMI) [Ratio] 28.2 kg/m2 Dr. Timmy Floyd MD Work Phone: [facility] 03-27-2025 11:45-0400 Body temperature 98.9 [degF] Dr. Timmy Floyd MD Work Phone: [facility] 03-27-2025 11:45-0400 Body weight 86.[address] Timmy Floyd MD Work Phone: [facility] 03-27-2025 11:45-0400 Diastolic blood pressure 71 mm[Hg] Dr. Timmy Floyd MD Work Phone: [facility] 03-27-2025 11:45-0400 Heart rate 90 /min Dr. Timmy Floyd MD Work Phone: [facility] 03-27-2025 11:45-0400 Respiratory rate 18 /min Dr. Timmy Floyd MD Work Phone: [facility] 03-27-2025 11:45-0400 SaO2% (BldA) [Mass fraction] 94 % Dr. Timmy Floyd MD Work Phone: [facility] 03-27-2025 11:45-0400 Systolic blood pressure 115 mm[Hg] Dr. Timmy Floyd MD Work Phone: [facility] 03-13-2025 13:43-0400 Body height 175.[address] Timmy Floyd MD Work Phone: [facility] 03-13-2025 13:43-0400 Body mass index (BMI) [Ratio] 28.2 kg/m2 Dr. Timmy Floyd MD Work Phone: [facility] 03-13-2025 13:43-0400 Body temperature 97.6 [degF] Dr. Timmy Floyd MD Work Phone: [facility] 03-13-2025 13:43-0400 Body weight 86.[address] Timmy Floyd MD Work Phone: [facility] 03-13-2025 13:43-0400 Diastolic blood pressure 66 mm[Hg] Dr. Timmy Floyd MD Work Phone: [facility] 03-13-2025 13:43-0400 Heart rate 86 /min Dr. Timmy Floyd MD Work Phone: [facility] 03-13-2025 13:43-0400 Respiratory rate 18 /min Dr. Timmy Floyd MD Work Phone: [facility] 03-13-2025 13:43-0400 SaO2% (BldA) [Mass fraction] 95 % Dr. Timmy Floyd MD Work Phone: [facility] 03-13-2025 13:43-0400 Systolic blood pressure 120 mm[Hg] Dr. Timmy Floyd MD Work Phone: [facility] 01-09-2025 15:05-0400 Body height 175.[address] Timmy Floyd MD Work Phone: [facility] 01-09-2025 15:05-0400 Body mass index (BMI) [Ratio] 28 kg/m2 Dr. Timmy Floyd MD Work Phone: [facility] 01-09-2025 15:05-0400 Body weight 86.[address] Timmy Floyd MD Work Phone: [facility] 01-09-2025 15:03-0400 Body temperature 98.4 [degF] Dr. Timmy Floyd MD Work Phone: [facility] 01-09-2025 15:03-0400 Diastolic blood pressure 65 mm[Hg] Dr. Timmy Floyd MD Work Phone: [facility] 01-09-2025 15:03-0400 Heart rate 95 /min Dr. Timmy Floyd MD Work Phone: [facility] 01-09-2025 15:03-0400 Respiratory rate 18 /min Dr. Timmy Floyd MD Work Phone: [facility] 01-09-2025 15:03-0400 SaO2% (BldA) [Mass fraction] 94 % Dr. Timmy Floyd MD Work Phone: [facility] 01-09-2025 15:03-0400 Systolic blood pressure 109 mm[Hg] Dr. Tmimy Floyd MD Work Phone: [facility] 01-02-2025 15:17-0400 Body height 175.[address] Timmy Floyd MD Work Phone: [facility] 01-02-2025 15:17-0400 Body mass index (BMI) [Ratio] 27.7 kg/m2 Dr. Timmy Floyd MD Work Phone: [facility] 01-02-2025 15:17-0400 Body temperature 97.3 [degF] Dr. Timmy Floyd MD Work Phone: [facility] 01-02-2025 15:17-0400 Body weight 85.[address] Timmy Floyd MD Work Phone: [facility] 01-02-2025 15:17-0400 Diastolic blood pressure 60 mm[Hg] Dr. Timmy Floyd MD Work Phone: [facility] 01-02-2025 15:17-0400 Heart rate 80 /min Dr. Timmy Floyd MD Work Phone: [facility] 01-02-2025 15:17-0400 Respiratory rate 14 /min Dr. Timmy Floyd MD Work Phone: [facility] 01-02-2025 15:17-0400 SaO2% (BldA) [Mass fraction] 96 % Dr. Timmy Floyd MD Work Phone: [facility] 01-02-2025 15:17-0400 Systolic blood pressure 118 mm[Hg] Dr. Timmy Floyd MD Work Phone: [facility] 12-21-2024 15:44-0400 Body height 175.[address] Timmy Floyd MD Work Phone: [facility] 12-21-2024 15:44-0400 Body mass index (BMI) [Ratio] 28.2 kg/m2 Dr. Timmy Floyd MD Work Phone: [facility] 12-21-2024 15:44-0400 Body temperature 98 [degF] Dr. Timmy Floyd MD Work Phone: [facility] 12-21-2024 15:44-0400 Body weight 86.[address] Timmy Floyd MD Work Phone: [facility] 12-21-2024 15:44-0400 Diastolic blood pressure 78 mm[Hg] Dr. Timmy Floyd MD Work Phone: [facility] 12-21-2024 15:44-0400 Heart rate 84 /min Dr. Timmy Floyd MD Work Phone: [facility] 12-21-2024 15:44-0400 Respiratory rate 14 /min Dr. Timmy Floyd MD Work Phone: [facility] 12-21-2024 15:44-0400 SaO2% (BldA) [Mass fraction] 98 % Dr. Timmy Floyd MD Work Phone: [facility] 12-21-2024 15:44-0400 Systolic blood pressure 124 mm[Hg] Dr. Timmy Floyd MD Work Phone: [facility] 12-01-2024 13:28-0500 Body mass index (BMI) [Ratio] 29 kg/m2 Dr. Timmy Floyd MD Work Phone: [facility] 12-01-2024 13:28-0500 Body temperature 97.4 [degF] Dr. Timmy Floyd MD Work Phone: [facility] 12-01-2024 13:28-0500 Body weight 89.[address] Timmy Floyd MD Work Phone: [facility] 12-01-2024 13:28-0500 Diastolic blood pressure 78 mm[Hg] Dr. Timmy Floyd MD Work Phone: [facility] 12-01-2024 13:28-0500 Heart rate 86 /min Dr. Timmy Floyd MD Work Phone: [facility] 12-01-2024 13:28-0500 Respiratory rate 16 /min Dr. Timmy Floyd MD Work Phone: [facility] 12-01-2024 13:28-0500 SaO2% (BldA) [Mass fraction] 95 % Dr. Timmy Floyd MD Work Phone: [facility] 12-01-2024 13:28-0500 Systolic blood pressure 132 mm[Hg] Dr. Timmy Floyd MD Work Phone: [facility] 11-21-2024 15:52-0500 SaO2% (BldA) [Mass fraction] 98 % Dr. Timmy Floyd MD Work Phone: [facility] 11-21-2024 15:42-0500 Body temperature 98.2 [degF] Dr. Timmy Floyd MD Work Phone: [facility] 11-21-2024 15:42-0500 Diastolic blood pressure 78 mm[Hg] Dr. Timmy Floyd MD Work Phone: [facility] 11-21-2024 15:42-0500 Heart rate 93 /min Dr. Timmy Floyd MD Work Phone: [facility] 11-21-2024 15:42-0500 Respiratory rate 12 /min Dr. Timmy Floyd MD Work Phone: [facility] 11-21-2024 15:42-0500 Systolic blood pressure 130 mm[Hg] Dr. Timmy Floyd MD Work Phone: [facility] 11-11-2024 09:50-0500 Body mass index (BMI) [Ratio] 28.8 kg/m2 Dr. Timmy Floyd MD Work Phone: [facility] 11-11-2024 09:50-0500 Body weight 88.[address] Timmy Floyd MD Work Phone: [facility] 11-11-2024 09:50-0500 Diastolic blood pressure 74 mm[Hg] Dr. Timmy Floyd MD Work Phone: [facility] 11-11-2024 09:50-0500 Heart rate 70 /min Dr. Timmy Floyd MD Work Phone: [facility] 11-11-2024 09:50-0500 Respiratory rate 18 /min Dr. Timmy Floyd MD Work Phone: [facility] 11-11-2024 09:50-0500 SaO2% (BldA) [Mass fraction] 94 % Dr. Timmy Floyd MD Work Phone: [facility] 11-11-2024 09:50-0500 Systolic blood pressure 125 mm[Hg] Dr. Timmy Floyd MD Work Phone: [facility] 12-03-2023 14:08-0500 Body height 175.[address] Timmy Floyd Work Phone: [facility] 12-03-2023 14:08-0500 Body mass index (BMI) [Ratio] 28 kg/m2 Dr. Timmy Floyd Work Phone: [facility] 12-03-2023 14:08-0500 Body temperature 97.2 [degF] Dr. Timmy Floyd Work Phone: [facility] 12-03-2023 14:08-0500 Body weight 86.[address] Timmy Floyd Work Phone: [facility] 12-03-2023 14:08-0500 Diastolic blood pressure 62 mm[Hg] Dr. Timmy Floyd Work Phone: [facility] 12-03-2023 14:08-0500 Heart rate 61 /min Dr. Timmy Floyd Work Phone: [facility] 12-03-2023 14:08-0500 Respiratory rate 16 /min Dr. Timmy Floyd Work Phone: [facility] 12-03-2023 14:08-0500 SaO2% (BldA) [Mass fraction] 95 % Dr. Timmy Floyd Work Phone: [facility] 12-03-2023 14:08-0500 Systolic blood pressure 120 mm[Hg] Dr. Timmy Floyd Work Phone: [facility] 08-28-2023 10:16-0500 Body mass index (BMI) [Ratio] 30.7 kg/m2 Dr. Timmy Floyd Work Phone: [facility] 08-28-2023 10:16-0500 Body temperature 97 [degF] Dr. Timmy Floyd Work Phone: [facility] 08-28-2023 10:16-0500 Body weight 94.[address] Timmy Floyd Work Phone: [facility] 08-28-2023 10:16-0500 Diastolic blood pressure 76 mm[Hg] Dr. Timmy Floyd Work Phone: [facility] 08-28-2023 10:16-0500 Heart rate 83 /min Dr. Timmy Floyd Work Phone: [facility] 08-28-2023 10:16-0500 Respiratory rate 16 /min Dr. Timmy Floyd Work Phone: [facility] 08-28-2023 10:16-0500 SaO2% (BldA) [Mass fraction] 96 % Dr. Timmy Floyd Work Phone: [facility] 08-28-2023 10:16-0500 Systolic blood pressure 122 mm[Hg] Dr. Timmy Floyd Work Phone: [facility] 05-11-2023 07:51-0400 Body height 175.[address] Adam Alex Work Phone: [facility] 05-11-2023 07:51-0400 Body mass index (BMI) [Ratio] 30 kg/m2 Dr. Adam Alex Work Phone: [facility] 05-11-2023 07:51-0400 Body temperature 97.3 [degF] Dr. Adam Alex Work Phone: [facility] 05-11-2023 07:51-0400 Body weight 92.[address] Adam Alex Work Phone: [facility] 05-11-2023 07:51-0400 Diastolic blood pressure 72 mm[Hg] Dr. Adam Alex Work Phone: [facility] 05-11-2023 07:51-0400 Heart rate 75 /min Dr. Adam Alex Work Phone: [facility] 05-11-2023 07:51-0400 Respiratory rate 18 /min Dr. Adam Alex Work Phone: [facility] 05-11-2023 07:51-0400 SaO2% (BldA) [Mass fraction] 95 % Dr. Adam Alex Work Phone: [facility] 05-11-2023 07:51-0400 Systolic blood pressure 124 mm[Hg] Dr. Adam Alex Work Phone: [facility] 04-24-2023 21:33-0400 Body height 175.[address] Adam Alex Work Phone: [facility] 04-24-2023 21:33-0400 Body mass index (BMI) [Ratio] 29.5 kg/m2 Dr. Adam Alex Work Phone: [facility] 04-24-2023 21:33-0400 Body temperature 97.6 [degF] Dr. Adam Alex Work Phone: [facility] 04-24-2023 21:33-0400 Body weight 90.[address] Adam Alex Work Phone: [facility] 04-24-2023 21:33-0400 Diastolic blood pressure 86 mm[Hg] Dr. Adam Alex Work Phone: [facility] 04-24-2023 21:33-0400 Heart rate 96 /min Dr. Adam Alex Work Phone: [facility] 04-24-2023 21:33-0400 Respiratory rate 18 /min Dr. Adam Alex Work Phone: [facility] 04-24-2023 21:33-0400 SaO2% (BldA) [Mass fraction] 95 % Dr. Adam Alex Work Phone: [facility] 04-24-2023 21:33-0400 Systolic blood pressure 155 mm[Hg] Dr. Adam Alex Work Phone: [facility] 02-03-2023 06:45-0400 Body mass index (BMI) [Ratio] 30.1 kg/m2 Dr. Adam Alex Work Phone: [facility] 02-03-2023 06:45-0400 Body temperature 97.1 [degF] Dr. Adam Alex Work Phone: [facility] 02-03-2023 06:45-0400 Body weight 92.[address] Adam Alex Work Phone: [facility] 02-03-2023 06:45-0400 Diastolic blood pressure 68 mm[Hg] Dr. Adam Alex Work Phone: [facility] 02-03-2023 06:45-0400 Heart rate 77 /min Dr. Adam Alex Work Phone: [facility] 02-03-2023 06:45-0400 Respiratory rate 18 /min Dr. Adam Alex Work Phone: [facility] 02-03-2023 06:45-0400 SaO2% (BldA) [Mass fraction] 94 % Dr. Adam Alex Work Phone: [facility] 02-03-2023 06:45-0400 Systolic blood pressure 116 mm[Hg] Dr. Adam Alex Work Phone: [facility] 05-15-2022 08:15-0400 Body height 175.[address] Adam Alex Work Phone: [facility] Work Phone: 05-15-2022 08:15-0400 Body mass index (BMI) [Ratio] 28 kg/m2 Dr. Adam Alex Work Phone: [facility] Work Phone: 05-15-2022 08:15-0400 Body temperature 97.4 [degF] Dr. Adam Alex Work Phone: [facility] Work Phone: 05-15-2022 08:15-0400 Body weight 86.[address] Adam Alex Work Phone: [facility] Work Phone: 05-15-2022 08:15-0400 Diastolic blood pressure 71 mm[Hg] Dr. Adam Alex Work Phone: [facility] Work Phone: 05-15-2022 08:15-0400 Heart rate 89 /min Dr. Adam Alex Work Phone: [facility] Work Phone: 05-15-2022 08:15-0400 Respiratory rate 16 /min Dr. Adam Alex Work Phone: [facility] Work Phone: 05-15-2022 08:15-0400 SaO2% (BldA) [Mass fraction] 96 % Dr. Adam Alex Work Phone: [facility] Work Phone: 05-15-2022 08:15-0400 Systolic blood pressure 126 mm[Hg] Dr. Adam Alex Work Phone: [facility] Work Phone: 04-03-2022 10:34-0400 Body height 175.[address] Adam Alex Work Phone: [facility] Work Phone: 04-03-2022 10:34-0400 Body mass index (BMI) [Ratio] 30.4 kg/m2 Dr. Adam Alex Work Phone: [facility] Work Phone: 04-03-2022 10:34-0400 Body weight 93.[address] Adam Alex Work Phone: [facility] Work Phone: 04-03-2022 10:34-0400 Diastolic blood pressure 61 mm[Hg] Dr. Adam Alex Work Phone: [facility] Work Phone: 04-03-2022 10:34-0400 Heart rate 72 /min Dr. Adam Alex Work Phone: [facility] Work Phone: 04-03-2022 10:34-0400 Respiratory rate 16 /min Dr. Adam Alex Work Phone: [facility] Work Phone: 04-03-2022 10:34-0400 Systolic blood pressure 115 mm[Hg] Dr. Adam Alex Work Phone: [facility] Work Phone: 03-31-2022 13:46-0400 Body temperature 98.1 [degF] Dr. Adam Alex Work Phone: [facility] Work Phone: 03-31-2022 13:46-0400 Diastolic blood pressure 60 mm[Hg] Dr. Adam Alex Work Phone: [facility] Work Phone: 03-31-2022 13:46-0400 Heart rate 63 /min Dr. Adam Alex Work Phone: [facility] Work Phone: 03-31-2022 13:46-0400 Respiratory rate 18 /min Dr. Adam Alex Work Phone: [facility] Work Phone: 03-31-2022 13:46-0400 SaO2% (BldA) [Mass fraction] 98 % Dr. Adam Alex Work Phone: [facility] Work Phone: 03-31-2022 13:46-0400 Systolic blood pressure 126 mm[Hg] Dr. Adam Alex Work Phone: [facility] Work Phone: 03-31-2022 00:26-0400 Body height 175.[address] Adam Alex Work Phone: [facility] Work Phone: 03-31-2022 00:26-0400 Body mass index (BMI) [Ratio] 30.7 kg/m2 Dr. Adam Alex Work Phone: [facility] Work Phone: 03-31-2022 00:26-0400 Body weight 94.[address] Adam Alex Work Phone: [facility] Work Phone: 03-26-2022 08:05-0400 Body mass index (BMI) [Ratio] 30.1 kg/m2 Dr. Adam Alex Work Phone: [facility] Work Phone: 03-26-2022 08:05-0400 Body weight 92.[address] Adam Alex Work Phone: [facility] Work Phone: 03-26-2022 08:05-0400 Diastolic blood pressure 71 mm[Hg] Dr. Adam Alex Work Phone: [facility] Work Phone: 03-26-2022 08:05-0400 Heart rate 74 /min Dr. Adam Alex Work Phone: [facility] Work Phone: 03-26-2022 08:05-0400 SaO2% (BldA) [Mass fraction] 95 % Dr. Adam Alex Work Phone: [facility] Work Phone: 03-26-2022 08:05-0400 Systolic blood pressure 117 mm[Hg] Dr. Adam Alex Work Phone: [facility] Work Phone: 02-26-2022 07:50-0400 Body temperature 97.1 [degF] Dr. Adam Alex Work Phone: [facility] Work Phone: 02-26-2022 07:50-0400 Diastolic blood pressure 63 mm[Hg] Dr. Adam Alex Work Phone: [facility] Work Phone: 02-26-2022 07:50-0400 Heart rate 67 /min Dr. Adam Alex Work Phone: [facility] Work Phone: 02-26-2022 07:50-0400 Respiratory rate 14 /min Dr. Adam Alex Work Phone: [facility] Work Phone: 02-26-2022 07:50-0400 SaO2% (BldA) [Mass fraction] 95 % Dr. Adam Alex Work Phone: [facility] Work Phone: 02-26-2022 07:50-0400 Systolic blood pressure 100 mm[Hg] Dr. Adam Alex Work Phone: [facility] Work Phone: 02-26-2022 06:43-0400 Body height 175.[address] Adam Alex Work Phone: [facility] Work Phone: 02-26-2022 06:43-0400 Body mass index (BMI) [Ratio] 30.2 kg/m2 Dr. Adam Alex Work Phone: [facility] Work Phone: 02-26-2022 06:43-0400 Body weight 92.[address] Adam Alex Work Phone: [facility] Work Phone: 02-20-2022 14:18-0400 Body mass index (BMI) [Ratio] 30.2 kg/m2 Dr. Adam Alex Work Phone: [facility] Work Phone: 02-20-2022 14:18-0400 Body temperature 97.7 [degF] Dr. Adam Alex Work Phone: [facility] Work Phone: 02-20-2022 14:18-0400 Body weight 92.[address] Adam Alex Work Phone: [facility] Work Phone: 02-20-2022 14:18-0400 Diastolic blood pressure 74 mm[Hg] Dr. Adam Alex Work Phone: [facility] Work Phone: 02-20-2022 14:18-0400 Heart rate 77 /min Dr. Adam Alex Work Phone: [facility] Work Phone: 02-20-2022 14:18-0400 Respiratory rate 17 /min Dr. Adam Alex Work Phone: [facility] Work Phone: 02-20-2022 14:18-0400 SaO2% (BldA) [Mass fraction] 95 % Dr. Adam Alex Work Phone: [facility] Work Phone: 02-20-2022 14:18-0400 Systolic blood pressure 116 mm[Hg] Dr. Adam Alex Work Phone: [facility] Work Phone: 02-20-2022 14:18-0400 Body mass index (BMI) [Ratio] 30.2 kg/m2 Dr. Adam Alex Work Phone: [facility] Work Phone: 02-20-2022 14:18-0400 Body temperature 97.7 [degF] Dr. Adam Alex Work Phone: [facility] Work Phone: 02-20-2022 14:18-0400 Body weight 92.[address] Adam Alex Work Phone: [facility] Work Phone: 02-20-2022 14:18-0400 Diastolic blood pressure 74 mm[Hg] Dr. Adam Alex Work Phone: [facility] Work Phone: 02-20-2022 14:18-0400 Heart rate 77 /min Dr. Adam Alex Work Phone: [facility] Work Phone: 02-20-2022 14:18-0400 Respiratory rate 17 /min Dr. Adam Alex Work Phone: [facility] Work Phone: 02-20-2022 14:18-0400 SaO2% (BldA) [Mass fraction] 95 % Dr. Adam Alex Work Phone: [facility] Work Phone: 02-20-2022 14:18-0400 Systolic blood pressure 116 mm[Hg] Dr. Adam Alex Work Phone: [facility] Work Phone: 02-06-2022 13:43-0400 Body height 175.[address] Adam Alex Work Phone: [facility] Work Phone: 02-06-2022 13:43-0400 Body weight 90.[address] Adam Alex Work Phone: [facility] Work Phone: 02-06-2022 13:43-0400 Heart rate 82 /min Dr. Adam Alex Work Phone: [facility] Work Phone: 02-06-2022 13:43-0400 SaO2% (BldA) [Mass fraction] 98 % Dr. Adam Alex Work Phone: [facility] Work Phone: 01-20-2022 14:02-0400 Body mass index (BMI) [Ratio] 29.5 kg/m2 Dr. Adam Alex Work Phone: [facility] Work Phone: 01-20-2022 14:02-0400 Body temperature 98.9 [degF] Dr. Adam Alex Work Phone: [facility] Work Phone: 01-20-2022 14:02-0400 Body weight 90.[address] Adam Alex Work Phone: [facility] Work Phone: 01-20-2022 14:02-0400 Diastolic blood pressure 70 mm[Hg] Dr. Adam Alex Work Phone: [facility] Work Phone: 01-20-2022 14:02-0400 Heart rate 88 /min Dr. Adam Alex Work Phone: [facility] Work Phone: 01-20-2022 14:02-0400 Respiratory rate 17 /min Dr. Adam Alex Work Phone: [facility] Work Phone: 01-20-2022 14:02-0400 SaO2% (BldA) [Mass fraction] 95 % Dr. Adam Alex Work Phone: [facility] Work Phone: 01-20-2022 14:02-0400 Systolic blood pressure 106 mm[Hg] Dr. Adam Alex Work Phone: [facility] Work Phone: 01-20-2022 14:02-0400 Body height 175.[address] Adam Alex Work Phone: [facility] Work Phone: 01-20-2022 14:02-0400 Body mass index (BMI) [Ratio] 29.5 kg/m2 Dr. Adam Alex Work Phone: [facility] Work Phone: 01-20-2022 14:02-0400 Body temperature 98.9 [degF] Dr. Adam Alex Work Phone: [facility] Work Phone: 01-20-2022 14:02-0400 Body weight 90.[address] Adam Alex Work Phone: [facility] Work Phone: 01-20-2022 14:02-0400 Diastolic blood pressure 70 mm[Hg] Dr. Adam Alex Work Phone: [facility] Work Phone: 01-20-2022 14:02-0400 Heart rate 88 /min Dr. Adam Alex Work Phone: [facility] Work Phone: 01-20-2022 14:02-0400 Respiratory rate 17 /min Dr. Adam Alex Work Phone: [facility] Work Phone: 01-20-2022 14:02-0400 SaO2% (BldA) [Mass fraction] 95 % Dr. Adam Alex Work Phone: [facility] Work Phone: 01-20-2022 14:02-0400 Systolic blood pressure 106 mm[Hg] Dr. Adam Alex Work Phone: [facility] Work Phone: 01-16-2022 07:03-0400 Body height 175.[address] Adam Alex Work Phone: [facility] Work Phone: 01-16-2022 07:03-0400 Body weight 90.[address] Adam Alex Work Phone: [facility] Work Phone: 01-15-2022 08:16-0400 Body mass index (BMI) [Ratio] 29.5 kg/m2 Dr. Adam Alex Work Phone: [facility] Work Phone: 01-02-2022 11:37-0400 Body mass index (BMI) [Ratio] 29.5 kg/m2 Dr. Adam Alex Work Phone: [facility] Work Phone: 01-02-2022 11:37-0400 Body weight 90.[address] Adam Alex Work Phone: [facility] Work Phone: 01-02-2022 11:37-0400 Diastolic blood pressure 62 mm[Hg] Dr. Adam Alex Work Phone: [facility] Work Phone: 01-02-2022 11:37-0400 Heart rate 82 /min Dr. Adam Alex Work Phone: [facility] Work Phone: 01-02-2022 11:37-0400 Respiratory rate 18 /min Dr. Adam Alex Work Phone: [facility] Work Phone: 01-02-2022 11:37-0400 Systolic blood pressure 120 mm[Hg] Dr. Adam Alex Work Phone: [facility] Work Phone: 01-02-2022 11:37-0400 Body mass index (BMI) [Ratio] 29.5 kg/m2 Dr. Adam Alex Work Phone: [facility] Work Phone: 01-02-2022 11:37-0400 Body weight 90.[address] Adam Alex Work Phone: [facility] Work Phone: 01-02-2022 11:37-0400 Diastolic blood pressure 62 mm[Hg] Dr. Adam Alex Work Phone: [facility] Work Phone: 01-02-2022 11:37-0400 Heart rate 82 /min Dr. Adam Alex Work Phone: [facility] Work Phone: 01-02-2022 11:37-0400 Respiratory rate 18 /min Dr. Adam Alex Work Phone: [facility] Work Phone: 01-02-2022 11:37-0400 Systolic blood pressure 120 mm[Hg] Dr. Adam Alex Work Phone: [facility] Work Phone: 10-02-2021 18:37-0500 Diastolic blood pressure 72 mm[Hg] Dr. Adam Alex Work Phone: [facility] Work Phone: 10-02-2021 18:37-0500 Heart rate 93 /min Dr. Adam Alex Work Phone: [facility] Work Phone: 10-02-2021 18:37-0500 Respiratory rate 20 /min Dr. Adam Alex Work Phone: [facility] Work Phone: 10-02-2021 18:37-0500 SaO2% (BldA) [Mass fraction] 95 % Dr. Adam Alex Work Phone: [facility] Work Phone: 10-02-2021 18:37-0500 Systolic blood pressure 119 mm[Hg] Dr. Adam Alex Work Phone: [facility] Work Phone: 10-02-2021 13:52-0500 Body mass index (BMI) [Ratio] 29.5 kg/m2 Dr. Adam Alex Work Phone: [facility] Work Phone: 10-02-2021 13:52-0500 Body temperature 98.5 [degF] Dr. Adam Alex Work Phone: [facility] Work Phone: 10-02-2021 13:52-0500 Body weight 90.[address] Adam Alex Work Phone: [facility] Work Phone: Encounters Encounter Date Encounter Type Care Provider Facility Start: 03-27-2025 End: 03-27-[address] Miles Armendariz MD -[facility] Work Phone: Start: 03-27-2025 End: 03-27-[address] Timmy Floyd MD Work Phone: [facility] Work Phone: Start: 03-20-2025 End: 03-20-[address] Timmy Floyd MD Work Phone: [facility] Work Phone: Start: 03-20-2025 End: 03-20-[address] Miles Armendariz MD -Laboratory Work Phone: Start: 03-20-2025 End: 03-20-2025 ambulatory Timmy Floyd Facility:[facility] Start: 03-13-2025 End: 03-13-2025 Patient encounter procedure Luna MEHTA -[facility] Work Phone: Start: 03-13-2025 End: 03-13-[address] Timmy Floyd MD Work Phone: [facility] Work Phone: Start: 02-09-2025 End: 02-09-[address] Timmy Floyd MD Work Phone: [facility] Work Phone: Start: 02-09-2025 End: 02-09-[address] Miles Armendariz MD -Radiology, [facility] Work Phone: Start: 02-09-2025 End: 02-09-2025 ambulatory Miles Armendariz Facility:[facility] Start: 01-09-2025 End: 01-09-[address] Miles Armendariz MD -[facility] Work Phone: Start: 01-09-2025 End: 01-09-2025 ambulatory Timmy Floyd Facility:[facility] Start: 01-02-2025 End: 01-02-[address] Timmy Floyd MD -[facility] Work Phone: Start: 01-02-2025 End: 01-02-2025 ambulatory Timmy Floyd Facility:[facility] Start: 12-29-2024 End: 12-29-[address] Timmy Floyd MD Work Phone: [facility] Work Phone: Start: 12-29-2024 End: 12-29-2024 Patient encounter procedure Sean ERNST -[facility] Work Phone: Start: 12-29-2024 End: 12-29-2024 ambulatory Timmy Floyd Facility:[facility] Start: 12-21-2024 End: 12-21-2024 Patient encounter procedure Sean ERNST -[facility] Work Phone: Start: 12-21-2024 End: 12-21-2024 ambulatory Timmy Floyd Facility:[facility] Start: 12-16-2024 End: 12-16-[address] Timmy Floyd MD Work Phone: [facility] Work Phone: Start: 12-16-2024 End: 12-16-2024 Patient encounter procedure Robert Flores DO -Laboratory Work Phone: Start: 12-16-2024 End: 12-16-2024 Patient encounter procedure Robert Flores DO -[facility] Work Phone: Start: 12-16-2024 End: 12-16-2024 ambulatory Efewongbe Oleghe Facility:[facility] Start: 12-16-2024 End: 12-16-2024 [facility] Start: 12-01-2024 End: 12-01-[address] Kelby Seth MD -[facility] Start: 12-01-2024 End: 12-01-2024 ambulatory Efewongbe Oleghe Facility:[facility] Start: 11-21-2024 End: 11-21-2024 Patient encounter procedure Quirino Jerez PA -[facility] Work Phone: Start: 11-21-2024 End: 11-21-2024 ambulatory Efewongbe Oleghe Facility:[facility] Start: 11-11-2024 End: 11-11-2024 Patient encounter procedure Sarita Murillo PA -[facility] Work Phone: Start: 11-11-2024 End: 11-11-2024 ambulatory Efewongbe Oleghe Facility:[facility] Start: 08-18-2024 ambulatory Efewongbe Oleghe Facili ty:[facility] Start: 08-18-2024 End: 08-18-2024 [facility] Start: 08-09-2024 End: 08-09-2024 ambulatory Efewongbe Oleghe Facility:[facility] Start: 07-13-2024 End: 07-13-2024 ambulatory Kelby Seth Facility:[facility] Start: 06-29-2024 End: 06-29-2024 ambulatory Efewongbe Oleghe Facility:[facility] Start: 06-28-2024 End: 06-29-2024 ambulatory [facility] Facility:[facility] Start: 06-28-2024 End: 06-28-2024 ambulatory [facility] Facility:[facility] Start: 06-17-2024 End: 06-17-2024 ambulatory Era Beatrizov Facility:[facility] Start: 06-10-2024 End: 06-10-2024 [facility] Start: 06-10-2024 End: 06-10-2024 ambulatory [facility] Facility:[facility] Start: 12-03-2023 End: 12-03-[address] Timmy Floyd Work Phone: [facility] Work Phone: Start: 12-03-2023 End: 12-03-[address] Timmy Floyd Work Phone: [facility] [place] Start: 12-03-2023 End: 12-03-[address] Timmy Floyd Work Phone: [facility] Work Phone: Start: 11-03-2023 End: 11-03-[address] Timmy Floyd Work Phone: [facility] Work Phone: Start: 08-28-2023 End: 08-28-[address] Timmy Floyd Work Phone: [facility] Work Phone: Start: 05-11-[address] Adam Alex Work Phone: [facility] Start: 05-11-2023 End: 05-11-[address] Adam Alex Work Phone: [facility] Work Phone: Start: 05-11-2023 End: 05-11-2023 Encounter for general adult medical examination without abnormal findings Dr. Adam Alex Work Phone: [facility] Start: 05-11-2023 End: 05-11-[address] Adam Alex Work Phone: [facility] Work Phone: Start: 04-24-2023 End: 04-24-2023 Emergency department patient visit Dr. Adam Alex Work Phone: [facility]-Emergency Department Work Phone: Start: 02-03-2023 End: 02-03-[address] [facility] Work Phone: Start: 05-15-2022 End: 05-15-[address] [facility] Start: 04-03-2022 End: 04-03-[address] Adam Alex Work Phone: [facility] Start: 04-01-2022 End: 04-01-[address] Adam Alex Work Phone: [facility]-Laboratory, Phy Office 3rd Cor Start: 03-31-2022 Non-patient / Non-visit Dr. Adam Alex Work Phone: [facility] Inpatient Physicians Start: 03-30-2022 Non-patient / Non-visit Dr. Adam Alex Work Phone: [facility] Inpatient Physicians Start: 03-30-2022 End: 03-31-2022 Evaluation and management of inpatient Dr. Adam Alex Work Phone: [facility]-Medical Surgical 3 Start: 03-26-2022 End: 03-26-[address] Adam Alex Work Phone: [facility] Gastroenterology Start: 02-26-2022 Non-patient / Non-visit Dr. Adam Alex Work Phone: [facility]I Start: 02-26-2022 End: 02-26-2022 Admission to same day surgery center Dr. Adam Alex Work Phone: [facility]-Endoscopy Start: 02-20-2022 End: 02-20-[address] [facility] Start: 02-07-2022 Non-patient / Non-visit Dr. Adam Alex Work Phone: [facility]W Start: 02-06-2022 End: 02-06-[address] [facility] Start: 01-30-2022 Non-patient / Non-visit Dr. Adam Alex Work Phone: [facility] Start: 01-30-2022 End: 01-30-[address] Adam Alex Work Phone: [facility]-Pulmonary Services/Neurology Start: 01-24-2022 Non-patient / Non-visit Dr. Adam Alex Work Phone: [facility] Start: 01-24-2022 End: 01-24-[address] Adam Alex Work Phone: [facility]-Cardiovascular Services Start: 01-20-2022 End: 01-20-[address] Adam Alex Work Phone: [facility]-Laboratory Start: 01-16-2022 End: 01-16-2022 Admission to same day surgery center Dr. 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 Adam Alex Work Phone: [facility] Start: 01-10-2022 End: 01-10-[address] Adam Alex Work Phone: [facility]-Pulmonary Services/Neurology Start: 01-10-2022 Non-patient / Non-visit Dr. Adam Alex Work Phone: [facility] Start: 01-02-2022 End: 01-02-[address] Adam Alex Work Phone: [facility]-Laboratory Start: 01-02-2022 End: 01-02-[address] Adam Alex Work Phone: [facility] Heart Group Start: 12-18-2021 End: 12-18-[address] Adam Alex Work Phone: [facility] Gastroenterology Start: 10-02-2021 End: 10-02-2021 Emergency department patient visit Dr. Adam Alex Work Phone: [facility]-Emergency Department Start: 09-23-[address] Adam Alex Work Phone: [facility]-Laboratory, Phy Office 3rd Flr Start: 09-18-2021 End: 09-18-[address] Adam Alex Work Phone: [facility] Gastroenterology Procedures Date Procedure Procedure Detail Performing Clinician Start: 03-20-2025 Albumin/Globulin ratio Dr. Timmy Floyd MD Work Phone: Start: 03-20-2025 C>3< complement assay Dr. Timmy Floyd MD Work Phone: Start: 03-20-2025 Hemolytic complement CH50 level Dr. Geoff Floyd MD Work Phone: Comment on above: Age Male Female 1 - 30 days Not Estab. N ot Estab. 31 days - 6 months >32 >20 7 months - 17 years >39 >39 >17 years >41 >41 NOTE: The adult (>17 years) reference interval range is used to flag abnormals on this report. If the patient is 17 years old or younger, use the table above to determine out of range values.Performed at: [address] [id number] Director: Minh Maradiaga PhD, Phone: [phone] Start: 03-20-[address] measurement [address] Mary Lou Floyd MD Work Phone: Start: 03-20-2025 Urine lambda light chain measurement Dr. Timmy Floyd MD Work Phone: Start: 02-09-2025 Complete x-ray skeletal survey Dr. [...] Date Care Activity Detail Author Start: 05-15-2022 [facility] Work Phone: Start: 03-31-2022 Patient discharge [facility] Work Phone: Start: 03-31-2022 Following clinical pathway protocol [facility] Work Phone: Start: 03-31-2022 Assessment of risk of venous thromboembolism [facility] Work Phone: Start: 03-31-2022 Insertion of catheter into peripheral vein [facility] Work Phone: Start: 03-31-2022 Providing care according to standard [facility] Work Phone: Start: 03-31-2022 Provision of activity privileges [facility] Work Phone: Start: 03-31-2022 Referral to service [facility] Work Phone: Start: 03-31-2022 End: 03-31-2022 [facility] Work Phone: Start: 03-30-2022 Admission procedure [facility] Work Phone: Start: 02-26-2022 Egd insert guide wire dilator passage esophagus EGD GUIDE WIRE INSERTION [facility] Work Phone: Start: 02-26-2022 Egd transoral biopsy single/multiple EGD BIOPSY SINGLE/MULTIPLE [facility] Work Phone: Start: 02-26-2022 Patient discharge [facility] Work Phone: Start: 09-18-2021 Patient referral [facility] Work Phone: Alternaria alternata IgE Ab [Units/volume] in Serum [facility] Work Phone: Citizen Of [place] Cockroach I gE Ab [Units/volume] in Serum [facility] Work Phone: Citizen Of [place] house dust mite IgE Ab [Units/volume] in Serum [facility] Work Phone: Aspergillus fumigatus [facility] Work Phone: Basic metabolic 2008 panel with ionized calcium - Serum or Plasma [facility] Bermuda grass IgE Ab [Units/volume] in Serum [facility] Work Phone: Box elder [facility] Work Phone: C reactive protein [Mass/volume] in Serum or Plasma [facility] Cat dander [facility] Work Phone: Catheterization of l eft heart [facility] Work Phone: CBC W Auto Different ial panel - Blood [facility] Cladosporium herbaru m IgE Ab [Units/volume] in Serum [facility] Work Phone: Cobalamin (Vitamin B 12) [Mass/volume] in Serum or Plasma [facility] Common Ragweed IgE A b [Units/volume] in Serum [facility] Work Phone: Complement C3 [Mass/ volume] in Serum or Plasma [facility] Complement C4 [Mass/ volume] in Serum or Plasma [facility] Complement total hem olytic CH50 [Units/volume] in Serum or Plasma [facility] Comprehensive metabo lic 2000 panel - Serum or Plasma [facility] Hollywood [facility] Work Phone: CT Abdomen and Pelvi s W contrast IV [facility] CT Neck W contrast IV [facility] Dog epithelium IgE A b [Units/volume] in Serum [facility] Work Phone: Erythrocyte sediment ation rate [facility] house dust mite IgE Ab [Units/volume] in Serum [facility] Work Phone: Immunoglobulin E measurement [facility] Work Phone: Immunoglobulin measurement [facility] Lactate dehydrogenas e measurement [facility] Mouse urine proteins [facility] Work Phone: Patient Education [facility] Work Phone: Patient referral [facility] Work Phone: Pecan or [place] Nut IgE Ab [Units/volume] in Serum [facility] Work Phone: Rough Pigweed IgE Ab [Units/volume] in Serum [facility] Work Phone: Serum immunofixation [facility] Sheep [place] IgE Ab [Units/volume] in Serum [facility] Work Phone: Silver Birch IgE Ab [Units/volume] in Serum [facility] Work Phone: Sebastián IgE Ab [Units/volume] in Serum [facility] Work Phone: Tree pollen [facility] Work Phone: Urate [Mass/volume] in Serum or Plasma [facility] Vitamin D, 25-hydrox y measurement [facility] Abell [facility] Work Phone: White Mandeep IgE Ab [Units/volume] in Serum [facility] Work Phone: White Elm IgE Ab [Units/volume] in Serum [facility] Work Phone: White mulberry IgE A b [Units/volume] in Serum [facility] Work Phone: [facility] Immunizations Immunization Date Immunization Notes Care Provider [facility] 10-08-2021 Covid (Moderna) Dr. Adam Alex Work Phone: [facility] 02-09-2021 Covid (Moderna) Dr. Adam Alex Work Phone: [facility] 01-10-2021 Covid (Moderna) Dr. Adam Alex Work Phone: [facility] 07-14-[address] Adam Alex Work Phone: [facility] Payers Date Payer Category Payer Self-pay [id number] 2023 Medicare [id number] 2015 Unknown [id number] Unknown [facility] [id number] Unknown [id number] [id number] Unknown [id number] 2.16.840.1.812544.3.579.2.462 Unknown [id number] 2.16.840.1.666925.3.579.2.462 Unknown [id number] 2.16.840.1.696240.3.579.2.462 Unknown [id number] 2.16.840.1.909951.3.579.2.462 Unknown [id number] 2.16.840.1.757412.3.579.2.462 Unknown [id number] 2.16.840.1.604325.3.579.2.462 Unknown [id number] 2.16.840.1.018032.3.579.2.462 Unknown [id number] 2.16.840.1.161665.3.579.2.462 Unknown [id number] 2.16.840.1.611017.3.579.2.462 Unknown [id number] 2.16.840.1.339380.3.579.2.462 Unknown [id number] 2.16.840.1.500828.3.579.2.462 Unknown [id number] 2.16.840.1.379921.3.579.2.462 Unknown [id number] 2.16.840.1.867772.3.579.2.462 Unknown [id number] 2.16.840.1.636056.3.579.2.462 Unknown [id number] 2.16.840.1.526056.3.579.2.462 Unknown [id number] 2.16.840.1.781229.3.579.2.462 Unknown [id number] 2.16.840.1.182882.3.579.2.462 Unknown [id number] 2.16.840.1.929869.3.579.2.462 Unknown [id number] 2.16.840.1.120215.3.579.2.462 Unknown [id number] 2.16.840.1.943820.3.579.2.462 Unknown [id number] 2.16.840.1.116758.3.579.2.462 Unknown [id number] 2.16.840.1.406009.3.579.2.462 Unknown [id number] 2.16.840.1.629606.3.579.2.462 Unknown [id number] 2.16.840.1.190079.3.579.2.462 Unknown [id number] 2.16840.1.727654.3.579.2.462 Social History Date Type Detail Facility Start: 01-15-2022 End: 12-03-2023 Tobacco smoking status NHIS Unknown if ever smoked [facility] Start: 1950 Sex Assigned At Male [facility] Start: 12-01-2024 [facility] Start: 12-29-2024 End: 01-06-2025 Sex Male (finding) [facility] Goals Date Patient Goal Desired Activity /State Functional Status Date Assessment Result Facility 03-31-2022 Functional status Activity Abili ty Unable to Assess [facility] Work Phone: Mental Status Date Assessment Result Facility 03-31-2022 Cognitive function Voice/Name [facility] Work Phone: 02-26-2022 Cognitive function Voice/Name [facility] Work Phone: 10-02-2021 Cognitive function Level Of Cons ciousness Awake;Alert;Appropriate [facility] Work Phone: Clinical Notes 11-11-2024 to 02-12-2025 Note Date & Type Note Facility 02-12-2025 Radiology Diagnostic study note [facility] Imaging Services [address] [place], [place] [id number] Bone Survey Comp(Axial&Append) MR#: [id number] Acct: [id number] Name: JOSE SANDOVAL Rep #: [id number] : 1950 M 74 From: López Strong MD PCP: Dr. Timmy Floyd MD Status: R EG CLI Study:Bone Survey Comp(Axial&Append) Date of Exam: 02/09/25 Exam# [id number] Ordering Dr: To Armendariz MD PROCEDURE: BONE [...] Comp(Axial&Append) IMPRESSION: NEGATIVE BONE SURVEY. Reading Location: [id number] CC: Dr. Timmy Floyd MD; Dr. Miles Armendariz MD ~ Firer [place]: Signed [facility] 12-01-2024 Evaluation note Diagnosis Onset Date Resolution Acute bronchitis, unspecified acute December 01, 2 025 1:23pm Abdominal pain acute December 16, 2024 9:56am Anemia acute December 16 9:56am GERD (gastroesophageal reflux disease) chronic December 16, 2024 9:56am Bronchitis acute December 21 3:24pm Osteopenia determined by x-ray acute December 21, 2024 3:24pm Gammopathy, monoclonal chronic [facility] 2024 3:24pm Osteopenia determined by x-ray acute January 02, 2025 3:04pm Essential hypertension chronic [facility] 2024 3:04pm Mixed hyperlipidemia chronic Enrique h 2024 3:04pm Type 2 diabetes mellitus chronic January 02, 2025 3:04pm Gammopathy, monoclonal chronic [facility] 2024 2:52pm Asthma acute March 13, 2025 1:25pm [facility] Work Phone: 1(409) 536-826002-20-2025 Evaluation note* Diagnosis Onset Date Resolution Status Admit Date Acute bronchitis, unspecified acute December 01, 2024 1:23pm Abdominal pain acute December 16, 2024 9:56am Anemia acute December 16 9:56am GERD (gastroesophageal reflu x disease) chronic December 16, 2024 9:56am Bronchitis acute December 21 3:24pm Osteopenia determined by x-ray December 21, 2024 3:24pm Gammopathy, monoclonal chronic [facility] 2024 3:24pm Osteopenia determined by x-ray acute January 02, 2025 3:04pm Essential hypertension chronic [facility] 2024 3:04pm Mixed hyperlipidemia chronic Enrique h 2024 3:04pm Type 2 diabetes mellitus chronic January 02, 2025 3:04pm Gammopathy, monoclonal chronic [facility] 2024 2:52pm Asthma acute March 13, 2025 1:25pm Gammopathy, monoclonal chronic Ju ks 2024 11:24am [facility] Work Phone: 1(902) 799-866102-10-2025 Evaluation note* Diagnosis Onset Date Resolution Status Admit Date Acute bronchitis, unspecified acute November 21, 2024 3:25pm Acute bronchitis, unspecified acute December 01, 2024 1:23pm Abdominal pain acute December 16, 2024 9:56am Anemia acute December 16 9:56am GERD (gastroesophageal reflu x disease) chronic December 16, 2024 9:56am Bronchitis acute December 21 3:24pm Osteopenia determined by x-ray acute December 21, 2024 3:24pm Gammopathy, monoclonal chronic [facility] 2024 3:24pm Osteopenia determined by x-ray acute January 02, 2025 3:04pm Essential hypertension chronic [facility] 2024 3:04pm Mixed hyperlipidemia chronic Enrique 2024 3:04pm Type 2 diabetes mellitus chronic January 02, 2025 3:04pm Gammopathy, monoclonal chronic [facility] 2024 2:52pm [facility] Work Phone: 1(349) 532-996501-31-2025 Evaluation note* Diagnosis Onset Date Resolution Status Admit Date Abnormal stress test acute Garrison vik 2024 9:46am Essential hypertension chronic Ja ary 2024 9:46am Mixed hyperlipidemia chronic Garrison vik 2024 9:46am Acute bronchitis, unspecified acute November 21, 2024 3:25pm Acute bronchitis, unspecified acute December 01, 2024 1:23pm Abdominal pain acute December 16, 2024 9:56am Anemia acute December 16 9:56am GERD (gastroesophageal reflu x disease) chronic December 16, 2024 9:56am Bronchitis acute December 21 3:24pm Gammopathy, monoclonal acute [facility] 2024 3:24pm Osteopenia determined by x-ray December 21, 2024 3:24pm [facility] Work Phone: 1(810) 849-416701-31-2025 Evaluation note* Diagnosis Onset Date Resolution Status [...] December 21 3:24pm Gammopathy, monoclonal acute Ma rch 2024 3:24pm Osteopenia determined by x-ray acute December 21, 2024 3:24pm Osteopenia determined by x-ray acute January 02, 2025 3:04pm Essential hypertension chronic [facility] 2024 3:04pm Mixed hyperlipidemia chronic Enrique h 2024 3:04pm Type 2 diabetes mellitus chronic January 02, 2025 3:04pm [facility] Work Phone: 1(614) 886-761001-31-2025 Evaluation note* Diagnosis Onset Date Resolution Status [...] 21, 2024 3:24pm Gammopathy, monoclonal chronic [facility] 2024 3:24pm Osteopenia determined by x-ray acute January 02, 2025 3:04pm Essential hypertension chronic [facility] 2024 3:04pm Mixed hyperlipidemia chronic Enrique h 2024 3:04pm Type 2 diabetes mellitus chronic January 02, 2025 3:04pm Gammopathy, monoclonal chronic [facility] 2024 2:52pm [facility] Work Phone: Evaluation note* Diagnosis Onset Date Resolution Status Constipated acute Dizziness acute Leg cramps acute Constipated acute Dysphagia acute Segmental colitis associated with diverticulosis acute Angina pectoris acute Dizziness acute Essential hypertension acute Mixed hyperlipidemia acute Palpitations acute [facility] Work Phone: Evaluation note* Diagnosis Onset Date Resolution Status Constipated acute Dysphagia acute Segmental colitis associated with diverticulosis acute Angina pectoris acute Dizziness acute Essential hypertension acute Mixed hyperlipidemia acute Palpitations acute [facility] Work Phone: Evaluation note* Diagnosis Onset Date Resolution Status Constipated acute Dysphagia acute Segmental colitis associated with diverticulosis acute Angina pectoris acute Dizziness acute Essential hypertension acute Mixed hyperlipidemia acute Palpitations acute SOB (shortness of breath) on exertion acute [facility] Work Phone: Evaluation note* Diagnosis Onset Date Resolution Status Constipated acute Dysphagia acute Segmental colitis associated with diverticulosis acute Angina pectoris acute Dizziness acute Essential hypertension acute Mixed hyperlipidemia acute Palpitations acute SOB (shortness of breath) on exertion acute SOB (shortness of breath) on exertion acute [facility] Work Phone: Evaluation note* Diagnosis Onset Date Resolution Status Constipated acute Dysphagia acute Segmental colitis associated with diverticulosis acute Angina pectoris acute Dizziness acute Essential hypertension acute Mixed hyperlipidemia acute Palpitations acute SOB (shortness of breath) on exertion acute SOB (shortness of breath) on exertion acute GERD (gastroesophageal reflux disease) acute Segmental colitis associated with diverticulosis acute Slow transit constipation ac minto Chest pain acute Vertigo acute [facility] Work Phone: Evaluation note* Diagnosis Onset Date Resolution Status Constipated acute Dysphagia acute Segmental colitis associated with diverticulosis acute Angina pectoris acute Essential hypertension acute Mixed hyperlipidemia acute Palpitations chronic Dizziness resolved SOB (shortness of breath) on exertion acute SOB (shortness of breath) on exertion acute GERD (gastroesophageal reflux disease) acute Segmental colitis associated with diverticulosis acute Slow transit constipation ac minto Chest pain resolved Vertigo resolved Angina pectoris acute Essential hypertension acute Mixed hyperlipidemia acute Palpitations chronic Dizziness resolved [facility] Work Phone: Evaluation note* Diagnosis Onset Date Resolution Status SOB (shortness of breath) on exertion acute SOB (shortness of breath) on exertion acute GERD (gastroesophageal reflux disease) acute Segmental colitis associated with diverticulosis acute Slow transit constipation ac minto Chest pain resolved Vertigo resolved Angina pectoris acute Essential hypertension acute Mixed hyperlipidemia acute Palpitations chronic Dizziness resolved SOB (shortness of breath) on exertion acute [facility] Work Phone: Evaluation note* Diagnosis Onset Date Resolution Status Asthma acute [facility] Work Phone: Evaluation note* Diagnosis Onset Date Resolution Status Asthma acute Health care maintenance acut e Essential hypertension chron ic Type 2 diabetes mellitus chr onic [facility] Work Phone: Evaluation note* Diagnosis Onset Date Resolution Status Essential hypertension chron ic GERD (gastroesophageal reflux disease) chronic Mixed hyperlipidemia chronic Obesity chronic Type 2 diabetes mellitus chr onic Delayed gastric emptying acu te GERD (gastroesophageal reflux disease) chronic Slow transit constipation ch ronic Abdominal pain acute Essential hypertension chron ic Type 2 diabetes mellitus chr [facility]ic [facility] Work Phone: Reason for referral (narrative)No reason for referral information availableWRiverside [facility] Hospital Work Phone: Chief Complaint and Reason for [...] Chief Complaint 6-8 week fu eye problem [employer]. 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 21, 2024 3:24pm Osteopenia determined by x-ray December 3:04pm Essential hypertension January 02, 2025 3:04pm Mixed hyperlipidemia January 02, 2025 3: 04pm Type 2 diabetes mellitus January 02 3:04pm Gammopathy, monoclonal January 09, 2025 2:52pm Chief Complaint Admit Date BRONCHITIS FU December 01, 2024 1:23pm XRAY [...] ACUTE-DEEP COUGH March 13, 2025 1:25p m E ORDERS March 20, 2025 7:19a m Reason for Visit Admit Date Acute bronchitis, unspecified November 132024 1:23pm Abdominal pain December 16, 2024 9:56 am Anemia December 16, 2024 9:56 am GERD (gastroesophageal reflux disease) [facility] 2024 9:56am Bronchitis December 21, 2024 3:2 4pm Osteopenia determined by x-ray December 3:24pm Gammopathy, monoclonal December 21, 2024 3:24pm Osteopenia determined by x-ray December 3:04pm Essential hypertension January 02, 2025 3:04pm Mixed hyperlipidemia January 02, 2025 3: 04pm Type 2 diabetes mellitus January 02 3:04pm Gammopathy, monoclonal January 09, 2025 2:52pm Asthma March 13, 2025 1:25p m Chief Complaint Admit Date BRONCHITIS FU December 01, 2024 1:23pm XRAY [...] ACUTE-DEEP COUGH March 13, 2025 1:25p m E ORDERS March 20, 2025 7:19a m 12WKS LABS PRIOR March 27, 2025 11:2 4am Reason for Visit Admit Date Acute bronchitis, unspecified November 132024 1:23pm Abdominal [...] 3:04pm Gammopathy, monoclonal January 09, 2025 2:52pm Asthma March 13, 2025 1:25p m Gammopathy, monoclonal March 27, 2025 1 1:24am Family History No Family History Records Found [...] No January 15, 2022 8:24am Power of Raw Material Planner No January 15 8:24am Advance Directive Response Recorded Date/ Time Advance Directives No January 16 7:03am Living Will No January 16, 2022 7:03am Power of Raw Material Planner No January 16 7:03am Advance Directive Response Recorded Date/ Time Advance Directives No January 16 7:03am Living Will No February 25, 2022 1 0:26am Power of Raw Material Planner No February 25, 2022 10:26am Advance Directives on File No January 16, 2022 7:03am Advance Directive Response Recorded Date/ Time Advance Directives on File No January 16, 2022 7:03am Advance Directives No January 16 7:03am Living Will Yes March 31, 2022 12:37am Power of Raw Material Planner No March 31 12:37am Advance Directive Response Recorded Date/ Time Advance Directives No January 16 7:03am Living Will Yes March 31, 2022 12:37am Power of Raw Material Planner No March 31 12:37am Advance Directive Response Recorded Date/ Time Advance Directives No January 16 7:03am Living Will No April 24, 2023 11:19pm Power of Raw Material Planner No April 24 11:19pm Advance Directive Response Recorded Date/ Time Advance Directives No January 16 6:03am Living Will No April 24, 2023 10:19pm Power of Raw Material Planner No April 24 10:19pm Advance Directive Response Recorded Date/ Time Living Will No April 24, 2023 11:19pm Do you have a Healthcare Power of Raw Material Planner? No April 24, 2023 11:19pm Living Will Yes July 13 11:45am Do you have a Healthcare Power of Raw Material Planner? Yes July 13, 2024 11:45am Advance Directives Yes November 3:15pm Advance Directive Response Recorded Date/ Time Living Will No April 24, 2023 11:19pm Do you have a Healthcare Power of Raw Material Planner? No April 24, 2023 11:19pm Advance Directives [...] Dr. Timmy Floyd MD Primary Care P leonard, Attending Provider, Referring Provider Active Team Status: [...] November 21, 2024 End: November 21, 2024 Quirino Jerez PA, PA Attending Provider Active Start: November 21, 2024 End: November 21, 2024 Team Status: Inactive Member Role Status Dates Dr. Timmy Floyd MD Primary Care Provider Active Start: December 01, 2024 End: December 01, 2024 Dr. Timmy Floyd MD Referring Provider Active Start: December 01, 2024 End: December 01, 2024 Sean ERNST PA Attending Provider Active St art: December 01, [...] December 21, 2024 End: December 21, 2024 Sean ERNST PA Attending Provider Active St art: December 21, 2024 End: December 21, 2024 Team Status: Active Member Role Status Dates Dr. Timmy Floyd MD Primary Care Provider Active Start: December 29, 2024 Sean ERNST PA Attending Provider Active St art: December 29, 2024 Sean ERNST PA Referring Provider Active St art: December 29, 2024 Team Status: Inactive Member Role Status Dates Dr. Timmy Floyd MD Primary Care Provider Active Start: December 29, 2024 End: December 29, 2024 Sean ERNST PA Attending Provider Active St art: December 29, 2024 End: December 29, 2024 Sean ERNST PA Referring Provider Active St art: December 29, [...] March 13, 2025 End: March 13, 2025 Team Status: Inactive Member Role Status Dates Dr. Timmy Floyd MD Primary Care Provider Active Start: March 20, 2025 End: March 20, 2025 Dr. Miles Armendariz MD Attending Provider Active S tart: March 20, 2025 End: March 20, 2025 Dr. Miles Armendariz MD Referring Provider Active S tart: March 20, 2025 End: March 20, 2025 Team Status: Inactive Member Role Status Dates Dr. Timmy Floyd MD Primary Care Provider Active Start: March 27, 2025 End: March 27, 2025 Dr. Timmy Floyd MD Referring Provider Active Start: March 27, 2025 End: March 27, 2025 Dr. Miles Armendariz MD Attending Provider Active S tart: March 27, 2025 End: March 27, 2025 (unrecognized sect ion and content) No Status Records Found INFORMATION SOURCE (unrecogn ized section and content) DATE CREATED AUTHOR 03/27/2025 [facility] FOR RECORDS PERTAINING TO PATIENTS WHO [...] BE BASED ON THE PRIMARY CLINICAL RECORDS. [employer] provides no warranty or guarantee of the accuracy or completeness of information in this document.
== END | disposition home or self-care (01) ==
LOC: CT 13:43
PROVIDERS: PCP Internal Medicine; Referring Provider Internal Medicine Medical Oncology; Visit Provider Internal Medicine Medical Oncology
DX: D47.2 Monoclonal gammopathy (principal)
CPT/HCPCS: 70491; 71260; 74177; Q9967

== ENCOUNTER → 2025-04-21 | Outpatient (CLI) | payer MEDICARE, OTHER, SELFPAY ==
[2025-04-21 11:44] LABS: Anion Gap 10 (5-15); BUN 34 mg/dL (4-19); BUN/Creat Ratio 27.7 RATIO (10-20); Calcium,Total 9.8 mg/dL (7.6-11.0); Carbon Dioxide 23.7 mmol/L (21.0-32.0); Chloride 103 mmol/L (98-108); Glucose 128 mg/dL (70-99); Potassium 4.7 mmol/L (3.3-5.1); Vitamin D,25 Hydroxy 54.3 ng/mL (30-100)
== END | disposition home or self-care (01) ==
LOC: LAB 08:56
PROVIDERS: PCP Internal Medicine; Referring Provider Internal Medicine; Visit Provider Internal Medicine
DX: M85.80 Other specified disorders of bone density and structure, unspecified site (principal); I10 Essential (primary) hypertension
CPT/HCPCS: 36415; 80048; 82306

== ENCOUNTER → 2025-04-27 | Outpatient (CLI) | payer MEDICARE, OTHER, SELFPAY ==
--- NOTE | 2025-04-27 09:49 | US_ITS ---
PROCEDURE: ABD LIMITED W/ ELASTOGRAPHY REASON FOR EXAM: MGUS COMPARISON: None. TECHNIQUE: Right upper quadrant abdominal ultrasound. [facility] ElastQ Imaging shear wave elastography for non-invasive assessment of liver tissue stiffness. [employer] EPIQ Elite. FINDINGS: LIVER: Size: Hepatomegaly. Length: 18 cm Echotexture: Diffusely echogenic suggesting fatty infiltration Contour: Normal Lesions: None identified Elastography: EQI Med: 10.1 kPa EQI Med Carlos: 1.83 m/s IQR/Med: 17.5 %* GALLBLADDER: Normal COMMON BILE DUCT: Normal measuring 4 mm . PANCREAS: Normal Visualized portions of the right kidney are unremarkable. No right upper quadrant ascites. US/ABD Limited w/ Elastography IMPRESSION: MODERATE TO SEVERE HEPATIC FIBROSIS Hepatomegaly. Diffuse fatty infiltration of the liver. Reference Values: SRU <1.37 m/s (5.7kPa): No to mild fibrosis 1.37 m/s - 2.2 m/s: Moderate to severe fibrosis >2.2 m/s (15kPa): Significant fibrosis / cirrhosis METAVIR Score F2 or higher: 1.34 m/s (5.7kPa) F3 or higher: 1.55 m/s (7.3kPa) F4: 1.80 m/s (10kPa) * If the IQR/Med is >30%, the variance in the measurements is a large and the a ccuracy of the measurement may be in question. Reading Location: [place] [id number]
--- OUTSIDE RECORDS SUMMARY | 2025-04-27 18:25 | XMS RPT_ITS | CCD ---
Author Organization [facility] Care Team Providers Care Rn Sane Name Role Phone Dr. Adam Alex Chi Primary Care Provider Dr. Adam Alex Chi Referring Provider Friend, Dr. Jones Attending Provider [phone] Joe ECOLOGICAL TECHNICAL OFFICER, ECOLOGICAL TECHNICAL OFFICER-C Elaine Blank Attending Provider Dr. Sarmad Muñoz Attending Provider [phone] Sarmad Muñoz Other Provider Dr. Adam Alex Chi Primary Care Provider Dr. Adam Alex Chi Referring Provider Dr. Sarmad Muñoz Referring Provider Dr. French Buchanan Attending Provider Dr. French Buchanan Referring Provider Dr. French Buchanan Other Provider Dr. Tobin Castellon Attending Provider Blanche ECOLOGICAL TECHNICAL OFFICER, ECOLOGICAL TECHNICAL OFFICER-C Raysa Attending Provider FriendDr. Jones Attending Provider [phone] Robert Flores Other Provider Dr. Reynaldo Schmitt Emergency Provider Dr. Adam Lerma Admit Provider Dr. Adam Lerma Attending Provider Dr. Adam Lerma Other Provider Dr. Sebastian Keith Attending Provider Dr. Sebastian Keith Other Provider Jason ECOLOGICAL TECHNICAL OFFICER, ECOLOGICAL TECHNICAL OFFICER-C Max Narayan Attending Provider Isai, Dr. Adam Loomis Primary Care Provider Isai, Dr. Adam Loomis Referring Provider Dr. Sarmad Muñoz Attending Provider Joe ECOLOGICAL TECHNICAL OFFICER, ECOLOGICAL TECHNICAL OFFICER-C Elaine Blank Attending Provider Isai, Dr. Adam [...] Provider Kala BULL, Dr. Aquino Referring Provider Mariel BULL, Dr. Warner Primary Care Provider Mariel BULL, Dr. Warner Referring Provider [phone] Brown ECOLOGICAL TECHNICAL OFFICER-CLuna Attending Provider [phone] Mariel BULL, Dr. Warner Primary Care Provider Mariel BULL, Dr. Warner Referring Provider [phone] Mariel BULL, Dr. Warner Primary Care Provider Sean Armas Attending Provider [phone] Mariel BULL, Dr. Warner Referring Provider [phone] Shivani JOHNOSN, Dr. Jones Referring Provider Oleghe, Efewongbe Attending Unavailable Oleghe, Efewongbe Referring Unavailable Oleghe, Efewongbe Primary Care Unavailable Sean Arams Attending Unavailable Sean Armas Referring Unavailable Oleghe, Efewongbe Primary Care Unavailable Miles Armendariz Attending Unavailable Miles Armendariz Referring Unavailable Oleghe, Efewongbe Primary Care Unavailable Robert Flores Attending Unavailable Robert Flores Referring Unavailable Oleghe, Efewongbe Primary Care Unavailable Oleghe, Efewongbe Attending Unavailable Oleghe, Efewongbe Primary Care Unavailable Dorinda, [place] Attending Unavailable Dorinda Kelby Referring Unavailable Oleghe, Efewongbe Primary Care Unavailable Oleghe, Efewongbe Referring Unavailable Oleghe, Efewongbe Attending Unavailable Donighe, Efewongbe Primary Care Unavailable Miles Armendariz Attending Unavailable Miles Armendariz Referring Unavailable Oleghe, Efewongbe Primary Care Unavailable Oleghe, Efewongbe Referring Unavailable Oleghe, Efewongbe Primary Care Unavailable Sean Armas Attending Unavailable Oleghe, Efewongbe Referring Unavailable Miles Armendariz Attending Unavailable Oleghe, Efewongbe Primary Care Unavailable Robert Flores Attending Unavailable Oleghe, Efewongbe Primary Care Unavailable Oleghe, Efewongbe Referring Unavailable Kathleen Grande NP Attending Unavailable Oleghe, Efewongbe Referring Unavailable Oleghe, Efewongbe Primary Care Unavailable Oleghe, Efewongbe Referring Unavailable Oleghe, Efewongbe Primary Care Unavailable Sarita Damian Attending Unavail able Oleghe, Efewongbe Referring Unavailable Oleghe, Efewongbe Primary Care Unavailable Quirino Hamlin Attending Unavailable Oleghe, Efewongbe Referring Unavailable Oleghe, Efewongbe Primary Care Unavailable Sean Armas Attending Unavailable Kelby Seth Attending Unavailable Oleghe, Efewongbe Primary Care Unavailable Oleghe, Efewongbe Referring Unavailable Sarita Damian Attending Unavail able Oleghe, Efewongbe Primary Care Unavailable Sarita Damian Attending Unavail able Sarita Damian Referring Unavail able Oleghe, Efewongbe Primary Care Unavailable Oleghe, Efewongbe Referring Unavailable Miles Armendariz Attending Unavailable Oleghe, Efewongbe Primary Care Unavailable Keiko Arrieta Attending Unavailable Oleghe, Efewongbe Consulting Unavailable Oleghe, Efewongbe Referring Unavailable Oleghe, Efewongbe Primary Care Unavailable Kathleen Grande NP Referring Unavailable Kelby Seth Attending Unavailable Oleghe, Efewongbe Primary Care Unavailable Miles Armendariz Attending Unavailable Miles Armendariz Referring Unavailable Oleghe, Efewongbe Primary Care Unavailable Era Mason Attending Unavailable Oleghe, Efewongbe Referring Unavailable Oleghe, Efewongbe Primary Care Unavailable Kathleen Grande NP Referring Unavailable Oleghe, Efewongbe Primary Care Unavailable Kathleen Grande NP Attending Unavailable Oleghe, Efewongbe Referring Unavailable Oleghe, Efewongbe Attending Unavailable Oleghe, Efewongbe Primary Care Unavailable Oleghe, Efewongbe Referring Unavailable Oleghe, Efewongbe Attending Unavailable Oleghe, Efewongbe Primary Care Unavailable Robert Flores Referring Unavailable Miles Armendariz Attending Unavailable Oleghe, Efewongbe Primary Care Unavailable Oleghe, Efewongbe Referring Unavailable Oleghe, Efewongbe Primary Care Unavailable Luna Dasilva Attending Unavailable Allergies Allergy Classification Reported Allergen(s) Allergy Type Date of Onset Reaction(s) Facility (20 sources) Amoxicillin Drug Allergy 2 Swelling [facility] (20 sources) HYDROcodone Drug Allergy 2 Other [facility] (20 sources) Nitroglycerin Drug Allergy 2 SEVERE HYPOTENSION [facility] (1 source) Amoxicillin Drug Allergy 5 [facility] (1 source) HYDROcodone Drug Allergy 5 [facility] (1 source) Nitroglycerin Drug Allergy 5 [facility] Medications Current Medications Medication Drug Class(es) Dates Sig (Normalized) Sig (Original) [id number] 200 actuat albuterol 0.09 mg/actuat metered dose inhaler (20 sources) beta2-Adrenergic Agonist Start: 04-03-2025 Albuterol Sulfate (Ventolin Hfa) 90 mcg/actuation HFA aerosol inhaler Active 2 NMA INHALATION EVERY 4-6 HOURS as needed for shortness of breath or wheezing 6.7 3 April 03, 2025 12:00am Acute bronchitis Acute bronchitis, unspecified Start: 01-20-2022 take 1 puff(s) by in halation every four hours Albuterol Sulfate Active 2 PUFF INHALATION Q4H 8.5 January 20, 2022 2:38pm administer with spacer Start: 01-20-2022 End: 12-03-2023 Albuterol Sulfate 90 mcg/act uation HFA aerosol inhaler Discontinued 2 NMA INHALATION Q4H as needed for shortness of breath or wheezing 8.5 3 March 23, 2023 10:22am December 03, 2023 3:10pm administer with spacer Start: 01-20-2022 End: 12-03-2023 take 1 puff(s) by inhalation every four hours Albuterol Sulfate Discontinued 2 PUFF INHALATION Q4H 8.5 March 23, 2023 9:22am December 03, 2023 2:10pm administer with spacer amLODIPine 5 mg oral tablet (9 sources) Dihydropyridine Calcium Channel Rafy Start: 07-13-2024 take 1 tablet by mouth once daily Amlodipine 5 mg tablet Active 5 mg PO daily 90 3 July 13, 2024 12:00am aspirin 81 mg delayed release oral tablet (20 sources) Platelet Aggregation Inhibitor, Nonsteroidal Anti-inflammatory Drug Start: 04-03-2022 take 1 tablet by mouth once daily Aspirin (Adult Aspirin Regimen) 81 mg tablet,delayed release (DR/EC) Active 81 mg PO daily 90 3 April 03, 2022 12:00am Start: 11-18-2017 End: 04-03-2022 take 1 tablet by mouth once daily Aspirin 325 mg tablet Discontinued 325 mg PO daily November 18, 2017 1:00am April 03, 2022 11:35am heart Flamsred Start: 11-28-2016 End: 12-20-2016 take 1 tablet by mouth once daily Aspirin 325 MG tablet Discontinued 325 mg PO DAILY@0800 November 28, 2016 1:00am December 20, 2016 12:24pm atorvastatin 40 mg oral tablet (18 sources) HMG-CoA Reductase Inhibitor Start: 11-29-2024 End: 04-27-2025 take 1 tablet by mouth once daily in the evening Atorvastatin 40 mg tablet Active 40 mg PO EVERY EVENING 90 April 27, 2025 3:18pm cholecalciferol 0.025 mg oral tablet (20 sources) Vitamin D Start: 08-13-2021 take 1 tablet by mouth once daily Cholecalciferol (Vitamin D3) (Vitamin D3) 25 mcg (1,000 unit) Tablet Active 25 ug PO DAILY August 13, 2021 12:00am supplement Compress.Stocking,Kne e,Reg,Lrg misc (9 sources) Start: 03-03-2024 Compress.Stocking,Kn ee,Reg,Lrg misc Active 0 .MEDSUPPLY 2 1 March 03, 2024 12:00am Venous insufficiency (chronic) (peripheral) wear daily for venous insufficiency 20-30 mmHg Start: 03-03-2024 Compress.Stock ing,Knee,Reg,Lrg misc Active 0 .MEDSUPPLY 2 March 03, 2024 12:00am wear daily for venous insufficiency 20-30 mmHg MDI spacer (9 sources) Start: 12-01-2024 MDI spacer Act phil 0 .Route .MEDSUPPLY 1 0 December 01, 2024 1:00am Acute bronchitis Acute bronchitis, unspecified To be used with inhaler Start: 12-01-2024 MDI spacer Act phil 0 .Route .MEDSUPPLY 1 December 01, 2024 1:00am To be used with inhaler metFORMIN hydrochloride 1000 mg oral tablet (20 sources) Biguanide Start: 11-28-2016 End: 04-27-2025 take 1 tablet by mouth twice daily at mealtime Metformin 1,000 mg tablet Active 1000 mg PO TWICE DAILY WITH MEALS 180 April 27, 2025 3:18pm diabetes montelukast 10 mg oral tablet (20 sources) Leukotriene Receptor Antagonist Start: 07-20-2023 End: 04-27-2025 take 1 tablet by mouth once daily in the evening Montelukast 10 mg tablet Active 10 mg PO EVERY EVENING 90 April 27, 2025 3:18pm Asthma Unspecified asthma, uncomplicated Multivitamin preparation (13 sources) Start: 08-13-2021 take [...] DAILY August 13, 2021 12:00am Multivitamin Tablet (9 sources) Start: 08-13-2021 Multivitamin T ablet Active 1 {tbl} PO DAILY August 13, 2021 12:00am supplement Start: 08-13-2021 Multivitamin T ablet Active 1 {tbl} PO DAILY August 13, 2021 12:00am Completed/Discontinued Medications Medication Drug Class(es) Dates Sig (Normalized) Sig (Original) azithromycin 250 mg oral tablet (20 sources) Macrolide Antimicrobial Start: 03-30-2025 End: 04-24-2025 Azithromycin 250 mg tablet Discontinued 0 PO .COMPLEX 6 0 March 30, 2025 8:15am April 24, 2025 10:10am Acute bronchitis Acute bronchitis, unspecified For 250 mg dose pack: take 500 mg today (day 1), then 250 mg for 4 days (days 2-5) PO Start: 11-21-2024 End: 12-01-2024 Azithromycin 250 mg tablet Discontinued 0 PO .COMPLEX 6 0 November 21, 2024 1:00am December 01, 2024 2:26pm For 250 mg dose pack: take 500 mg today (day 1), then 250 mg for 4 days (days 2-5) PO Start: 07-20-2023 End: 08-04-2023 take 2-5 tablets by mouth once daily Azithromycin 250 mg tablet Discontinued 0 PO .COMPLEX 6 0 July 20, 2023 12:00am August 04, 2023 8:30am Asthma Unspecified asthma, uncomplicated take 500 mg today (day 1), then 250 mg for 4 days (days 2-5) PO benzonatate 200 mg oral capsule (9 sources) Non-narcotic Antitussive Start: 11-21-2024 End: 12-21-2024 take 1 capsule by mouth three times daily as needed for cough Benzonatate 200 mg capsule Discontinued 200 mg PO THREE TIMES A DAY as needed for cough 20 0 November 21, 2024 1:00am December 21, 2024 3:43pm bisacodyl 5 mg delayed release oral tablet (20 sources) Stimulant Laxative Start: 08-28-2021 End: 12-18-2021 take 1 tablet by mouth once Bisacodyl 5 mg tablet,delayed release (DR/EC) Discontinued 5 mg PO ONCE 8 0 August 28, 2021 1:00am December 18, 2021 10:46am take as directed for bowel prep Budesonide-Glycopy r-Formoterol (20 sources) Corticosteroid, beta2-Adrenergic Agonist Start: 06-10-2024 End: 08-09-2024 Budesonide-Glycopy r-Formoterol (Breztri Aerosphere) 160-9-4.8 mcg/actuation HFA aerosol inhaler Discontinued NMA INHALATION June 10, 2024 12:00am August 09, 2024 8:33am Start: 12-24-2022 End: 03-23-2023 Lbgcqrzytk-Nxbytwew-Dnmdzefo ol (Breztri Aerosphere) 160-9-4.8 mcg/actuation HFA aerosol inhaler Discontinued 2 NMA INHALATION TWICE A DAY 10.7 6 December 24, 2022 12:00am March 23, 2023 10:23am Start: 12-24-2022 End: 03-23-2023 Haftpdpnen-Msdnhtcy-Cnafrlvs ol (Breztri Aerosphere) 160-9-4.8 mcg/actuation HFA aerosol inhaler Discontinued 2 NMA INHALATION TWICE A DAY 10.7 December 24, 2022 12:00am March 23, 2023 10:23am Start: 12-24-2022 End: 03-23-2023 Qxjcwvawsc-Shwrjmgu-Ojdqgkoi ol (Breztri Aerosphere) 160-9-4.8 mcg/actuation HFA aerosol inhaler Discontinued 2 INH INHALATION TWICE A DAY 10.7 December 23, 2022 11:00pm March 23, 2023 9:23am Start: 12-24-2022 End: 03-23-2023 Bhycsckbez-Vaynjnas-Uatoijyi ol (Breztri Aerosphere) 160-9-4.8 mcg/actuation HFA aerosol inhaler Discontinued 2 INH INHALATION TWICE A DAY 10.7 December 24, 2022 12:00am March 23, 2023 10:23am cetirizine hydrochloride 10 mg oral tablet (20 sources) Histamine-1 Receptor Antagonist Start: 05-15-2022 End: 11-06-2023 take 1 tablet by mouth once daily Cetirizine (All Day Allergy (Cetirizine)) 10 mg tablet Discontinued 10 mg PO DAILY 30 3 July 20, 2023 8:11am November 06, 2023 9:56am Asthma Unspecified asthma, uncomplicated ciprofloxacin 500 mg oral tablet (20 sources) Quinolone Antimicrobial Start: 12-20-2016 End: 11-18-2017 take 1 tablet by mouth twice daily Ciprofloxacin Hcl 500 MG tablet Discontinued 500 mg PO TWICE A DAY 14 0 December 20, 2016 1:00am November 18, 2017 1:43pm dexamethasone 1 mg/ml / neomycin 3.5 mg/ml / polymyxin b 37967 unt/ml ophthalmic suspension (12 sources) Aminoglycoside Antibacterial, Polymyxin-class Antibacterial, Corticosteroid Start: 04-24-2023 End: 08-04-2023 Neomycin-Polymyxin B-Dexameth (Maxitrol) 3.5mg/mL-10,000 unit/mL-0.1 % drops,suspension Discontinued 2 NMA EACH EYE 4 TIMES DAILY 5 7 0 April 24, 2023 12:00am August 04, 2023 8:29am Start: 04-24-2023 End: 08-04-2023 Neomycin-Polymyxin B-Dexamet h (Maxitrol) 3.5mg/mL-10,000 unit/mL-0.1 % drops,suspension Discontinued 2 DRP EACH EYE 4 TIMES DAILY 5 7 April 23, 2023 11:00pm August 04, 2023 [...] mcg/actuation spray,suspension Discontinued 2 NMA INTRANASAL daily 25 12May 15, 2022 12:00am December 03, 2023 3:10pm administer into each nostril Start: 05-15-2022 End: 12-03-2023 take 1 spray(s) nasal route once daily Fluticasone Propionate (Flonase Allergy Relief) 50 mcg/actuation spray,suspension Discontinued 2 SPRAY INTRANASAL daily May 14, 2022 11:00pm December 03, 2023 2:10pm administer into each nostril Fluticasone Propionate 110 mcg/actuation HFA aerosol inhaler (9 sources) Start: 12-01-2024 End: 12-02-2024 Fluticasone Propionate 110 mcg/actuation HFA aerosol inhaler Discontinued 2 NMA INHALATION TWICE A DAY 12 December 01, 2024 1:00am December 02, 2024 10:00am administer with spacer: Rinse mouth after each use Start: 12-01-2024 End: 12-02-2024 Fluticasone Propionate 110 m cg/actuation HFA aerosol inhaler Discontinued 2 NMA INHALATION TWICE A DAY December 01, 2024 1:00am December 02, 2024 10:00am administer with spacer: Rinse mouth after each use glimepiride 2 mg oral tablet (20 sources) Sulfonylurea Start: 05-11-2023 End: 04-27-2025 take 1 tablet by mouth once daily Glimepiride 2 mg tablet Discontinued 2 mg PO DAILY 30 90 0 November 29, 2024 11:38am January 02, 2025 [...] 28, 2016 1:00am April 03, 2022 10:41am diabetes Start: 11-28-2016 End: 04-03-2022 take 2 mg by mouth twice daily Glimepiride Discontinue d 2 MG PO TWICE A DAY November 28, 2016 12:00am April 03, 2022 9:41am lactulose 667 mg/ml oral solution (20 sources) Osmotic Laxative Start: 09-18-2021 End: 12-18-2021 take 20 g by mouth twice daily for diarrhea Lactulose 20 gram/30 mL solution Discontinued 20 g PO TWICE A DAY 1200 0 September 18, 2021 1:00am December 18, 2021 10:50am hold for diarrhea linaclotide 0.072 mg oral capsule (20 sources) Guanylate Cyclase-C Agonist Start: 09-02-2021 End: 12-18-2021 take 1 capsule by mouth once daily Linaclotide (Linzess) 72 mcg capsule Discontinued 72 ug PO DAILY 30 2 September 02, 2021 1:00am December 18, 2021 10:46am lisinopril 20 mg oral tablet (20 sources) Angiotensin Converting Enzyme Inhibitor Start: 11-28-2016 End: 08-09-2024 take 1 tablet by mouth once daily Lisinopril 20 mg tablet Discontinued 20 mg PO DAILY 90 0 April 26, 2024 10:37am August 09, 2024 8:51am hypertension magnesium oxide 400 mg oral tablet (20 sources) Start: 09-18-2021 End: 12-18-2021 take 1 tablet by mouth once daily Magnesium Oxide 400 mg (241.3 mg magnesium) tablet Discontinued 400 mg PO DAILY 14 0 September 18, 2021 1:00am December 18, 2021 10:46am Sodium,Potassium,M ag Sulfates (20 sources) Start: 08-28-2021 End: 08-28-2021 Sodium,Potassium,M ag Sulfates (Suprep Bowel Prep Kit) 17.5-3.13-1.6 gram recon soln Discontinued 480 mL PO every 10 to 20 minutes 354 0 August 28, 2021 7:49am August 28, 2021 [...] PO every 10 to 20 minutes 354 0 August 08, 2021 12:00am August 28, 2021 [...] (DR/EC) Discontinued 2.4 g PO DAILY 112 56 0 September 20, 2021 11:09am November 14, 2021 1:00am November 15, 2021 1:03am Start: 09-18-2021 End: 11-15-2021 take 2.4 g by mouth once daily Mesalamine Discontinued 2.4 GM PO DAILY 112 56 September 20, 2021 10:09am November 15, 2021 12:03am metoprolol tartrate 25 mg oral tablet (20 sources) beta-Adrenergic Rafy Start: 01-02-2022 End: 08-04-2023 take 1 tablet by mouth twice daily Metoprolol Tartrate 25 mg tablet Discontinued 25 mg PO TWICE A DAY 180 3 January 16, 2022 3:36pm August 04, 2023 [...] (Duler a) 200-5 mcg/actuation HFA aerosol inhaler (20 sources) Start: 03-23-2023 End: 08-04-2023 Mometasone-Formoterol (Duler a) 200-5 mcg/actuation HFA aerosol inhaler Discontinued 2 NMA INHALATION TWICE A DAY 13 March 23, 2023 12:00am August 04, 2023 8:29am Start: 03-23-2023 End: 08-04-2023 Mometasone-Formoterol (Duler a) [...] Discontinued 2 NMA INHALATION TWICE A DAY 24 03December 23, 2022 12:00am December 24, 2022 10:21am Start: 12-23-2022 End: 12-24-2022 Mometasone-Formoterol (Duler a) [...] 23, 2022 12:00am December 24, 2022 10:21am pantoprazole 40 mg delayed release oral tablet (20 sources) Proton Pump Inhibitor Start: 07-16-2022 End: 04-27-2025 take 1 tablet by mouth once daily in the morning Pantoprazole (Protonix) 40 mg tablet,delayed release (DR/EC) Discontinued 40 mg PO EVERY MORNING 30 0 November 29, 2024 11:38am January 02, 2025 3:43pm GERD Start: 03-05-2022 End: 07-16-2022 Pantoprazole (Protonix) 40 m g tablet,delayed release (DR/EC) Discontinued 40 mg PO TWICE A DAY March 30, 2022 10:42pm July 16, 2022 8:22am GERD take two times a day for eight weeks then once a day pioglitazone 30 mg oral tablet (20 sources) Peroxisome Proliferator Receptor alpha Agonist, Peroxisome Proliferator Receptor gamma Agonist, Thiazolidinedione Start: 05-12-2023 End: 04-27-2025 take 1 tablet by mouth once daily [...] 13, 2021 12:00am September 25, 2022 3:01pm blood sugar polyethylene glycol 3350 72024 mg powder for oral solution (20 sources) Osmotic Laxative Start: 03-30-2022 End: 08-09-2024 Polyethylene Glycol 3350 (Miralax) 17 gram Powder In Packet Discontinued 17 g PO DAILY as needed for Constipation March 30, 2022 12:00am August 09, 2024 8:33am Start: 08-28-2021 End: 12-18-2021 Polyethylene Glycol 3350 (Mi ralax) 17 gram/dose powder Discontinued 17 g PO DAILY 238 August 28, 2021 1:00am December 18, 2021 10:46am take as directed for bowel prep predniSONE 20 mg oral tablet (10 sources) Start: 07-20-2023 End: 08-04-2023 take 3 tablets by mouth once daily at mealtime Prednisone 20 mg tablet Discontinued 60 mg PO daily 15 July 20, 2023 12:00am August 04, 2023 8:29am Asthma Unspecified asthma, uncomplicated administer with food or milk Start: 07-20-2023 End: 08-04-2023 take 60 mg by mouth once daily at mealtime Prednisone Discontinued 60 MG PO daily July 19, 2023 11:00pm August 04, 2023 7:29am administer with food or milk 12 hr ranolazine 500 mg extended release oral tablet (20 sources) Anti-anginal Start: 01-02-2022 End: 01-16-2022 take 1 tablet by mouth twice daily Ranolazine (Ranexa) 500 mg tablet extended release 12 hr Discontinued 500 mg PO TWICE A DAY 60 January 02, 2022 12:00am January 16, 2022 9:13am 72 hr scopolamine 0.0139 mg/hr transdermal system (9 sources) Anticholinergic Start: 03-03-2024 End: 08-09-2024 Scopolamine Base 1 mg over 3 days patch 3 day Discontinued 1 NMA TD Every 3 Days as needed for motion sickness 4 March 03, 2024 12:00am August 09, 2024 8:32am simvastatin 40 mg oral tablet (20 sources) HMG-CoA Reductase Inhibitor Start: 11-28-2016 End: 11-29-2024 take 1 tablet by mouth at bedtime Simvastatin 40 mg tablet Discontinued 40 mg PO AT BEDTIME 90 1 June 30, 2024 4:28pm November 29, 2024 11:39am cholesterol sucralfate 1000 mg oral tablet (20 sources) Aluminum Complex Start: 03-07-2022 End: 07-16-2022 take 1 tablet by mouth before mealtime Sucralfate (Carafate) 1 gram tablet Discontinued 1 g PO before meals 90 0 March 07, 2022 12:00am July 16, 2022 8:22am Start: 03-05-2022 End: 03-07-2022 Sucralfate (Carafate) 100 mg /mL suspension Discontinued 10 mL PO before meals 1000 0 March 05, 2022 12:00am March 07, 2022 10:34am take three times a day, one hour before meals and two hours away from other medications for thirty days. 60 actuat tiotropium 0.47114 mg/actuat inhalation spray (10 sources) Anticholinergic Start: 07-20-2023 End: 07-20-2023 take 1.25 ug by inhalation once daily Tiotropium Dubois (Spiriva Respimat) 1.25 mcg/actuation mist Discontinued 2 NMA INHALATION DAILY 01 15July 20, 2023 12:00am July 20, 2023 8:11am Asthma Unspecified asthma, uncomplicated Start: 07-20-2023 End: 07-20-2023 take 1 puff(s) by inhalation once daily Tiotropium Dubois (Spiriva Respimat) 1.25 mcg/actuation mist Discontinued 2 PUFF INHALATION DAILY July 19, 2023 11:00pm July 20, 2023 7:11am Problems Active Problems Problem Classification Problem Date Documented Da te Episodic/Chronic Abdominal pain (18 sources) Abdominal pain; Translations: [Unspecified abdominal pain] 12-03-2023 Episodic Acute bronchitis (20 sources) Acute bronchitis; Translations: [Acute bronchitis, unspecified] Onset: 12-01-2024 Episodic Asthma (20 sources) Allergic asthma; Translations: [Unspecified asthma, uncomplicated] 06-18-2022 Chronic Comment on above: Allergic Asthma Exac erbation Cardiac dysrhythmias (20 sources) Palpitations; Translations: [Palpitations] Onset: 4 Episodic Chronic obstructive pulmonary disease and bronchiectasis (20 sources) Bronchitis; Translations: [Bronchitis, not specified as acute or chronic] 11-18-2017 Episodic Conditions associated with dizziness or vertigo (20 sources) Dizziness; Translations: [Dizziness and giddiness] Episodic Coronary atherosclerosis and other heart disease (20 sources) Angina pectoris; Translations: [Angina pectoris, unspecified] Onset: 4 Chronic Deficiency and other anemia (16 sources) Anemia; Translations: [Anemia, unspecified] 06-10-2024 Episodic Diabetes mellitus with complications (1 source) [...] Translations: [Hypergammaglobulinemi a, unspecified] Onset: 5 Chronic Immunizations and screening for infectious disease (5 sources) Increased immunoglobulin; Translations: [Other specified abnormal immunological findings in serum] Onset: 5 04-24-2025 Episodic Comment on above: R/O Liver disease Inflammation; infection of eye (except that caused by tuberculosis or sexually transmitteddisease) (12 sources) Acute conjunctivitis of bilateral eyes caused by chemical substance; Translations: [Acute toxic conjunctivitis, bilateral] 04-24-2023 Episodic Intestinal obstruction without hernia (20 sources) Intestinal obstruction co-occurrent and due to decreased peristalsis; Translations: [Ileus, unspecified] 08-08-2021 Episodic Neoplasms of unspecified nature or uncertain behavior (20 sources) Monoclonal gammopathy (clinical); Translations: [Monoclonal gammopathy] Onset: 5 12-21-2024 Chronic Comment on above: M-spike 1.3, IgG Starkey bda light chain.Asymptomatic.Discussed abnormal serum proteins and evaluation.At this time he needs to repeat labs in a few months.Patient agreed. M-spike 1.3, IgG Starkey bda light chain.Asymptomatic.Skeletal survey on 02/09/2025 is negative.R/O Lymphoma. M-spike 1.3, IgG Starkey bda light chain.Asymptomatic.Skeletal survey on 02/09/[address] n/c/a/p on 03/27/2025 reviewed, no evidence of adenopathy. M-spike 1.3, IgG Starkey bda light chain.Asymptomatic.Skeletal survey on 02/09/[address] n/c/a/p on 03/27/2025 reviewed, no evidence of adenopathy or Malignancy. Nonspecific chest pain (20 sources) Chest pain; Translations: [Chest pain, unspecified] Onset: Episodic Other bone disease and musculoskeletal deformities (20 sources) Osteopenia; Translations: [Other specified disorders of bone density and structure, unspecified site] 12-21-2024 Episodic Other connective tissue disease (20 sources) Cramp in lower limb; Translations: [Cramp and spasm] 09-18-2021 Episodic Other connective tissue disease (2 sources) Cramp and spasm; Translations: [Cramp of limb] Episodic Other disorders of stomach and duodenum (10 sources) Delayed gastric emptying; Translations: [Functional dyspepsia] 11-03-2023 Episodic Other disorders of stomach and duodenum (1 source) Functional dyspepsia; Translations: [Dyspepsia and other specified disorders of function of stomach] 11-03-2023 Episodic Other gastrointestinal disorders (20 sources) Dysphagia; Translations: [Dysphagia, unspecified] 12-18-2021 Episodic Other gastrointestinal disorders (20 sources) History of diverticulitis; Translations: [Personal history of other diseases of the digestive system] 09-18-2021 Episodic Other gastrointestinal disorders (20 sources) Constipation; Translations: [Constipation, unspecified] 09-18-2021 Episodic Other gastrointestinal disorders (11 sources) Constipation, unspecified; Translations: [Constipation, unspecified] Episodic Other gastrointestinal disorders (9 sources) Dysphagia, unspecified; Translations: [Dysphagia, unspecified] Episodic Other gastrointestinal disorders (15 sources) Slow transit constipation; Translations: [Slow transit constipation] 07-16-2022 Episodic Other gastrointestinal disorders (4 sources) Slow transit constipation; Translations: [Slow transit constipation] Episodic Other lower respiratory disease (20 sources) Dyspnea on exertion; Translations: [Shortness of breath] 05-15-2022 Episodic Other lower respiratory disease (12 sources) Shortness of breath; Translations: [Shortness of breath] Episodic Other nutritional; endocrine; and metabolic disorders (10 sources) Obesity; Translations: [Obesity, unspecified] 08-28-2023 Chronic Other nutritional; endocrine; and metabolic disorders (1 source) Obesity, unspecified; Translations: [Obesity, unspecified] 08-28-2023 Chronic Other screening for suspected conditions (not mental disorders or infectious disease) (13 sources) Cardiovascular stress test abnormal; Translations: [Abnormal result of other cardiovascular function study] Onset: 4 06-29-2024 Episodic Regional enteritis and ulcerative colitis (20 sources) Colitis; Translations: [Crohn's disease of large intestine without complications] Chronic Residual codes; unclassified (9 sources) Bilateral lower limb edema; Translations: [Localized edema] 03-03-2024 Episodic Past or Other Problems Problem Classification Problem Date Documented Date Episodic/Chronic Deficiency and other anemia (1 source) Anemia, unspecified; Translations: [Anemia, unspecified] Onset: 5 Episodic Other bone disease and [...] and structure, other site] Onset: 5 Episodic Residual codes; unclassified (20 sources) History of cardiac catheterization; Translations: [Other specified postprocedural states] Onset: 2 04-03-2022 Episodic Comment on above: LEFT MAIN: Angiograp hically normal; LEFT ANTERIOR DESCENDING ARTERY:PROX LAD: Mild calcification, Mild luminal irregularities; DIAGONAL 1: Proximal - Mild luminal irregularities; CIRCUMFLEX ARTERY:PROX CIRC: Mild luminal irregularitiesMID CIRC: Mild calcification, Mild luminal irregularities; RIGHT CORONARY ARTERY: Angiographically normal; per cardiac cath 01/16/22 Unclassified (13 sources) radial shortening 05-01-2022 Results Test Name Value Interpretation Reference Range Facility Oncology Visit Reporton 04-11 Oncology Visit Report [facility] [place] [address] OFFICE VISIT Date of Service: 04/24/25 1003 MR#: [id number] Acct: [id number] Name: JOSE SANDOVAL Rep #: [id number] : 1950 From: Miles Armendariz MD Age/Sex: 74/M Location: [facility] [place] [place] Status: Signed HPI Subjective Date of Service 04/24/25 Chief Complaint F/u for High IgG level. History of Present Illness 74-year-old man was found to have high Ig G level of 1748 on 12/16/2024, M spike was 1.3 IgG lambda light chain specificity, also had IgA. He was referred for further evaluation and management. Skeletal survey on 02/09/[address] n/c/a/p done and comes for follow up. He denies weight loss, fever, night sweats or pain. [facility] Medical History Acute bronchitis, unspecified Anemia Constipation [...] not use caffeine: Yes Type: carbonated beverages Intake Vital Signs 03/27/25 11:45 04/24/25 10:04 Height 5 ft 9 in 5 ft 9 in Weight: 86.778 kg 85.729 kg BMI 28.2 27.8 BP 115/71 115/69 Blood Pressure Location Lt brachial Lt brachial Position Sitting Sitting Respiration 18 16 Pulse 90 69 Pulse Source Monitor Monitor Temp 98.9 F 98.2 F Temperature Source Temporal Artery Temporal Artery Pulse Oximetry (%) 94 96 Oxygen Delivery Method room air room air Intake Is patient in pain?: No Allergies amoxicillin Allergy (Verified 04/24/25 10:09) Swelling nitroglycerin Allergy (Verified 04/24/25 10:09) SEVERE HYPOTENSION hydrocodone (From Vicodin) Adverse Reaction (Verified 04/24/25 10:09) Other Medications ???Medication ???Instructions ???Recorded ???Confirmed ???Type [...] DAILY #90 tabs 11/06/23 0 03/27/25 Rx Allergy (cetirizine)) compress.helder,amanda e,reg,lrg #2 ea 03/03/24 03/27/25 Rx amlodipine 5 mg tablet 5 mg PO QDAY #90 tabs 07/13/24 Rx lisinopril 20 mg tablet 20 mg PO DAILY hypertension #90 03/27/25 Rx tabs MDI spacer #1 ea 12/01/24 03/27/25 Rx atorvastatin 40 mg tablet 40 mg PO QPM #90 tabs 01/02/25 Rx glimepiride 2 mg tablet 2 mg PO DAILY 3 months #90 tabs 03/27/25 Rx pantoprazole 40 mg tablet,delayed 40 mg PO QAM GERD #90 tabs 03/27/25 Rx release (Protonix) pioglitazone 30 mg tablet 30 mg PO DAILY #90 tabs 01/02/25 0 03/27/25 Rx metformin 1,000 mg tablet 1,000 mg PO BIDCM diabetes #180 03/27/25 Rx tabs fluticasone furoate 100 1 inh inhalation QDAY #30 ea 03/1303/27/25 Rx mcg/actuation blister powder for inhalation (Arnuity Ellipta) albuterol sulfate 90 mcg/actuation 2 puff inhalation Q4-6H PRN 03/13 01/03 Rx aerosol inhaler (Ventolin HFA) shortness of breath or wheezing #6.7 grams montelukast 10 mg tablet 10 mg PO QPM #90 tabs 04/17/25 Rx Have you fallen in the past year?: No Central Venous Access Central Venous Access: No 03/27/[address]/Soft Tissue Neck WITH Contrast IMPRESSION: No acute abnormality is seen. CT/CT Chest, Abd, Pel w/Contrast IMPRE (more content not included)... Normal [facility] Anion gap in Serum or Plasma Ordered By: Timmy Floyd on 04-21-2025 Anion gap [Moles/Vol] 10 mmol/L 5-15 [facility] BUN/creatinine ratioOrdered By: Timmy Floyd on 04-21-2025 Urea nitrogen/Creatinine [Mass ratio] 27.7 mg/mg High - [facility] Basic Metabolic Profile (BMP )on 04-21-2025 BUN/CRE 27.7 RATIO High 07-31 [facility] Comment on above: Performed By: #### L 506.1001, L500.2500 ####[facility] [address] [place], [address] Calcium [Mass/Vol] 9.8 mg/dL Normal 7.6-11.0 [facility] Comment on above: Performed By: #### L 506.1001, L500.2500 ####[facility] [address] [place], [address] Chloride [Moles/Vol] 103 mmol/L Normal 98-108 [facility] Comment on above: Performed By: #### L 506.1001, L500.2500 ####[facility] [address] [place], [address] CO2 [Moles/Vol] 23.7 mmol/L Normal 21.0-32.0 [facility] Comment on above: Performed By: #### L 506.1001, L500.2500 ####[facility] [address] [place], [address] Creatinine [Mass/Vol] 1.24 mg/dL High 0.70-1.20 [facility] Comment on above: Performed By: #### L 506.1001, L500.2500 ####[facility] [address] [place], [address] GAP 10 Normal 5-15 [facility] Comment on above: Performed By: #### L 506.1001, L500.2500 ####[facility] [address] [place], [address] GFR/1.73 sq M.predicted among non-blacks MDRD (S/P/Bld) [Vol rate/Area] 62 mL/min/{1.73_m2} Normal >60 [facility] Comment on above: Result Comment: mL/m in/1.73m2 CKD-EPI Creatinine Equation (2020) Performed By: #### L 506.1001, L500.2500 ####[facility] [address] [place], [address] Glucose [Mass/Vol] 128 mg/dL High 70-99 [facility] Comment on above: Performed By: #### L 506.1001, L500.2500 ####[facility] [address] [place], [address] Potassium [Moles/Vol] 4.7 mmol/L Normal 3.3-5.1 [facility] Comment on above: Performed By: #### L 506.1001, L500.2500 ####[facility] [address] [place], [address] Sodium [Moles/Vol] 136 mmol/L Normal 133-145 [facility] Comment on above: Performed By: #### L 506.1001, L500.2500 ####[facility] [address] [place], [address] Urea nitrogen [Mass/Vol] 34 mg/dL High 4-19 [facility] Comment on above: Performed By: #### L 506.1001, L500.2500 ####[facility] [address] [place], [address] Carbon dioxide, total [Moles /volume] in Central venous bloodOrdered By: Timmy Floyd on 04-21-2025 CO2 [Moles/Vol] 23.7 mmol/L 21.0-32.0 [facility] Chloride assayOrdered By: Nadya Floyd on 04-21-2025 Chloride [Moles/Vol] 103 mmol/L 98-108 [facility] Glomerular filtration rate ( GFR) estimation/1.73 sq m using serum, plasma, or whole bOrdered By: Timmy Floyd on 04-21-2025 GFR/1.73 sq M.predicted among non-blacks MDRD (S/P/Bld) [Vol rate/Area] 62 mL/min/{1.73_m2} >60 [facility] Comment on above: mL/min/1.73m2 CKD-EP I Creatinine Equation (2020) Potassium measurement (mass/ volume)Ordered By: Timmy Floyd on 04-21-2025 Potassium (Unsp spec) [Mass/Vol] 4.7 mmol/L 3.3-5.1 [facility] Serum creatinine measurement (mass/volume)Ordered By: Timmy Marionmacalfonso on 04-21-2025 Creatinine [Mass/Vol] 1.24 mg/dL High 0.70-1.20 [facility] Serum glucose measurement (m ass/volume)Ordered By: Timmy Marionmacalfonso on 04-21-2025 Glucose [Mass/Vol] 128 mg/dL High 70-99 [facility] Serum or plasma calcium jhon urement (mass/volume)Ordered By: russellhuanrey Marionmacalfonso on 04-21-2025 Calcium [Mass/Vol] 9.8 mg/dL 7.6-11.0 [facility] Serum or plasma urea nitroge n measurement (mass/volume)Ordered By: Nadyarussellhuanrey Marionmacalfonso on 04-21-2025 Urea nitrogen [Mass/Vol] 34 mg/dL High 4-19 [facility] Sodium levelOrdered By: Nadyarussell claudette Donimacalfonso on 04-21-2025 Sodium [Moles/Vol] 136 mmol/L 133-145 [facility] Vitamin D,25 Hydroxyon 04-21 Vitamin D 25-OH 54.3 ng/mL Normal 30-100 [facility] Comment on above: Result Comment: Yolande min D Status Deficiency: <20 ng/mL (50nmol/L) Insufficiency: 20-30 ng/mL (50-75 nmol/L) Sufficiency: 30-100 ng/mL (75-250 nmol/L) Toxicity: >100 ng/mL (>250 nmol/L) Performed By: #### L 506.1001, L500.2500 ####[facility] [address] [place], [place], [address] CREATININE FINGERSTICKon Creatinine [Mass/Vol] 1.2 mg/dL Normal 0.70-1.30 [facility] Comment on above: Performed By: #### L 9100.0200 #### [facility] [address] [place], [address] EGFR WB > 60.0000 Normal >60 [facility] Comment on above: Performed By: #### L 9100.0200 #### [facility] [address] [place], [place], [address] CT Chest, Abd, Pel w/Contras ton 03-27-2025 CT Chest, Abd, Pel w/Contrast [facility] [address] [place] [address] CT Chest, Abd, Pel w/Contrast MR#: [id number] Acct: [id number] Name: JOSE SANDOVAL Rep #: [id number] : 1950 M 74 From: Angel greene MD PCP: Dr. 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 Coronal and Sagittal reconstruction series were provided. One or more dose reduction techniques were used (e.g., Automated exposure control, adjustment of the mA and/or kV according to patient size, use of iterative reconstruction technique. PATIENT PREPARATION: Per protocol ORAL CONTRAST TYPE: None. CONTRAST: Isovue 370 VOLUME: 100mL RADIATION DOSE SUMMARY: CTDlvol: 17.68 mGy DLP: 1003.52 mGycm COMPARISON: None FINDINGS: CT CHEST: Hardware: None Lymph nodes: No hilar or mediastinal lymphadenopathy is seen. Heart and Vasculature: Coronary artery calcifications are noted. Lungs and Airways: No pulmonary mass is seen. Mild increased markings at the lung bases suggestive of linear scarring and/or atelectasis. Pleura: No pleural effusion. Bones: Degenerative changes of the thoracic spine. CT ABDOMEN/PELVIS: Liver: Normal size. No mass. Gallbladder: Unremarkable Spleen: Normal size. Pancreas: Diffuse fatty atrophy. Adrenals: Unremarkable Kidneys: Normal renal sizes. No hydronephrosis. Bladder: Unremarkable. Prior TURP. Bowel: Colonic diverticulosis without diverticulitis. Appendix: Unremarkable Lymph nodes: Unremarkable. Vasculature: Mild diffuse atherosclerotic calcifications are noted. Peritoneum / Retroperitoneum: No retroperitoneal lymph nodes are seen. Bones: Degenerative changes of the spine. CT/CT Chest, Abd, Pel w/Contrast IMPRESSION: No evidence of mediastinal, hilar or retroperitoneal lymphadenopathy. Reading Location: [place] [address] CC: Dr. Timmy Floyd MD; Dr. Miles Armendariz MD Garage Mechanic: Signed Normal [facility] Creatinine measurement at dsideOrdered By: Miles Armendariz on 03-27-2025 Creatinine [Mass/Vol] 1.2 mg/dL 0.70-1.30 [facility] EGFROrdered By: Miles Armendariz on 03-27-2025 GFR/1.73 sq M.predicted among non-blacks MDRD (S/P/Bld) [Vol rate/Area] mL/min/{1.73_m2} >60 [facility] Oncology Visit Reporton 03-12 Oncology Visit Report [facility] [place] [facility] [address] [place] [address] OFFICE VISIT Date of Service: 03/27/25 1142 MR#: [id number] Acct: [id number] Name: JOSE SANDOVAL Rep #: [id number] : 1950 From: Miles Armendariz MD Age/Sex: 74/M Location: [facility] [place] [place] Status: Signed HPI Subjective Date of Service [...] weight loss, fever, night sweats or pain. [facility] Medical History Acute bronchitis, unspecified Anemia Constipation [...] Rx Aller (more content not included)... Normal [facility] Soft Tissue Neck WITH Contra ston 03-27-2025 Soft Tissue Neck WITH Contrast [facility] [address] [place] [address] Soft Tissue Neck WITH Contrast MR#: [id number] Acct: [id number] Name: JOSE SANDOVAL Rep #: [id number] : 1950 M 74 From: Angel greene MD PCP: Dr. Timmy Floyd MD Status: REG CLI Study: Soft Tissue Neck WITH Contrast Date of Exam: 0 03/27/25 Exam# [id number] Ordering Dr: Miles Armendariz MD PROCEDURE: SOFT TISSUE NECK WITH CONTRAST 03/27/2025 REASON FOR EXAM: MGUS R/O LYMPHOMA TECHNIQUE: SOFT TISSUE NECK WITH CONTRAST CONTRAST: Isovue-300 VOLUME: 100 mL One or more dose reduction techniques were used (e.g., Automated exposure control, adjustment of the mA and/or kV according to patient size, use of iterative reconstruction technique). RADIATION DOSE SUMMARY: CTDlvol: 18.64 mGy DLP: 554.25 mGycm COMPARISON: None FINDINGS: Airway: Midline and patent. Salivary glands: Unremarkable. Lymph nodes: No cervical lymphadenopathy. Thyroid: Unremarkable. Vasculature: Carotid arteries and internal jugular veins are unremarkable. Orbits: Unremarkable at visualized levels. Paranasal sinuses and mastoids: Mild degree of mucosal thickening along the inferior aspect of the right maxillary sinus. Lung apices: Unremarkable Upper mediastinum: Unremarkable Bones: Multilevel degenerative changes of the spine. 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 Other: CT/Soft Tissue Neck WITH Contrast IMPRESSION: No acute abnormality is seen. Reading Location: [place] [address] CC: Dr. Timmy Floyd MD; Dr. Miles Armendariz MD Garage Mechanic: Signed Normal [facility] Complement C3on 03-24-2025 COMP C3 155 mg/dL Normal 82-167 [facility] Comment on above: Performed By: #### L 3100.5600, L3100.5700, L101.9900, L3100.5800, L3130.0010, L501.1400, L100.0100, L504.2610, L3100.3425 ####[facility] [address] [place], [place], [id number] Complement C4on 03-24-2025 COMPLEMENT, C4 21 mg/dL Normal 12-38 [facility] Comment on above: Performed By: #### L 3100.5600, L3100.5700, L101.9900, L3100.5800, L3130.0010, L501.1400, L100.0100, L504.2610, L3100.3425 ####[facility] [address] [place], [place], [id number] Complement CH50on 03-24-2025 COMPLEMENT,CH50 > 60 Normal >41 [facility] Comment on above: Result Comment: Age [...] determine out of range values. Performed at: [facility] [address] [id number] Signs Cleaner: Minh Maradiaga PhD, Phone: [phone] Performed By: #### L 3100.5600, L3100.5700, L101.9900, L3100.5800, L3130.0010, L501.1400, L100.0100, L504.2610, L3100.3425 ####[facility] [address] [place], [address] PENNY + Protein Elect, Serumon 03-24-2025 Albumin [Mass/Vol] 3.6 g/dL Normal 2.9-4.4 [facility] Comment on above: Order Comment: Y Performed By: #### L 3100.5600, L3100.5700, L101.9900, L3100.5800, L3130.0010, L501.1400, L100.0100, L504.2610, L3100.3425 ####[facility] [address] [place], [place], [id number] Albumin/Globulin [Mass ratio] 1.0 {ratio} Normal 0.7-1.7 [facility] Comment on above: Order Comment: Y Performed By: #### L 3100.5600, L3100.5700, L101.9900, L3100.5800, L3130.0010, L501.1400, L100.0100, L504.2610, L3100.3425 ####[facility] [address] [place], [address] UDPMH-6-ANCF 0.2 g/dL Normal 0.0-0.4 [facility] Comment on above: Order Comment: Y Performed By: #### L 3100.5600, L3100.5700, L101.9900, L3100.5800, L3130.0010, L501.1400, L100.0100, L504.2610, L3100.3425 ####[facility] [address] [place], [place], [phone](273) RDNNF-0-JSTQ 0.9 g/dL Normal 0.4-1.0 [facility] Comment on above: Order Comment: Y Performed By: #### L 3100.5600, L3100.5700, L101.9900, L3100.5800, L3130.0010, L501.1400, L100.0100, L504.2610, L3100.3425 ####[facility] [address] [place], [place], [phone]) BETA GLOBULIN 0.9 g/dL Normal 0.7-1.3 [facility] Comment on above: Order Comment: Y Performed By: #### L 3100.5600, L3100.5700, L101.9900, L3100.5800, L3130.0010, L501.1400, L100.0100, L504.2610, L3100.3425 ####[facility] [address] [place], [place], [phone](030) GAMMA GLOBULIN 1.6 g/dL Normal 0.4-1.8 [facility] Comment on above: Order Comment: Y Performed By: #### L 3100.5600, L3100.5700, L101.9900, L3100.5800, L3130.0010, L501.1400, L100.0100, L504.2610, L3100.3425 ####[facility] [address] [place], [place], [phone](024) Globulin (S) [Mass/Vol] 3.7 g/dL Normal 2.2-3.[address] [facility] Comment on above: Order Comment: Y Performed By: #### L 3100.5600, L3100.5700, L101.9900, L3100.5800, L3130.0010, L501.1400, L100.0100, L504.2610, L3100.3425 ####[facility] [address] [place], [address] PENNY RESULT,S Comment Abnormal . [facility] Comment on above: Order Comment: Y Result Comment: Immu nofixation shows IgG monoclonal protein with lambda light chain specificity. IGA APPEARS ASYMMETRICAL Performed By: #### L 3100.5600, L3100.5700, L101.9900, L3100.5800, L3130.0010, L501.1400, L100.0100, L504.2610, L3100.3425 ####[facility] [address] [place], [address] IMMUNOGLOB A QN 69 mg/dL Normal 61-437 [facility] Comment on above: Order Comment: Y Performed By: #### L 3100.5600, L3100.5700, L101.9900, L3100.5800, L3130.0010, L501.1400, L100.0100, L504.2610, L3100.3425 ####[facility] [address] [place], [address] IMMUNOGLOB G QN 1857 mg/dL High 603-1613 [facility] Comment on above: Order Comment: Y Performed By: #### L 3100.5600, L3100.5700, L101.9900, L3100.5800, L3130.0010, L501.1400, L100.0100, L504.2610, L3100.3425 ####[facility] [address] [place], [address] IMMUNOGLOB M QN 36 mg/dL Normal 15-143 [facility] Comment on above: Order Comment: Y Performed By: #### L 3100.5600, L3100.5700, L101.9900, L3100.5800, L3130.0010, L501.1400, L100.0100, L504.2610, L3100.3425 ####[facility] [address] [place], [address] M-Rudolph 1.3 g/dL Abnormal Not Observed [facility] Comment on above: Order Comment: Y Performed By: #### L 3100.5600, L3100.5700, L101.9900, L3100.5800, L3130.0010, L501.1400, L100.0100, L504.2610, L3100.3425 ####[facility] [address] [place], [address] NOTE: Comment Normal . [facility] Comment on above: Order Comment: Y Result Comment: Prot ein electrophoresis scan will follow via computer, mail, or [facility] recreation [facility] delivery. Performed By: #### L 3100.5600, L3100.5700, L101.9900, L3100.5800, L3130.0010, L501.1400, L100.0100, L504.2610, L3100.3425 ####[facility] [address] [place], [address] Protein [Mass/Vol] 7.3 g/dL Normal 6.0-8.5 [facility] Comment on above: Order Comment: Y Performed By: #### L 3100.5600, L3100.5700, L101.9900, L3100.5800, L3130.0010, L501.1400, L100.0100, L504.2610, L3100.3425 ####[facility] [address] [place], [address] [place] Lambda Light Chainson 03-24-2025 FR KAPPA LT CHN 18.5 mg/L Normal 3.3-19.4 [facility] Comment on above: Performed By: #### L 3100.5600, L3100.5700, L101.9900, L3100.5800, L3130.0010, L501.1400, L100.0100, L504.2610, L3100.3425 ####[facility] [address] [place], [place], [id number] FR LAMBDA LT CH 348.4 mg/L Abnormal 5.7-26.3 [facility] Comment on above: Performed By: #### L 3100.5600, L3100.5700, L101.9900, L3100.5800, L3130.0010, L501.1400, L100.0100, L504.2610, L3100.3425 ####[facility] [address] [place], [place], [id number] KAPPA/LAMBDA % 0.05 Abnormal 0.26-1.65 [facility] Comment on above: Performed By: #### L 3100.5600, L3100.5700, L101.9900, L3100.5800, L3130.0010, L501.1400, L100.0100, L504.2610, L3100.3425 ####[facility] [address] [place], [place], [phone] Absolute lymphocyte countOrd ered By: Miles Armendariz on 03-20-2025 Lymphocytes Auto (Unsp spec) [#/Vol] 2.69 10*3/uL 0.83-4.51 [facility] Absolute neutrophil countOrd ered By: Miles Armendariz on 03-20-2025 Neutrophils (Bld) [#/Vol] 4.1 10*3/uL 2.0-7.7 [facility] Albumin Elph [Mass/Vol]Order ed By: Miles Armendariz on 03-20-2025 Albumin [Mass/Vol] 3.6 g/dL 2.9-4.4 [facility] Anion gap in Serum or Plasma Ordered By: Miles Armendariz on 03-20-2025 Anion gap [Moles/Vol] 13 mmol/L 5-15 [facility] Automated lymphocyte count a s percentage of total leukocytesOrdered By: Miles Armendariz on 03-20-2025 Lymphocytes/100 WBC Auto (Unsp spec) 31.6 % 19-41 [facility] BUN/creatinine ratioOrdered By: Miles Kala on 03-20-2025 Urea nitrogen/Creatinine [Mass ratio] 27.6 mg/mg High 10-20 [facility] Comment on above: Previous reported re sult: 27.7 RATIOEdited by: AUTOINS on 03/20/25:0909 AMENDED REPORT 03/20/25908 BUN/CRE previously reported as: 27.7 H RATIO Basophil percentageOrdered B y: Miles Tillmanjamie on 03-20-2025 Basophils/100 WBC (Bld) 0.9 % 0-[address] [facility] Bilirubin, totalOrdered By: Miles Kala on 03-20-2025 Bilirubin [Mass/Vol] 0.59 mg/dL 0.00-1.30 [facility] Comment on above: Previous reported re sult: 0.56 mg/dLEdited by: AUTOINS on 03/20/25:0909 AMENDED REPORT 03/20/25908 T BILI previously reported as: 0.56 mg/dL CBC W/Diff, Automatedon Absolute Lymph 2.69 X10 3/uL Normal 0.83-4.51 [facility] Comment on above: Performed By: #### L 3100.5600, L3100.5700, L101.9900, L3100.5800, L3130.0010, L501.1400, L100.0100, L504.2610, L3100.3425 ####[facility] [address] [place], [place], [id number] Absolute Neut 4.1 X10 3/uL Normal 2.0-7.7 [facility] Comment on above: Performed By: #### L 3100.5600, L3100.5700, L101.9900, L3100.5800, L3130.0010, L501.1400, L100.0100, L504.2610, L3100.3425 ####[facility] [address] [place], [phone] Basophils/100 WBC (Bld) 0.9 % Normal 0-[address] [facility] Comment on above: Performed By: #### L 3100.5600, L3100.5700, L101.9900, L3100.5800, L3130.0010, L501.1400, L100.0100, L504.2610, L3100.3425 ####[facility] [address] [place], [phone] Eosinophils/100 WBC (Bld) 10.3 % High 0-5 [facility] Comment on above: Performed By: #### L 3100.5600, L3100.5700, L101.9900, L3100.5800, L3130.0010, L501.1400, L100.0100, L504.2610, L3100.3425 ####[facility] [address] [place], [phone] Erythrocyte distribution width (RBC) [Ratio] 12.8 % Normal 11.6-14.6 [facility] Comment on above: Performed By: #### L 3100.5600, L3100.5700, L101.9900, L3100.5800, L3130.0010, L501.1400, L100.0100, L504.2610, L3100.3425 ####[facility] [address] [place], [phone]) Hematocrit (Bld) [Volume fraction] 37.6 % Low 40-54 [facility] Comment on above: Performed By: #### L 3100.5600, L3100.5700, L101.9900, L3100.5800, L3130.0010, L501.1400, L100.0100, L504.2610, L3100.3425 ####[facility] [address] [place], [phone]) Hemoglobin (Bld) [Mass/Vol] 12.7 g/dL Low 13.0-16.5 [facility] Comment on above: Performed By: #### L 3100.5600, L3100.5700, L101.9900, L3100.5800, L3130.0010, L501.1400, L100.0100, L504.2610, L3100.3425 ####[facility] [address] [place], [address] IG% 0.500 Normal 0.0-0.9 [facility] Comment on above: Result Comment: IG% - Immature Granulocytes (promyelocytes, myelocytes and metamyelocytes) > 1% indicates that a LEFT SHIFT is Present. Performed By: #### L 3100.5600, L3100.5700, L101.9900, L3100.5800, L3130.0010, L501.1400, L100.0100, L504.2610, L3100.3425 ####[facility] [address] [place], [address] Lymphocytes/100 WBC (Bld) 31.6 % Normal 19-41 [facility] Comment on above: Performed By: #### L 3100.5600, L3100.5700, L101.9900, L3100.5800, L3130.0010, L501.1400, L100.0100, L504.2610, L3100.3425 ####[facility] [address] [place], [address] MCH (RBC) [Entitic mass] 31.4 pg Normal 27.0-32.0 [facility] Comment on above: Performed By: #### L 3100.5600, L3100.5700, L101.9900, L3100.5800, L3130.0010, L501.1400, L100.0100, L504.2610, L3100.3425 ####[facility] [address] [place], [address] MCHC (RBC) [Mass/Vol] 33.8 g/dL Normal 32-36 [facility] Comment on above: Performed By: #### L 3100.5600, L3100.5700, L101.9900, L3100.5800, L3130.0010, L501.1400, L100.0100, L504.2610, L3100.3425 ####[facility] [address] [place], [address] MCV (RBC) [Entitic vol] 93.1 fL Normal 80-[address] [facility] Comment on above: Performed By: #### L 3100.5600, L3100.5700, L101.9900, L3100.5800, L3130.0010, L501.1400, L100.0100, L504.2610, L3100.3425 ####[facility] [address] [place], [address] Monocytes/100 WBC (Bld) 8.2 % Normal 0-10 [facility] Comment on above: Performed By: #### L 3100.5600, L3100.5700, L101.9900, L3100.5800, L3130.0010, L501.1400, L100.0100, L504.2610, L3100.3425 ####[facility] [address] [place], [address] Neutrophils/100 WBC (Bld) 48.5 % Normal 47-70 [facility] Comment on above: Performed By: #### L 3100.5600, L3100.5700, L101.9900, L3100.5800, L3130.0010, L501.1400, L100.0100, L504.2610, L3100.3425 ####[facility] [address] [place], [address] Nucleated RBC (Bld) [#/Vol] 0 10*3/uL Normal 0-5 [facility] Comment on above: Performed By: #### L 3100.5600, L3100.5700, L101.9900, L3100.5800, L3130.0010, L501.1400, L100.0100, L504.2610, L3100.3425 ####[facility] [address] [place], [address] Platelet mean volume (Bld) [Entitic vol] 9.3 fL Normal 6.2-12.0 [facility] Comment on above: Performed By: #### L 3100.5600, L3100.5700, L101.9900, L3100.5800, L3130.0010, L501.1400, L100.0100, L504.2610, L3100.3425 ####[facility] [address] [place], [address] Platelets (Bld) [#/Vol] 449 10*3/uL Normal 150-450 [facility] Comment on above: Performed By: #### L 3100.5600, L3100.5700, L101.9900, L3100.5800, L3130.0010, L501.1400, L100.0100, L504.2610, L3100.3425 ####[facility] [address] [place], [address] RBC (Bld) [#/Vol] 4.04 10*6/uL Low 4.6-6.2 [facility] Comment on above: Performed By: #### L 3100.5600, L3100.5700, L101.9900, L3100.5800, L3130.0010, L501.1400, L100.0100, L504.2610, L3100.3425 ####[facility] [address] [place], [address](412) RDW SD 43.7 fl Normal 35.1-43.9 [facility] Comment on above: Performed By: #### L 3100.5600, L3100.5700, L101.9900, L3100.5800, L3130.0010, L501.1400, L100.0100, L504.2610, L3100.3425 ####[facility] [address] [place], [place], [phone] WBC (Bld) [#/Vol] 8.5 10*3/uL Normal 4.4-11.0 [facility] Comment on above: Performed By: #### L 3100.5600, L3100.5700, L101.9900, L3100.5800, L3130.0010, L501.1400, L100.0100, L504.2610, L3100.3425 ####[facility] [address] [place], [place], [phone] CRPon 03-20-2025 C-REACTIVE PROT 3.09 mg/L High 0.0-3.0 [facility] Comment on above: Performed By: #### L 500.4050, L503.0106, L501.6710 #### [facility] [address] [facility] [place], [place], [address] Carbon dioxide, total [Moles /volume] in Central venous bloodOrdered By: Miles Armendariz on 03-20-2025 CO2 [Moles/Vol] 23.0 mmol/L 21.0-32.0 [facility] Comment on above: Previous reported re sult: 23.7 mmol/LEdited by: STEPH on 03/20/25:09 AMENDED REPORT 03/20/25908 CO2 previously reported as: 23.7 mmol/L Chloride assayOrdered By: Maude Armendariz on 03-20-2025 Chloride [Moles/Vol] 102 mmol/L 98-108 [facility] Comprehensive Metabolic Prof ilon 03-20-2025 Albumin [Mass/Vol] 4.2 g/dL Normal 3.4-4.8 [facility] Comment on above: Result Comment: AMENDED REPORT 03/20/25908 ALB previously reported as: 4.3 g/dL Performed By: #### L 500.4050, L503.0106, L501.6710 #### [facility] [address] [place], [address] Albumin/Globulin [Mass ratio] 1.2 {ratio} Normal 0.9-2.4 [facility] Comment on above: Performed By: #### L 500.4050, L503.0106, L501.6710 #### [facility] [address] [place], [address] ALK PHOS 88 U/L Normal 40-129 [facility] Comment on above: Performed By: #### L 500.4050, L503.0106, L501.6710 #### [facility] [address] [place], [address] ALT [Catalytic activity/Vol] 16 U/L Normal <=46 [facility] Comment on above: Performed By: #### L 500.4050, L503.0106, L501.6710 #### [facility] [address] [place], [address] AST [Catalytic activity/Vol] 21 U/L Normal <=37 [facility] Comment on above: Result Comment: AMENDED REPORT 03/20/25908 AST previously reported as: 19 U/L Performed By: #### L 500.4050, L503.0106, L501.6710 #### [facility] [address] [place], [address] Bilirubin [Mass/Vol] 0.59 mg/dL Normal 0.00-1.30 [facility] Comment on above: Result Comment: AMENDED REPORT 03/20/25908 T BILI previously reported as: 0.56 mg/dL Performed By: #### L 500.4050, L503.0106, L501.6710 #### [facility] [address] [place], [address] BUN/CRE 27.6 RATIO High 10-20 [facility] Comment on above: Result Comment: AMENDED REPORT 03/20/25908 BUN/CRE previously reported as: 27.7 H RATIO Performed By: #### L 500.4050, L503.0106, L501.6710 #### [facility] [address] [place], [address] Calcium [Mass/Vol] 9.8 mg/dL Normal 7.6-11.0 [facility] Comment on above: Result Comment: AMENDED REPORT 03/20/25908 CA previously reported as: 9.7 mg/dL Performed By: #### L 500.4050, L503.0106, L501.6710 #### [facility] [address] [place], [address] Chloride [Moles/Vol] 102 mmol/L Normal 98-108 [facility] Comment on above: Performed By: #### L 500.4050, L503.0106, L501.6710 #### [facility] [address] [place], [address] CO2 [Moles/Vol] 23.0 mmol/L Normal 21.0-32.0 [facility] Comment on above: Result Comment: AMENDED REPORT 03/20/25908 CO2 previously reported as: 23.7 mmol/L Performed By: #### L 500.4050, L503.0106, L501.6710 #### [facility] [address] [place], [address] Creatinine [Mass/Vol] 1.26 mg/dL High 0.70-1.20 [facility] Comment on above: Result Comment: AMENDED REPORT 03/20/25908 CREAT,SERUM previously reported as: 1.29 H mg/dL Performed By: #### L 500.4050, L503.0106, L501.6710 #### [facility] [address] [place], [address] GAP 13 Normal 5-15 [facility] Comment on above: Performed By: #### L 500.4050, L503.0106, L501.6710 #### [facility] [address] [place], [address] Globulin (S) [Mass/Vol] 3.5 g/dL Normal 2.2-4.2 [facility] Comment on above: Result Comment: AMENDED REPORT 03/20/25908 GLOB previously reported as: 3.6 g/dL Performed By: #### L 500.4050, L503.0106, L501.6710 #### [facility] [address] [place], [address] Glucose [Mass/Vol] 157 mg/dL High 70-99 [facility] Comment on above: Result Comment: AMENDED REPORT 03/20/25908 GLU previously reported as: 161 H mg/dL Performed By: #### L 500.4050, L503.0106, L501.6710 #### [facility] [address] [place], [address] Potassium [Moles/Vol] 4.7 mmol/L Normal 3.3-5.1 [facility] Comment on above: Performed By: #### L 500.4050, L503.0106, L501.6710 #### [facility] [address] [place], [address] Sodium [Moles/Vol] 138 mmol/L Normal 133-145 [facility] Comment on above: Result Comment: AMENDED REPORT 03/20/25908 NA previously reported as: 137 mmol/L Performed By: #### L 500.4050, L503.0106, L501.6710 #### [facility] [address] [place], [address] T PROT 7.8 g/dL Normal 5.9-8.4 [facility] Comment on above: Result Comment: AMENDED REPORT 03/20/25908 T PROT previously reported as: 7.9 g/dL Performed By: #### L 500.4050, L503.0106, L501.6710 #### [facility] [address] [place], [place], [address] Urea nitrogen [Mass/Vol] 35 mg/dL High 4-19 [facility] Comment on above: Result Comment: AMENDED REPORT 03/20/25908 BUN previously reported as: 36 H mg/dL Performed By: #### L 500.4050, L503.0106, L501.6710 #### [facility] [address] [place], [address] Eosinophil percentageOrdered By: Miles Armendariz on 03-20-2025 Eosinophils/100 WBC (Bld) 10.3 % High 0-5 [facility] Erythrocyte Sed Rateon 03-20 SED RATE 15 mm/hr Normal 0-20 [facility] Comment on above: Performed By: #### L 3100.5600, L3100.5700, L101.9900, L3100.5800, L3130.0010, L501.1400, L100.0100, L504.2610, L3100.3425 ####[facility] [address] [place], [place], [address] Erythrocyte distribution wid th ratioOrdered By: Miles Armendariz on 03-20-2025 Erythrocyte distribution width (RBC) [Ratio] 12.8 % 11.6-14.6 [facility] Erythrocyte distribution wid th standard deviationOrdered By: Miles Armendariz on 03-20-2025 Erythrocyte distribution width (RBC) [Ratio] 43.7 fl 35.1-43.9 [facility] Erythrocyte sedimentation ra teOrdered By: Miles Armendariz on 03-20-2025 ESR (Bld) [Velocity] 15 mm/h 0-20 [facility] Glomerular filtration rate ( GFR) estimation/1.73 sq m using serum, plasma, or whole bOrdered By: Miles Armendariz on 03-20-2025 GFR/1.73 sq M.predicted among non-blacks MDRD (S/P/Bld) [Vol rate/Area] 59 mL/min/{1.73_m2} Low >60 [facility] Comment on above: mL/min/1.73m2 CKD-EP I Creatinine Equation (2020) Hematocrit Auto (Bld) [Volum e fraction]Ordered By: Miles Armendariz on 03-20-2025 Hematocrit (Bld) [Volume fraction] 37.6 % Low 40-54 [facility] Hemoglobin measurementOrdere d By: Miles Armendariz on 03-20-2025 Hemoglobin (Bld) [Mass/Vol] 12.7 g/dL Low 13.0-16.5 [facility] Immature granulocytes/100 WB C Auto (Bld)Ordered By: Miles Armendariz on 03-20-2025 Immature granulocytes/100 WBC (Bld) 0.500 % 0.0-0.9 [facility] Comment on above: IG% - Immature Granu locytes (promyelocytes, myelocytes and metamyelocytes) > 1% indicates that a LEFT SHIFT is Present. Interpretation of serum or p lasma protein pattern by immunofixation (narrative resultOrdered By: Miles Armendariz on 03-20-2025 Protein Fractions Immunofixation Yony [Interp] 1.3 g/dL High Not Observed [facility] LDHon 03-20-2025 LDH 152 U/L Normal 87-241 [facility] Comment on above: Order Comment: 1 Performed By: #### L 3100.5600, L3100.5700, L101.9900, L3100.5800, L3130.0010, L501.1400, L100.0100, L504.2610, L3100.3425 ####[facility] [address] [place], [place], [id number] Laboratory - Chemistry and C hemistry - challengeOrdered By: Miles Armendariz on 03-20-2025 AST [Catalytic activity/Vol] 21 U/L <38 [facility] Comment on above: Previous reported re sult: 19 U/LEdited by: STEPH on 03/20/25:0909 AMENDED REPORT 03/20/25908 AST previously reported as: 19 U/L Lactate dehydrogenase (LDH) measurementOrdered By: Miles Armendariz on 03-20-2025 LDH [Catalytic activity/Vol] 152 U/L 87-241 [facility] MCV (mean corpuscular volume ) determinationOrdered By: Miles Armendariz on 03-20-2025 MCV (RBC) [Entitic vol] 93.1 fL 80-[address] [facility] Mean corpuscular hemoglobin (MCH) determinationOrdered By: Miles Armendariz on 03-20-2025 MCH (RBC) [Entitic mass] 31.4 pg 27.0-32.0 [facility] Mean corpuscular hemoglobin concentration (MCHC) determinationOrdered By: Miles Armendariz on 03-20-2025 MCHC (RBC) [Mass/Vol] 33.8 g/dL 32-36 [facility] Mean platelet volume determi nationOrdered By: Miles Armendariz on 03-20-2025 Platelet mean volume (Bld) [Entitic vol] 9.3 fL 6.2-12.0 [facility] Monocyte percentageOrdered B y: Miles Armendariz on 03-20-2025 Monocytes/100 WBC (Bld) 8.2 % 0-[address] [facility] Neutrophil percentageOrdered By: Miles Armendariz on 03-20-2025 Neutrophils/100 WBC (Bld) 48.5 % 47-70 [facility] No Panel InformationOrdered By: Miles Armendariz on 03-20-2025 Addendum Document Comment . [facility] Comment on above: Protein electrophore sis scan will follow via computer,mail, or [facility] delivery. Nucleated red blood cell per centageOrdered By: Miles Armendariz on 03-20-2025 Nucleated RBC/100 WBC (Bld) [Ratio] 0 % 0-5 [facility] Platelet countOrdered By: Maude Armendariz on 03-20-2025 Platelets (Bld) [#/Vol] 449 10*3/uL 150-450 [facility] Potassium measurement (mass/ volume)Ordered By: Miles Armendariz on 03-20-2025 Potassium (Unsp spec) [Mass/Vol] 4.7 mmol/L 3.3-5.1 [facility] RBC Auto (Bld) [#/Vol]Ordere d By: Miles Armendariz on 03-20-2025 RBC (Bld) [#/Vol] 4.04 10*6/uL Low 4.6-6.2 [facility] Serum creatinine measurement (mass/volume)Ordered By: Miles Armendariz on 03-20-2025 Creatinine [Mass/Vol] 1.26 mg/dL High 0.70-1.20 [facility] Comment on above: Previous reported re sult: 1.29 mg/dLEdited by: Serene OncologyS on 03/20/25:0909 AMENDED REPORT 03/20/25908 CREAT,SERUM previously reported as: 1.29 H mg/dL Serum globulin measurement ( mass/volume)Ordered By: Miles Armendariz on 03-20-2025 Globulin (S) [Mass/Vol] 3.7 g/dL 2.2-3.9 [facility] Serum glucose measurement (m ass/volume)Ordered By: Miles Armendariz on 03-20-2025 Glucose [Mass/Vol] 157 mg/dL High 70-99 [facility] Comment on above: Previous reported re sult: 161 mg/dLEdited by: Serene OncologyAndreina on 03/20/25:0909 AMENDED REPORT 03/20/25908 GLU previously reported as: 161 H mg/dL Serum immunoglobulin kappa l ight chains/immunoglobulin lambda light chains mass ratioOrdered By: Miles Armendariz on 03-20-2025 Immunoglobulin light chains.kappa/Immunoglobul in light chains.lambda (S) [Mass ratio] 0.05 Low 0.26-1.65 [facility] Serum or plasma C reactive p rotein measurement (mass/volume)Ordered By: Miles Armendariz on 03-20-2025 CRP [Mass/Vol] 3.09 mg/L High 0.0-3.0 [facility] Serum or plasma IgA measurem ent (mass/volume)Ordered By: Miles Armendariz on 03-20-2025 IgA [Mass/Vol] 69 mg/dL 61-437 [facility] Serum or plasma IgG measurem ent (mass/volume)Ordered By: Miles Armendariz on 03-20-2025 IgG [Mass/Vol] 1857 mg/dL High 603-1613 [facility] Serum or plasma alanine delgado otransferase (ALT) measurementOrdered By: Miles Armendariz on 03-20-2025 ALT [Catalytic activity/Vol] 16 U/L <47 [facility] Serum or plasma albumin jhon urement (mass/volume)Ordered By: Miles Armendariz on 03-20-2025 Albumin [Mass/Vol] 4.2 g/dL 3.4-4.8 [facility] Comment on above: Previous reported re sult: 4.3 g/dLEdited by: AUTOINS on 03/20/25:0909 AMENDED REPORT 03/20/25908 ALB previously reported as: 4.3 g/dL Serum or plasma albumin/glob ulin mass ratioOrdered By: Miles Armendariz on 03-20-2025 Albumin/Globulin [Mass ratio] 1.2 {ratio} 0.9-2.4 [facility] Serum or plasma alkaline joe sphatase measurementOrdered By: Miles Armendariz on 03-20-2025 ALP [Catalytic activity/Vol] 88 U/L 40-129 [facility] Serum or plasma alpha 1 glob ulin measurement by electrophoresis (mass/volume)Ordered By: Miles Armendariz on 03-20-2025 Alpha 1 globulin Elph [Mass/Vol] 0.2 g/dL 0.0-0.4 [facility] Alpha 1 globulin Elph [Mass/Vol] 0.9 g/dL 0.4-1.0 [facility] Serum or plasma beta globuli n measurement by electrophoresis (mass/volume)Ordered By: Miles Armendariz on 03-20-2025 Beta globulin Elph [Mass/Vol] 0.9 g/dL 0.7-1.3 [facility] Serum or plasma calcium jhon urement (mass/volume)Ordered By: Miles Armendariz on 03-20-2025 Calcium [Mass/Vol] 9.8 mg/dL 7.6-11.0 [facility] Comment on above: Previous reported re sult: 9.7 mg/dLEdited by: AUTOINS on 03/20/25:0909 AMENDED REPORT 03/20/25908 CA previously reported as: 9.7 mg/dL Serum or plasma complement C 4 measurement (mass/volume)Ordered By: Miles Armendariz on 03-20-2025 Complement C4 [Mass/Vol] 21 mg/dL 12-38 [facility] Serum or plasma gamma globul in measurement by electrophoresis (mass/volume)Ordered By: Miles Armendariz on 03-20-2025 Gamma globulin Elph [Mass/Vol] 1.6 g/dL 0.4-1.8 [facility] Serum or plasma immunoelectr ophoresis interpretation (nominal result)Ordered By: Miles Armendariz on 03-20-2025 Interpretation IEP [Interp] Comment High . [facility] Comment on above: Immunofixation shows IgG monoclonal protein with lambdalight chain specificity.IGA APPEARS ASYMMETRICAL Serum or plasma immunoglobul in kappa light chains measurement (mass/volume)Ordered By: Miles Armendariz on 03-20-2025 Immunoglobulin light chains.kappa [Mass/Vol] 18.5 mg/L 3.3-19.4 [facility] Serum or plasma protein jhon urement (mass/volume)Ordered By: Miles Armendariz on 03-20-2025 Protein [Mass/Vol] 7.3 g/dL 6.0-8.5 [facility] Serum or plasma urea nitroge n measurement (mass/volume)Ordered By: Miles Armendariz on 03-20-2025 Urea nitrogen [Mass/Vol] 35 mg/dL High 4-19 [facility] Comment on above: Previous reported re sult: 36 mg/dLEdited by: STEPH on 03/20/25:908 AMENDED REPORT 03/20/25908 BUN previously reported as: 36 H mg/dL Serum or plasma uric acid me asurement (mass/volume)Ordered By: Miles Armendariz on 03-20-2025 Urate [Mass/Vol] 6.0 mg/dL 3.5-7.2 [facility] Comment on above: The drugs N-Acetylcy steine and Metamizole may falsely depress this assay. Sodium levelOrdered By: Robel Armendariz on 03-20-2025 Sodium [Moles/Vol] 138 mmol/L 133-145 [facility] Comment on above: Previous reported re sult: 137 mmol/LEdited by: STEPH on 03/20/25:0909 AMENDED REPORT 03/20/25908 NA previously reported as: 137 mmol/L Total proteinOrdered By: To Armendariz on 03-20-2025 Protein [Mass/Vol] 7.8 g/dL 5.9-8.4 [facility] Comment on above: Previous reported re sult: 7.9 g/dLEdited by: STEPH on 03/20/25:0909 AMENDED REPORT 03/20/25908 T PROT previously reported as: 7.9 g/dL Uric Acidon 03-20-2025 URIC 6.0 mg/dL Normal 3.5-7.2 [facility] Comment on above: Result Comment: The drugs N-Acetylcysteine and Metamizole may falsely depress this assay. Performed By: #### L 3100.5600, L3100.5700, L101.9900, L3100.5800, L3130.0010, L501.1400, L100.0100, L504.2610, L3100.3425 ####[facility] [address] [place], [address] Vitamin B12on 03-20-2025 Cobalamin (Vitamin B12) [Mass/Vol] 388 pg/mL Normal 180-914 [facility] Comment on above: Performed By: #### L 500.4050, L503.0106, L501.6710 #### [facility] [address] [place], [address] Vitamin B12 ser/plasOrdered By: Miles Armendariz on 03-20-2025 Cobalamin (Vitamin B12) [Mass/Vol] 388 pg/mL 180-914 [facility] White blood cell (WBC) count Ordered By: Miles Armendariz on 03-20-2025 WBC (Bld) [#/Vol] 8.5 10*3/uL 4.4-11.0 [facility] Internal Medicine Office Vis cris 03-13-2025 Internal Medicine Office Visit [facility] [address] [place] [address] [address] [place], [place] [id number] OFFICE VISIT Date of Service: 03/13/25 MR#: [id number] Acct: [id number] Name: JOSE SANDOVAL Rep #: [id number] : 1950 Provider: TYSON cardenas Age/Sex: 74/M Location: [facility] [place], [place] Status: Signed Intake Vital Signs 01/09/25 15:05 [...] air Intake Visit Reasons: ACUTE-DEEP COUGH, 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 Denies pain on inspiration. [facility] Medical History Acute bronchitis, unspecified Anemia Constipation [...] for complaints (more content not included)... Normal [facility] Bone Survey Comp(Axial Appen d)on 02-09-2025 Bone Survey Comp(Axial Append) [facility] Imaging Services [address] [place] [address] Bone Survey Comp(Axial Append) MR#: [id number] Acct: [id number] Name: JOSE SANDOVAL Rep #: [id number] : 1950 M 74 From: Miquel Strong MD PCP: Dr. Timmy Floyd MD Status: REG CLI Study: Bone Survey Comp(Axial Append) Date of Exam: 0 02/09/25 Exam# [id number] Ordering Dr: Miles Armendariz MD PROCEDURE: BONE [...] Append) IMPRESSION: NEGATIVE BONE SURVEY. Reading Location: [facility] CC: Dr. Timmy Floyd MD; Dr. Miles Armendariz MD Garage Mechanic: Signed Normal [facility] Oncology Visit Reporton 12-12 Oncology Visit Report [facility] [place] [address] OFFICE VISIT Date of Service: 01/09/25 1459 MR#: [id number] Acct: [id number] Name: JOSE SANDOVAL Rep #: [id number] : 1950 From: Miles Armendariz MD Age/Sex: 74/M Location: [facility] [place] [place] Status: Signed HPI Subjective Date of Service 01/09/25 Chief Complaint Referred for abnormal serum protein. History of Present Illness 74-year-old man was found to have high Ig G level of 1748 on 12/16/2024, M spike was 1.3 IgG lambda light chain specificity, also had IgA. He is now referred for further evaluation and management. He denies weight loss, fever, night sweats or pain. [facility] Medical History (Updated 01/09/25 @ 17:10 by [...] Allergy (ce (more content not included)... Normal [facility] Internal Medicine Office Vis itoalda 01-02-2025 Internal Medicine Office Visit [facility] [address] [place] [address] OFFICE VISIT Date of Service: 01/02/25 MR#: [id number] Acct: [id number] Name: JOSE SANDOVAL Rep #: [id number] : 1950 Provider: Dr. 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 Normal [facility] Laboratory - Hematology and Cell countsOrdered By: Timmy Floyd on 01-02-2025 HbA1c (Bld) [Mass fraction] 6.7 % High 4.2-6.3 [facility] Bone density reportOrdered B y: Angel Torres on 12-29-2024 Study report Skeletal system DXA [facility] Imaging Services [address] [place] [address] Dexa Bone Density Study MR#: [id number] Acct: [id number] Name: JOSE SANDOVAL Rep #: [id number] : 1950 M 74 From: Azam Torres MD PCP: Dr. Timmy Floyd MD Status: R EG CLI Study:Dexa Bone Density Study Date of Exam: 12/29/24 Exam# [id number] Ordering Dr: Nathanael Jackson PA PROCEDURE: DEXA [...] with a low fracture risk. Reading Location: [facility] CC: Dr. Timmy Floyd MD; SUJATA Alvarenga ~ Garage Mechanic: Signed [facility] Dexa Bone Density Studyon Dexa Bone Density Study [facility] Imaging Services [address] [place] [address] 792201 Dexa Bone Density Study MR#: [id number] Acct: [id number] Name: JOSE SANDOVAL Rep #: [id number] : 1950 M 74 From: Angel greene MD PCP: Dr. Timmy Floyd MD Status: REG CLI Study: Dexa Bone Density Study Date of Exam: 12/29/24 Exam# [id number] Ordering Dr: Sean Jackson PROCEDURE: DEXA BONE [...] with a low fracture risk. Reading Location: [facility] CC: Dr. Timmy Floyd MD; SUJATA Alvarenga Garage Mechanic: Signed Normal [facility] Celiac Disease Profileon ENDOMYSIAL IGA Negative Normal Negative [facility] Comment on above: Performed By: #### L 503.6150, L504.2610, L100.9950, L100.0100, L3410.2400, L3100.3425, L503.6550 ####[facility] [address] [place], [place], [id number] tTG IGA <2 Normal 0-3 [facility] Comment on above: Result Comment: Nega tive 0 - 3 Weak Positive 4 - 10 Positive >10 Tissue Transglutaminase (tTG) has been identified as the endomysial antigen. Studies have demonstr- ated that endomysial IgA antibodies have over 99% specificity for gluten sensitive enteropathy. Performed By: #### L 503.6150, L504.2610, L100.9950, L100.0100, L3410.2400, L3100.3425, L503.6550 ####[facility] [address] [place], [address] PENNY + Protein Elect, Serumon 12-21-2024 Albumin [Mass/Vol] 4.0 g/dL Normal 2.9-4.4 [facility] Comment on above: Order Comment: N Performed By: #### L 503.6150, L504.2610, L100.9950, L100.0100, L3410.2400, L3100.3425, L503.6550 ####[facility] [address] [place], [address] Albumin/Globulin [Mass ratio] 1.2 {ratio} Normal 0.7-1.7 [facility] Comment on above: Order Comment: N Performed By: #### L 503.6150, L504.2610, L100.9950, L100.0100, L3410.2400, L3100.3425, L503.6550 ####[facility] [address] [place], [place], [id number] VKJKF-6-DMBM 0.2 g/dL Normal 0.0-0.4 [facility] Comment on above: Order Comment: N Performed By: #### L 503.6150, L504.2610, L100.9950, L100.0100, L3410.2400, L3100.3425, L503.6550 ####[facility] [address] [place], [address] KUYBF-7-IGOD 0.8 g/dL Normal 0.4-1.0 [facility] Comment on above: Order Comment: N Performed By: #### L 503.6150, L504.2610, L100.9950, L100.0100, L3410.2400, L3100.3425, L503.6550 ####[facility] [address] [place], [address] BETA GLOBULIN 0.9 g/dL Normal 0.7-1.3 [facility] Comment on above: Order Comment: N Performed By: #### L 503.6150, L504.2610, L100.9950, L100.0100, L3410.2400, L3100.3425, L503.6550 ####[facility] [address] [place], [address] GAMMA GLOBULIN 1.6 g/dL Normal 0.4-1.8 [facility] Comment on above: Order Comment: N Performed By: #### L 503.6150, L504.2610, L100.9950, L100.0100, L3410.2400, L3100.3425, L503.6550 ####[facility] [address] [place], [address] Globulin (S) [Mass/Vol] 3.6 g/dL Normal 2.2-3.9 [facility] Comment on above: Order Comment: N Performed By: #### L 503.6150, L504.2610, L100.9950, L100.0100, L3410.2400, L3100.3425, L503.6550 ####[facility] [address] [place], [address] PENNY RESULT,S Comment Abnormal . [facility] Comment on above: Order Comment: N Result Comment: Immu nofixation shows IgG monoclonal protein with lambda light chain specificity. PENNY also shows an asymmetrical IgA suggestive of a monoclonal protein. Performed By: #### L 503.6150, L504.2610, L100.9950, L100.0100, L3410.2400, L3100.3425, L503.6550 ####[facility] [address] [place], [address] IMMUNOGLOB A QN 68 mg/dL Normal 61-437 [facility] Comment on above: Order Comment: N Performed By: #### L 503.6150, L504.2610, L100.9950, L100.0100, L3410.2400, L3100.3425, L503.6550 ####[facility] [address] [place], [address] IMMUNOGLOB G QN 1748 mg/dL High 603-1613 [facility] Comment on above: Order Comment: N Performed By: #### L 503.6150, L504.2610, L100.9950, L100.0100, L3410.2400, L3100.3425, L503.6550 ####[facility] [address] [place], [address] IMMUNOGLOB M QN 38 mg/dL Normal 15-143 [facility] Comment on above: Order Comment: N Performed By: #### L 503.6150, L504.2610, L100.9950, L100.0100, L3410.2400, L3100.3425, L503.6550 ####[facility] [address] [place], [address] M-Rudolph 1.3 g/dL Abnormal Not Observed [facility] Comment on above: Order Comment: N Performed By: #### L 503.6150, L504.2610, L100.9950, L100.0100, L3410.2400, L3100.3425, L503.6550 ####[facility] [address] [place], [place], [address] NOTE: Comment Normal . [facility] Comment on above: Order Comment: N Result Comment: Prot ein electrophoresis scan will follow via computer, mail, or director recreation center delivery. Performed at: [address] [id number] Signs Cleaner: Minh Maradiaga PhD, Phone: [phone] Performed By: #### L 503.6150, L504.2610, L100.9950, L100.0100, L3410.2400, L3100.3425, L503.6550 ####[facility] [address] [place], [place], [id number] Protein [Mass/Vol] 7.6 g/dL Normal 6.0-8.5 [facility] Comment on above: Order Comment: N Performed By: #### L 503.6150, L504.2610, L100.9950, L100.0100, L3410.2400, L3100.3425, L503.6550 ####[facility] [address] [place], [place], [address] Internal Medicine Office Vis itoalda 12-21-2024 Internal Medicine Office Visit [facility] [place] [address] [place] [address] OFFICE VISIT Date of Service: 12/21/24 MR#: [id number] Acct: [id number] Name: JOSE SANDOVAL Rep #: [id number] : 1950 Provider: SUJATA Alvarenga Age/Sex: 74/M Location: [facility] [place] [place] Status: Signed Intake Vital Signs 12/01/24 14:15 12/21/24 15:44 Height 5 ft 9 in 5 ft 9 in Weight: 191 lb BMI 28.2 BP 124/78 H Blood Pressure Location Lt brachial Position Sitting Respiration 14 Pulse 84 Pulse Source Monitor Temp 98 F Temp Source Temporal Pulse Oximetry (%) 98 Oxygen Delivery Method room air Intake Visit Reasons: FU ON INHALER Fruit Farmer Required: No Is patient in pain?: No [...] on if he takes it or not. [facility] Medical History Acute bronchitis, unspecified Anemia Constipation [...] not h (more content not included)... Normal [facility] Absolute lymphocyte countOrd ered By: Robert Flores on 12-16-2024 Lymphocytes Auto (Unsp spec) [#/Vol] 1.84 10*3/uL 0.83-4.51 [facility] Absolute neutrophil countOrd ered By: Robert Flores on 12-16-2024 Neutrophils (Bld) [#/Vol] 4.0 10*3/uL 2.0-7.7 [facility] Addendum DocumentOrdered By: Robert Flores on 12-16-2024 Serum Immunofixation Comments Comment . [facility] Comment on above: Protein electrophore sis scan will follow via computer,mail, or director recreation center delivery.Performed at: [facility] [address] [id number] Director: Minh Maradiaga PhD, Phone: [phone] Albumin Elph [Mass/Vol]Order ed By: Robert Flores on 12-16-2024 Albumin [Mass/Vol] 4.0 g/dL 2.9-4.4 [facility] Alpha 1 globulin Elph [Mass/ Vol]Ordered By: Robert Flores on 12-16-2024 Pzktw-7-Ndfvoairu (PENNY) 0.2 g/dL 0.0-0.[address] [facility] Mfvsm-1-Jthnxoiga (PENNY) 0.8 g/dL 0.4-1.[address] [facility] Automated lymphocyte count a s percentage of total leukocytesOrdered By: Robert Flores on 12-16-2024 Lymphocytes/100 WBC Auto (Unsp spec) 26.8 % 19-41 [facility] Basophil percentageOrdered B y: Robert Flores on 12-16-2024 Basophils/100 WBC (Bld) 0.7 % 0-[address] [facility] Beta globulin Elph [Mass/Vol ]Ordered By: Robert Flores on 12-16-2024 Beta-Globulins (PENNY) 0.9 g/dL 0.7-1.3 [facility] CBC W/Diff, Automatedon Absolute Lymph 1.84 X10 3/uL Normal 0.83-4.51 [facility] Comment on above: Performed By: #### L 503.6150, L504.2610, L100.9950, L100.0100, L3410.2400, L3100.3425, L503.6550 #### [facility] [address] [place], [address] Absolute Neut 4.0 X10 3/uL Normal 2.0-7.7 [facility] Comment on above: Performed By: #### L 503.6150, L504.2610, L100.9950, L100.0100, L3410.2400, L3100.3425, L503.6550 #### [facility] [address] [place], [address] Basophils/100 WBC (Bld) 0.7 % Normal 0-[address] [facility] Comment on above: Performed By: #### L 503.6150, L504.2610, L100.9950, L100.0100, L3410.2400, L3100.3425, L503.6550 #### [facility] [address] [place], [address] Eosinophils/100 WBC (Bld) 6.0 % High 0-5 [facility] Comment on above: Performed By: #### L 503.6150, L504.2610, L100.9950, L100.0100, L3410.2400, L3100.3425, L503.6550 #### [facility] [address] [place], [address] Erythrocyte distribution width (RBC) [Ratio] 12.9 % Normal 11.6-14.6 [facility] Comment on above: Performed By: #### L 503.6150, L504.2610, L100.9950, L100.0100, L3410.2400, L3100.3425, L503.6550 #### [facility] [address] [place], [address] Hematocrit (Bld) [Volume fraction] 41.2 % Normal 40-54 [facility] Comment on above: Performed By: #### L 503.6150, L504.2610, L100.9950, L100.0100, L3410.2400, L3100.3425, L503.6550 #### [facility] [address] [place], [address] Hemoglobin (Bld) [Mass/Vol] 13.7 g/dL Normal 13.0-16.5 [facility] Comment on above: Performed By: #### L 503.6150, L504.2610, L100.9950, L100.0100, L3410.2400, L3100.3425, L503.6550 #### [facility] [address] [place], [address] IG% 0.300 Normal 0.0-0.9 [facility] Comment on above: Result Comment: IG% - Immature Granulocytes (promyelocytes, myelocytes and metamyelocytes) > 1% indicates that a LEFT SHIFT is Present. Performed By: #### L 503.6150, L504.2610, L100.9950, L100.0100, L3410.2400, L3100.3425, L503.6550 #### [facility] [address] [place], [address] Lymphocytes/100 WBC (Bld) 26.8 % Normal 19-41 [facility] Comment on above: Performed By: #### L 503.6150, L504.2610, L100.9950, L100.0100, L3410.2400, L3100.3425, L503.6550 #### [facility] [address] [place], [address] MCH (RBC) [Entitic mass] 31.1 pg Normal 27.0-32.0 [facility] Comment on above: Performed By: #### L 503.6150, L504.2610, L100.9950, L100.0100, L3410.2400, L3100.3425, L503.6550 #### [facility] [address] [place], [address] MCHC (RBC) [Mass/Vol] 33.3 g/dL Normal 32-36 [facility] Comment on above: Performed By: #### L 503.6150, L504.2610, L100.9950, L100.0100, L3410.2400, L3100.3425, L503.6550 #### [facility] [address] [place], [address] MCV (RBC) [Entitic vol] 93.4 fL Normal 80-[address] [facility] Comment on above: Performed By: #### L 503.6150, L504.2610, L100.9950, L100.0100, L3410.2400, L3100.3425, L503.6550 #### [facility] [address] [place], [address] Monocytes/100 WBC (Bld) 7.7 % Normal 0-10 [facility] Comment on above: Performed By: #### L 503.6150, L504.2610, L100.9950, L100.0100, L3410.2400, L3100.3425, L503.6550 #### [facility] [address] [place], [address] Neutrophils/100 WBC (Bld) 58.5 % Normal 47-70 [facility] Comment on above: Performed By: #### L 503.6150, L504.2610, L100.9950, L100.0100, L3410.2400, L3100.3425, L503.6550 #### [facility] [address] [place], [address] Nucleated RBC (Bld) [#/Vol] 0 10*3/uL Normal 0-5 [facility] Comment on above: Performed By: #### L 503.6150, L504.2610, L100.9950, L100.0100, L3410.2400, L3100.3425, L503.6550 #### [facility] [address] [place], [address] Platelet mean volume (Bld) [Entitic vol] 9.3 fL Normal 6.2-12.0 [facility] Comment on above: Performed By: #### L 503.6150, L504.2610, L100.9950, L100.0100, L3410.2400, L3100.3425, L503.6550 #### [facility] [address] [place], [address] Platelets (Bld) [#/Vol] 406 10*3/uL Normal 150-450 [facility] Comment on above: Performed By: #### L 503.6150, L504.2610, L100.9950, L100.0100, L3410.2400, L3100.3425, L503.6550 #### [facility] [address] [place], [address] RBC (Bld) [#/Vol] 4.41 10*6/uL Low 4.6-6.2 [facility] Comment on above: Performed By: #### L 503.6150, L504.2610, L100.9950, L100.0100, L3410.2400, L3100.3425, L503.6550 #### [facility] [address] [place], [address] RDW SD 44.2 fl High 35.1-43.9 [facility] Comment on above: Performed By: #### L 503.6150, L504.2610, L100.9950, L100.0100, L3410.2400, L3100.3425, L503.6550 #### [facility] [address] [place], [address] WBC (Bld) [#/Vol] 6.9 10*3/uL Normal 4.4-11.0 [facility] Comment on above: Performed By: #### L 503.6150, L504.2610, L100.9950, L100.0100, L3410.2400, L3100.3425, L503.6550 #### [facility] [address] [place], [address] (121) Endomysial IgA antibody assa yOrdered By: Robert Flores on 12-16-2024 Endomysial IgA Antibody Negative Negative [facility] Eosinophil percentageOrdered By: Robert Flores on 12-16-2024 Eosinophils/100 WBC (Bld) 6.0 % High 0-5 [facility] Erythrocyte distribution wid th ratioOrdered By: Robert Flores on 12-16-2024 Erythrocyte distribution width (RBC) [Ratio] 12.9 % 11.6-14.6 [facility] Erythrocyte distribution wid th standard deviationOrdered By: Robert Flores on 12-16-2024 Erythrocyte distribution width (RBC) [Entitic vol] 44.2 fL High 35.1-43.9 [facility] Erythrocyte distribution width (RBC) [Ratio] 44.2 fl High 35.1-43.9 [facility] Ferritinon 12-16-2024 Ferritin [Mass/Vol] 124 ng/mL Normal 37-417 [facility] Comment on above: Performed By: #### L 503.6150, L504.2610, L100.9950, L100.0100, L3410.2400, L3100.3425, L503.6550 ####[facility] [address] [place], [address] Gamma globulin Elph [Mass/Vo l]Ordered By: Robert Flores on 03-07-2025 Gamma Globulins (PENNY) 1.6 g/dL 0.4-1.8 [facility] Gastroenterology Visit Repor ton 12-16-2024 Gastroenterology Visit Report [facility] [address] [place] [address] OFFICE VISIT Date of Service: 12/16/24 MR#: [id number] Acct: [id number] Name: JOSE SANDOVAL Rep #: [id number] : 1950 Provider: Robert Flores DO Age/Sex: 74/M Location: [facility] Status: Signed Intake Vital Signs 06/10/24 08:57 [...] denies heartburn, (more content not included)... Normal [facility] Hematocrit Auto (Bld) [Volum e fraction]Ordered By: Robert Flores on 12-16-2024 Hematocrit (Bld) [Volume fraction] 41.2 % 40-54 [facility] Hemoglobin (Reticulocytes) [ Entitic mass]Ordered By: Robert Flores on 12-16-2024 Reticulocyte Hemoglobin Equivalent 35.4 pg High 30-35 [facility] Hemoglobin measurementOrdere d By: Robert Flores on 12-16-2024 Hemoglobin (Bld) [Mass/Vol] 13.7 g/dL 13.0-16.5 [facility] IgA [Mass/Vol]Ordered By: Ra katey Flores on 12-16-2024 Immunoglobulin A 68 mg/dL 61-437 [facility] IgG [Mass/Vol]Ordered By: Ra katey Flores on 12-16-2024 Immunoglobulin G 1748 mg/dL High 603-1613 [facility] Immature granulocytes/100 WB C Auto (Bld)Ordered By: Robert Flores on 12-16-2024 Immature granulocytes/100 WBC (Bld) 0.300 % 0.0-0.9 [facility] Comment on above: IG% - Immature Granu locytes (promyelocytes, myelocytes and metamyelocytes) > 1% indicates that a LEFT SHIFT is Present. Immature reticulocyte fracti onOrdered By: Robert Flores on 12-16-2024 Immature Reticulocyte Fraction 8.00 % 3.00-15.90 [facility] Immunoglobulin M measurement Ordered By: Robert Flores on 12-16-2024 Immunoglobulin M 38 mg/dL 15-143 [facility] Interpretation IEP [Interp]O rdered By: Robert Flores on 12-16-2024 Immunofixation Screen Comment High . [facility] Comment on above: Immunofixation shows IgG monoclonal protein with lambdalight chain specificity.PENNY also shows an asymmetrical IgA suggestive of a monoclonalprotein. Interpretation of serum or p lasma protein pattern by immunofixation (narrative resultOrdered By: Robert Flores on 12-16-2024 Protein Fractions Immunofixation Yony [Interp] 1.3 g/dL High Not Observed [facility] Ironon 12-16-2024 Iron [Mass/Vol] 92 ug/dL Normal 65-175 [facility] Comment on above: Performed By: #### L 503.6150, L504.2610, L100.9950, L100.0100, L3410.2400, L3100.3425, L503.6550 ####[facility] [address] [place], [place], [id number] Iron (Unsp spec) [Mass/Mass] Ordered By: Robert Flores on 12-16-2024 Iron [Mass/Vol] 92 ug/dL 65-175 [facility] Iron measurement (mass/mass) Ordered By: Robert Flores on 12-16-2024 Iron (Unsp spec) [Mass/Mass] 92 ug/dL 65-175 [facility] LDHon 12-16-2024 LDH 135 U/L Normal 87-241 [facility] Comment on above: Order Comment: 1 Performed By: #### L 503.6150, L504.2610, L100.9950, L100.0100, L3410.2400, L3100.3425, L503.6550 ####[facility] [address] [place], [address] Lactate dehydrogenase (LDH) measurementOrdered By: Robert Flores on 12-16-2024 LDH [Catalytic activity/Vol] 135 U/L 87-241 [facility] Lymphocytes Auto (Unsp spec) [#/Vol]Ordered By: Robert Flores on 12-16-2024 Lymphocytes (Bld) [#/Vol] 1.84 10*3/uL 0.83-4.5 1 [facility] Lymphocytes/100 WBC Auto (Un sp spec)Ordered By: Robert Flores on 12-16-2024 Lymphocytes/100 WBC (Bld) 26.8 % 19-41 [facility] MCV (mean corpuscular volume ) determinationOrdered By: Robert Flores on 12-16-2024 MCV (RBC) [Entitic vol] 93.4 fL 80-[address] [facility] Mean corpuscular hemoglobin (MCH) determinationOrdered By: Robertkathleen Flores on 12-16-2024 MCH (RBC) [Entitic mass] 31.1 pg 27.0-32.0 [facility] Mean corpuscular hemoglobin concentration (MCHC) determinationOrdered By: Robert Flores on 12-16-2024 MCHC (RBC) [Mass/Vol] 33.3 g/dL 32-36 [facility] Mean platelet volume determi nationOrdered By: Robert Flores on 12-16-2024 Platelet mean volume (Bld) [Entitic vol] 9.3 fL 6.2-12.0 [facility] Monocyte percentageOrdered B y: Robert Flores on 12-16-2024 Monocytes/100 WBC (Bld) 7.7 % 0-[address] [facility] Neutrophil percentageOrdered By: Robert Flores on 12-16-2024 Neutrophils/100 WBC (Bld) 58.5 % 47-70 [facility] No Panel InformationOrdered By: Robert Flores on 12-16-2024 Addendum Document Comment . [facility] Comment on above: Protein electrophore sis scan will follow via computer,mail, or director recreation center delivery.Performed at: [facility] [address] [id number] Director: Minh Maradiaga PhD, Phone: [phone] Nucleated red blood cell per centageOrdered By: Robert Flores on 12-16-2024 Nucleated RBC/100 WBC (Bld) [Ratio] 0 % 0-5 [facility] Platelet countOrdered By: Ra katey Flores on 12-16-2024 Platelets (Bld) [#/Vol] 406 10*3/uL 150-450 [facility] Protein Fractions Immunofixa tion Yony [Interp]Ordered By: Robert Flores on 12-16-2024 M-Rudolph (PENNY) 1.3 g/dL High Not Observed [facility] RBC Auto (Bld) [#/Vol]Ordere d By: Robert Flores on 12-16-2024 RBC (Bld) [#/Vol] 4.41 10*6/uL Low 4.6-6.2 [facility] Retic Panelon 12-16-2024 IM RET FRACTION 8.00 Normal 3.00-15.90 [facility] Comment on above: Performed By: #### L 503.6150, L504.2610, L100.9950, L100.0100, L3410.2400, L3100.3425, L503.6550 #### [facility] [address] [place], [address] RET-HE 35.4 pg High 30-35 [facility] Comment on above: Performed By: #### L 503.6150, L504.2610, L100.9950, L100.0100, L3410.2400, L3100.3425, L503.6550 #### [facility] [address] [place], [address] Retic Count 1.04 Normal 0.5-1.5 [facility] Comment on above: Performed By: #### L 503.6150, L504.2610, L100.9950, L100.0100, L3410.2400, L3100.3425, L503.6550 #### [facility] [address] [place], [address] Reticulocyte hemoglobin equi valent (RET-He) measurementOrdered By: Robert Flores on 12-16-2024 Hemoglobin (Reticulocytes) [Entitic mass] 35.4 pg High 30-35 [facility] Reticulocytes Auto (Bld) [#/ Vol]Ordered By: Robert Flores on 12-16-2024 Reticulocyte Count 1.04 % 0.5-1.5 [facility] Reticulocytes/100 RBC (Bld) 1.04 % 0.5-1.5 [facility] Serum albumin/globulin ratio Ordered By: Robert Flores on 12-16-2024 Albumin/Globulin (PENNY) 1.2 0.7-1.7 [facility] Serum globulin measurement ( mass/volume)Ordered By: Robert Flores on 12-16-2024 Globulin (S) [Mass/Vol] 3.6 g/dL 2.2-3.[address] [facility] Serum or plasma IgA measurem ent (mass/volume)Ordered By: Robert Flores on 12-16-2024 IgA [Mass/Vol] 68 mg/dL 61-437 [facility] Serum or plasma IgG measurem ent (mass/volume)Ordered By: Robert Flores on 12-16-2024 IgG [Mass/Vol] 1748 mg/dL High 603-1613 [facility] Serum or plasma alpha 1 glob ulin measurement by electrophoresis (mass/volume)Ordered By: Robert Flores on 12-16-2024 Alpha 1 globulin Elph [Mass/Vol] 0.2 g/dL 0.0-0.4 [facility] Alpha 1 globulin Elph [Mass/Vol] 0.8 g/dL 0.4-1.0 [facility] Serum or plasma beta globuli n measurement by electrophoresis (mass/volume)Ordered By: Robert Flores on 12-16-2024 Beta globulin Elph [Mass/Vol] 0.9 g/dL 0.7-1.3 [facility] Serum or plasma ferritin darrell surement (mass/volume)Ordered By: Robert Flores on 12-16-2024 Ferritin [Mass/Vol] 124 ng/mL 37-417 [facility] Serum or plasma gamma globul in measurement by electrophoresis (mass/volume)Ordered By: Robert Flores on 12-16-2024 Gamma globulin Elph [Mass/Vol] 1.6 g/dL 0.4-1.8 [facility] Serum or plasma immunoelectr ophoresis interpretation (nominal result)Ordered By: Robert Flores on 12-16-2024 Interpretation IEP [Interp] Comment High . [facility] Comment on above: Immunofixation shows IgG monoclonal protein with lambdalight chain specificity.PENNY also shows an asymmetrical IgA suggestive of a monoclonalprotein. Serum or plasma protein jhon urement (mass/volume)Ordered By: Robert Flores on 12-16-2024 Protein [Mass/Vol] 7.6 g/dL 6.0-8.5 [facility] Serum tissue transglutaminas e (tTG) IgA antibody assay (units/volume)Ordered By: Robert Flores on 12-16-2024 tTG IgA Qn (S) <2 U/mL 0-3 [facility] Comment on above: Negative 0 - 3 Weak Positive 4 - 10 Positive >10 Tissue Transglutaminase (tTG) has been identified as the endomysial antigen. Studies have demonstr- ated that endomysial IgA antibodies have over 99% specificity for gluten sensitive enteropathy. White blood cell (WBC) count Ordered By: Robert Flores on 12-16-2024 WBC (Bld) [#/Vol] 6.9 10*3/uL 4.4-11.0 [facility] tTG IgA Qn (S)Ordered By: Ra katey Flores on 12-16-2024 Tissue Transglutaminase IgA Ab <2 U/mL 0-3 [facility] Comment on above: Negative 0 - 3 Weak Positive 4 - 10 Positive >10 Tissue Transglutaminase (tTG) has been identified as the endomysial antigen. Studies have demonstr- ated that endomysial IgA antibodies have over 99% specificity for gluten sensitive enteropathy. Chest PA and Lateralon 12-01 Chest PA and Lateral [facility] [address] [place] [address] Chest PA and Lateral MR#: [id number] Acct: [id number] Name: JOSE SANDOVAL Rep #: [id number] : 1950 M 74 From: Troy Davila i DO PCP: Dr. Timmy Floyd MD Status: DEP AMB Study: Chest PA and Lateral Date of Exam: 12/01/24 Exam# [id number] Ordering Dr: Sean Jackson PROCEDURE: PA and [...] CT evaluation may be considered. [facility]: Dr. Timmy Floyd MD; SUJATA Alvarenga Garage Mechanic: Signed Normal [facility] Internal Medicine Office Vis iton 12-01-2024 Internal Medicine Office Visit [facility] [address] [place] [address] OFFICE VISIT Date of Service: 12/01/24 MR#: [id number] Acct: [id number] Name: JOSE SANDOVAL Rep #: [id number] : 1950 Provider: SUJATA Alvarenga Age/Sex: 74/M Location: [facility] [place] [place] Status: Signed Intake Vital Signs 11/11/24 09:50 [...] Visit Reasons: BRONCHITIS FU Chief Complaint: fu Fruit Farmer Required: No Accompanied by: Self Is patient [...] the antibiotic questions concerning need for cxr [facility] Medical History Acute bronchitis, unspecified Anemia Constipation [...] mastoid palmira (more content not included)... Normal [facility] Urgent Care Visit Reporton 0 11-21-2024 Urgent Care Visit Report [facility] [address], [address] [place] [address] OFFICE VISIT Date of Service: 11/21/24 MR#: [id number] Acct: [id number] Name: JOSE SANDOVAL Rep #: [id number] : 1950 Provider: SUJATA Fernandez Age/Sex: 74/M Location: [facility] [place] [place] Status: Signed Intake Vital Signs 11/11/24 09:50 [...] patient here for cough for a month. [facility] Medical History (Updated 11/21/24 @ 16:31 by [...] breath or dyspnea on exertion. Non-smoker. No eady-ald-dmrqzbb products taken to assist. No other associated symptoms and no other alleviating/aggravati ng factors. zpack benzon ROS Const Constitutional: No other (As above) Exam Const General: cooperative, healthy appearing and no acute distress Nutritional Appearance: average body habitus Orientation: alert an (more content not included)... Normal [facility] Cardiology Visit Reporton Cardiology Visit Report [facility] [address] [place] [address] OFFICE VISIT Date of Service: 11/11/24 MR#: [id number] Acct: [id number] Name: JOSE SANDOVAL Rep #: [id number] : 1950 Provider: SUJATA Mcneil Age/Sex: 74/M Location: [facility] [place] [place] Status: Signed HPI HPI History of [...] 94 Intake Visit Reasons: 3 M FU Fruit Farmer Required: No Is patient in pain?: No [...] tabs 11/06/23 0 12/01/24 Rx Allergy (cetirizine)) compress.stocking,amanad e,reg,lrg #2 ea 03/03/24 12/01/24 Rx amlodipine [...] Heart diseas (more content not included)... Normal [facility] Cardiology Visit Reporton Cardiology Visit Report [facility] [address] [place] [address] OFFICE VISIT Date of Service: 08/09/24 MR#: [id number] Acct: [id number] Name: JOSE SANDOVAL Rep #: [id number] : 1950 Provider: TYSON gilmore Age/Sex: 73/M Location: [facility] Status: Signed [facility] History of Present Illness Details: Jose [...] Intake Visit Reasons: 1 Y FU/PREV PFM Fruit Farmer Required: No Is patient in pain?: No [...] tablet 20 mg PO DAILY hypertension #90 10/29/24 10/29/24 Rx tabs Have you fallen in the past year?: Yes PFSH Medical History (Reviewed 08/09/24 @ 09:40 by Kathleen Grande ECOLOGICAL TECHNICAL OFFICER, ECOLOGICAL TECHNICAL OFFICER-C) Anemia Constipation Bilateral lower extremity edema Abdominal [...] Ileus Appendicitis radial shortening Diabetes Surgical History (Reviewed 08/09/24 @ 09:40 by Kathleen Grande ECOLOGICAL TECHNICAL OFFICER, ECOLOGICAL TECHNICAL OFFICER-C) History of surgery on arm History of colonoscopy History of left heart catheterization (LHC) ( 01/16/22) History of transurethral resection of prostate Hx of appendectomy H/O arthroscopic knee surgery H/O hernia repair History of carpal tunnel surgery History of knee replacement Family History (Reviewed 08/09/24 @ 09:40 by Kathleen Grande ECOLOGICAL TECHNICAL OFFICER, ECOLOGICAL TECHNICAL OFFICER-C) Grandfather Heart disease Grandfather Heart disease Grandmother Heart disease Social History ... Normal [facility] Cardiac Cath Diagnosticon Cardiac Cath Diagnostic [facility] [address] [place] [address] Cardiac Cath Diagnostic MR#: [id number] Acct: [id number] Name: JOSE SANDOVAL Rep #: [id number] : 1950 73 From: Kelby Seth MD PCP: Dr. Timmy Floyd MD Status:DEP [facility] Patient Name: JOSE SANDOVAL Study Date: 07/13/2024 Performing: Kelby Seth MD Ht: 69 inches 175.26 cm : 1950 Wt: 187.2 lbs 84.82 kg Age: 73 Gender: male BSA: 2.01 PROCEDURE(S) PERFORMED DC01-(21656)LHC/COR/L V CLINICAL PROFILE AND INDICATIONS Indications: Worsening [...] multiple views using a 5 Fr. 4.0 [place] catheter. Right Coronary Artery selective angiography was then performed in multiple views using a 5 Fr. 4.0 [place] catheter. Left Ventriculography was performed in [place] [...] Kelby Seth MD 07/15/24 1011 Date Kelby Seth MD Cosigner Signature: Date (if indicated) CC: Dr. Kelby Seth MD; Dr. Timmy Floyd MD Date Dictated: 07/13/24 1243 Date Transcribed: 07/15/24 1010 Garage Mechanic: [place] Signed Normal [facility] Basic Metabolic Profile (BMP )on 06-29-2024 BUN/CRE 23.3 RATIO High 10-20 [facility] Comment on above: Performed By: #### L 100.0100, L500.2500, L300.3900 ####[facility] [address] [place], [address] CA,Total 9.7 mg/dL Normal 8.5-10.1 [facility] Comment on above: Performed By: #### L 100.0100, L500.2500, L300.3900 ####[facility] [address] [place], [address] Chloride [Moles/Vol] 104 mmol/L Normal 98-107 [facility] Comment on above: Performed By: #### L 100.0100, L500.2500, L300.3900 ####[facility] [address] [place], [address] CO2 [Moles/Vol] 27.0 mmol/L Normal 21.0-32.0 [facility] Comment on above: Performed By: #### L 100.0100, L500.2500, L300.3900 ####[facility] [address] [place], [address] Creatinine [Mass/Vol] 1.29 mg/dL Normal 0.70-1.30 [facility] Comment on above: Result Comment: The validity of the calculated GFR GFRAA in patients over 70 years has not been determined. Clinical correlation is essential. Performed By: #### L 100.0100, L500.2500, L300.3900 ####[facility] [address] [place], [address] EST GFR - AA 71 mL/min Normal >60 [facility] Comment on above: Result Comment: Afri can Indonesian GFR Calc Performed By: #### L 100.0100, L500.2500, L300.3900 ####[facility] [address] [place], [address] GAP 7 Normal 5-15 [facility] Comment on above: Performed By: #### L 100.0100, L500.2500, L300.3900 ####[facility] [address] [place], [address] GFR/1.73 sq M.predicted among non-blacks MDRD (S/P/Bld) [Vol rate/Area] 58 mL/min/{1.73_m2} Low >60 [facility] Comment on above: Result Comment: Non- GFR Calc Performed By: #### L 100.0100, L500.2500, L300.3900 ####[facility] [address] [place], [address] Glucose [Mass/Vol] 115 mg/dL High 74-106 [facility] Comment on above: Result Comment: Fast ing Glucose result from 100 to 125 mg/dL suggests IMPAIRED HOMEOSTASIS per A.D.A. criteria. Performed By: #### L 100.0100, L500.2500, L300.3900 ####[facility] [address] [place], [address] Potassium [Moles/Vol] 4.4 mmol/L Normal 3.5-5.1 [facility] Comment on above: Performed By: #### L 100.0100, L500.2500, L300.3900 ####[facility] [address] [place], [address] Sodium [Moles/Vol] 138 mmol/L Normal 136-145 [facility] Comment on above: Performed By: #### L 100.0100, L500.2500, L300.3900 ####[facility] [address] [place], [address] Urea nitrogen [Mass/Vol] 30 mg/dL High 7-18 [facility] Comment on above: Performed By: #### L 100.0100, L500.2500, L300.3900 ####[facility] [address] [place], [address] CBC W/Diff, Automatedon 06-12 Absolute Lymph 1.59 X10 3/uL Normal 0.83-4.51 [facility] Comment on above: Performed By: #### L 100.0100, L500.2500, L300.3900 ####[facility] [address] [place], [address] Absolute Neut 3.2 X10 3/uL Normal 2.0-7.7 [facility] Comment on above: Performed By: #### L 100.0100, L500.2500, L300.3900 ####[facility] [address] [place], [address] Basophils/100 WBC (Bld) 0.4 % Normal 0-[address] [facility] Comment on above: Performed By: #### L 100.0100, L500.2500, L300.3900 ####[facility] [address] [place], [address] Eosinophils/100 WBC (Bld) 1.9 % Normal 0-5 [facility] Comment on above: Performed By: #### L 100.0100, L500.2500, L300.3900 ####[facility] [address] [place], [address] Erythrocyte distribution width (RBC) [Ratio] 13.1 % Normal 11.6-14.6 [facility] Comment on above: Performed By: #### L 100.0100, L500.2500, L300.3900 ####[facility] [address] [place], [address] Hematocrit (Bld) [Volume fraction] 36.0 % Low 40-54 [facility] Comment on above: Performed By: #### L 100.0100, L500.2500, L300.3900 ####[facility] [address] [place], [address] Hemoglobin (Bld) [Mass/Vol] 11.9 g/dL Low 13.0-16.5 [facility] Comment on above: Performed By: #### L 100.0100, L500.2500, L300.3900 ####[facility] [address] [place], [address] IG% 0.400 Normal 0.0-0.9 [facility] Comment on above: Result Comment: IG% - Immature Granulocytes (promyelocytes, myelocytes and metamyelocytes) > 1% indicates that a LEFT SHIFT is Present. Performed By: #### L 100.0100, L500.2500, L300.3900 ####[facility] [address] [place], [address] Lymphocytes/100 WBC (Bld) 29.8 % Normal 19-41 [facility] Comment on above: Performed By: #### L 100.0100, L500.2500, L300.3900 ####[facility] [address] [place], [address] MCH (RBC) [Entitic mass] 31.1 pg Normal 27.0-32.0 [facility] Comment on above: Performed By: #### L 100.0100, L500.2500, L300.3900 ####[facility] [address] [place], [address] MCHC (RBC) [Mass/Vol] 33.1 g/dL Normal 32-36 [facility] Comment on above: Performed By: #### L 100.0100, L500.2500, L300.3900 ####[facility] [address] [place], [address] MCV (RBC) [Entitic vol] 94.0 fL Normal 80-94 [facility] Comment on above: Performed By: #### L 100.0100, L500.2500, L300.3900 ####[facility] [address] [place], [address] Monocytes/100 WBC (Bld) 7.7 % Normal 0-10 [facility] Comment on above: Performed By: #### L 100.0100, L500.2500, L300.3900 ####[facility] [address] [place], [address] Neutrophils/100 WBC (Bld) 59.8 % Normal 47-70 [facility] Comment on above: Performed By: #### L 100.0100, L500.2500, L300.3900 ####[facility] [address] [place], [address] Nucleated RBC (Bld) [#/Vol] 0 10*3/uL Normal 0-5 [facility] Comment on above: Performed By: #### L 100.0100, L500.2500, L300.3900 ####[facility] [address] [place], [address] Platelet mean volume (Bld) [Entitic vol] 9.2 fL Normal 6.2-12.0 [facility] Comment on above: Performed By: #### L 100.0100, L500.2500, L300.3900 ####[facility] [address] [place], [address] Platelets (Bld) [#/Vol] 318 10*3/uL Normal 150-450 [facility] Comment on above: Performed By: #### L 100.0100, L500.2500, L300.3900 ####[facility] [address] [place], [address] RBC (Bld) [#/Vol] 3.83 10*6/uL Low 4.6-6.2 [facility] Comment on above: Performed By: #### L 100.0100, L500.2500, L300.3900 ####[facility] [address] [place], [address] RDW SD 44.8 fl High 35.1-43.9 [facility] Comment on above: Performed By: #### L 100.0100, L500.2500, L300.3900 ####[facility] [address] [place], [address] WBC (Bld) [#/Vol] 5.3 10*3/uL Normal 4.4-11.0 [facility] Comment on above: Performed By: #### L 100.0100, L500.2500, L300.3900 ####[facility] [address] [place], [address] Cardiology Visit Reporton Cardiology Visit Report [facility] 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 Normal [facility] Chest PA and Lateralon 06-29 Chest PA and Lateral [facility] [address] [place] [address] Chest PA and Lateral MR#: [id number] Acct: [id number] Name: JOSE SANDOVAL Rep #: [id number] : 1950 M 73 From: Nelson Evans MD PCP: Dr. Timmy Floyd MD Status: REG CLI Study: Chest PA and Lateral Date of Exam: 06/29/24 Exam# [id number] Ordering Dr: Sarita Murillo [place] [id number] STUDY: X-RAY CHEST REASON FOR EXAM: Male, [...] Signed: Nelson Evans MD at 10:56 EDT Reading Location ID and State: [facility] / [place] , Service support , CC: Dr. 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, [address] PT Coag (PPP) [Time] 13.9 s Normal 11.7-14.9 [facility] Comment on above: Performed By: #### L 100.0100, L500.2500, L300.3900 ####[facility] [address] [facility] [place], [address] Stress Reporton 06-28-2024 Stress Report [facility] [address] [place] [address] MR#: [id number] Acct: [id number] Name: JOSE SANDOVAL Rep #: [id number] : 1950 73 From: Keiko Arrieta MD [...] of %. This note was generated with Emitlessation software. It may contain incorrect words, spelling, and punctuation that were not noted in checking the note before signing. 06/28/24 1215 Date Keiko Arrieta MD CC: Dr. Timmy Floyd MD Date Dictated: 06/28/24 1212 Date Transcribed: 06/28/241211 Garage Mechanic: DAVID Signed Normal [facility] Gastroenterology Visit Repor ton 06-17-2024 Gastroenterology Visit Report [facility] [address] [place] [address] OFFICE VISIT Date of Service: 06/17/24 MR#: [id number] Acct: [id number] Name: JOSE SANDOVAL Rep #: [id number] : 1950 Provider: SUJATA Tay Age/Sex: 73/M Location: [facility] Status: Signed Intake Vital Signs 08/28/23 10:16 [...] QHS cholesterol #90 tabs 12/08/23 06/17/24 Rx compress.amanda pendleton e,reg,lrg #2 ea 03/03/24 [...] 06/17/24 History mcg-formot 4.8 mcg/actuation HFA inhaler ([email or web address]) Have you fallen in the past year?: No PFSH Medical History (Updated 06/10/24 @ 13:24 by [...] some w (more content not included)... Normal [facility] CBC W/Diff, Automatedon 08-3 0-2023 Absolute Lymph 1.52 X10 3/uL Normal 0.83-4.51 [facility] Comment on above: Performed By: #### L 100.0100, L501.9910, L500.4100, L500.4050 ####[facility] [address] [place], [address] Absolute Neut 2.4 X10 3/uL Normal 2.0-7.7 [facility] Comment on above: Performed By: #### L 100.0100, L501.9910, L500.4100, L500.4050 ####[facility] [address] [place], [address] Basophils/100 WBC (Bld) 0.9 % Normal 0-[address] [facility] Comment on above: Performed By: #### L 100.0100, L501.9910, L500.4100, L500.4050 ####[facility] [address] [place], [address] Eosinophils/100 WBC (Bld) 2.3 % Normal 0-5 [facility] Comment on above: Performed By: #### L 100.0100, L501.9910, L500.4100, L500.4050 ####[facility] [address] [place], [address] Erythrocyte distribution width (RBC) [Ratio] 12.9 % Normal 11.6-14.6 [facility] Comment on above: Performed By: #### L 100.0100, L501.9910, L500.4100, L500.4050 ####[facility] [address] [place], [address] Hematocrit (Bld) [Volume fraction] 38.4 % Low 40-54 [facility] Comment on above: Performed By: #### L 100.0100, L501.9910, L500.4100, L500.4050 ####[facility] [address] [place], [address] Hemoglobin (Bld) [Mass/Vol] 12.4 g/dL Low 13.0-16.5 [facility] Comment on above: Performed By: #### L 100.0100, L501.9910, L500.4100, L500.4050 ####[facility] [address] [place], [address] IG% 0.200 Normal 0.0-0.9 [facility] Comment on above: Result Comment: IG% - Immature Granulocytes (promyelocytes, myelocytes and metamyelocytes) > 1% indicates that a LEFT SHIFT is Present. Performed By: #### L 100.0100, L501.9910, L500.4100, L500.4050 ####[facility] [address] [place], [address] Lymphocytes/100 WBC (Bld) 34.2 % Normal 19-41 [facility] Comment on above: Performed By: #### L 100.0100, L501.9910, L500.4100, L500.4050 ####[facility] [address] [place], [address] MCH (RBC) [Entitic mass] 30.0 pg Normal 27.0-32.0 [facility] Comment on above: Performed By: #### L 100.0100, L501.9910, L500.4100, L500.4050 ####[facility] [address] [place], [address] MCHC (RBC) [Mass/Vol] 32.3 g/dL Normal 32-36 [facility] Comment on above: Performed By: #### L 100.0100, L501.9910, L500.4100, L500.4050 ####[facility] [address] [place], [address] MCV (RBC) [Entitic vol] 93.0 fL Normal 80-94 [facility] Comment on above: Performed By: #### L 100.0100, L501.9910, L500.4100, L500.4050 ####[facility] [address] [place], [address] Monocytes/100 WBC (Bld) 8.3 % Normal 0-10 [facility] Comment on above: Performed By: #### L 100.0100, L501.9910, L500.4100, L500.4050 ####[facility] [address] [place], [address] Neutrophils/100 WBC (Bld) 54.1 % Normal 47-70 [facility] Comment on above: Performed By: #### L 100.0100, L501.9910, L500.4100, L500.4050 ####[facility] [address] [place], [address] Nucleated RBC (Bld) [#/Vol] 0 10*3/uL Normal 0-5 [facility] Comment on above: Performed By: #### L 100.0100, L501.9910, L500.4100, L500.4050 ####[facility] [address] [place], [address] Platelet mean volume (Bld) [Entitic vol] 9.6 fL Normal 6.2-12.0 [facility] Comment on above: Performed By: #### L 100.0100, L501.9910, L500.4100, L500.4050 ####[facility] [address] [place], [address] Platelets (Bld) [#/Vol] 340 10*3/uL Normal 150-450 [facility] Comment on above: Performed By: #### L 100.0100, L501.9910, L500.4100, L500.4050 ####[facility] [address] [place], [address] RBC (Bld) [#/Vol] 4.13 10*6/uL Low 4.6-6.2 [facility] Comment on above: Performed By: #### L 100.0100, L501.9910, L500.4100, L500.4050 ####[facility] [address] [place], [address] RDW SD 43.8 fl Normal 35.1-43.9 [facility] Comment on above: Performed By: #### L 100.0100, L501.9910, L500.4100, L500.4050 ####[facility] [address] [place], [address] WBC (Bld) [#/Vol] 4.4 10*3/uL Normal 4.4-11.0 [facility] Comment on above: Performed By: #### L 100.0100, L501.9910, L500.4100, L500.4050 ####[facility] [address] [place], [address] Comprehensive Metabolic Prof ilon 06-10-2024 Albumin [Mass/Vol] 3.6 g/dL Normal 3.2-5.0 [facility] Comment on above: Performed By: #### L 100.0100, L501.9910, L500.4100, L500.4050 ####[facility] [address] [place], [address] Albumin/Globulin [Mass ratio] 0.9 {ratio} Normal 0.9-2.4 [facility] Comment on above: Performed By: #### L 100.0100, L501.9910, L500.4100, L500.4050 ####[facility] [address] [place], [address] ALK P 72 U/L Normal 45-117 [facility] Comment on above: Performed By: #### L 100.0100, L501.9910, L500.4100, L500.4050 ####[facility] [address] [place], [address] ALT [Catalytic activity/Vol] 17 U/L Normal 16-61 [facility] Comment on above: Performed By: #### L 100.0100, L501.9910, L500.4100, L500.4050 ####[facility] [address] [place], [address] AST [Catalytic activity/Vol] 14 U/L Low 15-37 [facility] Comment on above: Performed By: #### L 100.0100, L501.9910, L500.4100, L500.4050 ####[facility] [address] [place], [address] Bilirubin [Mass/Vol] 0.50 mg/dL Normal 0.20-1.00 [facility] Comment on above: Result Comment: For patients on eltrombopag therapy, use of Dimension [place] TBIL is not recommended. Performed By: #### L 100.0100, L501.9910, L500.4100, L500.4050 ####[facility] [address] [place], [address] BUN/CRE 21.7 RATIO High 10-20 [facility] Comment on above: Performed By: #### L 100.0100, L501.9910, L500.4100, L500.4050 ####[facility] [address] [place], [address] CA,Total 9.6 mg/dL Normal 8.5-10.1 [facility] Comment on above: Performed By: #### L 100.0100, L501.9910, L500.4100, L500.4050 ####[facility] [address] [place], [address] Chloride [Moles/Vol] 103 mmol/L Normal 98-107 [facility] Comment on above: Performed By: #### L 100.0100, L501.9910, L500.4100, L500.4050 ####[facility] [address] [place], [address] CO2 [Moles/Vol] 28.0 mmol/L Normal 21.0-32.0 [facility] Comment on above: Performed By: #### L 100.0100, L501.9910, L500.4100, L500.4050 ####[facility] [address] [place], [address] Creatinine [Mass/Vol] 1.38 mg/dL High 0.70-1.30 [facility] Comment on above: Result Comment: The validity of the calculated GFR GFRAA in patients over 70 years has not been determined. Clinical correlation is essential. Performed By: #### L 100.0100, L501.9910, L500.4100, L500.4050 ####[facility] [address] [place], [address] EST GFR - AA 65 mL/min Normal >60 [facility] Comment on above: Result Comment: Afri can Indonesian GFR Calc Performed By: #### L 100.0100, L501.9910, L500.4100, L500.4050 ####[facility] [address] [place], [address] GAP 5 Normal 5-15 [facility] Comment on above: Performed By: #### L 100.0100, L501.9910, L500.4100, L500.4050 ####[facility] [address] [place], [address] GFR/1.73 sq M.predicted among non-blacks MDRD (S/P/Bld) [Vol rate/Area] 54 mL/min/{1.73_m2} Low >60 [facility] Comment on above: Result Comment: Non- GFR Calc Performed By: #### L 100.0100, L501.9910, L500.4100, L500.4050 ####[facility] [address] [place], [address] Globulin (S) [Mass/Vol] 3.8 g/dL Normal 2.2-4.2 [facility] Comment on above: Performed By: #### L 100.0100, L501.9910, L500.4100, L500.4050 ####[facility] [address] [place], [address] Glucose [Mass/Vol] 117 mg/dL High 74-106 [facility] Comment on above: Result Comment: Fast ing Glucose result from 100 to 125 mg/dL suggests IMPAIRED HOMEOSTASIS per A.D.A. criteria. Performed By: #### L 100.0100, L501.9910, L500.4100, L500.4050 ####[facility] [address] [place], [address] Potassium [Moles/Vol] 3.9 mmol/L Normal 3.5-5.1 [facility] Comment on above: Performed By: #### L 100.0100, L501.9910, L500.4100, L500.4050 ####[facility] [address] [place], [address] Sodium [Moles/Vol] 136 mmol/L Normal 136-145 [facility] Comment on above: Performed By: #### L 100.0100, L501.9910, L500.4100, L500.4050 ####[facility] [address] [place], [address] T PROT 7.4 g/dL Normal 6.4-8.2 [facility] Comment on above: Performed By: #### L 100.0100, L501.9910, L500.4100, L500.4050 ####[facility] [address] [place], [address] Urea nitrogen [Mass/Vol] 30 mg/dL High 7-18 [facility] Comment on above: Performed By: #### L 100.0100, L501.9910, L500.4100, L500.4050 ####[facility] [address] [place], [address] Ferritinon 06-10-2024 Ferritin [Mass/Vol] 68 ng/mL Normal 26-388 [facility] Comment on above: Performed By: #### L 503.6550, L503.6075, L503.6150 ####[facility] [address] [place], [address] Internal Medicine Office Vis cris 06-10-2024 Internal Medicine Office Visit [facility] [address] [place], [place] [address] OFFICE VISIT Date of Service: 06/10/24 MR#: [id number] Acct: [id number] Name: JOSE SANDOVAL Rep #: [id number] : 1950 Provider: Dr. 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 Normal [facility] Ironon 06-10-2024 Iron [Mass/Vol] 92 ug/dL Normal 65-175 [facility] Comment on above: Performed By: #### L 503.6550, L503.6075, L503.6150 ####[facility] [address] [place], [address] Iron Binding Capacity,Totalo n 06-10-2024 TIBC 298 ug/dL Normal 250-450 [facility] Comment on above: Performed By: #### L 503.6550, L503.6075, L503.6150 ####[facility] [address] [place], [address] Lipid Profileon 06-10-2024 Cholesterol [Mass/Vol] 130 mg/dL Normal 200 [facility] Comment on above: Result Comment: <200 mg/dL Desirable 200-240 mg/dL Borderline >240 mg/dL High Risk Performed By: #### L 100.0100, L501.9910, L500.4100, L500.4050 ####[facility] [address] [place], [address] Cholesterol in HDL [Mass/Vol] 69 mg/dL Normal [facility] Comment on above: Result Comment: The drugs N-Acetylcysteine and Metamizole may falsely depress this assay. Reference Range HDL <40 mg/dL Low HDL Cholesterol HDL >or= 60 mg/dL High HDL Cholesterol Performed By: #### L 100.0100, L501.9910, L500.4100, L500.4050 ####[facility] [address] [place], [address] Cholesterol in LDL [Mass/Vol] 52 mg/dL Normal 0-130 [facility] Comment on above: Performed By: #### L 100.0100, L501.9910, L500.4100, L500.4050 ####[facility] [address] [place], [address] Cholesterol in VLDL [Mass/Vol] 9 mg/dL Normal 5-40 [facility] Comment on above: Performed By: #### L 100.0100, L501.9910, L500.4100, L500.4050 ####[facility] [address] [place], [address] Triglyceride [Mass/Vol] 43 mg/dL Normal [facility] Comment on above: Result Comment: The drugs N-Acetylcysteine and Metamizole may falsely depress this assay. Serum Triglycerides Reference Interval Normal <150 mg/dL Borderline high 150 - 199 mg/dL High 200 - 499 mg/dL Very High > or = 500 mg/dL Performed By: #### L 100.0100, L501.9910, L500.4100, L500.4050 ####[facility] [address] [place], [address] PSA,Total - Annual Screenon 06-10-2024 PSA,TOT SCREEN 1.14 ng/mL Normal 0.00-4.00 [facility] Comment on above: Result Comment: This test was performed using the TPSA assay method for the [employer] chemistry system. Values obtained with different assay methods cannot be used interchangably. When changing PSA assays in the course of monitoring a patient, additional sequential testing should be carried out to confirm baseline values. Performed By: #### L 100.0100, L501.9910, L500.4100, L500.4050 ####[facility] [address] [place], [address] Basophil percentageOrdered B y: Timmy Floyd on 12-03-2023 Bilirubin [Mass/Vol] 0.70 mg/dL 0.20-1.00 [facility] Comment on above: For patients on eltr ombopag therapy, use of Dimension [place] TBIL is not recommended. Chloride [Moles/Vol] 104 mmol/L 98-107 [facility] Glucose [Mass/Vol] 103 mg/dL 74-106 [facility] Comment on above: Fasting Glucose resu lt from 100 to 125 mg/dL suggests IMPAIRED HOMEOSTASIS per A.D.A. criteria. Potassium [Moles/Vol] 4.4 mmol/L 3.5-5.1 [facility] Protein [Mass/Vol] 7.5 g/dL 6.4-8.2 [facility] Sodium [Moles/Vol] 137 mmol/L 136-145 [facility] Laboratory - Chemistry and C hemistry - challengeOrdered By: Timmy Floyd on 12-03-2023 Albumin/Globulin [Mass ratio] 1.0 {ratio} 0.9-2.4 [facility] ALP [Catalytic activity/Vol] 67 U/L 45-117 [facility] ALT [Catalytic activity/Vol] 23 U/L 16-61 [facility] CO2 [Moles/Vol] 28.0 mmol/L 21.0-32.0 [facility] Globulin (S) [Mass/Vol] 3.7 g/dL 2.2-4.2 [facility] Urea nitrogen/Creatinine [Mass ratio] 35.3 mg/mg 10-20 [facility] Laboratory - Hematology and Cell countson 12-03-2023 HbA1c (Bld) [Mass fraction] 8.2 % 4.2-6.3 [facility] No Panel InformationOrdered By: Timmy Floyd on 12-03-2023 Estimated GFR (MDRD) Amer 78 mL/min >60 [facility] Comment on above: GFR Calc Estimated GFR (MDRD) Non-Af Amer 64 mL/min >60 [facility] Comment on above: Non- GFR Calc Urine Microalbumin/Creatinine Ratio 16.9 mg/g CRE <30 [facility] Serum or plasma calcium jhon urement (mass/volume)Ordered By: Timmy Floyd on 12-03-2023 Calcium [Mass/Vol] 9.7 mg/dL 8.5-10.1 [facility] Serum or plasma creatinine m easurement (mass/volume)Ordered By: Timmy Floyd on 12-03-2023 Creatinine [Mass/Vol] 1.19 mg/dL 0.70-1.30 [facility] Comment on above: The validity of the calculated GFR & GFRAA in patients over 70 years has not been determined. Clinical correlation is essential. Serum or plasma urea nitroge n measurement (mass/volume)Ordered By: Timmy Floyd on 12-03-2023 Urea nitrogen [Mass/Vol] 42 mg/dL 7-18 [facility] Thin prep Papanicolaou smear with manual screeningOrdered By: Timmy Floyd on 12-03-2023 Thin prep Papanicolaou smear with manual screening 3.8 g/dL 3.2-5.0 [facility] Thin prep Papanicolaou smear with manual screening 17 U/L 15-37 [facility] Thin prep Papanicolaou smear with manual screening 5 5-15 [facility] Thin prep Papanicolaou smear with manual screening 17.9 mg/L NO RANGE EST. [facility] Urine creatinine measurement (mass/volume)Ordered By: Timmy Floyd on 12-03-2023 Creatinine (U) [Mass/Vol] 106.00 mg/dL NO RANGE EST. [facility] Laboratory - Hematology and Cell countson 08-28-2023 HbA1c (Bld) [Mass fraction] 9.4 % 4.2-6.3 [facility] Absolute lymphocyte countOrd ered By: Timmy Floyd on 05-11-2023 Lymphocytes Auto (Unsp spec) [#/Vol] 1.71 10*3/uL 0.83-4.51 [facility] Basophil percentageOrdered B y: Timmy Floyd on 05-11-2023 Basophils/100 WBC (Bld) 0.8 % 0-[address] [facility] Bilirubin [Mass/Vol] 0.30 mg/dL 0.20-1.00 [facility] Comment on above: For patients on eltr ombopag therapy, use of Dimension [place] TBIL is not recommended. Chloride [Moles/Vol] 105 mmol/L 98-107 [facility] Cholesterol [Mass/Vol] 144 mg/dL <200 [facility] Comment on above: <200 mg/dL Desirable 200-240 mg/dL Borderline >240 mg/dL High Risk Eosinophils/100 WBC (Bld) 4.1 % 0-5 [facility] Glucose [Mass/Vol] 233 mg/dL 74-106 [facility] Comment on above: Glucose result great er than or equal to 200 mg/dLsuggests DIABETES MELLITUS per A.D.A. criteria. Neutrophils (Bld) [#/Vol] 3.8 10*3/uL 2.0-7.7 [facility] Neutrophils/100 WBC (Bld) 60.3 % 47-70 [facility] Potassium [Moles/Vol] 4.7 mmol/L 3.5-5.1 [facility] Protein [Mass/Vol] 7.9 g/dL 6.4-8.2 [facility] Sodium [Moles/Vol] 137 mmol/L 136-145 [facility] Triglyceride [Mass/Vol] 198 mg/dL <[address] [facility] Comment on above: The drugs N-Acetylcy steine and Metamizole may falsely depress this assay.Serum Triglycerides Reference Interval Normal <150 mg/dL Borderline high 150 - 199 mg/dL High 200 - 499 mg/dL Very High > or = 500 mg/dL WBC (Bld) [#/Vol] 6.4 10*3/uL 4.4-11.0 [facility] Blood erythrocytes count (nu mber/volume)Ordered By: Timmy Floyd on 05-11-2023 RBC (Bld) [#/Vol] 4.48 10*6/uL 4.6-6.2 [facility] Blood hemoglobin measurement (mass/volume)Ordered By: Timmy Floyd on 05-11-2023 Hemoglobin (Bld) [Mass/Vol] 14.1 g/dL 13.0-16.5 [facility] Blood lymphocytes/100 leukoc ytesOrdered By: Timmy Floyd on 05-11-2023 Lymphocytes/100 WBC (Bld) 26.8 % 19-41 [facility] Blood monocytes/100 leukocyt esOrdered By: Timmy Floyd on 05-11-2023 Monocytes/100 WBC (Bld) 7.4 % 0-[address] [facility] Blood platelet mean volumeOr dered By: Timmy Floyd on 05-11-2023 Platelet mean volume (Bld) [Entitic vol] 9.8 fL 6.2-12.0 [facility] Determination of erythrocyte mean corpuscular volume (MCV)Ordered By: Timmy Floyd on 05-11-2023 MCV (RBC) [Entitic vol] 96.2 fL 80-[address] [facility] Hematocrit Auto (Bld) [Volum e fraction]Ordered By: Timmy Floyd on 05-11-2023 Hematocrit (Bld) [Volume fraction] 43.1 % 40-54 [facility] Laboratory - Chemistry and C hemistry - challengeOrdered By: Timmy Floyd on 05-11-2023 ALP [Catalytic activity/Vol] 83 U/L 45-117 [facility] ALT [Catalytic activity/Vol] 35 U/L 16-61 [facility] CO2 [Moles/Vol] 25.0 mmol/L 21.0-32.0 [facility] Globulin (S) [Mass/Vol] 4.5 g/dL 2.2-4.[address] [facility] Urea nitrogen/Creatinine [Mass ratio] 26.1 mg/mg 10-20 [facility] Laboratory - Hematology and Cell countsOrdered By: Timmy Floyd on 05-11-2023 Erythrocyte distribution width (RBC) [Entitic vol] 42.7 fL 35.1-43.9 [facility] Erythrocyte distribution width (RBC) [Ratio] 12.1 % 11.6-14.6 [facility] Immature granulocytes/100 WBC (Bld) 0.600 % 0.0-0.9 [facility] Comment on above: IG% - Immature Granu locytes (promyelocytes, myelocytes and metamyelocytes) > 1% indicates that a LEFT SHIFT is Present. MCH (RBC) [Entitic mass] 31.5 pg 27.0-32.0 [facility] Nucleated RBC/100 WBC (Bld) [Ratio] 0 % 0-5 [facility] MCHC Auto (RBC) [Mass/Vol]Or dered By: Timmy Floyd on 05-11-2023 MCHC (RBC) [Mass/Vol] 32.7 g/dL 32-36 [facility] No Panel InformationOrdered By: Timmy Floyd on 05-11-2023 Urine Microalbumin/Creatinine Ratio 70.0 mg/g CRE <30 [facility] Estimated GFR (MDRD) Amer 68 mL/min >60 [facility] Comment on above: GFR Calc Estimated GFR (MDRD) Non-Af Amer 56 mL/min >60 [facility] Comment on above: Non- GFR Calc Prostate Specific Antigen Screen 1.54 ng/mL 0.00-4.00 [facility] Comment on above: This test was perfor med using the TPSA assay method for theD[facility] CenterCiviQ chemistry system. Values obtained with differentassay methods cannot be used interchangably.When changing PSA assays in the course of monitoring apatient, additional sequential testing should be carriedout to confirm baseline values. Platelets bldOrdered By: Chevy Floyd on 05-11-2023 Platelets (Bld) [#/Vol] 365 10*3/uL 150-450 [facility] Serum or plasma albumin jhon urement (mass/volume)Ordered By: Timmy Floyd on 05-11-2023 Albumin [Mass/Vol] 3.4 g/dL 3.2-5.0 [facility] Serum or plasma albumin/glob ulin mass ratioOrdered By: Timmy Floyd on 05-11-2023 Albumin/Globulin [Mass ratio] 0.8 {ratio} 0.9-2.4 [facility] Serum or plasma calcium jhon urement (mass/volume)Ordered By: Timmy Floyd on 05-11-2023 Calcium [Mass/Vol] 9.2 mg/dL 8.5-10.1 [facility] Serum or plasma cholesterol in HDL measurement (mass/volume)Ordered By: Timmy Floyd on 05-11-2023 Cholesterol in HDL [Mass/Vol] 48 mg/dL >40 [facility] Comment on above: The drugs N-Acetylcy steine and Metamizole may falsely depress this assay. Reference Range HDL <40 mg/dL Low HDL Cholesterol HDL >or= 60 mg/dL High HDL Cholesterol Serum or plasma cholesterol in VLDL measurement (mass/volume)Ordered By: Timmy Floyd on 05-11-2023 Cholesterol in VLDL [Mass/Vol] 40 mg/dL 5-40 [facility] Serum or plasma creatinine m easurement (mass/volume)Ordered By: Timmy Floyd on 05-11-2023 Creatinine [Mass/Vol] 1.34 mg/dL 0.70-1.30 [facility] Comment on above: The validity of the calculated GFR & GFRAA in patients over 70 years has not been determined. Clinical correlation is essential. Serum or plasma low density lipoprotein (LDL) cholesterol measurement (mass/volume)Ordered By: Timmy Floyd on 05-11-2023 Cholesterol in LDL [Mass/Vol] 56 mg/dL 0-130 [facility] Serum or plasma urea nitroge n measurement (mass/volume)Ordered By: Timmy Floyd on 05-11-2023 Urea nitrogen [Mass/Vol] 35 mg/dL 7-18 [facility] Thin prep Papanicolaou smear with manual screeningOrdered By: Timmy Floyd on 05-11-2023 Thin prep Papanicolaou smear with manual screening 91.7 mg/L NO RANGE EST. [facility] Thin prep Papanicolaou smear with manual screening 22 U/L 15-37 [facility] Thin prep Papanicolaou smear with manual screening 7 5-15 [facility] Urine creatinine measurement (mass/volume)Ordered By: Timmy Floyd on 05-11-2023 Creatinine (U) [Mass/Vol] 131.00 mg/dL NO RANGE EST. [facility] Whole blood hemoglobin A1c/t otal hemoglobin ratio (mass fraction)Ordered By: Timmy Floyd on 05-11-2023 HbA1c (Bld) [Mass fraction] 8.5 % 3.8-5.6 [facility] Comment on above: Normal < 5.7 % Predi abetic 5.7 - 6.4 % Diabetic >or= 6.5 % Please note range changes. Absolute lymphocyte counton 04-01-2022 Lymphocytes Auto (Unsp spec) [#/Vol] 1.94 10*3/uL 0.83-4.51 [facility] Work Phone: Basophil percentageon 2021 Basophils/100 WBC (Bld) 0.8 % 0-1 [facility] Work Phone: [phone] Bilirubin [Mass/Vol] 0.30 mg/dL 0.20-1.00 [facility] Work Phone: Comment on above: For patients on eltr ombopag therapy, use of Dimension [place] TBIL is not recommended. Chloride [Moles/Vol] 104 mmol/L 98-107 [facility] Work Phone: Eosinophils/100 WBC (Bld) 4.0 % 0-5 [facility] Work Phone: Glucose [Mass/Vol] 197 mg/dL 74-106 [facility] Work Phone: Comment on above: Fasting Glucose resu lt greater than or equal to 126 mg/dL suggests DIABETES MELLITUS per A.D.A. criteria. Neutrophils (Bld) [#/Vol] 3.3 10*3/uL 2.0-7.7 [facility] Work Phone: Neutrophils/100 WBC (Bld) 54.8 % 47-70 [facility] Work Phone: [phone] Potassium [Moles/Vol] 4.1 mmol/L 3.5-5.1 [facility] Work Phone: Protein [Mass/Vol] 7.2 g/dL 6.4-8.2 [facility] Work Phone: Sodium [Moles/Vol] 136 mmol/L 136-145 [facility] Work Phone: WBC (Bld) [#/Vol] 6.1 10*3/uL 4.4-11.0 [facility] Work Phone: Blood erythrocytes count (nu mber/volume)on 04-01-2022 RBC (Bld) [#/Vol] 4.36 10*6/uL 4.6-6.2 [facility] Work Phone: Blood hemoglobin measurement (mass/volume)on 04-01-2022 Hemoglobin (Bld) [Mass/Vol] 13.4 g/dL 13.0-16.5 [facility] Work Phone: Blood lymphocytes/100 leukoc yteson 04-01-2022 Lymphocytes/100 WBC (Bld) 32.0 % 19-41 [facility] Work Phone: Blood monocytes/100 leukocyt eson 04-01-2022 Monocytes/100 WBC (Bld) 7.7 % 0-[address] [facility] Work Phone: Blood platelet mean volumeon 04-01-2022 Platelet mean volume (Bld) [Entitic vol] 9.6 fL 6.2-12.0 [facility] Work Phone: Determination of erythrocyte mean corpuscular volume (MCV)on 04-01-2022 MCV (RBC) [Entitic vol] 92.7 fL 80-[address] [facility] Work Phone: Hematocrit Auto (Bld) [Volum e fraction]on 04-01-2022 Hematocrit (Bld) [Volume fraction] 40.4 % 40-54 [facility] Work Phone: Laboratory - Chemistry and C hemistry - challengeon 04-01-2022 ALP [Catalytic activity/Vol] 63 U/L 45-117 [facility] Work Phone: [phone] ALT [Catalytic activity/Vol] 32 U/L 16-61 [facility] Work Phone: [phone] CO2 [Moles/Vol] 24.0 mmol/L 21.0-32.0 [facility] Work Phone: [phone] Globulin (S) [Mass/Vol] 3.8 g/dL 2.2-4.[address] [facility] Work Phone: [phone] Urea nitrogen/Creatinine [Mass ratio] 18.3 mg/mg 10-20 [facility] Work Phone: [phone] Laboratory - Hematology and Cell countson 04-01-2022 Erythrocyte distribution width (RBC) [Entitic vol] 42.8 fL 35.1-43.9 [facility]: [phone] Erythrocyte distribution width (RBC) [Ratio] 12.6 % 11.6-14.6 [facility] Work Phone: [phone] Immature granulocytes/100 WBC (Bld) 0.700 % 0.0-0.9 [facility] Work Phone: [phone] Comment on above: IG% - Immature Granu locytes (promyelocytes, myelocytes and metamyelocytes) > 1% indicates that a LEFT SHIFT is Present. MCH (RBC) [Entitic mass] 30.7 pg 27.0-32.0 [facility] Work Phone: [phone] Nucleated RBC/100 WBC (Bld) [Ratio] 0 % 0-5 [facility] Work Phone: [phone] MCHC Auto (RBC) [Mass/Vol]on 04-01-2022 MCHC (RBC) [Mass/Vol] 33.2 g/dL 32-36 [facility] Work Phone: [phone] Panel Informationon 04-01 Estimated GFR (MDRD) Amer 81 mL/min >60 [facility] Work Phone: [phone] Comment on above: GFR Calc Estimated GFR (MDRD) Non-Af Amer 67 mL/min >60 [facility] Work Phone: Comment on above: Non- GFR Calc Prostate Specific Antigen Screen 1.38 ng/mL 0.00-4.00 [facility] Work Phone: Comment on above: This test was perfor med using the TPSA assay method for [employer] chemistry system. Values obtained with differentassay methods cannot be used interchangably.When changing PSA assays in the course of monitoring apatient, additional sequential testing should be carriedout to confirm baseline values. Thyroid Stimulating Hormone (TSH) 1.01 uIU/mL 0.358-3.74 [facility] Work Phone: Vitamin D 25-Hydroxy 47.2 ng/mL [facility] Work Phone: Comment on above: Vitamin D 25(OH) Sta tus Range Deficiency <20 ng/mL (50nmol/L) Insufficiency 20 - 30 ng/mL (50 - 75 nmol/L) Sufficiency 30 - 100 ng/mL (75 - 250 nmol/L) Toxicity >100 ng/mL (>250 nmol/L) Platelets bldon 04-01-2022 Platelets (Bld) [#/Vol] 319 10*3/uL 150-450 [facility] Work Phone: Serum or plasma albumin jhon urement (mass/volume)on 04-01-2022 Albumin [Mass/Vol] 3.4 g/dL 3.2-5.0 [facility] Work Phone: [phone] Serum or plasma albumin/glob ulin mass ratioon 04-01-2022 Albumin/Globulin [Mass ratio] 0.9 {ratio} 0.9-2.4 [facility] Work Phone: [phone] Serum or plasma calcium jhon urement (mass/volume)on 04-01-2022 Calcium [Mass/Vol] 8.9 mg/dL 8.5-10.1 [facility] Work Phone: [phone] Serum or plasma creatinine m easurement (mass/volume)on 04-01-2022 Creatinine [Mass/Vol] 1.15 mg/dL 0.70-1.30 [facility] Work Phone: Comment on above: The validity of the calculated GFR & GFRAA in patients over 70 years has not been determined. Clinical correlation is essential. Serum or plasma urea nitroge n measurement (mass/volume)on 04-01-2022 Urea nitrogen [Mass/Vol] 21 mg/dL 7-18 [facility] Work Phone: Thin prep Papanicolaou smear with manual screeningon 04-01-2022 Thin prep Papanicolaou smear with manual screening 17 U/L 15-37 [facility] Work Phone: Thin prep Papanicolaou smear with manual screening 8 5-15 [facility] Work Phone: Absolute lymphocyte counton 03-30-2022 Lymphocytes Auto (Unsp spec) [#/Vol] 1.27 10*3/uL 0.83-4.51 [facility] Work Phone: Basophil percentageon 2021 Basophils/100 WBC (Bld) 0.8 % 0-[address] [facility] Work Phone: Chloride [Moles/Vol] 106 mmol/L 98-107 [facility] Work Phone: Eosinophils/100 WBC (Bld) 2.7 % 0-5 [facility] Work Phone: Glucose [Mass/Vol] 238 mg/dL 74-106 [facility] Work Phone: Comment on above: Glucose result great er than or equal to 200 mg/dLsuggests DIABETES MELLITUS per A.D.A. criteria. Neutrophils (Bld) [#/Vol] 4.4 10*3/uL 2.0-7.7 [facility] Work Phone: Neutrophils/100 WBC (Bld) 67.1 % 47-70 [facility] Work Phone: Potassium [Moles/Vol] 4.4 mmol/L 3.5-5.1 [facility] Work Phone: Comment on above: Moderate Hemolysis, Result may be falsely increased. Sodium [Moles/Vol] 138 mmol/L 136-145 [facility] Work Phone: WBC (Bld) [#/Vol] 6.6 10*3/uL 4.4-11.0 [facility] Work Phone: [phone] Blood erythrocytes count (nu mber/volume)on 03-30-2022 RBC (Bld) [#/Vol] 4.19 10*6/uL 4.6-6.2 [facility]: [phone] Blood hemoglobin measurement (mass/volume)on 03-30-2022 Hemoglobin (Bld) [Mass/Vol] 13.2 g/dL 13.0-16.5 [facility] Work Phone: Blood lymphocytes/100 leukoc yteson 03-30-2022 Lymphocytes/100 WBC (Bld) 19.3 % 19-41 [facility] Work Phone: [phone] Blood monocytes/100 leukocyt eson 03-30-2022 Monocytes/100 WBC (Bld) 9.6 % 0-[address] [facility] Work Phone: Blood platelet mean volumeon 03-30-2022 Platelet mean volume (Bld) [Entitic vol] 9.3 fL 6.2-12.0 [facility] Work Phone: Determination of erythrocyte mean corpuscular volume (MCV)on 03-30-2022 MCV (RBC) [Entitic vol] 93.3 fL 80-[address] [facility] Work Phone: [phone] Hematocrit Auto (Bld) [Volum e fraction]on 03-30-2022 Hematocrit (Bld) [Volume fraction] 39.1 % 40-54 [facility] Work Phone: [phone] Laboratory - Chemistry and C hemistry - challengeon 03-30-2022 CO2 [Moles/Vol] 25.0 mmol/L 21.0-32.0 [facility] Work Phone: Urea nitrogen/Creatinine [Mass ratio] 21.7 mg/mg 10-20 [facility] Work Phone: [phone] Laboratory - Hematology and Cell countson 03-30-2022 Erythrocyte distribution width (RBC) [Entitic vol] 42.5 fL 35.1-43.9 [facility] Work Phone: [phone] Erythrocyte distribution width (RBC) [Ratio] 12.4 % 11.6-14.6 [facility] Work Phone: [phone] Immature granulocytes/100 WBC (Bld) 0.500 % 0.0-0.9 [facility] Work Phone: [phone] Comment on above: IG% - Immature Granu locytes (promyelocytes, myelocytes and metamyelocytes) > 1% indicates that a LEFT SHIFT is Present. MCH (RBC) [Entitic mass] 31.5 pg 27.0-32.0 [facility] Work Phone: [phone] Nucleated RBC/100 WBC (Bld) [Ratio] 0 % 0-5 [facility] Work Phone: [phone] MCHC Auto (RBC) [Mass/Vol]on 03-30-2022 MCHC (RBC) [Mass/Vol] 33.8 g/dL 32-36 [facility] Work Phone: [phone] Panel Informationon 03-30 Troponin I High Sensitivity 5 pg/mL 3.0-78.0 [facility] Work Phone: [phone] Comment on above: Please Note: New Angela t Units and Gender Specific Reference Ranges. For more information see Policy Stat Procedure [place] High Sensitivity Troponin (TNIH) and attachments. Estimated Creatinine Clearance Calc 48.75 ml/min [facility] Work Phone: [phone] Estimated GFR (MDRD) Amer 63 mL/min >60 [facility] Work Phone: [phone] Comment on above: GFR Calc Estimated GFR (MDRD) Non-Af Amer 52 mL/min >60 [facility] Work Phone: [phone] Comment on above: Non- GFR Calc Platelets bldon 03-30-2022 Platelets (Bld) [#/Vol] 300 10*3/uL 150-450 [facility] Work Phone: Serum or plasma calcium jhon urement (mass/volume)on 03-30-2022 Calcium [Mass/Vol] 9.1 mg/dL 8.5-10.1 [facility] Work Phone: Serum or plasma creatinine m easurement (mass/volume)on 03-30-2022 Creatinine [Mass/Vol] 1.43 mg/dL 0.70-1.30 [facility] Work Phone: Comment on above: The validity of the calculated GFR & GFRAA in patients over 70 years has not been determined. Clinical correlation is essential. Serum or plasma urea nitroge n measurement (mass/volume)on 03-30-2022 Urea nitrogen [Mass/Vol] 31 mg/dL 7-18 [facility] Work Phone: Thin prep Papanicolaou smear with manual screeningon 03-30-2022 Thin prep Papanicolaou smear with manual screening 7 5-15 [facility] Work Phone: Glucose Glucometer (BldC) [M ass/Vol]on 02-26-2022 Glucose [Mass/Vol] 112 mg/dL 74-106 [facility] Work Phone: Comment on above: MANAGEMENT OF PATIEN T CARE PER NURSING PROTOCOL Basophil percentageon 2021 Chloride [Moles/Vol] 103 mmol/L 98-107 [facility] Work Phone: Glucose [Mass/Vol] 140 mg/dL 74-106 [facility] Work Phone: Comment on above: Fasting Glucose resu lt greater than or equal to 126 mg/dL suggests DIABETES MELLITUS per A.D.A. criteria. Potassium [Moles/Vol] 4.6 mmol/L 3.5-5.1 [facility] Work Phone: Sodium [Moles/Vol] 136 mmol/L 136-145 [facility] Work Phone: Laboratory - Chemistry and C hemistry - challengeon 01-20-2022 CO2 [Moles/Vol] 30.0 mmol/L 21.0-32.0 [facility] Work Phone: Urea nitrogen/Creatinine [Mass ratio] 27.4 mg/mg 10-20 [facility] Work Phone: No Panel Informationon 01-20 Estimated GFR (MDRD) Amer 62 mL/min >60 [facility] Work Phone: Comment on above: GFR Calc Estimated GFR (MDRD) Non-Af Amer 51 mL/min >60 [facility] Work Phone: Comment on above: Non- GFR Calc Serum or plasma calcium jhon urement (mass/volume)on 01-20-2022 Calcium [Mass/Vol] 9.6 mg/dL 8.5-10.1 [facility] Work Phone: Serum or plasma creatinine m easurement (mass/volume)on 01-20-2022 Creatinine [Mass/Vol] 1.46 mg/dL 0.70-1.30 [facility] Work Phone: Comment on above: The validity of the calculated GFR & GFRAA in patients over 70 years has not been determined. Clinical correlation is essential. Serum or plasma urea nitroge n measurement (mass/volume)on 01-20-2022 Urea nitrogen [Mass/Vol] 40 mg/dL 7-18 [facility] Work Phone: Thin prep Papanicolaou smear with manual screeningon 01-20-2022 Thin prep Papanicolaou smear with manual screening 3 5-15 [facility] Work Phone: Absolute lymphocyte counton 01-02-2022 Lymphocytes Auto (Unsp spec) [#/Vol] 2.23 10*3/uL 0.83-4.51 [facility] Work Phone: Basophil percentageon 2021 Basophils/100 WBC (Bld) 0.4 % 0-[address] [facility] Work Phone: Chloride [Moles/Vol] 105 mmol/L 98-107 [facility] Work [facility]: Eosinophils/100 WBC (Bld) 1.8 % 0-5 [facility] Work Phone: Glucose [Mass/Vol] 185 mg/dL 74-106 [facility] Work Phone: Comment on above: Fasting Glucose resu lt greater than or equal to 126 mg/dL suggests DIABETES MELLITUS per A.D.A. criteria. Neutrophils (Bld) [#/Vol] 4.3 10*3/uL 2.0-7.7 [facility] Work Phone: Neutrophils/100 WBC (Bld) 58.6 % 47-70 [facility] Work Phone: Potassium [Moles/Vol] 4.3 mmol/L 3.5-5.1 [facility] Work Phone: [phone] Sodium [Moles/Vol] 137 mmol/L 136-145 [facility] Work Phone: [phone] WBC (Bld) [#/Vol] 7.3 10*3/uL 4.4-11.0 [facility] Work Phone: Blood erythrocytes count (nu mber/volume)on 01-02-2022 RBC (Bld) [#/Vol] 4.28 10*6/uL 4.6-6.2 [facility] Work Phone: Blood hemoglobin measurement (mass/volume)on 01-02-2022 Hemoglobin (Bld) [Mass/Vol] 13.7 g/dL 13.0-16.5 [facility] Work Phone: Blood lymphocytes/100 leukoc yteson 01-02-2022 Lymphocytes/100 WBC (Bld) 30.5 % 19-41 [facility] Work Phone: Blood monocytes/100 leukocyt eson 01-02-2022 Monocytes/100 WBC (Bld) 8.4 % 0-[address] [facility] Work Phone: Blood platelet mean volumeon 01-02-2022 Platelet mean volume (Bld) [Entitic vol] 9.3 fL 6.2-12.0 [facility] Work Phone: [phone] Determination of erythrocyte mean corpuscular volume (MCV)on 01-02-2022 MCV (RBC) [Entitic vol] 93.5 fL 80-[address] [facility] Work Phone: [phone] Hematocrit Auto (Bld) [Volum e fraction]on 01-02-2022 Hematocrit (Bld) [Volume fraction] 40.0 % 40-54 [facility] Work Phone: [phone] INR in Blood by Coagulation assayon 01-02-2022 INR Coag (Bld) [Relative time] 1.1 {INR} [facility] Work Phone: [phone] Laboratory - Chemistry and C hemistry - challengeon 01-02-2022 CO2 [Moles/Vol] 26.0 mmol/L 21.0-32.0 [facility] Work Phone: [phone] Urea nitrogen/Creatinine [Mass ratio] 27.6 mg/mg 10-20 [facility] Work Phone: [phone] Laboratory - Coagulationon 0 01-02-2022 aPTT Coag (Bld) [Time] 27.1 s 24.1-36.2 [facility] Work Phone: [phone] PT Coag (PPP) [Time] 13.1 s 11.7-14.[address] [facility] Work Phone: [phone] Laboratory - Hematology and Cell countson 01-02-2022 Erythrocyte distribution width (RBC) [Entitic vol] 42.8 fL 35.1-43.9 [facility] Work Phone: [phone] Erythrocyte distribution width (RBC) [Ratio] 12.4 % 11.6-14.6 [facility] Work Phone: [phone] Immature granulocytes/100 WBC (Bld) 0.300 % 0.0-0.9 [facility] Work Phone: [phone] Comment on above: IG% - Immature Granu locytes (promyelocytes, myelocytes and metamyelocytes) > 1% indicates that a LEFT SHIFT is Present. MCH (RBC) [Entitic mass] 32.0 pg 27.0-32.0 [facility] Work Phone: Nucleated RBC/100 WBC (Bld) [Ratio] 0 % 0-5 [facility] Work Phone: MCHC Auto (RBC) [Mass/Vol]on 01-02-2022 MCHC (RBC) [Mass/Vol] 34.3 g/dL 32-36 [facility] Work Phone: No Panel Informationon 01-02 Estimated GFR (MDRD) Amer 80 mL/min >60 [facility] Work Phone: Comment on above: GFR Calc Estimated GFR (MDRD) Non-Af Amer 66 mL/min >60 [facility] Work Phone: Comment on above: Non- GFR Calc Platelets bldon 01-02-2022 Platelets (Bld) [#/Vol] 330 10*3/uL 150-450 [facility] Work Phone: Serum or plasma calcium jhon urement (mass/volume)on 01-02-2022 Calcium [Mass/Vol] 9.3 mg/dL 8.5-10.1 [facility] Work Phone: Serum or plasma creatinine m easurement (mass/volume)on 01-02-2022 Creatinine [Mass/Vol] 1.16 mg/dL 0.70-1.30 [facility] Work Phone: Comment on above: The validity of the calculated GFR & GFRAA in patients over 70 years has not been determined. Clinical correlation is essential. Serum or plasma urea nitroge n measurement (mass/volume)on 01-02-2022 Urea nitrogen [Mass/Vol] 32 mg/dL 7-18 [facility] Work Phone: Thin prep Papanicolaou smear with manual screeningon 01-02-2022 Thin prep Papanicolaou smear with manual screening 6 5-15 [facility] Work Phone: Absolute lymphocyte counton 10-02-2021 Lymphocytes Auto (Unsp spec) [#/Vol] 1.16 10*3/uL 0.83-4.51 [facility] Work Phone: Basophil percentageon 2020 Chloride [Moles/Vol] 100 mmol/L 98-107 [facility] Work Phone: Eosinophils/100 WBC (Bld) 1.2 % 0-5 [facility] Work Phone: Glucose [Mass/Vol] 223 mg/dL 74-106 [facility] Work Phone: Comment on above: Glucose result great er than or equal to 200 mg/dLsuggests DIABETES MELLITUS per A.D.A. criteria.Please note revised GLUCOSE reference range effective 2017. Neutrophils (Bld) [#/Vol] 6.9 10*3/uL 2.0-7.7 [facility] Work Phone: Potassium [Moles/Vol] 4.3 mmol/L 3.5-5.1 [facility] Work Phone: Sodium [Moles/Vol] 137 mmol/L 136-145 [facility] Work Phone: WBC (Bld) [#/Vol] 9.0 10*3/uL 4.4-11.0 [facility] Work Phone: Blood erythrocytes count (nu mber/volume)on 10-02-2021 RBC (Bld) [#/Vol] 4.49 10*6/uL 4.6-6.2 [facility] Work Phone: Blood hemoglobin measurement (mass/volume)on 10-02-2021 Hemoglobin (Bld) [Mass/Vol] 14.2 g/dL 13.0-16.5 [facility] Work Phone: Blood lymphocytes/100 leukoc yteson 10-02-2021 Lymphocytes/100 WBC (Bld) 12.9 % 19-41 [facility] Work Phone: Blood monocytes/100 leukocyt eson 10-02-2021 Monocytes/100 WBC (Bld) 9.2 % 0-[address] [facility] Work Phone: Blood platelet mean volumeon 12-22-2021 Platelet mean volume (Bld) [Entitic vol] 8.9 fL 6.2-12.0 [facility] Work Phone: [phone] Determination of erythrocyte mean corpuscular volume (MCV)on 10-02-2021 MCV (RBC) [Entitic vol] 93.3 fL 80-[address] [facility] Work Phone: [phone] Hematocrit Auto (Bld) [Volum e fraction]on 10-02-2021 Hematocrit (Bld) [Volume fraction] 41.9 % 40-54 [facility] Work Phone: [phone] Laboratory - Chemistry and C hemistry - challengeon 10-02-2021 CO2 [Moles/Vol] 26.0 mmol/L 21.0-32.0 [facility] Work Phone: [phone] Urea nitrogen/Creatinine [Mass ratio] 25.2 mg/mg 10-20 [facility] Work Phone: [phone] Laboratory - Hematology and Cell countson 10-02-2021 Basophils/100 WBC (Unsp spec) 0.3 % 0-1 [facility] Work Phone: [phone] Erythrocyte distribution width (RBC) [Entitic vol] 44.9 fL 35.1-43.9 [facility] Work Phone: [phone] Erythrocyte distribution width (RBC) [Ratio] 13.2 % 11.6-14.6 [facility] Work Phone: [phone] Immature granulocytes/100 WBC (Bld) 0.300 % 0.0-0.9 [facility] Work Phone: [phone] Comment on above: IG% - Immature Granu locytes (promyelocytes, myelocytes and metamyelocytes) > 1% indicates that a LEFT SHIFT is Present. MCH (RBC) [Entitic mass] 31.6 pg 27.0-32.0 [facility] Work Phone: Neutrophils/100 WBC (Bld) 76.1 % 47-70 [facility] Work Phone: [phone] Nucleated RBC/100 WBC (Bld) [Ratio] 0 % 0-5 [facility] Work Phone: MCHC Auto (RBC) [Mass/Vol]on 10-02-2021 MCHC (RBC) [Mass/Vol] 33.9 g/dL 32-36 [facility] Work Phone: No Panel Informationon 10-02 Troponin I High Sensitivity 7 pg/mL 3.0-78.0 [facility] Work Phone: Comment on above: Please Note: New Angela t Units and Gender Specific Reference Ranges. For more information see Policy Stat Procedure [place] High Sensitivity Troponin (TNIH) and attachments. SARS-CoV-2 Antigen (Rapid) [facility] Work Phone: Estimated Creatinine Clearance Calc 52.37 ml/min [facility] Work Phone: Estimated GFR (MDRD) Amer 67 mL/min >60 [facility] Work Phone: Comment on above: GFR Calc Estimated GFR (MDRD) Non-Af Amer 56 mL/min >60 [facility] Work Phone: Comment on above: Non- GFR Calc Platelets bldon 10-02-2021 Platelets (Bld) [#/Vol] 387 10*3/uL 150-450 [facility] Work Phone: Serum or plasma calcium jhon urement (mass/volume)on 10-02-2021 Calcium [Mass/Vol] 9.3 mg/dL 8.5-10.1 [facility] Work Phone: [phone] Serum or plasma creatinine m easurement (mass/volume)on 10-02-2021 Creatinine [Mass/Vol] 1.35 mg/dL 0.70-1.30 [facility] Work Phone: Comment on above: The validity of the calculated GFR & GFRAA in patients over 70 years has not been determined. Clinical correlation is essential. Serum or plasma urea nitroge n measurement (mass/volume)on 10-02-2021 Urea nitrogen [Mass/Vol] 34 mg/dL 7-18 [facility] Work Phone: Thin prep Papanicolaou smear with manual screeningon 10-02-2021 Thin prep Papanicolaou smear with manual screening 11 5-15 [facility] Work Phone: Absolute lymphocyte counton 09-23-2021 Lymphocytes Auto (Unsp spec) [#/Vol] 2.42 10*3/uL 0.83-4.51 [facility] Work Phone: Basophil percentageon 2020 Bilirubin [Mass/Vol] 0.30 mg/dL 0.20-1.00 [facility] Work Phone: Comment on above: For patients on eltr ombopag therapy, use of Dimension [place] TBIL is not recommended. Chloride [Moles/Vol] 105 mmol/L 98-107 [facility] Work Phone: Eosinophils/100 WBC (Bld) 1.1 % 0-5 [facility] Work Phone: Glucose [Mass/Vol] 156 mg/dL 74-106 [facility] Work Phone: Comment on above: Fasting Glucose resu lt greater than or equal to 126 mg/dL suggests DIABETES MELLITUS per A.D.A. criteria.Please note revised GLUCOSE reference range effective 2017. Neutrophils (Bld) [#/Vol] 5.9 10*3/uL 2.0-7.7 [facility] Work Phone: Potassium [Moles/Vol] 4.6 mmol/L 3.5-5.1 [facility] Work Phone: Protein [Mass/Vol] 8.0 g/dL 6.4-8.2 [facility] Work Phone: Sodium [Moles/Vol] 137 mmol/L 136-145 [facility] Work Phone: WBC (Bld) [#/Vol] 9.2 10*3/uL 4.4-11.0 [facility] Work Phone: Blood erythrocytes count (nu mber/volume)on 09-23-2021 RBC (Bld) [#/Vol] 4.51 10*6/uL 4.6-6.2 [facility]: Blood hemoglobin measurement (mass/volume)on 09-23-2021 Hemoglobin (Bld) [Mass/Vol] 14.3 g/dL 13.0-16.5 [facility] Work Phone: Blood lymphocytes/100 leukoc yteson 09-23-2021 Lymphocytes/100 WBC (Bld) 26.2 % 19-41 [facility] Work Phone: Blood monocytes/100 leukocyt eson 09-23-2021 Monocytes/100 WBC (Bld) 7.9 % 0-[address] [facility] Work Phone: Blood platelet mean volumeon 09-23-2021 Platelet mean volume (Bld) [Entitic vol] 9.3 fL 6.2-12.0 [facility] Work Phone: Determination of erythrocyte mean corpuscular volume (MCV)on 09-23-2021 MCV (RBC) [Entitic vol] 93.8 fL 80-[address] [facility] Work Phone: Hematocrit Auto (Bld) [Volum e fraction]on 09-23-2021 Hematocrit (Bld) [Volume fraction] 42.3 % 40-54 [facility] Work Phone: Laboratory - Chemistry and C hemistry - challengeon 09-23-2021 ALP [Catalytic activity/Vol] 80 U/L 45-117 [facility] Work Phone: ALT [Catalytic activity/Vol] 41 U/L 16-61 [facility] Work Phone: [phone] CO2 [Moles/Vol] 24.0 mmol/L 21.0-32.0 [facility] Work Phone: Globulin (S) [Mass/Vol] 4.6 g/dL 2.2-4.[address] [facility] Work Phone: Urea nitrogen/Creatinine [Mass ratio] 27.4 mg/mg 10-20 [facility] Work Phone: Laboratory - Hematology and Cell countson 09-23-2021 Basophils/100 WBC (Unsp spec) 0.4 % 0-1 [facility] Work Phone: [phone] Erythrocyte distribution width (RBC) [Entitic vol] 44.0 fL 35.1-43.9 [facility] Work Phone: [phone] Erythrocyte distribution width (RBC) [Ratio] 12.9 % 11.6-14.6 [facility] Work Phone: [phone] Immature granulocytes/100 WBC (Bld) 0.700 % 0.0-0.9 [facility] Work Phone: [phone] Comment on above: IG% - Immature Granu locytes (promyelocytes, myelocytes and metamyelocytes) > 1% indicates that a LEFT SHIFT is Present. MCH (RBC) [Entitic mass] 31.7 pg 27.0-32.0 [facility] Work Phone: Neutrophils/100 WBC (Bld) 63.7 % 47-70 [facility] Work Phone: Nucleated RBC/100 WBC (Bld) [Ratio] 0 % 0-5 [facility] Work Phone: MCHC Auto (RBC) [Mass/Vol]on 09-23-2021 MCHC (RBC) [Mass/Vol] 33.8 g/dL 32-36 [facility] Work Phone: No Panel Informationon 09-23 Estimated GFR (MDRD) Amer 80 mL/min >60 [facility] Work Phone: Comment on above: GFR Calc Estimated GFR (MDRD) Non-Af Amer 66 mL/min >60 [facility] Work Phone: [phone] Comment on above: Non- GFR Calc Thyroid Stimulating Hormone (TSH) 1.08 uIU/mL 0.358-3.74 [facility] Work Phone: [phone] Vitamin D 25-Hydroxy 34.2 ng/mL [facility] Work Phone: Comment on above: Vitamin D 25(OH) Sta tus Range Deficiency <20 ng/mL (50nmol/L) Insufficiency 20 - 30 ng/mL (50 - 75 nmol/L) Sufficiency 30 - 100 ng/mL (75 - 250 nmol/L) Toxicity >100 ng/mL (>250 nmol/L) Platelets bldon 09-23-2021 Platelets (Bld) [#/Vol] 398 10*3/uL 150-450 [facility] Work Phone: Serum or plasma albumin jhon urement (mass/volume)on 09-23-2021 Albumin [Mass/Vol] 3.4 g/dL 3.2-5.0 [facility] Work Phone: Serum or plasma albumin/glob ulin mass ratioon 09-23-2021 Albumin/Globulin [Mass ratio] 0.7 {ratio} 0.9-2.4 [facility] Work Phone: Serum or plasma calcium jhon urement (mass/volume)on 09-23-2021 Calcium [Mass/Vol] 9.7 mg/dL 8.5-10.1 [facility] Work Phone: Serum or plasma creatinine m easurement (mass/volume)on 09-23-2021 Creatinine [Mass/Vol] 1.17 mg/dL 0.70-1.30 [facility] Work Phone: Comment on above: The validity of the calculated GFR & GFRAA in patients over 70 years has not been determined. Clinical correlation is essential. Serum or plasma urea nitroge n measurement (mass/volume)on 09-23-2021 Urea nitrogen [Mass/Vol] 32 mg/dL 7-18 [facility] Work Phone: Thin prep Papanicolaou smear with manual screeningon 09-23-2021 Thin prep Papanicolaou smear with manual screening 19 U/L 15-37 [facility] Work Phone: [phone] Thin prep Papanicolaou smear with manual screening 8 5-15 [facility] Work Phone: [phone] Vital Signs Date Time Vital Sign Value Performing Clinician Faci lity 04-27-2025 15:01-0400 Body height 175.[address] Timmy Floyd MD Work Phone: [facility] 04-27-2025 15:01-0400 Body mass index (BMI) [Ratio] 28 kg/m2 Dr. Timmy Floyd MD Work Phone: [facility] 04-27-2025 15:01-0400 Body temperature 97.7 [degF] Dr. Timmy Floyd MD Work Phone: [facility] 04-27-2025 15:01-0400 Body weight 86.[address] Timmy Floyd MD Work Phone: [facility] 04-27-2025 15:01-0400 Diastolic blood pressure 58 mm[Hg] Dr. Timmy Floyd MD Work Phone: [facility] 04-27-2025 15:01-0400 Heart rate 77 /min Dr. Timmy Floyd MD Work Phone: [facility] 04-27-2025 15:01-0400 Respiratory rate 16 /min Dr. Timmy Floyd MD Work Phone: [facility] 04-27-2025 15:01-0400 SaO2% (BldA) [Mass fraction] 93 % Dr. Timmy Floyd MD Work Phone: [facility] 04-27-2025 15:01-0400 Systolic blood pressure 104 mm[Hg] Dr. Timmy Floyd MD Work Phone: [facility] 04-24-2025 10:04-0400 Body height 175.[address] Timmy Floyd MD Work Phone: [facility] 04-24-2025 10:04-0400 Body mass index (BMI) [Ratio] 27.8 kg/m2 Dr. Timmy Floyd MD Work Phone: [facility] 04-24-2025 10:04-0400 Body temperature 98.2 [degF] Dr. Timmy Floyd MD Work Phone: [facility] 04-24-2025 10:04-0400 Body weight 85.[address] Timmy Floyd MD Work Phone: [facility] 04-24-2025 10:04-0400 Diastolic blood pressure 69 mm[Hg] Dr. Timmy Floyd MD Work Phone: [facility] 04-24-2025 10:04-0400 Heart rate 69 /min Dr. Timmy Floyd MD Work Phone: [facility] 04-24-2025 10:04-0400 Respiratory rate 16 /min Dr. Timmy Floyd MD Work Phone: [facility] 04-24-2025 10:04-0400 SaO2% (BldA) [Mass fraction] 96 % Dr. Timmy Floyd MD Work Phone: [facility] 04-24-2025 10:04-0400 Systolic blood pressure 115 mm[Hg] Dr. Timmy Floyd MD Work Phone: [facility] 03-27-2025 11:45-0400 Body height 175.[address] Timmy Floyd MD Work Phone: [facility] 03-27-2025 11:45-0400 Body mass index (BMI) [Ratio] 28.2 kg/m2 Dr. Timmy Floyd MD Work Phone: [facility] 03-27-2025 11:45-0400 Body temperature 98.9 [degF] Dr. Timmy Floyd MD Work Phone: [facility] 03-27-2025 11:45-0400 Body weight 86.[address] Timmy Floyd MD Work Phone: [facility] 03-27-2025 11:45-0400 Diastolic blood pressure 71 mm[Hg] Dr. Timmy Floyd MD Work Phone: [facility] 03-27-2025 11:45-0400 Heart rate 90 /min Dr. Timmy Floyd MD Work Phone: [facility] 03-27-2025 11:45-0400 Respiratory rate 18 /min Dr. Timmy Floyd MD Work Phone: [facility] 03-27-2025 11:45-0400 SaO2% (BldA) [Mass fraction] 94 % Dr. Timmy Floyd MD Work Phone: [facility] 03-27-2025 11:45-0400 Systolic blood pressure 115 mm[Hg] Dr. Timmy Floyd MD Work Phone: [facility] 03-13-2025 13:43-0400 Body height 175.[address] Timmy Floyd MD Work Phone: [facility] 03-13-2025 13:43-0400 Body mass index (BMI) [Ratio] 28.2 kg/m2 Dr. Timmy Floyd MD Work Phone: [facility] 03-13-2025 13:43-0400 Body temperature 97.6 [degF] Dr. Timmy Floyd MD Work Phone: [facility] 03-13-2025 13:43-0400 Body weight 86.[address] Timmy Floyd MD Work Phone: [facility] 03-13-2025 13:43-0400 Diastolic blood pressure 66 mm[Hg] Dr. Timmy Floyd MD Work Phone: [facility] 03-13-2025 13:43-0400 Heart rate 86 /min Dr. Timmy Floyd MD Work Phone: [facility] 03-13-2025 13:43-0400 Respiratory rate 18 /min Dr. Timmy Floyd MD Work Phone: [facility] 03-13-2025 13:43-0400 SaO2% (BldA) [Mass fraction] 95 % Dr. Timmy Floyd MD Work Phone: [facility] 03-13-2025 13:43-0400 Systolic blood pressure 120 mm[Hg] Dr. Timmy Floyd MD Work Phone: [facility] 01-09-2025 15:05-0400 Body height 175.[address] Timmy Floyd MD Work Phone: [facility] 01-09-2025 15:05-0400 Body mass index (BMI) [Ratio] 28 kg/m2 Dr. Timmy Floyd MD Work Phone: [facility] 01-09-2025 15:05-0400 Body weight 86.[address] Timmy Floyd MD Work Phone: [facility] 01-09-2025 15:03-0400 Body temperature 98.4 [degF] Dr. Timmy Floyd MD Work Phone: [facility] 01-09-2025 15:03-0400 Diastolic blood pressure 65 mm[Hg] Dr. Timmy Floyd MD Work Phone: [facility] 01-09-2025 15:03-0400 Heart rate 95 /min Dr. Timmy Floyd MD Work Phone: [facility] 01-09-2025 15:03-0400 Respiratory rate 18 /min Dr. Timmy Floyd MD Work Phone: [facility] 01-09-2025 15:03-0400 SaO2% (BldA) [Mass fraction] 94 % Dr. Timmy Floyd MD Work Phone: [facility] 01-09-2025 15:03-0400 Systolic blood pressure 109 mm[Hg] Dr. Timmy Floyd MD Work Phone: [facility] 01-02-2025 15:17-0400 Body height 175.[address] Timmy Floyd MD Work Phone: [facility] 01-02-2025 15:17-0400 Body mass index (BMI) [Ratio] 27.7 kg/m2 Dr. Timmy Floyd MD Work Phone: [facility] 01-02-2025 15:17-0400 Body temperature 97.3 [degF] Dr. Timmy Floyd MD Work Phone: [facility] 01-02-2025 15:17-0400 Body weight 85.[address] Timmy Floyd MD Work Phone: [facility] 01-02-2025 15:17-0400 Diastolic blood pressure 60 mm[Hg] Dr. Timmy Floyd MD Work Phone: [facility] 01-02-2025 15:17-0400 Heart rate 80 /min Dr. Timmy Floyd MD Work Phone: [facility] 01-02-2025 15:17-0400 Respiratory rate 14 /min Dr. Timmy Floyd MD Work Phone: [facility] 01-02-2025 15:17-0400 SaO2% (BldA) [Mass fraction] 96 % Dr. Timmy Floyd MD Work Phone: [facility] 01-02-2025 15:17-0400 Systolic blood pressure 118 mm[Hg] Dr. Timmy Floyd MD Work Phone: [facility] 12-21-2024 15:44-0400 Body height 175.[address] Timmy Floyd MD Work Phone: [facility] 12-21-2024 15:44-0400 Body mass index (BMI) [Ratio] 28.2 kg/m2 Dr. Timmy Floyd MD Work Phone: [facility] 12-21-2024 15:44-0400 Body temperature 98 [degF] Dr. Timmy Floyd MD Work Phone: [facility] 12-21-2024 15:44-0400 Body weight 86.[address] Timmy Floyd MD Work Phone: [facility] 12-21-2024 15:44-0400 Diastolic blood pressure 78 mm[Hg] Dr. Timmy Floyd MD Work Phone: [facility] 12-21-2024 15:44-0400 Heart rate 84 /min Dr. Timmy Floyd MD Work Phone: [facility] 12-21-2024 15:44-0400 Respiratory rate 14 /min Dr. Timmy Floyd MD Work Phone: [facility] 12-21-2024 15:44-0400 SaO2% (BldA) [Mass fraction] 98 % Dr. Timmy Floyd MD Work Phone: [facility] 12-21-2024 15:44-0400 Systolic blood pressure 124 mm[Hg] Dr. Timmy Floyd MD Work Phone: [facility] 12-01-2024 13:28-0500 Body mass index (BMI) [Ratio] 29 kg/m2 Dr. Timmy Floyd MD Work Phone: [facility] 12-01-2024 13:28-0500 Body temperature 97.4 [degF] Dr. Timmy Floyd MD Work Phone: [facility] 12-01-2024 13:28-0500 Body weight 89.[address] Timmy Floyd MD Work Phone: [facility] 12-01-2024 13:28-0500 Diastolic blood pressure 78 mm[Hg] Dr. Timmy Floyd MD Work Phone: [facility] 12-01-2024 13:28-0500 Heart rate 86 /min Dr. Timmy Floyd MD Work Phone: [facility] 12-01-2024 13:28-0500 Respiratory rate 16 /min Dr. Timmy Floyd MD Work Phone: [facility] 12-01-2024 13:28-0500 SaO2% (BldA) [Mass fraction] 95 % Dr. Timmy Floyd MD Work Phone: [facility] 12-01-2024 13:28-0500 Systolic blood pressure 132 mm[Hg] Dr. Timmy Floyd MD Work Phone: [facility] 11-21-2024 15:52-0500 SaO2% (BldA) [Mass fraction] 98 % Dr. Timmy Floyd MD Work Phone: [facility] 11-21-2024 15:42-0500 Body temperature 98.2 [degF] Dr. Timmy Floyd MD Work Phone: [facility] 11-21-2024 15:42-0500 Diastolic blood pressure 78 mm[Hg] Dr. Timmy Floyd MD Work Phone: [facility] 11-21-2024 15:42-0500 Heart rate 93 /min Dr. Timmy Floyd MD Work Phone: [facility] 11-21-2024 15:42-0500 Respiratory rate 12 /min Dr. Timmy Floyd MD Work Phone: [facility] 11-21-2024 15:42-0500 Systolic blood pressure 130 mm[Hg] Dr. Timmy Floyd MD Work Phone: [facility] 11-11-2024 09:50-0500 Body mass index (BMI) [Ratio] 28.8 kg/m2 Dr. Timmy Floyd MD Work Phone: [facility] 11-11-2024 09:50-0500 Body weight 88.[address] Timmy Floyd MD Work Phone: [facility] 11-11-2024 09:50-0500 Diastolic blood pressure 74 mm[Hg] Dr. Timmy Floyd MD Work Phone: [facility] 11-11-2024 09:50-0500 Heart rate 70 /min Dr. Timmy Floyd MD Work Phone: [facility] 11-11-2024 09:50-0500 Respiratory rate 18 /min Dr. Timmy Floyd MD Work Phone: [facility] 11-11-2024 09:50-0500 SaO2% (BldA) [Mass fraction] 94 % Dr. Timmy Floyd MD Work Phone: [facility] 11-11-2024 09:50-0500 Systolic blood pressure 125 mm[Hg] Dr. Timmy Floyd MD Work Phone: [facility] 12-03-2023 14:08-0500 Body height 175.[address] iTmmy Floyd Work Phone: [facility] 12-03-2023 14:08-0500 Body mass index (BMI) [Ratio] 28 kg/m2 Dr. Timmy Floyd Work Phone: [facility] 12-03-2023 14:08-0500 Body temperature 97.2 [degF] Dr. Timmy Floyd Work Phone: [facility] 12-03-2023 14:08-0500 Body weight 86.[address] Timmy Floyd Work Phone: [facility] 12-03-2023 14:08-0500 Diastolic blood pressure 62 mm[Hg] Dr. Timmy Floyd Work Phone: [facility] 12-03-2023 14:08-0500 Heart rate 61 /min Dr. Timmy Folyd Work Phone: [facility] 12-03-2023 14:08-0500 Respiratory rate 16 /min Dr. Timmy Floyd Work Phone: [facility] 12-03-2023 14:08-0500 SaO2% (BldA) [Mass fraction] 95 % Dr. Timmy Floyd Work Phone: [facility] 12-03-2023 14:08-0500 Systolic blood pressure 120 mm[Hg] Dr. Timmy Floyd Work Phone: [facility] 08-28-2023 10:16-0500 Body mass index (BMI) [Ratio] 30.7 kg/m2 Dr. Timmy Floyd Work Phone: [facility] 08-28-2023 10:16-0500 Body temperature 97 [degF] Dr. Timmy Floyd Work Phone: [facility] 08-28-2023 10:16-0500 Body weight 94.[address] Timmy Floyd Work Phone: [facility] 08-28-2023 10:16-0500 Diastolic blood pressure 76 mm[Hg] Dr. Timmy Floyd Work Phone: [facility] 08-28-2023 10:16-0500 Heart rate 83 /min Dr. Timmy Floyd Work Phone: [facility] 08-28-2023 10:16-0500 Respiratory rate 16 /min Dr. Timmy Floyd Work Phone: [facility] 08-28-2023 10:16-0500 SaO2% (BldA) [Mass fraction] 96 % Dr. Timmy Floyd Work Phone: [facility] 08-28-2023 10:16-0500 Systolic blood pressure 122 mm[Hg] Dr. Timmy Floyd Work Phone: [facility] 05-11-2023 07:51-0400 Body height 175.[address] Adam Alex Work Phone: [facility] 05-11-2023 07:51-0400 Body mass index (BMI) [Ratio] 30 kg/m2 Dr. Adam Alex Work Phone: [facility] 05-11-2023 07:51-0400 Body temperature 97.3 [degF] Dr. Adam Alex Work Phone: [facility] 05-11-2023 07:51-0400 Body weight 92.[address] Adam Alex Work Phone: [facility] 05-11-2023 07:51-0400 Diastolic blood pressure 72 mm[Hg] Dr. Adam Alex Work Phone: [facility] 05-11-2023 07:51-0400 Heart rate 75 /min Dr. Adam Alex Work Phone: [facility] 05-11-2023 07:51-0400 Respiratory rate 18 /min Dr. Adam Alex Work Phone: [facility] 05-11-2023 07:51-0400 SaO2% (BldA) [Mass fraction] 95 % Dr. Adam Alex Work Phone: [facility] 05-11-2023 07:51-0400 Systolic blood pressure 124 mm[Hg] Dr. Adam Alex Work Phone: [facility] 04-24-2023 21:33-0400 Body height 175.[address] Adam Alex Work Phone: [facility] 04-24-2023 21:33-0400 Body mass index (BMI) [Ratio] 29.5 kg/m2 Dr. Adam Alex Work Phone: [facility] 04-24-2023 21:33-0400 Body temperature 97.6 [degF] Dr. Adam Alex Work Phone: [facility] 04-24-2023 21:33-0400 Body weight 90.[address] Adam Alex Work Phone: [facility] 04-24-2023 21:33-0400 Diastolic blood pressure 86 mm[Hg] Dr. Adam Alex Work Phone: [facility] 04-24-2023 21:33-0400 Heart rate 96 /min Dr. Adam Alex Work Phone: [facility] 04-24-2023 21:33-0400 Respiratory rate 18 /min Dr. Adam Alex Work Phone: [facility] 04-24-2023 21:33-0400 SaO2% (BldA) [Mass fraction] 95 % Dr. Adam Alex Work Phone: [facility] 04-24-2023 21:33-0400 Systolic blood pressure 155 mm[Hg] Dr. Adam Alex Work Phone: [facility] 02-03-2023 06:45-0400 Body mass index (BMI) [Ratio] 30.1 kg/m2 Dr. Adam Alex Work Phone: [facility] 02-03-2023 06:45-0400 Body temperature 97.1 [degF] Dr. Adam Alex Work Phone: [facility] 02-03-2023 06:45-0400 Body weight 92.[address] Adam Alex Work Phone: [facility] 02-03-2023 06:45-0400 Diastolic blood pressure 68 mm[Hg] Dr. Adam Alex Work Phone: [facility] 02-03-2023 06:45-0400 Heart rate 77 /min Dr. Adam Alex Work Phone: [facility] 02-03-2023 06:45-0400 Respiratory rate 18 /min Dr. Adam Alex Work Phone: [facility] 02-03-2023 06:45-0400 SaO2% (BldA) [Mass fraction] 94 % Dr. Adam Alex Work Phone: [facility] 02-03-2023 06:45-0400 Systolic blood pressure 116 mm[Hg] Dr. Adam Alex Work Phone: [facility] 05-15-2022 08:15-0400 Body height 175.[address] Adam Alex Work Phone: [facility] Work Phone: 05-15-2022 08:15-0400 Body mass index (BMI) [Ratio] 28 kg/m2 Dr. Adam Alex Work Phone: [facility] Work Phone: 05-15-2022 08:15-0400 Body temperature 97.4 [degF] Dr. Adam Alex Work Phone: [facility] Work Phone: 05-15-2022 08:15-0400 Body weight 86.[address] Adam Alex Work Phone: [facility] Work Phone: 05-15-2022 08:15-0400 Diastolic blood pressure 71 mm[Hg] Dr. Adam Alex Work Phone: [facility] Work Phone: 05-15-2022 08:15-0400 Heart rate 89 /min Dr. Adam Alex Work Phone: [facility] Work Phone: 05-15-2022 08:15-0400 Respiratory rate 16 /min Dr. Adam Alex Work Phone: [facility] Work Phone: 05-15-2022 08:15-0400 SaO2% (BldA) [Mass fraction] 96 % Dr. Adam Alex Work Phone: [facility] Work Phone: 05-15-2022 08:15-0400 Systolic blood pressure 126 mm[Hg] Dr. Adam Alex Work Phone: [facility] Work Phone: 04-03-2022 10:34-0400 Body height 175.[address] Adam Alex Work Phone: [facility] Work Phone: 04-03-2022 10:34-0400 Body mass index (BMI) [Ratio] 30.4 kg/m2 Dr. Adam Alex Work Phone: [facility] Work Phone: 04-03-2022 10:34-0400 Body weight 93.[address] Adam Alex Work Phone: [facility] Work Phone: 04-03-2022 10:34-0400 Diastolic blood pressure 61 mm[Hg] Dr. Adam Alex Work Phone: [facility] Work Phone: 04-03-2022 10:34-0400 Heart rate 72 /min Dr. Adam Alex Work Phone: [facility] Work Phone: 04-03-2022 10:34-0400 Respiratory rate 16 /min Dr. Adam Alex Work Phone: [facility] Work Phone: 04-03-2022 10:34-0400 Systolic blood pressure 115 mm[Hg] Dr. Adam Alex Work Phone: [facility] Work Phone: 03-31-2022 13:46-0400 Body temperature 98.1 [degF] Dr. Adam Alex Work Phone: [facility] Work Phone: 03-31-2022 13:46-0400 Diastolic blood pressure 60 mm[Hg] Dr. Adam Alex Work Phone: [facility] Work Phone: 03-31-2022 13:46-0400 Heart rate 63 /min Dr. Adam Alex Work Phone: [facility] Work Phone: 03-31-2022 13:46-0400 Respiratory rate 18 /min Dr. Adam Alex Work Phone: [facility] Work Phone: 03-31-2022 13:46-0400 SaO2% (BldA) [Mass fraction] 98 % Dr. Adam Alex Work Phone: [facility] Work Phone: 03-31-2022 13:46-0400 Systolic blood pressure 126 mm[Hg] Dr. Adam Alex Work Phone: [facility] Work Phone: 03-31-2022 00:26-0400 Body height 175.[address] Adam Alex Work Phone: [facility] Work Phone: 03-31-2022 00:26-0400 Body mass index (BMI) [Ratio] 30.7 kg/m2 Dr. Adam Alex Work Phone: [facility] Work Phone: 03-31-2022 00:26-0400 Body weight 94.[address] Adam Alex Work Phone: [facility] Work Phone: 03-26-2022 08:05-0400 Body mass index (BMI) [Ratio] 30.1 kg/m2 Dr. Adam Alex Work Phone: [facility] Work Phone: 03-26-2022 08:05-0400 Body weight 92.[address] Adam Alex Work Phone: [facility] Work Phone: 03-26-2022 08:05-0400 Diastolic blood pressure 71 mm[Hg] Dr. Adam Alex Work Phone: [facility] Work Phone: 03-26-2022 08:05-0400 Heart rate 74 /min Dr. Adam Alex Work Phone: [facility] Work Phone: 03-26-2022 08:05-0400 SaO2% (BldA) [Mass fraction] 95 % Dr. Adam Alex Work Phone: [facility] Work Phone: 03-26-2022 08:05-0400 Systolic blood pressure 117 mm[Hg] Dr. Adam Alex Work Phone: [facility] Work Phone: 02-26-2022 07:50-0400 Body temperature 97.1 [degF] Dr. Adam Alex Work Phone: [facility] Work Phone: 02-26-2022 07:50-0400 Diastolic blood pressure 63 mm[Hg] Dr. Adam Alex Work Phone: [facility] Work Phone: 02-26-2022 07:50-0400 Heart rate 67 /min Dr. Adam Alex Work Phone: [facility] Work Phone: 02-26-2022 07:50-0400 Respiratory rate 14 /min Dr. Adam Alex Work Phone: [facility] Work Phone: 02-26-2022 07:50-0400 SaO2% (BldA) [Mass fraction] 95 % Dr. Adam Alex Work Phone: [facility] Work Phone: 02-26-2022 07:50-0400 Systolic blood pressure 100 mm[Hg] Dr. Adam Alex Work Phone: [facility] Work Phone: 02-26-2022 06:43-0400 Body height 175.[address] Adam Alex Work Phone: [facility] Work Phone: 02-26-2022 06:43-0400 Body mass index (BMI) [Ratio] 30.2 kg/m2 Dr. Adam Alex Work Phone: [facility] Work Phone: 02-26-2022 06:43-0400 Body weight 92.[address] Adam Alex Work Phone: [facility] Work Phone: 02-20-2022 14:18-0400 Body mass index (BMI) [Ratio] 30.2 kg/m2 Dr. Adam Alex Work Phone: [facility] Work Phone: 02-20-2022 14:18-0400 Body temperature 97.7 [degF] Dr. Adam Alex Work Phone: [facility] Work Phone: 02-20-2022 14:18-0400 Body weight 92.[address] Adam Alex Work Phone: [facility] Work Phone: 02-20-2022 14:18-0400 Diastolic blood pressure 74 mm[Hg] Dr. Adam Alex Work Phone: [facility] Work Phone: 02-20-2022 14:18-0400 Heart rate 77 /min Dr. Adam Alex Work Phone: [facility] Work Phone: 02-20-2022 14:18-0400 Respiratory rate 17 /min Dr. Adam Alex Work Phone: [facility] Work Phone: 02-20-2022 14:18-0400 SaO2% (BldA) [Mass fraction] 95 % Dr. Adam Alex Work Phone: [facility] Work Phone: 02-20-2022 14:18-0400 Systolic blood pressure 116 mm[Hg] Dr. Adam Alex Work Phone: [facility] Work Phone: 02-20-2022 14:18-0400 Body mass index (BMI) [Ratio] 30.2 kg/m2 Dr. Adam Alex Work Phone: [facility] Work Phone: 02-20-2022 14:18-0400 Body temperature 97.7 [degF] Dr. Adam Alex Work Phone: [facility] Work Phone: 02-20-2022 14:18-0400 Body weight 92.[address] Adam Alex Work Phone: [facility] Work Phone: 02-20-2022 14:18-0400 Diastolic blood pressure 74 mm[Hg] Dr. Adam Alex Work Phone: [facility] Work Phone: 02-20-2022 14:18-0400 Heart rate 77 /min Dr. Adam Alex Work Phone: [facility] Work Phone: 02-20-2022 14:18-0400 Respiratory rate 17 /min Dr. Adam Alex Work Phone: [facility] Work Phone: 02-20-2022 14:18-0400 SaO2% (BldA) [Mass fraction] 95 % Dr. Adam Alex Work Phone: [facility] Work Phone: 02-20-2022 14:18-0400 Systolic blood pressure 116 mm[Hg] Dr. Adam Alex Work Phone: [facility] Work Phone: 02-06-2022 13:43-0400 Body height 175.[address] Adam Alex Work Phone: [facility] Work Phone: 02-06-2022 13:43-0400 Body weight 90.[address] Adam Alex Work Phone: [facility] Work Phone: 02-06-2022 13:43-0400 Heart rate 82 /min Dr. Adam Alex Work Phone: [facility] Work Phone: 02-06-2022 13:43-0400 SaO2% (BldA) [Mass fraction] 98 % Dr. Adam Alex Work Phone: [facility] Work Phone: 01-20-2022 14:02-0400 Body mass index (BMI) [Ratio] 29.5 kg/m2 Dr. Adam Alex Work Phone: [facility] Work Phone: 01-20-2022 14:02-0400 Body temperature 98.9 [degF] Dr. Adam Alex Work Phone: [facility] Work Phone: 01-20-2022 14:02-0400 Body weight 90.[address] Adam Alex Work Phone: [facility] Work Phone: 01-20-2022 14:02-0400 Diastolic blood pressure 70 mm[Hg] Dr. Adam Alex Work Phone: [facility] Work Phone: 01-20-2022 14:02-0400 Heart rate 88 /min Dr. Adam Alex Work Phone: [facility] Work Phone: 01-20-2022 14:02-0400 Respiratory rate 17 /min Dr. Adam Alex Work Phone: [facility] Work Phone: 01-20-2022 14:02-0400 SaO2% (BldA) [Mass fraction] 95 % Dr. Adam Alex Work Phone: [facility] Work Phone: 01-20-2022 14:02-0400 Systolic blood pressure 106 mm[Hg] Dr. Adam Alxe Work Phone: [facility] Work Phone: 01-20-2022 14:02-0400 Body height 175.[address] Adam Alex Work Phone: [facility] Work Phone: 01-20-2022 14:02-0400 Body mass index (BMI) [Ratio] 29.5 kg/m2 Dr. Adam Alex Work Phone: [facility] Work Phone: 01-20-2022 14:02-0400 Body temperature 98.9 [degF] Dr. Adam Alex Work Phone: [facility] [facility] Work Phone: 01-20-2022 14:02-0400 Body weight 90.[address] Adam Alxe Work Phone: [facility] Work Phone: 01-20-2022 14:02-0400 Diastolic blood pressure 70 mm[Hg] Dr. Adam Alex Work Phone: [facility] Work Phone: 01-20-2022 14:02-0400 Heart rate 88 /min Dr. Adam Alex Work Phone: [facility] Work Phone: 01-20-2022 14:02-0400 Respiratory rate 17 /min Dr. Adam Alex Work Phone: [facility] Work Phone: 01-20-2022 14:02-0400 SaO2% (BldA) [Mass fraction] 95 % Dr. Adam Alex Work Phone: [facility] Work Phone: 01-20-2022 14:02-0400 Systolic blood pressure 106 mm[Hg] Dr. Adam Alex Work Phone: [facility] Work Phone: 01-16-2022 07:03-0400 Body height 175.[address] Adam Alex Work Phone: [facility] Work Phone: 01-16-2022 07:03-0400 Body weight 90.[address] Adam Alex Work Phone: [facility] Work Phone: 01-15-2022 08:16-0400 Body mass index (BMI) [Ratio] 29.5 kg/m2 Dr. Adam Alex Work Phone: [facility] Work Phone: 01-02-2022 11:37-0400 Body mass index (BMI) [Ratio] 29.5 kg/m2 Dr. Adam Alex Work Phone: [facility] Work Phone: 01-02-2022 11:37-0400 Body weight 90.[address] Adam Alex Work Phone: [facility] Work Phone: 01-02-2022 11:37-0400 Diastolic blood pressure 62 mm[Hg] Dr. Adam Alex Work Phone: [facility] Work Phone: 01-02-2022 11:37-0400 Heart rate 82 /min Dr. Adam Alex Work Phone: [facility] Work Phone: 01-02-2022 11:37-0400 Respiratory rate 18 /min Dr. Adam Alex Work Phone: [facility] Work Phone: 01-02-2022 11:37-0400 Systolic blood pressure 120 mm[Hg] Dr. Adam Alex Work Phone: [facility] Work Phone: 01-02-2022 11:37-0400 Body mass index (BMI) [Ratio] 29.5 kg/m2 Dr. Adam Alex Work Phone: [facility] Work Phone: 01-02-2022 11:37-0400 Body weight 90.[address] Adam Alex Work Phone: [facility] Work Phone: 01-02-2022 11:37-0400 Diastolic blood pressure 62 mm[Hg] Dr. Adam Alex Work Phone: [facility] Work Phone: 01-02-2022 11:37-0400 Heart rate 82 /min Dr. Adam Alex Work Phone: [facility] Work Phone: 01-02-2022 11:37-0400 Respiratory rate 18 /min Dr. Adam Alex Work Phone: [facility] Work Phone: 01-02-2022 11:37-0400 Systolic blood pressure 120 mm[Hg] Dr. Adam Alex Work Phone: [facility] Work Phone: 10-02-2021 18:37-0500 Diastolic blood pressure 72 mm[Hg] Dr. Adam Alex Work Phone: [facility] Work Phone: 10-02-2021 18:37-0500 Heart rate 93 /min Dr. Adam Alex Work Phone: [facility] Work Phone: 10-02-2021 18:37-0500 Respiratory rate 20 /min Dr. Adam Alex Work Phone: [facility] Work Phone: 10-02-2021 18:37-0500 SaO2% (BldA) [Mass fraction] 95 % Dr. Adam Alex Work Phone: [facility] Work Phone: 10-02-2021 18:37-0500 Systolic blood pressure 119 mm[Hg] Dr. Adam Alex Work Phone: [facility] Work Phone: 10-02-2021 13:52-0500 Body mass index (BMI) [Ratio] 29.5 kg/m2 Dr. Adam Alex Work Phone: [facility] Work Phone: 10-02-2021 13:52-0500 Body temperature 98.5 [degF] Dr. Adam Alex Work Phone: [facility] Work Phone: 10-02-2021 13:52-0500 Body weight 90.[address] Adam Alex Work Phone: [facility] Work Phone: Encounters Encounter Date Encounter Type Care Provider Facility Start: 04-27-2025 End: 04-27-[address] Timmy Floyd MD Work Phone: -[facility] Start: 04-27-2025 End: 04-27-[address] Timmy Floyd MD -[facility] Work Phone: Start: 04-27-[address] Miles Armendariz MD -[facility] Work Phone: Start: 04-24-2025 End: 04-24-[address] Miles Armendariz MD -[facility] Work Phone: Start: 04-24-2025 End: 04-24-[address] Timmy Floyd MD Work Phone: -[facility] Start: 04-21-[address] Timmy Floyd MD -Laboratory Work Phone: Start: 04-21-2025 ambulatory Timmy Orourkei ty:[facility] Start: 03-27-2025 End: 03-27-[address] Timmy Floyd MD Work Phone: [facility] Work Phone: Start: 03-27-2025 End: 03-27-[address] Miles Armendariz MD -[facility] Work Phone: Start: 03-27-2025 End: 03-27-[address] Miles Armendariz MD -[facility] Work Phone: Start: 03-27-2025 End: 03-27-[address] Timmy Floyd MD Work Phone: [facility] Work Phone: Start: 03-27-2025 End: 03-27-2025 ambulatory [facility] Facility:[facility] Start: 03-20-2025 End: 03-20-[address] Timmy Floyd MD Work Phone: [facility] Work Phone: Start: 03-20-2025 End: 03-20-[address] Miles Armendariz MD -Laboratory Work Phone: Start: 03-20-2025 End: 03-20-2025 ambulatory [facility] Facility:[facility] Start: 03-13-2025 End: 03-13-2025 Patient encounter procedure Luna CHIANGC -[facility] Work Phone: Start: 03-13-2025 End: 03-13-[address] Timmy Floyd MD Work Phone: [facility] Work Phone: Start: 02-09-2025 End: 02-09-[address] Timmy Floyd MD Work Phone: [facility] Work Phone: Start: 02-09-2025 End: 02-09-[address] Miles Armendariz MD -Radiology, [facility] Work Phone: Start: 02-09-2025 End: 02-09-2025 ambulatory Miles Armendariz Facility:[facility] Start: 01-09-2025 End: 01-09-[address] Miles Armendariz MD -[facility] [place] Work Phone: Start: 01-09-2025 End: 01-09-2025 ambulatory Robert Flores Facility:[facility] Start: 01-02-2025 End: 01-02-[address] Timmy Floyd MD -[facility] Work Phone: Start: 01-02-2025 End: 01-02-2025 ambulatory Timmy Floyd Facility:[facility] Start: 12-29-2024 End: 12-29-[address] Timmy Floyd MD Work Phone: [facility] Work Phone: Start: 12-29-2024 End: 12-29-2024 Patient encounter procedure Sean ERNST -[facility] Work Phone: Start: 12-29-2024 End: 12-29-2024 ambulatory Sean ERNST Facility:[facility] Start: 12-21-2024 End: 12-21-2024 Patient encounter procedure Sean ERNST -[facility] Work Phone: Start: 12-21-2024 End: 12-21-2024 ambulatory Timmy Floyd Facility:[facility] Start: 12-16-2024 End: 12-16-[address] Timmy Floyd MD Work Phone: [facility] Work Phone: Start: 12-16-2024 End: 12-16-2024 Patient encounter procedure Robert Flores DO -Laboratory Work Phone: Start: 12-16-2024 End: 12-16-2024 Patient encounter procedure Robert Flores DO -[facility] Work Phone: Start: 12-16-2024 End: 12-16-2024 ambulatory Robertkatey Flores Facility:[facility] Start: 12-16-2024 End: 12-16-2024 ambulatory Robertkatey Flores Facility:[facility] Start: 12-01-2024 End: 12-01-[address] Kelby Seth MD -[facility] Start: 12-01-2024 End: 12-01-2024 ambulatory Kelby Seth Facility:[facility] Start: 11-21-2024 End: 11-21-2024 Patient encounter procedure Quirino Jerez PA -[facility] Work Phone: Start: 11-21-2024 End: 11-21-2024 ambulatory Efewongbe oDnighe Facility:[facility] Start: 11-11-2024 End: 11-11-2024 Patient encounter procedure Sarita ERNST -[facility] Work Phone: Start: 11-11-2024 End: 11-11-2024 ambulatory Efewongbe Oleghe Facility:[facility] Start: 08-18-2024 ambulatory Kathleen Grande ECOLOGICAL TECHNICAL OFFICER Facili ty:[facility] Start: 08-18-2024 End: 08-18-2024 ambulatory Kathleen Grande NP Facility:[facility] Start: 08-09-2024 End: 08-09-2024 ambulatory Kathleen Grande NP Facility:[facility] Start: 07-13-2024 End: 07-13-2024 ambulatory Kelby Dorinda Facility:[facility] Start: 06-29-2024 End: 06-29-2024 ambulatory Efewongbe Olee Facility:[facility] Start: 06-28-2024 End: 06-29-2024 ambulatory Sarita ERNST Facility:[facility] Start: 06-28-2024 End: 06-28-2024 ambulatory Efewongbe Olee Facility:[facility] Start: 06-17-2024 End: 06-17-2024 ambulatory Era Mason Facility:[facility] Start: 06-10-2024 End: 06-10-2024 ambulatory Efewongbe Oleghe Facility:[facility] Start: 06-10-2024 End: 06-10-2024 ambulatory Timmy Floyd Facility:[facility] Start: 12-03-2023 End: 12-03-[address] Timmy Floyd Work Phone: [facility] Work Phone: Start: 12-03-2023 End: 12-03-[address] Timmy Floyd Work Phone: [facility]-Laboratory, [place] Start: 12-03-2023 End: 12-03-[address] Timmy Floyd Work Phone: [facility] Work Phone: Start: 11-03-2023 End: 11-03-[address] Timmy Floyd Work Phone: [facility] Gastroenter[facility] Work Phone: Start: 08-28-2023 End: 08-28-[address] Timmy Floyd Work Phone: [facility] Work Phone: Start: 05-11-[address] Adam Alex Work Phone: [facility] Start: 05-11-2023 End: 05-11-[address] Adam Alex Work Phone: [facility] Work Phone: Start: 05-11-2023 End: 05-11-2023 Encounter for general adult medical examination without abnormal findings Dr. Adam Alex Work Phone: [facility] Start: 05-11-2023 End: 05-11-[address] Adam Alex Work Phone: [facility] Work Phone: Start: 04-24-2023 End: 04-24-2023 Emergency department patient visit Dr. Adam Alex Work Phone: [facility]-Emergency Department Work Phone: Start: 02-03-2023 End: 02-03-[address] [facility] Work Phone: Start: 05-15-2022 End: 05-15-[address] [facility] Start: 04-03-2022 End: 04-03-[address] Adam Alex Work Phone: [facility] Start: 04-01-2022 End: 04-01-[address] Adam Alex Work Phone: [facility]-Laboratory, Phy Office 3rd Flr Start: 03-31-2022 Non-patient / Non-visit Dr. Adam lAex Work Phone: [facility] In[facility] Phys[facility] Start: 03-30-2022 Non-patient / Non-visit Dr. Adam Alex Work Phone: [facility] Start: 03-30-2022 End: 03-31-2022 Evaluation and management of inpatient Dr. Adam Alex [facility] Start: 03-26-2022 End: 03-26-[address] Adam Alex Work Phone: [facility] Gastro[facility] Start: 02-26-2022 Non-patient / Non-visit Dr. Adam Alex Work Phone: [facility] Start: 02-26-2022 End: 02-26-2022 Admission to same day surgery center Dr. Adam Alex Work Phone: [facility]-Endoscopy Start: 02-20-2022 End: 02-20-[address] Adam Alex [facility] Start: 02-07-2022 Non-patient / Non-visit Dr. Adam Alex Work Phone: [facility] Start: 02-06-2022 End: 02-06-[address] Adam Alex [facility] Start: 01-30-2022 Non-patient / Non-visit Dr. Adam Alex Work Phone: [facility] Start: 01-30-2022 End: 01-30-[address] Adam Alex [facility] Start: 01-24-2022 Non-patient / Non-visit Dr. Adam Alex Work Phone: [facility] Start: 01-24-2022 End: 01-24-[address] Adam Alex Work Phone: [facility]-Cardiovascular Services Start: 01-20-2022 End: 01-20-[address] Adam Alex Work Phone: [facility]-Laboratory Start: 01-16-2022 End: 01-16-2022 Admission to same day surgery center Dr. Adam Alex Work Phone: [facility]-Metal Pourer/Special Procedures Start: 01-11-2022 Non-patient / Non-visit Dr. Adam Alex Work Phone: [facility] Start: 01-10-2022 End: 01-10-[address] Adam Alex [facility] Start: 01-10-2022 Non-patient / Non-visit [facility]. [facility] Start: 01-02-2022 End: 01-02-[address] Adam Alex Work Phone: [facility]-Laboratory Start: 01-02-2022 End: 01-02-[address] Adam Alex Work Phone: [facility] Start: 12-18-2021 End: 12-18-[address] Adam Alex Work Phone: [facility] Start: 10-02-2021 End: 10-02-2021 Emergency department patient visit Dr. Adam Alex [facility] Start: 09-23-[address] Adam Alex Work Phone: [facility]-Laboratory, Phy Office 3rd Flr Start: 09-18-2021 End: 09-18-[address] Adam Alex Work Phone: [facility] Procedures Date Procedure Procedure Detail Performing Clinician Start: 04-27-20[address] elast[address] of liver Dr[address] Chevy Floyd MD Work Phone: Start: 04-21-2025 Vitamin D, 25-hydroxy measurement Dr. Nadya Floyd MD Work Phone: Comment on above: Vitamin D StatusDeficiency: <20 ng/mL (5 0nmol/L)Insufficiency: 20-30 ng/mL (50-75 nmol/L)Sufficiency: 30-100 ng/mL (75-250 nmol/L)Toxicity: >100 ng/mL (>250 nmol/L) Start: 03-27-2025 CT of soft tissues of neck with contrast Dr. Timmy Floyd MD Work Phone: Start: 03-27-2025 CT of thorax, abdomen and pelvis with contrast Dr. Timmy Floyd MD Work Phone: Start: 03-20-2025 Albumin/Globulin ratio Dr. Timmy Floyd [...] to determine out of range values.Performed at: [address] [id number] Director: Minh Maradiaga PhD, Phone: [phone] Start: 03-20-[address] Mary [...] Date Care Activity Detail Author Start: 05-15-2022 [facility] Work Phone: Start: 03-31-2022 Patient discharge [facility] Work Phone: Start: 03-31-2022 Following clinical pathway protocol [facility] Work Phone: Start: 03-31-2022 Assessment of risk of venous thromboembolism [facility] Work Phone: Start: 03-31-2022 Insertion of catheter into peripheral vein [facility] Work Phone: Start: 03-31-2022 Providing care according to standard [facility] Work Phone: Start: 03-31-2022 Provision of activity privileges [facility] Work Phone: Start: 03-31-2022 Referral to service [facility] Work Phone: Start: 03-31-2022 End: 03-31-2022 [facility] Work Phone: Start: 03-30-2022 Admission procedure [facility] Work Phone: Start: 02-26-2022 Egd insert guide wire dilator passage esophagus EGD GUIDE WIRE INSERTION [facility] Work Phone: Start: 02-26-2022 Egd transoral biopsy single/multiple EGD BIOPSY SINGLE/MULTIPLE [facility] Work Phone: Start: 02-26-2022 Patient discharge [facility] Work Phone: Start: 09-18-2021 Patient referral [facility] Work Phone: Alternaria alternata IgE Ab [Units/volume] in Serum [facility] Work Phone: Indonesian Cockroach I gE Ab [Units/volume] in Serum [facility] Work Phone: Indonesian house dust mite IgE Ab [Units/volume] in Serum [facility] Work Phone: Aspergillus fumigatus [facility] Work Phone: Basic metabolic 2008 panel with ionized calcium - Serum or Plasma [facility] Bermuda grass IgE Ab [Units/volume] in Serum [facility] Work Phone: Box elder [facility] [place] Work Phone: C reactive protein [Mass/volume] in Serum or Plasma [facility] Cat dander [facility] Work Phone: Catheterization of l eft heart [facility] Work Phone: CBC W Auto Different ial panel - Blood [facility] Cladosporium herbaru m IgE Ab [Units/volume] in Serum [facility] Work Phone: Cobalamin (Vitamin B 12) [Mass/volume] in Serum or Plasma [facility] Common Ragweed IgE A b [Units/volume] in Serum [facility] Work Phone: Complement C3 [Mass/ volume] in Serum or Plasma [facility] Complement C4 [Mass/ volume] in Serum or Plasma [facility] Complement total hem olytic CH50 [Units/volume] in Serum or Plasma [facility] Comprehensive metabo lic 2000 panel - Serum or Plasma [facility] Southold [facility] Work Phone: CT Abdomen and Pelvi s W contrast IV [facility] CT Neck W contrast IV [facility] Dog epithelium IgE A b [Units/volume] in Serum [facility] Work Phone: Erythrocyte sediment ation rate [facility] house dust mite IgE Ab [Units/volume] in Serum [facility] Work Phone: Immunoglobulin E measurement [facility] Work Phone: Immunoglobulin measurement [facility] Lactate dehydrogenas e measurement [facility] Liver stiffness by US.transient elastography [facility] Mouse urine proteins [facility] Work Phone: Patient Education [facility] Work Phone: Patient referral [facility] Work Phone: Pecan or [place] Nut IgE Ab [Units/volume] in Serum [facility] Work Phone: Rough Pigweed IgE Ab [Units/volume] in Serum [facility] Work Phone: Serum immunofixation [facility] Sheep [place] IgE Ab [Units/volume] in Serum [facility] Work Phone: Silver Birch IgE Ab [Units/volume] in Serum [facility] Work Phone: Sebastián IgE Ab [Units/volume] in Serum [facility] Work Phone: Tree pollen [facility] Work Phone: Urate [Mass/volume] in Serum or Plasma [facility] Vitamin D, 25-hydrox y measurement [facility] [place] [facility] Work Phone: White Mandeep IgE Ab [Units/volume] in Serum [facility] Work Phone: White Elm IgE Ab [Units/volume] in Serum [facility] Work Phone: White mulberry IgE A b [Units/volume] in Serum [facility] Work Phone: [facility] Immunizations Immunization Date Immunization Notes Care Provider Fa cility 10-08-2021 Covid (Moderna) Dr. Adam Alex Work Phone: [facility] 02-09-2021 Covid (Moderna) Dr. Adam Alex Work Phone: [facility] 01-10-2021 Covid (Moderna) Dr. Adam Alex Work Phone: [facility] 07-14-[address] Adam Alex Work Phone: [facility] Payers Date Payer Category Payer Self-pay [id number] 2023 Medicare [id number] 2015 Unknown [id number] Unknown [facility] [id number] Unknown [id number] [id number] Unknown [id number] 2.0.1.045007.3.579.2.462 Unknown [id number] 2.0.1.790139.3.579.2.462 Unknown [id number] 2.0.1.754392.3.579.2.462 Unknown [id number] 2..1.810387.3.579.2.462 Unknown [id number] 2.0.1.210852.3.579.2.462 Unknown [id number] 2.0.1.566357.3.579.2.462 Unknown [id number] 2.16.840.1.050240.3.579.2.462 Unknown [id number] 2.16.840.1.584408.3.579.2.462 Unknown [id number] 2.16.840.1.016641.3.579.2.462 Unknown [id number] 2.16.840.1.275290.3.579.2.462 Unknown [id number] 2.16.840.1.749531.3.579.2.462 Unknown [id number] 2.16.840.1.968364.3.579.2.462 Unknown [id number] 2.16.840.1.512474.3.579.2.462 Unknown [id number] 2.16840.1.344620.3.579.2.462 Unknown [id number] 2.840.1.473270.3.579.2.462 Unknown [id number] 2.16840.1.276013.3.579.2.462 Unknown [id number] 2.16840.1.505615.3.579.2.462 Unknown [id number] 2.16840.1.021230.3.579.2.462 Unknown [id number] 2.16840.1.227306.3.579.2.462 Unknown [id number] 2.16840.1.642665.3.579.2.462 Unknown [id number] 2.16.840.1.754868.3.579.2.462 Unknown [id number] 2.16.840.1.005996.3.579.2.462 Unknown [id number] 2.16.840.1.583183.3.579.2.462 Unknown [id number] 2.16.840.1.079274.3.579.2.462 Unknown [id number] 2.16.840.1.891397.3.579.2.462 Unknown [id number] 2.16.840.1.687727.3.579.2.462 Unknown [id number] 2.16.840.1.892850.3.579.2.462 Unknown [id number] 2.16.840.1.869867.3.579.2.462 Social History Date Type Detail Facility Start: 01-15-2022 End: 12-03-2023 Tobacco smoking status NHIS Unknown if ever smoked [facility] Start: 1950 Sex Assigned At Male [facility] Start: 12-01-2024 Tobacco smoking stat us NHIS Never smoked tobacco (finding) [facility] Start: 12-29-2024 End: 01-06-2025 Sex Male (finding) [facility] Goals Date Patient Goal Desired Activity /State Functional Status Date Assessment Result Facility 03-31-2022 Functional status Activity Abili ty Unable to Assess [facility] Work Phone: Mental Status Date Assessment Result Facility 03-31-2022 Cognitive function Voice/Name [facility] Work Phone: 02-26-2022 Cognitive function Voice/Name [facility] Work Phone: 10-02-2021 Cognitive function Level Of Cons ciousness Awake;Alert;Appropriate [facility] Work Phone: Clinical Notes 11-11-2024 to 03-27-2025 Note Date & Type Note Facility 03-27-2025 Radiology Diagnostic study note [facility] Imaging Services [address] [place] [address] CT Chest, Abd, Pel w/Contrast MR#: [id number] Acct: [id number] Name: JOSE SANDOVAL Rep #: [id number] : 1950 M 74 From: Azam Torres MD PCP: Dr. 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 Coronal and Sagittal reconstruction series were provided. One or more dose reduction techniques were used (e.g., Automated exposure control, adjustment of the mA and/or kV according to patient size, use of iterative reconstruction technique. PATIENT PREPARATION: Per protocol ORAL CONTRAST TYPE: None. CONTRAST: Isovue 370 VOLUME: 100mL RADIATION DOSE SUMMARY: CTDlvol: 17.68 mGy DLP: 1003.52 mGycm COMPARISON: None FINDINGS: CT CHEST: Hardware: None Lymph nodes: No hilar or mediastinal lymphadenopathy is seen. Heart and Vasculature: Coronary artery calcifications are noted. Lungs and Airways: No pulmonary mass is seen. Mild increased markings at the lung bases suggestive of linear scarring and/or atelectasis. Pleura: No pleural effusion. Bones: Degenerative changes of the thoracic spine. CT ABDOMEN/PELVIS: Liver: Normal size. No mass. Gallbladder: Unremarkable Spleen: Normal size. Pancreas: Diffuse fatty atrophy. Adrenals: Unremarkable Kidneys: Normal renal sizes. No hydronephrosis. Bladder: Unremarkable. Prior TURP. Bowel: Colonic diverticulosis without diverticulitis. Appendix: Unremarkable Lymph nodes: Unremarkable. Vasculature: Mild diffuse atherosclerotic calcifications are noted. Peritoneum / Retroperitoneum: No retroperitoneal lymph nodes are seen. Bones: Degenerative changes of the spine. CT/CT Chest, Abd, Pel w/Contrast IMPRESSION: No evidence of mediastinal, hilar or retroperitoneal lymphadenopathy. Reading Location: [facility] CC: Dr. Timmy Floyd MD; Dr. Miles Armendariz MD ~ Garage Mechanic: Signed [facility] 03-27-2025 Radiology Diagnostic study note [facility] Imaging Services [address] [place] [address] Soft Tissue Neck WITH Contrast MR#: [id number] Acct: [id number] Name: JOSE SANDOVAL Rep #: [id number] : 1950 74 From: Azam Torres MD PCP: Dr. Timmy Floyd MD Status: R EG CLI Study:Soft Tissue Neck WITH Contrast Date of Exam: 03/27/25 Exam# [id number] Ordering Dr: To Armendariz MD PROCEDURE: SOFT TISSUE NECK WITH CONTRAST 03/27/2025 REASON FOR EXAM: MGUS R/O LYMPHOMA TECHNIQUE: SOFT TISSUE NECK WITH CONTRAST CONTRAST: Isovue-300 VOLUME: 100 mL One or more dose reduction techniques were used (e.g., Automated exposure control, adjustment of the mA and/or kV according to patient size, use of iterative reconstruction technique). RADIATION DOSE SUMMARY: CTDlvol: 18.64 mGy DLP: 554.25 mGycm COMPARISON: None FINDINGS: Airway: Midline and patent. Salivary glands: Unremarkable. Lymph nodes: No cervical lymphadenopathy. Thyroid: Unremarkable. Vasculature: Carotid arteries and internal jugular veins are unremarkable. Orbits: Unremarkable at visualized levels. Paranasal sinuses and mastoids: Mild degree of mucosal thickening along the inferior aspect of the right maxillary sinus. Lung apices: Unremarkable Upper mediastinum: Unremarkable Bones: Multilevel degenerative changes of the spine. Facet joint osteoarthritisat multiple levels. Other: CT/Soft Tissue Neck WITH Contrast IMPRESSION: No acute abnormality is seen. Reading Location: [place] [address] CC: Dr. Timmy Floyd MD; Dr. Miles Armendariz MD ~ Garage Mechanic: Signed [facility] 02-12-2025 Radiology Diagnostic study note [facility] Imaging Services [address] [place] [id number] Bone Survey Comp(Axial&Append) MR#: [id number] Acct: [id number] Name: JOSE SANDOVAL Rep #: [id number] : 1950 M 74 From: López Strong MD PCP: Dr. Timmy Floyd MD Status: R EG CLI Study:Bone Survey Comp(Axial&Append) Date of Exam: 02/09/25 Exam# [id number] Ordering Dr: To Armendariz MD PROCEDURE: BONE [...] Comp(Axial&Append) IMPRESSION: NEGATIVE BONE SURVEY. Reading Location: [id number] CC: Dr. Timmy Floyd MD; Dr. Miles Armendariz MD ~ Garage Mechanic: Signed [facility] 01-02-2025 Evaluation note Diagnosis Onset Date Resolution Osteopenia determined by x-ray acute January 02, 2025 3:04pm Essential hypertension chronic [facility] 2024 3:04pm Mixed hyperlipidemia chronic Enrique h 2024 3:04pm Type 2 diabetes mellitus chronic January 02, 2025 3:04pm Gammopathy, monoclonal chronic [facility] 2024 2:52pm Asthma acute March 13, 2025 1:25pm Gammopathy, monoclonal chronic [facility] 2024 11:24am Gammopathy, monoclonal chronic [facility] 2024 9:53am High total IgG chronic April 24, 2025 9:53am [facility] Work Phone: 1(557) 264-646002-20-2025 Evaluation note* Diagnosis Onset Date Resolution Status Admit Date Acute bronchitis, unspecified acute December 01, 2024 1:23pm Abdominal pain acute December 16, 2024 9:56am Anemia acute December 16 9:56am GERD (gastroesophageal reflu x disease) chronic December 16, 2024 9:56am Bronchitis acute December 21 3:24pm Osteopenia determined by x-ray acute December 21, 2024 3:24pm Gammopathy, monoclonal chronic [facility] 2024 3:24pm Osteopenia determined by x-ray acute January 02, 2025 3:04pm Essential hypertension chronic [facility] 2024 3:04pm Mixed hyperlipidemia chronic Enrique h 2024 3:04pm Type 2 diabetes mellitus chronic January 02, 2025 3:04pm Gammopathy, monoclonal chronic [facility] 2024 2:52pm Asthma acute March 13, 2025 1:25pm [facility] Work Phone: 1(827) 366-261002-20-2025 Evaluation note* Diagnosis Onset Date Resolution Status Admit Date Acute bronchitis, unspecified acute December 01, 2024 1:23pm Abdominal pain acute December 16, 2024 9:56am Anemia acute December 16 9:56am GERD (gastroesophageal reflu x disease) chronic December 16, 2024 9:56am Bronchitis acute December 21 3:24pm Osteopenia determined by x-ray acute December 21, 2024 3:24pm Gammopathy, monoclonal chronic [facility] 2024 3:24pm Osteopenia determined by x-ray acute January 02, 2025 3:04pm Essential hypertension chronic [facility] 2024 3:04pm Mixed hyperlipidemia chronic Enrique h 2024 3:04pm Type 2 diabetes mellitus chronic January 02, 2025 3:04pm Gammopathy, monoclonal chronic [facility] 2024 2:52pm Asthma acute March 13, 2025 1:25pm Gammopathy, monoclonal chronic Ju al 2024 11:24am [facility] Work Phone: 1(339) 586-824802-10-2025 Evaluation note* Diagnosis Onset Date Resolution Status [...] 21, 2024 3:24pm Gammopathy, monoclonal chronic [facility] 2024 3:24pm Osteopenia determined by x-ray acute January 02, 2025 3:04pm Essential hypertension chronic [facility] 2024 3:04pm Mixed hyperlipidemia chronic Enrique h 2024 3:04pm Type 2 diabetes mellitus chronic January 02, 2025 3:04pm Gammopathy, monoclonal chronic [facility] 2024 2:52pm [facility] Work Phone: 1(363) 920-118801-31-2025 Evaluation note* Diagnosis Onset Date Resolution Status Admit Date Abnormal stress test acute [facility] 2024 9:46am Essential hypertension chronic [facility] 2024 9:46am Mixed hyperlipidemia chronic [facility] 2024 9:46am Acute bronchitis, unspecified acute November 21, 2024 3:25pm Acute bronchitis, unspecified acute December 01, 2024 1:23pm Abdominal pain acute December 16, 2024 9:56am Anemia acute December 16 9:56am GERD (gastroesophageal reflu x disease) chronic December 16, 2024 9:56am Bronchitis acute December 21 3:24pm Gammopathy, monoclonal acute [facility] 2024 3:24pm Osteopenia determined by x-ray December 21, 2024 3:24pm [facility] Work Phone: 1(706) 818-346401-31-2025 Evaluation note* Diagnosis Onset Date Resolution Status Admit Date Abnormal stress test acute [email or web address] 9:46am Essential hypertension chronic [facility] 2024 9:46am Mixed hyperlipidemia chronic [facility] 2024 9:46am Acute bronchitis, unspecified acute November 21, 2024 3:25pm Acute bronchitis, unspecified acute December 01, 2024 1:23pm Abdominal pain acute December 16, 2024 9:56am Anemia acute December 16 9:56am GERD (gastroesophageal reflu x disease) chronic December 16, 2024 9:56am Bronchitis acute December 21 3:24pm Gammopathy, monoclonal acute [facility] 2024 3:24pm Osteopenia determined by x-ray December 21, 2024 3:24pm Osteopenia determined by x-ray acute January 02, 2025 3:04pm Essential hypertension chronic [facility] 2024 3:04pm Mixed hyperlipidemia chronic [facility] 2024 3:04pm Type 2 diabetes mellitus chronic January 02, 2025 3:04pm [facility] Work Phone: 1(572) 980-110101-31-2025 Evaluation note* Diagnosis Onset Date Resolution Status Admit Date Abnormal stress test acute [email or web address] 9:46am Essential hypertension chronic [facility] 2024 9:46am Mixed hyperlipidemia chronic [facility] [...] 21, 2024 3:24pm Gammopathy, monoclonal chronic [facility] 2024 3:24pm Osteopenia determined by x-ray acute January 02, 2025 3:04pm Essential hypertension chronic [facility] 2024 3:04pm Mixed hyperlipidemia chronic [facility] 2024 3:04pm Type 2 diabetes mellitus chronic January 02, 2025 3:04pm Gammopathy, monoclonal chronic [facility] 2024 2:52pm [facility] Work Phone: Evaluation note* Diagnosis Onset Date Resolution Status Constipated acute Dizziness acute Leg cramps acute Constipated acute Dysphagia acute Segmental colitis associated with diverticulosis acute Angina pectoris acute Dizziness acute Essential hypertension acute Mixed hyperlipidemia acute Palpitations acute [facility] Work Phone: evaluation note* Diagnosis Onset Date Resolution Status Constipated acute Dysphagia acute Segmental colitis associated with diverticulosis acute Angina pectoris acute Dizziness acute Essential hypertension acute Mixed hyperlipidemia acute Palpitations acute [facility] Work Phone: Evaluation note* Diagnosis Onset Date Resolution Status Constipated acute Dysphagia acute Segmental colitis associated with diverticulosis acute Angina pectoris acute Dizziness acute Essential hypertension acute Mixed hyperlipidemia acute Palpitations acute SOB (shortness of breath) on exertion acute [facility] Work Phone: evaluation note* Diagnosis Onset Date Resolution Status Constipated acute Dysphagia acute Segmental colitis associated with diverticulosis acute Angina pectoris acute Dizziness acute Essential hypertension acute Mixed hyperlipidemia acute Palpitations acute SOB (shortness of breath) on exertion acute SOB (shortness of breath) on exertion acute [facility] Work Phone: evaluation note* Diagnosis Onset Date Resolution Status Constipated acute Dysphagia acute Segmental colitis associated with diverticulosis acute Angina pectoris acute Dizziness acute Essential hypertension acute Mixed hyperlipidemia acute Palpitations acute SOB (shortness of breath) on exertion acute SOB (shortness of breath) on exertion acute GERD (gastroesophageal reflux disease) acute Segmental colitis associated with diverticulosis acute Slow transit constipation ac [place] Chest pain acute Vertigo acute [facility] Work Phone: Evaluation note* Diagnosis Onset Date Resolution Status Constipated acute Dysphagia acute Segmental colitis associated with diverticulosis acute Angina pectoris acute Essential hypertension acute Mixed hyperlipidemia acute Palpitations chronic Dizziness resolved SOB (shortness of breath) on exertion acute SOB (shortness of breath) on exertion acute GERD (gastroesophageal reflux disease) acute Segmental colitis associated with diverticulosis acute Slow transit constipation ac [place] Chest pain resolved Vertigo resolved Angina pectoris acute Essential hypertension acute Mixed hyperlipidemia acute Palpitations chronic Dizziness resolved [facility] Work Phone: Evaluation note* Diagnosis Onset Date Resolution Status SOB (shortness of breath) on exertion acute SOB (shortness of breath) on exertion acute GERD (gastroesophageal reflux disease) acute Segmental colitis associated with diverticulosis acute Slow transit constipation ac [place] Chest pain resolved Vertigo resolved Angina pectoris acute Essential hypertension acute Mixed hyperlipidemia acute Palpitations chronic Dizziness resolved SOB (shortness of breath) on exertion acute [facility] Work Phone: Evaluation note* Diagnosis Onset Date Resolution Status Asthma acute [facility] Work Phone: Evaluation note* Diagnosis Onset Date Resolution Status Asthma acute Health care maintenance acut e Essential hypertension chron ic Type 2 diabetes mellitus chr [facility] Work Phone: Evaluation note* Diagnosis Onset Date Resolution Status Essential hypertension chron ic GERD (gastroesophageal reflux disease) chronic Mixed hyperlipidemia chronic Obesity chronic Type 2 diabetes mellitus chr onic Delayed gastric emptying acu te GERD (gastroesophageal reflux disease) chronic Slow transit constipation ch ronic Abdominal pain acute Essential hypertension chron ic Type 2 diabetes mellitus chr [facility] Work Phone[facility] Work Phone: [facility] Work Phone: Reason for referral (narrative)No reason for referral information availableWMercy Health St[facility] Work Phone: Chief Complaint and Reason [...] pain Vertigo Chief Complaint FU CP/REF. DR. 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 CARE - PPW SENT Reason for [...] 2024 9:56 am GERD (gastroesophageal reflux disease) [facility] 2024 9:56am Bronchitis December 21, 2024 3:2 [...] 2024 9:56 am GERD (gastroesophageal reflux disease) [facility] 2024 9:56am Bronchitis December 21, 2024 3:2 [...] 2024 9:56 am GERD (gastroesophageal reflux disease) [facility] 2024 9:56am Bronchitis December 21, 2024 3:2 [...] 1:25p m Chief Complaint Admit Date BRONCHITIS December 01, 2024 1:23pm XRAY December [...] 9:56 am GERD (gastroesophageal reflux disease) [facility] 2024 9:56am Bronchitis December 21, 2024 3:2 [...] Gammopathy, monoclonal March 27, 2025 1 1:24am Chief Complaint Admit Date BRONCHITIS FU December [...] LABS PRIOR March 27, 2025 11:2 4am JIM March 27, 2025 1:43 pm Chief Complaint Admit Date osteopenia December 29, 2024 7:5 1am chk up January 02, 2025 3:0 4pm ELEVATED IGG, M-SPIKE January 09, 2025 2 :52pm 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, 2025 8:41am ACUTE-DEEP COUGH March 13, 2025 1:25p m E ORDERS March 20, 2025 7:19a m 12WKS LABS PRIOR March 27, 2025 11:2 4am JIM March 27, 2025 1:43 pm E ORDERS April 21, 2025 8:53 am 4WKS NO LABS REVIEW CT April 24, 2025 9 :53am Reason for Visit Admit Date Osteopenia determined by x-ray December 3:04pm Essential hypertension January 02, 2025 3:04pm Mixed hyperlipidemia January 02, 2025 3: 04pm Type 2 diabetes mellitus January 02 3:04pm Gammopathy, monoclonal January 09, 2025 2:52pm Asthma March 13, 2025 1:25p m Gammopathy, monoclonal March 27, 2025 1 1:24am Gammopathy, monoclonal April 24, 2025 9 :53am High total IgG April 24, 2025 9:53 am Chief Complaint Admit Date osteopenia December 29, 2024 7:5 1am chk up January 02, 2025 3:0 4pm ELEVATED IGG, M-SPIKE January 09, 2025 2 :52pm 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, 2025 8:41am ACUTE-DEEP COUGH March 13, 2025 1:25p m E ORDERS March 20, 2025 7:19a m 12WKS LABS PRIOR March 27, 2025 11:2 4am JIM March 27, 2025 1:43 pm E ORDERS April 21, 2025 8:53 am 4WKS NO LABS REVIEW CT April 24, 2025 9 :53am EMGUS April 27, 2025 9:47 am 4 M FU April 27, 2025 2:56 pm Family History Relationship Condition Age at Onset Recorded Date/T kinjal grandfather Cardiac disease Unknown grandmother Cardiac disease Unknown Relationship Condition Age at Onset Recorded Date/T kinjal grandfather Cardiac disease Unknown grandmother Cardiac disease Unknown Malignant neoplasm of esophagus Unknown mother Multiple myeloma Unknown Advance Directives Advance Directive Response Recorded Date/ Time Advance Directives No January 15 8:24am Living Will No January 15, 2022 8:24am Power of Clinical Medical Transcriptionist No January 15 8:24am Advance Directive Response Recorded Date/ Time Advance Directives No January 16 7:03am Living Will No January 16, 2022 7:03am Power of Clinical Medical Transcriptionist No January 16 7:03am Advance Directive Response Recorded Date/ Time Advance Directives No January 16 7:03am Living Will No February 25, 2022 1 0:26am Power of Clinical Medical Transcriptionist No February 25, 2022 10:26am Advance Directives on File No January 16, 2022 7:03am Advance Directive Response Recorded Date/ Time Advance Directives on File No January 16, 2022 7:03am Advance Directives No January 16 7:03am Living Will Yes March 31, 2022 12:37am Power of Clinical Medical Transcriptionist No March 31 12:37am Advance Directive Response Recorded Date/ Time Advance Directives No January 16 7:03am Living Will Yes March 31, 2022 12:37am Power of Clinical Medical Transcriptionist No March 31 12:37am Advance Directive Response Recorded Date/ Time Advance Directives No January 16 7:03am Living Will No April 24, 2023 11:19pm Power of Clinical Medical Transcriptionist No April 24 11:19pm Advance Directive Response Recorded Date/ Time Advance Directives No January 16 6:03am Living Will No April 24, 2023 10:19pm Power of Clinical Medical Transcriptionist No April 24 10:19pm Advance Directive Response Recorded Date/ Time Living Will No April 24, 2023 11:19pm Do you have a Healthcare Power of Clinical Medical Transcriptionist? No April 24, 2023 11:19pm Living Will Yes July 13 11:45am Do you have a Healthcare Power of Clinical Medical Transcriptionist? Yes July 13, 2024 11:45am Advance Directives Yes November 3:15pm Advance Directive Response Recorded Date/ Time Living Will No April 24, 2023 11:19pm Do you have a Healthcare Power of Clinical Medical Transcriptionist? No April 24, 2023 11:19pm Advance Directives Yes November 3:15pm Advance Directive Response Recorded Date/ Time Advance Directives Yes November 3:15pm Summary Purpose [...] March 27, 2025 End: March 27, 2025 Team Status: Inactive Member Role Status Dates Dr. Timmy Floyd MD Primary Care Provider Active Start: March 27, 2025 End: March 27, 2025 Dr. Miles Armendariz MD Attending Provider Active S tart: March 27, 2025 End: March 27, 2025 Dr. Miles Armendariz MD Referring Provider Active S tart: March 27, 2025 End: March 27, 2025 Team Status: Active Member Role/Relationship Status Dates Dr. Timmy Floyd MD Primary Care Provider Active Team Status: Inactive Member Role/Relationship Status Dates Dr. Timmy Floyd MD Primary Care Provider Active Start: December 29, 2024 End: December 29, 2024 SUJATA Majano Attending Provider Active St art: December 29, 2024 End: December 29, 2024 SUJATA Majano Referring Provider Active St art: December 29, 2024 End: December 29, 2024 Team Status: Inactive Member Role/Relationship Status Dates Dr. Timmy Floyd MD Primary Care Provider Active Start: January 02, 2025 End: January 02, 2025 Dr. Timmy Floyd MD Attending Provider Active Start: January 02, 2025 End: January 02, 2025 Dr. Timmy Floyd MD Referring Provider Active Start: January 02, 2025 End: January 02, 2025 Team Status: Inactive Member Role/Relationship Status Dates Dr. Timmy Floyd MD Primary Care Provider Active Start: January 09, 2025 End: January 09, 2025 Dr. Miles Armendariz MD Attending Provider Active S tart: January 09, 2025 End: January 09, 2025 Dr. Robert Flores DO Referring Provider Active Start: January 09, 2025 End: January 09, 2025 Team Status: Inactive Member Role/Relationship Status Dates Dr. Timmy Floyd MD Primary Care Provider Active Start: February 09, 2025 End: February 09, 2025 Dr. Miles Armendariz MD Attending Provider Active S tart: February 09, 2025 End: February 09, 2025 Dr. Miles Armendariz MD Referring Provider Active S tart: February 09, 2025 End: February 09, 2025 Team Status: Inactive Member Role/Relationship Status Dates Dr. Timmy Floyd MD Primary Care Provider Active Start: March 13, 2025 End: March 13, 2025 Dr. Timmy Floyd MD Referring Provider Active Start: March 13, 2025 End: March 13, 2025 TYSON John Attending Provider Active Start: March 13, 2025 End: March 13, 2025 Team Status: Inactive Member Role/Relationship Status Dates Dr. Timmy Floyd MD Primary Care Provider Active Start: March 20, 2025 End: March 20, 2025 Dr. Miles Armendariz MD Attending Provider Active S tart: March 20, 2025 End: March 20, 2025 Dr. Miles Armendariz MD Referring Provider Active S tart: March 20, 2025 End: March 20, 2025 Team Status: Inactive Member Role/Relationship Status Dates Dr. Timmy Floyd MD Primary Care Provider Active Start: March 27, 2025 End: March 27, 2025 Dr. Timmy Floyd MD Referring Provider Active Start: March 27, 2025 End: March 27, 2025 Dr. Miles Armendariz MD Attending Provider Active S tart: March 27, 2025 End: March 27, 2025 Team Status: Inactive Member Role/Relationship Status Dates Dr. Timmy Floyd MD Primary Care Provider Active Start: March 27, 2025 End: March 27, 2025 Dr. Miles Armendariz MD Attending Provider Active S tart: March 27, 2025 End: March 27, 2025 Dr. Miles Armendariz MD Referring Provider Active S tart: March 27, 2025 End: March 27, 2025 Team Status: Active Member Role/Relationship Status Dates Dr. Timmy Floyd MD Primary Care Provider Active Start: April 21, 2025 Dr. Timmy Floyd MD Attending Provider Active Start: April 21, 2025 Dr. Timmy Floyd MD Referring Provider Active Start: April 21, 2025 Team Status: Inactive Member Role/Relationship Status Dates Dr. Timmy Floyd MD Primary Care Provider Active Start: April 24, 2025 End: April 24, 2025 Dr. Timmy Floyd MD Referring Provider Active Start: April 24, 2025 End: April 24, 2025 Dr. Miles Armendariz MD Attending Provider Active S tart: April 24, 2025 End: April 24, 2025 Team Status: Active Member Role/Relationship Status Dates Dr. Timmy Floyd MD Primary Care Provider Active Start: April 27, 2025 Dr. Miles Armendariz MD Attending Provider Active S tart: April 27, 2025 Dr. Miles Armendariz MD Referring Provider Active S tart: April 27, 2025 Team Status: Inactive Member Role/Relationship Status Dates Dr. Timmy Floyd MD Primary Care Provider Active Start: April 27, 2025 End: April 27, 2025 Dr. Timmy Floyd MD Attending Provider Active Start: April 27, 2025 End: April 27, 2025 Dr. Timmy Floyd MD Referring Provider Active Start: April 27, 2025 End: April 27, 2025 (unrecognized sect ion and content) No Status Records Found INFORMATION SOURCE (unrecogn ized section and content) DATE CREATED AUTHOR 04/25/2025 [facility] FOR RECORDS PERTAINING TO PATIENTS WHO [...] BE BASED ON THE PRIMARY CLINICAL RECORDS. [facility]. provides no warranty or guarantee of the accuracy or completeness of information in this document.
== END | disposition home or self-care (01) ==
PROVIDERS: PCP Internal Medicine; Referring Provider Internal Medicine Medical Oncology; Visit Provider Internal Medicine Medical Oncology
DX: R76.8 Other specified abnormal immunological findings in serum (principal); D47.2 Monoclonal gammopathy
CPT/HCPCS: 76705; 76981

== ENCOUNTER 2025-05-19 10:37 | Outpatient (CLI) | payer MEDICARE, OTHER, SELFPAY ==
[2025-05-19 11:50] LABS: Prothrombin Time (Protime)PT. 13.6 SECONDS (11.7-14.9)
[2025-05-19 13:04] LABS: AST(SGOT) 23 U/L (<=37); Alanine Aminotransfer ALT/SGPT 18 U/L (<=46); Albumin, Serum 4.4 g/dL (3.4-4.8); Alkaline Phosphatase 99 U/L (40-129); Anion Gap 13 (5-15); BUN 33 mg/dL (4-19); BUN/Creat Ratio 25.8 RATIO (10-20); Calcium,Total 9.9 mg/dL (7.6-11.0); Carbon Dioxide 21.8 mmol/L (21.0-32.0); Chloride 103 mmol/L (98-108); Ferritin 109 ng/mL (37-417); Globulin 3.3 g/dL (2.2-4.2); Glucose 96 mg/dL (70-99); Potassium 4.6 mmol/L (3.3-5.1)
[2025-05-19 18:29] LABS: CRP < 3.00 mg/L (0.0-3.0); Iron 84 ug/dL (65-175); Iron Binding Capacity,Total 283 ug/dL (250-450); Iron Binding Capacity,Unsat 199 ug/dL (228-428); LDH 156 U/L (87-241)
[2025-05-23 17:08] LABS: Egg, White 0.10 kU/L (Class 0/I); Egg, Whole 0.13 kU/L (Class 0/I); Mussels 1.20 kU/L (Class II); SCALLOP 4.15 kU/L (Class IV); SESAME SEED 6.64 kU/L (Class IV); Vitamin D 1,25-Dihydroxy 41.5 pg/mL (24.8-81.5); Walnut, (Food) 5.83 kU/L (Class IV)
[2025-05-24 14:08] LABS: Albumin 3.6 g/dL (2.9-4.4); Cytoplasmic Ab (C-ANCA) <1:20 titer (Neg:<1:20); Gamma Globulin 1.6 g/dL (0.4-1.8); Immunoglobulin A 64 mg/dL (61-437); Immunoglobulin G 1721 mg/dL (603-1613); Immunoglobulin M 33 mg/dL (15-143); PROEL- TOTAL PROTEIN 7.3 g/dL (6.0-8.5); Perinuclear Ab (P-ANCA) <1:20 titer (Neg:<1:20)
== END 2025-05-19 23:59 | disposition home or self-care (01) ==
PROVIDERS: PCP Internal Medicine; Referring Provider Internal Medicine Gastroenterology; Visit Provider Internal Medicine Gastroenterology
DX: K74.00 Hepatic fibrosis, unspecified (principal); K50.10 Crohn's disease of large intestine without complications; K57.30 Diverticulosis of large intestine without perforation or abscess without bleeding
CPT/HCPCS: 36415; 80053; 82390; 82652; 82728; 82784; 82785; 83516; 83540; 83550; 83615; 84165; 85610; 85652; 86003; 86005; 86037; 86140; 86255; 86334

== ENCOUNTER 2025-07-05 15:48 | Emergency (ER) | payer MEDICARE, OTHER, SELFPAY ==
[2025-07-05 15:49] VITALS: BP 132/69; PULSE 72; RESP 15; TEMP 36.6; O2SAT 97; BMI 27.3
--- NOTE | 2025-07-05 17:12 | ED.VIS.LOWEX ---
HPI History of Present Illness HPI Narrative: 74-year-old male history of diabetes on a daily aspirin. Recently traveled to [place] and returned last week. Complaining of right calf pain today. Denies any fall injury or trauma. No fever or chills. No chest pain or shortness of breath. No recent injury to his leg. No history of DVT or PE. Chief Complaint: Lower Extremity Injury Informant: patient Occured/Mechanism Mechanism/Context: No injury and No blunt trauma Onset/Context/Timing Onset: Today Context: Gradual Onset Timing: Continuous Quality of Pain: Sharp Current Severity: Mild Maximum Severity: Moderate Associated Symptoms Associated Symptoms: Negative for Parasthesia, Weakness or Loss of Funtion Narrative Narrative: 74-year-old male recent flight to and from [place] ED complaint of right calf pain. No DVT history. No other complaints. No chest pain or shortness of breath. Prior similar symptoms: No Recent Illness/Hospitalization: No PFSH PFSH Medical History Acute bronchitis, unspecified Anemia Constipation Bilateral lower extremity edema Abdominal pain Obesity Health care maintenance Bruising Easy bruising Diverticulosis History of echocardiogram Cardiology follow-up encounter SOB (shortness of breath) on exertion Angina pectoris BPH (benign prostatic hyperplasia) Essential hypertension Mixed hyperlipidemia Type 2 diabetes mellitus Leg cramps Dizziness Wears glasses History of steroid therapy Kidney stones Back pain History of diverticulitis Non-smoker Leg cramps History of stress test Chest pain Ileus Appendicitis radial shortening Diabetes Home Medications ?Medication ?Instructions ?Recorded ?Last Taken ?Type cholecalciferol (vitamin D3) 25 25 mcg PO DAILY supplement 08/13/21 07/13/24 History mcg (1,000 unit) tablet (Vitamin D3) multivitamin 1 tab PO DAILY supplement 08/13/21 07/13/24 History aspirin 81 mg tablet,delayed 81 mg PO QDAY #90 tabs 04/03/22 07/13/24 Rx release (Adult Aspirin Regimen) compress.stocking,knee,reg,lrg #2 ea 03/03/24 Unknown Rx amlodipine 5 mg tablet 5 mg PO QDAY #90 tabs 07/13/24 Unknown Rx lisinopril 20 mg tablet 20 mg PO DAILY hypertension #90 08/09/24 Unknown Rx tabs MDI spacer #1 ea 12/01/24 Unknown Rx fluticasone furoate 100 1 inh inhalation QDAY #30 ea 03/13/25 Unknown Rx mcg/actuation blister powder for inhalation (Arnuity Ellipta) atorvastatin 40 mg tablet 40 mg PO QPM #90 tabs 04/27/25 Unknown Rx glimepiride 2 mg tablet 2 mg PO DAILY 3 months #90 tabs 04/27/25 Unknown Rx metformin 1,000 mg tablet 1,000 mg PO BIDCM diabetes #180 04/27/25 Unknown Rx tabs montelukast 10 mg tablet 10 mg PO QPM #90 tabs 04/27/25 Unknown Rx pantoprazole 40 mg tablet,delayed 40 mg PO QAM GERD #90 tabs 04/27/25 Unknown Rx release (Protonix) pioglitazone 30 mg tablet 30 mg PO DAILY #90 tabs 04/27/25 Unknown Rx ursodiol 300 mg capsule 300 mg PO QDAY #60 caps 05/19/25 Unknown Rx Allergy/AdvReac Type Severity Reaction Status Date / Time amoxicillin Allergy Swelling Verified 07/05/25 15:51 nitroglycerin Allergy SEVERE Verified 07/05/25 15:51 HYPOTENSION hydrocodone (From Vicodin) AdvReac Other Verified 07/05/25 15:51 Family History Grandfather Heart disease Grandfather Heart disease Grandmother Heart disease Esophageal cancer Mother Multiple myeloma Surgical History History of surgery on arm History of colonoscopy History of left heart catheterization (LHC) (~01/16/22) History of transurethral resection of prostate Hx of appendectomy H/O arthroscopic knee surgery H/O hernia repair History of carpal tunnel surgery History of knee replacement Social History Smoking Status: Never smoker alcohol intake: never substance use type: does not use caffeine: Yes Type: carbonated beverages ROS ROS ED ROS Narrative Denies recent illness. Constitutional Constitutional ED: Denies chills or fever(s) Eyes Eyes: Denies blurry vision ENT ENT ED: Denies ear pain Cardiovascular Cardiovascular: Denies chest pain Respiratory/Chest Respiratory/Chest: Denies cough or dyspnea Gastrointestinal Gastrointestinal: Denies abdominal pain Genitourinary Genitourinary ED: Denies dysuria or hematuria Musculoskeletal Musculoskeletal: Denies arthralgias or back pain Integumentary Denies abscess or Abrasions Neurologic Neurologic: Denies headache(s) Psychiatric Psychiatric: Denies anxiety or depression Endocrine Endocrinology: Denies polydipsia Hematologic/Lymphatic Hematologic/Lymphatic: Denies easy bleeding Allergic/Immunologic Allergic/Immunologic ED: Denies mouth swelling EXAM Physical Exam Narrative Exam Narrative: Well-appearing 74-year-old male. Sitting upright in hallway chair. Vital signs are stable afebrile. No acute distress. Pulse ox 97% on room air no hypoxia. H EENT exam pupils round react light. Eyes motions are intact. Neck nontender no lymphadenopathy. Lungs clear to auscultation bilaterally. Heart regular rhythm no murmur rate about 70. Chest wall and ribs nontender. Abdomen soft nontender. Patient moving all 4 extremities. 5-5 grey tender strength. Dorsi plantarflexion intact. Right leg appears normal. There is trace ankle edema. Calf is nontender. There is no cellulitis. There is no cord. There is no discoloration. He has full flexion extension of his right hip, right knee and right ankle. Normal dorsi plantarflexion. Normal touch sensation. He had bilateral knees replaced. There is no inguinal lymphadenopathy. There is no discoloration. Neurologically he is awake alert. Answering questions following commands. Const Vital Signs: 07/05/25 15:49 Temperature 97.9 F Temperature Source Temporal Pulse Rate 72 Respiratory Rate 15 Blood Pressure 132/69 H Blood Pressure Mean 90 Pulse Ox 97 Oxygen Delivery Method Room Air Positive well nourished and well developed; Negative for obese, cachectic, contractures or unkempt General Appearance ED: well developed and NAD; Negative for unkempt, cachectic or contractures Nutritional Appearance: Negative for cachectic or obese HEENT Reports moist mucous membranes normocephalic and atraumatic Eyes PERRL Neck full ROM and supple Chest Wall inspection of chest normal and palpation of chest normal Resp normal respiratory effort, no retractions and clear to auscultation bilaterally Cardio regular rate, regular rhythm, S1 normal heart sound, S2 normal heart sound and no murmurs Rate: Negative for bradycardia or tachycardic Rhythm: Negative for abnormal rhythm GI non-tender, non-distended and no masses Auscultation: normoactive bowel sounds Palpation: soft; Negative for tender, guarding or rebound tenderness present Back/Spine no CVA tenderness General Back: Negative for CVA tenderness Cervical Spine: Negative for cervical spine tenderness Thoracic Spine / Upper Back: Negative for thoracic spinal tenderness Lumbar Spine / Lower Back: Negative for lumbar spinal tenderness Extremity normal to inspection and full ROM Extremity Narrative: Right calf nontender. No discoloration. No bruising or redness. No inguinal lymphadenopathy. Normal range of motion to his right hip, knee and ankle. There is trace edema at the ankle. There is no cord at the calf. He has normal dorsi plantarflexion. Normal DP pulse. Normal sensation and strength of his right foot. General Extremety ED: Negative for edema or weight-bearing difficulty General Extremity: Negative for edema or weight-bearing difficulty Neuro oriented x3, CN's II-XII intact bilaterally and moves all extremities Sensorium / Orientation: alert, oriented to person, oriented to place and oriented to time Motor Exam: strength 5/5 throughout Psych mental status grossly normal Appearance: Negative for unkempt Skin no wounds Lesions: no lesions Rashes: no rashes MDM MDM MDM Narrative Medical decision making narrative: 74-year-old male atraumatic right calf pain after recent travel to and from [place]. Ultrasound being obtained of his right calf to evaluate for possible DVT. Clinically there is no signs of cellulitis or infection there is been no other trauma he does not need any other labs or x-rays. Ultrasound of his right leg showed no clot. Repeat exam unchanged. Nontender discussed ultrasound results of both he and his . They are comfortable him being discharged to home. Treated as a cramp. History & Record Review Discussion w/independent historian: Patient Additional record(s) reviewed:: Prior inpatient record, Prior outpatient record, Prior ED visit, Prior labs and No prior records Radiography Diagnostic Testing: Clinical Impression(s) from Imaging Studies Venous Duplex 07/05/25 18:22 IMPRESSION: Negative DVT in the right leg Reading Location: [facility] Discharge Plan Triage Chief Complaint: Lower Extremity Injury ED Provider: Abimael Garces Dx/Rx/DC Orders Clinical Impression: Calf pain Instructions: ED Leg Cramps Prescriptions: No Action aspirin [Adult Aspirin Regimen] 81 mg tablet,delayed release (DR/EC) 81 mg PO QDAY Qty: 90 3RF (DME) compress.stocking,knee,reg,lrg Misc See Rx Instructions .MEDSUPPLY Qty: 2 1RF Rx Instructions: wear daily for venous insufficiency 20-30 mmHg lisinopril 20 mg tablet 20 mg PO DAILY Qty: 90 3RF (DME) MDI spacer See Rx Instructions .Route .MEDSUPPLY Qty: 1 0RF Rx Instructions: To be used with inhaler ursodiol 300 mg capsule 300 mg PO QDAY Qty: 60 2RF metformin 1,000 mg tablet 1,000 mg PO BIDCM Qty: 180 1RF montelukast 10 mg tablet 10 mg PO QPM Qty: 90 1RF pantoprazole [Protonix] 40 mg tablet,delayed release (DR/EC) 40 mg PO QAM Qty: 90 1RF pioglitazone 30 mg tablet 30 mg PO DAILY Qty: 90 1RF glimepiride 2 mg tablet 2 mg PO DAILY 90 Days Qty: 90 1RF atorvastatin 40 mg tablet 40 mg PO QPM Qty: 90 1RF Arnuity Ellipta 100 mcg/actuation blister with device 1 inh inhalation QDAY Qty: 30 3RF multivitamin Tablet 1 tab PO DAILY cholecalciferol (vitamin D3) [Vitamin D3] 25 mcg (1,000 unit) Tablet 25 mcg PO DAILY amlodipine 5 mg tablet 5 mg PO QDAY Qty: 90 3RF Primary Care Provider: Timmy Floyd Referrals: Timmy Floyd MD [Primary Care Provider, Internal Medicine] - 3-5 Days if not improving Activity Restrictions/Additional Instructions: No signs of a blood clot on the ultrasound. Tylenol and/or Motrin for pain. Massage your calf. Follow-up with your doctor if not improving return if worse. Print Language: Uzbek Disposition Disposition: Home, Self Care
--- NOTE | 2025-07-05 18:22 | US_ITS ---
PROCEDURE: VENOUS DUPLEX IMAG/LIMITED/UNI 07/05/2025 REASON FOR EXAM: M 74 y/o TECHNIQUE: Procedure Code: USVDUL Modality: US Procedure: VENOUS DUPLEX IMAG/LIMITED/UNI FINDINGS: There is no intraluminal echogenicity to suggest the presence of a deep venous thrombosis. Appropriate respiratory variation, augmentation and venous compression is noted. US/Venous Duplex Imag/Limited/Uni IMPRESSION: Negative DVT in the right leg [facility]
--- OUTSIDE RECORDS SUMMARY | 2025-07-05 19:12 | XMS RPT_ITS | CCD ---
Author Organization [facility] Care Team Providers Care Pharmacy Clinical Specialist Name Role Phone Dr. Adam Alex Chi Primary Care Provider [phone] Dr. Adam Alex Chi Referring Provider [phone] Robert Flores Attending Provider [phone] Joe HAND I TUBE BENDER, HAND I TUBE BENDER-C Elaine Blank Attending Provider [phone] Dr. Sarmad Muñoz Attending Provider [phone] Dr. Sarmad Muñoz Other Provider [phone] Adam Alex Chi Primary Care Provider Dr. Adam Alex Chi Referring Provider Dr. Sarmad Muñoz Referring Provider Dr. French Buchanan Attending Provider Dr. French Buchanan Referring Provider Dr. French Buchanan Other Provider Dr. Tobin Castellon Attending Provider [phone] Blanche HAND I TUBE BENDER, HAND I TUBE BENDER-C Raysa Attending Provider Dr. Robert Flores Attending Provider [phone] FriendDr. Jones Other Provider Dr. Reynaldo Schmitt Emergency Provider Dr. Adam Lerma Admit Provider Dr. Adam Lerma Attending Provider Dr. Adam Lerma Other Provider Dr. Sebastian Keith Attending Provider Dr. Sebastian Keith Other Provider Jason HAND I TUBE BENDER, HAND I TUBE BENDER-C Max Narayan Attending Provider Isai, Dr. Adam Loomis Primary Care Provider Isai, Dr. Adam Loomis Referring Provider Dr. Sarmad Muñoz Attending Provider Joe HAND I TUBE BENDER, HAND I TUBE BENDER-C Elaine Blank Attending Provider Isai, Dr. Adam [...] Kala BULL, Dr. Aquino Referring Provider [phone] Mariel BULL, Dr. Warner Primary Care Provider Mariel BULL, Dr. Warner Referring Provider [phone] Luna Nunez Attending Provider [phone] Mariel BULL, Dr. Warner Primary Care Provider Mariel BULL, Dr. Warner Referring Provider [phone] Mariel BULL, Dr. Warner Primary Care Provider Sean Armas Attending Provider [phone] Mariel BULL, Dr. Warner Referring Provider [phone] Dr. Robert Flores DO Referring Provider Mariel BULL, Dr. Warner Primary Care Provider Mariel BULL, Dr. Warner Primary Care Provider Mariel BULL, Dr. Warner Referring Provider [phone] Mariel BULL, Dr. Warner Attending Provider [phone] Mariel BULL, Dr. Warner Primary Care Provider Kala BULL, Dr. Aquino Attending Provider [phone] Dr. Robert Flores DO Attending Provider Dr. Robert Flores DO Referring Provider Oleghe, Efewongbe Primary Care Unavailable Harjinder JAMES, Kathleen Attending Unavailable Kathleen Grande NP Referring Unavailable Oleghe, Efewongbe Attending Unavailable Oleghe, [...] able Oleghe, Efewongbe Referring Unavailable Oleghe, Efewongbe Attending Unavailable Oleghe, Efewongbe Primary Care Unavailable Shivani, Robert Referring Unavailable Miles Armendariz Attending Unavailable Oleghe, Efewongbe Primary Care Unavailable Oleghe, Efewongbe Referring Unavailable Oleghe, Efewongbe Primary Care Unavailable Quirino Hamlin Attending Unavailable Oleghe, Efewongbe Primary Care Unavailable Sarita Damian Attending Unavail able Sarita Damian Referring Unavail able Oleghe, Efewongbe Primary Care Unavailable Ayad Sethril Attending Unavailable Dorinda Champaign Referring Unavailable Oleghe, Efewongbe Attending Unavailable Oleghe, [...] Primary Care Unavailable Luna Dasilva Attending Unavailable Oleghe, Efewongbe Referring Unavailable Miles Armendariz Attending Unavailable Oleghe, Efewongbe Primary Care Unavailable Oleghe, Efewongbe Referring Unavailable Oleghe, Efewongbe Primary Care Unavailable Sean Armas Attending Unavailable Sean Armas Referring Unavailable Oleghe, Efewongbe Primary Care Unavailable Sean Armas Attending Unavailable Oleghe, Efewongbe Primary Care Unavailable DorindaKelby Attending Unavailable Oleghe, Efewongbe Referring Unavailable Oleghe, Efewongbe Primary Care Unavailable Sarita Damian Attending Unavail able Era Mason Attending Unavailable Oleghe, Efewongbe Referring Unavailable Oleghe, Efewongbe Primary Care Unavailable Oleghe, Efewongbe Attending Unavailable Oleghe, Efewongbe Referring Unavailable Oleghe, Efewongbe Primary Care Unavailable Keiko Arrieta Attending Unavailable Oleghe, Efewongbe Referring Unavailable Oleghe, Efewongbe Primary Care Unavailable Oleghe, Efewongbe Consulting Unavailable Oleghe, Efewongbe Primary Care Unavailable Kathleen Grande NP Referring Unavailable DorindaKelby Attending Unavailable Oleghe, Efewongbe Referring Unavailable Oleghe, Efewongbe Primary Care Unavailable Miles Armendariz Attending Unavailable Robert Flores Attending Unavailable Oleghe, Efewongbe Referring Unavailable Oleghe, Efewongbe Primary Care Unavailable Robert Flores Attending Unavailable Oleghe, Efewongbe Referring Unavailable Oleghe, Efewongbe Primary Care Unavailable Miles Armendariz Attending Unavailable Miles Armendariz Referring Unavailable Oleghe, Efewongbe Primary Care Unavailable Allergies Allergy Classification Reported Allergen(s) Allergy Type Date of Onset Reaction(s) Facility (20 sources) Amoxicillin Drug Allergy 2 Swelling [facility] (20 sources) HYDROcodone Drug Allergy 2 Other [facility] (20 sources) Nitroglycerin Drug Allergy 2 SEVERE HYPOTENSION [facility] (1 source) Amoxicillin Drug Allergy 5 [facility] (1 source) HYDROcodone Drug Allergy 5 [facility] (1 source) Nitroglycerin Drug Allergy 5 [facility] Medications Current Medications Medication Drug Class(es) Dates Sig (Normalized) Sig (Original) [id number] 200 actuat albuterol 0.09 mg/actuat metered dose [...] with spacer amLODIPine 5 mg oral tablet (14 sources) Dihydropyridine Calcium Channel Rafy Start: 07-13-2024 [...] 2017 1:00am April 03, 2022 11:35am heart health Start: 11-28-2016 End: 12-20-2016 take 1 tablet by mouth once daily Aspirin 325 MG tablet Discontinued 325 mg PO DAILY@0800 November 28, 2016 1:00am December 20, 2016 12:24pm cholecalciferol 0.025 mg oral tablet (20 sources) Vitamin D Start: 08-13-2021 take 1 tablet by mouth once daily Cholecalciferol (Vitamin D3) (Vitamin D3) 25 mcg (1,000 unit) Tablet Active 25 ug PO DAILY August 13, 2021 12:00am supplement Compress.Stocking,Knee, Reg,Lrg misc (14 sources) Start: 03-03-2024 Compress.Stock ing,Knee ,Reg,Lrg misc Active 0 .MEDSUPPLY 2 1 March 03, 2024 12:00am Venous insufficiency (chronic) (peripheral) wear daily for venous insufficiency 20-30 mmHg Start: 03-03-2024 Compress.Stock ing,Knee,Reg,Lrg misc Active 0 .MEDSUPPLY 2 March 03, 2024 12:00am wear daily for venous insufficiency 20-30 mmHg MDI spacer (14 sources) Start: 12-01-2024 MDI spacer Act phil [...] DAILY August 13, 2021 12:00am Multivitamin Tablet (14 sources) Start: 08-13-2021 Multivitamin T ablet Active 1 {tbl} PO DAILY August 13, 2021 12:00am supplement Start: 08-13-2021 Multivitamin T ablet Active 1 {tbl} PO DAILY August 13, 2021 12:00am ursodiol 300 mg oral capsule (1 source) Bile Acid Start: 05-19-2025 take 1 capsule by mouth once daily Ursodiol 300 mg capsule Active 300 mg PO daily 60 2 May 19, 2025 12:00am Completed/Discontinued Medications Medication Drug Class(es) Dates Sig (Normalized) Sig (Original) atorvastatin 40 mg oral tablet (20 sources) HMG-CoA Reductase Inhibitor Start: 11-29-2024 End: 04-27-2025 take 1 tablet by mouth once daily in the evening Atorvastatin 40 mg tablet Discontinued 40 mg PO EVERY EVENING 90 1 January 02, 2025 3:43pm April 27, 2025 3:18pm azithromycin 250 mg oral tablet (20 sources) [...] 2-5) PO benzonatate 200 mg oral capsule (14 sources) Non-narcotic Antitussive Start: 11-21-2024 End: 12-21-2024 [...] 09, 2024 8:33am Start: 12-24-2022 End: 03-23-2023 Bfyxedirlu-Hfibveus-Itrkdgzc ol (Breztri Aerosphere) 160-9-4.8 mcg/actuation HFA aerosol inhaler Discontinued 2 NMA INHALATION TWICE A DAY 10.7 6 December 24, 2022 12:00am March 23, 2023 10:23am Start: 12-24-2022 End: 03-23-2023 Zamlfcdyvm-Ckflzrnw-Idhasfor ol (Breztri Aerosphere) 160-9-4.8 mcg/actuation HFA aerosol inhaler Discontinued 2 NMA INHALATION TWICE A DAY 10.7 December 24, 2022 12:00am March 23, 2023 10:23am Start: 12-24-2022 End: 03-23-2023 Nvslakqabf-Ecpdkylx-Xooqesps ol (Breztri Aerosphere) 160-9-4.8 mcg/actuation HFA aerosol inhaler Discontinued 2 INH INHALATION TWICE A DAY 10.7 December 23, 2022 11:00pm March 23, 2023 9:23am Start: 12-24-2022 End: 03-23-2023 Vvssbebjym-Llhahpqx-Kzykglda ol (Breztri Aerosphere) 160-9-4.8 mcg/actuation HFA aerosol inhaler Discontinued 2 INH INHALATION TWICE A DAY 10.7 December 24, 2022 12:00am March 23, 2023 10:23am cetirizine hydrochloride 10 mg oral tablet (20 sources) Histamine-1 Receptor Antagonist Start: 05-15-2022 End: 11-06-2023 take 1 tablet by mouth once daily Cetirizine (All Day Allergy (Cetirizine)) 10 mg tablet Discontinued 10 mg PO DAILY 30 July 20, 2023 8:11am November 06, 2023 [...] / neomycin 3.5 mg/ml / polymyxin b 38133 unt/ml ophthalmic suspension (17 sources) Aminoglycoside Antibacterial, Polymyxin-class Antibacterial, Corticosteroid Start: [...] Fluticasone Propionate 110 mcg/actuation HFA aerosol inhaler (14 sources) Start: 12-01-2024 End: 12-02-2024 Fluticasone Propionate [...] mg PO TWICE DAILY WITH MEALS 180 1 January 04, 2025 10:20am April 27, 2025 3:18pm diabetes metoprolol tartrate 25 mg oral tablet (20 [...] tablet Discontinued 10 mg PO EVERY EVENING 90 1 April 17, 2025 9:09am April 27, 2025 3:18pm Asthma Unspecified asthma, uncomplicated pantoprazole 40 mg delayed release oral tablet [...] mg tablet Discontinued 30 mg PO DAILY 90 July 22, 2024 12:46pm January 02, 2025 3:43pm Start: 05-12-2023 End: 05-12-2023 Pioglitazone Discontinued MG PO May 11, 2023 11:00pm May 12, 2023 10:10am Start: 08-13-2021 End: 09-25-2022 take 1 tablet by mouth once daily Pioglitazone 30 mg tablet Discontinued 30 mg PO DAILY August 13, 2021 12:00am September 25, 2022 3:01pm blood sugar polyethylene glycol 3350 76865 mg powder for oral solution (20 sources) [...] bowel prep predniSONE 20 mg oral tablet (15 sources) Start: 07-20-2023 End: 08-04-2023 take 3 [...] 72 hr scopolamine 0.0139 mg/hr transdermal system (14 sources) Anticholinergic Start: 03-03-2024 End: 08-09-2024 Scopolamine [...] Discontinued 40 mg PO AT BEDTIME 90 June 30, 2024 4:28pm November 29, 2024 11:39am cholesterol sucralfate 1000 mg oral tablet (20 sources) Aluminum Complex Start: 03-07-2022 End: 07-16-2022 take 1 tablet by mouth before mealtime Sucralfate (Carafate) 1 gram tablet Discontinued 1 g PO before meals 90 March 07, 2022 12:00am July 16, 2022 8:22am Start: 03-05-2022 End: 03-07-2022 Sucralfate (Carafate) 100 mg /mL suspension Discontinued 10 mL PO before meals 1000 0 March 05, 2022 12:00am March 07, 2022 10:34am take three times a day, one hour before meals and two hours away from other medications for thirty days. 60 actuat tiotropium 0.96265 mg/actuat inhalation spray (15 sources) Anticholinergic Start: 07-20-2023 End: 07-20-2023 take 1.25 ug by inhalation once daily Tiotropium [place] (Spiriva Respimat) 1.25 mcg/actuation mist Discontinued 2 NMA INHALATION DAILY 4 July 20, 2023 12:00am July 20, 2023 8:11am Asthma Unspecified asthma, uncomplicated Start: 07-20-2023 End: 07-20-2023 take 1 puff(s) by inhalation once daily Tiotropium [place] (Spiriva Respimat) 1.25 mcg/actuation mist Discontinued 2 PUFF INHALATION DAILY July 19, 2023 11:00pm July 20, 2023 7:11am Problems Active Problems Problem Classification Problem Date Documented Da te Episodic/Chronic Abdominal pain (20 sources) Abdominal pain; Translations: [Unspecified abdominal pain] 12-03-2023 Episodic Asthma (20 sources) Allergic asthma; Translations: [Unspecified asthma, uncomplicated] Onset: 5 06-18-2022 Chronic Comment on above: Allergic Asthma Exac erbation Chronic obstructive pulmonary disease and bronchiectasis (20 sources) Bronchitis; Translations: [Bronchitis, not specified as acute or chronic] 11-18-2017 Episodic Conditions associated with dizziness or vertigo (20 sources) Dizziness; Translations: [Dizziness and giddiness] Episodic Coronary atherosclerosis and other heart disease (20 sources) Angina pectoris; Translations: [Angina pectoris, unspecified] Onset: Chronic Deficiency and other anemia (20 sources) Anemia; Translations: [Anemia, unspecified] 06-10-2024 Episodic [...] Chronic Immunizations and screening for infectious disease (20 sources) Increased immunoglobulin; Translations: [Other specified abnormal immunological findings in serum] Onset: 5 04-24-2025 Episodic Comment on above: R/O Liver disease May be related to Li leo fibrosis Inflammation; infection of eye (except that caused by tuberculosis or sexually transmitteddisease) (17 sources) Acute conjunctivitis of bilateral eyes caused [...] reviewed, no evidence of adenopathy or Malignancy. Other bone disease and musculoskeletal deformities (20 sources) Osteopenia; Translations: [Other specified disorders of bone density and structure, unspecified site] 12-21-2024 Episodic Other bone disease and musculoskeletal deformities (1 source) Other specified disorders of bone density and structure, unspecified site; Translations: [Other specified disorders of bone density and structure, unspecified site] Onset: Episodic Other connective tissue disease (20 sources) Cramp in lower limb; Translations: [Cramp and spasm] 09-18-2021 Episodic Other connective tissue disease (2 sources) Cramp and spasm; Translations: [Cramp of limb] Episodic Other disorders of stomach and duodenum (15 sources) Delayed gastric emptying; Translations: [Functional dyspepsia] [...] Translations: [Dysphagia, unspecified] Episodic Other gastrointestinal disorders (20 sources) Slow transit constipation; Translations: [Slow transit constipation] 07-16-2022 Episodic Other gastrointestinal disorders (4 sources) Slow transit constipation; Translations: [Slow transit constipation] Episodic Other liver diseases (8 sources) Hepatic fibrosis; 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 Other liver diseases (1 source) Inflammatory liver disease, unspecified; Translations: [Inflammatory liver disease, unspecified] Onset: Chronic Other liver diseases (1 source) Liver disease, unspecified; Translations: [Liver disease, unspecified] Onset: 5 Chronic Other lower respiratory disease (20 sources) Dyspnea on exertion; Translations: [Shortness of breath] 05-15-2022 Episodic Other lower respiratory disease (12 sources) Shortness of breath; Translations: [Shortness of breath] Episodic Other nutritional; endocrine; and metabolic disorders (15 sources) Obesity; Translations: [Obesity, unspecified] 08-28-2023 Chronic Other nutritional; endocrine; and metabolic disorders (1 source) Obesity, unspecified; Translations: [Obesity, unspecified] 08-28-2023 Chronic Regional enteritis and ulcerative colitis (20 sources) Colitis; Translations: [Crohn's disease of large intestine without complications] Chronic Residual codes; unclassified (14 sources) Bilateral lower limb edema; Translations: [Localized edema] 03-03-2024 Episodic Unclassified (1 source) Hepatic fibrosis, unspecified; Translations: [Hepatic fibrosis, unspecified] Onset: 5 Past or Other Problems Problem Classification Problem Date Documented Date Episodic/Chronic Acute bronchitis (20 sources) Acute bronchitis; Translations: [Acute bronchitis, unspecified] Onset: 5 12-01-2024 Episodic Cardiac dysrhythmias (20 sources) Palpitations; Translations: [Palpitations] Onset: 4 Episodic Nonspecific chest pain (20 sources) Chest pain; Translations: [Chest pain, unspecified] Onset: 4 Episodic Other bone disease and musculoskeletal deformities (1 source) Other specified disorders of bone density and structure, other site; Translations: [Other specified disorders of bone density and structure, other site] Onset: 5 Episodic Other screening for suspected conditions (not mental disorders or infectious disease) (18 sources) Cardiovascular stress test abnormal; Translations: [Abnormal result of other cardiovascular function study] Onset: 4 06-29-2024 Episodic Residual codes; unclassified (20 sources) History [...] Angiographically normal; per cardiac cath 01/16/22 Unclassified (18 sources) radial shortening 05-01-2022 Results Test Name Value Interpretation Reference Range Facility [facility] 05-24-2025 Atypical pANCA <1:20 Normal Neg:<1:20 [facility] Comment on above: Result Comment: The atypical pANCA pattern has been observed in asignificant percentage of patients with ulcerative colitis,primary sclerosing cholangitis and autoimmune hepatitis. Performed By: #### L 3300.1200, L501.6710, L300.3900, L101.9900, L5500.0550, L504.2610, L503.6550, L5500.0410, L3300.0960, L503.6030, L3400.0700, L3200.1100, L3100.3425, L500.4050, L3410.2400 ####[facility] [address] [place], [place], [phone] Cytoplasmic Ab <1:20 Normal Neg:<1:20 [facility] Comment on above: Performed By: #### L 3300.1200, L501.6710, L300.3900, L101.9900, L5500.0550, L504.2610, L503.6550, L5500.0410, L3300.0960, L503.6030, L3400.0700, L3200.1100, L3100.3425, L500.4050, L3410.2400 ####[facility] [address] [place], [place], [phone] Perinuclear Ab. <1:20 Normal Neg:<1:20 [facility] Comment on above: Result Comment: The presence of positive fluorescence exhibiting P-ANCA orC-ANCA patterns alone is not specific for the diagnosis ofWegener's Granulomatosis (WG) or microscopic polyangiitis.Decisions about treatment should not be based solely onANCA IFA results. The International ANCA Group Consensusrecommends follow up testing of positive sera with both OK-3 and MPO-ANCA enzyme immunoassays. As many as 5% serumsamples are positive only by EIA. Ref. AM J Clin Tfqgek9052;111:507-513. Performed By: #### L 3300.1200, L501.6710, L300.3900, L101.9900, L5500.0550, L504.2610, L503.6550, L5500.0410, L3300.0960, L503.6030, L3400.0700, L3200.1100, L3100.3425, L500.4050, L3410.2400 ####[facility] [address] [place], [address] Celiac Disease Profileon ENDOMYSIAL IGA Negative Normal Negative [facility] Comment on above: Performed By: #### L 3300.1200, L501.6710, L300.3900, L101.9900, L5500.0550, L504.2610, L503.6550, L5500.0410, L3300.0960, L503.6030, L3400.0700, L3200.1100, L3100.3425, L500.4050, L3410.2400 ####[facility] [address] [place], [place], [phone] tTG IGA <2 Normal 0-3 [facility] Comment on above: Result Comment: Nega tive 0 - 3 Weak Positive 4 - 10 Positive >10 Tissue Transglutaminase (tTG) has been identified as the endomysial antigen. Studies have demonstr- ated that endomysial IgA antibodies have over 99% specificity for gluten sensitive enteropathy. Performed By: #### L 3300.1200, L501.6710, L300.3900, L101.9900, L5500.0550, L504.2610, L503.6550, L5500.0410, L3300.0960, L503.6030, L3400.0700, L3200.1100, L3100.3425, L500.4050, L3410.2400 ####[facility] [address] [place], [place], [phone] Ceruloplasminon 05-24-2025 CERULOPLASMIN 19.2 mg/dL Normal 16.0-31.0 [facility] Comment on above: Result Comment: Perf ormed at: [facility] [id number] [place], [place] [id number] Director: Minh Maradiaga PhD, Phone: [phone] at: [facility] [address] [id number] Director: Elena Hernández MD, Phone: [phone] Performed By: #### L 3300.1200, L501.6710, L300.3900, L101.9900, L5500.0550, L504.2610, L503.6550, L5500.0410, L3300.0960, L503.6030, L3400.0700, L3200.1100, L3100.3425, L500.4050, L3410.2400 ####[facility] [address] [place], [place], [phone] PENNY + Protein Elect, Serumon 05-24-2025 Albumin [Mass/Vol] 3.6 g/dL Normal 2.9-4.4 [facility] Comment on above: Order Comment: Y Performed By: #### L 3300.1200, L501.6710, L300.3900, L101.9900, L5500.0550, L504.2610, L503.6550, L5500.0410, L3300.0960, L503.6030, L3400.0700, L3200.1100, L3100.3425, L500.4050, L3410.2400 ####[facility] [address] [place], [place], [phone] Albumin/Globulin [Mass ratio] 1.0 {ratio} Normal 0.7-1.7 [facility] Comment on above: Order Comment: Y Performed By: #### L 3300.1200, L501.6710, L300.3900, L101.9900, L5500.0550, L504.2610, L503.6550, L5500.0410, L3300.0960, L503.6030, L3400.0700, L3200.1100, L3100.3425, L500.4050, L3410.2400 ####[facility] [address] [place], [place], [phone](736) LHQFH-1-LYEL 0.3 g/dL Normal 0.0-0.4 [facility] Comment on above: Order Comment: Y Performed By: #### L 3300.1200, L501.6710, L300.3900, L101.9900, L5500.0550, L504.2610, L503.6550, L5500.0410, L3300.0960, L503.6030, L3400.0700, L3200.1100, L3100.3425, L500.4050, L3410.2400 ####[facility] [address] [place], [place], [phone](803) XYGVB-5-YWLU 0.9 g/dL Normal 0.4-1.0 [facility] Comment on above: Order Comment: Y Performed By: #### L 3300.1200, L501.6710, L300.3900, L101.9900, L5500.0550, L504.2610, L503.6550, L5500.0410, L3300.0960, L503.6030, L3400.0700, L3200.1100, L3100.3425, L500.4050, L3410.2400 ####[facility] [address] [place], [phone](586) BETA GLOBULIN 0.9 g/dL Normal 0.7-1.3 [facility] Comment on above: Order Comment: Y Performed By: #### L 3300.1200, L501.6710, L300.3900, L101.9900, L5500.0550, L504.2610, L503.6550, L5500.0410, L3300.0960, L503.6030, L3400.0700, L3200.1100, L3100.3425, L500.4050, L3410.2400 ####[facility] [address] [place], [place], [phone](045) GAMMA GLOBULIN 1.6 g/dL Normal 0.4-1.8 [facility] Comment on above: Order Comment: Y Performed By: #### L 3300.1200, L501.6710, L300.3900, L101.9900, L5500.0550, L504.2610, L503.6550, L5500.0410, L3300.0960, L503.6030, L3400.0700, L3200.1100, L3100.3425, L500.4050, L3410.2400 ####[facility] [address] [place], [place], [phone](349) Globulin (S) [Mass/Vol] 3.7 g/dL Normal 2.2-3.9 [facility] Comment on above: Order Comment: Y Performed By: #### L 3300.1200, L501.6710, L300.3900, L101.9900, L5500.0550, L504.2610, L503.6550, L5500.0410, L3300.0960, L503.6030, L3400.0700, L3200.1100, L3100.3425, L500.4050, L3410.2400 ####[facility] [address] [place], [place], [phone] PENNY RESULT,S Comment Abnormal . [facility] Comment on above: Order Comment: Y Result Comment: Immu nofixation shows IgG monoclonal protein with lambdalight chain specificity.IgA appears asymmetrical Performed By: #### L 3300.1200, L501.6710, L300.3900, L101.9900, L5500.0550, L504.2610, L503.6550, L5500.0410, L3300.0960, L503.6030, L3400.0700, L3200.1100, L3100.3425, L500.4050, L3410.2400 ####[facility] [address] [place], [place], [phone] IMMUNOGLOB A QN 64 mg/dL Normal 61-437 [facility] Comment on above: Order Comment: Y Performed By: #### L 3300.1200, L501.6710, L300.3900, L101.9900, L5500.0550, L504.2610, L503.6550, L5500.0410, L3300.0960, L503.6030, L3400.0700, L3200.1100, L3100.3425, L500.4050, L3410.2400 ####[facility] [address] [place], [place], [phone] IMMUNOGLOB G QN 1721 mg/dL High 603-1613 [facility] Comment on above: Order Comment: Y Performed By: #### L 3300.1200, L501.6710, L300.3900, L101.9900, L5500.0550, L504.2610, L503.6550, L5500.0410, L3300.0960, L503.6030, L3400.0700, L3200.1100, L3100.3425, L500.4050, L3410.2400 ####[facility] [address] [place], [place], [phone] IMMUNOGLOB M QN 33 mg/dL Normal 15-143 [facility] Comment on above: Order Comment: Y Performed By: #### L 3300.1200, L501.6710, L300.3900, L101.9900, L5500.0550, L504.2610, L503.6550, L5500.0410, L3300.0960, L503.6030, L3400.0700, L3200.1100, L3100.3425, L500.4050, L3410.2400 ####[facility] [address] [place], [place], [phone] M-Rudolph 1.3 g/dL Abnormal Not Observed [facility] Comment on above: Order Comment: Y Performed By: #### L 3300.1200, L501.6710, L300.3900, L101.9900, L5500.0550, L504.2610, L503.6550, L5500.0410, L3300.0960, L503.6030, L3400.0700, L3200.1100, L3100.3425, L500.4050, L3410.2400 ####[facility] [address] [place], [address] NOTE: Comment Normal . [facility] Comment on above: Order Comment: Y Result Comment: Prot ein electrophoresis scan will follow via computer,mail, or church supervisor delivery. Performed By: #### L 3300.1200, L501.6710, L300.3900, L101.9900, L5500.0550, L504.2610, L503.6550, L5500.0410, L3300.0960, L503.6030, L3400.0700, L3200.1100, L3100.3425, L500.4050, L3410.2400 ####[facility] [address] [place], [address] Protein [Mass/Vol] 7.3 g/dL Normal 6.0-8.5 [facility] Comment on above: Order Comment: Y Performed By: #### L 3300.1200, L501.6710, L300.3900, L101.9900, L5500.0550, L504.2610, L503.6550, L5500.0410, L3300.0960, L503.6030, L3400.0700, L3200.1100, L3100.3425, L500.4050, L3410.2400 ####[facility] [address] [place], [address] Immunoglobulins G/A/M/Jenaro IMMUNOGLOB E QN 35 IU/mL Normal 6-495 [facility] Comment on above: Order Comment: Y Performed By: #### L 3300.1200, L501.6710, L300.3900, L101.9900, L5500.0550, L504.2610, L503.6550, L5500.0410, L3300.0960, L503.6030, L3400.0700, L3200.1100, L3100.3425, L500.4050, L3410.2400 ####[facility] [address] [place], [address] Allergen, Food Profileon CLAM 3.22 kU/L Abnormal Class III [facility] Comment on above: Performed By: #### L 3300.1200, L501.6710, L300.3900, L101.9900, L5500.0550, L504.2610, L503.6550, L5500.0410, L3300.0960, L503.6030, L3400.0700, L3200.1100, L3100.3425, L500.4050, L3410.2400 ####[facility] [address] [place], [place], [phone] CODFISH 0.31 kU/L Abnormal Class 0/I [facility] Comment on above: Performed By: #### L 3300.1200, L501.6710, L300.3900, L101.9900, L5500.0550, L504.2610, L503.6550, L5500.0410, L3300.0960, L503.6030, L3400.0700, L3200.1100, L3100.3425, L500.4050, L3410.2400 ####[facility] [address] [place], [place], [phone] COMMENT Comment Normal . [facility] Comment on above: Result Comment: Aide allan of Specific IgE Class Description of Class ----- < 0.10 0 Negative 0.10 - 0.31 0/I Equivocal/Low 0.32 - 0.55 I Low 0.56 - 1.40 II Moderate 1.41 - 3.90 III High 3.91 - 19.00 IV Very High 19.01 - 100.00 V Very High >100.00 Very High Performed By: #### L 3300.1200, L501.6710, L300.3900, L101.9900, L5500.0550, L504.2610, L503.6550, L5500.0410, L3300.0960, L503.6030, L3400.0700, L3200.1100, L3100.3425, L500.4050, L3410.2400 ####[facility] [address] [facility] [place], [place], [phone] CORN 4.68 kU/L Abnormal Class IV [facility] Comment on above: Performed By: #### L 3300.1200, L501.6710, L300.3900, L101.9900, L5500.0550, L504.2610, L503.6550, L5500.0410, L3300.0960, L503.6030, L3400.0700, L3200.1100, L3100.3425, L500.4050, L3410.2400 ####[facility] [address] [facility] [place], [address] EGG, WHITE 0.10 kU/L Abnormal Class 0/I [facility] Comment on above: Performed By: #### L 3300.1200, L501.6710, L300.3900, L101.9900, L5500.0550, L504.2610, L503.6550, L5500.0410, L3300.0960, L503.6030, L3400.0700, L3200.1100, L3100.3425, L500.4050, L3410.2400 ####[facility] [address] [place], [place], [phone] MILK (COW) <0.10 Normal Class 0 [facility] Comment on above: Performed By: #### L 3300.1200, L501.6710, L300.3900, L101.9900, L5500.0550, L504.2610, L503.6550, L5500.0410, L3300.0960, L503.6030, L3400.0700, L3200.1100, L3100.3425, L500.4050, L3410.2400 ####[facility] [address] [place], [place], [phone] PEANUT 6.63 kU/L Abnormal Class IV [facility] Comment on above: Performed By: #### L 3300.1200, L501.6710, L300.3900, L101.9900, L5500.0550, L504.2610, L503.6550, L5500.0410, L3300.0960, L503.6030, L3400.0700, L3200.1100, L3100.3425, L500.4050, L3410.2400 ####[facility] [address] [place], [place], [phone] SCALLOP 4.15 kU/L Abnormal Class IV [facility] Comment on above: Performed By: #### L 3300.1200, L501.6710, L300.3900, L101.9900, L5500.0550, L504.2610, L503.6550, L5500.0410, L3300.0960, L503.6030, L3400.0700, L3200.1100, L3100.3425, L500.4050, L3410.2400 ####[facility] [address] [place], [address] SESAME SEED 6.64 kU/L Abnormal Class IV [facility] Comment on above: Result Comment: Perf ormed at: BN - [facility] [address] [id number] Director: Elena Hernández MD, Phone: [phone] Performed By: #### L 3300.1200, L501.6710, L300.3900, L101.9900, L5500.0550, L504.2610, L503.6550, L5500.0410, L3300.0960, L503.6030, L3400.0700, L3200.1100, L3100.3425, L500.4050, L3410.2400 ####[facility] [address] [place], [place], [phone] SHRIMP 1.13 kU/L Abnormal Class II [facility] Comment on above: Performed By: #### L 3300.1200, L501.6710, L300.3900, L101.9900, L5500.0550, L504.2610, L503.6550, L5500.0410, L3300.0960, L503.6030, L3400.0700, L3200.1100, L3100.3425, L500.4050, L3410.2400 ####[facility] [address] [place], [place], [phone] SOYBEAN 4.41 kU/L Abnormal Class IV [facility] Comment on above: Performed By: #### L 3300.1200, L501.6710, L300.3900, L101.9900, L5500.0550, L504.2610, L503.6550, L5500.0410, L3300.0960, L503.6030, L3400.0700, L3200.1100, L3100.3425, L500.4050, L3410.2400 ####[facility] [address] [place], [place], [phone] WALNUT,(Food) 5.83 kU/L Abnormal Class IV [facility] Comment on above: Performed By: #### L 3300.1200, L501.6710, L300.3900, L101.9900, L5500.0550, L504.2610, L503.6550, L5500.0410, L3300.0960, L503.6030, L3400.0700, L3200.1100, L3100.3425, L500.4050, L3410.2400 ####[facility] [address] [place], [place], [phone] WHEAT 5.46 kU/L Abnormal Class IV [facility] Comment on above: Performed By: #### L 3300.1200, L501.6710, L300.3900, L101.9900, L5500.0550, L504.2610, L503.6550, L5500.0410, L3300.0960, L503.6030, L3400.0700, L3200.1100, L3100.3425, L500.4050, L3410.2400 ####[facility] [address] [place], [place], [phone] Allergen, Food Profile 14on - BEEF 0.17 kU/L Abnormal Class 0/I [facility] Comment on above: Performed By: #### L 3300.1200, L501.6710, L300.3900, L101.9900, L5500.0550, L504.2610, L503.6550, L5500.0410, L3300.0960, L503.6030, L3400.0700, L3200.1100, L3100.3425, L500.4050, L3410.2400 ####[facility] [address] [place], [place], [phone] CHOCOLATE 0.28 kU/L Abnormal Class 0/I [facility] Comment on above: Performed By: #### L 3300.1200, L501.6710, L300.3900, L101.9900, L5500.0550, L504.2610, L503.6550, L5500.0410, L3300.0960, L503.6030, L3400.0700, L3200.1100, L3100.3425, L500.4050, L3410.2400 ####[facility] [address] [facility] [address] [place], [place], [phone] EGG, WHOLE 0.13 kU/L Abnormal Class 0/I [facility] Comment on above: Performed By: #### L 3300.1200, L501.6710, L300.3900, L101.9900, L5500.0550, L504.2610, L503.6550, L5500.0410, L3300.0960, L503.6030, L3400.0700, L3200.1100, L3100.3425, L500.4050, L3410.2400 ####[facility] [address] [facility] [address] [place], [place], [phone] MUSSELS 1.20 kU/L Abnormal Class II [facility] Comment on above: Performed By: #### L 3300.1200, L501.6710, L300.3900, L101.9900, L5500.0550, L504.2610, L503.6550, L5500.0410, L3300.0960, L503.6030, L3400.0700, L3200.1100, L3100.3425, L500.4050, L3410.2400 ####[facility] [address] [place], [place], [phone] PORK 0.19 kU/L Abnormal Class 0/I [facility] Comment on above: Performed By: #### L 3300.1200, L501.6710, L300.3900, L101.9900, L5500.0550, L504.2610, L503.6550, L5500.0410, L3300.0960, L503.6030, L3400.0700, L3200.1100, L3100.3425, L500.4050, L3410.2400 ####[facility] [address] [place], [address] SALMON 0.21 kU/L Abnormal Class 0/I [facility] Comment on above: Performed By: #### L 3300.1200, L501.6710, L300.3900, L101.9900, L5500.0550, L504.2610, L503.6550, L5500.0410, L3300.0960, L503.6030, L3400.0700, L3200.1100, L3100.3425, L500.4050, L3410.2400 ####[facility] [address] [place], [address] TUNA 0.13 kU/L Abnormal Class 0/I [facility] Comment on above: Performed By: #### L 3300.1200, L501.6710, L300.3900, L101.9900, L5500.0550, L504.2610, L503.6550, L5500.0410, L3300.0960, L503.6030, L3400.0700, L3200.1100, L3100.3425, L500.4050, L3410.2400 ####[facility] [address] [place], [address] Vitamin D 1,25-Dihydroxyon 0 05-23-2025 VIT D 1,25 DIHY 41.5 pg/mL Normal 24.8-81.5 [facility] Comment on above: Performed By: #### L 3300.1200, L501.6710, L300.3900, L101.9900, L5500.0550, L504.2610, L503.6550, L5500.0410, L3300.0960, L503.6030, L3400.0700, L3200.1100, L3100.3425, L500.4050, L3410.2400 ####[facility] [address] [place], [address] Albumin Elph [Mass/Vol]Order ed By: Robert Flores on 05-19-2025 Albumin [Mass/Vol] 3.6 g/dL 2.9-4.4 [facility] Anion gap in Serum or Plasma Ordered By: Robert Flores on 05-19-2025 Anion gap [Moles/Vol] 13 mmol/L 5-15 [facility] BUN/creatinine ratioOrdered By: Robert Flores on 05-19-2025 Urea nitrogen/Creatinine [Mass ratio] 25.8 mg/mg High 10-20 [facility] Bilirubin, totalOrdered By: Robert Flores on 05-19-2025 Bilirubin [Mass/Vol] 0.58 mg/dL 0.00-1.30 [facility] CBC W/Diff, Automatedon Absolute Neut Normal 2.0-7.7 [facility] Comment on above: Result Comment: DONT NEED CALLING TO HAVE PUT BACK IN Performed By: #### L 3130.0010, L100.0100, L500.4050, L3100.3425 ####[facility] [address] [place], [address] HCT Normal 40-54 [facility] Comment on above: Result Comment: DONT NEED CALLING TO HAVE PUT BACK IN Performed By: #### L 3130.0010, L100.0100, L500.4050, L3100.3425 ####[facility] [address] [place], [address] HGB Normal 13.0-16.5 [facility] Comment on above: Result Comment: DONT NEED CALLING TO HAVE PUT BACK IN Performed By: #### L 3130.0010, L100.0100, L500.4050, L3100.3425 ####[facility] [address] [place], [address] MCH Normal 27.0-32.0 [facility] Comment on above: Result Comment: DONT NEED CALLING TO HAVE PUT BACK IN Performed By: #### L 3130.0010, L100.0100, L500.4050, L3100.3425 ####[facility] [address] [place], [address] MCHC Normal 32-36 [facility] Comment on above: Result Comment: DONT NEED CALLING TO HAVE PUT BACK IN Performed By: #### L 3130.0010, L100.0100, L500.4050, L3100.3425 ####[facility] [address] [place], [address] MCV Normal 80-94 [facility] Comment on above: Result Comment: DONT NEED CALLING TO HAVE PUT BACK IN Performed By: #### L 3130.0010, L100.0100, L500.4050, L3100.3425 ####[facility] [address] [place], [address] NEUT% Normal 47-70 [facility] Comment on above: Result Comment: DONT NEED CALLING TO HAVE PUT BACK IN Performed By: #### L 3130.0010, L100.0100, L500.4050, L3100.3425 ####[facility] [address] [place], [address] PLT Normal 150-450 [facility] Comment on above: Result Comment: DONT NEED CALLING TO HAVE PUT BACK IN Performed By: #### L 3130.0010, L100.0100, L500.4050, L3100.3425 ####[facility] [address] [place], [address] RBC Normal 4.6-6.2 [facility] Comment on above: Result Comment: DONT NEED CALLING TO HAVE PUT BACK IN Performed By: #### L 3130.0010, L100.0100, L500.4050, L3100.3425 ####[facility] [address] [place], [address] RDW CV Normal 11.6-14.6 [facility] Comment on above: Result Comment: DONT NEED CALLING TO HAVE PUT BACK IN Performed By: #### L 3130.0010, L100.0100, L500.4050, L3100.3425 ####[facility] [address] [place], [address] RDW SD Normal 35.1-43.9 [facility] Comment on above: Result Comment: DONT NEED CALLING TO HAVE PUT BACK IN Performed By: #### L 3130.0010, L100.0100, L500.4050, L3100.3425 ####[facility] [address] [place], [address] WBC Normal 4.4-11.0 [facility] Comment on above: Result Comment: DONT NEED CALLING TO HAVE PUT BACK IN Performed By: #### L 3130.0010, L100.0100, L500.4050, L3100.3425 ####[facility] [address] [place], [address] CRPon 05-19-2025 C-REACTIVE PROT < 3.00 Normal 0.0-3.0 [facility] Comment on above: Performed By: #### L 3300.1200, L501.6710, L300.3900, L101.9900, L5500.0550, L504.2610, L503.6550, L5500.0410, L3300.0960, L503.6030, L3400.0700, L3200.1100, L3100.3425, L500.4050, L3410.2400 ####[facility] [address] [place], [address] Carbon dioxide, total [Moles /volume] in Central venous bloodOrdered By: Robert Flores on 05-19-2025 CO2 [Moles/Vol] 21.8 mmol/L 21.0-32.0 [facility] Chloride assayOrdered By: Ra katey Flores on 05-19-2025 Chloride [Moles/Vol] 103 mmol/L 98-108 [facility] Comprehensive Metabolic Prof ilon 05-19-2025 Albumin [Mass/Vol] 4.4 g/dL Normal 3.4-4.8 [facility] Comment on above: Performed By: #### L 3300.1200, L501.6710, L300.3900, L101.9900, L5500.0550, L504.2610, L503.6550, L5500.0410, L3300.0960, L503.6030, L3400.0700, L3200.1100, L3100.3425, L500.4050, L3410.2400 ####[facility] [address] [place], [address] Albumin/Globulin [Mass ratio] 1.3 {ratio} Normal 0.9-2.4 [facility] Comment on above: Performed By: #### L 3300.1200, L501.6710, L300.3900, L101.9900, L5500.0550, L504.2610, L503.6550, L5500.0410, L3300.0960, L503.6030, L3400.0700, L3200.1100, L3100.3425, L500.4050, L3410.2400 ####[facility] [address] [place], [place], [phone] ALK PHOS 99 U/L Normal 40-129 [facility] Comment on above: Performed By: #### L 3300.1200, L501.6710, L300.3900, L101.9900, L5500.0550, L504.2610, L503.6550, L5500.0410, L3300.0960, L503.6030, L3400.0700, L3200.1100, L3100.3425, L500.4050, L3410.2400 ####[facility] [address] [place], [place], [phone](598) ALT [Catalytic activity/Vol] 18 U/L Normal <=46 [facility] Comment on above: Performed By: #### L 3300.1200, L501.6710, L300.3900, L101.9900, L5500.0550, L504.2610, L503.6550, L5500.0410, L3300.0960, L503.6030, L3400.0700, L3200.1100, L3100.3425, L500.4050, L3410.2400 ####[facility] [address] [place], [place], [phone] AST [Catalytic activity/Vol] 23 U/L Normal <=37 [facility] Comment on above: Performed By: #### L 3300.1200, L501.6710, L300.3900, L101.9900, L5500.0550, L504.2610, L503.6550, L5500.0410, L3300.0960, L503.6030, L3400.0700, L3200.1100, L3100.3425, L500.4050, L3410.2400 ####[facility] [address] [place], [place], [phone] Bilirubin [Mass/Vol] 0.58 mg/dL Normal 0.00-1.30 [facility] Comment on above: Performed By: #### L 3300.1200, L501.6710, L300.3900, L101.9900, L5500.0550, L504.2610, L503.6550, L5500.0410, L3300.0960, L503.6030, L3400.0700, L3200.1100, L3100.3425, L500.4050, L3410.2400 ####[facility] [address] [place], [address] BUN/CRE 25.8 RATIO High 10-20 [facility] Comment on above: Performed By: #### L 3300.1200, L501.6710, L300.3900, L101.9900, L5500.0550, L504.2610, L503.6550, L5500.0410, L3300.0960, L503.6030, L3400.0700, L3200.1100, L3100.3425, L500.4050, L3410.2400 ####[facility] [address] [facility] [place], [place], [phone]) Calcium [Mass/Vol] 9.9 mg/dL Normal 7.6-11.0 [facility] Comment on above: Performed By: #### L 3300.1200, L501.6710, L300.3900, L101.9900, L5500.0550, L504.2610, L503.6550, L5500.0410, L3300.0960, L503.6030, L3400.0700, L3200.1100, L3100.3425, L500.4050, L3410.2400 ####[facility] [address] [facility] [place], [place], [phone] Chloride [Moles/Vol] 103 mmol/L Normal 98-108 [facility] Comment on above: Performed By: #### L 3300.1200, L501.6710, L300.3900, L101.9900, L5500.0550, L504.2610, L503.6550, L5500.0410, L3300.0960, L503.6030, L3400.0700, L3200.1100, L3100.3425, L500.4050, L3410.2400 ####[facility] [address] [facility] [place], [place], [phone](849) CO2 [Moles/Vol] 21.8 mmol/L Normal 21.0-32.0 [facility] Comment on above: Performed By: #### L 3300.1200, L501.6710, L300.3900, L101.9900, L5500.0550, L504.2610, L503.6550, L5500.0410, L3300.0960, L503.6030, L3400.0700, L3200.1100, L3100.3425, L500.4050, L3410.2400 ####[facility] [address] [place], [place], [phone] Creatinine [Mass/Vol] 1.28 mg/dL High 0.70-1.20 [facility] Comment on above: Performed By: #### L 3300.1200, L501.6710, L300.3900, L101.9900, L5500.0550, L504.2610, L503.6550, L5500.0410, L3300.0960, L503.6030, L3400.0700, L3200.1100, L3100.3425, L500.4050, L3410.2400 ####[facility] [address] [place], [place], [phone] GAP 13 Normal 5-15 [facility] Comment on above: Performed By: #### L 3300.1200, L501.6710, L300.3900, L101.9900, L5500.0550, L504.2610, L503.6550, L5500.0410, L3300.0960, L503.6030, L3400.0700, L3200.1100, L3100.3425, L500.4050, L3410.2400 ####[facility] [address] [facility] [address] [place], [place], [id number] GFR/1.73 sq M.predicted among non-blacks MDRD (S/P/Bld) [Vol rate/Area] 59 mL/min/{1.73_m2} Low >60 [facility] Comment on above: Result Comment: mL/m in/1.73m2 CKD-EPI Creatinine Equation (2020) Performed By: #### L 3300.1200, L501.6710, L300.3900, L101.9900, L5500.0550, L504.2610, L503.6550, L5500.0410, L3300.0960, L503.6030, L3400.0700, L3200.1100, L3100.3425, L500.4050, L3410.2400 ####[facility] [address] [place], [address] Globulin (S) [Mass/Vol] 3.3 g/dL Normal 2.2-4.2 [facility] Comment on above: Performed By: #### L 3300.1200, L501.6710, L300.3900, L101.9900, L5500.0550, L504.2610, L503.6550, L5500.0410, L3300.0960, L503.6030, L3400.0700, L3200.1100, L3100.3425, L500.4050, L3410.2400 ####[facility] [address] [place], [address] Glucose [Mass/Vol] 96 mg/dL Normal 70-99 [facility] Comment on above: Performed By: #### L 3300.1200, L501.6710, L300.3900, L101.9900, L5500.0550, L504.2610, L503.6550, L5500.0410, L3300.0960, L503.6030, L3400.0700, L3200.1100, L3100.3425, L500.4050, L3410.2400 ####[facility] [address] [place], [address] Potassium [Moles/Vol] 4.6 mmol/L Normal 3.3-5.1 [facility] Comment on above: Performed By: #### L 3300.1200, L501.6710, L300.3900, L101.9900, L5500.0550, L504.2610, L503.6550, L5500.0410, L3300.0960, L503.6030, L3400.0700, L3200.1100, L3100.3425, L500.4050, L3410.2400 ####[facility] [address] [place], [address] Sodium [Moles/Vol] 138 mmol/L Normal 133-145 [facility] Comment on above: Performed By: #### L 3300.1200, L501.6710, L300.3900, L101.9900, L5500.0550, L504.2610, L503.6550, L5500.0410, L3300.0960, L503.6030, L3400.0700, L3200.1100, L3100.3425, L500.4050, L3410.2400 ####[facility] [address] [place], [place], [phone] T PROT 7.7 g/dL Normal 5.9-8.4 [facility] Comment on above: Performed By: #### L 3300.1200, L501.6710, L300.3900, L101.9900, L5500.0550, L504.2610, L503.6550, L5500.0410, L3300.0960, L503.6030, L3400.0700, L3200.1100, L3100.3425, L500.4050, L3410.2400 ####[facility] [address] [place], [place], [id number] Urea nitrogen [Mass/Vol] 33 mg/dL High 4-19 [facility] Comment on above: Performed By: #### L 3300.1200, L501.6710, L300.3900, L101.9900, L5500.0550, L504.2610, L503.6550, L5500.0410, L3300.0960, L503.6030, L3400.0700, L3200.1100, L3100.3425, L500.4050, L3410.2400 ####[facility] [address] [place], [place], [phone]) ALB Normal 3.4-4.8 [facility] Comment on above: Result Comment: DONT NEED CALLING TO HAVE PUT BACK IN Performed By: #### L 3130.0010, L100.0100, L500.4050, L3100.3425 ####[facility] [address] [place], [address] ALK PHOS Normal 40-129 [facility] Comment on above: Result Comment: DONT NEED CALLING TO HAVE PUT BACK IN Performed By: #### L 3130.0010, L100.0100, L500.4050, L3100.3425 ####[facility] [address] [place], [address] ALT Normal <=46 [facility] Comment on above: Result Comment: DONT NEED CALLING TO HAVE PUT BACK IN Performed By: #### L 3130.0010, L100.0100, L500.4050, L3100.3425 ####[facility] [address] [place], [address] AST Normal <=37 [facility] Comment on above: Result Comment: DONT NEED CALLING TO HAVE PUT BACK IN Performed By: #### L 3130.0010, L100.0100, L500.4050, L3100.3425 ####[facility] [address] [place], [address] BUN Normal 4-19 [facility] Comment on above: Result Comment: DONT NEED CALLING TO HAVE PUT BACK IN Performed By: #### L 3130.0010, L100.0100, L500.4050, L3100.3425 ####[facility] [address] [place], [address] BUN/CRE Normal 10-20 [facility] Comment on above: Result Comment: DONT NEED CALLING TO HAVE PUT BACK IN Performed By: #### L 3130.0010, L100.0100, L500.4050, L3100.3425 ####[facility] [address] [place], [address] Calcium Normal 7.6-11.0 [facility] Comment on above: Result Comment: DONT NEED CALLING TO HAVE PUT BACK IN Performed By: #### L 3130.0010, L100.0100, L500.4050, L3100.3425 ####[facility] [address] [place], [address] CL Normal 98-108 [facility] Comment on above: Result Comment: DONT NEED CALLING TO HAVE PUT BACK IN Performed By: #### L 3130.0010, L100.0100, L500.4050, L3100.3425 ####[facility] [address] [place], [address] CO2 Normal 21.0-32.0 [facility] Comment on above: Result Comment: DONT NEED CALLING TO HAVE PUT BACK IN Performed By: #### L 3130.0010, L100.0100, L500.4050, L3100.3425 ####[facility] [address] [place], [address] CREAT,SERUM Normal 0.70-1.20 [facility] Comment on above: Result Comment: DONT NEED CALLING TO HAVE PUT BACK IN Performed By: #### L 3130.0010, L100.0100, L500.4050, L3100.3425 ####[facility] [address] [place], [address] eGFR Normal >60 [facility] Comment on above: Result Comment: DONT NEED CALLING TO HAVE PUT BACK IN Performed By: #### L 3130.0010, L100.0100, L500.4050, L3100.3425 ####[facility] [address] [place], [address] GAP Normal 5-15 [facility] Comment on above: Result Comment: DONT NEED CALLING TO HAVE PUT BACK IN Performed By: #### L 3130.0010, L100.0100, L500.4050, L3100.3425 ####[facility] [address] [place], [address] GLU Normal 70-99 [facility] Comment on above: Result Comment: DONT NEED CALLING TO HAVE PUT BACK IN Performed By: #### L 3130.0010, L100.0100, L500.4050, L3100.3425 ####[facility] [address] [place], [address] Potassium Normal 3.3-5.1 [facility] Comment on above: Result Comment: DONT NEED CALLING TO HAVE PUT BACK IN Performed By: #### L 3130.0010, L100.0100, L500.4050, L3100.3425 ####[facility] [address] [place], [address] T BILI Normal 0.00-1.30 [facility] Comment on above: Result Comment: DONT NEED CALLING TO HAVE PUT BACK IN Performed By: #### L 3130.0010, L100.0100, L500.4050, L3100.3425 ####[facility] [address] [place], [address] T PROT Normal 5.9-8.4 [facility] Comment on above: Result Comment: DONT NEED CALLING TO HAVE PUT BACK IN Performed By: #### L 3130.0010, L100.0100, L500.4050, L3100.3425 ####[facility] [address] [place], [address] Comprehensive Metabolic Profil Normal 133-145 [facility] Comment on above: Result Comment: DONT NEED CALLING TO HAVE PUT BACK IN Performed By: #### L 3130.0010, L100.0100, L500.4050, L3100.3425 ####[facility] [address] [place], [address] Erythrocyte Sed Rateon 05-19 SED RATE 22 mm/hr High 0-20 [facility] Comment on above: Performed By: #### L 3300.1200, L501.6710, L300.3900, L101.9900, L5500.0550, L504.2610, L503.6550, L5500.0410, L3300.0960, L503.6030, L3400.0700, L3200.1100, L3100.3425, L500.4050, L3410.2400 ####[facility] [address] [place], [place], [id number] Erythrocyte sedimentation ra teOrdered By: Robert Flores on 05-19-2025 ESR (Bld) [Velocity] 22 mm/h High 0-20 [facility] Ferritinon 05-19-2025 Ferritin [Mass/Vol] 109 ng/mL Normal 37-417 [facility] Comment on above: Performed By: #### L 3300.1200, L501.6710, L300.3900, L101.9900, L5500.0550, L504.2610, L503.6550, L5500.0410, L3300.0960, L503.6030, L3400.0700, L3200.1100, L3100.3425, L500.4050, L3410.2400 ####[facility] [address] [place], [place], [id number] Gastroenterology Visit Repor ton 05-19-2025 Gastroenterology Visit Report Normal [facility] Glomerular filtration rate ( GFR) estimation/1.73 sq m using serum, plasma, or whole bOrdered By: Robert Flores on 05-19-2025 GFR/1.73 sq M.predicted among non-blacks MDRD (S/P/Bld) [Vol rate/Area] 59 mL/min/{1.73_m2} Low >60 [facility] Comment on above: mL/min/1.73m2 CKD-EP I Creatinine Equation (2020) PENNY + Protein Elect, Serumon 05-19-2025 A/G RATIO Normal [facility] Comment on above: Order Comment: N Result Comment: DONT NEED CALLING TO HAVE PUT BACK IN Performed By: #### L 3130.0010, L100.0100, L500.4050, L3100.3425 ####[facility] [address] [place], [address] ALBUMIN Normal [facility] Comment on above: Order Comment: N Result Comment: DONT NEED CALLING TO HAVE PUT BACK IN Performed By: #### L 3130.0010, L100.0100, L500.4050, L3100.3425 ####[facility] [address] [place], [address] DDGKX-4-ZLBR Normal [facility] Comment on above: Order Comment: N Result Comment: DONT NEED CALLING TO HAVE PUT BACK IN Performed By: #### L 3130.0010, L100.0100, L500.4050, L3100.3425 ####[facility] [address] [place], [address] MINYM-7-CTAH Normal [facility] Comment on above: Order Comment: N Result Comment: DONT NEED CALLING TO HAVE PUT BACK IN Performed By: #### L 3130.0010, L100.0100, L500.4050, L3100.3425 ####[facility] [address] [place], [address] BETA GLOBULIN Normal [facility] Comment on above: Order Comment: N Result Comment: DONT NEED CALLING TO HAVE PUT BACK IN Performed By: #### L 3130.0010, L100.0100, L500.4050, L3100.3425 ####[facility] [address] [place], [address] GAMMA GLOBULIN Normal [facility] Comment on above: Order Comment: N Result Comment: DONT NEED CALLING TO HAVE PUT BACK IN Performed By: #### L 3130.0010, L100.0100, L500.4050, L3100.3425 ####[facility] [address] [place], [address] IMMUNOGLOB A QN Normal [facility] Comment on above: Order Comment: N Result Comment: DONT NEED CALLING TO HAVE PUT BACK IN Performed By: #### L 3130.0010, L100.0100, L500.4050, L3100.3425 ####[facility] [address] [place], [address] [facility]: Order Comment: N Result Comment: DONT NEED CALLING TO HAVE PUT BACK IN Performed By: #### L 3130.0010, L100.0100, L500.4050, L3100.3425 ####[facility] [address] [place], [address] IMMUNOGLOB M [facility] Comment on above: Order Comment: N Result Comment: DONT NEED CALLING TO HAVE PUT BACK IN Performed By: #### L 3130.0010, L100.0100, L500.4050, L3100.3425 ####[facility] [address] [place], [address] M-Rudolph [facility] Comment on above: Order Comment: N Result Comment: DONT NEED CALLING TO HAVE PUT BACK IN Performed By: #### L 3130.0010, L100.0100, L500.4050, L3100.3425 ####[facility] [address] [place], [address] PROTEIN,TOTAL Normal 6.0-8.5 [facility] Comment on above: Order Comment: N Result Comment: DONT NEED CALLING TO HAVE PUT BACK IN Performed By: #### L 3130.0010, L100.0100, L500.4050, L3100.3425 ####[facility] [address] [place], [address] IgEOrdered By: Robert kim on 05-19-2025 IgE 35 IU/mL 6-495 [facility] International normalized rat io (INR) calculationOrdered By: Robert Flores on 05-19-2025 INR Coag (Bld) [Relative time] 1.0 {INR} [facility] Interpretation of serum or p lasma protein pattern by immunofixation (narrative resultOrdered By: Robert Flores on 05-19-2025 Protein Fractions Immunofixation Yony [Interp] 1.3 g/dL High Not Observed [facility] Iron measurement (mass/mass) Ordered By: Robert Flores on 05-19-2025 Iron (Unsp spec) [Mass/Mass] 84 ug/dL 65-175 [facility] Iron+Iron Binding Capacityon 05-19-2025 Iron [Mass/Vol] 84 ug/dL Normal 65-175 [facility] Comment on above: Performed By: #### L 3300.1200, L501.6710, L300.3900, L101.9900, L5500.0550, L504.2610, L503.6550, L5500.0410, L3300.0960, L503.6030, L3400.0700, L3200.1100, L3100.3425, L500.4050, L3410.2400 ####[facility] [address] [place], [address] IRON SATURATION 30.0 Normal 9-55 [facility] Comment on above: Performed By: #### L 3300.1200, L501.6710, L300.3900, L101.9900, L5500.0550, L504.2610, L503.6550, L5500.0410, L3300.0960, L503.6030, L3400.0700, L3200.1100, L3100.3425, L500.4050, L3410.2400 ####[facility] [address] [place], [address] TIBC 283 ug/dL Normal 250-450 [facility] Comment on above: Performed By: #### L 3300.1200, L501.6710, L300.3900, L101.9900, L5500.0550, L504.2610, L503.6550, L5500.0410, L3300.0960, L503.6030, L3400.0700, L3200.1100, L3100.3425, L500.4050, L3410.2400 ####[facility] [address] [place], [address] UIBC 199 ug/dL Low 228-428 [facility] Comment on above: Performed By: #### L 3300.1200, L501.6710, L300.3900, L101.9900, L5500.0550, L504.2610, L503.6550, L5500.0410, L3300.0960, L503.6030, L3400.0700, L3200.1100, L3100.3425, L500.4050, L3410.2400 ####[facility] [address] [place], [address] [place] Lambda Light Chainson 05-19-2025 FR KAPPA LT CHN Normal [facility] Comment on above: Result Comment: DONT NEED CALLING TO HAVE PUT BACK IN Performed By: #### L 3130.0010, L100.0100, L500.4050, L3100.3425 ####[facility] [address] [place], [address] FR LAMBDA LT CH Normal [facility] Comment on above: Result Comment: DONT NEED CALLING TO HAVE PUT BACK IN Performed By: #### L 3130.0010, L100.0100, L500.4050, L3100.3425 ####[facility] [address] [place], [address] KAPPA/LAMBDA % Normal [facility] Comment on above: Result Comment: DONT NEED CALLING TO HAVE PUT BACK IN Performed By: #### L 3130.0010, L100.0100, L500.4050, L3100.3425 ####[facility] [address] [place], [address] LDHon 08-08-2025 LDH 156 U/L Normal 87-241 [facility] Comment on above: Order Comment: 1 Performed By: #### L 3300.1200, L501.6710, L300.3900, L101.9900, L5500.0550, L504.2610, L503.6550, L5500.0410, L3300.0960, L503.6030, L3400.0700, L3200.1100, L3100.3425, L500.4050, L3410.2400 ####[facility] [address] [place], [address] Laboratory - Chemistry and C hemistry - challengeOrdered By: Robert Flores on 05-19-2025 AST [Catalytic activity/Vol] 23 U/L <38 [facility] Laboratory - Miscellaneous t estsOrdered By: Robert Flores on 05-19-2025 Service comment (Unsp spec) [Interp] Comment . [facility] Comment on above: Levels of Specific I gE Class Description of Class ----- < 0.10 0 Negative 0.10 - 0.31 0/I Equivocal/Low 0.32 - 0.55 I Low 0.56 - 1.40 II Moderate 1.41 - 3.90 III High 3.91 - 19.00 IV Very High 19.01 - 100.00 V Very High >100.00 Very High Lactate dehydrogenase (LDH) measurementOrdered By: Robert Flores on 05-19-2025 LDH [Catalytic activity/Vol] 156 U/L 87-241 [facility] No Panel InformationOrdered By: Robert Flores on 05-19-2025 Addendum Document Comment . [facility] Comment on above: Protein electrophore sis scan will follow via computer,mail, or church supervisor delivery. Unsaturated Iron Binding Capacity 199 ug/dL Low 228-428 [facility] Potassium measurement (mass/ volume)Ordered By: Robert Flores on 05-19-2025 Potassium (Unsp spec) [Mass/Vol] 4.6 mmol/L 3.3-5.1 [facility] Prothrombin Time w/INRon INR Coag (PPP) [Relative time] 1.0 {INR} Normal [facility] Comment on above: Performed By: #### L 3300.1200, L501.6710, L300.3900, L101.9900, L5500.0550, L504.2610, L503.6550, L5500.0410, L3300.0960, L503.6030, L3400.0700, L3200.1100, L3100.3425, L500.4050, L3410.2400 ####[facility] [address] [place], [place], [id number] PT Coag (PPP) [Time] 13.6 s Normal 11.7-14.9 [facility] Comment on above: Performed By: #### L 3300.1200, L501.6710, L300.3900, L101.9900, L5500.0550, L504.2610, L503.6550, L5500.0410, L3300.0960, L503.6030, L3400.0700, L3200.1100, L3100.3425, L500.4050, L3410.2400 ####[facility] [address] [place], [address] Prothrombin timeOrdered By: Robert Flores on 05-19-2025 PT Coag (PPP) [Time] 13.6 s 11.7-14.9 [facility] Serum beef IgE antibody assa y (units/volume)Ordered By: Robert Flores on 05-19-2025 Beef IgE Qn (S) 0.17 kU/L High Class 0/I [facility] Serum black walnut IgE antib sujey assay (units/volume)Ordered By: Robert Flores on 05-19-2025 Black [place] IgE Qn (S) 5.83 kU/L High Class IV [facility] Serum clam IgE antibody assa y (units/volume)Ordered By: Robert Flores on 05-19-2025 Clam IgE Qn (S) 3.22 kU/L High Class III [facility] Serum classic neutrophil cyt oplasmic antibody assay (units/volume)Ordered By: Robert Flores on 05-19-2025 Neutrophil cytoplasmic Ab.classic Qn (S) <1:20 titer Neg:<1:20 [facility] Serum codfish IgE antibody a ssay (units/volume)Ordered By: Robert Flores on 05-19-2025 Codfish IgE Qn (S) 0.31 kU/L High Class 0/I [facility] Serum corn IgE antibody assa y (units/volume)Ordered By: Robert Flores on 05-19-2025 [place] IgE Qn (S) 4.68 kU/L High Class IV [facility] Serum cow milk IgE antibody assay (units/volume)Ordered By: Robert Flores on 05-19-2025 Cow milk IgE Qn (S) <0.10 kU/L Class 0 [facility] Serum creatinine measurement (mass/volume)Ordered By: Robert Flores on 05-19-2025 Creatinine [Mass/Vol] 1.28 mg/dL High 0.70-1.20 [facility] Serum egg white IgE antibody assay (units/volume)Ordered By: Robert Flores on 05-19-2025 Egg white IgE Qn (S) 0.10 kU/L High Class 0/I [facility] Serum globulin measurement ( mass/volume)Ordered By: Robert Flores on 05-19-2025 Globulin (S) [Mass/Vol] 3.7 g/dL 2.2-3.9 [facility] Serum glucose measurement (m ass/volume)Ordered By: Robert Flores on 05-19-2025 Glucose [Mass/Vol] 96 mg/dL 70-99 [facility] Serum or plasma C reactive p rotein measurement (mass/volume)Ordered By: Robert Flores on 05-19-2025 CRP [Mass/Vol] mg/L 0.0-3.0 [facility] Serum or plasma IgA measurem ent (mass/volume)Ordered By: Robert Flores on 05-19-2025 IgA [Mass/Vol] 64 mg/dL 61-437 [facility] Serum or plasma IgG measurem ent (mass/volume)Ordered By: Robert Flores on 05-19-2025 IgG [Mass/Vol] 1721 mg/dL High 603-1613 [facility] Serum or plasma alanine delgado otransferase (ALT) measurementOrdered By: Robert Flores on 05-19-2025 ALT [Catalytic activity/Vol] 18 U/L <47 [facility] Serum or plasma albumin jhon urement (mass/volume)Ordered By: Robert Flores on 05-19-2025 Albumin [Mass/Vol] 4.4 g/dL 3.4-4.8 [facility] Serum or plasma albumin/glob ulin mass ratioOrdered By: Robert Flores on 05-19-2025 Albumin/Globulin [Mass ratio] 1.3 {ratio} 0.9-2.4 [facility] Serum or plasma alkaline joe sphatase measurementOrdered By: Robert Flores on 05-19-2025 ALP [Catalytic activity/Vol] 99 U/L 40-129 [facility] Serum or plasma alpha 1 glob ulin measurement by electrophoresis (mass/volume)Ordered By: Robert Flores on 05-19-2025 Alpha 1 globulin Elph [Mass/Vol] 0.3 g/dL 0.0-0.4 [facility] Alpha 1 globulin Elph [Mass/Vol] 0.9 g/dL 0.4-1.0 [facility] Serum or plasma beta globuli n measurement by electrophoresis (mass/volume)Ordered By: Robert Flores on 05-19-2025 Beta globulin Elph [Mass/Vol] 0.9 g/dL 0.7-1.3 [facility] Serum or plasma calcitriol m easurement (mass/volume)Ordered By: Robert Flores on 05-19-2025 1,25-dihydroxyvitamin D3 [Mass/Vol] 41.5 pg/mL 24.8-81.5 [facility] Serum or plasma calcium jhon urement (mass/volume)Ordered By: Robert Flores on 05-19-2025 Calcium [Mass/Vol] 9.9 mg/dL 7.6-11.0 [facility] Serum or plasma ferritin darrell surement (mass/volume)Ordered By: Robert Flores on 05-19-2025 Ferritin [Mass/Vol] 109 ng/mL 37-417 [facility] Serum or plasma gamma globul in measurement by electrophoresis (mass/volume)Ordered By: Robert Flores on 05-19-2025 Gamma globulin Elph [Mass/Vol] 1.6 g/dL 0.4-1.8 [facility] Serum or plasma immunoelectr ophoresis interpretation (nominal result)Ordered By: Robert Flores on 05-19-2025 Interpretation IEP [Interp] Comment High . [facility] Comment on above: Immunofixation shows IgG monoclonal protein with lambdalight chain specificity.IgA appears asymmetrical Serum or plasma iron saturat ion measurement (mass fraction)Ordered By: Robert Flores on 05-19-2025 Iron saturation [Mass fraction] 30.0 % 9-55 [facility] Serum or plasma protein jhon urement (mass/volume)Ordered By: Robert Flores on 05-19-2025 Protein [Mass/Vol] 7.3 g/dL 6.0-8.5 [facility] Serum or plasma urea nitroge n measurement (mass/volume)Ordered By: Robert Flores on 05-19-2025 Urea nitrogen [Mass/Vol] 33 mg/dL High 4-19 [facility] Serum peanut IgE antibody as say (units/volume)Ordered By: Robert Flores on 05-19-2025 Peanut IgE Qn (S) 6.63 kU/L High Class IV [facility] Serum perinuclear neutrophil cytoplasmic antibody titer by immunofluorescenceOrdered By: Robert Flores on 05-19-2025 Neutrophil cytoplasmic Ab.perinuclear IF (S) [Titer] <1:20 titer Neg:<1:20 [facility] Comment on above: The presence of posi tive fluorescence exhibiting P-ANCA orC-ANCA patterns alone is not specific for the diagnosis ofWegener's Granulomatosis (WG) or microscopic polyangiitis.Decisions about treatment should not be based solely onANCA IFA results. The [employer] Consensusrecommends follow up testing of positive sera with both OK-3 and MPO-ANCA enzyme immunoassays. As many as 5% serumsamples are positive only by EIA. Ref. AM J Clin Kyldws9065;111:507-513. Serum pork IgE antibody assa y (units/volume)Ordered By: Robert Flores on 05-19-2025 Pork IgE Qn (S) 0.19 kU/L High Class 0/I [facility] Serum salmon IgE antibody as say (units/volume)Ordered By: Robert Flores on 05-19-2025 [place] IgE Qn (S) 0.21 kU/L High Class 0/I [facility] Serum soybean IgE antibody a ssay (units/volume)Ordered By: Robert Flores on 05-19-2025 Soybean IgE Qn (S) 4.41 kU/L High Class IV [facility] Serum tissue transglutaminas e (tTG) IgA antibody assay (units/volume)Ordered By: Robert Flores on 05-19-2025 tTG IgA Qn (S) <2 U/mL 0-3 [facility] Comment on above: Negative 0 - 3 Weak Positive 4 - 10 Positive >10 Tissue Transglutaminase (tTG) has been identified as the endomysial antigen. Studies have demonstr- ated that endomysial IgA antibodies have over 99% specificity for gluten sensitive enteropathy. Serum tuna IgE antibody assa y (units/volume)Ordered By: Robert Flores on 05-19-2025 Tuna IgE Qn (S) 0.13 kU/L High Class 0/I [facility] Serum wheat IgE antibody ass ay (units/volume)Ordered By: Robert Flores on 05-19-2025 Wheat IgE Qn (S) 5.46 kU/L High Class IV [facility] Serum whole egg IgE antibody assay (units/volume)Ordered By: Robert Flores on 05-19-2025 Whole Egg IgE Qn (S) 0.13 kU/L High Class 0/I [facility] Sodium levelOrdered By: Ki Estrada on 05-19-2025 Sodium [Moles/Vol] 138 mmol/L 133-145 [facility] Total proteinOrdered By: Ming Flores on 05-19-2025 Protein [Mass/Vol] 7.7 g/dL 5.9-8.4 [facility] Oncology Visit Reporton 04-12 Oncology Visit Report Normal [facility] ABD Limited w/ Elastographyo n 04-27-2025 ABD Limited w/ Elastography Normal [facility] Internal Medicine Office Vis iton 04-27-2025 Internal Medicine Office Visit Normal [facility] Laboratory - Hematology and Cell countsOrdered By: Timmy Floyd on 04-27-2025 HbA1c (Bld) [Mass fraction] 7.2 % High 4.2-6.3 [facility] Oncology Visit Reporton 04-11 Oncology Visit Report Normal [facility] Anion gap in Serum or Plasma Ordered By: Timmy Floyd on 04-21-2025 Anion gap [Moles/Vol] 10 mmol/L - [facility] BUN/creatinine ratioOrdered By: Timmy Floyd on 04-21-2025 Urea nitrogen/Creatinine [Mass ratio] 27.7 mg/mg High 10-20 [facility] Basic Metabolic Profile (BMP )on 04-21-2025 BUN/CRE 27.7 RATIO High - [facility] Comment on above: Performed By: #### L 500.2500, L506.1001 ####[facility] [address] [place], [address] Calcium [Mass/Vol] 9.8 mg/dL Normal 7.6-11.0 [facility] Comment on above: Performed By: #### L 500.2500, L506.1001 ####[facility] [address] [place], [address] Chloride [Moles/Vol] 103 mmol/L Normal 98-108 [facility] Comment on above: Performed By: #### L 500.2500, L506.1001 ####[facility] [address] [place], [address] CO2 [Moles/Vol] 23.7 mmol/L Normal 21.0-32.0 [facility] Comment on above: Performed By: #### L 500.2500, L506.1001 ####[facility] [address] [place], [address] Creatinine [Mass/Vol] 1.24 mg/dL High 0.70-1.20 [facility] Comment on above: Performed By: #### L 500.2500, L506.1001 ####[facility] [address] [place], [address] GAP 10 Normal 5-15 [facility] Comment on above: Performed By: #### L 500.2500, L506.1001 ####[facility] [address] [place], [address] GFR/1.73 sq M.predicted among non-blacks MDRD (S/P/Bld) [Vol rate/Area] 62 mL/min/{1.73_m2} Normal >60 [facility] Comment on above: Result Comment: mL/m in/1.73m2 CKD-EPI Creatinine Equation (2020) Performed By: #### L 500.2500, L506.1001 ####[facility] [address] [place], [address] Glucose [Mass/Vol] 128 mg/dL High 70-99 [facility] Comment on above: Performed By: #### L 500.2500, L506.1001 ####[facility] [address] [place], [address] Potassium [Moles/Vol] 4.7 mmol/L Normal 3.3-5.1 [facility] Comment on above: Performed By: #### L 500.2500, L506.1001 ####[facility] [address] [place], [address] Sodium [Moles/Vol] 136 mmol/L Normal 133-145 [facility] Comment on above: Performed By: #### L 500.2500, L506.1001 ####[facility] [address] [place], [address] Urea nitrogen [Mass/Vol] 34 mg/dL High 4-19 [facility] Comment on above: Performed By: #### L 500.2500, L506.1001 ####[facility] [address] [place], [address] Carbon dioxide, total [Moles /volume] in Central venous bloodOrdered By: Timmy Floyd on 04-21-2025 CO2 [Moles/Vol] 23.7 mmol/L 21.0-32.0 [facility] Chloride assayOrdered By: Nadya Floyd on 04-21-2025 Chloride [Moles/Vol] 103 mmol/L 98-108 [facility] Glomerular filtration rate ( GFR) estimation/1.73 sq m using serum, plasma, or whole bOrdered By: Timmy Floyd on 04-21-2025 GFR/1.73 sq M.predicted among non-blacks MDRD (S/P/Bld) [Vol rate/Area] 62 mL/min/{1.73_m2} >60 [facility] Comment on above: mL/min/1.73m2 CKD-EP I Creatinine Equation (2020) Potassium measurement (mass/ volume)Ordered By: Timmy Floyd on 04-21-2025 Potassium (Unsp spec) [Mass/Vol] 4.7 mmol/L 3.3-5.1 [facility] Serum creatinine measurement (mass/volume)Ordered By: Timmy Floyd on 04-21-2025 Creatinine [Mass/Vol] 1.24 mg/dL High 0.70-1.20 [facility] Serum glucose measurement (m ass/volume)Ordered By: Timmy Floyd on 04-21-2025 Glucose [Mass/Vol] 128 mg/dL High 70-99 [facility] Serum or plasma calcium jhon urement (mass/volume)Ordered By: Timmy Floyd on 04-21-2025 Calcium [Mass/Vol] 9.8 mg/dL 7.6-11.0 [facility] Serum or plasma urea nitroge n measurement (mass/volume)Ordered By: Timmy Floyd on 04-21-2025 Urea nitrogen [Mass/Vol] 34 mg/dL High 4-19 [facility] Sodium levelOrdered By: Geoff Floyd on 04-21-2025 Sodium [Moles/Vol] 136 mmol/L 133-145 [facility] Vitamin D,25 Hydroxyon 04-21 Vitamin D 25-OH 54.3 ng/mL Normal 30-100 [facility] Comment on above: Result Comment: Yolande min D StatusDeficiency: <20 ng/mL (50nmol/L)Insufficiency: 20-30 ng/mL (50-75 nmol/L)Sufficiency: 30-100 ng/mL (75-250 nmol/L)Toxicity: >100 ng/mL (>250 nmol/L) Performed By: #### L 500.2500, L506.1001 ####[facility] [address] [place], [address] CREATININE FINGERSTICKon Creatinine [Mass/Vol] 1.2 mg/dL Normal 0.70-1.30 [facility] Comment on above: Performed By: #### L 9100.0200 ####[facility] [address] [place], [address] EGFR WB > 60.0000 Normal >60 [facility] Comment on above: Performed By: #### L 9100.0200 ####[facility] [address] [place], [address] CT Chest, Abd, Pel w/Contras ton 03-27-2025 CT Chest, Abd, Pel w/Contrast Normal [facility] Creatinine measurement at be dsideOrdered By: Miles Armendariz on 03-27-2025 Creatinine [Mass/Vol] 1.2 mg/dL 0.70-1.30 [facility] EGFROrdered By: Miles Armendariz on 03-27-2025 GFR/1.73 sq M.predicted among non-blacks MDRD (S/P/Bld) [Vol rate/Area] mL/min/{1.73_m2} >60 [facility] Oncology Visit Reporton 03-12 Oncology Visit Report Normal [facility] Soft Tissue Neck WITH Contra ston 03-27-2025 Soft Tissue Neck WITH Contrast Normal [facility] Complement C3on 03-24-2025 COMP C3 155 mg/dL Normal 82-167 [facility] Comment on above: Performed By: #### L 3100.5800, L3130.0010, L501.1400, L100.0100, L504.2610, L3100.5600, L3100.5700, L3100.3425, L101.9900 ####[facility] [address] [place], [place], [id number] Complement C4on 03-24-2025 COMPLEMENT, C4 21 mg/dL Normal 12-38 [facility] Comment on above: Performed By: #### L 3100.5800, L3130.0010, L501.1400, L100.0100, L504.2610, L3100.5600, L3100.5700, L3100.3425, L101.9900 ####[facility] [address] [place], [place], [phone] Complement CH50on 03-24-2025 COMPLEMENT,CH50 > 60 Normal >41 [facility] Comment on above: Result Comment: Age [...] to determine out of range values.Performed at: [facility] [address] [id number] Director: Minh Maradiaga PhD, Phone: [phone] Performed By: #### L 3100.5800, L3130.0010, L501.1400, L100.0100, L504.2610, L3100.5600, L3100.5700, L3100.3425, L101.9900 ####[facility] [address] [place], [place], [phone]) PENNY + Protein Elect, Serumon 03-24-2025 Albumin [Mass/Vol] 3.6 g/dL Normal 2.9-4.4 [facility] Comment on above: Order Comment: Y Performed By: #### L 3100.5800, L3130.0010, L501.1400, L100.0100, L504.2610, L3100.5600, L3100.5700, L3100.3425, L101.9900 ####[facility] [address] [place], [address] Albumin/Globulin [Mass ratio] 1.0 {ratio} Normal 0.7-1.7 [facility] Comment on above: Order Comment: Y Performed By: #### L 3100.5800, L3130.0010, L501.1400, L100.0100, L504.2610, L3100.5600, L3100.5700, L3100.3425, L101.9900 ####[facility] [address] [place], [address] TDENR-2-JBRN 0.2 g/dL Normal 0.0-0.4 [facility] Comment on above: Order Comment: Y Performed By: #### L 3100.5800, L3130.0010, L501.1400, L100.0100, L504.2610, L3100.5600, L3100.5700, L3100.3425, L101.9900 ####[facility] [address] [place], [address] MXGJO-6-UUVJ 0.9 g/dL Normal 0.4-1.0 [facility] Comment on above: Order Comment: Y Performed By: #### L 3100.5800, L3130.0010, L501.1400, L100.0100, L504.2610, L3100.5600, L3100.5700, L3100.3425, L101.9900 ####[facility] [address] [place], [place], [phone](790) BETA GLOBULIN 0.9 g/dL Normal 0.7-1.3 [facility] Comment on above: Order Comment: Y Performed By: #### L 3100.5800, L3130.0010, L501.1400, L100.0100, L504.2610, L3100.5600, L3100.5700, L3100.3425, L101.9900 ####[facility] [address] [place], [address](335) GAMMA GLOBULIN 1.6 g/dL Normal 0.4-1.8 [facility] Comment on above: Order Comment: Y Performed By: #### L 3100.5800, L3130.0010, L501.1400, L100.0100, L504.2610, L3100.5600, L3100.5700, L3100.3425, L101.9900 ####[facility] [address] [place], [address] Globulin (S) [Mass/Vol] 3.7 g/dL Normal 2.2-3.9 [facility] Comment on above: Order Comment: Y Performed By: #### L 3100.5800, L3130.0010, L501.1400, L100.0100, L504.2610, L3100.5600, L3100.5700, L3100.3425, L101.9900 ####[facility] [address] [place], [address] PENNY RESULT,S Comment Abnormal . [facility] Comment on above: Order Comment: Y Result Comment: Immu nofixation shows IgG monoclonal protein with lambdalight chain specificity.IGA APPEARS ASYMMETRICAL Performed By: #### L 3100.5800, L3130.0010, L501.1400, L100.0100, L504.2610, L3100.5600, L3100.5700, L3100.3425, L101.9900 ####[facility] [address] [place], [address] IMMUNOGLOB A QN 69 mg/dL Normal 61-437 [facility] Comment on above: Order Comment: Y Performed By: #### L 3100.5800, L3130.0010, L501.1400, L100.0100, L504.2610, L3100.5600, L3100.5700, L3100.3425, L101.9900 ####[facility] [address] [place], [place], [phone](583) IMMUNOGLOB G QN 1857 mg/dL High 603-1613 [facility] Comment on above: Order Comment: Y Performed By: #### L 3100.5800, L3130.0010, L501.1400, L100.0100, L504.2610, L3100.5600, L3100.5700, L3100.3425, L101.9900 ####[facility] [address] [place], [place], [address] IMMUNOGLOB M QN 36 mg/dL Normal 15-143 [facility] Comment on above: Order Comment: Y Performed By: #### L 3100.5800, L3130.0010, L501.1400, L100.0100, L504.2610, L3100.5600, L3100.5700, L3100.3425, L101.9900 ####[facility] [address] [place], [address] M-Rudolph 1.3 g/dL Abnormal Not Observed [facility] Comment on above: Order Comment: Y Performed By: #### L 3100.5800, L3130.0010, L501.1400, L100.0100, L504.2610, L3100.5600, L3100.5700, L3100.3425, L101.9900 ####[facility] [address] [place], [place], [phone] NOTE: Comment Normal . [facility] Comment on above: Order Comment: Y Result Comment: Prot ein electrophoresis scan will follow via computer,mail, or church supervisor delivery. Performed By: #### L 3100.5800, L3130.0010, L501.1400, L100.0100, L504.2610, L3100.5600, L3100.5700, L3100.3425, L101.9900 ####[facility] [address] [place], [place], [phone] Protein [Mass/Vol] 7.3 g/dL Normal 6.0-8.5 [facility] Comment on above: Order Comment: Y Performed By: #### L 3100.5800, L3130.0010, L501.1400, L100.0100, L504.2610, L3100.5600, L3100.5700, L3100.3425, L101.9900 ####[facility] [address] [place], [place], [phone] [place] Lambda Light Chainson 03-24-2025 FR KAPPA LT CHN 18.5 mg/L Normal 3.3-19.4 [facility] Comment on above: Performed By: #### L 3100.5800, L3130.0010, L501.1400, L100.0100, L504.2610, L3100.5600, L3100.5700, L3100.3425, L101.9900 ####[facility] [address] [place], [place], [phone] FR LAMBDA LT CH 348.4 mg/L Abnormal 5.7-26.3 [facility] Comment on above: Performed By: #### L 3100.5800, L3130.0010, L501.1400, L100.0100, L504.2610, L3100.5600, L3100.5700, L3100.3425, L101.9900 ####[facility] [address] [place], [address] KAPPA/LAMBDA % 0.05 Abnormal 0.26-1.65 [facility] Comment on above: Performed By: #### L 3100.5800, L3130.0010, L501.1400, L100.0100, L504.2610, L3100.5600, L3100.5700, L3100.3425, L101.9900 ####[facility] [address] [place], [address] Absolute lymphocyte countOrd ered By: Miles Armendariz on 03-20-2025 Lymphocytes Auto (Unsp spec) [#/Vol] 2.69 10*3/uL 0.83-4.51 [facility] Absolute neutrophil countOrd ered By: Miles Armendariz on 03-20-2025 Neutrophils (Bld) [#/Vol] 4.1 10*3/uL 2.0-7.7 [facility] Albumin Elph [Mass/Vol]Order ed By: Miles Armendariz on 03-20-2025 Albumin [Mass/Vol] 3.6 g/dL 2.9-4.4 [facility] Anion gap in Serum or Plasma Ordered By: Miles Aremndariz on 03-20-2025 Anion gap [Moles/Vol] 13 mmol/L 5-15 [facility] Automated lymphocyte count a s percentage of total leukocytesOrdered By: Miles Armendariz on 03-20-2025 Lymphocytes/100 WBC Auto (Unsp spec) 31.6 % 19-41 [facility] BUN/creatinine ratioOrdered By: Miles Armendariz on 03-20-2025 Urea nitrogen/Creatinine [Mass ratio] 27.6 mg/mg High 10-20 [facility] Comment on above: Previous reported re sult: 27.7 RATIOEdited by: STEPH on 03/20/25:0909 AMENDED REPORT 03/20/25908 BUN/CRE previously reported as: 27.7 H RATIO Basophil percentageOrdered B y: Miles Armendariz on 03-20-2025 Basophils/100 WBC (Bld) 0.9 % 0-1 [facility] Bilirubin, totalOrdered By: Miles Armendariz on 03-20-2025 Bilirubin [Mass/Vol] 0.59 mg/dL 0.00-1.30 [facility] Comment on above: Previous reported re sult: 0.56 mg/dLEdited by: STEPH on 03/20/25:0909 AMENDED REPORT 03/20/25908 T BILI previously reported as: 0.56 mg/dL CBC W/Diff, Automatedon Absolute Lymph 2.69 X10 3/uL Normal 0.83-4.51 [facility] Comment on above: Performed By: #### L 3100.5800, L3130.0010, L501.1400, L100.0100, L504.2610, L3100.5600, L3100.5700, L3100.3425, L101.9900 ####[facility] [address] [place], [address] Absolute Neut 4.1 X10 3/uL Normal 2.0-7.7 [facility] Comment on above: Performed By: #### L 3100.5800, L3130.0010, L501.1400, L100.0100, L504.2610, L3100.5600, L3100.5700, L3100.3425, L101.9900 ####[facility] [address] [place], [address] Basophils/100 WBC (Bld) 0.9 % Normal 0-1 [facility] Comment on above: Performed By: #### L 3100.5800, L3130.0010, L501.1400, L100.0100, L504.2610, L3100.5600, L3100.5700, L3100.3425, L101.9900 ####[facility] [address] [place], [address] Eosinophils/100 WBC (Bld) 10.3 % High 0-5 [facility] Comment on above: Performed By: #### L 3100.5800, L3130.0010, L501.1400, L100.0100, L504.2610, L3100.5600, L3100.5700, L3100.3425, L101.9900 ####[facility] [address] [place], [address] Erythrocyte distribution width (RBC) [Ratio] 12.8 % Normal 11.6-14.6 [facility] Comment on above: Performed By: #### L 3100.5800, L3130.0010, L501.1400, L100.0100, L504.2610, L3100.5600, L3100.5700, L3100.3425, L101.9900 ####[facility] [address] [facility] [place], [address]([phone] Hematocrit (Bld) [Volume fraction] 37.6 % Low 40-54 [facility] Comment on above: Performed By: #### L 3100.5800, L3130.0010, L501.1400, L100.0100, L504.2610, L3100.5600, L3100.5700, L3100.3425, L101.9900 ####[facility] [address] [facility] [place], [address] Hemoglobin (Bld) [Mass/Vol] 12.7 g/dL Low 13.0-16. 5 [facility] Comment on above: Performed By: #### L 3100.5800, L3130.0010, L501.1400, L100.0100, L504.2610, L3100.5600, L3100.5700, L3100.3425, L101.9900 ####[facility] [address] [facility] [place], [address]([phone] IG% 0.500 Normal 0.0-0.9 [facility] Comment on above: Result Comment: IG% - Immature Granulocytes (promyelocytes, myelocytes andmetamyelocytes) > 1% indicates that a LEFT SHIFT is Present. Performed By: #### L 3100.5800, L3130.0010, L501.1400, L100.0100, L504.2610, L3100.5600, L3100.5700, L3100.3425, L101.9900 ####[facility] [address] [place], [address] Lymphocytes/100 WBC (Bld) 31.6 % Normal 19-41 [facility] Comment on above: Performed By: #### L 3100.5800, L3130.0010, L501.1400, L100.0100, L504.2610, L3100.5600, L3100.5700, L3100.3425, L101.9900 ####[facility] [address] [place], [address] MCH (RBC) [Entitic mass] 31.4 pg Normal 27.0-32.0 [facility] Comment on above: Performed By: #### L 3100.5800, L3130.0010, L501.1400, L100.0100, L504.2610, L3100.5600, L3100.5700, L3100.3425, L101.9900 ####[facility] [address] [place], [address] MCHC (RBC) [Mass/Vol] 33.8 g/dL Normal 32-36 [facility] Comment on above: Performed By: #### L 3100.5800, L3130.0010, L501.1400, L100.0100, L504.2610, L3100.5600, L3100.5700, L3100.3425, L101.9900 ####[facility] [address] [place], [address] MCV (RBC) [Entitic vol] 93.1 fL Normal 80-94 [facility] Comment on above: Performed By: #### L 3100.5800, L3130.0010, L501.1400, L100.0100, L504.2610, L3100.5600, L3100.5700, L3100.3425, L101.9900 ####[facility] [address] [place], [address] Monocytes/100 WBC (Bld) 8.2 % Normal 0-10 [facility] Comment on above: Performed By: #### L 3100.5800, L3130.0010, L501.1400, L100.0100, L504.2610, L3100.5600, L3100.5700, L3100.3425, L101.9900 ####[facility] [address] [place], [address] Neutrophils/100 WBC (Bld) 48.5 % Normal 47-70 [facility] Comment on above: Performed By: #### L 3100.5800, L3130.0010, L501.1400, L100.0100, L504.2610, L3100.5600, L3100.5700, L3100.3425, L101.9900 ####[facility] [address] [place], [address] Nucleated RBC (Bld) [#/Vol] 0 10*3/uL Normal 0-5 [facility] Comment on above: Performed By: #### L 3100.5800, L3130.0010, L501.1400, L100.0100, L504.2610, L3100.5600, L3100.5700, L3100.3425, L101.9900 ####[facility] [address] [place], [address] Platelet mean volume (Bld) [Entitic vol] 9.3 fL Normal 6.2-12.0 [facility] Comment on above: Performed By: #### L 3100.5800, L3130.0010, L501.1400, L100.0100, L504.2610, L3100.5600, L3100.5700, L3100.3425, L101.9900 ####[facility] [address] [place], [address] Platelets (Bld) [#/Vol] 449 10*3/uL Normal 150-450 [facility] Comment on above: Performed By: #### L 3100.5800, L3130.0010, L501.1400, L100.0100, L504.2610, L3100.5600, L3100.5700, L3100.3425, L101.9900 ####[facility] [address] [place], [address] RBC (Bld) [#/Vol] 4.04 10*6/uL Low 4.6-6.2 [facility] Comment on above: Performed By: #### L 3100.5800, L3130.0010, L501.1400, L100.0100, L504.2610, L3100.5600, L3100.5700, L3100.3425, L101.9900 ####[facility] [address] [place], [address] RDW SD 43.7 fl Normal 35.1-43.9 [facility] Comment on above: Performed By: #### L 3100.5800, L3130.0010, L501.1400, L100.0100, L504.2610, L3100.5600, L3100.5700, L3100.3425, L101.9900 ####[facility] [address] [place], [address] WBC (Bld) [#/Vol] 8.5 10*3/uL Normal 4.4-11.0 [facility] Comment on above: Performed By: #### L 3100.5800, L3130.0010, L501.1400, L100.0100, L504.2610, L3100.5600, L3100.5700, L3100.3425, L101.9900 ####[facility] [address] [place], [address] CRPon 03-20-2025 C-REACTIVE PROT 3.09 mg/L High 0.0-3.0 [facility] Comment on above: Performed By: #### L 501.6710, L500.4050, L503.0106 ####[facility] [address] [place], [address] Carbon dioxide, total [Moles /volume] in Central venous bloodOrdered By: Miles Armendariz on 03-20-2025 CO2 [Moles/Vol] 23.0 mmol/L 21.0-32.0 [facility] Comment on above: Previous reported re sult: 23.7 mmol/LEdited by: STEPH on 03/20/25:908 AMENDED REPORT 03/20/25908 CO2 previously reported as: 23.7 mmol/L Chloride assayOrdered By: Maude Armendariz on 03-20-2025 Chloride [Moles/Vol] 102 mmol/L 98-108 [facility] Comprehensive Metabolic Prof ilon 03-20-2025 Albumin [Mass/Vol] 4.2 g/dL Normal 3.4-4.8 [facility] Comment on above: Result Comment: AMENDED REPORT 03/20/25908 ALB previously reported as: 4.3 g/dL Performed By: #### L 501.6710, L500.4050, L503.0106 ####[facility] [address] [place], [address] Albumin/Globulin [Mass ratio] 1.2 {ratio} Normal 0.9-2.4 [facility] Comment on above: Performed By: #### L 501.6710, L500.4050, L503.0106 ####[facility] [address] [place], [address] ALK PHOS 88 U/L Normal 40-129 [facility] Comment on above: Performed By: #### L 501.6710, L500.4050, L503.0106 ####[facility] [address] [place], [address] ALT [Catalytic activity/Vol] 16 U/L Normal <=46 [facility] Comment on above: Performed By: #### L 501.6710, L500.4050, L503.0106 ####[facility] [address] [place], [address] AST [Catalytic activity/Vol] 21 U/L Normal <=37 [facility] Comment on above: Result Comment: AMENDED REPORT 03/20/25908 AST previously reported as: 19 U/L Performed By: #### L 501.6710, L500.4050, L503.0106 ####[facility] [address] [place], [address] Bilirubin [Mass/Vol] 0.59 mg/dL Normal 0.00-1.30 [facility] Comment on above: Result Comment: AMENDED REPORT 03/20/25908 T BILI previously reported as: 0.56 mg/dL Performed By: #### L 501.6710, L500.4050, L503.0106 ####[facility] [address] [place], [address] BUN/CRE 27.6 RATIO High 10-20 [facility] Comment on above: Result Comment: AMENDED REPORT 03/20/25908 BUN/CRE previously reported as: 27.7 H RATIO Performed By: #### L 501.6710, L500.4050, L503.0106 ####[facility] [address] [place], [address] Calcium [Mass/Vol] 9.8 mg/dL Normal 7.6-11.0 [facility] Comment on above: Result Comment: AMENDED REPORT 03/20/25908 CA previously reported as: 9.7 mg/dL Performed By: #### L 501.6710, L500.4050, L503.0106 ####[facility] [address] [place], [address] Chloride [Moles/Vol] 102 mmol/L Normal 98-108 [facility] Comment on above: Performed By: #### L 501.6710, L500.4050, L503.0106 ####[facility] [address] [place], [address] CO2 [Moles/Vol] 23.0 mmol/L Normal 21.0-32.0 [facility] Comment on above: Result Comment: AMENDED REPORT 03/20/25908 CO2 previously reported as: 23.7 mmol/L Performed By: #### L 501.6710, L500.4050, L503.0106 ####[facility] [address] [place], [address] Creatinine [Mass/Vol] 1.26 mg/dL High 0.70-1.20 [facility] Comment on above: Result Comment: AMENDED REPORT 03/20/25908 CREAT,SERUM previously reported as: 1.29 H mg/dL Performed By: #### L 501.6710, L500.4050, L503.0106 ####[facility] [address] [place], [address] GAP 13 Normal 5-15 [facility] Comment on above: Performed By: #### L 501.6710, L500.4050, L503.0106 ####[facility] [address] [place], [address] Globulin (S) [Mass/Vol] 3.5 g/dL Normal 2.2-4.2 [facility] Comment on above: Result Comment: AMENDED REPORT 03/20/25908 GLOB previously reported as: 3.6 g/dL Performed By: #### L 501.6710, L500.4050, L503.0106 ####[facility] [address] [place], [address] Glucose [Mass/Vol] 157 mg/dL High 70-99 [facility] Comment on above: Result Comment: AMENDED REPORT 03/20/25908 GLU previously reported as: 161 H mg/dL Performed By: #### L 501.6710, L500.4050, L503.0106 ####[facility] [address] [place], [address] Potassium [Moles/Vol] 4.7 mmol/L Normal 3.3-5.1 [facility] Comment on above: Performed By: #### L 501.6710, L500.4050, L503.0106 ####[facility] [address] [place], [address] Sodium [Moles/Vol] 138 mmol/L Normal 133-145 [facility] Comment on above: Result Comment: AMENDED REPORT 03/20/25908 NA previously reported as: 137 mmol/L Performed By: #### L 501.6710, L500.4050, L503.0106 ####[facility] [address] [place], [address] T PROT 7.8 g/dL Normal 5.9-8.4 [facility] Comment on above: Result Comment: AMENDED REPORT 03/20/25908 T PROT previously reported as: 7.9 g/dL Performed By: #### L 501.6710, L500.4050, L503.0106 ####[facility] [address] [place], [address] Urea nitrogen [Mass/Vol] 35 mg/dL High 4-19 [facility] Comment on above: Result Comment: AMENDED REPORT 03/20/25908 BUN previously reported as: 36 H mg/dL Performed By: #### L 501.6710, L500.4050, L503.0106 ####[facility] [address] [place], [place], [address] Eosinophil percentageOrdered By: Miles Armendariz on 03-20-2025 Eosinophils/100 WBC (Bld) 10.3 % High 0-5 [facility] Erythrocyte Sed Rateon 03-20 SED RATE 15 mm/hr Normal 0-20 [facility] Comment on above: Performed By: #### L 3100.5800, L3130.0010, L501.1400, L100.0100, L504.2610, L3100.5600, L3100.5700, L3100.3425, L101.9900 ####[facility] [id number] [place], [place], [id number] Erythrocyte distribution wid th ratioOrdered By: Miles Armendariz on 03-20-2025 Erythrocyte distribution width (RBC) [Ratio] 12.8 % 11.6-14.6 [facility] Erythrocyte distribution wid th standard deviationOrdered By: Miles Armendariz on 03-20-2025 Erythrocyte distribution width (RBC) [Ratio] 43.7 fl 35.1-43.9 [facility] Erythrocyte sedimentation ra teOrdered By: Miles Armendariz on 03-20-2025 ESR (Bld) [Velocity] 15 mm/h 0-20 [facility] Glomerular filtration rate ( GFR) estimation/1.73 sq m using serum, plasma, or whole bOrdered By: Miles Armendariz on 03-20-2025 GFR/1.73 sq M.predicted among non-blacks MDRD (S/P/Bld) [Vol rate/Area] 59 mL/min/{1.73_m2} Low >60 [facility] Comment on above: mL/min/1.73m2 CKD-EP I Creatinine Equation (2020) Hematocrit Auto (Bld) [Volum e fraction]Ordered By: Miles Armendariz on 03-20-2025 Hematocrit (Bld) [Volume fraction] 37.6 % Low 40-54 [facility] Hemoglobin measurementOrdere d By: Miles Armendariz on 03-20-2025 Hemoglobin (Bld) [Mass/Vol] 12.7 g/dL Low 13.0-16. 5 [facility] Immature granulocytes/100 WB C Auto (Bld)Ordered By: Miles Armendariz on 03-20-2025 Immature granulocytes/100 WBC (Bld) 0.500 % 0.0-0.9 [facility] Comment on above: IG% - Immature Granu locytes (promyelocytes, myelocytes and metamyelocytes) > 1% indicates that a LEFT SHIFT is Present. Interpretation of serum or p lasma protein pattern by immunofixation (narrative resultOrdered By: Miles Armendariz on 03-20-2025 Protein Fractions Immunofixation Yony [Interp] 1.3 g/dL High Not Observed [facility] LDHon 03-20-2025 LDH 152 U/L Normal 87-241 [facility] Comment on above: Order Comment: 1 Performed By: #### L 3100.5800, L3130.0010, L501.1400, L100.0100, L504.2610, L3100.5600, L3100.5700, L3100.3425, L101.9900 ####[facility] [id number] [place], [address] Laboratory - Chemistry and C hemistry - challengeOrdered By: Miles Armendariz on 03-20-2025 AST [Catalytic activity/Vol] 21 U/L <38 [facility] Comment on above: Previous reported re sult: 19 U/LEdited by: AUTOINAndreina on 03/20/25:0909 AMENDED REPORT 03/20/25 0909 AST previously reported as: 19 U/L Lactate dehydrogenase (LDH) measurementOrdered By: Miles Armendariz on 03-20-2025 LDH [Catalytic activity/Vol] 152 U/L 87-241 [facility] MCV (mean corpuscular volume ) determinationOrdered By: Miles Armendariz on 03-20-2025 MCV (RBC) [Entitic vol] 93.1 fL 80-94 [facility] Mean corpuscular hemoglobin (MCH) determinationOrdered By: Miles Armendariz on 03-20-2025 MCH (RBC) [Entitic mass] 31.4 pg 27.0-32.0 [facility] Mean corpuscular hemoglobin concentration (MCHC) determinationOrdered By: Miles Armendariz on 03-20-2025 MCHC (RBC) [Mass/Vol] 33.8 g/dL 32-36 [facility] Mean platelet volume determi nationOrdered By: Miles Armendariz on 03-20-2025 Platelet mean volume (Bld) [Entitic vol] 9.3 fL 6.2-12.0 [facility] Monocyte percentageOrdered B y: Miles Armendariz on 03-20-2025 Monocytes/100 WBC (Bld) 8.2 % 0-10 [facility] Neutrophil percentageOrdered By: Miles Armendariz on 03-20-2025 Neutrophils/100 WBC (Bld) 48.5 % 47-70 [facility] No Panel InformationOrdered By: Miles Armendariz on 03-20-2025 Addendum Document Comment . [facility] Comment on above: Protein electrophore sis scan will follow via computer,mail, or church supervisor delivery. Nucleated red blood cell per centageOrdered By: Miles Armendariz on 03-20-2025 Nucleated RBC/100 WBC (Bld) [Ratio] 0 % 0-5 [facility] Platelet countOrdered By: Maude Armendariz on 03-20-2025 Platelets (Bld) [#/Vol] 449 10*3/uL 150-450 [facility] Potassium measurement (mass/ volume)Ordered By: Miles Armendariz on 03-20-2025 Potassium (Unsp spec) [Mass/Vol] 4.7 mmol/L 3.3-5.1 [facility] RBC Auto (Bld) [#/Vol]Ordere d By: Miles Armendariz on 03-20-2025 RBC (Bld) [#/Vol] 4.04 10*6/uL Low 4.6-6.2 [facility] Serum creatinine measurement (mass/volume)Ordered By: Miles Armendariz on 03-20-2025 Creatinine [Mass/Vol] 1.26 mg/dL High 0.70-1.20 [facility] Comment on above: Previous reported re sult: 1.29 mg/dLEdited by: AUTOINS on 03/20/25:0909 AMENDED REPORT 03/20/25908 CREAT,SERUM previously reported as: 1.29 H mg/dL Serum globulin measurement ( mass/volume)Ordered By: Miles Armendariz on 03-20-2025 Globulin (S) [Mass/Vol] 3.7 g/dL 2.2-3.9 [facility] Serum glucose measurement (m ass/volume)Ordered By: Miles Armendariz on 03-20-2025 Glucose [Mass/Vol] 157 mg/dL High 70-99 [facility] Comment on above: Previous reported re sult: 161 mg/dLEdited by: AUTOINS on 03/20/25:0909 AMENDED REPORT 03/20/25908 GLU previously reported as: 161 H mg/dL Serum immunoglobulin kappa l ight chains/immunoglobulin lambda light chains mass ratioOrdered By: Miles Armendariz on 03-20-2025 Immunoglobulin light chains.kappa/Immunoglobulin light chains.lambda (S) [Mass ratio] 0.05 Low 0.26-1.65 [facility] Serum or plasma C reactive p rotein measurement (mass/volume)Ordered By: Miles Armendariz on 03-20-2025 CRP [Mass/Vol] 3.09 mg/L High 0.0-3.0 [facility] Serum or plasma IgA measurem ent (mass/volume)Ordered By: Miles Armendariz on 03-20-2025 IgA [Mass/Vol] 69 mg/dL 61-437 [facility] Serum or plasma IgG measurem ent (mass/volume)Ordered By: Miles Armendariz on 03-20-2025 IgG [Mass/Vol] 1857 mg/dL High 603-1613 [facility] Serum or plasma alanine delgado otransferase (ALT) measurementOrdered By: Miles Armendariz on 03-20-2025 ALT [Catalytic activity/Vol] 16 U/L <47 [facility] Serum or plasma albumin jhon urement (mass/volume)Ordered By: Miles Armendariz on 03-20-2025 Albumin [Mass/Vol] 4.2 g/dL 3.4-4.8 [facility] Comment on above: Previous reported re sult: 4.3 g/dLEdited by: AUTOINS on 03/20/25:0909 AMENDED REPORT 03/20/25908 ALB previously reported as: 4.3 g/dL Serum or plasma albumin/glob ulin mass ratioOrdered By: Miles Armendarzi on 03-20-2025 Albumin/Globulin [Mass ratio] 1.2 {ratio} 0.9-2.4 [facility] Serum or plasma alkaline joe sphatase measurementOrdered By: Miles Armendariz on 03-20-2025 ALP [Catalytic activity/Vol] 88 U/L 40-129 [facility] Serum or plasma alpha 1 glob ulin measurement by electrophoresis (mass/volume)Ordered By: Miles Armendariz on 03-20-2025 Alpha 1 globulin Elph [Mass/Vol] 0.2 g/dL 0.0-0.4 [facility] Alpha 1 globulin Elph [Mass/Vol] 0.9 g/dL 0.4-1.0 [facility] Serum or plasma beta globuli n measurement by electrophoresis (mass/volume)Ordered By: Miles Armendariz on 03-20-2025 Beta globulin Elph [Mass/Vol] 0.9 g/dL 0.7-1.3 [facility] Serum or plasma calcium jhon urement (mass/volume)Ordered By: Miles Armendariz on 03-20-2025 Calcium [Mass/Vol] 9.8 mg/dL 7.6-11.0 [facility] Comment on above: Previous reported re sult: 9.7 mg/dLEdited by: STEPH on 03/20/25:0909 AMENDED REPORT 03/20/25 0909 CA previously reported as: 9.7 mg/dL Serum or plasma complement C 4 measurement (mass/volume)Ordered By: Miles Armendariz on 03-20-2025 Complement C4 [Mass/Vol] 21 mg/dL 12-38 [facility] Serum or plasma gamma globul in measurement by electrophoresis (mass/volume)Ordered By: Miles Armendariz on 03-20-2025 Gamma globulin Elph [Mass/Vol] 1.6 g/dL 0.4-1.8 [facility] Serum or plasma immunoelectr ophoresis interpretation (nominal result)Ordered By: Miles Armendariz on 03-20-2025 Interpretation IEP [Interp] Comment High . [facility] Comment on above: Immunofixation shows IgG monoclonal protein with lambdalight chain specificity.IGA APPEARS ASYMMETRICAL Serum or plasma immunoglobul in kappa light chains measurement (mass/volume)Ordered By: Miles Armendariz on 03-20-2025 Immunoglobulin light chains.kappa [Mass/Vol] 18.5 mg/L 3.3-19.4 [facility] Serum or plasma protein jhon urement (mass/volume)Ordered By: Miles Armendariz on 03-20-2025 Protein [Mass/Vol] 7.3 g/dL 6.0-8.5 [facility] Serum or plasma urea nitroge n measurement (mass/volume)Ordered By: Miles Armendariz on 03-20-2025 Urea nitrogen [Mass/Vol] 35 mg/dL High 4-19 [facility] Comment on above: Previous reported re sult: 36 mg/dLEdited by: STEPH on 03/20/25:09 AMENDED REPORT 03/20/25908 BUN previously reported as: 36 H mg/dL Serum or plasma uric acid me asurement (mass/volume)Ordered By: Miles Armendariz on 03-20-2025 Urate [Mass/Vol] 6.0 mg/dL 3.5-7.2 [facility] Comment on above: The drugs N-Acetylcy steine and Metamizole may falsely depress this assay. Sodium levelOrdered By: Robel Armendariz on 03-20-2025 Sodium [Moles/Vol] 138 mmol/L 133-145 [facility] Comment on above: Previous reported re sult: 137 mmol/LEdited by: STEPH on 03/20/25:0909 AMENDED REPORT 03/20/25908 NA previously reported as: 137 mmol/L Total proteinOrdered By: To Armendariz on 03-20-2025 Protein [Mass/Vol] 7.8 g/dL 5.9-8.4 [facility] Comment on above: Previous reported re sult: 7.9 g/dLEdited by: STEPH on 03/20/25:0909 AMENDED REPORT 03/20/25908 T PROT previously reported as: 7.9 g/dL Uric Acidon 03-20-2025 URIC 6.0 mg/dL Normal 3.5-7.2 [facility] Comment on above: Result Comment: The drugs N-Acetylcysteine and Metamizole may falselydepress this assay. Performed By: #### L 3100.5800, L3130.0010, L501.1400, L100.0100, L504.2610, L3100.5600, L3100.5700, L3100.3425, L101.9900 ####[facility] [address] [place], [address] Vitamin B12on 03-20-2025 Cobalamin (Vitamin B12) [Mass/Vol] 388 pg/mL Normal 180-914 [facility] Comment on above: Performed By: #### L 501.6710, L500.4050, L503.0106 ####[facility] [address] [facility] [place], [place], [id number] Vitamin B12 ser/plasOrdered By: Miles Armendariz on 03-20-2025 Cobalamin (Vitamin B12) [Mass/Vol] 388 pg/mL 180-914 [facility] White blood cell (WBC) count Ordered By: Miles Armendariz on 03-20-2025 WBC (Bld) [#/Vol] 8.5 10*3/uL 4.4-11.0 [facility] Internal Medicine Office Vis iton 03-13-2025 Internal Medicine Office Visit Normal [facility] Bone Survey Comp(Axial Appen d)on 02-09-2025 Bone Survey Comp(Axial Append) Normal [facility] Oncology Visit Reporton 12-12 Oncology Visit Report Normal [facility] Internal Medicine Office Vis iton 01-02-2025 Internal Medicine Office Visit Normal [facility] Laboratory - Hematology and Cell countsOrdered By: Timmy Floyd on 01-02-2025 HbA1c (Bld) [Mass fraction] 6.7 % High 4.2-6.3 [facility] Bone density reportOrdered B y: Angel Torres on 12-29-2024 Study report Skeletal system DXA [facility] Imaging Services [address] [place], [place] [id number] Dexa Bone Density Study MR#: [id number] Acct: [id number] Name: JOSE HATHAWAY Rep #: [id number] : 1950 M 74 From: Azam Torres MD PCP: Dr. Timmy Floyd MD Status: R EG CLI Study:Dexa Bone Density Study Date of Exam: 12/29/24 Exam# [id number] Ordering Dr: Nathanael Jackson PA PROCEDURE: DEXA [...] with a low fracture risk. Reading Location: [facility]-IR-1 CC: Dr. Timmy Floyd MD; SUJATA Alvarenga ~ Supervisor [employer] Department: Signed [facility] Dexa Bone Density Studyon Dexa Bone Density Study Normal [facility] Celiac Disease Profileon ENDOMYSIAL IGA Negative Normal Negative [facility] Comment on above: Performed By: #### L 504.2610, L100.9950, L100.0100, L503.6550, L503.6150, L3410.2400, L3100.3425 ####[facility] [address] [place], [place], [id number]) tTG IGA <2 Normal 0-3 [facility] Comment on above: Result Comment: Nega tive 0 - 3 Weak Positive 4 - 10 Positive >10 Tissue Transglutaminase (tTG) has been identified as the endomysial antigen. Studies have demonstr- ated that endomysial IgA antibodies have over 99% specificity for gluten sensitive enteropathy. Performed By: #### L 504.2610, L100.9950, L100.0100, L503.6550, L503.6150, L3410.2400, L3100.3425 ####[facility] [address] [place], [address] PENNY + Protein Elect, Serumon 12-21-2024 Albumin [Mass/Vol] 4.0 g/dL Normal 2.9-4.4 [facility] Comment on above: Order Comment: N Performed By: #### L 504.2610, L100.9950, L100.0100, L503.6550, L503.6150, L3410.2400, L3100.3425 ####[facility] [address] [place], [address] Albumin/Globulin [Mass ratio] 1.2 {ratio} Normal 0.7-1.7 [facility] Comment on above: Order Comment: N Performed By: #### L 504.2610, L100.9950, L100.0100, L503.6550, L503.6150, L3410.2400, L3100.3425 ####[facility] [address] [place], [address] PMXQX-6-QAPD 0.2 g/dL Normal 0.0-0.4 [facility] Comment on above: Order Comment: N Performed By: #### L 504.2610, L100.9950, L100.0100, L503.6550, L503.6150, L3410.2400, L3100.3425 ####[facility] [address] [place], [address] EYZAQ-1-ZEJB 0.8 g/dL Normal 0.4-1.0 [facility] Comment on above: Order Comment: N Performed By: #### L 504.2610, L100.9950, L100.0100, L503.6550, L503.6150, L3410.2400, L3100.3425 ####[facility] [address] [place], [address] BETA GLOBULIN 0.9 g/dL Normal 0.7-1.3 [facility] Comment on above: Order Comment: N Performed By: #### L 504.2610, L100.9950, L100.0100, L503.6550, L503.6150, L3410.2400, L3100.3425 ####[facility] [address] [place], [address] GAMMA GLOBULIN 1.6 g/dL Normal 0.4-1.8 [facility] Comment on above: Order Comment: N Performed By: #### L 504.2610, L100.9950, L100.0100, L503.6550, L503.6150, L3410.2400, L3100.3425 ####[facility] [address] [place], [address] Globulin (S) [Mass/Vol] 3.6 g/dL Normal 2.2-3.9 [facility] Comment on above: Order Comment: N Performed By: #### L 504.2610, L100.9950, L100.0100, L503.6550, L503.6150, L3410.2400, L3100.3425 ####[facility] [address] [place], [address] PENNY RESULT,S Comment Abnormal . [facility] Comment on above: Order Comment: N Result Comment: Immu nofixation shows IgG monoclonal protein with lambdalight chain specificity.PENNY also shows an asymmetrical IgA suggestive of a monoclonalprotein. Performed By: #### L 504.2610, L100.9950, L100.0100, L503.6550, L503.6150, L3410.2400, L3100.3425 ####[facility] [address] [place], [address] IMMUNOGLOB A QN 68 mg/dL Normal 61-437 [facility] Comment on above: Order Comment: N Performed By: #### L 504.2610, L100.9950, L100.0100, L503.6550, L503.6150, L3410.2400, L3100.3425 ####[facility] [address] [place], [address] IMMUNOGLOB G QN 1748 mg/dL High 603-1613 [facility] Comment on above: Order Comment: N Performed By: #### L 504.2610, L100.9950, L100.0100, L503.6550, L503.6150, L3410.2400, L3100.3425 ####[facility] [address] [place], [address] IMMUNOGLOB M QN 38 mg/dL Normal 15-143 [facility] Comment on above: Order Comment: N Performed By: #### L 504.2610, L100.9950, L100.0100, L503.6550, L503.6150, L3410.2400, L3100.3425 ####[facility] [address] [place], [address] M-Rudolph 1.3 g/dL Abnormal Not Observed [facility] Comment on above: Order Comment: N Performed By: #### L 504.2610, L100.9950, L100.0100, L503.6550, L503.6150, L3410.2400, L3100.3425 ####[facility] [address] [place], [address] NOTE: Comment Normal . [facility] Comment on above: Order Comment: N Result Comment: Prot ein electrophoresis scan will follow via computer,mail, or church supervisor delivery.Performed at: [facility] [facility] [id number] Director: Minh Maradiaga PhD, Phone: [phone] Performed By: #### L 504.2610, L100.9950, L100.0100, L503.6550, L503.6150, L3410.2400, L3100.3425 ####[facility] [address] [place], [place], [id number] Protein [Mass/Vol] 7.6 g/dL Normal 6.0-8.5 [facility] Comment on above: Order Comment: N Performed By: #### L 504.2610, L100.9950, L100.0100, L503.6550, L503.6150, L3410.2400, L3100.3425 ####[facility] [address] [place], [place], [address] Internal Medicine Office Vis iton 12-21-2024 Internal Medicine Office Visit Normal [facility] Absolute lymphocyte countOrd ered By: Robert Flores on 12-16-2024 Lymphocytes Auto (Unsp spec) [#/Vol] 1.84 10*3/uL 0.83-4.51 [facility] Absolute neutrophil countOrd ered By: Robert Flores on 12-16-2024 Neutrophils (Bld) [#/Vol] 4.0 10*3/uL 2.0-7.7 [facility] Addendum DocumentOrdered By: Robert Flores on 12-16-2024 Serum Immunofixation Comments Comment . [facility] Comment on above: Protein electrophore sis scan will follow via computer,mail, or church supervisor delivery.Performed at: [employer] [place] [id number] Director: Minh Maradiaga PhD, Phone: [phone] Albumin Elph [Mass/Vol]Order ed By: Robertalda Flores on 12-16-2024 Albumin [Mass/Vol] 4.0 g/dL 2.9-4.4 [facility] Alpha 1 globulin Elph [Mass/ Vol]Ordered By: Robert Flores on 12-16-2024 Xmtwk-9-Esjdqhvlh (PENNY) 0.2 g/dL 0.0-0.4 [facility] Shuve-1-Wszukupcd (PENNY) 0.8 g/dL 0.4-1.0 [facility] Automated lymphocyte count a s percentage of total leukocytesOrdered By: Robertkathleen Flores on 12-16-2024 Lymphocytes/100 WBC Auto (Unsp spec) 26.8 % 19-41 [facility] Basophil percentageOrdered B y: Robert Flores on 12-16-2024 Basophils/100 WBC (Bld) 0.7 % 0-1 [facility] Beta globulin Elph [Mass/Vol ]Ordered By: Robert Flores on 12-16-2024 Beta-Globulins (PENNY) 0.9 g/dL 0.7-1.3 [facility] CBC W/Diff, Automatedon Absolute Lymph 1.84 X10 3/uL Normal 0.83-4.51 [facility] Comment on above: Performed By: #### L 504.2610, L100.9950, L100.0100, L503.6550, L503.6150, L3410.2400, L3100.3425 ####[facility] [address] [place], [address] Absolute Neut 4.0 X10 3/uL Normal 2.0-7.7 [facility] Comment on above: Performed By: #### L 504.2610, L100.9950, L100.0100, L503.6550, L503.6150, L3410.2400, L3100.3425 ####[facility] [address] [place], [address] Basophils/100 WBC (Bld) 0.7 % Normal 0-1 [facility] Comment on above: Performed By: #### L 504.2610, L100.9950, L100.0100, L503.6550, L503.6150, L3410.2400, L3100.3425 ####[facility] [address] [place], [address] Eosinophils/100 WBC (Bld) 6.0 % High 0-5 [facility] Comment on above: Performed By: #### L 504.2610, L100.9950, L100.0100, L503.6550, L503.6150, L3410.2400, L3100.3425 ####[facility] [address] [place], [address] Erythrocyte distribution width (RBC) [Ratio] 12.9 % Normal 11.6-14.6 [facility] Comment on above: Performed By: #### L 504.2610, L100.9950, L100.0100, L503.6550, L503.6150, L3410.2400, L3100.3425 ####[facility] [address] [place], [address] Hematocrit (Bld) [Volume fraction] 41.2 % Normal 40-54 [facility] Comment on above: Performed By: #### L 504.2610, L100.9950, L100.0100, L503.6550, L503.6150, L3410.2400, L3100.3425 ####[facility] [address] [place], [address] Hemoglobin (Bld) [Mass/Vol] 13.7 g/dL Normal 13.0-16. 5 [facility] Comment on above: Performed By: #### L 504.2610, L100.9950, L100.0100, L503.6550, L503.6150, L3410.2400, L3100.3425 ####[facility] [address] [place], [address] IG% 0.300 Normal 0.0-0.9 [facility] Comment on above: Result Comment: IG% - Immature Granulocytes (promyelocytes, myelocytes andmetamyelocytes) > 1% indicates that a LEFT SHIFT is Present. Performed By: #### L 504.2610, L100.9950, L100.0100, L503.6550, L503.6150, L3410.2400, L3100.3425 ####[facility] [address] [place], [address] Lymphocytes/100 WBC (Bld) 26.8 % Normal 19-41 [facility] Comment on above: Performed By: #### L 504.2610, L100.9950, L100.0100, L503.6550, L503.6150, L3410.2400, L3100.3425 ####[facility] [address] [place], [address] MCH (RBC) [Entitic mass] 31.1 pg Normal 27.0-32.0 [facility] Comment on above: Performed By: #### L 504.2610, L100.9950, L100.0100, L503.6550, L503.6150, L3410.2400, L3100.3425 ####[facility] [address] [place], [address] MCHC (RBC) [Mass/Vol] 33.3 g/dL Normal 32-36 [facility] Comment on above: Performed By: #### L 504.2610, L100.9950, L100.0100, L503.6550, L503.6150, L3410.2400, L3100.3425 ####[facility] [address] [place], [address] MCV (RBC) [Entitic vol] 93.4 fL Normal 80-94 [facility] Comment on above: Performed By: #### L 504.2610, L100.9950, L100.0100, L503.6550, L503.6150, L3410.2400, L3100.3425 ####[facility] [address] [place], [address] Monocytes/100 WBC (Bld) 7.7 % Normal 0-10 [facility] Comment on above: Performed By: #### L 504.2610, L100.9950, L100.0100, L503.6550, L503.6150, L3410.2400, L3100.3425 ####[facility] [address] [place], [address] Neutrophils/100 WBC (Bld) 58.5 % Normal 47-70 [facility] Comment on above: Performed By: #### L 504.2610, L100.9950, L100.0100, L503.6550, L503.6150, L3410.2400, L3100.3425 ####[facility] [address] [place], [address] Nucleated RBC (Bld) [#/Vol] 0 10*3/uL Normal 0-5 [facility] Comment on above: Performed By: #### L 504.2610, L100.9950, L100.0100, L503.6550, L503.6150, L3410.2400, L3100.3425 ####[facility] [address] [place], [address] Platelet mean volume (Bld) [Entitic vol] 9.3 fL Normal 6.2-12.0 [facility] Comment on above: Performed By: #### L 504.2610, L100.9950, L100.0100, L503.6550, L503.6150, L3410.2400, L3100.3425 ####[facility] [address] [place], [address] Platelets (Bld) [#/Vol] 406 10*3/uL Normal 150-450 [facility] Comment on above: Performed By: #### L 504.2610, L100.9950, L100.0100, L503.6550, L503.6150, L3410.2400, L3100.3425 ####[facility] [address] [place], [address] RBC (Bld) [#/Vol] 4.41 10*6/uL Low 4.6-6.2 [facility] Comment on above: Performed By: #### L 504.2610, L100.9950, L100.0100, L503.6550, L503.6150, L3410.2400, L3100.3425 ####[facility] [address] [place], [address] RDW SD 44.2 fl High 35.1-43.9 [facility] Comment on above: Performed By: #### L 504.2610, L100.9950, L100.0100, L503.6550, L503.6150, L3410.2400, L3100.3425 ####[facility] [address] [place], [address] WBC (Bld) [#/Vol] 6.9 10*3/uL Normal 4.4-11.0 [facility] Comment on above: Performed By: #### L 504.2610, L100.9950, L100.0100, L503.6550, L503.6150, L3410.2400, L3100.3425 ####[facility] [address] [place], [address] Endomysial IgA antibody assa yOrdered By: Robert Flores on 12-16-2024 Endomysial IgA Antibody Negative Negative [facility] Eosinophil percentageOrdered By: Robert Flores on 12-16-2024 Eosinophils/100 WBC (Bld) 6.0 % High 0-5 [facility] Erythrocyte distribution wid th ratioOrdered By: Robert Flores on 12-16-2024 Erythrocyte distribution width (RBC) [Ratio] 12.9 % 11.6-14.6 [facility] Erythrocyte distribution wid th standard deviationOrdered By: Robert Flores on 12-16-2024 Erythrocyte distribution width (RBC) [Entitic vol] 44.2 fL High 35.1-43.9 [facility] Erythrocyte distribution width (RBC) [Ratio] 44.2 fl High 35.1-43.9 [facility] Ferritinon 12-16-2024 Ferritin [Mass/Vol] 124 ng/mL Normal 37-417 [facility] Comment on above: Performed By: #### L 504.2610, L100.9950, L100.0100, L503.6550, L503.6150, L3410.2400, L3100.3425 ####[facility] [address] [place], [address] Gamma globulin Elph [Mass/Vo l]Ordered By: Robert Flores on 12-16-2024 Gamma Globulins (PENNY) 1.6 g/dL 0.4-1.8 [facility] Gastroenterology Visit Repor ton 12-16-2024 Gastroenterology Visit Report Normal [facility] Hematocrit Auto (Bld) [Volum e fraction]Ordered By: Robert Flores on 12-16-2024 Hematocrit (Bld) [Volume fraction] 41.2 % 40-54 [facility] Hemoglobin (Reticulocytes) [ Entitic mass]Ordered By: Robert Flores on 12-16-2024 Reticulocyte Hemoglobin Equivalent 35.4 pg High 30-35 [facility] Hemoglobin measurementOrdere d By: Robert Flores on 12-16-2024 Hemoglobin (Bld) [Mass/Vol] 13.7 g/dL 13.0-16. 5 [facility] IgA [Mass/Vol]Ordered By: Ra katey Flores on 12-16-2024 Immunoglobulin A 68 mg/dL 61-437 [facility] IgG [Mass/Vol]Ordered By: Ra katey Flores on 12-16-2024 Immunoglobulin G 1748 mg/dL High 603-1613 [facility] Immature granulocytes/100 WB C Auto (Bld)Ordered By: Robert Flores on 12-16-2024 Immature granulocytes/100 WBC (Bld) 0.300 % 0.0-0.9 [facility] Comment on above: IG% - Immature Granu locytes (promyelocytes, myelocytes and metamyelocytes) > 1% indicates that a LEFT SHIFT is Present. Immature reticulocyte fracti onOrdered By: Robert Flores on 12-16-2024 Immature Reticulocyte Fraction 8.00 % 3.00-15.90 [facility] Immunoglobulin M measurement Ordered By: Robert Flores on 12-16-2024 Immunoglobulin M 38 mg/dL 15-143 [facility] Interpretation IEP [Interp]O rdered By: Robert Flores on 12-16-2024 Immunofixation Screen Comment High . [facility] Comment on above: Immunofixation shows IgG monoclonal protein with lambdalight chain specificity.PENNY also shows an asymmetrical IgA suggestive of a monoclonalprotein. Interpretation of serum or p lasma protein pattern by immunofixation (narrative resultOrdered By: Robert Flores on 12-16-2024 Protein Fractions Immunofixation Yony [Interp] 1.3 g/dL High Not Observed [facility] Ironon 12-16-2024 Iron [Mass/Vol] 92 ug/dL Normal 65-175 [facility] Comment on above: Performed By: #### L 504.2610, L100.9950, L100.0100, L503.6550, L503.6150, L3410.2400, L3100.3425 ####[facility] [address] [place], [address] Iron (Unsp spec) [Mass/Mass] Ordered By: Robert Flores on 12-16-2024 Iron [Mass/Vol] 92 ug/dL 65-175 [facility] Iron measurement (mass/mass) Ordered By: Robert Flores on 12-16-2024 Iron (Unsp spec) [Mass/Mass] 92 ug/dL 65-175 [facility] LDHon 12-16-2024 LDH 135 U/L Normal 87-241 [facility] Comment on above: Order Comment: 1 Performed By: #### L 504.2610, L100.9950, L100.0100, L503.6550, L503.6150, L3410.2400, L3100.3425 ####[facility] [address] [place], [address] Lactate dehydrogenase (LDH) measurementOrdered By: Robert Flores on 12-16-2024 LDH [Catalytic activity/Vol] 135 U/L 87-241 [facility] Lymphocytes Auto (Unsp spec) [#/Vol]Ordered By: Robert Flores on 12-16-2024 Lymphocytes (Bld) [#/Vol] 1.84 10*3/uL 0.83-4.5 1 [facility] Lymphocytes/100 WBC Auto (Un sp spec)Ordered By: Robert Flores on 12-16-2024 Lymphocytes/100 WBC (Bld) 26.8 % 19-41 [facility] MCV (mean corpuscular volume ) determinationOrdered By: Robert Flores on 12-16-2024 MCV (RBC) [Entitic vol] 93.4 fL 80-94 [facility] Mean corpuscular hemoglobin (MCH) determinationOrdered By: Robert Flores on 12-16-2024 MCH (RBC) [Entitic mass] 31.1 pg 27.0-32.0 [facility] Mean corpuscular hemoglobin concentration (MCHC) determinationOrdered By: Robert Flores on 12-16-2024 MCHC (RBC) [Mass/Vol] 33.3 g/dL 32-36 [facility] Mean platelet volume determi nationOrdered By: Robert Flores on 12-16-2024 Platelet mean volume (Bld) [Entitic vol] 9.3 fL 6.2-12.0 [facility] Monocyte percentageOrdered B y: Robert Flores on 12-16-2024 Monocytes/100 WBC (Bld) 7.7 % 0-10 [facility] Neutrophil percentageOrdered By: Robert Flores on 12-16-2024 Neutrophils/100 WBC (Bld) 58.5 % 47-70 [facility] No Panel InformationOrdered By: Robert Flores on 12-16-2024 Addendum Document Comment . [facility] Comment on above: Protein electrophore sis scan will follow via computer,mail, or church supervisor delivery.Performed at: [facility] [employer] [id number] Director: Minh Maradiaga PhD, Phone: [phone] Nucleated red blood cell per centageOrdered By: Robert Flores on 12-16-2024 Nucleated RBC/100 WBC (Bld) [Ratio] 0 % 0-5 [facility] Platelet countOrdered By: Ra katey Flores on 12-16-2024 Platelets (Bld) [#/Vol] 406 10*3/uL 150-450 [facility] Protein Fractions Immunofixa tion Yony [Interp]Ordered By: Robert Flores on 12-16-2024 M-Rudolph (PENNY) 1.3 g/dL High Not Observed [facility] RBC Auto (Bld) [#/Vol]Ordere d By: Robertkathleen Flores on 12-16-2024 RBC (Bld) [#/Vol] 4.41 10*6/uL Low 4.6-6.2 [facility] Retic Panelon 12-16-2024 IM RET FRACTION 8.00 Normal 3.00-15.90 [facility] Comment on above: Performed By: #### L 504.2610, L100.9950, L100.0100, L503.6550, L503.6150, L3410.2400, L3100.3425 ####[facility] [address] [place], [address] RET-HE 35.4 pg High 30-35 [facility] Comment on above: Performed By: #### L 504.2610, L100.9950, L100.0100, L503.6550, L503.6150, L3410.2400, L3100.3425 ####[facility] [address] [place], [address] Retic Count 1.04 Normal 0.5-1.5 [facility] Comment on above: Performed By: #### L 504.2610, L100.9950, L100.0100, L503.6550, L503.6150, L3410.2400, L3100.3425 ####[facility] [address] [place], [address] Reticulocyte hemoglobin equi valent (RET-He) measurementOrdered By: Robert Flores on 12-16-2024 Hemoglobin (Reticulocytes) [Entitic mass] 35.4 pg High 30-35 [facility] Reticulocytes Auto (Bld) [#/ Vol]Ordered By: Robert Flores on 12-16-2024 Reticulocyte Count 1.04 % 0.5-1.5 [facility] Reticulocytes/100 RBC (Bld) 1.04 % 0.5-1.5 [facility] Serum albumin/globulin ratio Ordered By: Robert Flores on 12-16-2024 Albumin/Globulin (PENNY) 1.2 0.7-1.7 [facility] Serum globulin measurement ( mass/volume)Ordered By: Robert Flores on 12-16-2024 Globulin (S) [Mass/Vol] 3.6 g/dL 2.2-3.9 [facility] Serum or plasma IgA measurem ent (mass/volume)Ordered By: Robert Flores on 12-16-2024 IgA [Mass/Vol] 68 mg/dL 61-437 [facility] Serum or plasma IgG measurem ent (mass/volume)Ordered By: Robert Flores on 12-16-2024 IgG [Mass/Vol] 1748 mg/dL High 603-1613 [facility] Serum or plasma alpha 1 glob ulin measurement by electrophoresis (mass/volume)Ordered By: Robert Flores on 12-16-2024 Alpha 1 globulin Elph [Mass/Vol] 0.2 g/dL 0.0-0.4 [facility] Alpha 1 globulin Elph [Mass/Vol] 0.8 g/dL 0.4-1.0 [facility] Serum or plasma beta globuli n measurement by electrophoresis (mass/volume)Ordered By: Robert Flores on 12-16-2024 Beta globulin Elph [Mass/Vol] 0.9 g/dL 0.7-1.3 [facility] Serum or plasma ferritin darrell surement (mass/volume)Ordered By: Robert Flores on 12-16-2024 Ferritin [Mass/Vol] 124 ng/mL 37-417 [facility] Serum or plasma gamma globul in measurement by electrophoresis (mass/volume)Ordered By: Robert Flores on 12-16-2024 Gamma globulin Elph [Mass/Vol] 1.6 g/dL 0.4-1.8 [facility] Serum or plasma immunoelectr ophoresis interpretation (nominal result)Ordered By: Robert Flores on 12-16-2024 Interpretation IEP [Interp] Comment High . [facility] Comment on above: Immunofixation shows IgG monoclonal protein with lambdalight chain specificity.PENNY also shows an asymmetrical IgA suggestive of a monoclonalprotein. Serum or plasma protein jhon urement (mass/volume)Ordered By: Robert Flores on 12-16-2024 Protein [Mass/Vol] 7.6 g/dL 6.0-8.5 [facility] Serum tissue transglutaminas e (tTG) IgA antibody assay (units/volume)Ordered By: Robert Flores on 12-16-2024 tTG IgA Qn (S) <2 U/mL 0-3 [facility] Comment on above: Negative 0 - 3 Weak Positive 4 - 10 Positive >10 Tissue Transglutaminase (tTG) has been identified as the endomysial antigen. Studies have demonstr- ated that endomysial IgA antibodies have over 99% specificity for gluten sensitive enteropathy. White blood cell (WBC) count Ordered By: Robert Flores on 12-16-2024 WBC (Bld) [#/Vol] 6.9 10*3/uL 4.4-11.0 [facility] tTG IgA Qn (S)Ordered By: Ra katey Flores on 12-16-2024 Tissue Transglutaminase IgA Ab <2 U/mL 0-3 [facility] Comment on above: Negative 0 - 3 Weak Positive 4 - 10 Positive >10 Tissue Transglutaminase (tTG) has been identified as the endomysial antigen. Studies have demonstr- ated that endomysial IgA antibodies have over 99% specificity for gluten sensitive enteropathy. Chest PA and Lateralon 12-01 Chest PA and Lateral Normal [facility] Internal Medicine Office Vis iton 12-01-2024 Internal Medicine Office Visit Normal [facility] Urgent Care Visit Reporton 0 11-21-2024 Urgent Care Visit Report Normal [facility] Cardiology Visit Reporton Cardiology Visit Report Normal [facility] Cardiology Visit Reporton Cardiology Visit Report Normal [facility] Cardiac Cath Diagnosticon Cardiac Cath Diagnostic Normal [facility] Basic Metabolic Profile (BMP )on 06-29-2024 BUN/CRE 23.3 RATIO High 10- [facility] Comment on above: Performed By: #### L 100.0100, L500.2500, L300.3900 ####[facility] [address] [place], [address] CA,Total 9.7 mg/dL Normal 8.5-10.1 [facility] Comment on above: Performed By: #### L 100.0100, L500.2500, L300.3900 ####[facility] [address] [place], [address] Chloride [Moles/Vol] 104 mmol/L Normal 98-107 [facility] Comment on above: Performed By: #### L 100.0100, L500.2500, L300.3900 ####[facility] [address] [place], [address] CO2 [Moles/Vol] 27.0 mmol/L Normal 21.0-32.0 [facility] Comment on above: Performed By: #### L 100.0100, L500.2500, L300.3900 ####[facility] [address] [place], [address] Creatinine [Mass/Vol] 1.29 mg/dL Normal 0.70-1.30 [facility] Comment on above: Result Comment: The validity of the calculated GFR GFRAA in patients over70 years has not been determined. Clinical correlation isessential. Performed By: #### L 100.0100, L500.2500, L300.3900 ####[facility] [address] [place], [address] EST GFR - AA 71 mL/min Normal >60 [facility] Comment on above: Result Comment: Afri can Ug[place] GFR Calc Performed By: #### L 100.0100, L500.2500, L300.3900 ####[facility] [address] [place], [address] GAP 7 Normal 5-15 [facility] Comment on above: Performed By: #### L 100.0100, L500.2500, L300.3900 ####[facility] [address] [place], [address] GFR/1.73 sq M.predicted among non-blacks MDRD (S/P/Bld) [Vol rate/Area] 58 mL/min/{1.73_m2} Low >60 [facility] Comment on above: Result Comment: Non- GFR Calc Performed By: #### L 100.0100, L500.2500, L300.3900 ####[facility] [address] [place], [address] Glucose [Mass/Vol] 115 mg/dL High 74-106 [facility] Comment on above: Result Comment: Fast ing Glucose result from 100 to 125 mg/dLsuggests IMPAIRED HOMEOSTASIS per A.D.A. criteria. Performed By: #### L 100.0100, L500.2500, L300.3900 ####[facility] [address] [place], [address] Potassium [Moles/Vol] 4.4 mmol/L Normal 3.5-5.1 [facility] Comment on above: Performed By: #### L 100.0100, L500.2500, L300.3900 ####[facility] [address] [place], [address] Sodium [Moles/Vol] 138 mmol/L Normal 136-145 [facility] Comment on above: Performed By: #### L 100.0100, L500.2500, L300.3900 ####[facility] [address] [place], [address] Urea nitrogen [Mass/Vol] 30 mg/dL High 7-18 [facility] Comment on above: Performed By: #### L 100.0100, L500.2500, L300.3900 ####[facility] [address] [place], [address] CBC W/Diff, Automatedon 06-12 Absolute Lymph 1.59 X10 3/uL Normal 0.83-4.51 [facility] Comment on above: Performed By: #### L 100.0100, L500.2500, L300.3900 ####[facility] [address] [place], [address] Absolute Neut 3.2 X10 3/uL Normal 2.0-7.7 [facility] Comment on above: Performed By: #### L 100.0100, L500.2500, L300.3900 ####[facility] [address] [place], [address] Basophils/100 WBC (Bld) 0.4 % Normal 0-1 [facility] Comment on above: Performed By: #### L 100.0100, L500.2500, L300.3900 ####[facility] [address] [place], [address] Eosinophils/100 WBC (Bld) 1.9 % Normal 0-5 [facility] Comment on above: Performed By: #### L 100.0100, L500.2500, L300.3900 ####[facility] [address] [place], [address] Erythrocyte distribution width (RBC) [Ratio] 13.1 % Normal 11.6-14.6 [facility] Comment on above: Performed By: #### L 100.0100, L500.2500, L300.3900 ####[facility] [address] [place], [address] Hematocrit (Bld) [Volume fraction] 36.0 % Low 40-54 [facility] Comment on above: Performed By: #### L 100.0100, L500.2500, L300.3900 ####[facility] [address] [place], [address] Hemoglobin (Bld) [Mass/Vol] 11.9 g/dL Low 13.0-16. 5 [facility] Comment on above: Performed By: #### L 100.0100, L500.2500, L300.3900 ####[facility] [address] [place], [address] IG% 0.400 Normal 0.0-0.9 [facility] Comment on above: Result Comment: IG% - Immature Granulocytes (promyelocytes, myelocytes andmetamyelocytes) > 1% indicates that a LEFT SHIFT is Present. Performed By: #### L 100.0100, L500.2500, L300.3900 ####[facility] [address] [place], [address] Lymphocytes/100 WBC (Bld) 29.8 % Normal 19-41 [facility] Comment on above: Performed By: #### L 100.0100, L500.2500, L300.3900 ####[facility] [address] [place], [address] MCH (RBC) [Entitic mass] 31.1 pg Normal 27.0-32.0 [facility] Comment on above: Performed By: #### L 100.0100, L500.2500, L300.3900 ####[facility] [address] [place], [address] MCHC (RBC) [Mass/Vol] 33.1 g/dL Normal 32-36 [facility] Comment on above: Performed By: #### L 100.0100, L500.2500, L300.3900 ####[facility] [address] [place], [address] MCV (RBC) [Entitic vol] 94.0 fL Normal 80-94 [facility] Comment on above: Performed By: #### L 100.0100, L500.2500, L300.3900 ####[facility] [address] [place], [address] Monocytes/100 WBC (Bld) 7.7 % Normal 0-10 [facility] Comment on above: Performed By: #### L 100.0100, L500.2500, L300.3900 ####[facility] [address] [place], [address] Neutrophils/100 WBC (Bld) 59.8 % Normal 47-70 [facility] Comment on above: Performed By: #### L 100.0100, L500.2500, L300.3900 ####[facility] [address] [place], [address] Nucleated RBC (Bld) [#/Vol] 0 10*3/uL Normal 0-5 [facility] Comment on above: Performed By: #### L 100.0100, L500.2500, L300.3900 ####[facility] [address] [place], [address] Platelet mean volume (Bld) [Entitic vol] 9.2 fL Normal 6.2-12.0 [facility] Comment on above: Performed By: #### L 100.0100, L500.2500, L300.3900 ####[facility] [address] [place], [address] Platelets (Bld) [#/Vol] 318 10*3/uL Normal 150-450 [facility] Comment on above: Performed By: #### L 100.0100, L500.2500, L300.3900 ####[facility] [address] [place], [address] RBC (Bld) [#/Vol] 3.83 10*6/uL Low 4.6-6.2 [facility] Comment on above: Performed By: #### L 100.0100, L500.2500, L300.3900 ####[facility] [address] [place], [address] RDW SD 44.8 fl High 35.1-43.9 [facility] Comment on above: Performed By: #### L 100.0100, L500.2500, L300.3900 ####[facility] [address] [place], [address] WBC (Bld) [#/Vol] 5.3 10*3/uL Normal 4.4-11.0 [facility] Comment on above: Performed By: #### L 100.0100, L500.2500, L300.3900 ####[facility] [address] [place], [address] Cardiology Visit Reporton Cardiology Visit Report Normal [facility] Chest PA and Lateralon 06-29 Chest PA and Lateral Normal [facility] Prothrombin Time w/INRon INR Coag (PPP) [Relative time] 1.1 {INR} Normal [facility] Comment on above: Performed By: #### L 100.0100, L500.2500, L300.3900 ####[facility] [address] [place], [address] PT Coag (PPP) [Time] 13.9 s Normal 11.7-14.9 [facility] Comment on above: Performed By: #### L 100.0100, L500.2500, L300.3900 ####[facility] [address] [place], [address] Stress Reporton 06-28-2024 Stress Report Normal [facility] Gastroenterology Visit Repor ton 06-17-2024 Gastroenterology Visit Report Normal [facility] CBC W/Diff, Automatedon 05-14 Absolute Lymph 1.52 X10 3/uL Normal 0.83-4.51 [facility] Comment on above: Performed By: #### L 100.0100, L500.4050, L501.9910, L500.4100 ####[facility] [address] [place], [address] Absolute Neut 2.4 X10 3/uL Normal 2.0-7.7 [facility] Comment on above: Performed By: #### L 100.0100, L500.4050, L501.9910, L500.4100 ####[facility] [address] [place], [address] Basophils/100 WBC (Bld) 0.9 % Normal 0-1 [facility] Comment on above: Performed By: #### L 100.0100, L500.4050, L501.9910, L500.4100 ####[facility] [address] [place], [address] Eosinophils/100 WBC (Bld) 2.3 % Normal 0-5 [facility] Comment on above: Performed By: #### L 100.0100, L500.4050, L501.9910, L500.4100 ####[facility] [address] [place], [address] Erythrocyte distribution width (RBC) [Ratio] 12.9 % Normal 11.6-14.6 [facility] Comment on above: Performed By: #### L 100.0100, L500.4050, L501.9910, L500.4100 ####[facility] [address] [place], [address] Hematocrit (Bld) [Volume fraction] 38.4 % Low 40-54 [facility] Comment on above: Performed By: #### L 100.0100, L500.4050, L501.9910, L500.4100 ####[facility] [address] [place], [address] Hemoglobin (Bld) [Mass/Vol] 12.4 g/dL Low 13.0-16. 5 [facility] Comment on above: Performed By: #### L 100.0100, L500.4050, L501.9910, L500.4100 ####[facility] [address] [place], [address] IG% 0.200 Normal 0.0-0.9 [facility] Comment on above: Result Comment: IG% - Immature Granulocytes (promyelocytes, myelocytes andmetamyelocytes) > 1% indicates that a LEFT SHIFT is Present. Performed By: #### L 100.0100, L500.4050, L501.9910, L500.4100 ####[facility] [address] [place], [address] Lymphocytes/100 WBC (Bld) 34.2 % Normal 19-41 [facility] Comment on above: Performed By: #### L 100.0100, L500.4050, L501.9910, L500.4100 ####[facility] [address] [place], [address] MCH (RBC) [Entitic mass] 30.0 pg Normal 27.0-32.0 [facility] Comment on above: Performed By: #### L 100.0100, L500.4050, L501.9910, L500.4100 ####[facility] [address] [place], [address] MCHC (RBC) [Mass/Vol] 32.3 g/dL Normal 32-36 [facility] Comment on above: Performed By: #### L 100.0100, L500.4050, L501.9910, L500.4100 ####[facility] [address] [place], [address] MCV (RBC) [Entitic vol] 93.0 fL Normal 80-94 [facility] Comment on above: Performed By: #### L 100.0100, L500.4050, L501.9910, L500.4100 ####[facility] [address] [place], [address] Monocytes/100 WBC (Bld) 8.3 % Normal 0-10 [facility] Comment on above: Performed By: #### L 100.0100, L500.4050, L501.9910, L500.4100 ####[facility] [address] [place], [address] Neutrophils/100 WBC (Bld) 54.1 % Normal 47-70 [facility] Comment on above: Performed By: #### L 100.0100, L500.4050, L501.9910, L500.4100 ####[facility] [address] [place], [address] Nucleated RBC (Bld) [#/Vol] 0 10*3/uL Normal 0-5 [facility] Comment on above: Performed By: #### L 100.0100, L500.4050, L501.9910, L500.4100 ####[facility] [address] [place], [address] Platelet mean volume (Bld) [Entitic vol] 9.6 fL Normal 6.2-12.0 [facility] Comment on above: Performed By: #### L 100.0100, L500.4050, L501.9910, L500.4100 ####[facility] [address] [place], [address] Platelets (Bld) [#/Vol] 340 10*3/uL Normal 150-450 [facility] Comment on above: Performed By: #### L 100.0100, L500.4050, L501.9910, L500.4100 ####[facility] [address] [place], [address] RBC (Bld) [#/Vol] 4.13 10*6/uL Low 4.6-6.2 [facility] Comment on above: Performed By: #### L 100.0100, L500.4050, L501.9910, L500.4100 ####[facility] [address] [place], [address] RDW SD 43.8 fl Normal 35.1-43.9 [facility] Comment on above: Performed By: #### L 100.0100, L500.4050, L501.9910, L500.4100 ####[facility] [address] [place], [address] WBC (Bld) [#/Vol] 4.4 10*3/uL Normal 4.4-11.0 [facility] Comment on above: Performed By: #### L 100.0100, L500.4050, L501.9910, L500.4100 ####[facility] [address] [place], [address] Comprehensive Metabolic [facility] 06-10-2024 Albumin [Mass/Vol] 3.6 g/dL Normal 3.2-5.0 [facility] Comment on above: Performed By: #### L 100.0100, L500.4050, L501.9910, L500.4100 ####[facility] [address] [place], [address] Albumin/Globulin [Mass ratio] 0.9 {ratio} Normal 0.9-2.4 [facility] Comment on above: Performed By: #### L 100.0100, L500.4050, L501.9910, L500.4100 ####[facility] [address] [place], [address] ALK P 72 U/L Normal 45-117 [facility] Comment on above: Performed By: #### L 100.0100, L500.4050, L501.9910, L500.4100 ####[facility] [address] [place], [address] ALT [Catalytic activity/Vol] 17 U/L Normal 16-61 [facility] Comment on above: Performed By: #### L 100.0100, L500.4050, L501.9910, L500.4100 ####[facility] [address] [place], [address] AST [Catalytic activity/Vol] 14 U/L Low 15-37 [facility] Comment on above: Performed By: #### L 100.0100, L500.4050, L501.9910, L500.4100 ####[facility] [address] [place], [address] Bilirubin [Mass/Vol] 0.50 mg/dL Normal 0.20-1.00 [facility] Comment on above: Result Comment: For patients on eltrombopag therapy, use of Dimension [place] TBIL is not recommended. Performed By: #### L 100.0100, L500.4050, L501.9910, L500.4100 ####[facility] [address] [place], [address] BUN/CRE 21.7 RATIO High 10-20 [facility] Comment on above: Performed By: #### L 100.0100, L500.4050, L501.9910, L500.4100 ####[facility] [address] [place], [address] CA,Total 9.6 mg/dL Normal 8.5-10.1 [facility] Comment on above: Performed By: #### L 100.0100, L500.4050, L501.9910, L500.4100 ####[facility] [address] [place], [address] Chloride [Moles/Vol] 103 mmol/L Normal 98-107 [facility] Comment on above: Performed By: #### L 100.0100, L500.4050, L501.9910, L500.4100 ####[facility] [address] [place], [address] CO2 [Moles/Vol] 28.0 mmol/L Normal 21.0-32.0 [facility] Comment on above: Performed By: #### L 100.0100, L500.4050, L501.9910, L500.4100 ####[facility] [id number] [place], [address] Creatinine [Mass/Vol] 1.38 mg/dL High 0.70-1.30 [facility] Comment on above: Result Comment: The validity of the calculated GFR GFRAA in patients over70 years has not been determined. Clinical correlation isessential. Performed By: #### L 100.0100, L500.4050, L501.9910, L500.4100 ####[facility] [address] [place], [address] EST GFR - AA 65 mL/min Normal >60 [facility] Comment on above: Result Comment: Afri can [place] GFR Calc Performed By: #### L 100.0100, L500.4050, L501.9910, L500.4100 ####[facility] [address] [place], [address] GAP 5 Normal 5-15 [facility] Comment on above: Performed By: #### L 100.0100, L500.4050, L501.9910, L500.4100 ####[facility] [address] [place], [address] GFR/1.73 sq M.predicted among non-blacks MDRD (S/P/Bld) [Vol rate/Area] 54 mL/min/{1.73_m2} Low >60 [facility] Comment on above: Result Comment: Non- GFR Calc Performed By: #### L 100.0100, L500.4050, L501.9910, L500.4100 ####[facility] [address] [place], [address] Globulin (S) [Mass/Vol] 3.8 g/dL Normal 2.2-4.2 [facility] Comment on above: Performed By: #### L 100.0100, L500.4050, L501.9910, L500.4100 ####[facility] [address] [place], [address] Glucose [Mass/Vol] 117 mg/dL High 74-106 [facility] Comment on above: Result Comment: Fast ing Glucose result from 100 to 125 mg/dLsuggests IMPAIRED HOMEOSTASIS per A.D.A. criteria. Performed By: #### L 100.0100, L500.4050, L501.9910, L500.4100 ####[facility] [address] [place], [address] Potassium [Moles/Vol] 3.9 mmol/L Normal 3.5-5.1 [facility] Comment on above: Performed By: #### L 100.0100, L500.4050, L501.9910, L500.4100 ####[facility] [address] [place], [address] Sodium [Moles/Vol] 136 mmol/L Normal 136-145 [facility] Comment on above: Performed By: #### L 100.0100, L500.4050, L501.9910, L500.4100 ####[facility] [address] [place], [address] T PROT 7.4 g/dL Normal 6.4-8.2 [facility] Comment on above: Performed By: #### L 100.0100, L500.4050, L501.9910, L500.4100 ####[facility] [address] [place], [address] Urea nitrogen [Mass/Vol] 30 mg/dL High 7-18 [facility] Comment on above: Performed By: #### L 100.0100, L500.4050, L501.9910, L500.4100 ####[facility] [address] [place], [address] Ferritinon 06-10-2024 Ferritin [Mass/Vol] 68 ng/mL Normal 26-388 [facility] Comment on above: Performed By: #### L 503.6550, L503.6075, L503.6150 ####[facility] [address] [place], [address] Internal Medicine Office Vis iton 06-10-2024 Internal Medicine Office Visit Normal [facility] Ironon 06-10-2024 Iron [Mass/Vol] 92 ug/dL Normal 65-175 [facility] Comment on above: Performed By: #### L 503.6550, L503.6075, L503.6150 ####[facility] [address] [place], [address] Iron Binding Capacity,Totalo n 06-10-2024 TIBC 298 ug/dL Normal 250-450 [facility] Comment on above: Performed By: #### L 503.6550, L503.6075, L503.6150 ####[facility] [address] [place], [address] Lipid Profileon 06-10-2024 Cholesterol [Mass/Vol] 130 mg/dL Normal 200 [facility] Comment on above: Result Comment: <200 mg/dL Desirable 200-240 mg/dL Borderline >240 mg/dL High Risk Performed By: #### L 100.0100, L500.4050, L501.9910, L500.4100 ####[facility] [address] [place], [address] Cholesterol in HDL [Mass/Vol] 69 mg/dL Normal [facility] Comment on above: Result Comment: The drugs N-Acetylcysteine and Metamizole may falselydepress this assay. Reference Range HDL <40 mg/dL Low HDL Cholesterol HDL >or= 60 mg/dL High HDL Cholesterol Performed By: #### L 100.0100, L500.4050, L501.9910, L500.4100 ####[facility] [address] [place], [address] Cholesterol in LDL [Mass/Vol] 52 mg/dL Normal 0-130 [facility] Comment on above: Performed By: #### L 100.0100, L500.4050, L501.9910, L500.4100 ####[facility] [address] [place], [address] Cholesterol in VLDL [Mass/Vol] 9 mg/dL Normal 5-40 [facility] Comment on above: Performed By: #### L 100.0100, L500.4050, L501.9910, L500.4100 ####[facility] [address] [place], [address] Triglyceride [Mass/Vol] 43 mg/dL Normal [facility] Comment on above: Result Comment: The drugs N-Acetylcysteine and Metamizole may falselydepress this assay.Serum Triglycerides Reference Interval Normal <150 mg/dL Borderline high 150 - 199 mg/dL High 200 - 499 mg/dL Very High > or = 500 mg/dL Performed By: #### L 100.0100, L500.4050, L501.9910, L500.4100 ####[facility] [address] [place], [address] PSA,Total - Annual Screenon 06-10-2024 PSA,TOT SCREEN 1.14 ng/mL Normal 0.00-4.00 [facility] Comment on above: Result Comment: This test was performed using the TPSA assay method for the[employer] chemistry system. Values obtained with differentassay methods cannot be used interchangably.When changing PSA assays in the course of monitoring apatient, additional sequential testing should be carriedout to confirm baseline values. Performed By: #### L 100.0100, L500.4050, L501.9910, L500.4100 ####[facility] [address] [place], [address] Basophil percentageOrdered B y: Timmy Floyd on 12-03-2023 Bilirubin [Mass/Vol] 0.70 mg/dL 0.20-1.00 [facility] Comment on above: For patients on eltr ombopag therapy, use of Dim[place] TBIL is not recommended. Chloride [Moles/Vol] 104 mmol/L 98-107 [facility] Glucose [Mass/Vol] 103 mg/dL 74-106 [facility] Comment on above: Fasting Glucose resu lt from 100 to 125 mg/dL suggests IMPAIRED HOMEOSTASIS per A.D.A. criteria. Potassium [Moles/Vol] 4.4 mmol/L 3.5-5.1 [facility] Protein [Mass/Vol] 7.5 g/dL 6.4-8.2 [facility] Sodium [Moles/Vol] 137 mmol/L 136-145 [facility] Laboratory - Chemistry and C hemistry - challengeOrdered By: Timmy Floyd on 12-03-2023 Albumin/Globulin [Mass ratio] 1.0 {ratio} 0.9-2.4 [facility] ALP [Catalytic activity/Vol] 67 U/L 45-117 [facility] ALT [Catalytic activity/Vol] 23 U/L 16-61 [facility] CO2 [Moles/Vol] 28.0 mmol/L 21.0-32.0 [facility] Globulin (S) [Mass/Vol] 3.7 g/dL 2.2-4.2 [facility] Urea nitrogen/Creatinine [Mass ratio] 35.3 mg/mg 10-20 [facility] Laboratory - Hematology and Cell countson 12-03-2023 HbA1c (Bld) [Mass fraction] 8.2 % 4.2-6.3 [facility] No Panel InformationOrdered By: Timmy Floyd on 12-03-2023 Estimated GFR (MDRD) Amer 78 mL/min >60 [facility] Comment on above: GFR Calc Estimated GFR (MDRD) Non-Af Amer 64 mL/min >60 [facility] Comment on above: Non- GFR Calc Urine Microalbumin/Creatinine Ratio 16.9 mg/g CRE <30 [facility] Serum or plasma calcium jhon urement (mass/volume)Ordered By: Timmy Floyd on 12-03-2023 Calcium [Mass/Vol] 9.7 mg/dL 8.5-10.1 [facility] Serum or plasma creatinine m easurement (mass/volume)Ordered By: Timmy Floyd on 12-03-2023 Creatinine [Mass/Vol] 1.19 mg/dL 0.70-1.30 [facility] Comment on above: The validity of the calculated GFR & GFRAA in patients over 70 years has not been determined. Clinical correlation is essential. Serum or plasma urea nitroge n measurement (mass/volume)Ordered By: Timmy Floyd on 12-03-2023 Urea nitrogen [Mass/Vol] 42 mg/dL 7-18 [facility] Thin prep Papanicolaou smear with manual screeningOrdered By: Timmy Floyd on 12-03-2023 Thin prep Papanicolaou smear with manual screening 3.8 g/dL 3.2-5.0 [facility] Thin prep Papanicolaou smear with manual screening 17 U/L 15-37 [facility] Thin prep Papanicolaou smear with manual screening 5 5-15 [facility] Thin prep Papanicolaou smear with manual screening 17.9 mg/L NO RANGE EST. [facility] Urine creatinine measurement (mass/volume)Ordered By: Timmy Floyd on 12-03-2023 Creatinine (U) [Mass/Vol] 106.00 mg/dL NO RANGE EST. [facility] Laboratory - Hematology and Cell countson 08-28-2023 HbA1c (Bld) [Mass fraction] 9.4 % 4.2-6.3 [facility] Absolute lymphocyte countOrd ered By: Timmy Floyd on 05-11-2023 Lymphocytes Auto (Unsp spec) [#/Vol] 1.71 10*3/uL 0.83-4.51 [facility] Basophil percentageOrdered B y: Timmy Floyd on 05-11-2023 Basophils/100 WBC (Bld) 0.8 % 0-1 [facility] Bilirubin [Mass/Vol] 0.30 mg/dL 0.20-1.00 [facility] Comment on above: For patients on eltr ombopag therapy, use of Dim[place] TBIL is not recommended. Chloride [Moles/Vol] 105 mmol/L 98-107 [facility] Cholesterol [Mass/Vol] 144 mg/dL <200 [facility] Comment on above: <200 mg/dL Desirable 200-240 mg/dL Borderline >240 mg/dL High Risk Eosinophils/100 WBC (Bld) 4.1 % 0-5 [facility] Glucose [Mass/Vol] 233 mg/dL 74-106 [facility] Comment on above: Glucose result great er than or equal to 200 mg/dLsuggests DIABETES MELLITUS per A.D.A. criteria. Neutrophils (Bld) [#/Vol] 3.8 10*3/uL 2.0-7.7 [facility] Neutrophils/100 WBC (Bld) 60.3 % 47-70 [facility] Potassium [Moles/Vol] 4.7 mmol/L 3.5-5.1 [facility] Protein [Mass/Vol] 7.9 g/dL 6.4-8.2 [facility] Sodium [Moles/Vol] 137 mmol/L 136-145 [facility] Triglyceride [Mass/Vol] 198 mg/dL <199 [facility] Comment on above: The drugs N-Acetylcy steine and Metamizole may falsely depress this assay.Serum Triglycerides Reference Interval Normal <150 mg/dL Borderline high 150 - 199 mg/dL High 200 - 499 mg/dL Very High > or = 500 mg/dL WBC (Bld) [#/Vol] 6.4 10*3/uL 4.4-11.0 [facility] Blood erythrocytes count (nu mber/volume)Ordered By: Timmy Floyd on 05-11-2023 RBC (Bld) [#/Vol] 4.48 10*6/uL 4.6-6.2 [facility] Blood hemoglobin measurement (mass/volume)Ordered By: Timmy Floyd on 05-11-2023 Hemoglobin (Bld) [Mass/Vol] 14.1 g/dL 13.0-16. 5 [facility] Blood lymphocytes/100 leukoc ytesOrdered By: Timmy Floyd on 05-11-2023 Lymphocytes/100 WBC (Bld) 26.8 % 19-41 [facility] Blood monocytes/100 leukocyt esOrdered By: Timmy Floyd on 05-11-2023 Monocytes/100 WBC (Bld) 7.4 % 0-10 [facility] Blood platelet mean volumeOr dered By: Timmy Floyd on 05-11-2023 Platelet mean volume (Bld) [Entitic vol] 9.8 fL 6.2-12.0 [facility] Determination of erythrocyte mean corpuscular volume (MCV)Ordered By: Timmy Floyd on 05-11-2023 MCV (RBC) [Entitic vol] 96.2 fL 80-94 [facility] Hematocrit Auto (Bld) [Volum e fraction]Ordered By: Timmy Floyd on 05-11-2023 Hematocrit (Bld) [Volume fraction] 43.1 % 40-54 [facility] Laboratory - Chemistry and C hemistry - challengeOrdered By: Timmy Floyd on 05-11-2023 ALP [Catalytic activity/Vol] 83 U/L 45-117 [facility] ALT [Catalytic activity/Vol] 35 U/L 16-61 [facility] CO2 [Moles/Vol] 25.0 mmol/L 21.0-32.0 [facility] Globulin (S) [Mass/Vol] 4.5 g/dL 2.2-4.2 [facility] Urea nitrogen/Creatinine [Mass ratio] 26.1 mg/mg 10-20 [facility] Laboratory - Hematology and Cell countsOrdered By: Timmy Floyd on 05-11-2023 Erythrocyte distribution width (RBC) [Entitic vol] 42.7 fL 35.1-43.9 [facility] Erythrocyte distribution width (RBC) [Ratio] 12.1 % 11.6-14.6 [facility] Immature granulocytes/100 WBC (Bld) 0.600 % 0.0-0.9 [facility] Comment on above: IG% - Immature Granu locytes (promyelocytes, myelocytes and metamyelocytes) > 1% indicates that a LEFT SHIFT is Present. MCH (RBC) [Entitic mass] 31.5 pg 27.0-32.0 [facility] Nucleated RBC/100 WBC (Bld) [Ratio] 0 % 0-5 [facility] MCHC Auto (RBC) [Mass/Vol]Or dered By: Timmy Floyd on 05-11-2023 MCHC (RBC) [Mass/Vol] 32.7 g/dL 32-36 [facility] No Panel InformationOrdered By: Timmy Floyd on 05-11-2023 Urine Microalbumin/Creatinine Ratio 70.0 mg/g CRE <30 [facility] Estimated GFR (MDRD) Amer 68 mL/min >60 [facility] Comment on above: GFR Calc Estimated GFR (MDRD) Non-Af Amer 56 mL/min >60 [facility] Comment on above: Non- GFR Calc Prostate Specific Antigen Screen 1.54 ng/mL 0.00-4.00 [facility] Comment on above: This test was perfor med using the TPSA assay method for the[employer] chemistry system. Values obtained with differentassay methods cannot be used interchangably.When changing PSA assays in the course of monitoring apatient, additional sequential testing should be carriedout to confirm baseline values. Platelets bldOrdered By: Chevy Floyd on 05-11-2023 Platelets (Bld) [#/Vol] 365 10*3/uL 150-450 [facility] Serum or plasma albumin jhon urement (mass/volume)Ordered By: Timmy Floyd on 05-11-2023 Albumin [Mass/Vol] 3.4 g/dL 3.2-5.0 [facility] Serum or plasma albumin/glob ulin mass ratioOrdered By: Timmy Floyd on 05-11-2023 Albumin/Globulin [Mass ratio] 0.8 {ratio} 0.9-2.4 [facility] Serum or plasma calcium jhon urement (mass/volume)Ordered By: Timmy Floyd on 05-11-2023 Calcium [Mass/Vol] 9.2 mg/dL 8.5-10.1 [facility] Serum or plasma cholesterol in HDL measurement (mass/volume)Ordered By: Timmy Floyd on 05-11-2023 Cholesterol in HDL [Mass/Vol] 48 mg/dL >40 [facility] Comment on above: The drugs N-Acetylcy steine and Metamizole may falsely depress this assay. Reference Range HDL <40 mg/dL Low HDL Cholesterol HDL >or= 60 mg/dL High HDL Cholesterol Serum or plasma cholesterol in VLDL measurement (mass/volume)Ordered By: Timmy Floyd on 05-11-2023 Cholesterol in VLDL [Mass/Vol] 40 mg/dL 5-40 [facility] Serum or plasma creatinine m easurement (mass/volume)Ordered By: Timmy Floyd on 05-11-2023 Creatinine [Mass/Vol] 1.34 mg/dL 0.70-1.30 [facility] Comment on above: The validity of the calculated GFR & GFRAA in patients over 70 years has not been determined. Clinical correlation is essential. Serum or plasma low density lipoprotein (LDL) cholesterol measurement (mass/volume)Ordered By: Timmy Floyd on 05-11-2023 Cholesterol in LDL [Mass/Vol] 56 mg/dL 0-130 [facility] Serum or plasma urea nitroge n measurement (mass/volume)Ordered By: Timmy Floyd on 05-11-2023 Urea nitrogen [Mass/Vol] 35 mg/dL 7-18 [facility] Thin prep Papanicolaou smear with manual screeningOrdered By: [facility] on 05-11-2023 Thin prep Papanicolaou smear with manual screening 91.7 mg/L NO RANGE EST. [facility] Thin prep Papanicolaou smear with manual screening 22 U/L 15-37 [facility] Thin prep Papanicolaou smear with manual screening 7 5-15 [facility] Urine creatinine measurement (mass/volume)Ordered By: Timmy Floyd on 05-11-2023 Creatinine (U) [Mass/Vol] 131.00 mg/dL NO RANGE EST. [facility] Whole blood hemoglobin A1c/t otal hemoglobin ratio (mass fraction)Ordered By: Timmy Floyd on 05-11-2023 HbA1c (Bld) [Mass fraction] 8.5 % 3.8-5.6 [facility] Comment on above: Normal < 5.7 % Predi abetic 5.7 - 6.4 % Diabetic >or= 6.5 % Please note range changes. Absolute lymphocyte counton 04-01-2022 Lymphocytes Auto (Unsp spec) [#/Vol] 1.94 10*3/uL 0.83-4.51 [facility] Work Phone: Basophil percentageon 2021 Basophils/100 WBC (Bld) 0.8 % 0-1 [facility] Work Phone: Bilirubin [Mass/Vol] 0.30 mg/dL 0.20-1.00 [facility] Work Phone: Comment on above: For patients on eltr ombopag therapy, use of Dim[place] TBIL is not recommended. Chloride [Moles/Vol] 104 mmol/L 98-107 [facility] Work Phone: Eosinophils/100 WBC (Bld) 4.0 % 0-5 [facility] Work Phone: Glucose [Mass/Vol] 197 mg/dL 74-106 [facility] Work Phone: Comment on above: Fasting Glucose resu lt greater than or equal to 126 mg/dL suggests DIABETES MELLITUS per A.D.A. criteria. Neutrophils (Bld) [#/Vol] 3.3 10*3/uL 2.0-7.7 [facility] Work Phone: Neutrophils/100 WBC (Bld) 54.8 % 47-70 [facility] Work Phone: Potassium [Moles/Vol] 4.1 mmol/L 3.5-5.1 [facility] Work Phone: Protein [Mass/Vol] 7.2 g/dL 6.4-8.2 [facility] Work Phone: Sodium [Moles/Vol] 136 mmol/L 136-145 [facility] Work Phone: WBC (Bld) [#/Vol] 6.1 10*3/uL 4.4-11.0 [facility] Work Phone: Blood erythrocytes count (nu mber/volume)on 04-01-2022 RBC (Bld) [#/Vol] 4.36 10*6/uL 4.6-6.2 [facility] Work Phone: Blood hemoglobin measurement (mass/volume)on 04-01-2022 Hemoglobin (Bld) [Mass/Vol] 13.4 g/dL 13.0-16. 5 [facility] Work Phone: Blood lymphocytes/100 leukoc yteson 04-01-2022 Lymphocytes/100 WBC (Bld) 32.0 % 19-41 [facility] Work Phone: Blood monocytes/100 leukocyt eson 04-01-2022 Monocytes/100 WBC (Bld) 7.7 % 0-10 [facility] Work Phone: Blood platelet mean volumeon 04-01-2022 Platelet mean volume (Bld) [Entitic vol] 9.6 fL 6.2-12.0 [facility] Work Phone: Determination of erythrocyte mean corpuscular volume (MCV)on 04-01-2022 MCV (RBC) [Entitic vol] 92.7 fL 80-94 [facility] Work Phone: Hematocrit Auto (Bld) [Volum e fraction]on 04-01-2022 Hematocrit (Bld) [Volume fraction] 40.4 % 40-54 [facility] Work Phone: Laboratory - Chemistry and C hemistry - challengeon 04-01-2022 ALP [Catalytic activity/Vol] 63 U/L 45-117 [facility] Work Phone: ALT [Catalytic activity/Vol] 32 U/L 16-61 [facility] Work Phone: CO2 [Moles/Vol] 24.0 mmol/L 21.0-32.0 [facility] Work Phone: Globulin (S) [Mass/Vol] 3.8 g/dL 2.2-4.2 [facility] Work Phone: Urea nitrogen/Creatinine [Mass ratio] 18.3 mg/mg 10-20 [facility] Work Phone: Laboratory - Hematology and Cell countson 04-01-2022 Erythrocyte distribution width (RBC) [Entitic vol] 42.8 fL 35.1-43.9 [facility] Work Phone: Erythrocyte distribution width (RBC) [Ratio] 12.6 % 11.6-14.6 [facility] Work Phone: Immature granulocytes/100 WBC (Bld) 0.700 % 0.0-0.9 [facility] Work Phone: Comment on above: IG% - Immature Granu locytes (promyelocytes, myelocytes and metamyelocytes) > 1% indicates that a LEFT SHIFT is Present. MCH (RBC) [Entitic mass] 30.7 pg 27.0-32.0 [facility] Work Phone: Nucleated RBC/100 WBC (Bld) [Ratio] 0 % 0-5 [facility] Work Phone: MCHC Auto (RBC) [Mass/Vol]on 04-01-2022 MCHC (RBC) [Mass/Vol] 33.2 g/dL 32-36 [facility] Work Phone: No Panel Informationon 04-01 Estimated GFR (MDRD) Amer 81 mL/min >60 [facility] Work Phone: Comment on above: GFR Calc Estimated GFR (MDRD) Non-Af Amer 67 mL/min >60 [facility] Work Phone: Comment on above: Non- GFR Calc Prostate Specific Antigen Screen 1.38 ng/mL 0.00-4.00 [facility] Work Phone: Comment on above: This test was perfor med using the TPSA assay method for [employer] chemistry system. Values obtained with differentassay methods cannot be used interchangably.When changing PSA assays in the course of monitoring apatient, additional sequential testing should be carriedout to confirm baseline values. Thyroid Stimulating Hormone (TSH) 1.01 uIU/mL 0.358-3.74 [facility] Work Phone: Vitamin D 25-Hydroxy 47.2 ng/mL [facility] Work Phone: Comment on above: Vitamin D 25(OH) Sta tus Range Deficiency <20 ng/mL (50nmol/L) Insufficiency 20 - 30 ng/mL (50 - 75 nmol/L) Sufficiency 30 - 100 ng/mL (75 - 250 nmol/L) Toxicity >100 ng/mL (>250 nmol/L) Platelets bldon 04-01-2022 Platelets (Bld) [#/Vol] 319 10*3/uL 150-450 [facility] Work Phone: Serum or plasma albumin jhon urement (mass/volume)on 04-01-2022 Albumin [Mass/Vol] 3.4 g/dL 3.2-5.0 [facility] Work Phone: Serum or plasma albumin/glob ulin mass ratioon 04-01-2022 Albumin/Globulin [Mass ratio] 0.9 {ratio} 0.9-2.4 [facility] Work Phone: Serum or plasma calcium jhon urement (mass/volume)on 04-01-2022 Calcium [Mass/Vol] 8.9 mg/dL 8.5-10.1 [facility] Work Phone: Serum or plasma creatinine m easurement (mass/volume)on 04-01-2022 Creatinine [Mass/Vol] 1.15 mg/dL 0.70-1.30 [facility] Work Phone: Comment on above: The validity of the calculated GFR & GFRAA in patients over 70 years has not been determined. Clinical correlation is essential. Serum or plasma urea nitroge n measurement (mass/volume)on 04-01-2022 Urea nitrogen [Mass/Vol] 21 mg/dL 7-18 [facility] Work Phone: Thin prep Papanicolaou smear with manual screeningon 04-01-2022 Thin prep Papanicolaou smear with manual screening 17 U/L 15-37 [facility] Work Phone: Thin prep Papanicolaou smear with manual screening 8 5-15 [facility] Work Phone: Absolute lymphocyte counton 03-30-2022 Lymphocytes Auto (Unsp spec) [#/Vol] 1.27 10*3/uL 0.83-4.51 [facility] Work Phone: Basophil percentageon 2021 Basophils/100 WBC (Bld) 0.8 % 0-1 [facility] Work Phone: Chloride [Moles/Vol] 106 mmol/L 98-107 [facility] Work Phone: Eosinophils/100 WBC (Bld) 2.7 % 0-5 [facility] Work Phone: Glucose [Mass/Vol] 238 mg/dL 74-106 [facility] Work Phone: Comment on above: Glucose result great er than or equal to 200 mg/dLsuggests DIABETES MELLITUS per A.D.A. criteria. Neutrophils (Bld) [#/Vol] 4.4 10*3/uL 2.0-7.7 [facility] Work Phone: Neutrophils/100 WBC (Bld) 67.1 % 47-70 [facility] Work Phone: Potassium [Moles/Vol] 4.4 mmol/L 3.5-5.1 [facility] Work Phone: Comment on above: Moderate Hemolysis, Result may be falsely increased. Sodium [Moles/Vol] 138 mmol/L 136-145 [facility] Work Phone: WBC (Bld) [#/Vol] 6.6 10*3/uL 4.4-11.0 [facility] Work Phone: Blood erythrocytes count (nu mber/volume)on 03-30-2022 RBC (Bld) [#/Vol] 4.19 10*6/uL 4.6-6.2 [facility] Work Phone: Blood hemoglobin measurement (mass/volume)on 03-30-2022 Hemoglobin (Bld) [Mass/Vol] 13.2 g/dL 13.0-16. 5 [facility] Work Phone: [phone] Blood lymphocytes/100 leukoc yteson 03-30-2022 Lymphocytes/100 WBC (Bld) 19.3 % 19-41 [facility] Work Phone: Blood monocytes/100 leukocyt eson 03-30-2022 Monocytes/100 WBC (Bld) 9.6 % 0-10 [facility] Work Phone: Blood platelet mean volumeon 03-30-2022 Platelet mean volume (Bld) [Entitic vol] 9.3 fL 6.2-12.0 [facility] Work Phone: Determination of erythrocyte mean corpuscular volume (MCV)on 03-30-2022 MCV (RBC) [Entitic vol] 93.3 fL 80-94 [facility] Work Phone: Hematocrit Auto (Bld) [Volum e fraction]on 03-30-2022 Hematocrit (Bld) [Volume fraction] 39.1 % 40-54 [facility] Work Phone: Laboratory - Chemistry and C hemistry - challengeon 03-30-2022 CO2 [Moles/Vol] 25.0 mmol/L 21.0-32.0 [facility] Work Phone: Urea nitrogen/Creatinine [Mass ratio] 21.7 mg/mg 10-20 [facility] Work Phone: Laboratory - Hematology and Cell countson 03-30-2022 Erythrocyte distribution width (RBC) [Entitic vol] 42.5 fL 35.1-43.9 [facility] Work Phone: Erythrocyte distribution width (RBC) [Ratio] 12.4 % 11.6-14.6 [facility] Work Phone: Immature granulocytes/100 WBC (Bld) 0.500 % 0.0-0.9 [facility] Work Phone: Comment on above: IG% - Immature Granu locytes (promyelocytes, myelocytes and metamyelocytes) > 1% indicates that a LEFT SHIFT is Present. MCH (RBC) [Entitic mass] 31.5 pg 27.0-32.0 [facility] Work Phone: Nucleated RBC/100 WBC (Bld) [Ratio] 0 % 0-5 [facility] Work Phone: MCHC Auto (RBC) [Mass/Vol]on 03-30-2022 MCHC (RBC) [Mass/Vol] 33.8 g/dL 32-36 [facility] Work [facility]: No Panel Informationon 03-30 Troponin I High Sensitivity 5 pg/mL 3.0-78.0 [facility] Work Phone: Comment on above: Please Note: New Angela t Units and Gender Specific Reference Ranges. For more information see Policy Stat Procedure [place] High Sensitivity Troponin (TNIH) and attachments. Estimated Creatinine Clearance Calc 48.75 ml/min [facility] Work Phone: Estimated GFR (MDRD) Amer 63 mL/min >60 [facility] Work Phone: Comment on above: GFR Calc Estimated GFR (MDRD) Non-Af Amer 52 mL/min >60 [facility] Work Phone: Comment on above: Non- GFR Calc Platelets bldon 03-30-2022 Platelets (Bld) [#/Vol] 300 10*3/uL 150-450 [facility] Work Phone: Serum or plasma calcium jhon urement (mass/volume)on 03-30-2022 Calcium [Mass/Vol] 9.1 mg/dL 8.5-10.1 [facility] Work Phone: Serum or plasma creatinine m easurement (mass/volume)on 03-30-2022 Creatinine [Mass/Vol] 1.43 mg/dL 0.70-1.30 [facility] Work Phone: Comment on above: The validity of the calculated GFR & GFRAA in patients over 70 years has not been determined. Clinical correlation is essential. Serum or plasma urea nitroge n measurement (mass/volume)on 03-30-2022 Urea nitrogen [Mass/Vol] 31 mg/dL -18 [facility] Work Phone: Thin prep Papanicolaou smear with manual screeningon 03-30-2022 Thin prep Papanicolaou smear with manual screening 7 5-15 [facility] Work Phone: Glucose Glucometer (BldC) [M ass/Vol]on 02-26-2022 Glucose [Mass/Vol] 112 mg/dL 74-106 [facility] Work Phone: Comment on above: MANAGEMENT OF PATIEN T CARE PER NURSING PROTOCOL Basophil percentageon 2021 Chloride [Moles/Vol] 103 mmol/L 98-107 [facility] Work Phone: Glucose [Mass/Vol] 140 mg/dL 74-106 [facility] Work Phone: Comment on above: Fasting Glucose resu lt greater than or equal to 126 mg/dL suggests DIABETES MELLITUS per A.D.A. criteria. Potassium [Moles/Vol] 4.6 mmol/L 3.5-5.1 [facility] Work Phone: Sodium [Moles/Vol] 136 mmol/L 136-145 [facility] Work Phone: Laboratory - Chemistry and C hemistry - challengeon 01-20-2022 CO2 [Moles/Vol] 30.0 mmol/L 21.0-32.0 [facility] Work Phone: Urea nitrogen/Creatinine [Mass ratio] 27.4 mg/mg 10-20 [facility] Work Phone: No Panel Informationon 01-20 Estimated GFR (MDRD) Amer 62 mL/min >60 [facility] Work Phone: Comment on above: GFR Calc Estimated GFR (MDRD) Non-Af Amer 51 mL/min >60 [facility] Work Phone: Comment on above: Non- GFR Calc Serum or plasma calcium jhon urement (mass/volume)on 01-20-2022 Calcium [Mass/Vol] 9.6 mg/dL 8.5-10.1 [facility] Work Phone: Serum or plasma creatinine m easurement (mass/volume)on 01-20-2022 Creatinine [Mass/Vol] 1.46 mg/dL 0.70-1.30 [facility] Work Phone: Comment on above: The validity of the calculated GFR & GFRAA in patients over 70 years has not been determined. Clinical correlation is essential. Serum or plasma urea nitroge n measurement (mass/volume)on 01-20-2022 Urea nitrogen [Mass/Vol] 40 mg/dL 7-18 [facility] Work Phone: Thin prep Papanicolaou smear with manual screeningon 01-20-2022 Thin prep Papanicolaou smear with manual screening 3 5-15 [facility] Work Phone: Absolute lymphocyte counton 01-02-2022 Lymphocytes Auto (Unsp spec) [#/Vol] 2.23 10*3/uL 0.83-4.51 [facility] Work Phone: Basophil percentageon 2021 Basophils/100 WBC (Bld) 0.4 % 0-1 [facility] Work Phone: Chloride [Moles/Vol] 105 mmol/L 98-107 [facility] Work Phone: [phone] Eosinophils/100 WBC (Bld) 1.8 % 0-5 [facility] Work Phone: Glucose [Mass/Vol] 185 mg/dL 74-106 [facility] Work Phone: Comment on above: Fasting Glucose resu lt greater than or equal to 126 mg/dL suggests DIABETES MELLITUS per A.D.A. criteria. Neutrophils (Bld) [#/Vol] 4.3 10*3/uL 2.0-7.7 [facility] Work Phone: [phone] Neutrophils/100 WBC (Bld) 58.6 % 47-70 [facility] Work Phone: [phone] Potassium [Moles/Vol] 4.3 mmol/L 3.5-5.1 [facility] Work Phone: Sodium [Moles/Vol] 137 mmol/L 136-145 [facility] Work Phone: WBC (Bld) [#/Vol] 7.3 10*3/uL 4.4-11.0 [facility] Work Phone: Blood erythrocytes count (nu mber/volume)on 01-02-2022 RBC (Bld) [#/Vol] 4.28 10*6/uL 4.6-6.2 [facility] Work Phone: Blood hemoglobin measurement (mass/volume)on 01-02-2022 Hemoglobin (Bld) [Mass/Vol] 13.7 g/dL 13.0-16. 5 [facility] Work Phone: Blood lymphocytes/100 leukoc yteson 01-02-2022 Lymphocytes/100 WBC (Bld) 30.5 % 19-41 [facility] Work Phone: Blood monocytes/100 leukocyt eson 01-02-2022 Monocytes/100 WBC (Bld) 8.4 % 0-10 [facility] Work Phone: Blood platelet mean volumeon 01-02-2022 Platelet mean volume (Bld) [Entitic vol] 9.3 fL 6.2-12.0 [facility] Work Phone: Determination of erythrocyte mean corpuscular volume (MCV)on 01-02-2022 MCV (RBC) [Entitic vol] 93.5 fL 80-94 [facility] Work Phone: Hematocrit Auto (Bld) [Volum e fraction]on 01-02-2022 Hematocrit (Bld) [Volume fraction] 40.0 % 40-54 [facility] Work Phone: INR in Blood by Coagulation assayon 01-02-2022 INR Coag (Bld) [Relative time] 1.1 {INR} [facility] Work Phone: Laboratory - Chemistry and C hemistry - challengeon 01-02-2022 CO2 [Moles/Vol] 26.0 mmol/L 21.0-32.0 [facility] Work Phone: Urea nitrogen/Creatinine [Mass ratio] 27.6 mg/mg 10-20 [facility] Work Phone: Laboratory - Coagulationon 0 01-02-2022 aPTT Coag (Bld) [Time] 27.1 s 24.1-36.2 [facility] Work Phone: PT Coag (PPP) [Time] 13.1 s 11.7-14.9 [facility] Work Phone: Laboratory - Hematology and Cell countson 01-02-2022 Erythrocyte distribution width (RBC) [Entitic vol] 42.8 fL 35.1-43.9 [facility] Work Phone: Erythrocyte distribution width (RBC) [Ratio] 12.4 % 11.6-14.6 [facility] Work Phone: Immature granulocytes/100 WBC (Bld) 0.300 % 0.0-0.9 [facility] Work Phone: Comment on above: IG% - Immature Granu locytes (promyelocytes, myelocytes and metamyelocytes) > 1% indicates that a LEFT SHIFT is Present. MCH (RBC) [Entitic mass] 32.0 pg 27.0-32.0 [facility] Work Phone: Nucleated RBC/100 WBC (Bld) [Ratio] 0 % 0-5 [facility] Work Phone: MCHC Auto (RBC) [Mass/Vol]on 01-02-2022 MCHC (RBC) [Mass/Vol] 34.3 g/dL 32-36 [facility] Work Phone: No Panel Informationon 01-02 Estimated GFR (MDRD) Amer 80 mL/min >60 [facility] Work Phone: Comment on above: GFR Calc Estimated GFR (MDRD) Non-Af Amer 66 mL/min >60 [facility] Work Phone: Comment on above: Non- GFR Calc Platelets bldon 01-02-2022 Platelets (Bld) [#/Vol] 330 10*3/uL 150-450 [facility] Work Phone: Serum or plasma calcium jhon urement (mass/volume)on 01-02-2022 Calcium [Mass/Vol] 9.3 mg/dL 8.5-10.1 [facility] Work Phone: Serum or plasma creatinine m easurement (mass/volume)on 01-02-2022 Creatinine [Mass/Vol] 1.16 mg/dL 0.70-1.30 [facility] Work Phone: Comment on above: The validity of the calculated GFR & GFRAA in patients over 70 years has not been determined. Clinical correlation is essential. Serum or plasma urea nitroge n measurement (mass/volume)on 01-02-2022 Urea nitrogen [Mass/Vol] 32 mg/dL 7-18 [facility] Work Phone: Thin prep Papanicolaou smear with manual screeningon 01-02-2022 Thin prep Papanicolaou smear with manual screening 6 5-15 [facility] Work Phone: Absolute lymphocyte counton 10-02-2021 Lymphocytes Auto (Unsp spec) [#/Vol] 1.16 10*3/uL 0.83-4.51 [facility] Work Phone: Basophil percentageon 2020 Chloride [Moles/Vol] 100 mmol/L 98-107 [facility] Work Phone: Eosinophils/100 WBC (Bld) 1.2 % 0-5 [facility] Work Phone: Glucose [Mass/Vol] 223 mg/dL 74-106 [facility] Work Phone: Comment on above: Glucose result great er than or equal to 200 mg/dLsuggests DIABETES MELLITUS per A.D.A. criteria.Please note revised GLUCOSE reference range effective 2017. Neutrophils (Bld) [#/Vol] 6.9 10*3/uL 2.0-7.7 [facility] Work Phone: Potassium [Moles/Vol] 4.3 mmol/L 3.5-5.1 [facility] Work Phone: Sodium [Moles/Vol] 137 mmol/L 136-145 [facility] Work Phone: WBC (Bld) [#/Vol] 9.0 10*3/uL 4.4-11.0 [facility] Work Phone: Blood erythrocytes count (nu mber/volume)on 10-02-2021 RBC (Bld) [#/Vol] 4.49 10*6/uL 4.6-6.2 [facility] Work [facility]: Blood hemoglobin measurement (mass/volume)on 10-02-2021 Hemoglobin (Bld) [Mass/Vol] 14.2 g/dL 13.0-16. 5 [facility] Work Phone: Blood lymphocytes/100 leukoc yteson 10-02-2021 Lymphocytes/100 WBC (Bld) 12.9 % 19-41 [facility] Work Phone: Blood monocytes/100 leukocyt eson 10-02-2021 Monocytes/100 WBC (Bld) 9.2 % 0-10 [facility] Work Phone: Blood platelet mean volumeon 10-02-2021 Platelet mean volume (Bld) [Entitic vol] 8.9 fL 6.2-12.0 [facility] Work Phone: Determination of erythrocyte mean corpuscular volume (MCV)on 10-02-2021 MCV (RBC) [Entitic vol] 93.3 fL 80-94 [facility] Work Phone: Hematocrit Auto (Bld) [Volum e fraction]on 10-02-2021 Hematocrit (Bld) [Volume fraction] 41.9 % 40-54 [facility] Work Phone: Laboratory - Chemistry and C hemistry - challengeon 10-02-2021 CO2 [Moles/Vol] 26.0 mmol/L 21.0-32.0 [facility] Work Phone: Urea nitrogen/Creatinine [Mass ratio] 25.2 mg/mg 10-20 [facility] Work Phone: Laboratory - Hematology and Cell countson 10-02-2021 Basophils/100 WBC (Unsp spec) 0.3 % 0-1 [facility] Work Phone: Erythrocyte distribution width (RBC) [Entitic vol] 44.9 fL 35.1-43.9 [facility] Work Phone: Erythrocyte distribution width (RBC) [Ratio] 13.2 % 11.6-14.6 [facility] Work Phone: Immature granulocytes/100 WBC (Bld) 0.300 % 0.0-0.9 [facility] Work Phone: Comment on above: IG% - Immature Granu locytes (promyelocytes, myelocytes and metamyelocytes) > 1% indicates that a LEFT SHIFT is Present. MCH (RBC) [Entitic mass] 31.6 pg 27.0-32.0 [facility] Work Phone: Neutrophils/100 WBC (Bld) 76.1 % 47-70 [facility] Work Phone: Nucleated RBC/100 WBC (Bld) [Ratio] 0 % 0-5 [facility] Work Phone: MCHC Auto (RBC) [Mass/Vol]on 10-02-2021 MCHC (RBC) [Mass/Vol] 33.9 g/dL 32-36 [facility] Work Phone: No Panel Informationon 10-02 Troponin I High Sensitivity 7 pg/mL 3.0-78.0 [facility] Work Phone: Comment on above: Please Note: New Angela t Units and Gender Specific Reference Ranges. For more information see Policy Stat Procedure [place] High Sensitivity Troponin (TNIH) and attachments. SARS-CoV-2 Antigen (Rapid) [facility] Work Phone: Estimated Creatinine Clearance Calc 52.37 ml/min [facility] Work Phone: Estimated GFR (MDRD) Amer 67 mL/min >60 [facility] Work Phone: Comment on above: GFR Calc Estimated GFR (MDRD) Non-Af Amer 56 mL/min >60 [facility] Work Phone: Comment on above: Non- GFR Calc Platelets bldon 10-02-2021 Platelets (Bld) [#/Vol] 387 10*3/uL 150-450 [facility] Work Phone: Serum or plasma calcium jhon urement (mass/volume)on 10-02-2021 Calcium [Mass/Vol] 9.3 mg/dL 8.5-10.1 [facility] Work Phone: Serum or plasma creatinine m easurement (mass/volume)on 10-02-2021 Creatinine [Mass/Vol] 1.35 mg/dL 0.70-1.30 [facility] Work Phone: Comment on above: The validity of the calculated GFR & GFRAA in patients over 70 years has not been determined. Clinical correlation is essential. Serum or plasma urea nitroge n measurement (mass/volume)on 10-02-2021 Urea nitrogen [Mass/Vol] 34 mg/dL 7-18 [facility] Work Phone: Thin prep Papanicolaou smear with manual screeningon 10-02-2021 Thin prep Papanicolaou smear with manual screening 11 5-15 [facility] Work Phone: Absolute lymphocyte counton 09-23-2021 Lymphocytes Auto (Unsp spec) [#/Vol] 2.42 10*3/uL 0.83-4.51 [facility] Work Phone: Basophil percentageon 2020 Bilirubin [Mass/Vol] 0.30 mg/dL 0.20-1.00 [facility] Work Phone: Comment on above: For patients on eltr ombopag therapy, use of Dimension [place] TBIL is not recommended. Chloride [Moles/Vol] 105 mmol/L 98-107 [facility] Work Phone: Eosinophils/100 WBC (Bld) 1.1 % 0-5 [facility] Work Phone: Glucose [Mass/Vol] 156 mg/dL 74-106 [facility] Work Phone: Comment on above: Fasting Glucose resu lt greater than or equal to 126 mg/dL suggests DIABETES MELLITUS per A.D.A. criteria.Please note revised GLUCOSE reference range effective 2017. Neutrophils (Bld) [#/Vol] 5.9 10*3/uL 2.0-7.7 [facility] Work Phone: Potassium [Moles/Vol] 4.6 mmol/L 3.5-5.1 [facility] Work Phone: Protein [Mass/Vol] 8.0 g/dL 6.4-8.2 [facility] Work Phone: [phone] Sodium [Moles/Vol] 137 mmol/L 136-145 [facility] Work Phone: WBC (Bld) [#/Vol] 9.2 10*3/uL 4.4-11.0 [facility] Work Phone: Blood erythrocytes count (nu mber/volume)on 09-23-2021 RBC (Bld) [#/Vol] 4.51 10*6/uL 4.6-6.2 [facility] Work Phone: Blood hemoglobin measurement (mass/volume)on 09-23-2021 Hemoglobin (Bld) [Mass/Vol] 14.3 g/dL 13.0-16. 5 [facility] Work Phone: Blood lymphocytes/100 leukoc yteson 09-23-2021 Lymphocytes/100 WBC (Bld) 26.2 % 19-41 [facility] Work Phone: Blood monocytes/100 leukocyt eson 09-23-2021 Monocytes/100 WBC (Bld) 7.9 % 0-10 [facility] Work Phone: Blood platelet mean volumeon 09-23-2021 Platelet mean volume (Bld) [Entitic vol] 9.3 fL 6.2-12.0 [facility] Work Phone: Determination of erythrocyte mean corpuscular volume (MCV)on 09-23-2021 MCV (RBC) [Entitic vol] 93.8 fL 80-94 [facility] Work Phone: Hematocrit Auto (Bld) [Volum e fraction]on 09-23-2021 Hematocrit (Bld) [Volume fraction] 42.3 % 40-54 [facility] Work Phone: Laboratory - Chemistry and C hemistry - challengeon 09-23-2021 ALP [Catalytic activity/Vol] 80 U/L 45-117 [facility] Work Phone: ALT [Catalytic activity/Vol] 41 U/L 16-61 [facility] Work Phone: CO2 [Moles/Vol] 24.0 mmol/L 21.0-32.0 [facility] Work Phone: Globulin (S) [Mass/Vol] 4.6 g/dL 2.2-4.2 [facility] Work Phone: Urea nitrogen/Creatinine [Mass ratio] 27.4 mg/mg 10-20 [facility] Work Phone: Laboratory - Hematology and Cell countson 09-23-2021 Basophils/100 WBC (Unsp spec) 0.4 % 0-1 [facility] Work Phone: Erythrocyte distribution width (RBC) [Entitic vol] 44.0 fL 35.1-43.9 [facility] Work Phone: Erythrocyte distribution width (RBC) [Ratio] 12.9 % 11.6-14.6 [facility] Work Phone: Immature granulocytes/100 WBC (Bld) 0.700 % 0.0-0.9 [facility] Work Phone: Comment on above: IG% - Immature Granu locytes (promyelocytes, myelocytes and metamyelocytes) > 1% indicates that a LEFT SHIFT is Present. MCH (RBC) [Entitic mass] 31.7 pg 27.0-32.0 [facility] Work Phone: Neutrophils/100 WBC (Bld) 63.7 % 47-70 [facility] Work Phone: Nucleated RBC/100 WBC (Bld) [Ratio] 0 % 0-5 [facility] Work Phone: MCHC Auto (RBC) [Mass/Vol]on 09-23-2021 MCHC (RBC) [Mass/Vol] 33.8 g/dL 32-36 [facility] Work Phone: No Panel Informationon 09-23 Estimated GFR (MDRD) Amer 80 mL/min >60 [facility] Work Phone: Comment on above: GFR Calc Estimated GFR (MDRD) Non-Af Amer 66 mL/min >60 [facility] Work Phone: Comment on above: Non- GFR Calc Thyroid Stimulating Hormone (TSH) 1.08 uIU/mL 0.358-3.74 [facility] Work Phone: Vitamin D 25-Hydroxy 34.2 ng/mL [facility] Work Phone: Comment on above: Vitamin D 25(OH) Sta tus Range Deficiency <20 ng/mL (50nmol/L) Insufficiency 20 - 30 ng/mL (50 - 75 nmol/L) Sufficiency 30 - 100 ng/mL (75 - 250 nmol/L) Toxicity >100 ng/mL (>250 nmol/L) Platelets bldon 09-23-2021 Platelets (Bld) [#/Vol] 398 10*3/uL 150-450 [facility] Work Phone: Serum or plasma albumin jhon urement (mass/volume)on 09-23-2021 Albumin [Mass/Vol] 3.4 g/dL 3.2-5.0 [facility] Work Phone: Serum or plasma albumin/glob ulin mass ratioon 09-23-2021 Albumin/Globulin [Mass ratio] 0.7 {ratio} 0.9-2.4 [facility] Work Phone: Serum or plasma calcium jhon urement (mass/volume)on 09-23-2021 Calcium [Mass/Vol] 9.7 mg/dL 8.5-10.1 [facility] Work Phone: Serum or plasma creatinine m easurement (mass/volume)on 09-23-2021 Creatinine [Mass/Vol] 1.17 mg/dL 0.70-1.30 [facility] Work Phone: Comment on above: The validity of the calculated GFR & GFRAA in patients over 70 years has not been determined. Clinical correlation is essential. Serum or plasma urea nitroge n measurement (mass/volume)on 09-23-2021 Urea nitrogen [Mass/Vol] 32 mg/dL 7-18 [facility] Work Phone: Thin prep Papanicolaou smear with manual screeningon 09-23-2021 Thin prep Papanicolaou smear with manual screening 19 U/L 15-37 [facility] Work Phone: Thin prep Papanicolaou smear with manual screening 8 5-15 [facility] Work Phone: Vital Signs Date Time Vital Sign Value Performing Clinician Faci lity 05-09-2025 14:03-0400 Body height 175.[address] Timmy Floyd MD Work Phone: [facility] 05-09-2025 14:03-0400 Body mass index (BMI) [Ratio] 28 kg/m2 Dr. Timmy Floyd MD Work Phone: [facility] 05-09-2025 14:03-0400 Body temperature 98.4 [degF] Dr. Timmy Floyd MD Work Phone: [facility] 05-09-2025 14:03-0400 Body weight 86.[address] Timmy Floyd MD Work Phone: [facility] 05-09-2025 14:03-0400 Diastolic blood pressure 66 mm[Hg] Dr. Timmy Floyd MD Work Phone: [facility] 05-09-2025 14:03-0400 Heart rate 84 /min Dr. Timmy Floyd MD Work Phone: [facility] 05-09-2025 14:03-0400 Respiratory rate 18 /min Dr. Timmy Floyd MD Work Phone: [facility] 05-09-2025 14:03-0400 SaO2% (BldA) [Mass fraction] 95 % Dr. Timmy Floyd MD Work Phone: [facility] 05-09-2025 14:03-0400 Systolic blood pressure 106 mm[Hg] Dr. Timmy Floyd MD Work Phone: [facility] 04-27-2025 15:01-0400 Body height 175.[address] Timmy Floyd MD Work Phone: [facility] 04-27-2025 15:01-0400 Body mass index (BMI) [Ratio] 28 kg/m2 Dr. Timmy Floyd MD Work Phone: [facility] 04-27-2025 15:01-0400 Body temperature 97.7 [degF] Dr. Timmy Floyd MD Work Phone: [facility] 04-27-2025 15:01-0400 Body weight 86.[address] Timmy Floyd MD Work Phone: [facility] 04-27-2025 15:01-0400 Diastolic blood pressure 58 mm[Hg] Dr. Timmy Floyd MD Work Phone: [facility] 04-27-2025 15:01-0400 Heart rate 77 /min Dr. Timmy Floyd MD Work Phone: [facility] 04-27-2025 15:01-0400 Respiratory rate 16 /min Dr. Timmy Floyd MD Work Phone: [facility] 04-27-2025 15:01-0400 SaO2% (BldA) [Mass fraction] 93 % Dr. Timmy Floyd MD Work Phone: [facility] 04-27-2025 15:01-0400 Systolic blood pressure 104 mm[Hg] Dr. Timmy Floyd MD Work Phone: [facility] 04-24-2025 10:04-0400 Body height 175.[address] Timmy Floyd MD Work Phone: [facility] 04-24-2025 10:04-0400 Body mass index (BMI) [Ratio] 27.8 kg/m2 Dr. Timmy Floyd MD Work Phone: [facility] 04-24-2025 10:04-0400 Body temperature 98.2 [degF] Dr. Timmy Floyd MD Work Phone: [facility] 04-24-2025 10:04-0400 Body weight 85.[address] Timmy Floyd MD Work Phone: [facility] 04-24-2025 10:04-0400 Diastolic blood pressure 69 mm[Hg] Dr. Timmy Floyd MD Work Phone: [facility] 04-24-2025 10:04-0400 Heart rate 69 /min Dr. Timmy Floyd MD Work Phone: [facility] 04-24-2025 10:04-0400 Respiratory rate 16 /min Dr. Timmy Floyd MD Work Phone: [facility] 04-24-2025 10:04-0400 SaO2% (BldA) [Mass fraction] 96 % Dr. Timmy Floyd MD Work Phone: [facility] 04-24-2025 10:04-0400 Systolic blood pressure 115 mm[Hg] Dr. Timmy Floyd MD Work Phone: [facility] 03-27-2025 11:45-0400 Body height 175.[address] Timmy Floyd MD Work Phone: [facility] 03-27-2025 11:45-0400 Body mass index (BMI) [Ratio] 28.2 kg/m2 Dr. Timmy Floyd MD Work Phone: [facility] 03-27-2025 11:45-0400 Body temperature 98.9 [degF] Dr. Timmy Floyd MD Work Phone: [facility] 03-27-2025 11:45-0400 Body weight 86.[address] Timmy Floyd MD Work Phone: [facility] 03-27-2025 11:45-0400 Diastolic blood pressure 71 mm[Hg] Dr. Timmy Floyd MD Work Phone: [facility] 03-27-2025 11:45-0400 Heart rate 90 /min Dr. Timmy Floyd MD Work Phone: [facility] 03-27-2025 11:45-0400 Respiratory rate 18 /min Dr. Timmy Floyd MD Work Phone: [facility] 03-27-2025 11:45-0400 SaO2% (BldA) [Mass fraction] 94 % Dr. Timmy Floyd MD Work Phone: [facility] 03-27-2025 11:45-0400 Systolic blood pressure 115 mm[Hg] Dr. Timmy Floyd MD Work Phone: [facility] 03-13-2025 13:43-0400 Body height 175.[address] Timmy Floyd MD Work Phone: [facility] 03-13-2025 13:43-0400 Body mass index (BMI) [Ratio] 28.2 kg/m2 Dr. Timmy Floyd MD Work Phone: [facility] 03-13-2025 13:43-0400 Body temperature 97.6 [degF] Dr. Timmy Floyd MD Work Phone: [facility] 03-13-2025 13:43-0400 Body weight 86.[address] Timmy Floyd MD Work Phone: [facility] 03-13-2025 13:43-0400 Diastolic blood pressure 66 mm[Hg] Dr. Timmy Floyd MD Work Phone: [facility] 03-13-2025 13:43-0400 Heart rate 86 /min Dr. Timmy Floyd MD Work Phone: [facility] 03-13-2025 13:43-0400 Respiratory rate 18 /min Dr. Timmy Floyd MD Work Phone: [facility] 03-13-2025 13:43-0400 SaO2% (BldA) [Mass fraction] 95 % Dr. Timmy Floyd MD Work Phone: [facility] 03-13-2025 13:43-0400 Systolic blood pressure 120 mm[Hg] Dr. Timmy Floyd MD Work Phone: [facility] 01-09-2025 15:05-0400 Body height 175.[address] Timmy Floyd MD Work Phone: [facility] 01-09-2025 15:05-0400 Body mass index (BMI) [Ratio] 28 kg/m2 Dr. Timmy Floyd MD Work Phone: [facility] 01-09-2025 15:05-0400 Body weight 86.[address] Timmy Floyd MD Work Phone: [facility] 01-09-2025 15:03-0400 Body temperature 98.4 [degF] Dr. Timmy Floyd MD Work Phone: [facility] 01-09-2025 15:03-0400 Diastolic blood pressure 65 mm[Hg] Dr. Timmy Floyd MD Work Phone: [facility] 01-09-2025 15:03-0400 Heart rate 95 /min Dr. Timmy Floyd MD Work Phone: [facility] 01-09-2025 15:03-0400 Respiratory rate 18 /min Dr. Timmy Floyd MD Work Phone: [facility] 01-09-2025 15:03-0400 SaO2% (BldA) [Mass fraction] 94 % Dr. Timmy Floyd MD Work Phone: [facility] 01-09-2025 15:03-0400 Systolic blood pressure 109 mm[Hg] Dr. Timmy Floyd MD Work Phone: [facility] 01-02-2025 15:17-0400 Body height 175.[address] Timmy Floyd MD Work Phone: [facility] 01-02-2025 15:17-0400 Body mass index (BMI) [Ratio] 27.7 kg/m2 Dr. Timmy Floyd MD Work Phone: [facility] 01-02-2025 15:17-0400 Body temperature 97.3 [degF] Dr. Timmy Floyd MD Work Phone: [facility] 01-02-2025 15:17-0400 Body weight 85.[address] Timmy Floyd MD Work Phone: [facility] 01-02-2025 15:17-0400 Diastolic blood pressure 60 mm[Hg] Dr. Timmy Floyd MD Work Phone: [facility] 01-02-2025 15:17-0400 Heart rate 80 /min Dr. Timmy Floyd MD Work Phone: [facility] 01-02-2025 15:17-0400 Respiratory rate 14 /min Dr. Timmy Floyd MD Work Phone: [facility] 01-02-2025 15:17-0400 SaO2% (BldA) [Mass fraction] 96 % Dr. Timmy Floyd MD Work Phone: [facility] 01-02-2025 15:17-0400 Systolic blood pressure 118 mm[Hg] Dr. Timmy Floyd MD Work Phone: [facility] 12-21-2024 15:44-0400 Body height 175.[address] Timmy Floyd MD Work Phone: [facility] 12-21-2024 15:44-0400 Body mass index (BMI) [Ratio] 28.2 kg/m2 Dr. Timmy Floyd MD Work Phone: [facility] 12-21-2024 15:44-0400 Body temperature 98 [degF] Dr. Timmy Floyd MD Work Phone: [facility] 12-21-2024 15:44-0400 Body weight 86.[address] Timmy Floyd MD Work Phone: [facility] 12-21-2024 15:44-0400 Diastolic blood pressure 78 mm[Hg] Dr. Timmy Floyd MD Work Phone: [facility] 12-21-2024 15:44-0400 Heart rate 84 /min Dr. Timmy Floyd MD Work Phone: [facility] 12-21-2024 15:44-0400 Respiratory rate 14 /min Dr. Timmy Floyd MD Work Phone: [facility] 12-21-2024 15:44-0400 SaO2% (BldA) [Mass fraction] 98 % Dr. Timmy Floyd MD Work Phone: [facility] 12-21-2024 15:44-0400 Systolic blood pressure 124 mm[Hg] Dr. Timmy Floyd MD Work Phone: [facility] 12-01-2024 13:28-0500 Body mass index (BMI) [Ratio] 29 kg/m2 Dr. Timmy Floyd MD Work Phone: [facility] 12-01-2024 13:28-0500 Body temperature 97.4 [degF] Dr. Timmy Floyd MD Work Phone: [facility] 12-01-2024 13:28-0500 Body weight 89.[address] Timmy Floyd MD Work Phone: [facility] 12-01-2024 13:28-0500 Diastolic blood pressure 78 mm[Hg] Dr. Timmy Floyd MD Work Phone: [facility] 12-01-2024 13:28-0500 Heart rate 86 /min Dr. Timmy Floyd MD Work Phone: [facility] 12-01-2024 13:28-0500 Respiratory rate 16 /min Dr. Timmy Floyd MD Work Phone: [facility] 12-01-2024 13:28-0500 SaO2% (BldA) [Mass fraction] 95 % Dr. Timmy Floyd MD Work Phone: [facility] 12-01-2024 13:28-0500 Systolic blood pressure 132 mm[Hg] Dr. Timmy Floyd MD Work Phone: [facility] 11-21-2024 15:52-0500 SaO2% (BldA) [Mass fraction] 98 % Dr. Timmy Floyd MD Work Phone: [facility] 11-21-2024 15:42-0500 Body temperature 98.2 [degF] Dr. Timmy Floyd MD Work Phone: [facility] 11-21-2024 15:42-0500 Diastolic blood pressure 78 mm[Hg] Dr. Timmy Floyd MD Work Phone: [facility] 11-21-2024 15:42-0500 Heart rate 93 /min Dr. Timmy Floyd MD Work Phone: [facility] 11-21-2024 15:42-0500 Respiratory rate 12 /min Dr. Timmy Floyd MD Work Phone: [facility] 11-21-2024 15:42-0500 Systolic blood pressure 130 mm[Hg] Dr. Timmy Floyd MD Work Phone: [facility] 11-11-2024 09:50-0500 Body mass index (BMI) [Ratio] 28.8 kg/m2 Dr. Timmy Floyd MD Work Phone: [facility] 11-11-2024 09:50-0500 Body weight 88.[address] Timmy Floyd MD Work Phone: [facility] 11-11-2024 09:50-0500 Diastolic blood pressure 74 mm[Hg] Dr. Timmy Floyd MD Work Phone: [facility] 11-11-2024 09:50-0500 Heart rate 70 /min Dr. Timmy Floyd MD Work Phone: [facility] 11-11-2024 09:50-0500 Respiratory rate 18 /min Dr. Timmy Floyd MD Work Phone: [facility] 11-11-2024 09:50-0500 SaO2% (BldA) [Mass fraction] 94 % Dr. iTmmy Floyd MD Work Phone: [facility] 11-11-2024 09:50-0500 Systolic blood pressure 125 mm[Hg] Dr. Timmy Floyd MD Work Phone: [facility] 12-03-2023 14:08-0500 Body height 175.[address] Timmy Floyd Work Phone: [facility] 12-03-2023 14:08-0500 Body mass index (BMI) [Ratio] 28 kg/m2 Dr. Timmy Floyd Work Phone: [facility] 12-03-2023 14:08-0500 Body temperature 97.2 [degF] Dr. Timmy Floyd Work Phone: [facility] 12-03-2023 14:08-0500 Body weight 86.[address] Timmy Floyd Work Phone: [facility] 12-03-2023 14:08-0500 Diastolic blood pressure 62 mm[Hg] Dr. Timmy Floyd Work Phone: [facility] 12-03-2023 14:08-0500 Heart rate 61 /min Dr. Timmy Floyd Work Phone: [facility] 12-03-2023 14:08-0500 Respiratory rate 16 /min Dr. Timmy Floyd Work Phone: [facility] 12-03-2023 14:08-0500 SaO2% (BldA) [Mass fraction] 95 % Dr. Timmy Floyd Work Phone: [facility] 12-03-2023 14:08-0500 Systolic blood pressure 120 mm[Hg] Dr. Timmy Floyd Work Phone: [facility] 08-28-2023 10:16-0500 Body mass index (BMI) [Ratio] 30.7 kg/m2 Dr. Timmy Floyd Work Phone: [facility] 08-28-2023 10:16-0500 Body temperature 97 [degF] Dr. Timmy Floyd Work Phone: [facility] 08-28-2023 10:16-0500 Body weight 94.[address] Timmy Floyd Work Phone: [facility] 08-28-2023 10:16-0500 Diastolic blood pressure 76 mm[Hg] Dr. Timmy Floyd Work Phone: [facility] 08-28-2023 10:16-0500 Heart rate 83 /min Dr. Timmy Floyd Work Phone: [facility] 08-28-2023 10:16-0500 Respiratory rate 16 /min Dr. Timmy Floyd Work Phone: [facility] 08-28-2023 10:16-0500 SaO2% (BldA) [Mass fraction] 96 % Dr. Timmy Floyd Work Phone: [facility] 08-28-2023 10:16-0500 Systolic blood pressure 122 mm[Hg] Dr. Timmy Floyd Work Phone: [facility] 05-11-2023 07:51-0400 Body height 175.[address] Adam Alex Work Phone: [facility] 05-11-2023 07:51-0400 Body mass index (BMI) [Ratio] 30 kg/m2 Dr. Adam Alex Work Phone: [facility] 05-11-2023 07:51-0400 Body temperature 97.3 [degF] Dr. Adam Alex Work Phone: [facility] 05-11-2023 07:51-0400 Body weight 92.[address] Adam Alex Work Phone: [facility] 05-11-2023 07:51-0400 Diastolic blood pressure 72 mm[Hg] Dr. Adam Alex Work Phone: [facility] 05-11-2023 07:51-0400 Heart rate 75 /min Dr. Adam Alex Work Phone: [facility] 05-11-2023 07:51-0400 Respiratory rate 18 /min Dr. dAam Alex Work Phone: [facility] 05-11-2023 07:51-0400 SaO2% (BldA) [Mass fraction] 95 % Dr. Adam Alex Work Phone: [facility] 05-11-2023 07:51-0400 Systolic blood pressure 124 mm[Hg] Dr. Adam Alex Work Phone: [facility] 04-24-2023 21:33-0400 Body height 175.[address] Adam Alex Work Phone: [facility] 04-24-2023 21:33-0400 Body mass index (BMI) [Ratio] 29.5 kg/m2 Dr. Adam Alex Work Phone: [facility] 04-24-2023 21:33-0400 Body temperature 97.6 [degF] Dr. Adam Alex Work Phone: [facility] 04-24-2023 21:33-0400 Body weight 90.[address] Adam Alex Work Phone: [facility] 04-24-2023 21:33-0400 Diastolic blood pressure 86 mm[Hg] Dr. Adam Alex Work Phone: [facility] 04-24-2023 21:33-0400 Heart rate 96 /min Dr. Adam Alex Work Phone: [facility] 04-24-2023 21:33-0400 Respiratory rate 18 /min Dr. Adam Alex Work Phone: [facility] 04-24-2023 21:33-0400 SaO2% (BldA) [Mass fraction] 95 % Dr. Adam Alex Work Phone: [facility] 04-24-2023 21:33-0400 Systolic blood pressure 155 mm[Hg] Dr. Adam Alex Work Phone: [facility] 02-03-2023 06:45-0400 Body mass index (BMI) [Ratio] 30.1 kg/m2 Dr. Adam Alex Work Phone: [facility] 02-03-2023 06:45-0400 Body temperature 97.1 [degF] Dr. Adam Alex Work Phone: [facility] 02-03-2023 06:45-0400 Body weight 92.[address] Adam Alex Work Phone: [facility] 02-03-2023 06:45-0400 Diastolic blood pressure 68 mm[Hg] Dr. Adam Alex Work Phone: [facility] 02-03-2023 06:45-0400 Heart rate 77 /min Dr. Adam Alex Work Phone: [facility] 02-03-2023 06:45-0400 Respiratory rate 18 /min Dr. Adam Alex Work Phone: [facility] 02-03-2023 06:45-0400 SaO2% (BldA) [Mass fraction] 94 % Dr. Adam Alex Work Phone: [facility] 02-03-2023 06:45-0400 Systolic blood pressure 116 mm[Hg] Dr. Adam Alex Work Phone: [facility] 05-15-2022 08:15-0400 Body height 175.[address] Adam Alex Work Phone: [facility] Work Phone: 05-15-2022 08:15-0400 Body mass index (BMI) [Ratio] 28 kg/m2 Dr. Adam Alex Work Phone: [facility] Work Phone: 05-15-2022 08:15-0400 Body temperature 97.4 [degF] Dr. Adam Alex Work Phone: [facility] Work Phone: 05-15-2022 08:15-0400 Body weight 86.[address] Adam Alex Work Phone: [facility] Work Phone: 05-15-2022 08:15-0400 Diastolic blood pressure 71 mm[Hg] Dr. Adam Alex Work Phone: [facility] Work Phone: 05-15-2022 08:15-0400 Heart rate 89 /min Dr. Adam Alex Work Phone: [facility] Work Phone: 05-15-2022 08:15-0400 Respiratory rate 16 /min Dr. Adam Alex Work Phone: [facility] Work Phone: 05-15-2022 08:15-0400 SaO2% (BldA) [Mass fraction] 96 % Dr. Adam Alex Work Phone: [facility] Work Phone: 05-15-2022 08:15-0400 Systolic blood pressure 126 mm[Hg] Dr. Adam Alex Work Phone: [facility] Work Phone: 04-03-2022 10:34-0400 Body height 175.[address] Adam Alex Work Phone: [facility] Work Phone: 04-03-2022 10:34-0400 Body mass index (BMI) [Ratio] 30.4 kg/m2 Dr. Adam Alex Work Phone: [facility] Work Phone: 04-03-2022 10:34-0400 Body weight 93.[address] Adam Alex Work Phone: [facility] Work Phone: 04-03-2022 10:34-0400 Diastolic blood pressure 61 mm[Hg] Dr. Adam Alex Work Phone: [facility] Work Phone: 04-03-2022 10:34-0400 Heart rate 72 /min Dr. Adam Alex Work Phone: [facility] Work Phone: 04-03-2022 10:34-0400 Respiratory rate 16 /min Dr. Adam Alex Work Phone: [facility] Work Phone: 04-03-2022 10:34-0400 Systolic blood pressure 115 mm[Hg] Dr. Adam Alex Work Phone: [facility] Work Phone: 03-31-2022 13:46-0400 Body temperature 98.1 [degF] Dr. Adam Alex Work Phone: [facility] Work Phone: 03-31-2022 13:46-0400 Diastolic blood pressure 60 mm[Hg] Dr. Adam Alex Work Phone: [facility] Work Phone: 03-31-2022 13:46-0400 Heart rate 63 /min Dr. Adam Alex Work Phone: [facility] Work Phone: 03-31-2022 13:46-0400 Respiratory rate 18 /min Dr. Adam Alex Work Phone: [facility] Work Phone: 03-31-2022 13:46-0400 SaO2% (BldA) [Mass fraction] 98 % Dr. Adam Alxe Work Phone: [facility] Work Phone: 03-31-2022 13:46-0400 Systolic blood pressure 126 mm[Hg] Dr. Adam Alex Work Phone: [facility] Work Phone: 03-31-2022 00:26-0400 Body height 175.[address] Adam Alex Work Phone: [facility] Work Phone: 03-31-2022 00:26-0400 Body mass index (BMI) [Ratio] 30.7 kg/m2 Dr. Adam Alex Work Phone: [facility] Work Phone: 03-31-2022 00:26-0400 Body weight 94.[address] Adam Alex Work Phone: [facility] Work Phone: 03-26-2022 08:05-0400 Body mass index (BMI) [Ratio] 30.1 kg/m2 Dr. Adam Alex Work Phone: [facility] Work Phone: 03-26-2022 08:05-0400 Body weight 92.[address] Adam Alex Work Phone: [facility] Work Phone: 03-26-2022 08:05-0400 Diastolic blood pressure 71 mm[Hg] Dr. Adam Alex Work Phone: [facility] Work Phone: 03-26-2022 08:05-0400 Heart rate 74 /min Dr. Adam Alex Work Phone: [facility] Work Phone: 03-26-2022 08:05-0400 SaO2% (BldA) [Mass fraction] 95 % Dr. Adam Alex Work Phone: [facility] Work Phone: 03-26-2022 08:05-0400 Systolic blood pressure 117 mm[Hg] Dr. Adam Alex Work Phone: [facility] Work Phone: 02-26-2022 07:50-0400 Body temperature 97.1 [degF] Dr. Adam Alex Work Phone: [facility] Work Phone: 02-26-2022 07:50-0400 Diastolic blood pressure 63 mm[Hg] Dr. Adam Alex Work Phone: [facility] Work Phone: 02-26-2022 07:50-0400 Heart rate 67 /min Dr. Adam Alex Work Phone: [facility] Work Phone: 02-26-2022 07:50-0400 Respiratory rate 14 /min Dr. Adam Alex Work Phone: [facility] Work Phone: 02-26-2022 07:50-0400 SaO2% (BldA) [Mass fraction] 95 % Dr. Adam Alex Work Phone: [facility] Work Phone: 02-26-2022 07:50-0400 Systolic blood pressure 100 mm[Hg] Dr. Adam Alex Work Phone: [facility] Work Phone: 02-26-2022 06:43-0400 Body height 175.[address] Adam Alex Work Phone: [facility] Work Phone: 02-26-2022 06:43-0400 Body mass index (BMI) [Ratio] 30.2 kg/m2 Dr. Adam Alex Work Phone: [facility] Work Phone: 02-26-2022 06:43-0400 Body weight 92.[address] Adam Alex Work Phone: [facility] Work Phone: 02-20-2022 14:18-0400 Body mass index (BMI) [Ratio] 30.2 kg/m2 Dr. Adam Alex Work Phone: [facility] Work Phone: 02-20-2022 14:18-0400 Body temperature 97.7 [degF] Dr. Adam Alex Work Phone: [facility] Work Phone: 02-20-2022 14:18-0400 Body weight 92.[address] Adam Alex Work Phone: [facility] Work Phone: 02-20-2022 14:18-0400 Diastolic blood pressure 74 mm[Hg] Dr. Adam Alex Work Phone: [facility] Work Phone: 02-20-2022 14:18-0400 Heart rate 77 /min Dr. Adam Alex Work Phone: [facility] Work Phone: 02-20-2022 14:18-0400 Respiratory rate 17 /min Dr. Adam Alex Work Phone: [facility] Work Phone: 02-20-2022 14:18-0400 SaO2% (BldA) [Mass fraction] 95 % Dr. Adam Alex Work Phone: [facility] Work Phone: 02-20-2022 14:18-0400 Systolic blood pressure 116 mm[Hg] Dr. Adam Alex Work Phone: [facility] Work Phone: 02-20-2022 14:18-0400 Body mass index (BMI) [Ratio] 30.2 kg/m2 Dr. Adam Alex Work Phone: [facility] Work Phone: 02-20-2022 14:18-0400 Body temperature 97.7 [degF] Dr. Adam Alex Work Phone: [facility] Work Phone: 02-20-2022 14:18-0400 Body weight 92.[address] Adam Alex Work Phone: [facility] Work Phone: 02-20-2022 14:18-0400 Diastolic blood pressure 74 mm[Hg] Dr. Adam Alex Work Phone: [facility] Work Phone: 02-20-2022 14:18-0400 Heart rate 77 /min Dr. Adam Alex Work Phone: [facility] Work Phone: 02-20-2022 14:18-0400 Respiratory rate 17 /min Dr. Adam Alex Work Phone: [facility] Work Phone: 02-20-2022 14:18-0400 SaO2% (BldA) [Mass fraction] 95 % Dr. Adam Alex Work Phone: [facility] Work Phone: 02-20-2022 14:18-0400 Systolic blood pressure 116 mm[Hg] Dr. Adam Alex Work Phone: [facility] Work Phone: 02-06-2022 13:43-0400 Body height 175.[address] Adam Alex Work Phone: [facility] Work Phone: 02-06-2022 13:43-0400 Body weight 90.[address] Adam Alex Work Phone: [facility] Work Phone: 02-06-2022 13:43-0400 Heart rate 82 /min Dr. Adam Alex Work Phone: [facility] Work Phone: 02-06-2022 13:43-0400 SaO2% (BldA) [Mass fraction] 98 % Dr. Adam Alex Work Phone: [facility] Work Phone: 01-20-2022 14:02-0400 Body mass index (BMI) [Ratio] 29.5 kg/m2 Dr. Adam Alex Work Phone: [facility] Work Phone: 01-20-2022 14:02-0400 Body temperature 98.9 [degF] Dr. Adam Alex Work Phone: [facility] Work Phone: 01-20-2022 14:02-0400 Body weight 90.[address] Adam Alex Work Phone: [facility] Work Phone: 01-20-2022 14:02-0400 Diastolic blood pressure 70 mm[Hg] Dr. Adam Alex Work Phone: [facility] Work Phone: 01-20-2022 14:02-0400 Heart rate 88 /min Dr. Adam Alex Work Phone: [facility] Work Phone: 01-20-2022 14:02-0400 Respiratory rate 17 /min Dr. Adam Alex Work Phone: [facility] Work Phone: 01-20-2022 14:02-0400 SaO2% (BldA) [Mass fraction] 95 % Dr. Adam Alex Work Phone: [facility] Work Phone: 01-20-2022 14:02-0400 Systolic blood pressure 106 mm[Hg] Dr. Adam Alex Work Phone: [facility] Work Phone: 01-20-2022 14:02-0400 Body height 175.[address] Adam Alex Work Phone: [facility] Work Phone: 01-20-2022 14:02-0400 Body mass index (BMI) [Ratio] 29.5 kg/m2 Dr. Adam Alex Work Phone: [facility] Work Phone: 01-20-2022 14:02-0400 Body temperature 98.9 [degF] Dr. Adam Alex Work Phone: [facility] Work Phone: 01-20-2022 14:02-0400 Body weight 90.[address] Adam Alex Work Phone: [facility] Work Phone: 01-20-2022 14:02-0400 Diastolic blood pressure 70 mm[Hg] Dr. Adam Alex Work Phone: [facility] Work Phone: 01-20-2022 14:02-0400 Heart rate 88 /min Dr. Adam Alex Work Phone: [facility] Work Phone: 01-20-2022 14:02-0400 Respiratory rate 17 /min Dr. Adam Alex Work Phone: [facility] Work Phone: 01-20-2022 14:02-0400 SaO2% (BldA) [Mass fraction] 95 % Dr. Adam Alex Work Phone: [facility] Work Phone: 01-20-2022 14:02-0400 Systolic blood pressure 106 mm[Hg] Dr. Adam Alex Work Phone: [facility] Work Phone: 01-16-2022 07:03-0400 Body height 175.[address] Adam Alex Work Phone: [facility] Work Phone: 01-16-2022 07:03-0400 Body weight 90.[address] Adam Alex Work Phone: [facility] Work Phone: 01-15-2022 08:16-0400 Body mass index (BMI) [Ratio] 29.5 kg/m2 Dr. Adam Alex Work Phone: [facility] Work Phone: 01-02-2022 11:37-0400 Body mass index (BMI) [Ratio] 29.5 kg/m2 Dr. Adam Alex Work Phone: [facility] Work Phone: 01-02-2022 11:37-0400 Body weight 90.[address] Adam Alex Work Phone: [facility] Work Phone: 01-02-2022 11:37-0400 Diastolic blood pressure 62 mm[Hg] Dr. Adam Alex Work Phone: [facility] Work Phone: 01-02-2022 11:37-0400 Heart rate 82 /min Dr. Adam Alex Work Phone: [facility] Work Phone: 01-02-2022 11:37-0400 Respiratory rate 18 /min Dr. Adam Alex Work Phone: [facility] Work Phone: 01-02-2022 11:37-0400 Systolic blood pressure 120 mm[Hg] Dr. Adam Alex Work Phone: [facility] Work Phone: 01-02-2022 11:37-0400 Body mass index (BMI) [Ratio] 29.5 kg/m2 Dr. Adam Alex Work Phone: [facility] Work Phone: 01-02-2022 11:37-0400 Body weight 90.[address] Adam Alex Work Phone: [facility] Work Phone: 01-02-2022 11:37-0400 Diastolic blood pressure 62 mm[Hg] Dr. Adam Alex Work Phone: [facility] Work Phone: 01-02-2022 11:37-0400 Heart rate 82 /min Dr. Adam Alex Work Phone: [facility] Work Phone: 01-02-2022 11:37-0400 Respiratory rate 18 /min Dr. Adam Alex Work Phone: [facility] Work Phone: 01-02-2022 11:37-0400 Systolic blood pressure 120 mm[Hg] Dr. Adam Alex Work Phone: [facility] Work Phone: 10-02-2021 18:37-0500 Diastolic blood pressure 72 mm[Hg] Dr. Adam Alex Work Phone: [facility] Work Phone: 10-02-2021 18:37-0500 Heart rate 93 /min Dr. Adam Alex Work Phone: [facility] Work Phone: 10-02-2021 18:37-0500 Respiratory rate 20 /min Dr. Adam Alex Work Phone: [facility] Work Phone: 10-02-2021 18:37-0500 SaO2% (BldA) [Mass fraction] 95 % Dr. Adam Alex Work Phone: [facility] Work Phone: 10-02-2021 18:37-0500 Systolic blood pressure 119 mm[Hg] Dr. Adam Alex Work Phone: [facility] Work Phone: 10-02-2021 13:52-0500 Body mass index (BMI) [Ratio] 29.5 kg/m2 Dr. Adam Alex Work Phone: [facility] Work Phone: 10-02-2021 13:52-0500 Body temperature 98.5 [degF] Dr. Adam Alex Work Phone: [facility] Work Phone: 10-02-2021 13:52-0500 Body weight 90.[address] Adam Alex Work Phone: [facility] Work Phone: Encounters Encounter Date Encounter Type Care Provider Facility Start: 05-19-2025 End: 05-19-2025 Patient encounter procedure Robert Flores DO -[facility] Work Phone: Start: 05-19-2025 End: 05-19-[address] Timmy Floyd MD Work Phone: -[facility] Start: 05-19-2025 End: 05-19-2025 ambulatory Robert Flores Facility:[facility] Start: 05-09-2025 End: 05-09-[address] Miles Armendariz MD -[facility] [place] Work Phone: Start: 05-09-2025 End: 05-09-[address] Timmy Floyd MD Work Phone: -[facility] Start: 04-27-2025 End: 04-27-[address] Timmy Floyd MD -[facility] Work Phone: Start: 04-27-2025 End: 04-27-[address] Timmy Floyd MD Work Phone: -[facility] Start: 04-27-2025 End: 04-27-[address] Timmy Floyd MD Work Phone: -Ultrasound [facility] Start: 04-27-2025 End: 04-27-[address] Miles Armendariz MD -Ultrasound [facility] Work Phone: Start: 04-27-2025 End: 04-27-2025 ambulatory Miles Armendariz Facility:[facility] Start: 04-24-2025 End: 04-24-[address] Miles Armendariz MD -[facility] Work Phone: Start: 04-24-2025 End: 04-24-[address] Timmy Floyd MD Work Phone: [facility] [place] Start: 04-21-2025 End: 04-21-[address] Timmy Floyd MD Work Phone: -Laboratory Start: 04-21-2025 End: 04-21-[address] Timmy Floyd MD -Laboratory Work Phone: Start: 04-21-2025 End: 04-21-2025 ambulatory Timmy Floyd Facility:[facility] Start: 03-27-2025 End: 03-27-[address] Timmy Floyd MD Work Phone: [facility] Work Phone: Start: 03-27-2025 End: 03-27-[address] Miles Armendariz MD -Cat Scan [facility] Work Phone: Start: 03-27-2025 End: 03-27-[address] Miles Armendariz MD -[facility] Work Phone: Start: 03-27-2025 End: 03-27-[address] Timmy Floyd MD Work Phone: [facility] Work Phone: Start: 03-27-2025 End: 03-27-2025 ambulatory [facility] Facility:[facility] Start: 03-20-2025 End: 03-20-[address] Timmy Floyd MD Work Phone: [facility] Work Phone: Start: 03-20-2025 End: 03-20-[address] Miles Armendariz MD -Laboratory Work Phone: Start: 03-20-2025 End: 03-20-2025 ambulatory [facility] Facility:[facility] Start: 03-13-2025 End: 03-13-2025 Patient encounter procedure Luna MEHTA -[facility] Work Phone: Start: 03-13-2025 End: 03-13-[address] Timmy Floyd MD Work Phone: [facility] Work Phone: Start: 02-09-2025 End: 02-09-[address] Timmy Floyd MD Work Phone: [facility] Work Phone: Start: 02-09-2025 End: 02-09-[address] Miles Armendariz MD -Radiology, [facility] Work Phone: Start: 02-09-2025 End: 02-09-2025 ambulatory [facility] Facility:[facility] Start: 01-09-2025 End: 01-09-[address] Miles Armendariz MD -[facility] Work Phone: Start: 01-09-2025 End: 01-09-2025 ambulatory Robert Flores Facility:[facility] Start: 01-02-2025 End: 01-02-[address] Timmy Floyd MD -[facility] Work Phone: Start: 01-02-2025 End: 01-02-2025 ambulatory Timmy Floyd Facility:[facility] Start: 12-29-2024 End: 12-29-[address] Timmy Floyd MD Work Phone: [facility] Work Phone: Start: 12-29-2024 End: 12-29-2024 Patient encounter procedure Sean ERNST -[facility] Work Phone: Start: 12-29-2024 End: 12-29-2024 ambulatory Sean ERNST Facility:[facility] Start: 12-21-2024 End: 12-21-2024 Patient encounter procedure Sean ERNST -[facility] Work Phone: Start: 12-21-2024 End: 12-21-2024 ambulatory Timmy Floyd Facility:[facility] Start: 12-16-2024 End: 12-16-[address] Timmy Floyd MD Work Phone: [facility] Work Phone: Start: 12-16-2024 End: 12-16-2024 Patient encounter procedure Robert Flores DO -Laboratory Work Phone: Start: 12-16-2024 End: 12-16-2024 Patient encounter procedure Robert Flores DO -[facility] Work Phone: Start: 12-16-2024 End: 12-16-2024 ambulatory Robert Flores Facility:[facility] Start: 12-16-2024 End: 12-16-2024 ambulatory Robert Shivani Facility:[facility] Start: 12-01-2024 End: 12-01-[address] Kelby Seth MD -[facility] Start: 12-01-2024 End: 12-01-2024 ambulatory Efewongbe Oleghe Facility:[facility] Start: 11-21-2024 End: 11-21-2024 Patient encounter procedure Quirino Jerez PA -[facility] Work Phone: Start: 11-21-2024 End: 11-21-2024 ambulatory Efewongbe Oleghe Facility:[facility] Start: 11-11-2024 End: 11-11-2024 Patient encounter procedure Sarita Murillo SC -[facility] Work Phone: Start: 11-11-2024 End: 11-11-2024 ambulatory Efewongbe Oleghe Facility:[facility] Start: 08-18-2024 ambulatory Efewongbe Oleghe Facili ty:[facility] Start: 08-18-2024 End: 08-18-2024 ambulatory Efewongbe Olee Facility:[facility] Start: 08-09-2024 End: 08-09-2024 ambulatory Efewongbe Oleghe Facility:[facility] Start: 07-13-2024 End: 07-13-2024 ambulatory Efewongbe Oleghe Facility:[facility] Start: 06-29-2024 End: 06-29-2024 ambulatory Efewongbe Oleghe Facility:[facility] Start: 06-28-2024 End: 06-29-2024 ambulatory Efewongbe Oleghe Facility:[facility] Start: 06-28-2024 End: 06-28-2024 ambulatory Efewongbe Oleghe Facility:[facility] Start: 06-17-2024 End: 06-17-2024 ambulatory Era Mason Facility:[facility] Start: 06-10-2024 End: 06-10-2024 ambulatory Efewongbe Oleghe Facility:[facility] Start: 06-10-2024 End: 06-10-2024 ambulatory Efewongbe Olee Facility:[facility] Start: 12-03-2023 End: 12-03-[address] Timmy Floyd Work Phone: [facility] Work Phone: Start: 12-03-2023 End: 12-03-[address] Timmy Floyd Work Phone: [facility]-Laboratory, [facility] Start: 12-03-2023 End: 12-03-[address] Timmy Floyd Work Phone: [facility] Internal Medicine Work Phone: Start: 11-03-2023 End: 11-03-[address] Timmy Floyd Work Phone: [facility] Gastroenterology Work Phone: Start: 08-28-2023 End: 08-28-[address] Timmy Floyd Work Phone: [facility] Internal Medicine Work Phone: Start: 05-11-[address] Adam Alex Work Phone: [facility] Start: 05-11-2023 End: 05-11-[address] Adam Alex Work Phone: [facility] Work Phone: Start: 05-11-2023 End: 05-11-2023 Encounter for general adult medical examination without abnormal findings Dr. Adam Alex Work Phone: [facility] Start: 05-11-2023 End: 05-11-[address] Adam Alex Work Phone: [facility] Internal Medicine Work Phone: Start: 04-24-2023 End: 04-24-2023 Emergency department patient visit Dr. Adam Alex Work Phone: [facility]-Emergency Department Work Phone: Start: 02-03-2023 End: 02-03-[address] [facility] Work Phone: Start: 05-15-2022 End: 05-15-[address] [facility] Start: 04-03-2022 End: 04-03-[address] Adam Alex Work Phone: [facility] Start: 04-01-2022 End: 04-01-[address] Adam Alex Work Phone: [facility]-Laboratory, Phy Office 3rd Flr Start: 03-31-2022 Non-patient / Non-visit Dr. Adam Alex Work Phone: [facility] Start: 03-30-2022 Non-patient / Non-visit Dr. Adam Alex Work Phone: [facility] Start: 03-30-2022 End: 03-31-2022 Evaluation and management of inpatient Dr. Adam Alex Work Phone: [facility]-Medical Surgical 3 Start: 03-26-2022 End: 03-26-[address] Adam Alex Work Phone: [facility] Start: 02-26-2022 Non-patient / Non-visit Dr. Adam Alex Work Phone: [facility] Start: 02-26-2022 End: 02-26-2022 Admission to same day surgery center Dr. Adam Alex Work Phone: [facility]-Endoscopy Start: 02-20-2022 End: 02-20-[address] Adam Alex [facility] Start: 02-07-2022 Non-patient / Non-visit Dr. Adam Alex Work Phone: [facility] Start: 02-06-2022 End: 02-06-[address] Adam Alex [facility] Start: 01-30-2022 Non-patient / Non-visit Dr. Adam Alex Work Phone: [facility] Start: 01-30-2022 End: 01-30-[address] Adam Alex [facility] Start: 01-24-2022 Non-patient / Non-visit Dr. Adam Alex Work Phone: [facility] Start: 01-24-2022 End: 01-24-[address] Adam Alex Work Phone: [facility]-Cardiovascular Services Start: 01-20-2022 End: 01-20-[address] Adam Alex Work Phone: [facility]-Laboratory Start: 01-16-2022 End: 01-16-2022 Admission to same day surgery center Dr. Adam Alex Work Phone: [facility]-Morgue Attendant/Special Procedures Start: 01-11-2022 Non-patient / Non-visit Dr. Adam Alex Work Phone: [facility] Start: 01-10-2022 End: 01-10-[address] Adam Alex [facility] Start: 01-10-2022 Non-patient / Non-visit Dr. Adam Alex Work Phone: [facility] Start: 01-02-2022 End: 01-02-[address] Adam Alex Work Phone: [facility]-Laboratory Start: 01-02-2022 End: 01-02-[address] Adam Alex Work Phone: [facility] Start: 12-18-2021 End: 12-18-[address] Adam Alex Work Phone: [facility] Start: 10-02-2021 End: 10-02-2021 Emergency department patient visit Dr. Adam Alex Work Phone: [facility]-Emergency Department Start: 09-23-[address] Adam Alex Work Phone: [facility]-Laboratory, Phy Office 3rd Flr Start: 09-18-2021 End: 09-18-[address] Adam Alex Work Phone: [facility] Procedures Date Procedure Procedure Detail Performing Clinician Start: 05-19-2025 Albumin/Globulin ratio Dr. Timmy Floyd MD Work Phone: Start: 05-19-[address] Timmy Floyd MD Work Phone: Comment on above: The atypical pANCA pattern has been obse rved in asignificant percentage of patients with ulcerative colitis,primary sclerosing cholangitis and autoimmune hepatitis. Start: 05-19-[address] Timmy Floyd MD Work Phone: Comment on above: Performed at: [facility] [employer] [id number] [place], [place] [id number] Director: Minh Maradiaga PhD, Phone: [phone] at: [facility] Lab[address] [id number] Director: Elena Hernández MD, Phone: [phone] Start: 05-19-[address] Timmy Floyd MD Work Phone: Start: 05-19-2025 Endomysial antibody IgA level Dr. Gal Floyd MD Work Phone: Start: 05-19-[address] Timmy Floyd MD Work Phone: Start: 05-19-[address] Mary Lou Floyd MD Work Phone: Start: 05-19-[address] Timmy Floyd MD Work Phone: Start: 05-19-[address] Timmy Floyd MD Work Phone: Comment on above: Performed at: [address] [id number] Director: Elena Hernández MD, Phone: [phone] Start: 05-19-[address] Timmy Floyd MD Work Phone: Start: 05-19-2025 Total iron binding capacity measurement Dr. Timmy Floyd MD Work Phone: Start: 04-27-2025 Ultras[address] elast[address] of liver Dr. [...] to determine out of range values.Performed at: [address] [id number] Director: Minh Maradiaga PhD, Phone: [phone] Start: 03-20-[address] Mary [...] Date Care Activity Detail Author Start: 05-15-2022 [facility] Work Phone: Start: 03-31-2022 Patient discharge [facility] Work Phone: Start: 03-31-2022 Following clinical pathway protocol [facility] Work Phone: Start: 03-31-2022 Assessment of risk of venous thromboembolism [facility] Work Phone: Start: 03-31-2022 Insertion of catheter into peripheral vein [facility] Work Phone: Start: 03-31-2022 Providing care according to standard [facility] Work Phone: Start: 03-31-2022 Provision of activity privileges [facility] Work Phone: Start: 03-31-2022 Referral to service [facility] Work Phone: Start: 03-31-2022 End: 03-31-2022 [facility] Work Phone: Start: 03-30-2022 Admission procedure [facility] Work Phone: Start: 02-26-2022 Egd insert guide wire dilator passage esophagus EGD GUIDE WIRE INSERTION [facility] Work Phone: Start: 02-26-2022 Egd transoral biopsy single/multiple EGD BIOPSY SINGLE/MULTIPLE [facility] Work Phone: Start: 02-26-2022 Patient discharge [facility] Work Phone: Start: 09-18-2021 Patient referral [facility] Work Phone: Acute hepatitis 2000 panel - Serum [facility] Alternaria alternata IgE Ab [Units/volume] in Serum [facility] Work Phone: Ugandan Cockroach I gE Ab [Units/volume] in Serum [facility] Work Phone: Ugandan house dust mite IgE Ab [Units/volume] in Serum [facility] Work Phone: Aspergillus fumigatus RAST [facility] Work Phone: Basic metabolic 2008 panel with ionized calcium - Serum or Plasma [facility] Bermuda grass IgE Ab [Units/volume] in Serum [facility] Work Phone: Box elder RAST [facility] Work Phone: C reactive protein [Mass/volume] in Serum or Plasma [facility] C reactive protein [Mass/volume] in Serum or Plasma [facility] Cat dander RAST [facility] Work Phone: Catheterization of l eft heart [facility] Work Phone: CBC W Auto Different ial panel - Blood [facility] CBC W Auto Different ial panel - Blood [facility] Celiac disease screen [facility] Ceruloplasmin [Mass/ volume] in Serum or Plasma [facility] Cladosporium herbaru m IgE Ab [Units/volume] in Serum [facility] Work Phone: Cobalamin (Vitamin B 12) [Mass/volume] in Serum or Plasma [facility] Common Ragweed IgE A b [Units/volume] in Serum [facility] Work Phone: Complement C3 [Mass/ volume] in Serum or Plasma [facility] Complement C4 [Mass/ volume] in Serum or Plasma [facility] Complement total hem olytic CH50 [Units/volume] in Serum or Plasma [facility] metabo lic 1999 panel - Serum or Plasma [facility] metabo [facility] 1999 panel - Serum or Plasma [facility] Gallia RAST [facility] Work Phone: CT Abdomen and Pelvi s W contrast IV [facility] CT Neck W contrast IV [facility] Dog epithelium IgE A b [Units/volume] in Serum [facility] Work Phone: Erythrocyte sediment ation rate [facility] Erythrocyte sediment ation rate [facility] house dust mite IgE Ab [Units/volume] in Serum [facility] Work Phone: Ferritin [Mass/volum e] in Serum or Plasma [facility] Immunoglobulin E measurement [facility] Work Phone: Immunoglobulin measurement [facility] Immunoglobulin measurement [facility] Immunoglobulin measurement [facility] Iron and Iron bindin g capacity panel - Serum or Plasma [facility] Lactate dehydrogenas e measurement [facility] Lactate dehydrogenas e measurement [facility] Lactate dehydrogenas e measurement [facility] Liver stiffness by US.transient elastography [facility] Mouse urine proteins [facility] Work Phone: Patient Education [facility] Work Phone: Patient referral [facility] Work Phone: Pecan or Derby Nut IgE Ab [Units/volume] in Serum [facility] Work Phone: Prothrombin time [facility] Rough Pigweed IgE Ab [Units/volume] in Serum [facility] Work Phone: Serum immunofixation [facility] Serum immunofixation [facility] Serum immunofixation [facility] Sheep Ontonagon IgE Ab [Units/volume] in Serum [facility] Work Phone: Silver Birch IgE Ab [Units/volume] in Serum [facility] Work Phone: Sebastián IgE Ab [Units/volume] in Serum [facility] Work Phone: Tree pollen RAST [facility] Work Phone: Urate [Mass/volume] in Serum or Plasma [facility] Vitamin D, 1,25-dihy droxy measurement [facility] Vitamin D, 25-hydrox y measurement [facility] Holden RAST [facility] Work Phone: White Mandeep IgE Ab [Units/volume] in Serum [facility] Work Phone: White Elm IgE Ab [Units/volume] in Serum [facility] Work Phone: White mulberry IgE A b [Units/volume] in Serum [facility] Work Phone: [facility] [place] Immunization Date Immunization Notes Care Provider Fa [facility] 10-08-2021 Covid (Moderna) Dr. Adam Alex Work Phone: [facility] 02-09-2021 Covid (Moderna) Dr. Adam Alex Work Phone: [facility] 01-10-2021 Covid (Moderna) Dr. Adam Alex Work Phone: [facility] 07-14-[address] Adam Alex Work Phone: [facility] Payers Date Payer Category Payer Self-pay [id number] 2023 Medicare [id number] 2015 Unknown [id number] Unknown [facility] [id number] Unknown [id number] 2.16.840.1.871497.3.579.2.462 Unknown [id number] 2.16.840.1.753232.3.579.2.462 Unknown [id number] 2.16.840.1.199660.3.579.2.462 Unknown [id number] 2..840.1.224315.3.579.2.462 Unknown [id number] 2..840.1.732259.3.579.2.462 Unknown [id number] 2..840.1.497137.3.579.2.462 Unknown [id number] 2..840.1.979329.3.579.2.462 Unknown [id number] 2.840.1.793721.3.579.2.462 Unknown [id number] 2.840.1.973654.3.579.2.462 Unknown [id number] .840.1.890341.3.579.2.462 Unknown [id number] .840.1.136141.3.579.2.462 Unknown [id number] 2.840.1.847876.3.579.2.462 Unknown [id number] .840.1.026011.3.579.2.462 Unknown [id number] .840.1.903854.3.579.2.462 Unknown [id number] .840.1.049137.3.579.2.462 Unknown [id number] 2..840.1.005184.3.579.2.462 Unknown [id number] 2..840.1.987594.3.579.2.462 Unknown [id number] 2..840.1.256820.3.579.2.462 Unknown [id number] 2.16.840.1.215632.3.579.2.462 Unknown [id number] 2.16.840.1.496068.3.579.2.462 Unknown [id number] 2.16.840.1.484169.3.579.2.462 Unknown [id number] 2.16.840.1.429834.3.579.2.462 Unknown [id number] 2.16.840.1.566844.3.579.2.462 Unknown [id number] 2.16.840.1.772536.3.579.2.462 Unknown [id number] 2.16.840.1.307988.3.579.2.462 Unknown [id number] 2.16.840.1.042391.3.579.2.462 Unknown [id number] 2.16840.1.196258.3.579.2.462 Unknown [id number] 2.16840.1.140481.3.579.2.462 Unknown [id number] 2.16.840.1.980935.3.579.2.462 Unknown [id number] 2.16.840.1.079611.3.579.2.462 Unknown [id number] 2.16.840.1.066182.3.579.2.462 Unknown [id number] 2.16840.1.127177.3.579.2.462 Unknown [id number] 2.16840.1.569842.3.579.2.462 Unknown [id number] 2.840.1.419864.3.579.2.462 Social History Date Type Detail Facility Start: 01-15-2022 End: 12-03-2023 Tobacco smoking status RIIS Unknown if ever smoked [facility] Start: 1950 Sex Assigned At Male [facility] Start: 12-01-2024 [facility] Start: 12-29-2024 End: 01-06-2025 Sex Male (finding) [facility] Goals Date Patient Goal Desired Activity /State Functional Status Date Assessment Result Facility 03-31-2022 Functional status Activity Abili ty Unable to Assess [facility] Work Phone: Mental Status Date Assessment Result Facility 03-31-2022 Cognitive function Voice/Name [facility] Work Phone: 02-26-2022 Cognitive function Voice/Name [facility] Work Phone: 10-02-2021 Cognitive function Level Of Cons ciousness Awake;Alert;Appropriate [facility] Work Phone: Clinical Notes 11-11-2024 to 05-09-2025 Note Date & Type Note Facility 05-09-2025 Progress note [facility] 05-09-2025 Progress note Note Date/Time May 09, 2025 2:26pm [facility] [address] [place] [id number] OFFICE VISIT Date of Service: 05/09/25 1401 MR#: [id number] Acct: [id number] Name: JOSE HATHAWAY Rep #: [id number] : 1950 From: Miles Armendariz MD Age/Sex: 74/M Location: [facility] [place] Status: Signed HPI Subjective Date of Service 05/09/25 Chief Complaint F/U for US report. History of Present Illness 74-year-old man was found to have high Ig G level of 1748 on 12/16/2024, M spike was 1.3 IgG lambda light chain specificity, also had IgA. He was referred for further evaluation and management. Skeletal survey on 02/09/[address] n/c/a/p done on 03/27/2025 was negative. He had abdominal US and Liver elastography and comes for follow up. He denies weight loss, fever, night sweats or pain. [facility] Medical History Acute bronchitis, unspecified Anemia [...] colonoscopy History of left heart catheterization (LHC) (~01/16/22) History of transurethral resection of prostate Hx [...] Yes Type: carbonated beverages Intake Vital Signs 04/24/25 10:04 04/27/25 15:01 05/09/25 14:03 Height 5 ft 9 in 5 ft 9 in 5 ft 9 in Weight: 85.729 kg 86.296 kg 86.381 kg BMI 27.8 28.0 28.0 BP 115/69 104/58 L 106/66 Blood Pressure Location Lt brachial Lt brachial Rt brachial Position Sitting Sitting Sitting Respiration 16 16 18 Pulse 69 77 84 Pulse Source Monitor Monitor Monitor Temp 98.2 F 97.7 F L 98.4 F Temperature Source Temporal Artery Temporal Artery Pulse Oximetry (%) 96 93 95 Oxygen Delivery Method room air room air Intake Accompanied by: Is patient in pain?: No Allergies amoxicillin Allergy (Verified 05/09/25 14:05) Swelling nitroglycerin Allergy (Verified 05/09/25 14:05) SEVERE HYPOTENSION hydrocodone (From Vicodin) Adverse Reaction (Verified 05/09/25 14:05) Other Medications ?Medication ?Instructions ?Recorded ?Confirmed ?Type cholecalciferol (vitamin D3) 25 25 mcg PO DAILY supple ment 08/13/21 05/09/25 History mcg (1,000 unit) tablet (Vitamin D3) multivitamin 1 tab PO DAILY supplement 05/09/25 History aspirin 81 mg tablet,delayed 81 mg PO QDAY #90 tabs 05/09/25 Rx release (Adult Aspirin Regimen) cetirizine 10 mg tablet (All Day 10 mg PO DAILY #90 ta bs 11/06/23 05/09/25 Rx Allergy (cetirizine)) compress.stocking,knee,reg,lrg #2 ea 03/03/24 05/09/25 Rx amlodipine 5 mg tablet 5 mg PO QDAY #90 tabs 05/09/25 Rx lisinopril 20 mg tablet 20 mg PO DAILY hypertension #90 08/09/24 05/09/25 Rx tabs MDI spacer #1 ea 12/01/24 05/09/25 Rx fluticasone furoate 100 1 inh inhalation QDAY #30 ea 03/13/25 05/09/25 Rx mcg/actuation blister powder for inhalation (Arnuity Ellipta) albuterol sulfate 90 mcg/actuation 2 puff inhalation Q 4-6H PRN 04/03/25 05/09/25 Rx aerosol inhaler (Ventolin HFA) shortness of breath or wheezing #6.7 grams atorvastatin 40 mg tablet 40 mg PO QPM #90 tabs 05/09/25 Rx glimepiride 2 mg tablet 2 mg PO DAILY 3 months #90 t abs 04/27/25 05/09/25 Rx metformin 1,000 mg tablet 1,000 mg PO BIDCM diabetes # 180 04/27/25 05/09/25 Rx tabs montelukast 10 mg tablet 10 mg PO QPM #90 tabs 05/09/25 Rx pantoprazole 40 mg tablet,delayed 40 mg PO QAM GERD #9 0 tabs 04/27/25 05/09/25 Rx release (Protonix) pioglitazone 30 mg tablet 30 mg PO DAILY #90 tabs 04/1105/09/25 Rx Have you fallen in the past year?: No Central Venous Access Central Venous Access: No 04/27/2025 Abd US and Liver Elastography reviewed. US/ABD Limited w/ Elastography IMPRESSION: MODERATE TO SEVERE HEPATIC FIBROSIS Hepatomegaly. Diffuse fatty infiltration of the liver. Reference Values: SRU <1.37 m/s (5.7kPa): No to mild fibrosis 1.37 m/s - 2.2 m/s: Moderate to severe fibrosis >2.2 m/s (15kPa): Significant fibrosis / cirrhosis METAVIR Score F2 or higher: 1.34 m/s (5.7kPa) F3 or higher: 1.55 m/s (7.3kPa) F4: 1.80 m/s (10kPa) * If the IQR/Med is >30%, the variance in the measurements is a large and the accuracy of the measurement may be in question. Exam Physical Exam Const alert, oriented x3 and no apparent distress Coding Level of Care Code Off vis,est,level 3 Exam Problem Focused Diagnoses Gammopathy, monoclonal D47.2 High total IgG R76.8 Fibrosis of liver K74.00 Assessment and Plan Assessment and Plan (1) Gammopathy, monoclonal: Status: Chronic Comment: M-spike 1.3, IgG Lambda light chain. Asymptomatic. Skeletal survey on 02/09/[address] n/c/a/p on 03/27/2025 reviewed, no evidence of adenopathy or Malignancy. Plan: To do observation. Monitor M-Protein. (2) High total IgG: Status: Chronic Comment: May be related to Liver fibrosis Plan: To do observation. (3) Fibrosis of liver: Status: Acute Comment: Discussed US report, fatty infiltration and Liver fibrosis. Plan: To follow up with Dr. Flores for management. Clinical Quality Measures Falls Risk Screening/Assistive Devices Have you fallen in the past year?: No 05/09/25 1426 <Electronically signed by Miles Kim> Date _ Miles Armendariz MD Cosigner Signature: Date (if applicable) CC: Dr. Timmy Floyd MD; Robert Flores, DO ~ [facility] Work Phone: 1(673) 312-618207-17-2025 Radiology Diagnostic study note [facility] Imaging Services [address] [place] [address] ABD Limited w/ Elastography MR#: [id number] Acct: [id number] Name: JOSE HATHAWAY Rep #: [id number] : 1950 M 74 From: Azam Torres MD PCP: Dr. Timmy Floyd MD Status: R EG CLI Study:ABD Limited w/ Elastography Date of Exa m: 04/27/25 Exam# [id number] Ordering Dr: To Armendariz MD PROCEDURE: ABD LIMITED W/ ELASTOGRAPHY REASON FOR EXAM: MGUS COMPARISON: None. TECHNIQUE: Right upper quadrant abdominal ultrasound. Bobbi ElastQ Imaging shear wave elastography for non-invasive assessment of liver tissue stiffness. Bobbi EPIQ Elite. FINDINGS: LIVER: Size: Hepatomegaly. Length: 18 cm Echotexture: Diffusely echogenic suggesting fatty infiltration Contour: Normal Lesions: None identified Elastography: EQI Med: 10.1 kPa EQI Med Carlos: 1.83 m/s IQR/Med: 17.5 %* GALLBLADDER: Normal COMMON BILE DUCT: Normal measuring 4 mm . PANCREAS: Normal Visualized portions of the right kidney are unremarkable. No right upper quadrant ascites. US/ABD Limited w/ Elastography IMPRESSION: MODERATE TO SEVERE HEPATIC FIBROSIS Hepatomegaly. Diffuse fatty infiltration of the liver. Reference Values: SRU <1.37 m/s (5.7kPa): No to mild fibrosis 1.37 m/s - 2.2 m/s: Moderate to severe fibrosis >2.2 m/s (15kPa): Significant fibrosis / cirrhosis METAVIR Score F2 or higher: 1.34 m/s (5.7kPa) F3 or higher: 1.55 m/s (7.3kPa) F4: 1.80 m/s (10kPa) * If the IQR/Med is >30%, the variance in the measurements is a large and the accuracy of the measurement may be in question. Reading Location: [facility] CC: Dr. Timmy Floyd MD; Dr. Miles Armendariz MD ~ [employer] Department: Signed [facility]06-16-2025 Radiology Diagnostic study note [facility] Imaging Services [address] [place], [place] [id number] CT Chest, Abd, Pel w/Contrast MR#: [id number] Acct: [id number] Name: JOSE HATHAWAY Rep #: [id number] : 1950 M 74 From: Azam Torres MD PCP: Dr. Timmy Floyd MD Status: R EG CLI Study:CT Chest, Abd, Pel w/Contrast Date of E xam: 03/27/25 Exam# [id number] Ordering Dr: To Armendariz MD PROCEDURE: CT [...] mediastinal, hilar or retroperitoneal lymphadenopathy. Reading Location: [place] [address] CC: Dr. Timmy Floyd MD; Dr. Miles Armendariz MD ~ [employer] Department: Signed [facility]06-16-2025 Radiology Diagnostic study note [facility] Imaging Services [address] [place], [place] [id number] Soft Tissue Neck WITH Contrast MR#: [id number] Acct: [id number] Name: JOSE HATHAWAY Rep #: [id number] : 1950 M 74 From: Azam Torres MD PCP: Dr. Timmy Floyd MD Status: R EG CLI Study:Soft Tissue Neck WITH Contrast Date of Exam: 03/27/25 Exam# [id number] Ordering Dr: To Armendariz MD PROCEDURE: SOFT [...] No acute abnormality is seen. Reading Location: [place] [address] CC: Dr. Timmy Floyd MD; Dr. Miles Armendariz MD ~ [employer] Department: Signed [facility]06-02-2025 Evaluation note* Diagnosis Onset Date Resolution Status Admit Date Asthma acute March 13, 2025 1:25pm Gammopathy, monoclonal chronic Ju ne 2024 11:24am Gammopathy, monoclonal chronic Ju ly 2024 9:53am High total IgG chronic April 24, 2025 9:53am Essential hypertension chronic Ju ly 2024 2:56pm High total IgG chronic April 27, 2025 2:56pm Mixed hyperlipidemia chronic April 27, 2025 2:56pm Type 2 diabetes mellitus chronic April 27, 2025 2:56pm Fibrosis of liver acute May 092024 1:59pm Gammopathy, monoclonal chronic Ju ly 2024 1:59pm High total IgG chronic May 09, 2025 1:59pm Fibrosis of liver acute May 19, 2025 9:49am [facility] Work Phone: 1(862) 940-910906-02-2025 Evaluation note* Diagnosis Onset Date Resolution Status Admit Date Asthma acute March 13, 2025 1:25pm Gammopathy, monoclonal chronic Ju ne 2024 11:24am Gammopathy, monoclonal chronic Ju ly 2024 9:53am High total IgG chronic April 24, 2025 9:53am Essential hypertension chronic Ju ly 2024 2:56pm High total IgG chronic April 27, 2025 2:56pm Mixed hyperlipidemia chronic April 27, 2025 2:56pm Type 2 diabetes mellitus chronic April 27, 2025 2:56pm Fibrosis of liver acute May 092024 1:59pm Gammopathy, monoclonal chronic Ju ly 2024 1:59pm High total IgG chronic May 09, 2025 1:59pm Abdominal pain acute May 9:49am Anemia acute May 19 9:49am Fibrosis of liver acute May 19, 2025 9:49am GERD (gastroesophageal reflu x disease) chronic May 19, 2025 9:49am [facility] Work Phone: 1(659) 462-752605-04-2025 Radiology Diagnostic study note [facility] Imaging Services [address] [place] [address] Bone Survey Comp(Axial&Append) MR#: [id number] Acct: [id number] Name: JOSE HATHAWAY Rep #: [id number] : 1950 M 74 From: López Strong MD PCP: Dr. Timmy Floyd MD Status: R EG CLI Study:Bone Survey Comp(Axial&Append) Date of Exam: 02/09/25 Exam# [id number] Ordering Dr: To Armendariz MD PROCEDURE: BONE [...] Comp(Axial&Append) IMPRESSION: NEGATIVE BONE SURVEY. Reading Location: [id number] CC: Dr. Timmy Floyd MD; Dr. Miles Armendariz MD ~ [employer] Department: Signed [facility]03-31-2025 Evaluation note* Diagnosis Onset Date Resolution Status Admit Date Gammopathy, monoclonal chronic Ma [facility] 2024 2:52pm Asthma acute March 13, 2025 1:25pm Gammopathy, monoclonal chronic Ju ne 2024 11:24am Gammopathy, monoclonal chronic Ju ly 2024 9:53am High total IgG chronic April 24, 2025 9:53am Essential hypertension chronic Ju ly 2024 2:56pm High total IgG chronic April 27, 2025 2:56pm Mixed hyperlipidemia chronic April 27, 2025 2:56pm Type 2 diabetes mellitus chronic April 27, 2025 2:56pm Fibrosis of liver acute May 092024 1:59pm Gammopathy, monoclonal chronic Ju ly 2024 1:59pm High total IgG chronic May 09, 2025 1:59pm [facility] Work Phone: 1(637) 410-329703-24-2025 Evaluation note* Diagnosis Onset Date Resolution Status Admit Date Osteopenia determined by x-ray acute January 02, 2025 3:04pm Essential hypertension chronic Ma [facility] 2024 3:04pm Mixed hyperlipidemia chronic Enrique h 2024 3:04pm Type 2 diabetes mellitus chronic January 02, 2025 3:04pm Gammopathy, monoclonal chronic Ma h 2024 2:52pm Asthma acute March 13, 2025 1:25pm Gammopathy, monoclonal chronic Ju ne 2024 11:24am Gammopathy, monoclonal chronic Ju ly 2024 9:53am High total IgG chronic April 24, 2025 9:53am [facility] Work Phone: 1(716) 936-869703-24-2025 Evaluation note* Diagnosis Onset Date Resolution Status Admit Date Osteopenia determined by x-ray acute January 02, 2025 3:04pm Essential hypertension chronic Ma [facility] 2024 3:04pm Mixed hyperlipidemia chronic Enrique h 2024 3:04pm Type 2 diabetes mellitus chronic January 02, 2025 3:04pm Gammopathy, monoclonal chronic Ma [facility] 2024 2:52pm Asthma acute March 13, 2025 1:25pm Gammopathy, monoclonal chronic Ju ne 2024 11:24am Gammopathy, monoclonal chronic Ju ly 2024 9:53am High total IgG chronic April 24, 2025 9:53am Essential hypertension chronic Ju ly 2024 2:56pm High total IgG chronic April 27, 2025 2:56pm Mixed hyperlipidemia chronic April 27, 2025 2:56pm Type 2 diabetes mellitus chronic April 27, 2025 2:56pm [facility] Work Phone: 1(268) 164-249402-20-2025 Evaluation note* Diagnosis Onset Date Resolution Status Admit Date Acute bronchitis, unspecified acute December 01, 2024 1:23pm Abdominal pain acute December 16, 2024 9:56am Anemia acute December 16 9:56am GERD (gastroesophageal reflu x disease) chronic December 16, 2024 9:56am Bronchitis acute December 21 3:24pm Osteopenia determined by x-ray acute December 21, 2024 3:24pm Gammopathy, monoclonal chronic Ma [facility] 2024 3:24pm Osteopenia determined by x-ray acute January 02, 2025 3:04pm Essential hypertension chronic Ma [facility] 2024 3:04pm Mixed hyperlipidemia chronic Enrique h 2024 3:04pm Type 2 diabetes mellitus chronic January 02, 2025 3:04pm Gammopathy, monoclonal chronic [facility] 2024 2:52pm Asthma acute March 13, 2025 1:25pm [facility] Work Phone: 1(434) 432-690602-20-2025 Evaluation note* Diagnosis Onset Date Resolution Status Admit Date Acute bronchitis, unspecified acute December 01, 2024 1:23pm Abdominal pain acute December 16, 2024 9:56am Anemia acute December 16 9:56am GERD (gastroesophageal reflu x disease) chronic December 16, 2024 9:56am Bronchitis acute December 21 3:24pm Osteopenia determined by x-ray acute December 21, 2024 3:24pm Gammopathy, monoclonal chronic [facility] 2024 3:24pm Osteopenia determined by x-ray acute January 02, 2025 3:04pm Essential hypertension chronic Ma [facility] 2024 3:04pm Mixed hyperlipidemia chronic Enrique h 2024 3:04pm Type 2 diabetes mellitus chronic January 02, 2025 3:04pm Gammopathy, monoclonal chronic Ma [facility] 2024 2:52pm Asthma acute March 13, 2025 1:25pm Gammopathy, monoclonal chronic Ju de 2024 11:24am [facility] Work Phone: [phone]) [phone] Evaluation note* Diagnosis Onset Date Resolution Status [...] 21, 2024 3:24pm Gammopathy, monoclonal chronic Ma [facility] 2024 3:24pm Osteopenia determined by x-ray acute January 02, 2025 3:04pm Essential hypertension chronic [facility] 2024 3:04pm Mixed hyperlipidemia chronic Enrique 2024 3:04pm Type 2 diabetes mellitus chronic January 02, 2025 3:04pm Gammopathy, monoclonal chronic [facility] 2024 2:52pm [facility] Work Phone: 1(653) 224-530801-31-2025 Evaluation note* Diagnosis Onset Date Resolution Status Admit Date Abnormal stress test acute [facility] 2024 9:46am Essential hypertension chronic [facility] 2024 9:46am Mixed hyperlipidemia chronic [place] [facility] 2024 9:46am Acute bronchitis, unspecified acute November 21, 2024 3:25pm Acute bronchitis, unspecified acute December 01, 2024 1:23pm Abdominal pain acute December 16, 2024 9:56am Anemia acute December 16 9:56am GERD (gastroesophageal reflu x disease) chronic December 16, 2024 9:56am Bronchitis acute December 21 3:24pm Gammopathy, monoclonal acute [facility] 2024 3:24pm Osteopenia determined by x-ray acute December 21, 2024 3:24pm [facility] Work Phone: 1(212) 956-489101-31-2025 Evaluation note* Diagnosis Onset Date Resolution Status Admit Date Abnormal stress test acute [place] 2024 9:46am Essential hypertension chronic [facility] 2024 9:46am Mixed hyperlipidemia chronic [place] [facility] 2024 9:46am Acute bronchitis, unspecified acute November 21, 2024 3:25pm Acute bronchitis, unspecified acute December 01, 2024 1:23pm Abdominal pain acute December 16, 2024 9:56am Anemia acute December 16 9:56am GERD (gastroesophageal reflu x disease) chronic December 16, 2024 9:56am Bronchitis acute December 21 3:24pm Gammopathy, monoclonal acute [facility] 2024 3:24pm Osteopenia determined by x-ray acute December 21, 2024 3:24pm Osteopenia determined by x-ray acute January 02, 2025 3:04pm Essential hypertension chronic Ma [facility] 2024 3:04pm Mixed hyperlipidemia chronic Enrique h 2024 3:04pm Type 2 diabetes mellitus chronic January 02, 2025 3:04pm [facility] Work Phone: 1([phone]) 281-883001-31-2025 Evaluation note* Diagnosis Onset Date Resolution Status [...] 21, 2024 3:24pm Gammopathy, monoclonal chronic [facility] 2024 3:24pm Osteopenia determined by x-ray acute January 02, 2025 3:04pm Essential hypertension chronic [facility] 2024 3:04pm Mixed hyperlipidemia chronic Enrique h 2024 3:04pm Type 2 diabetes mellitus chronic January 02, 2025 3:04pm Gammopathy, monoclonal chronic [facility] 2024 2:52pm [facility] Work Phone: Evaluation note* Diagnosis Onset Date Resolution Status Constipated acute Dizziness acute Leg cramps acute Constipated acute Dysphagia acute Segmental colitis associated with diverticulosis acute Angina pectoris acute Dizziness acute Essential hypertension acute Mixed hyperlipidemia acute Palpitations acute [facility] Work Phone: Evaluation note* Diagnosis Onset Date Resolution Status Constipated acute Dysphagia acute Segmental colitis associated with diverticulosis acute Angina pectoris acute Dizziness acute Essential hypertension acute Mixed hyperlipidemia acute Palpitations acute [facility] Work Phone: Evaluation note* Diagnosis Onset Date Resolution Status Constipated acute Dysphagia acute Segmental colitis associated with diverticulosis acute Angina pectoris acute Dizziness acute Essential hypertension acute Mixed hyperlipidemia acute Palpitations acute SOB (shortness of breath) on exertion acute [facility] Work Phone: Evaluation note* Diagnosis Onset Date Resolution Status Constipated acute Dysphagia acute Segmental colitis associated with diverticulosis acute Angina pectoris acute Dizziness acute Essential hypertension acute Mixed hyperlipidemia acute Palpitations acute SOB (shortness of breath) on exertion acute SOB (shortness of breath) on exertion acute [facility] Work Phone: Evaluation note* Diagnosis Onset Date Resolution Status Constipated acute Dysphagia acute Segmental colitis associated with diverticulosis acute Angina pectoris acute Dizziness acute Essential hypertension acute Mixed hyperlipidemia acute Palpitations acute SOB (shortness of breath) on exertion acute SOB (shortness of breath) on exertion acute GERD (gastroesophageal reflux disease) acute Segmental colitis associated with diverticulosis acute Slow transit constipation ac [place] Chest pain acute Vertigo acute [facility] Work Phone: Evaluation note* Diagnosis Onset Date Resolution Status Constipated acute Dysphagia acute Segmental colitis associated with diverticulosis acute Angina pectoris acute Essential hypertension acute Mixed hyperlipidemia acute Palpitations chronic Dizziness resolved SOB (shortness of breath) on exertion acute SOB (shortness of breath) on exertion acute GERD (gastroesophageal reflux disease) acute Segmental colitis associated with diverticulosis acute Slow transit constipation ac [place] Chest pain resolved Vertigo resolved Angina pectoris acute Essential hypertension acute Mixed hyperlipidemia acute Palpitations chronic Dizziness resolved [facility] Work Phone: Evaluation note* Diagnosis Onset Date Resolution Status SOB (shortness of breath) on exertion acute SOB (shortness of breath) on exertion acute GERD (gastroesophageal reflux disease) acute Segmental colitis associated with diverticulosis acute Slow transit constipation ac [place] Chest pain resolved Vertigo resolved Angina pectoris acute Essential hypertension acute Mixed hyperlipidemia acute Palpitations chronic Dizziness resolved SOB (shortness of breath) on exertion acute [facility] Work Phone: Evaluation note* Diagnosis Onset Date Resolution Status Asthma acute [facility] Work Phone: Evaluation note* Diagnosis Onset Date Resolution Status Asthma acute Health care maintenance acut e Essential hypertension chron ic Type 2 diabetes mellitus chr onic [facility] Work Phone: Evaluation note* Diagnosis Onset Date Resolution Status Essential hypertension chron ic GERD (gastroesophageal reflux disease) chronic Mixed hyperlipidemia chronic Obesity chronic Type 2 diabetes mellitus chr onic Delayed gastric emptying acu te GERD (gastroesophageal reflux disease) chronic Slow transit constipation ch ronic Abdominal pain acute Essential hypertension chron ic Type 2 diabetes mellitus chr onic [facility] Work Phone[facility] Work Phone: Reason for referral (narrative)No reason for referral information availableWHighland District Hospital Work Phone: Chief Complaint and Reason [...] Chest pain Vertigo Chief Complaint FU CP/REF. 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 EST CARE - PPW SENT Reason for [...] 2024 9:56 am GERD (gastroesophageal reflux disease) [facility] 2024 9:56am Bronchitis December 21, 2024 3:2 [...] 2024 9:56 am GERD (gastroesophageal reflux disease) [facility] 2024 9:56am Bronchitis December 21, 2024 3:2 [...] 2024 9:56 am GERD (gastroesophageal reflux disease) [facility] 2024 9:56am Bronchitis December 21, 2024 3:2 [...] 2024 9:56 am GERD (gastroesophageal reflux disease) [facility] 2024 9:56am Bronchitis December 21, 2024 3:2 [...] March 13, 2025 1:25p m E ORDERS Bebe 9th, 2025 7:19a m 12WKS LABS PRIOR March [...] M FU April 27, 2025 2:56 pm Reason for Visit Admit Date Osteopenia determined [...] total IgG April 24, 2025 9:53 am Essential hypertension April 27, 2025 2 :56pm High total IgG April 27, 2025 2:56 pm Mixed hyperlipidemia April 27, 2025 2:5 6pm Type 2 diabetes mellitus April 27, 2025 2:56pm Chief Complaint Admit Date chk up January 02, 2025 3:0 4pm [...] M FU April 27, 2025 2:56 pm Chief Complaint Admit Date ELEVATED IGG, M-SPIKE January 09, 2025 2 [...] M FU April 27, 2025 2:56 pm 2WKS NO LABS REVIEW ELASTOGRAPHY May 092024 1:59pm Reason for Visit Admit Date Gammopathy, monoclonal January 09, 2025 2:52pm Asthma March 13, 2025 1:25p m Gammopathy, monoclonal March 27, 2025 1 1:24am Gammopathy, monoclonal April 24, 2025 9 :53am High total IgG April 24, 2025 9:53 am Essential hypertension April 27, 2025 2 :56pm High total IgG April 27, 2025 2:56 pm Mixed hyperlipidemia April 27, 2025 2:5 6pm Type 2 diabetes mellitus April 27, 2025 2:56pm Fibrosis of liver May 09, 2025 1:59 pm Gammopathy, monoclonal May 09, 2025 1 :59pm High total IgG May 09, 2025 1:59 pm Chief Complaint Admit Date 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, 2025 8:41am ACUTE-DEEP COUGH [...] M FU April 27, 2025 2:56 pm 2WKS NO LABS REVIEW ELASTOGRAPHY May 092024 1:59pm 6 M FU May 19, 2025 9:4 9am Reason for Visit Admit Date Asthma March 13, 2025 1:25p m Gammopathy, monoclonal March 27, 2025 1 1:24am Gammopathy, monoclonal April 24, 2025 9 :53am High total IgG April 24, 2025 9:53 am Essential hypertension April 27, 2025 2 :56pm High total IgG April 27, 2025 2:56 pm Mixed hyperlipidemia April 27, 2025 2:5 6pm Type 2 diabetes mellitus April 27, 2025 2:56pm Fibrosis of liver May 09, 2025 1:59 pm Gammopathy, monoclonal May 09, 2025 1 :59pm High total IgG May 09, 2025 1:59 pm Fibrosis of liver May 19, 2025 9:4 9am Chief Complaint Admit Date 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, 2025 8:41am ACUTE-DEEP COUGH [...] M FU April 27, 2025 2:56 pm 2WKS NO LABS REVIEW ELASTOGRAPHY May 092024 1:59pm 6 M FU May 19, 2025 9:4 9am INT LABS May 19, 2025 10: 37am Reason for Visit Admit Date Asthma March 13, 2025 1:25p m Gammopathy, monoclonal March 27, 2025 1 1:24am Gammopathy, monoclonal April 24, 2025 9 :53am High total IgG April 24, 2025 9:53 am Essential hypertension April 27, 2025 2 :56pm High total IgG April 27, 2025 2:56 pm Mixed hyperlipidemia April 27, 2025 2:5 6pm Type 2 diabetes mellitus April 27, 2025 2:56pm Fibrosis of liver May 09, 2025 1:59 pm Gammopathy, monoclonal May 09, 2025 1 :59pm High total IgG May 09, 2025 1:59 pm Abdominal pain May 19, 2025 9:4 9am Anemia May 19, 2025 9:4 9am Fibrosis of liver May 19, 2025 9:4 9am GERD (gastroesophageal reflux disease) A ugust 2024 9:49am Family History No Family History Records Found [...] No January 15, 2022 8:24am Power of Movie Theater Manager No January 15 8:24am Advance Directive Response Recorded Date/ Time Advance Directives No January 16 7:03am Living Will No January 16, 2022 7:03am Power of Movie Theater Manager No January 16 7:03am Advance Directive Response Recorded Date/ Time Advance Directives No January 16 7:03am Living Will No February 25, 2022 1 0:26am Power of Movie Theater Manager No February 25, 2022 10:26am Advance Directives on File No January 16, 2022 7:03am Advance Directive Response Recorded Date/ Time Advance Directives on File No January 16, 2022 7:03am Advance Directives No January 16 7:03am Living Will Yes March 31, 2022 12:37am Power of Movie Theater Manager No March 31 12:37am Advance Directive Response Recorded Date/ Time Advance Directives No January 16 7:03am Living Will Yes March 31, 2022 12:37am Power of Movie Theater Manager No March 31 12:37am Advance Directive Response Recorded Date/ Time Advance Directives No January 16 7:03am Living Will No April 24, 2023 11:19pm Power of Movie Theater Manager No April 24 11:19pm Advance Directive Response Recorded Date/ Time Advance Directives No January 16 6:03am Living Will No April 24, 2023 10:19pm Power of Movie Theater Manager No April 24 10:19pm Advance Directive Response Recorded Date/ Time Living Will No April 24, 2023 11:19pm Do you have a Healthcare Power of Movie Theater Manager? No April 24, 2023 11:19pm Living Will Yes July 13 11:45am Do you have a Healthcare Power of Movie Theater Manager? Yes July 13, 2024 11:45am Advance Directives Yes November 3:15pm Advance Directive Response Recorded Date/ Time Living Will No April 24, 2023 11:19pm Do you have a Healthcare Power of Movie Theater Manager? No April 24, 2023 11:19pm Advance Directives [...] April 27, 2025 End: April 27, 2025 Team Status: Inactive Member Role/Relationship Status Dates Dr. Timmy Floyd MD Primary Care Provider Active Start: April 21, 2025 End: April 21, 2025 Dr. Timmy Floyd MD Attending Provider Active Start: April 21, 2025 End: April 21, 2025 Dr. Timmy Floyd MD Referring Provider Active Start: April 21, 2025 End: April 21, 2025 Team Status: Inactive Member [...] Care Provider Active Start: April 21, 2025 End: April 21, 2025 Dr. Timmy Floyd MD Attending Provider Active Start: April 21, 2025 End: April 21, 2025 Dr. Timmy Floyd MD Referring Provider Active Start: April 21, 2025 End: April 21, 2025 Team Status: Inactive Member Role/Relationship Status Dates Dr. Timmy Floyd MD Primary Care Provider Active Start: April 24, 2025 End: April 24, 2025 Dr. Timmy Floyd MD Referring Provider Active Start: April 24, 2025 End: April 24, 2025 Dr. Miles Armendariz MD Attending Provider Active S tart: April 24, 2025 End: April 24, 2025 Team Status: Inactive Member Role/Relationship Status Dates Dr. Timmy Floyd MD Primary Care Provider Active Start: April 27, 2025 End: April 27, 2025 Dr. Miles Armendariz MD Attending Provider Active S tart: April 27, 2025 End: April 27, 2025 Dr. Miles Armendariz MD Referring Provider Active S tart: April 27, 2025 End: April 27, 2025 Team Status: Inactive Member Role/Relationship Status Dates Dr. Timmy Floyd MD Primary Care Provider Active Start: April 27, 2025 End: April 27, 2025 Dr. Timmy Floyd MD Attending Provider Active Start: April 27, 2025 End: April 27, 2025 Dr. Timmy Floyd MD Referring Provider Active Start: April 27, 2025 End: April 27, 2025 Team Status: Inactive Member [...] Care Provider Active Start: April 21, 2025 End: April 21, 2025 Dr. Timmy Floyd MD Attending Provider Active Start: April 21, 2025 End: April 21, 2025 Dr. Timmy Floyd MD Referring Provider Active Start: April 21, 2025 End: April 21, 2025 Team Status: Inactive Member Role/Relationship Status Dates Dr. Timmy Floyd MD Primary Care Provider Active Start: April 24, 2025 End: April 24, 2025 Dr. Timmy Floyd MD Referring Provider Active Start: April 24, 2025 End: April 24, 2025 Dr. Miles Armendariz MD Attending Provider Active S tart: April 24, 2025 End: April 24, 2025 Team Status: Inactive Member Role/Relationship Status Dates Dr. Timmy Floyd MD Primary Care Provider Active Start: April 27, 2025 End: April 27, 2025 Dr. Miles Armendariz MD Attending Provider Active S tart: April 27, 2025 End: April 27, 2025 Dr. Miles Armendariz MD Referring Provider Active S tart: April 27, 2025 End: April 27, 2025 Team Status: Inactive Member Role/Relationship Status Dates Dr. Timmy Floyd MD Primary Care Provider Active Start: April 27, 2025 End: April 27, 2025 Dr. Timmy Floyd MD Attending Provider Active Start: April 27, 2025 End: April 27, 2025 Dr. Timmy Floyd MD Referring Provider Active Start: April 27, 2025 End: April 27, 2025 Team Status: Inactive Member Role/Relationship Status Dates Dr. Timmy Floyd MD Primary Care Provider Active Start: May 09, 2025 End: May 09, 2025 Dr. Timmy Floyd MD Referring Provider Active Start: May 09, 2025 End: May 09, 2025 Dr. Miles Armendariz MD Attending Provider Active S tart: May 09, 2025 End: May 09, 2025 Team Status: Inactive Member Role/Relationship [...] Care Provider Active Start: April 21, 2025 End: April 21, 2025 Dr. Timmy Floyd MD Attending Provider Active Start: April 21, 2025 End: April 21, 2025 Dr. Timmy Floyd MD Referring Provider Active Start: April 21, 2025 End: April 21, 2025 Team Status: Inactive Member Role/Relationship Status Dates Dr. Timmy Floyd MD Primary Care Provider Active Start: April 24, 2025 End: April 24, 2025 Dr. Timmy Floyd MD Referring Provider Active Start: April 24, 2025 End: April 24, 2025 Dr. Miles Armendariz MD Attending Provider Active S tart: April 24, 2025 End: April 24, 2025 Team Status: Inactive Member Role/Relationship Status Dates Dr. Timmy Floyd MD Primary Care Provider Active Start: April 27, 2025 End: April 27, 2025 Dr. Miles Armendariz MD Attending Provider Active S tart: April 27, 2025 End: April 27, 2025 Dr. Miles Armendariz MD Referring Provider Active S tart: April 27, 2025 End: April 27, 2025 Team Status: Inactive Member Role/Relationship Status Dates Dr. iTmmy Floyd MD Primary Care Provider Active Start: April 27, 2025 End: April 27, 2025 Dr. Timmy Floyd MD Attending Provider Active Start: April 27, 2025 End: April 27, 2025 Dr. Timmy Floyd MD Referring Provider Active Start: April 27, 2025 End: April 27, 2025 Team Status: Inactive Member Role/Relationship Status Dates Dr. Timmy Floyd MD Primary Care Provider Active Start: May 09, 2025 End: May 09, 2025 Dr. Timmy Floyd MD Referring Provider Active Start: May 09, 2025 End: May 09, 2025 Dr. Miles Armendariz MD Attending Provider Active S tart: May 09, 2025 End: May 09, 2025 Team Status: Inactive Member Role/Relationship Status Dates Dr. Timmy Floyd MD Primary Care Provider Active Start: May 19, 2025 End: May 19, 2025 Dr. Timmy Floyd MD Referring Provider Active Start: May 19, 2025 End: May 19, 2025 Dr. Robert Flores DO Attending Provider Active Start: May 19, 2025 End: May 19, 2025 Team Status: Inactive Member Role/Relationship Status Dates Dr. Timmy Floyd MD Primary Care Provider Active Start: May 19, 2025 End: May 19, 2025 Dr. Robert Flores DO Attending Provider Active Start: May 19, 2025 End: May 19, 2025 Dr. Robert Flores DO Referring Provider Active Start: May 19, 2025 End: May 19, 2025 (unrecognized sect ion and content) No Status Records Found INFORMATION SOURCE (unrecogn ized section and content) DATE CREATED AUTHOR 06/08/2025 [facility] FOR RECORDS PERTAINING TO PATIENTS [...] BE BASED ON THE PRIMARY CLINICAL RECORDS. [facility]. provides no warranty or guarantee of the accuracy or completeness of information in this document.
[2025-07-05 19:51] VITALS: BP 132/69; PULSE 72; RESP 15; TEMP 36.6; O2SAT 97
== END 2025-07-05 19:51 | disposition home or self-care (01) ==
PROVIDERS: Emergency Provider Emergency Medicine; PCP Internal Medicine; Visit Provider Emergency Medicine
DX: M79.661 Pain in right lower leg (principal); E11.9 Type 2 diabetes mellitus without complications; Z96.653 Presence of artificial knee joint, bilateral; I10 Essential (primary) hypertension; E78.2 Mixed hyperlipidemia; Z79.82 Long term (current) use of aspirin
CPT/HCPCS: 93971; 99282

== ENCOUNTER → 2025-08-28 | Outpatient (CLI) | payer MEDICARE, OTHER, SELFPAY ==
[2025-08-28 09:12] LABS: Hematocrit 36.8 % (40-54); Hemoglobin 12.3 g/dL (13.0-16.5); Immature Granulocytes Count 0.020 X10^3/uL (0.0-0.0); Mean Corp Hgb Conc 33.4 g/dL (32-36); Mean Corpuscular Volume 94.1 fL (80-94); Mean Platelet Vol. 9.4 fl (6.2-12.0); NRBC Flagged by Analyzer 0 % (0-5); Platelet Count 385 K/mm3 (150-450); RBC Distribution Width CV 12.9 % (11.6-14.6); RBC Distribution Width SD 44.1 fl (35.1-43.9); Red Blood Count 3.91 M/mm3 (4.6-6.2); White Blood Count 7.9 K/mm3 (4.4-11.0)
[2025-08-28 10:05] LABS: AST(SGOT) 18 U/L (<=37); Alanine Aminotransfer ALT/SGPT 13 U/L (<=46); Albumin, Serum 4.3 g/dL (3.4-4.8); Alkaline Phosphatase 86 U/L (40-129); Anion Gap 10 (5-15); BUN 30 mg/dL (4-19); BUN/Creat Ratio 26.6 RATIO (10-20); Calcium,Total 9.9 mg/dL (7.6-11.0); Carbon Dioxide 24.1 mmol/L (21.0-32.0); Chloride 106 mmol/L (98-108); Globulin 3.5 g/dL (2.2-4.2); Glucose 115 mg/dL (70-99); LDH 147 U/L (87-241); Potassium 4.6 mmol/L (3.3-5.1)
--- NOTE | 2025-08-28 11:23 | CT_ITS ---
PROCEDURE: ABDOMEN/PELVIS WITH CONTRAST 08/28/2025 REASON FOR EXAM: UNILATERAL LEG SWELLING. R BUTTOCK PAIN TECHNIQUE: Procedure Code: [id number] Modality: CT Procedure: ABDOMEN/PELVIS WITH CONTRAST Coronal and Sagittal reconstruction series were provided. CONTRAST: Isovue 370 VOLUME: 100 mL One or more dose reduction techniques were used (e.g., Automated exposure control, adjustment of the mA and/or kV according to patient size, use of iterative reconstruction technique. RADIATION DOSE SUMMARY: CTDlvol: 34.23 mGy DLP: 858.35 mGycm COMPARISON: 03/27/2025 FINDINGS: Lung bases: Mild dependent atelectasis Liver: Normal size. No mass. Gallbladder: Unremarkable Spleen: Normal size. Pancreas: Normal size without evidence of mass surrounding inflammation or ductal dilation. Adrenals: Unremarkable Kidneys: No obstructive uropathy or suspicious solid renal lesion. Subcentimeter cortical cysts noted in both kidneys. Bladder: Distends normally Bowel: Retained stool noted throughout the colon with scattered diverticula but no CT evidence of acute diverticulitis. No demonstrated obstruction or acute inflammation. Appendix: Normal appendix seen on coronal recon images 54 through 66 Lymph nodes: No suspicious mesenteric or retroperitoneal adenopathy Vasculature: Mild diffuse atherosclerotic calcifications are noted. Peritoneum / Retroperitoneum: No free fluid or air Bones: Age consistent degenerative changes, subchondral cyst formation noted in both femoral heads and in the right acetabulum. CT/Abdomen/Pelvis WITH Contrast IMPRESSION: No suspicious solid organ abnormality Retained stool throughout the colon with scattered colonic diverticula, no CT e vidence of acute diverticulitis. Normal appendix visualized No free intraperitoneal fluid, air, or suspicious adenopathy Reading Location: [id number]
[2025-08-28 13:54] LABS: CREATININE FINGERSTICK 1.0 mg/dL (0.70-1.30); EGFR FINGERSTICK > 60.0000 mL/min (>60)
[2025-08-31 14:09] LABS: Albumin 3.7 g/dL (2.9-4.4); Gamma Globulin 1.4 g/dL (0.4-1.8); Immunoglobulin A 60 mg/dL (61-437); Immunoglobulin G 1711 mg/dL (603-1613); Immunoglobulin M 35 mg/dL (15-143); PROEL- TOTAL PROTEIN 7.2 g/dL (6.0-8.5)
== END | disposition home or self-care (01) ==
LOC: CT 11:22
PROVIDERS: Internal Medicine Medical Oncology; PCP Internal Medicine; Referring Provider Internal Medicine; Visit Provider Internal Medicine
DX: Z01.812 Encounter for preprocedural laboratory examination (principal); M79.89 Other specified soft tissue disorders; M79.18 Myalgia, other site; R76.81 Abnormal rheumatoid factor and anti-citrullinated protein antibody without rheumatoid arthritis; D47.2 Monoclonal gammopathy
CPT/HCPCS: 36415; 74177; 80053; 82784; 83615; 83883; 84165; 85025; 86334; Q9967